=== PATIENT | female | born 1950 | race African-American/Black ===

== ENCOUNTER 2020-05-11 12:39 | Inpatient (IN) | payer OTHER ==
[2020-05-11] MEDS ORDERED: ACETAMINOPHEN 1000 MG/100 ML VIAL (NON FORMULARY) IVPB ONE (13:48)
--- NOTE | 2020-05-11 14:19 | PDOC ---
History of Present Illness - General Chief Complaint: Shortness of Breath Stated Complaint: CHF Time Seen by Provider: 05/11/20 13:10 History Source: Patient Exam Limitations: No Limitations - History of Present Illness Initial Comments: Herlinda logan is a 70 F with a PMH of Uncontrolled DM, Diabetic foot ulcer on R. foot, Chronic osteomyelitis of right foot, Diabetic neuropathy, Left leg below knee amputation, OA, Iron deficiency anemia, HLD, HTN, Charcot's joint, ESBL resistance and HF, was sent from [facility] for AMS, swelling of R.arm and face. Patient states that since last week she has experienced worsening SOB and swelling of her R.arm, abdomen, b/l legs, and face for 1 month. She reports a new onset of Right shoulder pain, that started yest erday, no falls/trauma. As per [facility] nursing team ([phone]), yesterday patient desat to 78% on RA, 2L NC sat to 90%, BP was elevated 165/95 (baseline aroun 150s/90s), patient was drooling, No falls, patient takes Lasix 40mg BID, last dose yesterday. 05/11/20 15:03 Past History - Medical History Allergies/Adverse Reactions: Allergies Allergy/AdvReac Type Severity Reaction Status Date / Time No Known Allergies Allergy Verified 05/11/20 13:38 CVA: Yes COPD: No CHF: Yes Diabetes: Yes HTN: Yes Hypercholesterolemia: Yes - Reproductive History Is Patient Now?: No - Psycho-Social/Smoking History Smoking History: Never smoked Have you smoked in the past 12 months: No Information on smoking cessation initiated: No - Substance Abuse Hx (Audit-C & DAST Scrn) How often the patient has a drink containing alcohol: Never Score: In Men: 4 or > Positive; In Women: 3 or > Positive: 0 Screen Result (Pos requires Nsg. Audit-10AR): Negative In the last yr the pt used illegal drug/Rx for NonMed reason: No Score: Yes response is considered Positive: 0 Screen Result (Positive result requires Nsg. DAST-10): Negative Review of Systems - Review of Systems Able to Perform ROS?: Yes Is the patient limited Sinhala proficient: No Constitutional: Yes: Chills. No: Fever, Loss of Appetite, Weakness HEENTM: No: Eye Pain, Blurred Vision, Nose Congestion, Throat Pain, Throat Swelling, Difficulty Swallowing Respiratory: Yes: Shortness of Breath, SOB at Rest, Wheezing. No: Cough, Productive cough Cardiac (ROS): Yes: Edema. No: Chest Pain, Irregular Heart Rate, Lighth eadedness, Syncope ABD/GI: Yes: Abdominal Distended. No: Constipated, Diarrhea, Vomiting : No: Burning, Dysuria Musculoskeletal: Yes: Joint Pain (b/l hip pain, right shoulder pain). No: Back Pain Integumentary: No: Bruising Neurological: No: Headache, Numbness, Tingling, Dizziness *Physical Exam - Vital Signs Last Vital Signs Temp Pulse Resp BP Pulse Ox 97.4 F L 92 H 17 169/101 H 97 05/11/20 12:59 05/11/20 12:59 05/11/20 12:59 05/11/20 12:59 05/11/20 12:59 - Physical Exam General Appearance: Yes: Apparent Distress, Moderate Distress HEENT: positive: EOMI, LUCIA. negative: Nasal Congestion, Rhinorrhea, Excessive drooling Neck: positive: Supple. negative: Tender, Rigid, Carotid bruit Respiratory/Chest: positive: Decreased Breath Sounds, Rales (b/l middle and lower lung worthy), Wheezing (inspiratory). negative: Chest Tender Vascular Pulses: Carotid (R): 2+, Carotid (L): 2+, Dorsalis-Pedis (R): 1+ Gastrointestinal/Abdominal: positive: Soft, Protuberent. negative: Tender, Tenderness Extremity: positive: Pedal Edema. negative: Calf Tenderness Integumentary: positive: Swelling (r. arm, face, eyes, ), Other (right foot s3 diabetic ulcer on the lateral aspect. dark skin discolorations extending to leg.) ED Treatment Course - LABORATORY CBC & Chemistry Diagram: 05/11/20 13:40 05/11/20 13:40 - RADIOLOGY Radiology Studies Ordered: Category Date Time Status CXRPORT [CHEST X-RAY PORTABLE*] [RAD] Stat Radiology 05/11/20 13:33 Completed DUPLEX VASCUL US-1 LEG [US] Stat Ultrasound 05/11/20 14:09 Ordered Medical Decision Making - Medical Decision Making 70 F with a PMH of Uncontrolled DM, Diabetic foot ulcer on R. foot, Chronic osteomyelitis of right foot, Diabetic neuropathy, Left leg below knee amputation, OA, Iron deficiency anemia, HLD, HTN, Charcot's joint, ESBL res istance and HF, was sent from [facility] for AMS, swelling of R.arm and face. #CHF exacerbation #possible Pneumonia - CXR: Cardiomegaly, fullness of the chirag and congestive changes with right pleural fluid. superimposed infiltrates cannot be excluded - u/s Upper R extremity and R. Lower extremity: No DVT - Shoulder XR: - LAB: - WBC 14.6 (4.2- 04/28/20-[facility]), BUN/Crea 34.3/2.0 (32/1.40) - AST: 909(23), ALT 748(35), AKLP 351(268) - Trop 0.25, BNP 75508 - Furosemide 40 mg (home Lasix 40mg BID), Acetaminophen 1000mg, Vanc 1g + Azithromycin 500mg + Zosyn 4.5 - BLD cultures 05/11/20 16:54 05/11/20 17:42 Discharge - Discharge Information Problems reviewed: Yes Clinical Impression/Diagnosis: Elevated liver enzymes Acute on chronic renal failure Qualifiers: Acute renal failure type: unspecified Chronic kidney disease stage: unspecified stage Qualified Code(s): N17.9 - Acute kidney failure, unspecified Right lower lobe pneumonia Qualifiers: Pneumonia type: due to unspecified organism Qualified Code(s): J18.9 - Pneumonia, unspecified organism CHF (congestive heart failure) Qualifiers: Heart failure type: unspecified Heart failure chronicity: unspecified Qualified Code(s): I50.9 - Heart failure, unspecified Condition: Guarded - Admission Yes - Follow up/Referral Referrals: ON STAFF,NOT [Primary Care Provider] - - Patient Discharge Instructions - Post Discharge Activity
[2020-05-11] MEDS ORDERED: ACETAMINOPHEN INJECTION 100 ML IVPB ONE (14:27)
[2020-05-11 14:52] LABS: BASO % 0.2 % (0-2.0); HEMATOCRIT 35.9 % (32.4-45.2); HEMOGLOBIN 11.3 GM/dL (10.7-15.3); LYMPH % 2.3 % (8-40); MCH 27.1 pg (25.7-33.7); MCHC 31.4 g/dl (32.0-36.0); MEAN CELL VOLUME 86.5 fl (80-96); MEAN PLT VOLUME 9.2 fl (7.5-11.1); MONO % 5.1 % (3.8-10.2); NEUT % 92.4 % (42.8-82.8); PLATELET COUNT 202 K/MM3 (134-434); RBC 4.15 M/mm3 (3.60-5.2); RDW 20.3 % (11.6-15.6); WHITE BLOOD COUNT 14.6 K/mm3 (4.0-10.0)
[2020-05-11 15:43] LABS: ANISOCYTOSIS 1+; MACROCYTOSIS 1+; PLATELET ESTIMATE NORMAL
--- NOTE | 2020-05-11 15:54 | PDOC ---
Documentation entered by Sheila Guido SCRIBE, acting as scribe for Abdoulaye Dorsey MD. Abdoulaye Dorsey MD: This documentation has been prepared by the Lata medrano Xhesika, SCRIBE, under my direction and personally reviewed by me in its entirety. I confirm that the documentation accurately reflects all work, treatment, procedures, and medical decision making performed by me. Attending Attestation - Resident Resident Name: Tod Ragsdale - ED Attending Attestation I have performed the following: I have examined & evaluated the patient, The case was reviewed & discussed with the resident, I agree w/resident's findings & plan, Exceptions are as noted - HPI HPI: 05/11/20 13:26 The patient is a 70y/o F with a PMH of Uncontrolled DM, Diabetic foot ulcer on R. foot, Chronic osteomyelitis of right foot, Diabetic neuropathy, Left leg BKA, OA, Iron deficiency anemia, HLD, HTN, Charcot's joint, ESBL resistance and CHF who presents to the ED BIBA from [facility] with AMS and arm swelling. Pt reports R arm and face swelling. The patient notes she has had sob and overall swelling (abd, legs, arms) for the past few weeks, also notes increasingly sob. denies any fever/chills, cp, n/v, diaphoresis, cough, dairhrea, dysuria. - Physicial Exam PE: 05/11/20 14:19 General GENERAL: The patient is awake, alert x 2, and fully oriented, Nontoxic - in no acute distress. HEAD: Normocephalic, atraumatic. EYES: extraocular movements intact, bl chemosis. ENT: Normal voice, Moist mucous membranes. NECK: Normal range of motion, supple LUNGS: deminished breath sounds, scant rales at bases HEART: regular ABDOMEN: Soft, nontender, No guarding, no rebound. No CVA tenderness EXTREMITIES: Normal range of motion, sp L BKA, RLE +1 pitting edema, RUE +1 pitting edema, n/v intact, ulcer on the R 5th metatarsal NEUROLOGICAL: No facial assymetry, Normal speech, moving all 4 ext spontaneously and symmetrically PSYCH: Normal mood, normal affect. SKIN: Warm, Dry, normal turgor, - Medical Decision Making 05/11/20 14:17 suspect chf exacerbation will obtian US to ro DVT fluid restriction cxr noted for ocngestion anticipate admission for further management 05/11/20 16:30 labs reviewed noted for cr [id number] to 2.0 (previous 1.7) LFTs eelvated (normal LFTs from [facility]) BNP elevated note for elevated WBC, +RLL infiltrate will treat for pna with HCAP will admit for further management for CHF, elevated LFTs possibley related to CHF, no RUQ pain/tenderness Heart Score/ECG Review - ECG Impressions Comment:: 05/11/20 14:53 Twelve-lead EKG was performed and reviewed by me. There is normal sinus rhythm with a normal rate. rate of 95 normal axis Discharge - Discharge Information Problems reviewed: Yes Clinical Impression/Diagnosis: Elevated liver enzymes Acute on chronic renal failure Qualifiers: Acute renal failure type: unspecified Chronic kidney disease stage: unspecified stage Qualified Code(s): N17.9 - Acute kidney failure, unspecified Right lower lobe pneumonia Qualifiers: Pneumonia type: due to unspecified organism Qualified Code(s): J18.9 - Pneumonia, unspecified organism CHF (congestive heart failure) Qualifiers: Heart failure type: unspecified Heart failure chronicity: unspecified Qualified Code(s): I50.9 - Heart failure, unspecified Condition: Guarded - Admission Yes - Follow up/Referral - Patient Discharge Instructions - Post Discharge Activity
[2020-05-11 15:56] LABS: ALBUMIN 2.9 g/dl (3.4-5.0); BLOOD UREA NITROGEN 34.3 mg/dL (7-18); CALCIUM 9.2 mg/dL (8.5-10.1); MAGNESIUM 2.3 mg/dL (1.8-2.4); POTASSIUM 4.2 mmol/L (3.5-5.1); TOT PROT 8.3 g/dl (6.4-8.2)
[2020-05-11 16:01] LABS: N-TERMINAL BNP 16380.4 pg/ml (5-125); PHOSPHOROUS 3.7 mg/dL (2.5-4.9)
[2020-05-11] MEDS ORDERED: PIPERACILLIN/TAZOB 4.5 GM 4.5 GM in DEXTROSE 5%-WATER 100 ML IVPB ONE (16:38)
[2020-05-11] MEDS ORDERED: AZITHROMYCIN IVPB 500 MG in DEXTROSE 5%-WATER - 250 ML IVPB ONE (16:38)
[2020-05-11] MEDS ORDERED: FUROSEMIDE 40 MG/4 ML INJECTABLE VIAL IVPUSH ONE ×2 (16:38→23:18)
[2020-05-11] MEDS ORDERED: VANCOMYCIN 1 GM in D5W (PRE-DOCKED) 1,000 MG/250 ML IVPB ONE (16:50)
[2020-05-11] MEDS ORDERED: PIPERACILLIN/TAZOB 4.5 GM 4.5 GM/100 ML BAG IVPB ONE (17:08)
[2020-05-11] MEDS ORDERED: FUROSEMIDE 40 MG/4 ML INJECTABLE VIAL ONE (17:08)
[2020-05-11] MEDS ORDERED: VANCOMYCIN 1 GRAM (PRE-DOCKED) 1,000 MG/250 ML BAG IVPB ONE (17:10)
[2020-05-11] MEDS ORDERED: AZITHROMYCIN IVPB 500 MG/250 ML BAG IVPB ONE (17:10)
[2020-05-11 19:47] LABS: EPI CELLS 5 /uL (0-25.1); HYALINE CASTS 0 /uL (0-3.1); URINE APPEARANCE CLOUDY; URINE BACTERIA 1940 /uL (0-1359); URINE BILIRUBIN NEGATIVE (NEGATIVE); URINE COLOR DK YELLOW; URINE GLUCOSE (UA) NEGATIVE (NEGATIVE); URINE KETONE NEGATIVE (NEGATIVE); URINE LEUK ESTERASE 3+ (NEGATIVE); URINE NITRITE NEGATIVE (NEGATIVE); URINE PROTEIN 3+ (NEGATIVE); URINE WBC 1325 /uL (0-25.8)
--- NOTE | 2020-05-11 20:05 | PN ---
Teaching Attending Note Name of Resident: Toñito Schuster ATTENDING PHYSICIAN STATEMENT I saw and evaluated the patient. I reviewed the resident's note and discussed the case with the resident. I agree with the resident's findings and plan as documented. SUBJECTIVE: Patient is a 70 year old woman from [facility] with a PMH of NIDDM, Diabetic foot ulcer on right foot, Chronic osteomyelitis of right foot, Diabetic neuropathy, Left leg below knee amputation, Osteoarthritis, Iron deficiency anemia, HLD, HTN, Charcot's joint, ESBL infection and CHF presenting with AMS, swelling of right arm and face. Patient states that since last week she has experienced worsening SOB and swelling of her right arm, abdomen, legs and face for 1 month. She reports a new onset of Right shoulder pain, that started yesterday. Denies falls or trauma. As per [facility] nursing team ([phone]), yesterday patient desaturated to 78% on RA got 2L NC and improved to 90%. BP was elevated 165/95 (baseline around 150s/90s) and patient was drooling. Patient takes Lasix 40mg BID - last dose yesterday. Patient denies chest pain, abdominal pain, headache, palpitations, dizziness, fever, chills, nausea, vomiting, diarrhea, constipation, dysuria, frequency, urgency, melena, hematochezia or hematuria. Denies alcohol, tobacco or illicit drug use. No sick contacts or recent travels. Family history is unremarkable. OBJECTIVE: Alert Vital Signs Period Temp Pulse Resp BP Sys/Dobson Pulse Ox Last 24 Hr 97.4 F 89-92 17-18 129-169/79-101 95-97 HEENT: No Jaundice, eye redness or discharge, PERRLA, EOMI. Normocephalic, atraumatic. External ears are normal and hearing is grossly intact. No nasal discharge. Neck: Supple, nontender. No palpable adenopathy or thyromegaly. No JVD Chest: Firm right breast with peau d'orange. Good effort. Clear to auscultation and percussion. Heart: Regular. No S3, rub or murmur Abdomen: Not distended, right abdominal wall peau d'orange, nontender and no HSM. No rebound or guarding. Normal bowel sounds. Ext: Peripheral pulses intact. Generalized edema; Left BKA. Leg edema. Ulcer on right 5th toe. Skin: Warm and dry. No petechiae, rash or ecchymosis. Neuro: Alert. Oriented x3. CN 2-12 grossly intact. Sensation grossly intact in all four extremities and DTR are symmetric. Psych: Appropriate mood and affect. Good insight. Home Medications Medication Instructions Recorded Aspirin 81 mg PO ONCE 05/11/20 Atorvastatin Ca [Lipitor] 80 mg PO HS 05/11/20 Ferrous Sulfate 325 mg PO ASDIR 05/11/20 Furosemide [Lasix -] 40 mg PO BID 05/11/20 Gabapentin 100 mg PO QID 05/11/20 Gabapentin 300 mg PO ONCE 05/11/20 Insulin Glargine,Hum.rec.anlog 15 unit SQ ONCE 05/11/20 [Basaglar Kwikpen U-100] Losartan Potassium 25 mg PO ONCE 05/11/20 Metoprolol Succinate 50 mg PO ONCE 05/11/20 Sennosides [Senno] 17.2 mg PO ONCE 05/11/20 Abnormal Lab Results 05/11/20 05/11/20 05/11/20 13:40 13:40 13:40 WBC 14.6 H MCHC 31.4 L RDW 20.3 H Absolute Neuts (auto) 13.5 H Neutrophils % 92.4 H Neutrophils % (Manual) 93.1 H Lymphocytes % 2.3 L Lymphocytes % (Manual) 3.0 L BUN 34.3 H Creatinine 2.0 H Random Glucose 137 H AST 909 H ALT 748 H Alkaline Phosphatase 351 H Creatine Kinase 206 H Troponin I 0.25 H B-Natriuretic Peptide 25589.4 H Total Protein 8.3 H Albumin 2.9 L Urine Protein Urine Blood Ur Leukocyte Esterase 05/11/20 05/11/20 16:45 19:28 WBC MCHC RDW Absolute Neuts (auto) Neutrophils % Neutrophils % (Manual) Lymphocytes % Lymphocytes % (Manual) BUN Creatinine Random Glucose AST ALT Alkaline Phosphatase Creatine Kinase Troponin I 0.28 H B-Natriuretic Peptide Total Protein Albumin Urine Protein 3+ H Urine Blood 3+ H Ur Leukocyte Esterase 3+ H Current Medications Generic Name Dose Route Start Last Admin Trade Name Freq PRN Reason Stop Dose Admin Aspirin 81 mg 05/11/20 23:30 Asa - PO ONCE SERAFIN Atorvastatin Calcium 80 mg 05/12/20 22:00 Lipitor - PO HS SERAFIN Ferrous Sulfate 325 mg 05/12/20 08:00 Feosol - PO DAILY@0800 [facility] Heparin Sodium (Porcine) 5,000 unit 05/12/20 06:00 Heparin - SQ TID SERAFIN Meropenem 1 gm/ Dextrose 100 mls @ 200 mls/hr 05/12/20 02:00 IVPB Q8H-IV SERAFIN Vancomycin HCl 1,500 mg/ 500 mls @ 250 mls/hr 05/12/20 20:00 Dextrose IVPB Q24H SERAFIN Protocol Meropenem 1 gm/ Dextrose 100 mls @ 200 mls/hr 05/12/20 02:00 IVPB 05/12/20 18:29 Q8H-IV SERAFIN Vancomycin HCl 1,500 mg/ 500 mls @ 250 mls/hr 05/12/20 20:00 Dextrose IVPB 05/12/20 21:59 Q24H SERAFIN Protocol Insulin Aspart 0 vial 05/12/20 07:00 Novolog Vial Sliding Scale - SQ ACHS SERAFIN Protocol Losartan Potassium 25 mg 05/11/20 23:30 Cozaar - PO ONCE SERAFIN Metoprolol Succinate 50 mg 05/11/20 23:30 Toprol Xl - PO ONCE SERAFIN ASSESSMENT AND PLAN: 1. CHF exacerbation/Pleural effusion/UTI/?Breast cancer?Pneumonia? - CXR shows cardiomegaly, elevated right hemidiaphragm, right pleural effusion and pulmonary vascular congestion with possible RLL infiltrate. Will get a CT scan of chest/abdomen/pelvis for further clarification. Shoulder xray didnot reveal any fracture or dislocation. Vascular studies of upper and lower extremities didnot reveal DVT. Will get right breast sonogram, mammogram, send for tumor markers and consult Oncology. Sepsis workup done. ER staff prescribed Tylenol, IV Azithromycin, Vancomycin, Zosyn and IV Lasix for the patient. Due to unspecified history of ESBL infection, will treat with IV Meropenem and Vancomycin and consult ID. Hepatic congestion due to CHF may explain elevated LFTs, but will get hepatitis serology. Provide daily wound care for right 5th toe ulcer. Consult Podiatry. Elevated troponin may be due to decreased clearance and/or demand ischemia. EKG shows NSR at 95/minute and QTc 417, diffuse T wave flattening with no significant ST changes. No old EKG available for comparison. Will admit to telemetry, trend troponin, rule out ACS, get ECHO, TSH, treat with escalating doses of IV Lasix to achieve adequate diuresis, restrict dietary salt intake, monitor renal function, monitor and replete electrolytes, get daily weight and consult Cardiology. Viral testing for COVID-19 ordered and patient placed on airborne, droplet and contact isolation. Started on supplemental oxygen via nasal cannula. Will continue comprehensive care for all of patients comorbid conditions. 2. Hypoalbuminemia - Possibly due to combined effects of proteinuria, malnutrition and inflammation associated with comorbid conditions. Will ensure adequate dietary protein intake and also consult household refrigeration mechanic. 3. DM For now, we will hold the home diabetes drugs and implement sliding scale insulin regimen. Provide comprehensive diabetes care with patient teaching and counseling about the importance of adherence to prescribed diabetes regimen, euglycemia, eye care and foot care. 4. CKD with ?TONIA May have underlying diabetic nephropathy. Will get urine protein/creatinine ratio, PTH, phosphate, kidney sonogram, monitor urine output and consult Nephrology. Avoid nephrotoxic agents such as NSAIDS, aminoglycosides, contrast dyes and certain Alternative medicine products. 5. Morbid obesity Counseled on the risks associated with obesity. Will provide patient all the necessary assistance, counseling and positive reinforcement to facilitate weight loss. Consult household refrigeration mechanic. 6. Hypertension Will restart suitable outpatient antihypertensive drugs when clinically appropriate. Subsequently, will revise regimen to ensure [id number] excellent BP control. Patient counseled on the injurious effects of uncontrolled hypertension. Nonpharmacologic measures to control hypertension like weight loss, salt restriction and exercise stressed. Importance of adherence to treatment regimen and attainment of normotension emphasized. 7. DVT prophylaxis - Heparin 5000u sq tid. 8. Advance directives - Full code
[2020-05-11 21:55] LABS: URINE RBC 32.6 /uL (0-23.9)
[2020-05-11] MEDS ORDERED: ASPIRIN 81 MG CHEWABLE TABLETS PO SCH (23:30)
[2020-05-11] MEDS ORDERED: LOSARTAN POTASSIUM 25 MG TABLET PO SCH (23:30)
[2020-05-11] MEDS ORDERED: VANCOMYCIN HCL 1,500 MG in DEXTROSE 5%-WATER - 500 ML IVPB SCH (23:45)
[2020-05-12] MEDS ORDERED: ASPIRIN 81 MG CHEWABLE TABLETS ONE ×2 (00:04→13:13)
[2020-05-12] MEDS ORDERED: LOSARTAN POTASSIUM 50 MG TABLET (FP) ONE (00:05)
[2020-05-12] MEDS ORDERED: FUROSEMIDE 40 MG/4 ML INJECTABLE VIAL ONE ×2 (00:05→10:44)
--- NOTE | 2020-05-12 01:42 | HP ---
CHIEF COMPLAINT: SOB x 2months and Lt arm pain x1 duration AND Rt arm swelling of about a month HISTORY OF PRESENT ILLNESS: Ms. Tito Figueroa is 70 yo female with a PMHx of HTN, DM-13yrs, HLD, CHF, ESBL resistance and CHF. SOB was first noticed when patient attempted to move from her wheelchair to her bed and has been worsening since then.. It is relieved by deep breaths and worsened by physical exertion, severity is 5-6/10. There is assoc diarrhea of about 2-3cups, not mixed with blood, no melena or hematemesis Pt. denies assoc chest pain, cough,fever, constipation, jaundice, ACEVEDO, seizures or dizziness Left shoulder pain aching, was of gradual onset but rapidly progressed to become worse. It is located at the tip of the Rt. shoulder, non radiating, 8/10 in severity, worsened by pressure, no known relieving factor. No hx of trauma or surgery on affected hand and no similar pain in other joints. Rt. arm pain was also of gradual onset, involves the left upper limb and extends to involves the left breast, left chest wall and left abd wall and left lower limb with a peau d'orange appearance. 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 2 para 2 Allergies No Known Allergies to food, meds or latex No significant PMH Surg Hx: FHx:None Home Medications Medication Instructions Recorded Aspirin 81 mg PO ONCE 05/11/20 Atorvastatin Ca [Lipitor] 80 mg PO HS 05/11/20 Ferrous Sulfate 325 mg PO ASDIR 05/11/20 Furosemide [Lasix -] 40 mg PO BID 05/11/20 Gabapentin 100 mg PO QID 05/11/20 Gabapentin 300 mg PO ONCE 05/11/20 Insulin Glargine,Hum.rec.anlog 15 unit SQ ONCE 05/11/20 [Basaglar Kwikpen U-100] Losartan Potassium 25 mg PO ONCE 05/11/20 Metoprolol Succinate 50 mg PO ONCE 05/11/20 Sennosides [Senno] 17.2 mg PO ONCE 05/11/20 REVIEW OF SYSTEMS Negative except as above PHYSICAL EXAMINATION Vital Signs - 24 hr 05/11/20 05/11/20 05/11/20 12:59 19:43 21:58 Temperature 97.4 F L 98.6 F Pulse Rate 92 H Pulse Rate [ 89 80 Right] Respiratory 17 18 20 Rate Blood Pressure 169/101 H Blood Pressure 129/79 141/85 [Right Arm] O2 Sat by Pulse 97 95 96 Oximetry (%) 05/12/20 05/12/20 00:21 00:22 Temperature Pulse Rate Pulse Rate [ 78 Right] Respiratory 22 H Rate Blood Pressure Blood Pressure 151/89 [Right Arm] O2 Sat by Pulse 100 100 Oximetry (%) GENERAL: Awake, alert, and fully oriented obvious respiration distress. HEAD: Normal with no signs of trauma. EYES: Pupils equal, round and reactive to light, extraocular movements intact, sclera anicteric, conjunctiva clear. No lid lag. EARS, NOSE, THROAT: Ears normal, nares patent, no swelling or discharge NECK: no lymphadenopathy, JVD, or masses. LUNGS: Patient is on oxygen,bBronchial breath sounds heard, no increased tactile fremitus on percussion. No wheezes no crackles. No accessory muscle use. HEART: Repeat OR and BP on exam are 81 and 141/85 respectively. Regular rate and rhythm, normal S1 and S2 without murmur, rub or gallop. ABDOMEN: Soft, distended, firm, with peau d'orange appearance.Unable to palpate for liver and spleen due to firm consistency. Hower skin over liver was hyperemic with peau d'orange MUSCULOSKELETAL: Below knee amputation UPPER EXTREMITIES: extensice edema and peau d'orange appearance of left arm LOWER EXTREMITIES: Below knee amputation of Lt knee with peau, d,orange appearance of PSYCHIATRIC: Cooperative. Good eye contact. Appropriate mood and affect. SKIN: Warm, dry, peau d'orange appearance of skin. Laboratory Results - last 24 hr 05/11/20 05/11/20 05/11/20 13:40 13:40 13:40 WBC 14.6 H RBC 4.15 Hgb 11.3 Hct 35.9 MCV 86.5 MCH 27.1 MCHC 31.4 L RDW 20.3 H Plt Count 202 MPV 9.2 Absolute Neuts (auto) 13.5 H Neutrophils % 92.4 H Neutrophils % (Manual) 93.1 H Band Neutrophils % 0.0 Lymphocytes % 2.3 L Lymphocytes % (Manual) 3.0 L Monocytes % 5.1 Monocytes % (Manual) 4 Eosinophils % 0.0 Eosinophils % (Manual) 0.0 Basophils % 0.2 Basophils % (Manual) 0.0 Myelocytes % (Man) 0 Promyelocytes % (Man) 0 Blast Cells % (Manual) 0 Nucleated RBC % 0 Metamyelocytes 0 Hypochromia 0 Platelet Estimate Normal Polychromasia 0 Poikilocytosis 0 Anisocytosis 1+ Microcytosis 0 Macrocytosis 1+ Sodium 140 Potassium 4.2 Chloride 105 Carbon Dioxide 26 Anion Gap 9 BUN 34.3 H Creatinine 2.0 H Est GFR (CKD-EPI)AfAm 28.59 Est GFR (CKD-EPI)NonAf 24.67 POC Glucometer Random Glucose 137 H Calcium 9.2 Phosphorus 3.7 Magnesium 2.3 Total Bilirubin 1.0 AST 909 H ALT 748 H Alkaline Phosphatase 351 H Creatine Kinase 206 H Creatine Kinase Index 0.9 CK-MB (CK-2) 1.9 Troponin I 0.25 H B-Natriuretic Peptide 81711.4 H Total Protein 8.3 H Albumin 2.9 L TSH 3.52 Urine Color Urine Appearance Urine pH Ur Specific [place] Urine Protein Urine Glucose (UA) Urine Ketones Urine Blood Urine Nitrite Urine Bilirubin Urine Urobilinogen Ur Leukocyte Esterase Urine WBC (Auto) Urine RBC (Auto) Urine Casts (Auto) U Epithel Cells (Auto) Urine Bacteria (Auto) 05/11/20 05/11/20 05/12/20 16:45 19:28 00:32 WBC RBC Hgb Hct MCV MCH MCHC RDW Plt Count MPV Absolute Neuts (auto) Neutrophils % Neutrophils % (Manual) Band Neutrophils % Lymphocytes % Lymphocytes % (Manual) Monocytes % Monocytes % (Manual) Eosinophils % Eosinophils % (Manual) Basophils % Basophils % (Manual) Myelocytes % (Man) Promyelocytes % (Man) Blast Cells % (Manual) Nucleated RBC % Metamyelocytes Hypochromia Platelet Estimate Polychromasia Poikilocytosis Anisocytosis Microcytosis Macrocytosis Sodium Potassium Chloride Carbon Dioxide Anion Gap BUN Creatinine Est GFR (CKD-EPI)AfAm Est GFR (CKD-EPI)NonAf POC Glucometer 137 Random Glucose Calcium Phosphorus Magnesium Total Bilirubin AST ALT Alkaline Phosphatase Creatine Kinase Creatine Kinase Index CK-MB (CK-2) Troponin I 0.28 H B-Natriuretic Peptide Total Protein Albumin TSH Urine Color Dk yellow Urine Appearance Cloudy Urine pH 5.0 Ur Specific [place] 1.016 Urine Protein 3+ H Urine Glucose (UA) Negative Urine Ketones Negative Urine Blood 3+ H Urine Nitrite Negative Urine Bilirubin Negative Urine Urobilinogen 1.0 Ur Leukocyte Esterase 3+ H Urine WBC (Auto) 1325 Urine RBC (Auto) 32.6 Urine Casts (Auto) 0 U Epithel Cells (Auto) 5 Urine Bacteria (Auto) 1939 ASSESSMENT/PLAN: # ACUTE CHF EXACERBATION known CHF patient BNP =[address] findings Echo cardiography iv lasix 80mg daily, rechek strict urine input/output daily weight measurement daily fluid restriction to trend troponin consult 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 assembler consult 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 helper #uti hematuria RBC 2+ Leucocyte esterasen3+ Bacteria leucocytosis with left shift # Possible breast malignancy left breast mass on exam peau d'orange appearance of left Breast mammogram and Stat chest/abd/pelvic CT Cancer markers: CEA, CA 19-9 Antibiotics: meropenem, vancomysin #TONIA BUN 34.3 Creatinine 2 CHF Gentle hydration given concern for CHF N/S 42cc/hr #Troponemia Increase from 0.25 to 0.28 since admission Likely due to reduced excretion from TONIA No c/o of chest pain Repeat troponin in 6hrs #Transaminitis AST/ALT = 909/747 ALP 351 CK 206 Hepatitis panel to R/O hepatitis CHF is usually assoc with impaired hepatic function If breast malignancy is proven to be present, it could equally explain the raised enzymes # DM: Known diabtic Iss No salt,low fat diet ACHS after meal BGM HbA1c Pt to see electronics engineering technician and opthalmologist on discharge # HLD Continue home dose lipitor 80mg daily #Admit med surg DVT prophylaxis: Heparin 5000iu tid Visit type - Medication Review Med list reviewed for High Risk Meds patients 65 and older: Yes - Emergency Visit Emergency Visit: Yes ED Registration Date: 05/11/20 Care time: The patient presented to the Emergency Department on the above date and was hospitalized for further evaluation of their emergent condition. - New Patient This patient is new to me today: Yes Date on this admission: 05/11/20 - Critical Care Critical Care patient: No ATTENDING PHYSICIAN STATEMENT I saw and evaluated the patient. I reviewed the resident's note and discussed the case with the resident. I agree with the resident's findings and plan as documented. SUBJECTIVE: OBJECTIVE: ASSESSMENT AND PLAN:
[2020-05-12] MEDS: MEROPENEM 1 GM in DEXTROSE 5%-WATER 100 ML IVPB SCH ×3 (02:35→11:07)
[2020-05-12] MEDS ORDERED: HEPARIN NA (PORCINE) 5,000 UNITS/ML 1ML VIAL ONE (06:30)
[2020-05-12] MEDS: HEPARIN NA (PORCINE) 5,000 UNITS/ML 1ML VIAL SQ SCH ×3 (06:38→22:37)
[2020-05-12] MEDS ORDERED: INSULIN SLIDING SCALE (NOVOLOG) 1 VIAL SQ ONE (08:51)
--- NOTE | 2020-05-12 09:06 | EKG ---
Test Reason : Blood Pressure : / mmHG Vent. Rate : 078 BPM Atrial Rate : 078 BPM P-R Int : 138 ms QRS Dur : 064 ms QT Int : 422 ms P-R-T Axes : 056 078 118 degrees QTc Int : 481 ms NORMAL SINUS RHYTHM LOW VOLTAGE QRS CANNOT RULE OUT ANTERIOR INFARCT (CITED ON OR BEFORE 11-MAY-2020) ABNORMAL ECG WHEN COMPARED WITH ECG OF 11-MAY-2020 13:44, PREMATURE VENTRICULAR COMPLEXES ARE NO LONGER PRESENT NONSPECIFIC T WAVE ABNORMALITY, IMPROVED IN INFERIOR LEADS NONSPECIFIC T WAVE ABNORMALITY, IMPROVED IN LATERAL LEADS QT HAS LENGTHENED Confirmed by Jw Vegas ([id number]) on 05/12/2020 9:06:20 AM Referred By: Confirmed By:Jw Vegas
--- NOTE | 2020-05-12 09:08 | EKG ---
Test Reason : Blood Pressure : / mmHG Vent. Rate : 095 BPM Atrial Rate : 095 BPM P-R Int : 144 ms QRS Dur : 064 ms QT Int : 332 ms P-R-T Axes : 039 048 117 degrees QTc Int : 417 ms SINUS RHYTHM WITH SINUS ARRHYTHMIA WITH OCCASIONAL PREMATURE VENTRICULAR COMPLEXES LOW VOLTAGE QRS CANNOT RULE OUT ANTERIOR INFARCT , AGE UNDETERMINED ABNORMAL ECG NO PREVIOUS ECGS AVAILABLE Confirmed by Jw Vegas ([id number]) on 05/12/2020 9:08:29 AM Referred By: Confirmed By:Jw Vegas
[2020-05-12 09:09] LABS: ALBUMIN 2.5 g/dl (3.4-5.0); BILIRUBIN,TOTAL 1.3 mg/dL (0.2-1); MAGNESIUM 2.3 mg/dL (1.8-2.4); POTASSIUM 4.1 mmol/L (3.5-5.1); TOT PROT 7.4 g/dl (6.4-8.2)
[2020-05-12] MEDS: INSULIN SLIDING SCALE (NOVOLOG) 1 VIAL SQ SCH ×4 (09:11→22:36)
[2020-05-12] MEDS: FERROUS SO4 325 MG TABLET (FP) PO SCH (09:12)
[2020-05-12] MEDS: FUROSEMIDE 40 MG/4 ML INJECTABLE VIAL IVPUSH SCH (10:00)
[2020-05-12] MEDS ORDERED: MEROPENEM 1 GM VIAL (RESTRICTED TO ID) IVPB ONE (10:45)
--- NOTE | 2020-05-12 10:54 | CON.ID ---
Consult Consult Specialty:: infectious diseases Referred by:: hospitalist Reason for Consultation:: bacteremia,sob,pain - History of Present Illness Chief Complaint: pain all over the body,weakness History of Present Illness: 70 yo female with a PMHx of HTN, DM, HLD, CHF, ESBL resistance and CHF. SOB which was first noticed when patient attempted to move from her wheelchair to her bed and has been worsening since then.. It is relieved by deep breaths and worsened by physical exertion Patient also c/o of dirrhoea which she has been having also c/o of let shoulder pain and generalized body ache patient was worked up and found to have gm negative bacteremia - History Source History Provided By: Patient Limitations to Obtaining History: No Limitations - Past Medical History ...: No - Smoking History Smoking history: Never smoked Have you smoked in the past 12 months: No Home Medications - Allergies Allergies/Adverse Reactions: Allergies Allergy/AdvReac Type Severity Reaction Status Date / Time No Known Allergies Allergy Verified 05/11/20 13:38 - Home Medications Home Medications: Ambulatory Orders Aspirin 81 mg PO DAILY 05/11/20 Atorvastatin Ca [Lipitor] 80 mg PO HS 05/11/20 Ferrous Sulfate 325 mg PO TID 05/11/20 Furosemide [Lasix -] 40 mg PO BID 05/11/20 Gabapentin 100 mg PO QID 05/11/20 Gabapentin 300 mg PO HS 05/11/20 Insulin Glargine,Hum.rec.anlog [Basaglar Kwikpen U-100] 15 unit SQ HS 05/11/20 Losartan Potassium 25 mg PO DAILY 05/11/20 Metoprolol Succinate 50 mg PO DAILY 05/11/20 Sennosides [Senno] 17.2 mg PO HS 05/11/20 Review of Systems - Review of Systems Constitutional: reports: Weakness Eyes: reports: No Symptoms HENT: reports: No Symptoms Neck: reports: No Symptoms Cardiovascular: reports: No Symptoms Respiratory: reports: SOB, SOB on Exertion Gastrointestinal: reports: Diarrhea Genitourinary: reports: No Symptoms Musculoskeletal: reports: Other (shoulder pain) Neurological: reports: No Symptoms Endocrine: reports: No Symptoms Hematology/Lymphatic: reports: No Symptoms Psychiatric: reports: No Symptoms Physical Exam Vital Signs: Vital Signs Temperature 98.6 F 05/12/20 06:52 Pulse Rate 87 05/12/20 06:52 Respiratory Rate 20 05/12/20 06:52 Blood Pressure 130/80 05/12/20 06:52 O2 Sat by Pulse Oximetry (%) 95 05/12/20 06:52 Constitutional: Yes: Obese, Other Eyes: Yes: Conjunctiva Clear HENT: Yes: Atraumatic, Normocephalic Neck: Yes: Supple, Trachea Midline Cardiovascular: Yes: Regular Rate and Rhythm Respiratory: Yes: Regular, CTA Bilaterally Gastrointestinal: Yes: Normal Bowel Sounds, Soft Musculoskeletal: Yes: WNL Extremities: Yes: Other Edema: LLE: 1+, RLE: 1+ Integumentary: Yes: Other (anasarca) Neurological: Yes: Alert, Oriented Psychiatric: Yes: Alert, Oriented Labs: CBC, BMP 05/12/20 08:00 05/12/20 08:00 Imaging - Results Chest X-ray: Report Reviewed, Image Reviewed Ultrasound: Report Reviewed, Image Reviewed Assessment/Plan this patient with multiple medical issues coming with weakness and sob and now positive blood cx will start patient on zosyn await for identification of the organism diuresis repeat blood cx tomorrow rest as per the team
[2020-05-12] MEDS: PIPERACILLIN/TAZOB 3.375 GM 3.375 GM in DEXTROSE 5%-WATER - 50 ML IVPB SCH ×2 (11:47→18:46)
--- NOTE | 2020-05-12 11:50 | ECHO ---
Version: 1 Name: CLOTILDE REEDER Exam: Adult Echocardiogram Study Date: 05/12/2020, 10:02 AM Age: 70 Years MMode/2D Measurements & Calculations IVSd: 1.29 cm LVIDs: 2.7 cm LVIDd: 3.6 cm LVPWd: 1.57 cm LAV (MOD-bp): 53.4 ml LVOT diam: 1.97 cm Ao root diam: 3.0 cm LA dimension: 3.2 cm Doppler Measurements & Calculations MV E max julien: 109.0 cm/sec Med E/e': 20.9 MV A max julien: 84.6 cm/sec Med Peak E' Julien: 5.2 cm/sec MV E/A: 1.29 Lat E/e': 15.4 Lat Peak E' Julien: 7.1 cm/sec Ao max P.5 mmHg Ao V2 max: 153.8 cm/sec PI end-d julien: 140.3 cm/sec TR max julien: 306.8 cm/sec TR max P.7 mmHg Procedure A complete two-dimensional transthoracic echocardiogram was performed (2D, M-mode, Doppler and color flow Doppler). Left Ventricle There is moderate concentric left ventricular hypertrophy. 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 Ejection Fraction = 40%. Left ventricular systolic function i s moderately reduced. Diastolic dysfunction, Grade III (restrictive pattern), consistent with markedly increased left atrial pressure. Right Ventricle The right ventricle is mildly dilated. The right ventricular systolic function is mildly reduced. Atria The left atrial size is normal. The right atrium is moderately dilated. Mitral Valve The mitral valve is normal in structure and function. There is no mitral valve stenosis. There is tr carmen mitral regurgitation. Tricuspid Valve The tricuspid valve is normal in structure and function. There is moderate tricuspid regurgitation. Right ventricular systolic pressure is elevated at 47 mmhg. There is mild pulmonary hypertension. Aortic Valve There is mild aortic valve thickening. The aortic valve is trileaflet. No hemodynamically significan t valvular aortic stenosis. No aortic regurgitation is present. Pulmonic Valve The pulmonic valve is normal in structure and function. Mild pulmonic valvular regurgitation. Great Vessels The aortic root is normal size. Pericardium/Pleura There is no pericardial effusion. There is a ascites present. Summary Statements There is moderate concentric left ventricular hypertrophy. Left ventricular systolic function is mod erately reduced. 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 Diastolic dysfunction, Grade III (restrictive pattern), consistent with markedly increased left atri al pressure. The right ventricular systolic function is mildly reduced. The right ventricle is mildly dilated. The right atrium is moderately dilated. There is mild pulmonary hypertension. There is moderate tric uspid regurgitation. There is a ascites present. Jw Vegas 05/12/2020, 11:49 AM Ordering Physician: Terrell Mitchell Performed By: Valeria Gaytan
[2020-05-12] MEDS ORDERED: PIPERACILLIN/TAZOB 3.375 GM 3.375 GM/50 ML BAG IVPB ONE (11:58)
--- NOTE | 2020-05-12 12:41 | CON.CARD ---
Consult Consult Specialty:: Cardiology - History of Present Illness History of Present Illness: The patient is a 70y/o F with a PMH of Uncontrolled DM, Diabetic foot ulcer on R. foot, Chronic osteomyelitis of right foot, Diabetic neuropathy, Left leg BKA, OA, Iron deficiency anemia, HLD, HTN, Charcot's joint, ESBL resistance and CHF who presents to the ED BIBA from [facility] on [facility] with AMS and arm swelling. Pt reports R arm and face swelling. The patient notes she has had sob and overall swelling (abd, legs, arms) for the past few weeks, also notes increasingly sob. denies any fever/chills, cp, n/v, diaphoresis, cough, dairhrea, dysuria. - History Source History Provided By: Patient, Medical Record - Past Medical History Cardio/Vascular: Yes: HTN, Hyperlipdemia ...: No - Smoking History Smoking history: Never smoked Have you smoked in the past 12 months: No Home Medications - Allergies Allergies/Adverse Reactions: Allergies Allergy/AdvReac Type Severity Reaction Status Date / Time No Known Allergies Allergy Verified 05/11/20 13:38 - Home Medications Home Medications: Ambulatory Orders Aspirin 81 mg PO ONCE 05/11/20 Atorvastatin Ca [Lipitor] 80 mg PO HS 05/11/20 Ferrous Sulfate 325 mg PO ASDIR 05/11/20 Furosemide [Lasix -] 40 mg PO BID 05/11/20 Gabapentin 100 mg PO QID 05/11/20 Gabapentin 300 mg PO ONCE 05/11/20 Insulin Glargine,Hum.rec.anlog [Basaglar Kwikpen U-100] 15 unit SQ ONCE 05/11/20 Losartan Potassium 25 mg PO ONCE 05/11/20 Metoprolol Succinate 50 mg PO ONCE 05/11/20 Sennosides [Senno] 17.2 mg PO ONCE 05/11/20 Review of Systems - Review of Systems Constitutional: reports: No Symptoms Eyes: reports: No Symptoms HENT: reports: No Symptoms Neck: reports: No Symptoms Cardiovascular: reports: Edema, Shortness of Breath Respiratory: reports: SOB, SOB on Exertion Gastrointestinal: reports: No Symptoms Genitourinary: reports: No Symptoms Breasts: reports: No Symptoms Reported Musculoskeletal: reports: No Symptoms Integumentary: reports: No Symptoms Neurological: reports: No Symptoms Endocrine: reports: No Symptoms Hematology/Lymphatic: reports: No Symptoms Psychiatric: reports: No Symptoms Vital Signs: Vital Signs Temperature 98.6 F 05/12/20 06:52 Pulse Rate 87 05/12/20 06:52 Respiratory Rate 20 05/12/20 06:52 Blood Pressure 130/80 05/12/20 06:52 O2 Sat by Pulse Oximetry (%) 95 05/12/20 06:52 Constitutional: Yes: Well Nourished, No Distress, Calm Eyes: Yes: WNL, Conjunctiva Clear, EOM Intact HENT: Yes: WNL, Atraumatic, Normocephalic Neck: Yes: WNL, Supple, Trachea Midline Respiratory: Yes: WNL, Regular, Diminished Gastrointestinal: Yes: WNL, Normal Bowel Sounds Renal/: Yes: WNL Cardiovascular: Yes: WNL, Regular Rate and Rhythm Musculoskeletal: Yes: WNL Extremities: Yes: Amputation Edema: Yes Integumentary: Yes: WNL Neurological: Yes: WNL, Alert, Oriented ...Motor Strength: WNL Psychiatric: Yes: WNL, Alert, Oriented - Other Data Labs, Other Data: CBC, BMP 05/12/20 08:00 05/12/20 08:00 Troponin, BNP 05/11/20 05/11/20 05/12/20 13:40 16:45 01:28 Troponin I 0.25 H 0.28 H 0.23 H B-Natriuretic Peptide 59784.4 H 05/12/20 08:00 Troponin I 0.16 H B-Natriuretic Peptide Troponin, BNP 05/11/20 05/11/20 05/12/20 13:40 16:45 01:28 Troponin I 0.25 H 0.28 H 0.23 H B-Natriuretic Peptide 68632.4 H 05/12/20 08:00 Troponin I 0.16 H B-Natriuretic Peptide Imaging - Results Chest X-ray: Image Reviewed (chf) EKG: Image Reviewed (sr apcs) Problem List - Problems (1) Acute on chronic renal failure Code(s): N17.9 - ACUTE KIDNEY FAILURE, UNSPECIFIED; N18.9 - CHRONIC KIDNEY D ISEASE, UNSPECIFIED Qualifiers: Acute renal failure type: unspecified Chronic kidney disease stage: unspecified stage Qualified Code(s): N17.9 - Acute kidney failure, unspecified; N18.9 - Chronic kidney disease, unspecified (2) CHF (congestive heart failure) Code(s): I50.9 - HEART FAILURE, UNSPECIFIED Qualifiers: Heart failure type: unspecified Heart failure chronicity: unspecified Qualified Code(s): I50.9 - Heart failure, unspecified (3) Elevated liver enzymes Code(s): R74.8 - ABNORMAL LEVELS OF OTHER SERUM ENZYMES (4) Right lower lobe pneumonia Code(s): J18.9 - PNEUMONIA, UNSPECIFIED ORGANISM Qualifiers: Pneumonia type: due to unspecified organism Qualified Code(s): J18.9 - Pneumonia, unspecified organism Assessment/Plan Imp; CHF TNIs DM s/p BKA Morbid obesity HLP TONIA UTI Plan; Lasix ABX ECHO CTA DVT plx
--- NOTE | 2020-05-12 12:47 | PN ---
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, Physician History of Present Illness: The patient is a 70y/o F with a PMH of Uncontrolled DM, Diabetic foot ulcer on R. foot, Chronic osteomyelitis of right foot, Diabetic neuropathy, Left leg BKA, OA, Iron deficiency anemia, HLD, HTN, Charcot's joint, ESBL resistance and CHF who presents to the ED BIBA from [facility] with AMS and arm swelling. Pt reports R arm and face swelling. The patient notes she has had sob and overall swelling (abd, legs, arms) for the past few weeks, also notes increasingly sob. denies any fever/chills, cp, n/v, diaphoresis, cough, dairhrea, dysuria. - Current Medication List Current Medications: Active Medications Atorvastatin Calcium (Lipitor -) 80 mg PO HS [facility] Ferrous Sulfate (Feosol -) 325 mg PO DAILY@0800 [facility] Last Admin: 05/12/20 09:12 Dose: 325 mg Documented by: Furosemide (Lasix Injection -) 80 mg IVPUSH DAILY [facility] Last Admin: 05/12/20 10:00 Dose: 80 mg Documented by: Heparin Sodium (Porcine) (Heparin -) 5,000 unit SQ TID [facility] Last Admin: 05/12/20 06:38 Dose: 5,000 unit Documented by: Piperacillin Sod/Tazobactam (Sod 3.375 gm/ Dextrose) 50 mls @ 100 mls/hr IVPB Q8H-IV [facility]; Protocol Last Admin: 05/12/20 11:47 Dose: 100 mls/hr Documented by: Insulin Aspart (Novolog Vial Sliding Scale -) 1 vial SQ ACHS [facility]; Protocol Last Admin: 05/12/20 11:45 Dose: 2 units Documented by: - Objective Vital Signs: Vital Signs Temperature 98.6 F 05/12/20 06:52 Pulse Rate 87 05/12/20 06:52 Respiratory Rate 20 05/12/20 06:52 Blood Pressure 130/80 05/12/20 06:52 O2 Sat by Pulse Oximetry (%) 95 05/12/20 06:52 Constitutional: Yes: Other (Anasarca) Eyes: Yes: WNL, Conjunctiva Clear, EOM Intact HENT: Yes: WNL, Atraumatic, Normocephalic Neck: Yes: WNL, Supple, Trachea Midline Cardiovascular: Yes: Regular Rate and Rhythm, Murmur, S1, S2 Respiratory: Yes: WNL, Regular, Diminished Gastrointestinal: Yes: WNL, Normal Bowel Sounds Genitourinary: Yes: WNL Musculoskeletal: Yes: WNL Edema: Yes Integumentary: Yes: WNL Neurological: Yes: WNL, Alert, Oriented ...Motor Strength: WNL Psychiatric: Yes: WNL Labs: CBC, BMP 05/12/20 08:00 05/12/20 08:00 Problem List - Problems (1) Acute on chronic renal failure Code(s): N17.9 - ACUTE KIDNEY FAILURE, UNSPECIFIED; N18.9 - CHRONIC KIDNEY DISEASE, UNSPECIFIED Qualifiers: Acute renal failure type: unspecified Chronic kidney disease stage: unspec ified stage Qualified Code(s): N17.9 - Acute kidney failure, unspecified; N18.9 - Chronic kidney disease, unspecified (2) CHF (congestive heart failure) Code(s): I50.9 - HEART FAILURE, UNSPECIFIED Qualifiers: Heart failure type: unspecified Heart failure chronicity: unspecified Qualified Code(s): I50.9 - Heart failure, unspecified (3) Elevated liver enzymes Code(s): R74.8 - ABNORMAL LEVELS OF OTHER SERUM ENZYMES (4) Right lower lobe pneumonia Code(s): J18.9 - PNEUMONIA, UNSPECIFIED ORGANISM Qualifiers: Pneumonia type: due to unspecified organism Qualified Code(s): J18.9 - Pneumonia, unspecified organism Assessment/Plan Imp; ECHO LVH , infiltrative cardiomyopathy, EKG low voltage r/o Amyloidosis Anasarca CHF TNIs DM s/p BKA Morbid obesity HLP TONIA UTI no DVT Plan; Lasix ABX Amyloidosis w/u DVT plx
[2020-05-12] MEDS: ASPIRIN COATED 81 MG TABLET.EC PO SCH (13:17)
--- NOTE | 2020-05-12 13:24 | CONSULT ---
Consultation: REQUESTING PROVIDER: Dr. Collins CONSULT REQUEST: We have been asked to medically evaluate this patient for malignancy. HISTORY OF PRESENT ILLNESS: Pt. is a 70 y.o. F w/ PMHx. of HTN, DM, HLD, diastolic and systolic heart failure, CKD (Stage 4?), and anemia presents from [facility] for worsening dyspnea on exertion. Hospital workup so for strongly suggests decompensated heart failure. We have been called to assess for "possible breast cancer." Pt. denies any weight loss and states " I feel more swollen, cant move my arms or legs." Pt. states she had a mammogram a while ago once which was negative and was never tested again. Pt. denies ever having a Pap Smear. Pt. had a colonoscopy 1 month ago which was negative. Pt. denies constipation or diarrhea (though on chart review endorsed it to the prior examiner). Pt. states she examines her self and she has not felt any new masses, noticed any skin changes, nor has she experienced any discharge from the nipple. Pt. endorses night sweats but attributes it to her environment. Pt. states that "she always" sweats at night especially in the assisted because the mattress does not breathe. When her nurses there place blankets on the bed prior to having her go on the bed neither the blankets nor the Pt. is wet in the morning. Pt. endorses swelling in her legs, arms and abdomen. Pt. states her abdomen has become more stiff. Pt. denies any blood in the stool or urine. Pt. denies any toxic habits. Pt. denies any family history of cancer. Pt. had lengthy discussion about the "ills of medicine and over diagnosing." Pt. is reluctant to start any new medication or undergo any investigative procedure for a possible cancer such that she has refused to get mammograms or Pap Smears. REVIEW OF SYSTEMS: above PHYSICAL EXAMINATION Vital Signs - 24 hr 05/11/20 05/11/20 05/12/20 19:43 21:58 00:21 Temperature 98.6 F Pulse Rate [ 89 80 78 Right] Respiratory 18 20 22 H Rate Blood Pressure 129/79 141/85 151/89 [Right Arm] O2 Sat by Pulse 95 96 100 Oximetry (%) 08/05/20 08/05/20 08/05/20 00:22 02:00 06:52 Temperature 98.3 F 98.6 F Pulse Rate [ 83 87 Right] Respiratory 16 20 Rate Blood Pressure 143/82 130/80 [Right Arm] O2 Sat by Pulse 100 98 95 Oximetry (%) GENERAL: Awake, alert, and fully oriented, in no acute distress. HEAD: Normal with no signs of trauma. EYES: Extraocular movements intact, sclera anicteric, conjunctiva clear. EARS, NOSE, THROAT: Moist mucous membranes. LUNGS: Breath sounds equal, clear to auscultation bilaterally. No wheezes, and no crackles. No accessory muscle use. Breast exam deferred, Discussed with Dr. Tavarez HEART: Regular rate and rhythm, normal S1 and S2 without murmur, rub or gallop. ABDOMEN: Firm/anasarca, nontender, not distended, normoactive bowel sounds, no guarding, UPPER EXTREMITIES: warm, well-perfused, edematous. LOWER EXTREMITIES: L. BKA 2+ radial pulses, warm, well-perfused. No calf tenderness. Significant dependant edema NEUROLOGICAL: Normal speech, gait not assessed SKIN: Warm, dry, anasarca throughout lower extremities and abdomen Laboratory Results - last 24 hr 05/11/20 05/11/20 05/11/20 13:40 13:40 13:40 WBC 14.6 H Corrected WBC (auto) RBC 4.15 Hgb 11.3 Hct 35.9 MCV 86.5 MCH 27.1 MCHC 31.4 L RDW 20.3 H Plt Count 202 MPV 9.2 Absolute Neuts (auto) 13.5 H Neutrophils % 92.4 H Neutrophils % (Manual) 93.1 H Band Neutrophils % 0.0 Lymphocytes % 2.3 L Lymphocytes % (Manual) 3.0 L Monocytes % 5.1 Monocytes % (Manual) 4 Eosinophils % 0.0 Eosinophils % (Manual) 0.0 Basophils % 0.2 Basophils % (Manual) 0.0 Myelocytes % (Man) 0 Promyelocytes % (Man) 0 Blast Cells % (Manual) 0 Nucleated RBC % 0 Metamyelocytes 0 Hypochromia 0 Platelet Estimate Normal Platelet Comment Polychromasia 0 Poikilocytosis 0 Anisocytosis 1+ Microcytosis 0 Macrocytosis 1+ Sodium 140 Potassium 4.2 Chloride 105 Carbon Dioxide 26 Anion Gap 9 BUN 34.3 H Creatinine 2.0 H Est GFR (CKD-EPI)AfAm 28.59 Est GFR (CKD-EPI)NonAf 24.67 POC Glucometer Random Glucose 137 H Hemoglobin A1c % Calcium 9.2 Phosphorus 3.7 Magnesium 2.3 Total Bilirubin 1.0 AST 909 H ALT 748 H Alkaline Phosphatase 351 H Creatine Kinase 206 H Creatine Kinase Index 0.9 CK-MB (CK-2) 1.9 Troponin I 0.25 H B-Natriuretic Peptide 04467.4 H Total Protein 8.3 H Albumin 2.9 L Triglycerides Cholesterol Total LDL Cholesterol HDL Cholesterol TSH 3.52 Urine Color Urine Appearance Urine pH Ur Specific [place] Urine Protein Urine Glucose (UA) Urine Ketones Urine Blood Urine Nitrite Urine Bilirubin Urine Urobilinogen Ur Leukocyte Esterase Urine WBC (Auto) Urine RBC (Auto) Urine Casts (Auto) U Epithel Cells (Auto) Urine Bacteria (Auto) COVID-19 (BETHEL) 05/11/20 05/11/20 05/11/20 16:20 16:45 19:28 WBC Corrected WBC (auto) RBC Hgb Hct MCV MCH MCHC RDW Plt Count MPV Absolute Neuts (auto) Neutrophils % Neutrophils % (Manual) Band Neutrophils % Lymphocytes % Lymphocytes % (Manual) Monocytes % Monocytes % (Manual) Eosinophils % Eosinophils % (Manual) Basophils % Basophils % (Manual) Myelocytes % (Man) Promyelocytes % (Man) Blast Cells % (Manual) Nucleated RBC % Metamyelocytes Hypochromia Platelet Estimate Platelet Comment Polychromasia Poikilocytosis Anisocytosis Microcytosis Macrocytosis Sodium Potassium Chloride Carbon Dioxide Anion Gap BUN Creatinine Est GFR (CKD-EPI)AfAm Est GFR (CKD-EPI)NonAf POC Glucometer Random Glucose Hemoglobin A1c % Calcium Phosphorus Magnesium Total Bilirubin AST ALT Alkaline Phosphatase Creatine Kinase Creatine Kinase Index CK-MB (CK-2) Troponin I 0.28 H B-Natriuretic Peptide Total Protein Albumin Triglycerides Cholesterol Total LDL Cholesterol HDL Cholesterol TSH Urine Color Dk yellow Urine Appearance Cloudy Urine pH 5.0 Ur Specific [place] 1.016 Urine Protein 3+ H Urine Glucose (UA) Negative Urine Ketones Negative Urine Blood 3+ H Urine Nitrite Negative Urine Bilirubin Negative Urine Urobilinogen 1.0 Ur Leukocyte Esterase 3+ H Urine WBC (Auto) 1325 Urine RBC (Auto) 32.6 Urine Casts (Auto) 0 U Epithel Cells (Auto) 5 Urine Bacteria (Auto) 1940 COVID-19 (BETHEL) Not detected 05/12/20 05/12/20 05/12/20 00:32 01:28 07:41 WBC Corrected WBC (auto) RBC Hgb Hct MCV MCH MCHC RDW Plt Count MPV Absolute Neuts (auto) Neutrophils % Neutrophils % (Manual) Band Neutrophils % Lymphocytes % Lymphocytes % (Manual) Monocytes % Monocytes % (Manual) Eosinophils % Eosinophils % (Manual) Basophils % Basophils % (Manual) Myelocytes % (Man) Promyelocytes % (Man) Blast Cells % (Manual) Nucleated RBC % Metamyelocytes Hypochromia Platelet Estimate Platelet Comment Polychromasia Poikilocytosis Anisocytosis Microcytosis Macrocytosis Sodium Potassium Chloride Carbon Dioxide Anion Gap BUN Creatinine Est GFR (CKD-EPI)AfAm Est GFR (CKD-EPI)NonAf POC Glucometer 137 188 Random Glucose Hemoglobin A1c % Calcium Phosphorus Magnesium Total Bilirubin AST ALT Alkaline Phosphatase Creatine Kinase Creatine Kinase Index CK-MB (CK-2) Troponin I 0.23 H B-Natriuretic Peptide Total Protein Albumin Triglycerides Cholesterol Total LDL Cholesterol HDL Cholesterol TSH Urine Color Urine Appearance Urine pH Ur Specific [place] Urine Protein Urine Glucose (UA) Urine Ketones Urine Blood Urine Nitrite Urine Bilirubin Urine Urobilinogen Ur Leukocyte Esterase Urine WBC (Auto) Urine RBC (Auto) Urine Casts (Auto) U Epithel Cells (Auto) Urine Bacteria (Auto) COVID-19 (BETHEL) 05/12/20 05/12/20 05/12/20 08:00 08:00 08:00 WBC Cancelled Corrected WBC (auto) Cancelled RBC Cancelled Hgb Cancelled Hct Cancelled MCV Cancelled MCH Cancelled MCHC Cancelled RDW Cancelled Plt Count Cancelled MPV Cancelled Absolute Neuts (auto) Cancelled Neutrophils % Cancelled Neutrophils % (Manual) Band Neutrophils % Lymphocytes % Cancelled Lymphocytes % (Manual) Monocytes % Cancelled Monocytes % (Manual) Eosinophils % Cancelled Eosinophils % (Manual) Basophils % Cancelled Basophils % (Manual) Myelocytes % (Man) Promyelocytes % (Man) Blast Cells % (Manual) Nucleated RBC % Cancelled Metamyelocytes Hypochromia Platelet Estimate Cancelled Platelet Comment Cancelled Polychromasia Poikilocytosis Anisocytosis Microcytosis Macrocytosis Sodium 139 Potassium 4.1 Chloride 104 Carbon Dioxide 28 Anion Gap 7 L BUN 39.0 H Creatinine 2.0 H Est GFR (CKD-EPI)AfAm 28.59 Est GFR (CKD-EPI)NonAf 24.67 POC Glucometer Random Glucose 180 H Hemoglobin A1c % 8.6 H Calcium 9.0 Phosphorus 4.0 Magnesium 2.3 Total Bilirubin 1.3 H AST 320 H ALT 539 H Alkaline Phosphatase 296 H Creatine Kinase Creatine Kinase Index CK-MB (CK-2) Troponin I 0.16 H B-Natriuretic Peptide Total Protein 7.4 Albumin 2.5 L Triglycerides 79 Cholesterol 114 Total LDL Cholesterol 39 HDL Cholesterol 43 TSH 2.34 Urine Color Urine Appearance Urine pH Ur Specific [place] Urine Protein Urine Glucose (UA) Urine Ketones Urine Blood Urine Nitrite Urine Bilirubin Urine Urobilinogen Ur Leukocyte Esterase Urine WBC (Auto) Urine RBC (Auto) Urine Casts (Auto) U Epithel Cells (Auto) Urine Bacteria (Auto) COVID-19 (BETHEL) 05/12/20 11:45 WBC Corrected WBC (auto) RBC Hgb Hct MCV MCH MCHC RDW Plt Count MPV Absolute Neuts (auto) Neutrophils % Neutrophils % (Manual) Band Neutrophils % Lymphocytes % Lymphocytes % (Manual) Monocytes % Monocytes % (Manual) Eosinophils % Eosinophils % (Manual) Basophils % Basophils % (Manual) Myelocytes % (Man) Promyelocytes % (Man) Blast Cells % (Manual) Nucleated RBC % Metamyelocytes Hypochromia Platelet Estimate Platelet Comment Polychromasia Poikilocytosis Anisocytosis Microcytosis Macrocytosis Sodium Potassium Chloride Carbon Dioxide Anion Gap BUN Creatinine Est GFR (CKD-EPI)AfAm Est GFR (CKD-EPI)NonAf POC Glucometer 186 Random Glucose Hemoglobin A1c % Calcium Phosphorus Magnesium Total Bilirubin AST ALT Alkaline Phosphatase Creatine Kinase Creatine Kinase Index CK-MB (CK-2) Troponin I B-Natriuretic Peptide Total Protein Albumin Triglycerides Cholesterol Total LDL Cholesterol HDL Cholesterol TSH Urine Color Urine Appearance Urine pH Ur Specific [place] Urine Protein Urine Glucose (UA) Urine Ketones Urine Blood Urine Nitrite Urine Bilirubin Urine Urobilinogen Ur Leukocyte Esterase Urine WBC (Auto) Urine RBC (Auto) Urine Casts (Auto) U Epithel Cells (Auto) Urine Bacteria (Auto) COVID-19 (BETHEL) Active Medications Generic Name Dose Route Start Last Admin Trade Name Freq PRN Reason Stop Dose Admin Aspirin 81 mg 05/12/20 13:00 05/12/20 13:17 Ecotrin - PO 81 mg DAILY SERAFIN Administration Atorvastatin Calcium 80 mg 05/12/20 22:00 Lipitor - PO HS SERAFIN Ferrous Sulfate 325 mg 05/12/20 08:00 05/12/20 09:12 Feosol - PO 325 mg DAILY@0800 SERAFIN Administration Furosemide 80 mg 05/12/20 10:00 05/12/20 10:00 Lasix Injection - IVPUSH 80 mg DAILY SERAFIN Administration Heparin Sodium (Porcine) 5,000 unit 05/12/20 06:00 05/12/20 06:38 Heparin - SQ 5,000 unit TID SERAFIN Administration Piperacillin Sod/Tazobactam 50 mls @ 100 mls/hr 05/12/20 11:00 05/12/20 11:47 Sod 3.375 gm/ Dextrose IVPB 100 mls/hr Q8H-IV SERAFIN Administration Protocol Insulin Aspart 1 vial 05/12/20 07:00 05/12/20 11:45 Novolog Vial Sliding Scale - SQ 2 units ACHS SERAFIN Administration Protocol ASSESSMENT/PLAN: Pt. is a 70 y.o. F w/ PMHx. of HTN, DM, HLD, diastolic and systolic heart failure, CKD (Stage 4?), and anemia presents from [facility] for worsening dyspnea on exertion. Hospital workup so for strongly suggests decompensated heart failure. We have been called to assess for "possible breast cancer." #Rule out malignancy Recommend age appropriate screening for malignancy f/u Hepatitis panel for transaminitis(improving s/p Lasix), though I suspect this is from congestive hepatopathy We suspect the dyspnea on exertion is because of heart failure, will defer management as per cardiology and primary team, suspicion for amyloidosis c/w Abx. for gram negative bacilli growing in the blood CT Chest, Abdomen and Pelvis negative for suspicious masses or lymphadenopathy ATTENDING PHYSICIAN STATEMENT I saw and evaluated the patient. I reviewed the resident's note and discussed the case with the resident. I agree with the resident's findings and plan as documented. SUBJECTIVE: OBJECTIVE: ASSESSMENT AND PLAN:
--- NOTE | 2020-05-12 13:42 | PN ---
Teaching Attending Note Name of Resident: Dmitry Sanchez ATTENDING PHYSICIAN STATEMENT I saw and evaluated the patient. I reviewed the resident's note and discussed the case with the resident. I agree with the resident's findings and plan as documented. SUBJECTIVE: Seen and examined at bedside. Patient is grossly anasarcic. Right breast is enlarged and very firm with peau d'orange characterization of skin. States that shortness of breath has improved with the medication she is received overnight. A.m. cbc appears to have been canceled, unclear as to reason. Troponins and LFTs are downtrending. Blood cultures are positive for gram-negative bacilli in both bottles. Urine culture ordered. Echocardiogram shows infiltrative card iomyopathy suggestive of amyloidosis with grade 3 diastolic dysfunction with EF of 40%. OBJECTIVE: Last Vital Signs Temp Pulse Resp BP Pulse Ox 98.6 F 87 20 130/80 95 05/12/20 06:52 05/12/20 06:52 05/12/20 06:52 05/12/20 06:52 05/12/20 06:52 PE: Per resident note Labs/Imaging: reviewed ASSESSMENT AND PLAN: 70-year-old female with a past medical history of uncontrolled diabetes, diabetic foot ulcer, chronic osteomyelitis of right foot, diabetic neuropathy, left leg BKA, iron deficiency anemia, hypertension, hyperlipidemia, CHF, history of ESBL sent from [facility] with AMS and left arm swelling. 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 Echocardiogram shows infiltrative cardiomyopathy suggestive of amyloidosis with grade 3 diastolic dysfunction and EF of 40% Cardiology on board: Appreciate recommendations Continue Lasix IV daily Strict I's and O's, daily weights Magnesium greater than 2, potassium greater than 4 Need clarification as to amyloid work-up from cardiology #TONIA Likely cardiorenal syndrome in the setting of gross anasarca Continue diuresis Nephrology on board: Pending recommendations Hold nephrotoxic medications #Bacteremia likely secondary to UTI: blood cultures + GNR Patient has history of ESBL Pending results of urine culture Follow-up blood cultures On zosyn per ID. Will switch back to meropenem after a day or two ID consulted: Appreciate recommendations #Swollen right breast Has peau d'orange appearance, concerning for malignancy versus amyloid deposits Ultrasound right breast pending We will request re-read of CAT scan for evaluation of right breast tissue Oncology consult pending results of imaging #Elevated LFTs: Decreasing Per halfway records LFTs were normal 2 weeks ago Likely represents hepatic congestion Continue diuresis Follow-up hepatitis panels
--- NOTE | 2020-05-12 17:08 | PN ---
Physical Exam: SUBJECTIVE: No overnight events. Patient seen and examined. C/o R shoulder pain and swelling OBJECTIVE: Vital Signs Period Temp Pulse Resp BP Sys/Dobson Pulse Ox Last 24 Hr 98 F-98.6 F 77-89 16-22 121-151/74-89 95-100 GENERAL: The patient is awake, alert, and fully oriented, in no acute distress. HEAD: Normal with no signs of trauma. No ptosis. moist mucous membranes. LUNGS: crackles b/l, no wheezes, no accessory muscle use. HEART: Regular rate and rhythm, S1, S2, systolic murmur Left lower sternal border and mitral area CHEST: R breast enlarged. peau d'orange appearance ABDOMEN: Soft, nontender, normoactive bowel sounds, distended abdomen EXTREMITIES: L BKA. 3+ edema b/l. ulcer on Lateral aspect of R foot that is non- TTP. R arm 2+ edema. R shoulder pain NEUROLOGICAL: Normal speech, gait not observed. PSYCH: Normal mood, normal affect. Laboratory Results - last 24 hr 05/11/20 05/11/20 05/11/20 16:20 16:45 19:28 WBC Corrected WBC (auto) RBC Hgb Hct MCV MCH MCHC RDW Plt Count MPV Absolute Neuts (auto) Neutrophils % Lymphocytes % Monocytes % Eosinophils % Basophils % Nucleated RBC % Platelet Estimate Platelet Comment Sodium Potassium Chloride Carbon Dioxide Anion Gap BUN Creatinine Est GFR (CKD-EPI)AfAm Est GFR (CKD-EPI)NonAf POC Glucometer Random Glucose Hemoglobin A1c % Calcium Phosphorus Magnesium Total Bilirubin AST ALT Alkaline Phosphatase Troponin I 0.28 H Total Protein Albumin Triglycerides Cholesterol Total LDL Cholesterol HDL Cholesterol TSH Urine Color Dk yellow Urine Appearance Cloudy Urine pH 5.0 Ur Specific [place] 1.016 Urine Protein 3+ H Urine Glucose (UA) Negative Urine Ketones Negative Urine Blood 3+ H Urine Nitrite Negative Urine Bilirubin Negative Urine Urobilinogen 1.0 Ur Leukocyte Esterase 3+ H Urine WBC (Auto) 1325 Urine RBC (Auto) 32.6 Urine Casts (Auto) 0 U Epithel Cells (Auto) 5 Urine Bacteria (Auto) 1940 COVID-19 (BETHEL) Not detected 05/12/20 05/12/20 05/12/20 00:32 01:28 07:41 WBC Corrected WBC (auto) RBC Hgb Hct MCV MCH MCHC RDW Plt Count MPV Absolute Neuts (auto) Neutrophils % Lymphocytes % Monocytes % Eosinophils % Basophils % Nucleated RBC % Platelet Estimate Platelet Comment Sodium Potassium Chloride Carbon Dioxide Anion Gap BUN Creatinine Est GFR (CKD-EPI)AfAm Est GFR (CKD-EPI)NonAf POC Glucometer 137 188 Random Glucose Hemoglobin A1c % Calcium Phosphorus Magnesium Total Bilirubin AST ALT Alkaline Phosphatase Troponin I 0.23 H Total Protein Albumin Triglycerides Cholesterol Total LDL Cholesterol HDL Cholesterol TSH Urine Color Urine Appearance Urine pH Ur Specific [place] Urine Protein Urine Glucose (UA) Urine Ketones Urine Blood Urine Nitrite Urine Bilirubin Urine Urobilinogen Ur Leukocyte Esterase Urine WBC (Auto) Urine RBC (Auto) Urine Casts (Auto) U Epithel Cells (Auto) Urine Bacteria (Auto) COVID-19 (BETHEL) 05/12/20 05/12/20 05/12/20 08:00 08:00 08:00 WBC Cancelled Corrected WBC (auto) Cancelled RBC Cancelled Hgb Cancelled Hct Cancelled MCV Cancelled MCH Cancelled MCHC Cancelled RDW Cancelled Plt Count Cancelled MPV Cancelled Absolute Neuts (auto) Cancelled Neutrophils % Cancelled Lymphocytes % Cancelled Monocytes % Cancelled Eosinophils % Cancelled Basophils % Cancelled Nucleated RBC % Cancelled Platelet Estimate Cancelled Platelet Comment Cancelled Sodium 139 Potassium 4.1 Chloride 104 Carbon Dioxide 28 Anion Gap 7 L BUN 39.0 H Creatinine 2.0 H Est GFR (CKD-EPI)AfAm 28.59 Est GFR (CKD-EPI)NonAf 24.67 POC Glucometer Random Glucose 180 H Hemoglobin A1c % 8.6 H Calcium 9.0 Phosphorus 4.0 Magnesium 2.3 Total Bilirubin 1.3 H AST 320 H ALT 539 H Alkaline Phosphatase 296 H Troponin I 0.16 H Total Protein 7.4 Albumin 2.5 L Triglycerides 79 Cholesterol 114 Total LDL Cholesterol 39 HDL Cholesterol 43 TSH 2.34 Urine Color Urine Appearance Urine pH Ur Specific [place] Urine Protein Urine Glucose (UA) Urine Ketones Urine Blood Urine Nitrite Urine Bilirubin Urine Urobilinogen Ur Leukocyte Esterase Urine WBC (Auto) Urine RBC (Auto) Urine Casts (Auto) U Epithel Cells (Auto) Urine Bacteria (Auto) COVID-19 (BETHEL) 05/12/20 11:45 WBC Corrected WBC (auto) RBC Hgb Hct MCV MCH MCHC RDW Plt Count MPV Absolute Neuts (auto) Neutrophils % Lymphocytes % Monocytes % Eosinophils % Basophils % Nucleated RBC % Platelet Estimate Platelet Comment Sodium Potassium Chloride Carbon Dioxide Anion Gap BUN Creatinine Est GFR (CKD-EPI)AfAm Est GFR (CKD-EPI)NonAf POC Glucometer 186 Random Glucose Hemoglobin A1c % Calcium Phosphorus Magnesium Total Bilirubin AST ALT Alkaline Phosphatase Troponin I Total Protein Albumin Triglycerides Cholesterol Total LDL Cholesterol HDL Cholesterol TSH Urine Color Urine Appearance Urine pH Ur Specific [place] Urine Protein Urine Glucose (UA) Urine Ketones Urine Blood Urine Nitrite Urine Bilirubin Urine Urobilinogen Ur Leukocyte Esterase Urine WBC (Auto) Urine RBC (Auto) Urine Casts (Auto) U Epithel Cells (Auto) Urine Bacteria (Auto) COVID-19 (BETHEL) Active Medications Generic Name Dose Route Start Last Admin Trade Name Freq PRN Reason Stop Dose Admin Aspirin 81 mg 05/12/20 13:00 05/12/20 13:17 Ecotrin - PO 81 mg DAILY SERAFIN Administration Atorvastatin Calcium 80 mg 05/12/20 22:00 Lipitor - PO HS SERAFIN Ferrous Sulfate 325 mg 05/12/20 08:00 05/12/20 09:12 Feosol - PO 325 mg DAILY@0800 SERAFIN Administration Furosemide 80 mg 05/12/20 10:00 05/12/20 10:00 Lasix Injection - IVPUSH 80 mg DAILY SERAFIN Administration Heparin Sodium (Porcine) 5,000 unit 05/12/20 06:00 05/12/20 14:36 Heparin - SQ Not Given TID SERAFIN Piperacillin Sod/Tazobactam 50 mls @ 100 mls/hr 05/12/20 11:00 05/12/20 11:47 Sod 3.375 gm/ Dextrose IVPB 100 mls/hr Q8H-IV SERAFIN Administration Protocol Insulin Aspart 1 vial 05/12/20 07:00 05/12/20 11:45 Novolog Vial Sliding Scale - SQ 2 units ACHS SERAFIN Administration Protocol ASSESSMENT/PLAN: 70 YO F PMH HTN, HLD, NIDDM, osteomyeitis on R foot ESBL infn, Left BKA, osteoarthritis, iron deficiency anemia, diabetic neuropathy/charcot joint, and CHF sent from [facility] [address] after desaturation to 78% on Room air. P/w AMS, worsening SOB, and edema of b/l LE, R arm, and abdomen. Found to have diffuse anasarca, peau d'orange right breast, and presumed UTI with bacteremia #Acute on chronic CHF -ECHO: moderate concentric Left ventricular hypertrophy. LV systolic function moderately reduced. 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 Diastolic dysfunction, Grade III (restrictive pattern), consistent with markedly increased LA pressure. The R ventricular systolic function is mildly reduced. RV is mildly dilated. RA moderately dilated. Mild pulmonary HTN. Moderate tricuspid regurg. Ascites present. EF 40% -c/w lasix 80 mg DAILY -keep K+ >4, Mg >2 -f/u on daily wts, Is & Os. -cardiology c/s appreciated. Amyloid w/u recommended #TONIA -BUN/Cr 34.3/2 -hold losartan -f/u renal c/s #Bacteremia 2/2 UT -UA: 3+ protein, 3+ blood, 32.6 RBCs, leukoesterase 3+, 1325 WBCs, 1940 bacteria, 5 epithelial cells -WBC: 14.6 -blood cx: gram negative bacilli -start zosyn as per ID #Edematous R breast -peau d'orange. Suspicious for malignancy -US R breast -re-read of chest CT #Transaminitis -LFTs WNL 2 wks ago according to notes from [facility] -f/u hepatitis serology -likely 2/2 hepatic congestion #FEN no IVF monitor lytes diabetic diet #DISPO maintain tele Visit type - Emergency Visit Emergency Visit: Yes ED Registration Date: 05/11/20 Care time: The patient presented to the Emergency Department on the above date and was hospitalized for further evaluation of their emergent condition. - New Patient This patient is new to me today: No - Critical Care Critical Care patient: No - Medication Review Med list reviewed for High Risk Meds patients 65 and older: Yes ATTENDING PHYSICIAN STATEMENT I saw and evaluated the patient. I reviewed the resident's note and discussed the case with the resident. I agree with the resident's findings and plan as documented. SUBJECTIVE: OBJECTIVE: ASSESSMENT AND PLAN:
--- NOTE | 2020-05-12 17:51 | CON.NEP ---
Consult Consult Specialty:: Nephrology Referred by:: Medicine Reason for Consultation:: TONIA vs CKD - History of Present Illness Chief Complaint: Arm swelling History of Present Illness: This is a 70 year old woman with history of CHF, DM type 2, chronic osteomylitis, BKA, hypertension, hyperlipidiemia who presented from the ID with arm swelling and found to have anasarca, CHF and gram negative bacteremia. Seen and examined at the bedside. She reports feeling more swollen on her right side. Denies any chest pain, abd pain, fever, chills, N/V/D. Making urine. Tolerating her meals. Does have SOB and CHOW. Denies any NSAID use. No diarrhea or vomiting. No flank pain. No dysuria or gross hematuria. - History Source History Provided By: Patient Limitations to Obtaining History: No Limitations - Past Medical History Cardio/Vascular: Yes: HTN, Hyperlipdemia ...: No - Smoking History Smoking history: Never smoked Have you smoked in the past 12 months: No Home Medications - Allergies Allergies/Adverse Reactions: Allergies Allergy/AdvReac Type Severity Reaction Status Date / Time No Known Allergies Allergy Verified 05/11/20 13:38 - Home Medications Home Medications: Ambulatory Orders Aspirin 81 mg PO DAILY 05/11/20 Atorvastatin Ca [Lipitor] 80 mg PO HS 05/11/20 Ferrous Sulfate 325 mg PO TID 05/11/20 Furosemide [Lasix -] 40 mg PO BID 05/11/20 Gabapentin 100 mg PO QID 05/11/20 Gabapentin 300 mg PO HS 05/11/20 Insulin Glargine,Hum.rec.anlog [Basaglar Kwikpen U-100] 15 unit SQ 05/11/20 Losartan Potassium 25 mg PO DAILY 05/11/20 Metoprolol Succinate 50 mg PO DAILY 05/11/20 Sennosides [Senno] 17.2 mg PO HS 05/11/20 Family Medical History Family History: Unremarkable Review of Systems - Review of Systems Constitutional: reports: Lethargy Eyes: reports: No Symptoms HENT: reports: No Symptoms Neck: reports: No Symptoms Cardiovascular: reports: Edema, Shortness of Breath. denies: Chest Pain, Palpitations Respiratory: reports: SOB, SOB on Exertion. denies: Hemoptysis, Orthopnea, PND Gastrointestinal: reports: No Symptoms Genitourinary: reports: No Symptoms Musculoskeletal: reports: No Symptoms Integumentary: reports: No Symptoms Neurological: reports: No Symptoms Endocrine: reports: No Symptoms Nephrology Consult - Height Height: 5 ft 5 in - Weight Weight: 113.398 kg - BMI Body Mass Index (BMI): 41.5 - Lab Results CBC,BMP: CBC, BMP 05/12/20 08:00 05/12/20 08:00 Anion Gap: Anion Gap Anion Gap 7 MMOL/L (8-16) L 05/12/20 08:00 - Imaging Chest X-ray: Report Reviewed Cat Scan: Report Reviewed Ultrasound: Report Reviewed - Physical Examination Vital Signs: Vital Signs Temperature 98 F 05/12/20 15:46 Pulse Rate 77 05/12/20 15:46 Respiratory Rate 18 05/12/20 15:46 Blood Pressure 121/74 05/12/20 15:46 O2 Sat by Pulse Oximetry (%) 99 05/12/20 15:46 Constitutional: Yes: Well Nourished, No Distress, Calm Eyes: Yes: Conjunctiva Clear HENT: Yes: Atraumatic Neck: Yes: Supple Cardiovascular: Yes: Regular Rate and Rhythm Respiratory: Yes: Regular, Diminished, On Nasal O2, SOB, SOB on Exertion. No: Rales, Rhonchi Gastrointestinal: Yes: Soft, Abdomen, Obese. No: Tenderness Renal/: No: Bladder Distention, CVA Tenderness - Left, CVA Tenderness - Right Edema: LUE: 3+, RUE: 3+, LLE: 3+, RLE: 3+ Neurological: Yes: Alert, Oriented Assessment/Plan 70 year old woman with history of CHF, DM type 2, chronic osteomylitis, BKA, hypertension, hyperlipidiemia who presented from the ID with arm swelling and found to have anasarca, CHF and gram negative bacteremia. 1. Acute kidney injury 2. CHF/Anasarca 3. Gram negative Bacteremia/UTI 4. Hypertension 5. Hyperlipidemia Unclear what her baseline renal function is. Will attempt to obtain baseline la bs from ID. Agree with IV diuretics for now for management of edema. Check urine studies, especially protein to creatinine ration to r/o nephrotic syndrome as contributor to edema. Low sodium diet and daily weights. Continue empiric antibiotics pending final cultures ID follow up Would hold Losartan for now given suspected TONIA. BP is adequately controlled. Thank you Joaquín Berry DO
[2020-05-12] MEDS ORDERED: PIPERACILLIN/TAZOBACTAM 3.375 GM VIAL IVPB ONE (18:39)
[2020-05-12] MEDS ORDERED: DEXTROSE 5%-WATER - 50 ML IVPB ONE (18:39)
--- NOTE | 2020-05-12 19:49 | PN ---
Teaching Attending Note Name of Resident: Moy Franco ATTENDING PHYSICIAN STATEMENT I saw and evaluated the patient. I reviewed the resident's note and discussed the case with the resident. I agree with the resident's findings and plan as documented. ASSESSMENT AND PLAN: 70 F with a PMH of Uncontrolled DM, Diabetic foot ulcer on R. foot, Chronic osteomyelitis of right foot, Diabetic neuropathy, Left leg below knee amputation, OA, Iron deficiency anemia, HLD, HTN, Charcot's joint, ESBL resistance and HF, was sent from [facility] for altered mental status swelling of R.arm and face. #CHF exacerbation #possible Pneumonia/ UTI - CXR: Cardiomegaly, fullness of the chirag and congestive changes with right pleural fluid. superimposed infiltrates cannot be excluded - u/s Upper R extremity and R. Lower extremity: No DVT - CT c/a/p non con --anasarca/effusions/ascites/calcified fibroids - WBC 14.6 (4.2- 04/28/20-detention), BUN/Crea 34.3/2.0 (32/1.40) - AST: 909(23), ALT 748(35), AKLP 351(268) - Trop 0.25, BNP 64555 Being diuresed cultures pending ID/cardiology f/u We have been consulted for rt. breast edema On exam -- Left breast inverted nipple with no masses/adenopathy Right breast -- no discrete masses/ adenopathy. right breast edema Suspect rt. 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
[2020-05-12] MEDS ORDERED: VANCOMYCIN HCL 1,500 MG in DEXTROSE 5%-WATER - 500 ML IVPB SCH (20:00)
[2020-05-12] MEDS: ATORVASTATIN CA 80 MG TABLET (FP) PO SCH (22:36)
[2020-05-13] MEDS ORDERED: DEXTROSE 5%-WATER - 50 ML IVPB ONE ×3 (01:00→17:07)
[2020-05-13] MEDS ORDERED: PIPERACILLIN/TAZOBACTAM 3.375 GM VIAL IVPB ONE ×2 (01:00→09:22)
[2020-05-13] MEDS: PIPERACILLIN/TAZOB 3.375 GM 3.375 GM in DEXTROSE 5%-WATER - 50 ML IVPB SCH ×2 (01:14→10:52)
[2020-05-13] MEDS: HEPARIN NA (PORCINE) 5,000 UNITS/ML 1ML VIAL SQ SCH ×3 (06:54→21:23)
[2020-05-13] MEDS: INSULIN SLIDING SCALE (NOVOLOG) 1 VIAL SQ SCH ×4 (06:55→21:23)
--- NOTE | 2020-05-13 08:55 | PN ---
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, Physician - Current Medication List Current Medications: Active Medications Aspirin (Ecotrin -) 81 mg PO DAILY [facility] Last Admin: 05/12/20 13:17 Dose: 81 mg Documented by: Atorvastatin Calcium (Lipitor -) 80 mg PO HS [facility] Last Admin: 05/12/20 22:36 Dose: 80 mg Documented by: Ferrous Sulfate (Feosol -) 325 mg PO DAILY@0800 [facility] Last Admin: 05/12/20 09:12 Dose: 325 mg Documented by: Furosemide (Lasix Injection -) 80 mg IVPUSH DAILY [facility] Last Admin: 05/12/20 10:00 Dose: 80 mg Documented by: Heparin Sodium (Porcine) (Heparin -) 5,000 unit SQ TID [facility] Last Admin: 05/13/20 06:54 Dose: 5,000 unit Documented by: Piperacillin Sod/Tazobactam (Sod 3.375 gm/ Dextrose) 50 mls @ 100 mls/hr IVPB Q8H-IV [facility]; Protocol Last Admin: 05/13/20 01:14 Dose: 100 mls/hr Documented by: Insulin Aspart (Novolog Vial Sliding Scale -) 1 vial SQ ACHS [facility]; Protocol Last Admin: 05/13/20 06:55 Dose: 2 units Documented by: - Objective Vital Signs: Vital Signs Temperature 98.4 F 05/13/20 06:00 Pulse Rate 74 05/13/20 06:00 Respiratory Rate 20 05/13/20 06:00 Blood Pressure 144/72 05/13/20 06:00 O2 Sat by Pulse Oximetry (%) 95 05/13/20 06:00 Cardiovascular: Yes: S1, S2 Respiratory: Yes: Diminished, On Nasal O2 Gastrointestinal: Yes: Normal Bowel Sounds, Soft, Ascites, Distention Labs: CBC, BMP 05/12/20 08:00 05/12/20 08:00 Problem List - Problems (1) Bacteremia Assessment/Plan: IV ABX ID ON CASE PULM CONSULT Microbiology 05/11/20 16:45 Blood - Peripheral Venous Blood Culture - Preliminary Lactose Fermenting Neg Bacilli Lactose Fermenting Neg Bacilli#2 05/11/20 16:45 Blood - Peripheral Venous Blood Culture - Preliminary Lactose Fermenting Neg Bacilli Lactose Fermenting Neg Bacilli#2 Code(s): R78.81 - BACTEREMIA (2) Acute on chronic renal failure Assessment/Plan: MONITOR ON CURRENT MEDS RENAL ON CASE US Code(s): N17.9 - ACUTE KIDNEY FAILURE, UNSPECIFIED; N18.9 - CHRONIC KIDNEY DISEASE, UNSPECIFIED Qualifiers: Acute renal failure type: unspecified Chronic kidney disease stage: unspecified stage Qualified Code(s): N17.9 - Acute kidney failure, unspec ified; N18.9 - Chronic kidney disease, unspecified (3) CHF (congestive heart failure) Assessment/Plan: Orders 05/12/20 10:00 Furosemide Injection [Lasix Injection -] 80 mg IVPUSH DAILY EF 40% CARDIO ON BOARD FOLLOW LABS Code(s): I50.9 - HEART FAILURE, UNSPECIFIED Qualifiers: Heart failure type: unspecified Heart failure chronicity: unspecified Qualified Code(s): I50.9 - Heart failure, unspecified (4) Right lower lobe pneumonia Assessment/Plan: IV ABX PULM CONSULT Code(s): J18.9 - PNEUMONIA, UNSPECIFIED ORGANISM Qualifiers: Pneumonia type: due to unspecified organism Qualified Code(s): J18.9 - Pneumonia, unspecified organism
[2020-05-13 09:17] LABS: BASO % 0.2 % (0-2.0); EOS % 1.9 % (0-4.5); HEMATOCRIT 33.1 % (32.4-45.2); HEMOGLOBIN 10.6 GM/dL (10.7-15.3); LYMPH % 3.6 % (8-40); MCH 27.4 pg (25.7-33.7); MCHC 32.1 g/dl (32.0-36.0); MEAN CELL VOLUME 85.3 fl (80-96); MEAN PLT VOLUME 9.3 fl (7.5-11.1); NEUT % 88.3 % (42.8-82.8); PLATELET COUNT 160 K/MM3 (134-434); RBC 3.88 M/mm3 (3.60-5.2); RDW 19.8 % (11.6-15.6); WHITE BLOOD COUNT 9.7 K/mm3 (4.0-10.0)
[2020-05-13 09:38] LABS: BLOOD UREA NITROGEN 46.1 mg/dL (7-18); CALCIUM 8.9 mg/dL (8.5-10.1); CREATININE 2.1 mg/dL (0.55-1.3); MAGNESIUM 2.3 mg/dL (1.8-2.4); POTASSIUM 4.3 mmol/L (3.5-5.1)
--- NOTE | 2020-05-13 11:17 | PN ---
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, Physician History of Present Illness: still continue to c/o of pain all over echo done awaiting organism all bottles positive - Current Medication List Current Medications: Active Medications Aspirin (Ecotrin -) 81 mg PO DAILY [facility] Last Admin: 05/12/20 13:17 Dose: 81 mg Documented by: Atorvastatin Calcium (Lipitor -) 80 mg PO HS [facility] Last Admin: 05/12/20 22:36 Dose: 80 mg Documented by: Ferrous Sulfate (Feosol -) 325 mg PO DAILY@0800 [facility] Last Admin: 05/12/20 09:12 Dose: 325 mg Documented by: Furosemide (Lasix Injection -) 80 mg IVPUSH DAILY [facility] Last Admin: 05/12/20 10:00 Dose: 80 mg Documented by: Heparin Sodium (Porcine) (Heparin -) 5,000 unit SQ TID [facility] Last Admin: 05/13/20 06:54 Dose: 5,000 unit Documented by: Piperacillin Sod/Tazobactam (Sod 2.275 gm/ Dextrose) 50 mls @ 100 mls/hr IVPB Q8H-IV [facility]; Protocol Insulin Aspart (Novolog Vial Sliding Scale -) 1 vial SQ ACHS [facility]; Protocol Last Admin: 05/13/20 06:55 Dose: 2 units Documented by: - Objective Vital Signs: Vital Signs Temperature 98.4 F 05/13/20 06:00 Pulse Rate 74 05/13/20 06:00 Respiratory Rate 20 05/13/20 06:00 Blood Pressure 144/72 05/13/20 06:00 O2 Sat by Pulse Oximetry (%) 95 05/13/20 06:00 Constitutional: Yes: Calm, Mild Distress, Obese Cardiovascular: Yes: S1, S2 Respiratory: Yes: Regular, CTA Bilaterally Gastrointestinal: Yes: Normal Bowel Sounds, Soft Musculoskeletal: Yes: WNL Extremities: Yes: Other Wound/Incision: Yes: Other Neurological: Yes: Alert, Oriented Psychiatric: Yes: Alert, Oriented Labs: CBC, BMP 05/13/20 08:20 05/13/20 08:20 Assessment/Plan 70 year old woman with history of CHF, DM type 2, chronic osteomylitis, BKA, hypertension, hyperlipidiemia who presented from the [facility] with arm swelling and found to have anasarca, CHF and gram negative bacteremia. 1. Acute kidney injury 2. CHF/Anasarca 3. Gram negative Bacteremia/UTI 4. Hypertension 5. Hyperlipidemia 6 gm negative bacteremia plan await for echo results will d/w nephro repeat blood cx ordered rest as per the team
--- NOTE | 2020-05-13 11:23 | PN ---
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, Physician History of Present Illness: The patient is a 70y/o F with a PMH of Uncontrolled DM, Diabetic foot ulcer on R. foot, Chronic osteomyelitis of right foot, Diabetic neuropathy, Left leg BKA, OA, Iron deficiency anemia, HLD, HTN, Charcot's joint, ESBL resistance and CHF who presents to the ED BIBA from [facility] with AMS and arm swelling. Pt reports R arm and face swelling. The patient notes she has had sob and overall swelling (abd, legs, arms) for the past few weeks, also notes increasingly sob. denies any fever/chills, cp, n/v, diaphoresis, cough, dairhrea, dysuria. - Current Medication List Current Medications: Active Medications Aspirin (Ecotrin -) 81 mg PO DAILY [facility] Last Admin: 05/12/20 13:17 Dose: 81 mg Documented by: Atorvastatin Calcium (Lipitor -) 80 mg PO HS [facility] Last Admin: 05/12/20 22:36 Dose: 80 mg Documented by: Ferrous Sulfate (Feosol -) 325 mg PO DAILY@0800 [facility] Last Admin: 05/12/20 09:12 Dose: 325 mg Documented by: Furosemide (Lasix Injection -) 80 mg IVPUSH DAILY [facility] Last Admin: 05/12/20 10:00 Dose: 80 mg Documented by: Heparin Sodium (Porcine) (Heparin -) 5,000 unit SQ TID [facility] Last Admin: 05/13/20 06:54 Dose: 5,000 unit Documented by: Piperacillin Sod/Tazobactam (Sod 2.25 gm/ Dextrose) 50 mls @ 100 mls/hr IVPB Q8H-IV [facility]; Protocol Insulin Aspart (Novolog Vial Sliding Scale -) 1 vial SQ ACHS [facility]; Protocol Last Admin: 05/13/20 06:55 Dose: 2 units Documented by: - Objective Vital Signs: Vital Signs Temperature 98.4 F 05/13/20 06:00 Pulse Rate 74 05/13/20 06:00 Respiratory Rate 20 05/13/20 06:00 Blood Pressure 144/72 05/13/20 06:00 O2 Sat by Pulse Oximetry (%) 95 05/13/20 06:00 Eyes: Yes: WNL, Conjunctiva Clear, EOM Intact HENT: Yes: WNL, Atraumatic, Normocephalic Neck: Yes: WNL, Supple, Trachea Midline Cardiovascular: Yes: WNL, Regular Rate and Rhythm Respiratory: Yes: WNL, Regular, CTA Bilaterally Gastrointestinal: Yes: WNL, Normal Bowel Sounds Genitourinary: Yes: WNL Musculoskeletal: Yes: WNL Extremities: Yes: Amputation Edema: Yes Integumentary: Yes: WNL Neurological: Yes: WNL, Alert, Oriented ...Motor Strength: WNL Psychiatric: Yes: WNL Labs: CBC, BMP 05/13/20 08:20 05/13/20 08:20 Problem List - Problems (1) Acute on chronic renal failure Code(s): N17.9 - ACUTE KIDNEY FAILURE, UNSPECIFIED; N18.9 - CHRONIC KIDNEY DISEASE, UNSPECIFIED Qualifiers: Acute renal failure type: unspecified Chronic kidney disease stage: unspecified stage Qualified Code(s): N17.9 - Acute kidney failure, unspecified; N18.9 - Chronic kidney disease, unspecified (2) CHF (congestive heart failure) Code(s): I50.9 - HEART FAILURE, UNSPECIFIED Qualifiers: Heart failure type: unspecified Heart failure chronicity: unspecified Q ualified Code(s): I50.9 - Heart failure, unspecified (3) Elevated liver enzymes Code(s): R74.8 - ABNORMAL LEVELS OF OTHER SERUM ENZYMES (4) Right lower lobe pneumonia Code(s): J18.9 - PNEUMONIA, UNSPECIFIED ORGANISM Qualifiers: Pneumonia type: due to unspecified organism Qualified Code(s): J18.9 - Pneumonia, unspecified organism Assessment/Plan Imp; ECHO LVH , infiltrative cardiomyopathy, EKG low voltage r/o Amyloidosis Anasarca CHF TNIs DM s/p BKA Morbid obesity HLP TONIA UTI no DVT Plan; Lasix ABX Amyloidosis w/u DVT plx
[2020-05-13] MEDS: ASPIRIN COATED 81 MG TABLET.EC PO SCH (11:30)
[2020-05-13] MEDS: FERROUS SO4 325 MG TABLET (FP) PO SCH (11:30)
[2020-05-13] MEDS: FUROSEMIDE 40 MG/4 ML INJECTABLE VIAL IVPUSH SCH (11:38)
[2020-05-13] MEDS: ACETAMINOPHEN 325 MG TABLET (FP) PO PRN ×2 (11:56→21:23)
--- NOTE | 2020-05-13 12:34 | PN ---
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, Physician Chief Complaint: Acute kidney injury History of Present Illness: Seen and examined at the bedside awake and alert complains of pain in shoulders and hip no fever, chills, sob, abd pain making urine but does not feel like it is much more then normal no flank pain - Current Medication List Current Medications: Active Medications Acetaminophen (Tylenol -) 650 mg PO Q6H PRN PRN Reason: PAIN LEVEL 4 - 6 Last Admin: 05/13/20 11:56 Dose: 650 mg Documented by: Aspirin (Ecotrin -) 81 mg PO DAILY [facility] Last Admin: 05/13/20 11:30 Dose: 81 mg Documented by: Atorvastatin Calcium (Lipitor -) 80 mg PO HS [facility] Last Admin: 05/12/20 22:36 Dose: 80 mg Documented by: Ferrous Sulfate (Feosol -) 325 mg PO DAILY@0800 [facility] Last Admin: 05/13/20 11:30 Dose: 325 mg Documented by: Furosemide (Lasix Injection -) 80 mg IVPUSH DAILY [facility] Last Admin: 05/13/20 11:38 Dose: 80 mg Documented by: Heparin Sodium (Porcine) (Heparin -) 5,000 unit SQ TID [facility] Last Admin: 05/13/20 06:54 Dose: 5,000 unit Documented by: Piperacillin Sod/Tazobactam (Sod 2.25 gm/ Dextrose) 50 mls @ 100 mls/hr IVPB Q8H-IV [facility]; Protocol Insulin Aspart (Novolog Vial Sliding Scale -) 1 vial SQ ACHS [facility]; Protocol Last Admin: 05/13/20 11:59 Dose: 4 units Documented by: - Objective Vital Signs: Vital Signs Temperature 98.4 F 05/13/20 06:00 Pulse Rate 74 05/13/20 06:00 Respiratory Rate 20 05/13/20 06:00 Blood Pressure 144/72 05/13/20 06:00 O2 Sat by Pulse Oximetry (%) 95 05/13/20 06:00 Constitutional: Yes: No Distress HENT: Yes: Atraumatic Neck: Yes: Supple Cardiovascular: Yes: Regular Rate and Rhythm Respiratory: Yes: Regular, Diminished Gastrointestinal: Yes: Soft, Abdomen, Obese. No: Tenderness Edema: Yes Edema: LUE: 3+, RUE: 3+, LLE: 3+, RLE: 3+ Neurological: Yes: Alert Labs: CBC, BMP 05/13/20 08:20 05/13/20 08:20 Assessment/Plan 70 year old woman with history of CHF, DM type 2, chronic osteomylitis, BKA, hypertension, hyperlipidiemia who presented from the [place] with arm swelling and found to have anasarca, CHF and gram negative bacteremia. 1. Acute kidney injury 2. CHF/Anasarca 3. Gram negative Bacteremia/UTI 4. Hypertension 5. Hyperlipidemia Renal function is essentially stable at this time. Renal US showed no signs of obstruction. Continue IV Lasix daily, trend daily weights. If no significiant progress may need to increase to BID dosing. Urine studies are pending Low sodium diet and daily weights. Antibiotics as per ID Hold ARB for now. BP is stable. Thank you Joaquín Berry DO
--- NOTE | 2020-05-13 14:24 | PN ---
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 (short form) - Note 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: PULMONARY CONSULTATION DICTATED 05/13/20 IMP DYSPNEA ACUTE ON CHRONIC CHF GRAM NEGATIVE BACTEREMIA ANASARCA PLEURAL EFFUSION LIKELY TRANSUDATE SECONDARY TO ASCITES,CHF HTN HLD DM TONIA S/P L BKA PLAN SUPPLEMENTAL O2 LASIX ABX DAILY WTS MONITOR LYTES,RENAL FUNCTION TREND TROPONINS F/U CHEST X-RAYS DR LEAL Problem List - Problems (1) Acute on chronic renal failure Code(s): N17.9 - ACUTE KIDNEY FAILURE, UNSPECIFIED; N18.9 - CHRONIC KIDNEY DISEASE, UNSPECIFIED Qualifiers: Acute renal failure type: unspecified Chronic kidney disease stage: unspecified stage Qualified Code(s): N17.9 - Acute kidney failure, unspecified; N18.9 - Chronic kidney disease, unspecified (2) Bacteremia Code(s): R78.81 - BACTEREMIA (3) CHF (congestive heart failure) Code(s): I50.9 - HEART FAILURE, UNSPECIFIED Qualifiers: Heart failure type: unspecified Heart failure chronicity: unspecified Qualified Code(s): I50.9 - Heart failure, unspecified (4) Troponin I above reference range Code(s): R79.89 - OTHER SPECIFIED ABNORMAL FINDINGS OF BLOOD CHEMISTRY (5) Elevated liver enzymes Code(s): R74.8 - ABNORMAL LEVELS OF OTHER SERUM ENZYMES (6) Pleural effusion Code(s): J90 - PLEURAL EFFUSION, NOT ELSEWHERE CLASSIFIED
--- NOTE | 2020-05-13 16:28 | CONS ---
DATE OF CONSULTATION: 05/13/2020 PULMONARY CONSULTATION REFERRING PHYSICIAN: Pillo Yuan MD. HISTORY OF PRESENT ILLNESS: The patient is a 70-year-old female with a past medical history of poorly controlled diabetes, diabetic foot ulcer on the right, chronic osteomyelitis on the right foot, diabetic neuropathy status post left BKA, osteoarthritis, iron-deficiency anemia, hyperlipidemia, hypertension, Charcot joint, history of ESBL resistance, CHF, transferred to [facility] from secondary to altered mental status and arm swelling. Patient apparently states that for the past couple of months he has gained progressive swelling throughout her body. Patient also noted increasing shortness of breath induced with exertion which moving from the wheelchair to her bed. Denies any chest pain or palpitations. Denies any fevers, chills, nausea, vomiting, or diaphoresis. On admission, the patient was noted to have elevated BNP at level of 16,000 as well as elevated troponin. She is also noted to have elevated BUN and creatinine. Patient had CAT scan of chest performed which revealed moderate right-sided pleural effusion with compressive atelectasis. Also noted to have ascites and generalized anasarca. The patient was started on Lasix by cardiology. Of note is, blood cultures returned positive for gram lactose gram-negative bacilli. She was evaluate by ID and placed on broad-spectrum antibiotics. PAST MEDICAL HISTORY: Again includes congestive heart failure, diabetes, diabetic neuropathy, diabetic foot ulcer with chronic osteomyelitis to the right foot, history of left BKA, osteoarthritis, iron-deficiency anemia, hyperlipidemia, hypertension, Charcot joint, and ESBL resistance. REVIEW OF SYSTEMS: Mild shortness of breath, no chest pain, no palpitation, no cough, no fever, no chills, no hemoptysis. CURRENT MEDICATIONS: Include Tylenol, piperacillin, heparin, Lipitor, NovoLog, Feosol, Lasix, Ecotrin. PHYSICAL EXAMINATION: General: The patient is an elderly female, chronically ill appearing, well developed, obese, drowsy but in no acute distress. She is afebrile. Vital Signs: Blood pressure 123/72, respiratory rate 18, O2 saturation 94% on 2 L. HEENT: Normocephalic, atraumatic. Neck: Supple. Heart: Regular S1, S2. Chest: Diminished breath sounds bilaterally. Abdomen: Soft, bowel sounds positive. Extremities: Right lower extremity swelling, positive edema, status post left BKA. LABORATORY: BUN 46, creatinine 2.1, UA positive , 3+ leukocyte esterase, WBC 9.7, hemoglobin 10.6, hematocrit 33.1, with platelet count of 160,000. COVID is negative. Chest CT as noted earlier. Echo reveals moderate concentric left ventricular hypertrophy. Echo findings suggest infiltrate amyloid cardiomyopathy, ejection fraction 40%, left ventricular systolic function is moderately reduced, grade 3 diastolic dysfunction with grade 3 restriction and increased left atrial pressure and right ventricular systolic function is mildly reduced. IMPRESSION: 1. Dyspnea secondary to acute on chronic congestive heart failure. 2. Gram-negative bacteremia. 3. Anasarca. 4. Pleural effusion, likely transudate secondary to ascites, congestive heart failure. 5. Hypertension. 6. Hyperlipidemia. 7. Positive troponins. 8. Diabetes. 9. Likely acute on chronic kidney disease, kidney injury. 10. Status post left below-knee amputation. Suggest supplemental O2, continue Lasix, antibiotics, daily weights, monitor electrolytes, trend troponin, monitor renal function, followup chest x-rays. CLEMENTE LEAL M.D. [id number]
--- NOTE | 2020-05-13 16:48 | CONSULT ---
Consult Consult Specialty:: Podiatry Reason for Consultation:: Wound right foot - History of Present Illness History of Present Illness: Chronic - Past Medical History Cardio/Vascular: Yes: HTN, Hyperlipdemia ...: No - Smoking History Smoking history: Never smoked Have you smoked in the past 12 months: No Home Medications - Allergies Allergies/Adverse Reactions: Allergies Allergy/AdvReac Type Severity Reaction Status Date / Time No Known Allergies Allergy Verified 05/11/20 13:38 - Home Medications Home Medications: Ambulatory Orders Aspirin 81 mg PO DAILY 05/11/20 Atorvastatin Ca [Lipitor] 80 mg PO HS 05/11/20 Ferrous Sulfate 325 mg PO TID 05/11/20 Furosemide [Lasix -] 40 mg PO BID 05/11/20 Gabapentin 100 mg PO QID 05/11/20 Gabapentin 300 mg PO HS 05/11/20 Insulin Glargine,Hum.rec.anlog [Basaglar Kwikpen U-100] 15 unit SQ HS 05/11/20 Losartan Potassium 25 mg PO DAILY 05/11/20 Metoprolol Succinate 50 mg PO DAILY 05/11/20 Sennosides [Senno] 17.2 mg PO HS 05/11/20 Physical Exam Vital Signs: Vital Signs Temperature 98.7 F 05/13/20 14:00 Pulse Rate 91 H 05/13/20 14:00 Respiratory Rate 18 05/13/20 14:00 Blood Pressure 123/72 05/13/20 14:00 O2 Sat by Pulse Oximetry (%) 94 L 05/13/20 09:00 Wound/Incision: Yes: Other (+grade 2-3 wound right foot lateral dorsal area, - drainage, -mal odor, om?) Labs: CBC, BMP 05/13/20 08:20 05/13/20 08:20 Assessment/Plan grade 3 wound chronic right Santyl dressing change daily right foot. Reviewed xray. Nop surgical intervention at this time. Will follow till dc.
[2020-05-13] MEDS ORDERED: PIPERACILLIN/TAZOBACTAM 2.25 GM VIAL IVPB ONE (17:07)
[2020-05-13] MEDS: PIPERACILLIN/TAZOB 2.25 GM 2.25 GM in DEXTROSE 5%-WATER - 50 ML IVPB SCH (17:19)
[2020-05-13] MEDS: ATORVASTATIN CA 80 MG TABLET (FP) PO SCH (21:23)
--- NOTE | 2020-05-13 21:57 | CONSULT ---
Consult Consult Specialty:: Endocrine Referred by:: dr.Iyad Blank Reason for Consultation:: DMT2 neuropathy - History of Present Illness Chief Complaint: weakness and high sugars History of Present Illness: 70Y/O M HX of DMT2,htn,diabetic neuropathy,hld,chf,has difficulty breathing and generalized anasarca,diffuse lower and upper ext edema,dyspnea,cough and weakness high sugars,frequent episodes bs over 300mg/dl despite poor appetite she has ad dmt2 over 13 years,denies hypoglycemia,nausea or vomiting. - Past Medical History Cardio/Vascular: Yes: HTN, Hyperlipdemia ...: No - Smoking History Smoking history: Never smoked Have you smoked in the past 12 months: No Home Medications - Allergies Allergies/Adverse Reactions: Allergies Allergy/AdvReac Type Severity Reaction Status Date / Time No Known Allergies Allergy Verified 05/11/20 13:38 - Home Medications Home Medications: Ambulatory Orders Aspirin 81 mg PO DAILY 05/11/20 Atorvastatin Ca [Lipitor] 80 mg PO HS 05/11/20 Ferrous Sulfate 325 mg PO TID 05/11/20 Furosemide [Lasix -] 40 mg PO BID 05/11/20 Gabapentin 100 mg PO QID 05/11/20 Gabapentin 300 mg PO HS 05/11/20 Insulin Glargine,Hum.rec.anlog [Basaglar Kwikpen U-100] 15 unit SQ HS 05/11/20 Losartan Potassium 25 mg PO DAILY 05/11/20 Metoprolol Succinate 50 mg PO DAILY 05/11/20 Sennosides [Senno] 17.2 mg PO HS 05/11/20 Review of Systems - Review of Systems Constitutional: reports: Lethargy, Loss of Appetite, Weakness Eyes: reports: Blurred Vision HENT: reports: No Symptoms, Ringing in Ears Neck: reports: No Symptoms Respiratory: reports: Exercise Intolerance, SOB, SOB on Exertion Gastrointestinal: reports: Bloating, Constipation Genitourinary: reports: Frequency Breasts: reports: No Symptoms Reported Musculoskeletal: reports: Extremity Pain, Joint Pain, Joint Swelling, Muscle Pain, Muscle Cramps, Muscle Weakness Integumentary: reports: Erythema, Pruritis, Rash Neurological: reports: Numbness, Weakness Endocrine: reports: Unexplained Weight Gain Physical Exam Vital Signs: Vital Signs Temperature 98.8 F 05/13/20 18:00 Pulse Rate 81 05/13/20 18:00 Respiratory Rate 18 05/13/20 18:00 Blood Pressure 129/75 05/13/20 18:00 O2 Sat by Pulse Oximetry (%) 100 05/13/20 18:00 Constitutional: Yes: Well Nourished, Anxious Eyes: Yes: EOM Intact HENT: Yes: Normocephalic Neck: Yes: Supple Cardiovascular: Yes: Regular Rate and Rhythm Respiratory: Yes: SOB on Exertion Gastrointestinal: Yes: Normal Bowel Sounds Edema: LUE: 2+, RUE: 2+, LLE: 3+, RLE: 3+ Labs: CBC, BMP 05/13/20 08:20 05/13/20 08:20 Problem List - Problems (1) Acute on chronic renal failure Problems reviewed: Yes Code(s): N17.9 - ACUTE KIDNEY FAILURE, UNSPECIFIED; N18.9 - CHRONIC KIDNEY DISEASE, UNSPECIFIED Qualifiers: Acute renal failure type: unspecified Chronic kidney disease stage: unspecified stage Qualified Code(s): N17.9 - Acute kidney failure, unspecified; N18.9 - Chronic kidney disease, unspecified (2) Bacteremia Code(s): R78.81 - BACTEREMIA (3) CHF (congestive heart failure) Code(s): I50.9 - HEART FAILURE, UNSPECIFIED Qualifiers: Heart failure type: unspecified Heart failure chronicity: unspecified Qualified Code(s): I50.9 - Heart failure, unspecified (4) Elevated liver enzymes Code(s): R74.8 - ABNORMAL LEVELS OF OTHER SERUM ENZYMES (5) Pleural effusion Code(s): J90 - PLEURAL EFFUSION, NOT ELSEWHERE CLASSIFIED (6) Right lower lobe pneumonia Code(s): J18.9 - PNEUMONIA, UNSPECIFIED ORGANISM Qualifiers: Pneumonia type: due to unspecified organism Qualified Code(s): J18.9 - Pneumonia, unspecified organism (7) Troponin I above reference range Code(s): R79.89 - OTHER SPECIFIED ABNORMAL FINDINGS OF BLOOD CHEMISTRY Assessment/Plan Current Active Problems DM TYPE2 ckd diabetic nephropathy hyperglycemia Acute on chronic renal failure (Acute) Bacteremia (Acute) CHF (congestive heart failure) (Acute) Elevated liver enzymes (Acute) Pleural effusion (Acute) Right lower lobe pneumonia (Acute) Troponin I above reference range (Acute) Abnormal Lab Results 05/12/20 05/12/20 05/13/20 08:00 08:00 08:20 Hgb 10.6 L RDW 19.8 H Absolute Neuts (auto) 8.5 H Neutrophils % 88.3 H Lymphocytes % 3.6 L D BUN Creatinine Random Glucose CA 19-9 Antigen 66 H Hepatitis A Ab Total Positive H 05/13/20 08:20 Hgb RDW Absolute Neuts (auto) Neutrophils % Lymphocytes % BUN 46.1 H Creatinine 2.1 H Random Glucose 180 H CA 19-9 Antigen Hepatitis A Ab Total Laboratory Results - last 24 hr 05/12/20 05/12/20 05/12/20 01:28 08:00 08:00 WBC RBC Hgb Hct MCV MCH MCHC RDW Plt Count MPV Absolute Neuts (auto) Neutrophils % Lymphocytes % Monocytes % Eosinophils % Basophils % Nucleated RBC % Sodium Potassium Chloride Carbon Dioxide Anion Gap BUN Creatinine Est GFR (CKD-EPI)AfAm Est GFR (CKD-EPI)NonAf POC Glucometer Random Glucose Calcium Phosphorus Magnesium Carcinoembryonic Ag 3.0 CA 19-9 Antigen 66 H Hep A IgM Ab Confirm Negative Hepatitis A Ab Total Positive H Hep B Core IgM Ab Negative 05/13/20 05/13/20 05/13/20 08:20 08:20 16:01 WBC 9.7 RBC 3.88 Hgb 10.6 L Hct 33.1 MCV 85.3 MCH 27.4 MCHC 32.1 RDW 19.8 H Plt Count 160 D MPV 9.3 Absolute Neuts (auto) 8.5 H Neutrophils % 88.3 H Lymphocytes % 3.6 L D Monocytes % 6.0 Eosinophils % 1.9 D Basophils % 0.2 Nucleated RBC % 0 Sodium 141 Potassium 4.3 Chloride 106 Carbon Dioxide 26 Anion Gap 9 BUN 46.1 H Creatinine 2.1 H Est GFR (CKD-EPI)AfAm 26.96 Est GFR (CKD-EPI)NonAf 23.26 POC Glucometer 191 Random Glucose 180 H Calcium 8.9 Phosphorus 4.0 Magnesium 2.3 Carcinoembryonic Ag CA 19-9 Antigen Hep A IgM Ab Confirm Hepatitis A Ab Total Hep B Core IgM Ab 05/13/20 21:21 WBC RBC Hgb Hct MCV MCH MCHC RDW Plt Count MPV Absolute Neuts (auto) Neutrophils % Lymphocytes % Monocytes % Eosinophils % Basophils % Nucleated RBC % Sodium Potassium Chloride Carbon Dioxide Anion Gap BUN Creatinine Est GFR (CKD-EPI)AfAm Est GFR (CKD-EPI)NonAf POC Glucometer 235 Random Glucose Calcium Phosphorus Magnesium Carcinoembryonic Ag CA 19-9 Antigen Hep A IgM Ab Confirm Hepatitis A Ab Total Hep B Core IgM Ab Laboratory Tests 05/12/20 08:00 Hemoglobin A1c % 8.6 H plan: bgm achs novolog scale levemir 15 units am levemir 10 units hs diet and nutrition
[2020-05-14] MEDS ORDERED: PIPERACILLIN/TAZOBACTAM 2.25 GM VIAL IVPB ONE ×3 (00:56→17:25)
[2020-05-14] MEDS ORDERED: DEXTROSE 5%-WATER - 50 ML IVPB ONE ×3 (00:57→17:25)
[2020-05-14] MEDS: PIPERACILLIN/TAZOB 2.25 GM 2.25 GM in DEXTROSE 5%-WATER - 50 ML IVPB SCH ×3 (01:02→18:00)
[2020-05-14] MEDS: INSULIN SLIDING SCALE (NOVOLOG) 1 VIAL SQ SCH ×4 (06:19→21:27)
[2020-05-14] MEDS: HEPARIN NA (PORCINE) 5,000 UNITS/ML 1ML VIAL SQ SCH ×3 (06:19→21:26)
[2020-05-14] MEDS: INSULIN (LEVEMIR) 100 UNITS/ML UNITS SQ SCH ×3 (06:20→21:36)
[2020-05-14] MEDS: ACETAMINOPHEN 325 MG TABLET (FP) PO PRN (06:20)
[2020-05-14] MEDS: FUROSEMIDE 40 MG/4 ML INJECTABLE VIAL IVPUSH SCH (09:33)
[2020-05-14] MEDS: FERROUS SO4 325 MG TABLET (FP) PO SCH (09:33)
[2020-05-14] MEDS: ASPIRIN COATED 81 MG TABLET.EC PO SCH (09:33)
--- NOTE | 2020-05-14 10:15 | PN ---
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, Physician History of Present Illness: pulmonary alert,feeling maye,less dyspneic,o2 sat 98 on 2l nc - Current Medication List Current Medications: Active Medications Acetaminophen (Tylenol -) 650 mg PO Q6H PRN PRN Reason: PAIN LEVEL 4 - 6 Last Admin: 05/14/20 06:20 Dose: 650 mg Documented by: Aspirin (Ecotrin -) 81 mg PO DAILY [facility] Last Admin: 05/14/20 09:33 Dose: 81 mg Documented by: Atorvastatin Calcium (Lipitor -) 80 mg PO HS [facility] Last Admin: 05/13/20 21:23 Dose: 80 mg Documented by: Ferrous Sulfate (Feosol -) 325 mg PO DAILY@0800 [facility] Last Admin: 05/14/20 09:33 Dose: 325 mg Documented by: Furosemide (Lasix Injection -) 80 mg IVPUSH DAILY [facility] Last Admin: 05/14/20 09:33 Dose: 80 mg Documented by: Heparin Sodium (Porcine) (Heparin -) 5,000 unit SQ TID [facility] Last Admin: 05/14/20 06:19 Dose: 5,000 unit Documented by: Piperacillin Sod/Tazobactam (Sod 2.25 gm/ Dextrose) 50 mls @ 100 mls/hr IVPB Q8H-IV [facility]; Protocol Last Admin: 05/14/20 09:33 Dose: 100 mls/hr Documented by: Insulin Aspart (Novolog Vial Sliding Scale -) 1 vial SQ ACHS [facility]; Protocol Last Admin: 05/14/20 06:19 Dose: 5 units Documented by: Insulin Detemir (Levemir Vial) 15 units SQ AM [facility] Last Admin: 05/14/20 06:20 Dose: Not Given Documented by: Insulin Detemir (Levemir Vial) 10 units SQ HS [facility] - Objective Vital Signs: Vital Signs Temperature 98.5 F 05/14/20 06:00 Pulse Rate 82 05/14/20 06:00 Respiratory Rate 18 05/14/20 06:00 Blood Pressure 152/81 05/14/20 06:00 O2 Sat by Pulse Oximetry (%) 97 05/14/20 06:00 Constitutional: Yes: Well Nourished, Calm Eyes: Yes: WNL HENT: Yes: WNL Neck: Yes: WNL Cardiovascular: Yes: Regular Rate and Rhythm, S1, S2 Respiratory: Yes: Rales (bibasilar crackles) Gastrointestinal: Yes: Normal Bowel Sounds, Soft, Abdomen, Obese Extremities: Yes: WNL, Amputation (left bka) Edema: Yes Labs: CBC, BMP 05/13/20 08:20 Problem List - Problems (1) Acute on chronic renal failure Code(s): N17.9 - ACUTE KIDNEY FAILURE, UNSPECIFIED; N18.9 - CHRONIC KIDNEY DISEASE, UNSPECIFIED Qualifiers: Acute renal failure type: unspecified Chronic kidney disease stage: unspecified stage Qualified Code(s): N17.9 - Acute kidney failure, unsp ecified; N18.9 - Chronic kidney disease, unspecified (2) Bacteremia Code(s): R78.81 - BACTEREMIA (3) CHF (congestive heart failure) Code(s): I50.9 - HEART FAILURE, UNSPECIFIED Qualifiers: Heart failure type: unspecified Heart failure chronicity: unspecified Qualified Code(s): I50.9 - Heart failure, unspecified (4) Troponin I above reference range Code(s): R79.89 - OTHER SPECIFIED ABNORMAL FINDINGS OF BLOOD CHEMISTRY (5) Elevated liver enzymes Code(s): R74.8 - ABNORMAL LEVELS OF OTHER SERUM ENZYMES (6) Pleural effusion Code(s): J90 - PLEURAL EFFUSION, NOT ELSEWHERE CLASSIFIED Assessment/Plan IMP DYSPNEA ACUTE ON CHRONIC CHF GRAM NEGATIVE BACTEREMIA ANASARCA PLEURAL EFFUSION LIKELY TRANSUDATE SECONDARY TO ASCITES,CHF HTN HLD DM TONIA S/P L BKA PLAN SUPPLEMENTAL O2 LASIX ABX DAILY WTS MONITOR LYTES,RENAL FUNCTION TREND TROPONINS F/U CHEST X-RAYS DR LEAL Problem List - Problems (1) Acute on chronic renal failure Code(s): N17.9 - ACUTE KIDNEY FAILURE, UNSPECIFIED; N18.9 - CHRONIC KIDNEY DISEASE, UNSPECIFIED Qualifiers: Acute renal failure type: unspecified Chronic kidney disease stage: unspecified stage Qualified Code(s): N17.9 - Acute kidney failure, unspecified; N18.9 - Chronic kidney disease, unspecified (2) Bacteremia Code(s): R78.81 - BACTEREMIA (3) CHF (congestive heart failure) Code(s): I50.9 - HEART FAILURE, UNSPECIFIED Qualifiers: Heart failure type: unspecified Heart failure chronicity: unspecified Qualified Code(s): I50.9 - Heart failure, unspecified (4) Troponin I above reference range Code(s): R79.89 - OTHER SPECIFIED ABNORMAL FINDINGS OF BLOOD CHEMISTRY (5) Elevated liver enzymes Code(s): R74.8 - ABNORMAL LEVELS OF OTHER SERUM ENZYMES (6) Pleural effusion Code(s): J90 - PLEURAL EFFUSION, NOT ELSEWHERE CLASSIFIED
--- NOTE | 2020-05-14 10:47 | PN ---
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, Physician History of Present Illness: still weak not feeling too well - Current Medication List Current Medications: Active Medications Acetaminophen (Tylenol -) 650 mg PO Q6H PRN PRN Reason: PAIN LEVEL 4 - 6 Last Admin: 05/14/20 06:20 Dose: 650 mg Documented by: Aspirin (Ecotrin -) 81 mg PO DAILY [facility] Last Admin: 05/14/20 09:33 Dose: 81 mg Documented by: Atorvastatin Calcium (Lipitor -) 80 mg PO [facility] Last Admin: 05/13/20 21:23 Dose: 80 mg Documented by: Ferrous Sulfate (Feosol -) 325 mg PO DAILY@0800 [facility] Last Admin: 05/14/20 09:33 Dose: 325 mg Documented by: Furosemide (Lasix Injection -) 80 mg IVPUSH DAILY [facility] Last Admin: 05/14/20 09:33 Dose: 80 mg Documented by: Heparin Sodium (Porcine) (Heparin -) 5,000 unit SQ TID [facility] Last Admin: 05/14/20 06:19 Dose: 5,000 unit Documented by: Piperacillin Sod/Tazobactam (Sod 2.25 gm/ Dextrose) 50 mls @ 100 mls/hr IVPB Q8H-IV [facility]; Protocol Last Admin: 05/14/20 09:33 Dose: 100 mls/hr Documented by: Insulin Aspart (Novolog Vial Sliding Scale -) 1 vial SQ ACHS [facility]; Protocol Last Admin: 05/14/20 06:19 Dose: 5 units Documented by: Insulin Detemir (Levemir Vial) 15 units SQ AM [facility] Last Admin: 05/14/20 06:20 Dose: Not Given Documented by: Insulin Detemir (Levemir Vial) 10 units SQ [facility] - Objective Vital Signs: Vital Signs Temperature 98.5 F 05/14/20 06:00 Pulse Rate 82 05/14/20 06:00 Respiratory Rate 18 05/14/20 06:00 Blood Pressure 152/81 05/14/20 06:00 O2 Sat by Pulse Oximetry (%) 97 05/14/20 06:00 Constitutional: Yes: Calm, Mild Distress Cardiovascular: Yes: S1, S2 Respiratory: Yes: Regular, On Nasal O2, Poor Air Entry Gastrointestinal: Yes: Normal Bowel Sounds, Soft Musculoskeletal: Yes: WNL Extremities: Yes: WNL Neurological: Yes: Alert, Oriented Psychiatric: Yes: Alert, Oriented Assessment/Plan 70 year old woman with history of CHF, DM type 2, chronic osteomylitis, BKA, hypertension, hyperlipidiemia who presented from the NH with arm swelling and found to have anasarca, CHF and gram negative bacteremia. 1. Acute kidney injury 2. CHF/Anasarca 3. Gram negative Bacteremia/UTI 4. Hypertension 5. Hyperlipidemia 6 gm negative bacteremia plan continue current mgmt await for identification of the organism continue abx repeat blood cx pending rest as per the team
[2020-05-14 10:48] LABS: BASO % 0.6 % (0-2.0); EOS % 3.6 % (0-4.5); HEMATOCRIT 29.7 % (32.4-45.2); HEMOGLOBIN 9.5 GM/dL (10.7-15.3); LYMPH % 4.5 % (8-40); MCH 27.2 pg (25.7-33.7); MCHC 31.9 g/dl (32.0-36.0); MEAN CELL VOLUME 85.2 fl (80-96); MEAN PLT VOLUME 8.8 fl (7.5-11.1); MONO % 6.7 % (3.8-10.2); NEUT % 84.6 % (42.8-82.8); PLATELET COUNT 167 K/MM3 (134-434); RBC 3.48 M/mm3 (3.60-5.2); RDW 19.8 % (11.6-15.6); WHITE BLOOD COUNT 7.6 K/mm3 (4.0-10.0)
[2020-05-14 11:16] LABS: ALBUMIN 2.2 g/dl (3.4-5.0); CALCIUM 8.5 mg/dL (8.5-10.1); MAGNESIUM 2.3 mg/dL (1.8-2.4); POTASSIUM 4.1 mmol/L (3.5-5.1); TOT PROT 7.3 g/dl (6.4-8.2)
[2020-05-14 11:17] LABS: PHOSPHOROUS 3.2 mg/dL (2.5-4.9)
[2020-05-14 11:20] LABS: BLOOD UREA NITROGEN 48.3 mg/dL (7-18)
--- NOTE | 2020-05-14 11:45 | PN ---
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, Physician - Current Medication List Current Medications: Active Medications Aspirin (Ecotrin -) 81 mg PO DAILY [facility] Last Admin: 05/14/20 09:33 Dose: 81 mg Documented by: Ferrous Sulfate (Feosol -) 325 mg PO DAILY@0800 [facility] Last Admin: 05/14/20 09:33 Dose: 325 mg Documented by: Furosemide (Lasix Injection -) 80 mg IVPUSH DAILY [facility] Last Admin: 05/14/20 09:33 Dose: 80 mg Documented by: Heparin Sodium (Porcine) (Heparin -) 5,000 unit SQ TID [facility] Last Admin: 05/14/20 06:19 Dose: 5,000 unit Documented by: Piperacillin Sod/Tazobactam (Sod 2.25 gm/ Dextrose) 50 mls @ 100 mls/hr IVPB Q8H-IV [facility]; Protocol Last Admin: 05/14/20 09:33 Dose: 100 mls/hr Documented by: Insulin Aspart (Novolog Vial Sliding Scale -) 1 vial SQ ACHS [facility]; Protocol Last Admin: 05/14/20 06:19 Dose: 5 units Documented by: Insulin Detemir (Levemir Vial) 15 units SQ AM [facility] Last Admin: 05/14/20 06:20 Dose: Not Given Documented by: Insulin Detemir (Levemir Vial) 10 units SQ HS [facility] - Objective Vital Signs: Vital Signs Temperature 98.3 F 05/14/20 10:00 Pulse Rate 72 05/14/20 10:00 Respiratory Rate 16 05/14/20 10:00 Blood Pressure 146/86 05/14/20 10:00 O2 Sat by Pulse Oximetry (%) 98 05/14/20 10:00 Cardiovascular: Yes: S1, S2 Respiratory: Yes: Diminished, On Nasal O2 Gastrointestinal: Yes: Soft, Abdomen, Obese, Ascites, Distention Integumentary: Yes: Venous Stasis Changes Labs: CBC, BMP 05/14/20 10:25 05/14/20 06:00 Problem List - Problems (1) Bacteremia Assessment/Plan: IV ABX ID ON CASE PULM CONSULT Microbiology 05/11/20 16:45 Blood - Peripheral Venous Blood Culture - Preliminary Lactose Fermenting Neg Bacilli Lactose Fermenting Neg Bacilli#2 05/11/20 16:45 Blood - Peripheral Venous Blood Culture - Preliminary Lactose Fermenting Neg Bacilli Lactose Fermenting Neg Bacilli#2 Code(s): R78.81 - BACTEREMIA (2) Acute on chronic renal failure Assessment/Plan: MONITOR ON CURRENT MEDS RENAL ON CASE US Code(s): N17.9 - ACUTE KIDNEY FAILURE, UNSPECIFIED; N18.9 - CHRONIC KIDNEY DISEASE, UNSPECIFIED Qualifiers: Acute renal failure type: unspecified Chronic kidney disease stage: unspecified stage Qualified Code(s): N17.9 - Acute kidney failure, unspecified; N18.9 - Chronic kidney disease, unspecified (3) CHF (congestive heart failure) Assessment/Plan: Orders 05/12/20 10:00 Furosemide Injection [Lasix Injection -] 80 mg IVPUSH DAILY EF 40% CARDIO ON BOARD FOLLOW LABS Code(s): I50.9 - HEART FAILURE, UNSPECIFIED Qualifiers: Heart failure type: unspecified Heart failure chronicity: unspecified Qualified Code(s): I50.9 - Heart failure, unspecified (4) Right lower lobe pneumonia Assessment/Plan: IV ABX PULM CONSULT Code(s): J18.9 - PNEUMONIA, UNSPECIFIED ORGANISM Qualifiers: Pneumonia type: due to unspecified organism Qualified Code(s): J18.9 - Pneumonia, unspecified organism (5) Elevated liver enzymes Assessment/Plan: Follow labs dc tylenol abd Lipitor gi consult Code(s): R74.8 - ABNORMAL LEVELS OF OTHER SERUM ENZYMES (6) Pleural effusion Assessment/Plan: on lasix and abx monitor Code(s): J90 - PLEURAL EFFUSION, NOT ELSEWHERE CLASSIFIED (7) Anemia Assessment/Plan: work up ordered gi consult Code(s): D64.9 - ANEMIA, UNSPECIFIED
--- NOTE | 2020-05-14 12:30 | CON.GI ---
Consult Consult Specialty:: GI Referred by:: Kwabena Reason for Consultation:: Abnormal LFTs and anemia - History of Present Illness Chief Complaint: Shortness of breath History of Present Illness: 70F admitted for evaluation of shortness of breath 7/4 and LE edema. Asked to evaluated abnormal liver chemistries today. Liver chemistries have beeb abnormal since admission. Denies abdominal pain or prior history of liver disease. Despite the abnormal liver chemistries, tylenol has been ordered for analgesia. Also called for anemia. No recent blood work for review. States that she had an endoscopy and colonoscopy during a recent admission to [facility] and that "everything was OK". Main complaint currently is left shoulder pain. No rectal bleeding or melena reported. No family history of colorectal cancer or other GI malignancy. CT scan abdomen revealed right pleural effusion, consolidation and abdominal ascites. - History Source History Provided By: Patient, Medical Record Limitations to Obtaining History: No Limitations - Past Medical History Cardio/Vascular: Yes: HTN, Hyperlipdemia ...: No Endocrine: Yes: Diabetes Mellitus (DM II) - Past Surgical History Additional Surgical History: Right BKA - Alcohol/Substance Use Hx Alcohol Use: No History of Substance Use: reports: None - Smoking History Smoking history: Never smoked Have you smoked in the past 12 months: No - Social History ADL: Support Services Place of : Other History of Recent Travel: No ([place]) Home Medications - Allergies Allergies/Adverse Reactions: Allergies Allergy/AdvReac Type Severity Reaction Status Date / Time No Known Allergies Allergy Verified 05/11/20 13:38 - Home Medications Home Medications: Ambulatory Orders Aspirin 81 mg PO DAILY 05/11/20 Atorvastatin Ca [Lipitor] 80 mg PO HS 05/11/20 Ferrous Sulfate 325 mg PO TID 05/11/20 Furosemide [Lasix -] 40 mg PO BID 05/11/20 Gabapentin 100 mg PO QID 05/11/20 Gabapentin 300 mg PO HS 05/11/20 Insulin Glargine,Hum.rec.anlog [Basaglar Kwikpen U-100] 15 unit SQ HS 05/11/20 Losartan Potassium 25 mg PO DAILY 05/11/20 Metoprolol Succinate 50 mg PO DAILY 05/11/20 Sennosides [Senno] 17.2 mg PO HS 05/11/20 Family Medical History Other Family History: Mother: : 75 Unclear cause. Father: : 59: unclear cause. 3 brothers, 1 sister: healthy. 1 son / 1 daughter: healthy. No family h/o colorectal cancer or other GI malignancy Review of Systems - Review of Systems Constitutional: denies: Unintentional Wgt. Loss Cardiovascular: reports: Edema. denies: Chest Pain Respiratory: reports: SOB, SOB on Exertion, Wheezing. denies: Cough Gastrointestinal: denies: Abdominal Pain, Constipation, Diarrhea, Melena, Rectal Bleeding, Vomiting, Vomiting Blood Musculoskeletal: reports: Joint Pain (left shoulder) Physical Exam-GI Vital Signs: Vital Signs Temperature 98.3 F 05/14/20 10:00 Pulse Rate 72 05/14/20 10:00 Respiratory Rate 16 05/14/20 10:00 Blood Pressure 146/86 05/14/20 10:00 O2 Sat by Pulse Oximetry (%) 98 05/14/20 10:00 Constitutional: Yes: Calm Eyes: No: Sclera Icterus Cardiovascular: Yes: Regular Rate and Rhythm Respiratory: Yes: Rhonchi (right lung base), Wheezes (bilaterally) Gastrointestinal Inspection: Yes: Other (abdominal wall edema). No: Scars ...Auscultate: Yes: Normoactive Bowel Sounds ...Palpate: Yes: Soft. No: Hepatomegaly, Splenomegaly, Tenderness ...Percussion: No: Fluid Wave, Tympanitic ...Rectal Exam: Yes: Other (Communication Coordinator present: No external lesions, no masses, light brown stool, guaiac negative) Extremities: Yes: Other (left BKA) Edema: Yes Edema: RLE: 1+ Neurological: Yes: Alert Labs: CBC, BMP 05/14/20 10:25 05/14/20 06:00 Problem List - Problems (1) Anemia Assessment/Plan: Normocytic guaiac negative on exam and no history of overt GI bleeding reported. Unclear what her baseline is. Likely multifactorial Advise: Hematology evaluation Obtain records from [facility] to compare blood work / recent endosco pic evaluations Code(s): D64.9 - ANEMIA, UNSPECIFIED (2) Elevated liver enzymes Assessment/Plan: Asymptomatic: Question if secondary to passive congestion with congestive hepatopathy in setting of CHF exacerbation Advise: Avoidance of hepatotoxic agents: Tylenol has been discontinued and statin was discontinued 05/12 Check screening hepatitis serologies MRCP if respiratory status permits, otherwise abdominal US for now Monitor LFTs including PT/INR Obtain records from [facility] to compare Code(s): R74.8 - ABNORMAL LEVELS OF OTHER SERUM ENZYMES
--- NOTE | 2020-05-14 15:20 | PN ---
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, Physician History of Present Illness: The patient is a 70y/o F with a PMH of Uncontrolled DM, Diabetic foot ulcer on R. foot, Chronic osteomyelitis of right foot, Diabetic neuropathy, Left leg BKA, OA, Iron deficiency anemia, HLD, HTN, Charcot's joint, ESBL resistance and CHF who presents to the ED BIBA from [facility] on [facility] with AMS and arm swelling. Pt reports R arm and face swelling. The patient notes she has had sob and overall swelling (abd, legs, arms) for the past few weeks, also notes increasingly sob. denies any fever/chills, cp, n/v, diaphoresis, cough, dairhrea, dysuria. - Current Medication List Current Medications: Active Medications Aspirin (Ecotrin -) 81 mg PO DAILY [facility] Last Admin: 05/14/20 09:33 Dose: 81 mg Documented by: Collagenase (Santyl -) 1 applic TP DAILY [facility]; Protocol Ferrous Sulfate (Feosol -) 325 mg PO DAILY@0800 [facility] Last Admin: 05/14/20 09:33 Dose: 325 mg Documented by: Furosemide (Lasix Injection -) 80 mg IVPUSH DAILY [facility] Last Admin: 05/14/20 09:33 Dose: 80 mg Documented by: Heparin Sodium (Porcine) (Heparin -) 5,000 unit SQ TID [facility] Last Admin: 05/14/20 14:03 Dose: 5,000 unit Documented by: Piperacillin Sod/Tazobactam (Sod 2.25 gm/ Dextrose) 50 mls @ 100 mls/hr IVPB Q8H-IV [facility]; Protocol Last Admin: 05/14/20 09:33 Dose: 100 mls/hr Documented by: Insulin Aspart (Novolog Vial Sliding Scale -) 1 vial SQ ACHS [facility]; Protocol Last Admin: 05/14/20 12:00 Dose: 5 units Documented by: Insulin Detemir (Levemir Vial) 15 units SQ AM [facility] Last Admin: 05/14/20 06:20 Dose: Not Given Documented by: Insulin Detemir (Levemir Vial) 10 units SQ HS [facility] - Objective Vital Signs: Vital Signs Temperature 98 F 05/14/20 14:00 Pulse Rate 87 05/14/20 14:00 Respiratory Rate 16 05/14/20 14:00 Blood Pressure 142/89 05/14/20 14:00 O2 Sat by Pulse Oximetry (%) 98 05/14/20 10:00 Eyes: Yes: WNL, Conjunctiva Clear, EOM Intact HENT: Yes: WNL, Atraumatic, Normocephalic Neck: Yes: WNL, Supple, Trachea Midline Cardiovascular: Yes: WNL, Regular Rate and Rhythm Respiratory: Yes: WNL, Regular, Diminished Gastrointestinal: Yes: WNL, Normal Bowel Sounds Genitourinary: Yes: WNL Musculoskeletal: Yes: WNL Extremities: Yes: Amputation Edema: No Integumentary: Yes: WNL Neurological: Yes: WNL, Alert, Oriented ...Motor Strength: WNL Psychiatric: Yes: WNL Labs: CBC, BMP 05/14/20 10:25 05/14/20 06:00 Problem List - Problems (1) Acute on chronic renal failure Code(s): N17.9 - ACUTE KIDNEY FAILURE, UNSPECIFIED; N18.9 - CHRONIC KIDNEY DISEASE, UNSPECIFIED Qualifiers: Acute renal failure type: unspecified Chronic kidney disease stage: unspecified stage Qualified Code(s): N17.9 - Acute kidney failure, unspecified; N18.9 - Chronic kidney disease, unspecified (2) CHF (congestive heart failure) Code(s): I50.9 - HEART FAILURE, UNSPECIFIED Qualifiers: Heart failure type: unspecified Heart failure chronicity: unspecified Qualified Code(s): I50.9 - Heart failure, unspecified (3) Elevated liver enzymes Code(s): R74.8 - ABNORMAL LEVELS OF OTHER SERUM ENZYMES (4) Right lower lobe pneumonia Code(s): J18.9 - PNEUMONIA, UNSPECIFIED ORGANISM Qualifiers: Pneumonia type: due to unspecified organism Qualified Code(s): J18.9 - Pneumonia, unspecified organism Assessment/Plan Imp; ECHO LVH , infiltrative cardiomyopathy, EKG low voltage r/o Amyloidosis Anasarca CHF TNIs DM s/p BKA Morbid obesity HLP TONIA UTI no DVT Plan; Lasix ABX Amyloidosis w/u DVT plx
[2020-05-14] MEDS ORDERED: FUROSEMIDE 40 MG/4 ML INJECTABLE VIAL IVPUSH ONE (15:48)
--- NOTE | 2020-05-14 15:53 | PN ---
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, Physician Chief Complaint: Acute kidney injury History of Present Illness: Seen and examined at the bedside awake and alert she says that she has shortness of breath off and on legs and arms remain swollen no chest pain, fever, chills, N/V/D making urine weights unchanged - Current Medication List Current Medications: Active Medications Aspirin (Ecotrin -) 81 mg PO DAILY [facility] Last Admin: 05/14/20 09:33 Dose: 81 mg Documented by: Collagenase (Santyl -) 1 applic TP DAILY [facility]; Protocol Ferrous Sulfate (Feosol -) 325 mg PO DAILY@0800 [facility] Last Admin: 05/14/20 09:33 Dose: 325 mg Documented by: Furosemide (Lasix Injection -) 80 mg IVPUSH DAILY [facility] Last Admin: 05/14/20 09:33 Dose: 80 mg Documented by: Furosemide (Lasix Injection -) 40 mg IVPUSH ONCE ONE Stop: 05/14/20 15:49 Heparin Sodium (Porcine) (Heparin -) 5,000 unit SQ TID [facility] Last Admin: 05/14/20 14:03 Dose: 5,000 unit Documented by: Piperacillin Sod/Tazobactam (Sod 2.25 gm/ Dextrose) 50 mls @ 100 mls/hr IVPB Q8H-IV [facility]; Protocol Last Admin: 05/14/20 09:33 Dose: 100 mls/hr Documented by: Insulin Aspart (Novolog Vial Sliding Scale -) 1 vial SQ ACHS [facility]; Protocol Last Admin: 05/14/20 12:00 Dose: 5 units Documented by: Insulin Detemir (Levemir Vial) 15 units SQ AM [facility] Last Admin: 05/14/20 06:20 Dose: Not Given Documented by: Insulin Detemir (Levemir Vial) 10 units SQ HS [facility] - Objective Vital Signs: Vital Signs Temperature 98 F 05/14/20 14:00 Pulse Rate 87 05/14/20 14:00 Respiratory Rate 16 05/14/20 14:00 Blood Pressure 142/89 05/14/20 14:00 O2 Sat by Pulse Oximetry (%) 98 05/14/20 10:00 Constitutional: Yes: No Distress, Calm HENT: Yes: Atraumatic Neck: Yes: Supple Cardiovascular: Yes: Regular Rate and Rhythm Respiratory: Yes: Diminished, On Nasal O2. No: Wheezes Gastrointestinal: Yes: Soft. No: Tenderness Extremities: No: Cyanosis Edema: Yes Edema: LUE: 3+, RUE: 3+, LLE: 3+, RLE: 3+ Neurological: Yes: Alert Labs: CBC, BMP 05/14/20 10:25 05/14/20 06:00 Assessment/Plan 70 year old woman with history of CHF, DM type 2, chronic osteomylitis, BKA, hypertension, hyperlipidiemia who presented from the [place] with arm swelling and found to have anasarca, CHF and gram negative bacteremia. 1. Acute kidney injury 2. CHF/Anasarca 3. Gram negative Bacteremia/UTI 4. Hypertension 5. Hyperlipidemia Renal function stable thus far. No overt electrolyte or acid/base disturbance noted. Renal US showed no signs of obstruction. Weights and edema remain unchanged, will add make Laisx BID (80mg in AM and 40mg in PM), further titration as needed Low sodium diet and daily weights. Antibiotics as per ID Hold ARB for now. BP is stable. Thank you Joaquín Berry DO
[2020-05-14] MEDS: COLLAGENASE CLOSTRIDIUM HIST. 30 GRAMS TUBE TP SCH (17:07)
[2020-05-14] MEDS ORDERED: PT OWN MED DRAWER 7, Y5N ONE (18:13)
[2020-05-15] MEDS ORDERED: DEXTROSE 5%-WATER - 50 ML IVPB ONE ×3 (01:06→16:48)
[2020-05-15] MEDS ORDERED: PIPERACILLIN/TAZOBACTAM 2.25 GM VIAL IVPB ONE ×3 (01:06→16:48)
[2020-05-15] MEDS: PIPERACILLIN/TAZOB 2.25 GM 2.25 GM in DEXTROSE 5%-WATER - 50 ML IVPB SCH ×3 (02:07→17:00)
[2020-05-15] MEDS: INSULIN (LEVEMIR) 100 UNITS/ML UNITS SQ SCH ×2 (07:05→21:04)
[2020-05-15] MEDS: HEPARIN NA (PORCINE) 5,000 UNITS/ML 1ML VIAL SQ SCH ×3 (07:05→21:04)
[2020-05-15] MEDS: INSULIN SLIDING SCALE (NOVOLOG) 1 VIAL SQ SCH ×4 (07:05→21:06)
[2020-05-15] MEDS: FUROSEMIDE 100 MG/10 ML INJECTABLE VIAL IVPB SCH (07:05)
--- NOTE | 2020-05-15 07:32 | PN ---
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, Physician History of Present Illness: PULMONARY ALERT,C/O LEFT SHOULDER PAIN,DYSPNEA IMPROVING - Current Medication List Current Medications: Active Medications Aspirin (Ecotrin -) 81 mg PO DAILY [facility] Last Admin: 05/14/20 09:33 Dose: 81 mg Documented by: Collagenase (Santyl -) 1 applic TP DAILY [facility]; Protocol Last Admin: 05/14/20 17:07 Dose: 1 applic Documented by: Ferrous Sulfate (Feosol -) 325 mg PO DAILY@0800 [facility] Last Admin: 05/14/20 09:33 Dose: 325 mg Documented by: Furosemide (Lasix Injection -) 80 mg IVPB DAILY@0600 [facility] Last Admin: 05/15/20 07:05 Dose: 80 mg Documented by: Furosemide (Lasix Injection -) 40 mg IVPUSH DAILY@1400 [facility] Heparin Sodium (Porcine) (Heparin -) 5,000 unit SQ TID [facility] Last Admin: 05/15/20 07:05 Dose: 5,000 unit Documented by: Piperacillin Sod/Tazobactam (Sod 2.25 gm/ Dextrose) 50 mls @ 100 mls/hr IVPB Q8H-IV [facility]; Protocol Last Admin: 05/15/20 02:07 Dose: 100 mls/hr Documented by: Insulin Aspart (Novolog Vial Sliding Scale -) 1 vial SQ ACHS [facility]; Protocol Last Admin: 05/15/20 07:05 Dose: 5 units Documented by: Insulin Detemir (Levemir Vial) 15 units SQ AM [facility] Last Admin: 05/15/20 07:05 Dose: Not Given Documented by: Insulin Detemir (Levemir Vial) 10 units SQ HS [facility] Last Admin: 05/14/20 21:36 Dose: Not Given Documented by: - Objective Vital Signs: Vital Signs Temperature 97.7 F 05/15/20 06:00 Pulse Rate 90 05/15/20 06:00 Respiratory Rate 20 05/15/20 06:00 Blood Pressure 176/103 H 05/15/20 06:00 O2 Sat by Pulse Oximetry (%) 93 L 05/15/20 06:00 Constitutional: Yes: Well Nourished, Calm, Obese Eyes: Yes: WNL HENT: Yes: WNL Neck: Yes: WNL Cardiovascular: Yes: Regular Rate and Rhythm, S1, S2 Respiratory: Yes: Diminished Gastrointestinal: Yes: Normal Bowel Sounds, Soft Edema: Yes (LEFT BKA) Labs: CBC, BMP Problem List - Problems (1) Acute on chronic renal failure Code(s): N17.9 - ACUTE KIDNEY FAILURE, UNSPECIFIED; N18.9 - CHRONIC KIDNEY DISEASE, UNSPECIFIED Qualifiers: Acute renal failure type: unspecified Chronic kidney disease stage: unspecified stage Qualified Code(s): N17.9 - Acute kidney failure, unspecified; N18.9 - Chronic kidney disease, unspecified (2) Bacteremia Code(s): R78.81 - BACTEREMIA (3) CHF (congestive heart failure) Code(s): I50.9 - HEART FAILURE, UNSPECIFIED Qualifiers: Heart failure type: unspecified Heart failure chronicity: unspecified Qualified Code(s): I50.9 - Heart failure, unspecified (4) Troponin I above reference range Code(s): R79.89 - OTHER SPECIFIED ABNORMAL FINDINGS OF BLOOD CHEMISTRY (5) Elevated liver enzymes Code(s): R74.8 - ABNORMAL LEVELS OF OTHER SERUM ENZYMES (6) Pleural effusion Code(s): J90 - PLEURAL EFFUSION, NOT ELSEWHERE CLASSIFIED Assessment/Plan IMP DYSPNEA IMPROVING ACUTE ON CHRONIC CHF GRAM NEGATIVE BACTEREMIA ANASARCA PLEURAL EFFUSION LIKELY TRANSUDATE SECONDARY TO ASCITES,CHF HTN HLD DM TONIA S/P L BKA ELEVATED LFTS PLAN SUPPLEMENTAL O2 LASIX ABX DAILY WTS MONITOR LYTES,RENAL FUNCTION,LFTS F/U CHEST X-RAYS DR LEAL Problem List - Problems (1) Acute on chronic renal failure Code(s): N17.9 - ACUTE KIDNEY FAILURE, UNSPECIFIED; N18.9 - CHRONIC KIDNEY DISEASE, UNSPECIFIED Qualifiers: Acute renal failure type: unspecified Chronic kidney disease stage: unspecified stage Qualified Code(s): N17.9 - Acute kidney failure, unspecified; N18.9 - Chronic kidney disease, unspecified (2) Bacteremia Code(s): R78.81 - BACTEREMIA (3) CHF (congestive heart failure) Code(s): I50.9 - HEART FAILURE, UNSPECIFIED Qualifiers: Heart failure type: unspecified Heart failure chronicity: unspecified Qualified Code(s): I50.9 - Heart failure, unspecified (4) Troponin I above reference range Code(s): R79.89 - OTHER SPECIFIED ABNORMAL FINDINGS OF BLOOD CHEMISTRY (5) Elevated liver enzymes Code(s): R74.8 - ABNORMAL LEVELS OF OTHER SERUM ENZYMES (6) Pleural effusion Code(s): J90 - PLEURAL EFFUSION, NOT ELSEWHERE CLASSIFIED
[2020-05-15] MEDS ORDERED: PT OWN MED DRAWER 7, Y5N ONE ×2 (08:03→10:01)
[2020-05-15] MEDS: FERROUS SO4 325 MG TABLET (FP) PO SCH (08:08)
[2020-05-15] MEDS: ASPIRIN COATED 81 MG TABLET.EC PO SCH (10:06)
[2020-05-15] MEDS: COLLAGENASE CLOSTRIDIUM HIST. 30 GRAMS TUBE TP SCH ×2 (10:06→10:44)
[2020-05-15 10:28] LABS: BASO % 0.4 % (0-2.0); EOS % 4.4 % (0-4.5); HEMATOCRIT 30.3 % (32.4-45.2); HEMOGLOBIN 9.8 GM/dL (10.7-15.3); LYMPH % 4.2 % (8-40); MCH 27.3 pg (25.7-33.7); MCHC 32.3 g/dl (32.0-36.0); MEAN CELL VOLUME 84.7 fl (80-96); MEAN PLT VOLUME 8.8 fl (7.5-11.1); MONO % 8.7 % (3.8-10.2); NEUT % 82.3 % (42.8-82.8); PLATELET COUNT 186 K/MM3 (134-434); RBC 3.58 M/mm3 (3.60-5.2); RDW 19.9 % (11.6-15.6); WHITE BLOOD COUNT 7.9 K/mm3 (4.0-10.0)
--- NOTE | 2020-05-15 10:46 | PN ---
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, Physician - Current Medication List Current Medications: Active Medications Aspirin (Ecotrin -) 81 mg PO DAILY [facility] Last Admin: 05/15/20 10:06 Dose: 81 mg Documented by: Collagenase (Santyl -) 1 applic TP DAILY [facility]; Protocol Last Admin: 05/15/20 10:06 Dose: 1 applic Documented by: Ferrous Sulfate (Feosol -) 325 mg PO DAILY@0800 [facility] Last Admin: 05/15/20 08:08 Dose: 325 mg Documented by: Furosemide (Lasix Injection -) 80 mg IVPB DAILY@0600 [facility] Last Admin: 05/15/20 07:05 Dose: 80 mg Documented by: Furosemide (Lasix Injection -) 40 mg IVPUSH DAILY@1400 [facility] Heparin Sodium (Porcine) (Heparin -) 5,000 unit SQ TID [facility] Last Admin: 05/15/20 07:05 Dose: 5,000 unit Documented by: Piperacillin Sod/Tazobactam (Sod 2.25 gm/ Dextrose) 50 mls @ 100 mls/hr IVPB Q8H-IV [facility]; Protocol Last Admin: 05/15/20 10:06 Dose: 100 mls/hr Documented by: Insulin Aspart (Novolog Vial Sliding Scale -) 1 vial SQ ACHS [facility]; Protocol Last Admin: 05/15/20 07:05 Dose: 5 units Documented by: Insulin Detemir (Levemir Vial) 15 units SQ AM [facility] Last Admin: 05/15/20 07:05 Dose: Not Given Documented by: Insulin Detemir (Levemir Vial) 10 units SQ HS [facility] Last Admin: 05/14/20 21:36 Dose: Not Given Documented by: - Objective Vital Signs: Vital Signs Temperature 98.4 F 05/15/20 08:20 Pulse Rate 88 05/15/20 08:20 Respiratory Rate 20 05/15/20 08:20 Blood Pressure 164/101 H 05/15/20 08:20 O2 Sat by Pulse Oximetry (%) 95 05/15/20 08:20 Cardiovascular: Yes: S1, S2 Respiratory: Yes: CTA Bilaterally, Diminished, On Nasal O2 Gastrointestinal: Yes: Normal Bowel Sounds, Soft Problem List - Problems (1) Bacteremia Assessment/Plan: IV ABX ID ON CASE PULM CONSULT Microbiology 05/14/20 09:56 Blood - Peripheral Venous Blood Culture - Preliminary NO GROWTH OBTAINED AFTER 24 HOURS, INCUBATION TO CONTINUE FOR 4 DAYS. 05/14/20 10:25 Blood - Peripheral Venous Blood Culture - Preliminary NO GROWTH OBTAINED AFTER 24 HOURS, INCUBATION TO CONTINUE FOR 4 DAYS. 05/11/20 16:45 Blood - Peripheral Venous Blood Culture - Final Citrobacter Koseri 05/11/20 16:45 Blood - Peripheral Venous Blood Culture - Preliminary Lactose Fermenting Neg Bacilli Lactose Fermenting Neg Bacilli#2 Code(s): R78.81 - BACTEREMIA (2) Acute on chronic renal failure Assessment/Plan: MONITOR ON CURRENT MEDS RENAL ON CASE US NOTED Code(s): N17.9 - ACUTE KIDNEY FAILURE, UNSPECIFIED; N18.9 - CHRONIC KIDNEY DISEASE, UNSPECIFIED Qualifiers: Acute renal failure type: unspecified Chronic kidney disease stage: unspecified stage Qualified Code(s): N17.9 - Acute kidney failure, unspecified; N18.9 - Chronic kidney disease, unspecified (3) CHF (congestive heart failure) Assessment/Plan: Orders 05/12/20 10:00 Furosemide Injection [Lasix Injection -] 80 mg IVPUSH DAILY EF 40% CARDIO ON BOARD FOLLOW LABS Code(s): I50.9 - HEART FAILURE, UNSPECIFIED Qualifiers: Heart failure type: unspecified Heart failure chronicity: unspecified Qualified Code(s): I50.9 - Heart failure, unspecified (4) Right lower lobe pneumonia Assessment/Plan: IV ABX PULM CONSULT Code(s): J18.9 - PNEUMONIA, UNSPECIFIED ORGANISM Qualifiers: Pneumonia type: due to unspecified organism Qualified Code(s): J18.9 - Pneumonia, unspecified organism (5) Elevated liver enzymes Assessment/Plan: Follow labs dc tylenol abd Lipitor gi consult appreciated Hepatic Panel Total Bilirubin 1.0 mg/dL (0.2-1) 05/14/20 06:00 AST 220 U/L (15-37) H 05/14/20 06:00 ALT 519 U/L (13-61) H 05/14/20 06:00 Alkaline Phosphatase 387 U/L (45-117) H 05/14/20 06:00 Albumin 2.2 g/dl (3.4-5.0) L 05/14/20 06:00 Code(s): R74.8 - ABNORMAL LEVELS OF OTHER SERUM ENZYMES (6) Pleural effusion Assessment/Plan: on lasix and abx monitor Code(s): J90 - PLEURAL EFFUSION, NOT ELSEWHERE CLASSIFIED (7) Anemia Assessment/Plan: work up ordered gi consult Laboratory Tests 05/13/20 05/14/20 08:20 10:25 Hgb 10.6 L 9.5 L labs pending Code(s): D64.9 - ANEMIA, UNSPECIFIED
[2020-05-15 10:52] LABS: ALBUMIN 2.3 g/dl (3.4-5.0); BILIRUBIN,DIRECT 0.4 mg/dL (0.0-0.2); BILIRUBIN,TOTAL 0.7 mg/dL (0.2-1); MAGNESIUM 2.2 mg/dL (1.8-2.4); PHOSPHOROUS 2.6 mg/dL (2.5-4.9); TOT PROT 7.5 g/dl (6.4-8.2)
[2020-05-15 10:57] LABS: ALBUMIN 2.4 g/dl (3.4-5.0); BILIRUBIN,TOTAL 0.7 mg/dL (0.2-1); BLOOD UREA NITROGEN 41.6 mg/dL (7-18); CALCIUM 8.9 mg/dL (8.5-10.1); CREATININE 1.9 mg/dL (0.55-1.3); POTASSIUM 3.7 mmol/L (3.5-5.1); TOT PROT 7.7 g/dl (6.4-8.2)
--- NOTE | 2020-05-15 11:57 | PN ---
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, Physician Chief Complaint: Acute kidney injury History of Present Illness: Seen and examined at the bedside awake and alert making more urine overnight no overt shortness of breath no chest pain tolerating meals no fever, chills, abdominal pain, N/V/D - Current Medication List Current Medications: Active Medications Acetaminophen (Tylenol -) 650 mg PO Q4H PRN PRN Reason: PAIN Aspirin (Ecotrin -) 81 mg PO DAILY [facility] Last Admin: 05/15/20 10:06 Dose: 81 mg Documented by: Collagenase (Santyl -) 1 applic TP DAILY [facility]; Protocol Last Admin: 05/15/20 10:44 Dose: Not Given Documented by: Ferrous Sulfate (Feosol -) 325 mg PO DAILY@0800 [facility] Last Admin: 05/15/20 08:08 Dose: 325 mg Documented by: Furosemide (Lasix Injection -) 80 mg IVPB DAILY@0600 [facility] Last Admin: 05/15/20 07:05 Dose: 80 mg Documented by: Furosemide (Lasix Injection -) 40 mg IVPUSH DAILY@1400 [facility] Heparin Sodium (Porcine) (Heparin -) 5,000 unit SQ TID [facility] Last Admin: 05/15/20 07:05 Dose: 5,000 unit Documented by: Piperacillin Sod/Tazobactam (Sod 2.25 gm/ Dextrose) 50 mls @ 100 mls/hr IVPB Q8H-IV [facility]; Protocol Last Admin: 05/15/20 10:06 Dose: 100 mls/hr Documented by: Insulin Aspart (Novolog Vial Sliding Scale -) 1 vial SQ ACHS [facility]; Protocol Last Admin: 05/15/20 07:05 Dose: 5 units Documented by: Insulin Detemir (Levemir Vial) 15 units SQ AM [facility] Last Admin: 05/15/20 07:05 Dose: Not Given Documented by: Insulin Detemir (Levemir Vial) 10 units SQ HS [facility] Last Admin: 05/14/20 21:36 Dose: Not Given Documented by: - Objective Vital Signs: Vital Signs Temperature 98.4 F 05/15/20 08:20 Pulse Rate 88 05/15/20 08:20 Respiratory Rate 20 05/15/20 08:20 Blood Pressure 164/101 H 05/15/20 08:20 O2 Sat by Pulse Oximetry (%) 95 05/15/20 08:20 Constitutional: Yes: No Distress, Calm HENT: Yes: Atraumatic Neck: Yes: Supple Cardiovascular: Yes: Regular Rate and Rhythm Respiratory: Yes: Regular Gastrointestinal: Yes: Soft. No: Tenderness Extremities: No: Cyanosis Edema: Yes Neurological: Yes: Alert, Oriented Labs: CBC, BMP 05/15/20 10:05 05/15/20 10:05 Assessment/Plan 70 year old woman with history of CHF, DM type 2, chronic osteomylitis, BKA, hypertension, hyperlipidiemia who presented from the [place] with arm swelling and found to have anasarca, CHF and gram negative bacteremia. 1. Acute kidney injury 2. CHF/Anasarca 3. Gram negative Bacteremia/UTI 4. Hypertension 5. Hyperlipidemia Renal function remains stable s/p increased diuretics. No overt electrolyte or acid/base disturbance noted. Renal US showed no signs of obstruction. Continue BID IV Lasix, trend weights. Antibiotics as per ID Hold ARB for now. BP is stable. Thank you Joaquín Berry DO
--- NOTE | 2020-05-15 12:19 | PN ---
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, Physician History of Present Illness: improving looks better - Current Medication List Current Medications: Active Medications Acetaminophen (Tylenol -) 650 mg PO Q4H PRN PRN Reason: PAIN Aspirin (Ecotrin -) 81 mg PO DAILY [facility] Last Admin: 05/15/20 10:06 Dose: 81 mg Documented by: Collagenase (Santyl -) 1 applic TP DAILY [facility]; Protocol Last Admin: 05/15/20 10:44 Dose: Not Given Documented by: Ferrous Sulfate (Feosol -) 325 mg PO DAILY@0800 [facility] Last Admin: 05/15/20 08:08 Dose: 325 mg Documented by: Furosemide (Lasix Injection -) 80 mg IVPB DAILY@0600 [facility] Last Admin: 05/15/20 07:05 Dose: 80 mg Documented by: Furosemide (Lasix Injection -) 40 mg IVPUSH DAILY@1400 [facility] Heparin Sodium (Porcine) (Heparin -) 5,000 unit SQ TID [facility] Last Admin: 05/15/20 07:05 Dose: 5,000 unit Documented by: Piperacillin Sod/Tazobactam (Sod 2.25 gm/ Dextrose) 50 mls @ 100 mls/hr IVPB Q8H-IV [facility]; Protocol Last Admin: 05/15/20 10:06 Dose: 100 mls/hr Documented by: Insulin Aspart (Novolog Vial Sliding Scale -) 1 vial SQ ACHS [facility]; Protocol Last Admin: 05/15/20 11:56 Dose: 5 units Documented by: Insulin Detemir (Levemir Vial) 15 units SQ AM [facility] Last Admin: 05/15/20 07:05 Dose: Not Given Documented by: Insulin Detemir (Levemir Vial) 10 units SQ HS [facility] Last Admin: 05/14/20 21:36 Dose: Not Given Documented by: - Objective Vital Signs: Vital Signs Temperature 98.4 F 05/15/20 08:20 Pulse Rate 88 05/15/20 08:20 Respiratory Rate 20 05/15/20 08:20 Blood Pressure 164/101 H 05/15/20 08:20 O2 Sat by Pulse Oximetry (%) 95 05/15/20 08:20 Constitutional: Yes: No Distress, Calm, Obese HENT: Yes: Atraumatic, Normocephalic Neck: Yes: Supple, Trachea Midline Cardiovascular: Yes: Regular Rate and Rhythm Gastrointestinal: Yes: Normal Bowel Sounds, Soft Musculoskeletal: Yes: WNL Extremities: Yes: Other Neurological: Yes: Alert, Oriented Psychiatric: Yes: Alert, Oriented Labs: CBC, BMP 05/15/20 10:05 05/15/20 10:05 Assessment/Plan 70 year old woman with history of CHF, DM type 2, chronic osteomylitis, BKA, hypertension, hyperlipidiemia who presented from the [place] with arm swelling and found to have anasarca, CHF and gram negative bacteremia. 1. Acute kidney injury 2. CHF/Anasarca 3. Gram negative Bacteremia/UTI 4. Hypertension 5. Hyperlipidemia 6 gm negative bacteremia plan continue current mgmt await for identification of the organism continue abx repeat blood negative so far rest as per the team
[2020-05-15] MEDS: ACETAMINOPHEN 325 MG TABLET (FP) PO PRN (12:32)
--- NOTE | 2020-05-15 13:45 | PN ---
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, Physician Chief Complaint: Pt A&Ox3; no chest pain or dypsnea; no extremity pain. Better able to move RUE. History of Present Illness: Ms. Figueroa is a 70y/o black woman ([facility]), with a PMH of Uncontrolled DM, Diabetic foot ulcer on R. foot, Chronic osteomyelitis of right foot, Diabetic neuropathy, Left leg BKA, morbid obesity, OA, Iron deficiency anemia, HLD, HTN, Charcot's joint, ESBL resistance and CHF who presents to the ED BIBA from [facility] on [facility] with AMS and arm swelling. Pt reports R arm and face swelling. The patient notes she has had sob and overall swelling (abd, legs, arms) for the past few weeks, also notes increasingly sob. denies any fever/chills, cp, n/v, diaphoresis, cough, dairhrea, dysuria. - Current Medication List Current Medications: Active Medications Acetaminophen (Tylenol -) 650 mg PO Q4H PRN PRN Reason: PAIN Last Admin: 05/15/20 12:32 Dose: 650 mg Documented by: Aspirin (Ecotrin -) 81 mg PO DAILY [facility] Last Admin: 05/15/20 10:06 Dose: 81 mg Documented by: Collagenase (Santyl -) 1 applic TP DAILY [facility]; Protocol Last Admin: 05/15/20 10:44 Dose: Not Given Documented by: Ferrous Sulfate (Feosol -) 325 mg PO DAILY@0800 [facility] Last Admin: 05/15/20 08:08 Dose: 325 mg Documented by: Furosemide (Lasix Injection -) 80 mg IVPB DAILY@0600 [facility] Last Admin: 05/15/20 07:05 Dose: 80 mg Documented by: Furosemide (Lasix Injection -) 40 mg IVPUSH DAILY@1400 [facility] Heparin Sodium (Porcine) (Heparin -) 5,000 unit SQ TID [facility] Last Admin: 05/15/20 07:05 Dose: 5,000 unit Documented by: Piperacillin Sod/Tazobactam (Sod 2.25 gm/ Dextrose) 50 mls @ 100 mls/hr IVPB Q8H-IV [facility]; Protocol Last Admin: 05/15/20 10:06 Dose: 100 mls/hr Documented by: Insulin Aspart (Novolog Vial Sliding Scale -) 1 vial SQ ACHS [facility]; Protocol Last Admin: 05/15/20 11:56 Dose: 5 units Documented by: Insulin Detemir (Levemir Vial) 15 units SQ [facility] Last Admin: 05/15/20 07:05 Dose: Not Given Documented by: Insulin Detemir (Levemir Vial) 10 units SQ HS [facility] Last Admin: 05/14/20 21:36 Dose: Not Given Documented by: - Objective Vital Signs: Vital Signs Temperature 98.4 F 05/15/20 08:20 Pulse Rate 88 05/15/20 08:20 Respiratory Rate 20 05/15/20 08:20 Blood Pressure 164/101 H 05/15/20 08:20 O2 Sat by Pulse Oximetry (%) 95 05/15/20 08:20 Constitutional: Yes: Calm, Obese Eyes: Yes: WNL HENT: Yes: WNL Cardiovascular: Yes: S1, S2 Labs: CBC, BMP 05/15/20 10:05 05/15/20 10:05 Assessment/Plan Imp; ECHO: moderately decreased LVEF; + LVH , infiltrative cardiomyopathy, EKG low voltage: r/o Amyloidosis Anasarca systolic CHF elevated TNIs EKG: NSR: ? old anterior ME; nonspecific T wave inferolateral changes, improving DM s/p BKA Morbid obesity HLP TONIA UTI no DVT Plan: ABX Amyloidosis w/u DVT plx F/u renal w/u (on Furosemide IV bid: 80 mg am/40 mg pm; ARB held). F/u BP serially Start ACEI (systolic CHF; DM), unless contraindications exist; f/u BUn/Cr, Is and Os, daily weight, electrolytes. F/u TNI and EKG serially F/u prior cardiac w/u for CAD
[2020-05-15] MEDS: FUROSEMIDE 40 MG/4 ML INJECTABLE VIAL IVPUSH SCH (14:48)
[2020-05-15 16:09] LABS: FREE KAPPA,SERUM 144.6 mg/L (3.3-19.4)
--- NOTE | 2020-05-15 23:51 | PN ---
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, Physician Chief Complaint: improving renal function/sugars remain elevated - Current Medication List Current Medications: Active Medications Acetaminophen (Tylenol -) 650 mg PO Q4H PRN PRN Reason: PAIN Last Admin: 05/15/20 12:32 Dose: 650 mg Documented by: Aspirin (Ecotrin -) 81 mg PO DAILY [facility] Last Admin: 05/15/20 10:06 Dose: 81 mg Documented by: Collagenase (Santyl -) 1 applic TP DAILY [facility]; Protocol Last Admin: 05/15/20 10:44 Dose: Not Given Documented by: Ferrous Sulfate (Feosol -) 325 mg PO DAILY@0800 [facility] Last Admin: 05/15/20 08:08 Dose: 325 mg Documented by: Furosemide (Lasix Injection -) 80 mg IVPB DAILY@0600 [facility] Last Admin: 05/15/20 07:05 Dose: 80 mg Documented by: Furosemide (Lasix Injection -) 40 mg IVPUSH DAILY@1400 [facility] Last Admin: 05/15/20 14:48 Dose: 40 mg Documented by: Heparin Sodium (Porcine) (Heparin -) 5,000 unit SQ TID [facility] Last Admin: 05/15/20 21:04 Dose: Not Given Documented by: Piperacillin Sod/Tazobactam (Sod 2.25 gm/ Dextrose) 50 mls @ 100 mls/hr IVPB Q8H-IV [facility]; Protocol Last Admin: 05/15/20 17:00 Dose: 100 mls/hr Documented by: Insulin Detemir (Levemir Vial) 10 units SQ HS [facility] Last Admin: 05/15/20 21:04 Dose: Not Given Documented by: Insulin Detemir (Levemir Vial) 25 units SQ AM [facility] - Objective Vital Signs: Vital Signs Temperature 98.1 F 05/15/20 22:00 Pulse Rate 96 H 05/15/20 22:00 Respiratory Rate 20 05/15/20 22:00 Blood Pressure 175/96 H 05/15/20 22:00 O2 Sat by Pulse Oximetry (%) 95 05/15/20 22:00 Constitutional: Yes: Calm Eyes: Yes: EOM Intact HENT: Yes: Normocephalic Neck: Yes: Trachea Midline Cardiovascular: Yes: Regular Rate and Rhythm Extremities: Yes: Amputation Labs: CBC, BMP 05/15/20 10:05 05/15/20 10:05 Problem List - Problems (1) Acute on chronic renal failure Problems reviewed: Yes Code(s): N17.9 - ACUTE KIDNEY FAILURE, UNSPECIFIED; N18.9 - CHRONIC KIDNEY DISEASE, UNSPECIFIED Qualifiers: Acute renal failure type: unspecified Chronic kidney disease stage: unspecified stage Qualified Code(s): N17.9 - Acute kidney failure, unspecified; N18.9 - Chronic kidney disease, unspecified (2) Bacteremia Code(s): R78.81 - BACTEREMIA (3) CHF (congestive heart failure) Code(s): I50.9 - HEART FAILURE, UNSPECIFIED Qualifiers: Heart failure type: unspecified Heart failure chronicity: unspecified Qualified Code(s): I50.9 - Heart failure, unspecified (4) Elevated liver enzymes Code(s): R74.8 - ABNORMAL LEVELS OF OTHER SERUM ENZYMES (5) Pleural effusion Code(s): J90 - PLEURAL EFFUSION, NOT ELSEWHERE CLASSIFIED (6) Right lower lobe pneumonia Code(s): J18.9 - PNEUMONIA, UNSPECIFIED ORGANISM Qualifiers: Pneumonia type: due to unspecified organism Qualified Code(s): J18.9 - Pneumonia, unspecified organism (7) Troponin I above reference range Code(s): R79.89 - OTHER SPECIFIED ABNORMAL FINDINGS OF BLOOD CHEMISTRY Assessment/Plan Current Active Problems Acute on chronic renal failure (Acute) Anemia (Acute) Bacteremia (Acute) CHF (congestive heart failure) (Acute) Elevated liver enzymes (Acute) Pleural effusion (Acute) Right lower lobe pneumonia (Acute) Troponin I above reference range (Acute) Abnormal Lab Results 05/14/20 05/15/20 05/15/20 10:25 10:05 10:05 RBC 3.58 L Hgb 9.8 L Hct 30.3 L RDW 19.9 H Lymphocytes % 4.2 L BUN 41.6 H Creatinine 1.9 H Random Glucose 240 H Direct Bilirubin AST 220 H ALT 529 H Alkaline Phosphatase 416 H Albumin 2.4 L Free [place] LC, Quant 144.6 H Free Lambda LC, Quant 79.6 H Free [place]/Lambda Ratio 1.82 H 05/15/20 10:05 RBC Hgb Hct RDW Lymphocytes % BUN Creatinine Random Glucose Direct Bilirubin 0.4 H AST 218 H ALT 536 H Alkaline Phosphatase 416 H Albumin 2.3 L Free [place] LC, Quant Free Lambda LC, Quant [place]/Lambda Ratio plan: levemir dose 25 units am levemir dose hs 10 units achs novolog scale as infection and pain signal stress elevation sugars
[2020-05-16] MEDS ORDERED: PIPERACILLIN/TAZOBACTAM 2.25 GM VIAL IVPB ONE ×3 (01:28→17:04)
[2020-05-16] MEDS ORDERED: DEXTROSE 5%-WATER - 50 ML IVPB ONE ×3 (01:29→17:04)
[2020-05-16] MEDS: PIPERACILLIN/TAZOB 2.25 GM 2.25 GM in DEXTROSE 5%-WATER - 50 ML IVPB SCH ×3 (01:30→17:06)
[2020-05-16] MEDS ORDERED: metoPROLOL SUCCINATE 25 MG TAB.SR.24H (FP) PO ONE (04:37)
[2020-05-16] MEDS: HEPARIN NA (PORCINE) 5,000 UNITS/ML 1ML VIAL SQ SCH ×3 (06:14→22:08)
[2020-05-16] MEDS: INSULIN (LEVEMIR) 100 UNITS/ML UNITS SQ SCH ×2 (06:14→22:08)
[2020-05-16] MEDS: FUROSEMIDE 100 MG/10 ML INJECTABLE VIAL IVPB SCH (06:14)
[2020-05-16] MEDS: INSULIN SLIDING SCALE (NOVOLOG) 1 VIAL SQ SCH ×4 (06:22→22:08)
[2020-05-16 07:38] LABS: BASO % 0.4 % (0-2.0); EOS % 4.1 % (0-4.5); HEMATOCRIT 30.4 % (32.4-45.2); HEMOGLOBIN 9.7 GM/dL (10.7-15.3); LYMPH % 6.7 % (8-40); MCH 27.3 pg (25.7-33.7); MEAN CELL VOLUME 85.6 fl (80-96); MEAN PLT VOLUME 9.3 fl (7.5-11.1); MONO % 9.5 % (3.8-10.2); NEUT % 79.3 % (42.8-82.8); PLATELET COUNT 181 K/MM3 (134-434); RBC 3.55 M/mm3 (3.60-5.2); RDW 19.4 % (11.6-15.6); WHITE BLOOD COUNT 8.3 K/mm3 (4.0-10.0)
[2020-05-16] MEDS: FERROUS SO4 325 MG TABLET (FP) PO SCH (08:17)
[2020-05-16 08:22] LABS: ALBUMIN 2.1 g/dl (3.4-5.0); BILIRUBIN,TOTAL 1.1 mg/dL (0.2-1); BLOOD UREA NITROGEN 40.2 mg/dL (7-18); CALCIUM 8.6 mg/dL (8.5-10.1); CREATININE 1.7 mg/dL (0.55-1.3); MAGNESIUM 2.1 mg/dL (1.8-2.4); PHOSPHOROUS 2.6 mg/dL (2.5-4.9); POTASSIUM 3.7 mmol/L (3.5-5.1); TOT PROT 7.1 g/dl (6.4-8.2)
[2020-05-16] MEDS: ASPIRIN COATED 81 MG TABLET.EC PO SCH (09:17)
[2020-05-16] MEDS: COLLAGENASE CLOSTRIDIUM HIST. 30 GRAMS TUBE TP SCH (09:18)
--- NOTE | 2020-05-16 10:48 | PN ---
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, Physician History of Present Illness: PULMONARY ALERT,COMFORTABLE,DYSPNEA IMPROVING,-CP - Current Medication List Current Medications: Active Medications Acetaminophen (Tylenol -) 650 mg PO Q4H PRN PRN Reason: PAIN Last Admin: 05/15/20 12:32 Dose: 650 mg Documented by: Aspirin (Ecotrin -) 81 mg PO DAILY [facility] Last Admin: 05/16/20 09:17 Dose: 81 mg Documented by: Collagenase (Santyl -) 1 applic TP DAILY [facility]; Protocol Last Admin: 05/16/20 09:18 Dose: Not Given Documented by: Ferrous Sulfate (Feosol -) 325 mg PO DAILY@0800 [facility] Last Admin: 05/16/20 08:17 Dose: 325 mg Documented by: Furosemide (Lasix Injection -) 80 mg IVPB DAILY@0600 [facility] Last Admin: 05/16/20 06:14 Dose: 80 mg Documented by: Furosemide (Lasix Injection -) 40 mg IVPUSH DAILY@1400 [facility] Last Admin: 05/15/20 14:48 Dose: 40 mg Documented by: Heparin Sodium (Porcine) (Heparin -) 5,000 unit SQ TID [facility] Last Admin: 05/16/20 06:14 Dose: 5,000 unit Documented by: Piperacillin Sod/Tazobactam (Sod 2.25 gm/ Dextrose) 50 mls @ 100 mls/hr IVPB Q8H-IV [facility]; Protocol Last Admin: 05/16/20 09:18 Dose: 100 mls/hr Documented by: Insulin Aspart (Novolog Vial Sliding Scale -) 1 vial SQ ACHS [facility]; Protocol Last Admin: 05/16/20 06:22 Dose: 4 units Documented by: Insulin Detemir (Levemir Vial) 10 units SQ HS [facility] Last Admin: 05/15/20 21:04 Dose: Not Given Documented by: Insulin Detemir (Levemir Vial) 25 units SQ AM [facility] Last Admin: 05/16/20 06:14 Dose: Not Given Documented by: - Objective Vital Signs: Vital Signs Temperature 98.7 F 05/16/20 10:00 Pulse Rate 89 05/16/20 10:00 Respiratory Rate 17 05/16/20 10:00 Blood Pressure 155/80 05/16/20 10:00 O2 Sat by Pulse Oximetry (%) 90 L 05/16/20 10:00 Constitutional: Yes: Well Nourished, Calm Eyes: Yes: WNL HENT: Yes: WNL Neck: Yes: WNL Cardiovascular: Yes: Regular Rate and Rhythm, S1, S2 Respiratory: Yes: Diminished Gastrointestinal: Yes: Normal Bowel Sounds, Soft, Abdomen, Obese Extremities: Yes: Amputation (LEFT BKA) Edema: Yes Labs: CBC, BMP 05/16/20 06:15 05/16/20 06:15 - ....Imaging Chest X-ray: Report Reviewed, Image Reviewed Problem List - Problems (1) Acute on chronic renal failure Code(s): N17.9 - ACUTE KIDNEY FAILURE, UNSPECIFIED; N18.9 - CHRONIC KIDNEY DISEASE, UNSPECIFIED Qualifiers: Acute renal failure type: unspecified Chronic kidney disease stage: unspec ified stage Qualified Code(s): N17.9 - Acute kidney failure, unspecified; N18.9 - Chronic kidney disease, unspecified (2) Bacteremia Code(s): R78.81 - BACTEREMIA (3) CHF (congestive heart failure) Code(s): I50.9 - HEART FAILURE, UNSPECIFIED Qualifiers: Heart failure type: unspecified Heart failure chronicity: unspecified Qualified Code(s): I50.9 - Heart failure, unspecified (4) Troponin I above reference range Code(s): R79.89 - OTHER SPECIFIED ABNORMAL FINDINGS OF BLOOD CHEMISTRY (5) Elevated liver enzymes Code(s): R74.8 - ABNORMAL LEVELS OF OTHER SERUM ENZYMES (6) Pleural effusion Code(s): J90 - PLEURAL EFFUSION, NOT ELSEWHERE CLASSIFIED Assessment/Plan IMP DYSPNEA IMPROVING ACUTE ON CHRONIC CHF GRAM NEGATIVE BACTEREMIA ANASARCA PLEURAL EFFUSION LIKELY TRANSUDATE SECONDARY TO ASCITES,CHF HTN HLD DM TONIA S/P L BKA ELEVATED LFTS PLAN SUPPLEMENTAL O2 LASIX ABX DAILY WTS MONITOR LYTES,RENAL FUNCTION,LFTS F/U CHEST X-RAYS DR LEAL Problem List - Problems (1) Acute on chronic renal failure Code(s): N17.9 - ACUTE KIDNEY FAILURE, UNSPECIFIED; N18.9 - CHRONIC KIDNEY DISEASE, UNSPECIFIED Qualifiers: Acute renal failure type: unspecified Chronic kidney disease stage: unspecified stage Qualified Code(s): N17.9 - Acute kidney failure, unspecified; N18.9 - Chronic kidney disease, unspecified (2) Bacteremia Code(s): R78.81 - BACTEREMIA (3) CHF (congestive heart failure) Code(s): I50.9 - HEART FAILURE, UNSPECIFIED Qualifiers: Heart failure type: unspecified Heart failure chronicity: unspecified Qualified Code(s): I50.9 - Heart failure, unspecified (4) Troponin I above reference range Code(s): R79.89 - OTHER SPECIFIED ABNORMAL FINDINGS OF BLOOD CHEMISTRY (5) Elevated liver enzymes Code(s): R74.8 - ABNORMAL LEVELS OF OTHER SERUM ENZYMES (6) Pleural effusion Code(s): J90 - PLEURAL EFFUSION, NOT ELSEWHERE CLASSIFIED
--- NOTE | 2020-05-16 10:56 | PN ---
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, Physician - Current Medication List Current Medications: Active Medications Acetaminophen (Tylenol -) 650 mg PO Q4H PRN PRN Reason: PAIN Last Admin: 05/15/20 12:32 Dose: 650 mg Documented by: Aspirin (Ecotrin -) 81 mg PO DAILY [facility] Last Admin: 05/16/20 09:17 Dose: 81 mg Documented by: Collagenase (Santyl -) 1 applic TP DAILY [facility]; Protocol Last Admin: 05/16/20 09:18 Dose: Not Given Documented by: Ferrous Sulfate (Feosol -) 325 mg PO DAILY@0800 [facility] Last Admin: 05/16/20 08:17 Dose: 325 mg Documented by: Furosemide (Lasix Injection -) 80 mg IVPB DAILY@0600 [facility] Last Admin: 05/16/20 06:14 Dose: 80 mg Documented by: Furosemide (Lasix Injection -) 40 mg IVPUSH DAILY@1400 [facility] Last Admin: 05/15/20 14:48 Dose: 40 mg Documented by: Heparin Sodium (Porcine) (Heparin -) 5,000 unit SQ TID [facility] Last Admin: 05/16/20 06:14 Dose: 5,000 unit Documented by: Piperacillin Sod/Tazobactam (Sod 2.25 gm/ Dextrose) 50 mls @ 100 mls/hr IVPB Q8H-IV [facility]; Protocol Last Admin: 05/16/20 09:18 Dose: 100 mls/hr Documented by: Insulin Aspart (Novolog Vial Sliding Scale -) 1 vial SQ ACHS [facility]; Protocol Last Admin: 05/16/20 06:22 Dose: 4 units Documented by: Insulin Detemir (Levemir Vial) 10 units SQ HS [facility] Last Admin: 05/15/20 21:04 Dose: Not Given Documented by: Insulin Detemir (Levemir Vial) 25 units SQ AM [facility] Last Admin: 05/16/20 06:14 Dose: Not Given Documented by: - Objective Vital Signs: Vital Signs Temperature 98.7 F 05/16/20 10:00 Pulse Rate 89 05/16/20 10:00 Respiratory Rate 17 05/16/20 10:00 Blood Pressure 155/80 05/16/20 10:00 O2 Sat by Pulse Oximetry (%) 90 L 05/16/20 10:00 Cardiovascular: Yes: S1, S2 Respiratory: Yes: Regular, CTA Bilaterally Gastrointestinal: Yes: Normal Bowel Sounds, Soft Labs: CBC, BMP 05/16/20 06:15 05/16/20 06:15 Problem List - Problems (1) Bacteremia Assessment/Plan: IV ABX ID ON CASE PULM CONSULT Microbiology 05/14/20 09:56 Blood - Peripheral Venous Blood Culture - Preliminary NO GROWTH OBTAINED AFTER 24 HOURS, INCUBATION TO CONTINUE FOR 4 DAYS. 05/14/20 10:25 Blood - Peripheral Venous Blood Culture - Preliminary NO GROWTH OBTAINED AFTER 24 HOURS, INCUBATION TO CONTINUE FOR 4 DAYS. 05/11/20 16:45 Blood - Peripheral Venous Blood Culture - Final Citrobacter Koseri 05/11/20 16:45 Blood - Peripheral Venous Blood Culture - Preliminary Lactose Fermenting Neg Bacilli Lactose Fermenting Neg Bacilli#2 Code(s): R78.81 - BACTEREMIA (2) Acute on chronic renal failure Assessment/Plan: MONITOR ON CURRENT MEDS RENAL ON CASE US NOTED Code(s): N17.9 - ACUTE KIDNEY FAILURE, UNSPECIFIED; N18.9 - CHRONIC KIDNEY DISEASE, UNSPECIFIED Qualifiers: Acute renal failure type: unspecified Chronic kidney disease stage: unspecified stage Qualified Code(s): N17.9 - Acute kidney failure, unspecified; N18.9 - Chronic kidney disease, unspecified (3) CHF (congestive heart failure) Assessment/Plan: Orders 05/12/20 10:00 Furosemide Injection [Lasix Injection -] 80 mg IVPUSH DAILY EF 40% CARDIO ON BOARD FOLLOW LABS Code(s): I50.9 - HEART FAILURE, UNSPECIFIED Qualifiers: Heart failure type: unspecified Heart failure chronicity: unspecified Qualified Code(s): I50.9 - Heart failure, unspecified (4) Right lower lobe pneumonia Assessment/Plan: IV ABX PULM CONSULT Code(s): J18.9 - PNEUMONIA, UNSPECIFIED ORGANISM Qualifiers: Pneumonia type: due to unspecified organism Qualified Code(s): J18.9 - Pn eumonia, unspecified organism (5) Elevated liver enzymes Assessment/Plan: Follow labs dc tylenol abd Lipitor gi consult appreciated Laboratory Tests 05/15/20 05/15/20 05/16/20 10:05 10:05 06:15 AST 220 H 218 H 126 H ALT 529 H 536 H 400 H Alkaline Phosphatase 416 H 416 H 376 H Code(s): R74.8 - ABNORMAL LEVELS OF OTHER SERUM ENZYMES (6) Pleural effusion Assessment/Plan: on lasix and abx monitor Code(s): J90 - PLEURAL EFFUSION, NOT ELSEWHERE CLASSIFIED (7) Anemia Assessment/Plan: work up ordered gi consult Laboratory Tests 05/13/20 05/14/20 08:20 10:25 Hgb 10.6 L 9.5 L labs pending Code(s): D64.9 - ANEMIA, UNSPECIFIED
--- NOTE | 2020-05-16 11:26 | PN ---
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, Physician Chief Complaint: Acute kidney injury History of Present Illness: Seen and examined at the bedside awake and alert no overt shortness of breath no chest pain tolerating meals no fever, chills, abdominal pain, N/V/D - Current Medication List Current Medications: Active Medications Acetaminophen (Tylenol -) 650 mg PO Q4H PRN PRN Reason: PAIN Last Admin: 05/15/20 12:32 Dose: 650 mg Documented by: Aspirin (Ecotrin -) 81 mg PO DAILY [facility] Last Admin: 05/16/20 09:17 Dose: 81 mg Documented by: Collagenase (Santyl -) 1 applic TP DAILY [facility]; Protocol Last Admin: 05/16/20 09:18 Dose: Not Given Documented by: Ferrous Sulfate (Feosol -) 325 mg PO DAILY@0800 [facility] Last Admin: 05/16/20 08:17 Dose: 325 mg Documented by: Furosemide (Lasix Injection -) 80 mg IVPB DAILY@0600 [facility] Last Admin: 05/16/20 06:14 Dose: 80 mg Documented by: Furosemide (Lasix Injection -) 40 mg IVPUSH DAILY@1400 [facility] Last Admin: 05/15/20 14:48 Dose: 40 mg Documented by: Heparin Sodium (Porcine) (Heparin -) 5,000 unit SQ TID [facility] Last Admin: 05/16/20 06:14 Dose: 5,000 unit Documented by: Piperacillin Sod/Tazobactam (Sod 2.25 gm/ Dextrose) 50 mls @ 100 mls/hr IVPB Q8H-IV [facility]; Protocol Last Admin: 05/16/20 09:18 Dose: 100 mls/hr Documented by: Insulin Aspart (Novolog Vial Sliding Scale -) 1 vial SQ ACHS [facility]; Protocol Last Admin: 05/16/20 06:22 Dose: 4 units Documented by: Insulin Detemir (Levemir Vial) 10 units SQ HS [facility] Last Admin: 05/15/20 21:04 Dose: Not Given Documented by: Insulin Detemir (Levemir Vial) 25 units SQ AM [facility] Last Admin: 05/16/20 06:14 Dose: Not Given Documented by: - Objective Vital Signs: Vital Signs Temperature 98.7 F 05/16/20 10:00 Pulse Rate 89 05/16/20 10:00 Respiratory Rate 17 05/16/20 10:00 Blood Pressure 155/80 05/16/20 10:00 O2 Sat by Pulse Oximetry (%) 90 L 05/16/20 10:00 Constitutional: Yes: No Distress HENT: Yes: Atraumatic Neck: Yes: Supple Cardiovascular: Yes: Regular Rate and Rhythm Respiratory: Yes: Diminished Gastrointestinal: Yes: Soft, Abdomen, Obese. No: Tenderness Extremities: Yes: Amputation. No: Cyanosis Edema: Yes Neurological: Yes: Alert, Oriented Labs: CBC, BMP 05/16/20 06:15 05/16/20 06:15 Assessment/Plan 70 year old woman with history of CHF, DM type 2, chronic osteomylitis, BKA, hypertension, hyperlipidiemia who presented from the [place] with arm swelling and found to have anasarca, CHF and gram negative bacteremia. 1. Acute kidney injury 2. CHF/Anasarca 3. Gram negative Bacteremia/UTI 4. Hypertension 5. Hyperlipidemia Renal function now improving with Lasix No overt electrolyte or acid/base disturbance noted. Renal US showed no signs of obstruction. Continue BID IV Lasix, trend weights. Clinically pt appears to be losing volume. Antibiotics as per ID Start amlodipine 5mg daily for additional BP control BP is stable. Thank you Joaquín Berry DO
[2020-05-16] MEDS ORDERED: ACETAMINOPHEN 325 MG TABLET (FP) ONE (11:45)
[2020-05-16] MEDS ORDERED: INSULIN SLIDING SCALE (NOVOLOG) 1 VIAL SQ ONE (11:45)
[2020-05-16] MEDS: ACETAMINOPHEN 325 MG TABLET (FP) PO PRN ×2 (11:48→22:09)
--- NOTE | 2020-05-16 12:38 | PN ---
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, Physician History of Present Illness: stable no new issues - Current Medication List Current Medications: Active Medications Acetaminophen (Tylenol -) 650 mg PO Q4H PRN PRN Reason: PAIN Last Admin: 05/16/20 11:48 Dose: 650 mg Documented by: Aspirin (Ecotrin -) 81 mg PO DAILY [facility] Last Admin: 05/16/20 09:17 Dose: 81 mg Documented by: Collagenase (Santyl -) 1 applic TP DAILY [facility]; Protocol Last Admin: 05/16/20 09:18 Dose: Not Given Documented by: Ferrous Sulfate (Feosol -) 325 mg PO DAILY@0800 [facility] Last Admin: 05/16/20 08:17 Dose: 325 mg Documented by: Furosemide (Lasix Injection -) 80 mg IVPB DAILY@0600 [facility] Last Admin: 05/16/20 06:14 Dose: 80 mg Documented by: Furosemide (Lasix Injection -) 40 mg IVPUSH DAILY@1400 [facility] Last Admin: 05/15/20 14:48 Dose: 40 mg Documented by: Heparin Sodium (Porcine) (Heparin -) 5,000 unit SQ TID [facility] Last Admin: 05/16/20 06:14 Dose: 5,000 unit Documented by: Piperacillin Sod/Tazobactam (Sod 2.25 gm/ Dextrose) 50 mls @ 100 mls/hr IVPB Q8H-IV [facility]; Protocol Last Admin: 05/16/20 09:18 Dose: 100 mls/hr Documented by: Insulin Aspart (Novolog Vial Sliding Scale -) 1 vial SQ ACHS [facility]; Protocol Last Admin: 05/16/20 11:48 Dose: 5 units Documented by: Insulin Detemir (Levemir Vial) 10 units SQ HS [facility] Last Admin: 05/15/20 21:04 Dose: Not Given Documented by: Insulin Detemir (Levemir Vial) 25 units SQ AM [facility] Last Admin: 05/16/20 06:14 Dose: Not Given Documented by: - Objective Vital Signs: Vital Signs Temperature 98.7 F 05/16/20 10:00 Pulse Rate 89 05/16/20 10:00 Respiratory Rate 17 05/16/20 10:00 Blood Pressure 155/80 05/16/20 10:00 O2 Sat by Pulse Oximetry (%) 90 L 05/16/20 10:00 Constitutional: Yes: No Distress, Calm Cardiovascular: Yes: S1, S2 Respiratory: Yes: Regular, CTA Bilaterally Gastrointestinal: Yes: Normal Bowel Sounds, Soft Musculoskeletal: Yes: WNL Extremities: Yes: WNL Neurological: Yes: Alert, Oriented Psychiatric: Yes: Alert, Oriented Labs: CBC, BMP 05/16/20 06:15 05/16/20 06:15 Assessment/Plan 70 year old woman with history of CHF, DM type 2, chronic osteomylitis, BKA, hypertension, hyperlipidiemia who presented from the [place] with arm swelling and found to have anasarca, CHF and gram negative bacteremia. 1. Acute kidney injury 2. CHF/Anasarca 3. Gram negative Bacteremia/UTI 4. Hypertension 5. Hyperlipidemia 6 gm negative bacteremia plan continue current mgmt await for identification of the organism continue abx repeat blood negative so far rest as per the team
[2020-05-16] MEDS: FUROSEMIDE 40 MG/4 ML INJECTABLE VIAL IVPUSH SCH (14:33)
[2020-05-17] MEDS ORDERED: DEXTROSE 5%-WATER - 50 ML IVPB ONE ×3 (01:24→17:14)
[2020-05-17] MEDS ORDERED: PIPERACILLIN/TAZOBACTAM 2.25 GM VIAL IVPB ONE ×3 (01:24→17:14)
[2020-05-17] MEDS: PIPERACILLIN/TAZOB 2.25 GM 2.25 GM in DEXTROSE 5%-WATER - 50 ML IVPB SCH ×3 (01:29→17:22)
[2020-05-17] MEDS: FUROSEMIDE 100 MG/10 ML INJECTABLE VIAL IVPB SCH (05:33)
[2020-05-17] MEDS: HEPARIN NA (PORCINE) 5,000 UNITS/ML 1ML VIAL SQ SCH ×3 (05:33→21:34)
[2020-05-17] MEDS: INSULIN SLIDING SCALE (NOVOLOG) 1 VIAL SQ SCH ×4 (06:07→21:32)
[2020-05-17] MEDS: INSULIN (LEVEMIR) 100 UNITS/ML UNITS SQ SCH ×2 (06:07→21:34)
[2020-05-17 06:52] LABS: BASO % 0.8 % (0-2.0); EOS % 5.7 % (0-4.5); HEMATOCRIT 31.5 % (32.4-45.2); LYMPH % 8.9 % (8-40); MCH 26.9 pg (25.7-33.7); MCHC 31.9 g/dl (32.0-36.0); MEAN CELL VOLUME 84.4 fl (80-96); MEAN PLT VOLUME 8.6 fl (7.5-11.1); MONO % 9.9 % (3.8-10.2); NEUT % 74.7 % (42.8-82.8); PLATELET COUNT 211 K/MM3 (134-434); RBC 3.73 M/mm3 (3.60-5.2); RDW 19.5 % (11.6-15.6); WHITE BLOOD COUNT 8.9 K/mm3 (4.0-10.0)
[2020-05-17 07:14] LABS: ALBUMIN 2.1 g/dl (3.4-5.0); BILIRUBIN,TOTAL 0.9 mg/dL (0.2-1); BLOOD UREA NITROGEN 35.6 mg/dL (7-18); CALCIUM 8.7 mg/dL (8.5-10.1); CREATININE 1.7 mg/dL (0.55-1.3); POTASSIUM 3.3 mmol/L (3.5-5.1); TOT PROT 7.1 g/dl (6.4-8.2)
--- NOTE | 2020-05-17 07:36 | PN ---
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, Physician - Current Medication List Current Medications: Active Medications Acetaminophen (Tylenol -) 650 mg PO Q4H PRN PRN Reason: PAIN Last Admin: 05/16/20 22:09 Dose: 650 mg Documented by: Aspirin (Ecotrin -) 81 mg PO DAILY [facility] Last Admin: 05/16/20 09:17 Dose: 81 mg Documented by: Collagenase (Santyl -) 1 applic TP DAILY [facility]; Protocol Last Admin: 05/16/20 09:18 Dose: Not Given Documented by: Ferrous Sulfate (Feosol -) 325 mg PO DAILY@0800 [facility] Last Admin: 05/16/20 08:17 Dose: 325 mg Documented by: Furosemide (Lasix Injection -) 80 mg IVPB DAILY@0600 [facility] Last Admin: 05/17/20 05:33 Dose: 80 mg Documented by: Furosemide (Lasix Injection -) 40 mg IVPUSH DAILY@1400 [facility] Last Admin: 05/16/20 14:33 Dose: 40 mg Documented by: Heparin Sodium (Porcine) (Heparin -) 5,000 unit SQ TID [facility] Last Admin: 05/17/20 05:33 Dose: 5,000 unit Documented by: Piperacillin Sod/Tazobactam (Sod 2.25 gm/ Dextrose) 50 mls @ 100 mls/hr IVPB Q8H-IV [facility]; Protocol Last Admin: 05/17/20 01:29 Dose: 100 mls/hr Documented by: Insulin Aspart (Novolog Vial Sliding Scale -) 1 vial SQ ACHS [facility]; Protocol Last Admin: 05/17/20 06:07 Dose: 4 units Documented by: Insulin Detemir (Levemir Vial) 10 units SQ HS [facility] Last Admin: 05/16/20 22:08 Dose: Not Given Documented by: Insulin Detemir (Levemir Vial) 25 units SQ AM [facility] Last Admin: 05/17/20 06:07 Dose: Not Given Documented by: - Objective Vital Signs: Vital Signs Temperature 97.9 F 05/17/20 06:00 Pulse Rate 80 05/17/20 06:00 Respiratory Rate 18 05/17/20 06:00 Blood Pressure 159/94 05/17/20 06:00 O2 Sat by Pulse Oximetry (%) 97 05/17/20 06:00 Cardiovascular: Yes: S1, S2 Respiratory: Yes: Regular, CTA Bilaterally Gastrointestinal: Yes: Normal Bowel Sounds, Soft Labs: CBC, BMP 05/17/20 06:20 05/17/20 06:20 Problem List - Problems (1) Bacteremia Assessment/Plan: IV ABX ID ON CASE PULM CONSULT [facility] 05/14/20 09:56 Blood - Peripheral Venous Blood Culture - Preliminary NO GROWTH OBTAINED AFTER 48 HOURS, INCUBATION TO CONTINUE FOR 3 DAYS. 05/14/20 10:25 Blood - Peripheral Venous Blood Culture - Preliminary NO GROWTH OBTAINED AFTER 48 HOURS, INCUBATION TO CONTINUE FOR 3 DAYS. 05/11/20 16:45 Blood - Peripheral Venous Blood Culture - Final Citrobacter Koseri 05/11/20 16:45 Blood - Peripheral Venous Blood Culture - Preliminary Lactose Fermenting Neg Bacilli Lactose Fermenting Neg Bacilli#2 Code(s): R78.81 - BACTEREMIA (2) Acute on chronic renal failure Assessment/Plan: MONITOR ON CURRENT MEDS RENAL ON CASE US NOTED Code(s): N17.9 - ACUTE KIDNEY FAILURE, UNSPECIFIED; N18.9 - CHRONIC KIDNEY DISEASE, UNSPECIFIED Qualifiers: Acute renal failure type: unspecified Chronic kidney disease stage: unspecified stage Qualified Code(s): N17.9 - Acute kidney failure, unspecified; N18.9 - Chronic kidney disease, unspecified (3) CHF (congestive heart failure) Assessment/Plan: Orders 05/12/20 10:00 Furosemide Injection [Lasix Injection -] 80 mg IVPUSH DAILY EF 40% CARDIO ON BOARD FOLLOW LABS Code(s): I50.9 - HEART FAILURE, UNSPECIFIED Qualifiers: Heart failure type: unspecified Heart failure chronicity: unspecified Qualified Code(s): I50.9 - Heart failure, unspecified (4) Right lower lobe pneumonia Assessment/Plan: IV ABX PULM CONSULT Code(s): J18.9 - PNEUMONIA, UNSPECIFIED ORGANISM Qualifiers: Pneumonia type: due to unspecified organism Qualified Code(s): J18.9 - Pneumonia, unspecified organism (5) Elevated liver enzymes Assessment/Plan: Follow labs dc tylenol abd Lipitor gi consult appreciated Laboratory Tests 05/15/20 05/15/20 05/16/20 10:05 10:05 06:15 AST 220 H 218 H 126 H ALT 529 H 536 H 400 H Alkaline Phosphatase 416 H 416 H 376 H Hepatic Panel Total Bilirubin 0.9 mg/dL (0.2-1) 05/17/20 06:20 Direct Bilirubin 0.4 mg/dL (0.0-0.2) H 05/15/20 10:05 AST 62 U/L (15-37) H 05/17/20 06:20 ALT 276 U/L (13-61) H 05/17/20 06:20 Alkaline Phosphatase 361 U/L (45-117) H 05/17/20 06:20 Albumin 2.1 g/dl (3.4-5.0) L 05/17/20 06:20 Code(s): R74.8 - ABNORMAL LEVELS OF OTHER SERUM ENZYMES (6) Pleural effusion Assessment/Plan: on lasix and abx monitor Code(s): J90 - PLEURAL EFFUSION, NOT ELSEWHERE CLASSIFIED (7) Anemia Assessment/Plan: work up ordered gi consult Laboratory Tests 05/13/20 05/14/20 08:20 10:25 Hgb 10.6 L 9.5 L labs pending Code(s): D64.9 - ANEMIA, UNSPECIFIED
--- NOTE | 2020-05-17 08:20 | PN ---
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, Physician History of Present Illness: The patient is a 70y/o F with a PMH of Uncontrolled DM, Diabetic foot ulcer on R. foot, Chronic osteomyelitis of right foot, Diabetic neuropathy, Left leg BKA, OA, Iron deficiency anemia, HLD, HTN, Charcot's joint, ESBL resistance and CHF who presents to the ED BIBA from [facility] with AMS and arm swelling. Pt reports R arm and face swelling. The patient notes she has had sob and overall swelling (abd, legs, arms) for the past few weeks, also notes increasingly sob. denies any fever/chills, cp, n/v, diaphoresis, cough, dairhrea, dysuria. - Current Medication List Current Medications: Active Medications Acetaminophen (Tylenol -) 650 mg PO Q4H PRN PRN Reason: PAIN Last Admin: 05/16/20 22:09 Dose: 650 mg Documented by: Aspirin (Ecotrin -) 81 mg PO DAILY [facility] Last Admin: 05/16/20 09:17 Dose: 81 mg Documented by: Collagenase (Santyl -) 1 applic TP DAILY [facility]; Protocol Last Admin: 05/16/20 09:18 Dose: Not Given Documented by: Ferrous Sulfate (Feosol -) 325 mg PO DAILY@0800 [facility] Last Admin: 05/16/20 08:17 Dose: 325 mg Documented by: Furosemide (Lasix Injection -) 80 mg IVPB DAILY@0600 [facility] Last Admin: 05/17/20 05:33 Dose: 80 mg Documented by: Furosemide (Lasix Injection -) 40 mg IVPUSH DAILY@1400 [facility] Last Admin: 05/16/20 14:33 Dose: 40 mg Documented by: Heparin Sodium (Porcine) (Heparin -) 5,000 unit SQ TID [facility] Last Admin: 05/17/20 05:33 Dose: 5,000 unit Documented by: Piperacillin Sod/Tazobactam (Sod 2.25 gm/ Dextrose) 50 mls @ 100 mls/hr IVPB Q8H-IV [facility]; Protocol Last Admin: 05/17/20 01:29 Dose: 100 mls/hr Documented by: Insulin Aspart (Novolog Vial Sliding Scale -) 1 vial SQ ACHS [facility]; Protocol Last Admin: 05/17/20 06:07 Dose: 4 units Documented by: Insulin Detemir (Levemir Vial) 10 units SQ HS [facility] Last Admin: 05/16/20 22:08 Dose: Not Given Documented by: Insulin Detemir (Levemir Vial) 25 units SQ AM [facility] Last Admin: 05/17/20 06:07 Dose: Not Given Documented by: - Objective Vital Signs: Vital Signs Temperature 97.9 F 05/17/20 06:00 Pulse Rate 80 05/17/20 06:00 Respiratory Rate 18 05/17/20 06:00 Blood Pressure 159/94 05/17/20 06:00 O2 Sat by Pulse Oximetry (%) 97 05/17/20 06:00 Eyes: Yes: WNL, Conjunctiva Clear, EOM Intact HENT: Yes: WNL, Atraumatic, Normocephalic Neck: Yes: WNL, Supple, Trachea Midline Cardiovascular: Yes: WNL, Regular Rate and Rhythm Respiratory: Yes: WNL, Regular, CTA Bilaterally Gastrointestinal: Yes: WNL, Normal Bowel Sounds Genitourinary: Yes: WNL Musculoskeletal: Yes: WNL Extremities: Yes: WNL Edema: No Integumentary: Yes: WNL Neurological: Yes: WNL, Alert, Oriented ...Motor Strength: WNL Psychiatric: Yes: WNL Labs: CBC, BMP 05/17/20 06:20 05/17/20 06:20 Problem List - Problems (1) Acute on chronic renal failure Code(s): N17.9 - ACUTE KIDNEY FAILURE, UNSPECIFIED; N18.9 - CHRONIC KIDNEY DISEASE, UNSPECIFIED Qualifiers: Acute renal failure type: unspecified Chronic kidney disease stage: unspecified stage Qualified Code(s): N17.9 - Acute kidney failure, u nspecified; N18.9 - Chronic kidney disease, unspecified (2) CHF (congestive heart failure) Code(s): I50.9 - HEART FAILURE, UNSPECIFIED Qualifiers: Heart failure type: unspecified Heart failure chronicity: unspecified Qualified Code(s): I50.9 - Heart failure, unspecified (3) Elevated liver enzymes Code(s): R74.8 - ABNORMAL LEVELS OF OTHER SERUM ENZYMES (4) Right lower lobe pneumonia Code(s): J18.9 - PNEUMONIA, UNSPECIFIED ORGANISM Qualifiers: Pneumonia type: due to unspecified organism Qualified Code(s): J18.9 - Pneumonia, unspecified organism Assessment/Plan mp; ECHO: moderately decreased LVEF; + LVH , infiltrative cardiomyopathy, EKG low voltage: r/o Amyloidosis Anasarca systolic CHF elevated TNIs EKG: NSR: ? old anterior CT; nonspecific T wave inferolateral changes, improving DM s/p BKA Morbid obesity HLP TONIA UTI no DVT Plan: Uncontrolled HTN will start Amlodipin 5 QD ABX Amyloidosis w/u DVT plx F/u renal w/u (on Furosemide IV bid: 80 mg am/40 mg pm; ARB held). F/u prior cardiac w/u for CAD
[2020-05-17] MEDS: ASPIRIN COATED 81 MG TABLET.EC PO SCH (09:50)
[2020-05-17] MEDS: amLODIPine BESYLATE 5 MG TABLET (FP) PO SCH (09:50)
[2020-05-17] MEDS: FERROUS SO4 325 MG TABLET (FP) PO SCH (09:50)
[2020-05-17] MEDS: COLLAGENASE CLOSTRIDIUM HIST. 30 GRAMS TUBE TP SCH (09:51)
--- NOTE | 2020-05-17 12:01 | PN ---
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, Physician Chief Complaint: Acute kidney injury History of Present Illness: Seen and examined at the bedside awake and alert sob is improved making urine no cp, fever, chills has good appetite - Current Medication List Current Medications: Active Medications Acetaminophen (Tylenol -) 650 mg PO Q4H PRN PRN Reason: PAIN Last Admin: 05/16/20 22:09 Dose: 650 mg Documented by: Amlodipine Besylate (Norvasc -) 5 mg PO DAILY [facility] Last Admin: 05/17/20 09:50 Dose: 5 mg Documented by: Aspirin (Ecotrin -) 81 mg PO DAILY [facility] Last Admin: 05/17/20 09:50 Dose: 81 mg Documented by: Collagenase (Santyl -) 1 applic TP DAILY [facility]; Protocol Last Admin: 05/17/20 09:51 Dose: Not Given Documented by: Ferrous Sulfate (Feosol -) 325 mg PO DAILY@0800 [facility] Last Admin: 05/17/20 09:50 Dose: 325 mg Documented by: Furosemide (Lasix Injection -) 80 mg IVPB DAILY@0600 [facility] Last Admin: 05/17/20 05:33 Dose: 80 mg Documented by: Furosemide (Lasix Injection -) 40 mg IVPUSH DAILY@1400 [facility] Last Admin: 05/16/20 14:33 Dose: 40 mg Documented by: Heparin Sodium (Porcine) (Heparin -) 5,000 unit SQ TID [facility] Last Admin: 05/17/20 05:33 Dose: 5,000 unit Documented by: Piperacillin Sod/Tazobactam (Sod 2.25 gm/ Dextrose) 50 mls @ 100 mls/hr IVPB Q8H-IV [facility]; Protocol Last Admin: 05/17/20 09:51 Dose: 100 mls/hr Documented by: Insulin Aspart (Novolog Vial Sliding Scale -) 1 vial SQ ACHS [facility]; Protocol Last Admin: 05/17/20 06:07 Dose: 4 units Documented by: Insulin Detemir (Levemir Vial) 10 units SQ HS [facility] Last Admin: 05/16/20 22:08 Dose: Not Given Documented by: Insulin Detemir (Levemir Vial) 25 units SQ AM [facility] Last Admin: 05/17/20 06:07 Dose: Not Given Documented by: - Objective Vital Signs: Vital Signs Temperature 98.3 F 05/17/20 08:21 Pulse Rate 92 H 05/17/20 08:21 Respiratory Rate 20 05/17/20 08:21 Blood Pressure 189/92 H 05/17/20 08:21 O2 Sat by Pulse Oximetry (%) 97 05/17/20 09:00 Constitutional: Yes: No Distress, Calm Cardiovascular: Yes: Regular Rate and Rhythm Respiratory: Yes: Diminished Gastrointestinal: Yes: Soft. No: Tenderness Extremities: No: Cyanosis Edema: Yes Labs: CBC, BMP 05/17/20 06:20 05/17/20 06:20 Assessment/Plan 70 year old woman with history of CHF, DM type 2, chronic osteomylitis, BKA, hypertension, hyperlipidiemia who presented from the [place] with arm swelling and found to have anasarca, CHF and gram negative bacteremia. 1. Acute kidney injury 2. CHF/Anasarca 3. Gram negative Bacteremia/UTI 4. Hypertension 5. Hyperlipidemia Renal function stable No overt electrolyte or acid/base disturbance noted. Renal US showed no signs of obstruction. Continue BID IV Lasix, trend weights, can consider transition to oral diuretics in next 24-48 hours Clinically pt appears to be losing volume. Antibiotics as per ID Continue amlodipine 5mg daily Thank you Joaquín Berry DO
--- NOTE | 2020-05-17 12:05 | PN ---
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, Physician History of Present Illness: stable no new issues still awaiting blood cx reports repeat cx negative - Current Medication List Current Medications: Active Medications Acetaminophen (Tylenol -) 650 mg PO Q4H PRN PRN Reason: PAIN Last Admin: 05/16/20 22:09 Dose: 650 mg Documented by: Amlodipine Besylate (Norvasc -) 5 mg PO DAILY [facility] Last Admin: 05/17/20 09:50 Dose: 5 mg Documented by: Aspirin (Ecotrin -) 81 mg PO DAILY [facility] Last Admin: 05/17/20 09:50 Dose: 81 mg Documented by: Collagenase (Santyl -) 1 applic TP DAILY [facility]; Protocol Last Admin: 05/17/20 09:51 Dose: Not Given Documented by: Ferrous Sulfate (Feosol -) 325 mg PO DAILY@0800 [facility] Last Admin: 05/17/20 09:50 Dose: 325 mg Documented by: Furosemide (Lasix Injection -) 80 mg IVPB DAILY@0600 [facility] Last Admin: 05/17/20 05:33 Dose: 80 mg Documented by: Furosemide (Lasix Injection -) 40 mg IVPUSH DAILY@1400 [facility] Last Admin: 05/16/20 14:33 Dose: 40 mg Documented by: Heparin Sodium (Porcine) (Heparin -) 5,000 unit SQ TID [facility] Last Admin: 05/17/20 05:33 Dose: 5,000 unit Documented by: Piperacillin Sod/Tazobactam (Sod 2.25 gm/ Dextrose) 50 mls @ 100 mls/hr IVPB Q8H-IV [facility]; Protocol Last Admin: 05/17/20 09:51 Dose: 100 mls/hr Documented by: Insulin Aspart (Novolog Vial Sliding Scale -) 1 vial SQ ACHS [facility]; Protocol Last Admin: 05/17/20 06:07 Dose: 4 units Documented by: Insulin Detemir (Levemir Vial) 10 units SQ HS [facility] Last Admin: 05/16/20 22:08 Dose: Not Given Documented by: Insulin Detemir (Levemir Vial) 25 units SQ AM [facility] Last Admin: 05/17/20 06:07 Dose: Not Given Documented by: - Objective Vital Signs: Vital Signs Temperature 98.3 F 05/17/20 08:21 Pulse Rate 92 H 05/17/20 08:21 Respiratory Rate 20 05/17/20 08:21 Blood Pressure 189/92 H 05/17/20 08:21 O2 Sat by Pulse Oximetry (%) 97 05/17/20 09:00 Constitutional: Yes: No Distress, Calm, Obese Cardiovascular: Yes: S1, S2 Respiratory: Yes: Regular, CTA Bilaterally Gastrointestinal: Yes: Normal Bowel Sounds, Soft Musculoskeletal: Yes: WNL Extremities: Yes: WNL Neurological: Yes: Alert, Oriented Psychiatric: Yes: Alert, Oriented Labs: CBC, BMP 05/17/20 06:20 05/17/20 06:20 Assessment/Plan 70 year old woman with history of CHF, DM type 2, chronic osteomylitis, BKA, hypertension, hyperlipidiemia who presented from the [place] with arm swelling and found to have anasarca, CHF and gram negative bacteremia. 1. Acute kidney injury 2. CHF/Anasarca 3. Gram negative Bacteremia/UTI 4. Hypertension 5. Hyperlipidemia 6 gm negative bacteremia plan continue current mgmt await for identification of the organism continue abx repeat blood negative so far rest as per the team
[2020-05-17] MEDS ORDERED: INSULIN SLIDING SCALE (NOVOLOG) 1 VIAL SQ ONE (12:27)
[2020-05-17] MEDS ORDERED: PT OWN MED DRAWER 7, Y5N ONE (12:27)
--- NOTE | 2020-05-17 12:52 | PN.GI ---
GI 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 Subjective: States had an episode of SOB yesterday, otherwise breathing improved. No acute events LFTs improving - Objective Vital Signs: Vital Signs Temperature 98.3 F 05/17/20 08:21 Pulse Rate 92 H 05/17/20 08:21 Respiratory Rate 20 05/17/20 08:21 Blood Pressure 189/92 H 05/17/20 08:21 O2 Sat by Pulse Oximetry (%) 97 05/17/20 09:00 Constitutional: Calm Eyes: No: Sclera Icterus Cardiovascular: Yes: Pulse Irregular Respiratory: Yes: Diminished (at bases bilaterally) Gastrointestinal Inspection: No: Distention ...Auscultate: Yes: Normoactive Bowel Sounds ...Palpate: Yes: Soft. No: Hepatomegaly, Splenomegaly, Tenderness Edema: Yes Edema: LLE: 1+ Labs: CBC, BMP 05/17/20 06:20 05/17/20 06:20 Problem List - Problems (1) Anemia Assessment/Plan: Normocytic guaiac negative on initial exam and no history of overt GI bleeding reported. Unclear what her baseline is. Likely multifactorial Advise: Hematology evaluation Obtain records from [facility] to compare blood work / recent endoscopic evaluations Code(s): D64.9 - ANEMIA, UNSPECIFIED (2) Elevated liver enzymes Assessment/Plan: Asymptomatic Improving acute hepatitis serologies negative Question if secondary to passive congestion with congestive hepatopathy in setting of CHF exacerbation Advise: Monitor LFTs Avoidance of hepatotoxic agents Check screening hepatitis serologies If LFTs begin to rise again, MRCP if respiratory status permits Obtain records from [facility] to compare Code(s): R74.8 - ABNORMAL LEVELS OF OTHER SERUM ENZYMES
--- NOTE | 2020-05-17 13:43 | PN ---
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 (short form) - Note 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: PULMONARY States breathing is improving. No cough or chest pain. Vital Signs Period Temp Pulse Resp BP Sys/Dobson Pulse Ox Last 24 Hr 97.8 F-98.6 F 80-92 17-20 147-189/67-94 95-98 Intake & Output 05/14/20 05/15/20 05/16/20 05/17/20 23:59 23:59 23:59 23:59 Intake Total 1340 930 470 750 Output Total 500 4100 3100 3400 Balance 840 -3170 -2630 -2650 Weight 113.398 kg Gen: NAD at rest Heart: RRR Lung: decreased breath sounds at the bases Abd: soft, nontender Ext: L BKA, + edema CBC, BMP 05/17/20 06:20 05/17/20 06:20 Active Medications Acetaminophen (Tylenol -) 650 mg PO Q4H PRN PRN Reason: PAIN Last Admin: 05/16/20 22:09 Dose: 650 mg Documented by: Amlodipine Besylate (Norvasc -) 5 mg PO DAILY [facility] Last Admin: 05/17/20 09:50 Dose: 5 mg Documented by: Aspirin (Ecotrin -) 81 mg PO DAILY [facility] Last Admin: 05/17/20 09:50 Dose: 81 mg Documented by: Collagenase (Santyl -) 1 applic TP DAILY [facility]; Protocol Last Admin: 05/17/20 09:51 Dose: Not Given Documented by: Ferrous Sulfate (Feosol -) 325 mg PO DAILY@0800 [facility] Last Admin: 05/17/20 09:50 Dose: 325 mg Documented by: Furosemide (Lasix Injection -) 80 mg IVPB DAILY@0600 [facility] Last Admin: 05/17/20 05:33 Dose: 80 mg Documented by: Furosemide (Lasix Injection -) 40 mg IVPUSH DAILY@1400 [facility] Last Admin: 05/16/20 14:33 Dose: 40 mg Documented by: Heparin Sodium (Porcine) (Heparin -) 5,000 unit SQ TID [facility] Last Admin: 05/17/20 05:33 Dose: 5,000 unit Documented by: Piperacillin Sod/Tazobactam (Sod 2.25 gm/ Dextrose) 50 mls @ 100 mls/hr IVPB Q8H-IV [facility]; Protocol Last Admin: 05/17/20 09:51 Dose: 100 mls/hr Documented by: Insulin Aspart (Novolog Vial Sliding Scale -) 1 vial SQ ACHS [facility]; Protocol Last Admin: 05/17/20 12:04 Dose: 5 units Documented by: Insulin Detemir (Levemir Vial) 10 units SQ HS [facility] Last Admin: 05/16/20 22:08 Dose: Not Given Documented by: Insulin Detemir (Levemir Vial) 25 units SQ AM [facility] Last Admin: 05/17/20 06:07 Dose: Not Given Documented by: A/P Acute on Chronic Diastolic Heart Failure Pleural Effusion UTI Gram Negative Bacteremia Acute Kidney Injury HTN DM Hyperlipidemia - continue lasix - monitor urine output, creatinine - daily weights - O2 to keep Spo2 >90% - continue antibiotics - DVT prophylaxis
[2020-05-17] MEDS: FUROSEMIDE 40 MG/4 ML INJECTABLE VIAL IVPUSH SCH (14:28)
[2020-05-17] MEDS: ACETAMINOPHEN 325 MG TABLET (FP) PO PRN ×2 (15:49→20:02)
[2020-05-17 19:07] LABS: HEP B CORE AB, TOT Negative (Negative)
[2020-05-18] MEDS ORDERED: PIPERACILLIN/TAZOBACTAM 2.25 GM VIAL IVPB ONE ×3 (01:48→17:17)
[2020-05-18] MEDS ORDERED: DEXTROSE 5%-WATER - 50 ML IVPB ONE ×3 (01:48→17:17)
[2020-05-18] MEDS: PIPERACILLIN/TAZOB 2.25 GM 2.25 GM in DEXTROSE 5%-WATER - 50 ML IVPB SCH ×3 (02:15→17:29)
[2020-05-18] MEDS: ACETAMINOPHEN 325 MG TABLET (FP) PO PRN (05:51)
[2020-05-18] MEDS: FUROSEMIDE 100 MG/10 ML INJECTABLE VIAL IVPB SCH (06:05)
[2020-05-18] MEDS: HEPARIN NA (PORCINE) 5,000 UNITS/ML 1ML VIAL SQ SCH ×4 (06:05→21:53)
[2020-05-18] MEDS: INSULIN SLIDING SCALE (NOVOLOG) 1 VIAL SQ SCH ×4 (06:07→21:52)
[2020-05-18] MEDS: INSULIN (LEVEMIR) 100 UNITS/ML UNITS SQ SCH ×2 (06:08→21:52)
--- NOTE | 2020-05-18 08:00 | PN.HO ---
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
[2020-05-18] MEDS: FERROUS SO4 325 MG TABLET (FP) PO SCH (08:20)
--- NOTE | 2020-05-18 09:30 | PN ---
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, Physician - Current Medication List Current Medications: Active Medications Acetaminophen (Tylenol -) 650 mg PO Q4H PRN PRN Reason: PAIN Last Admin: 05/18/20 05:51 Dose: 650 mg Documented by: Amlodipine Besylate (Norvasc -) 5 mg PO DAILY [facility] Last Admin: 05/17/20 09:50 Dose: 5 mg Documented by: Aspirin (Ecotrin -) 81 mg PO DAILY [facility] Last Admin: 05/17/20 09:50 Dose: 81 mg Documented by: Collagenase (Santyl -) 1 applic TP DAILY [facility]; Protocol Last Admin: 05/17/20 09:51 Dose: Not Given Documented by: Ferrous Sulfate (Feosol -) 325 mg PO DAILY@0800 [facility] Last Admin: 05/17/20 09:50 Dose: 325 mg Documented by: Furosemide (Lasix Injection -) 80 mg IVPB DAILY@0600 [facility] Last Admin: 05/18/20 06:05 Dose: 80 mg Documented by: Furosemide (Lasix Injection -) 40 mg IVPUSH DAILY@1400 [facility] Last Admin: 05/17/20 14:28 Dose: 40 mg Documented by: Heparin Sodium (Porcine) (Heparin -) 5,000 unit SQ TID [facility] Last Admin: 05/18/20 06:05 Dose: Not Given Documented by: Piperacillin Sod/Tazobactam (Sod 2.25 gm/ Dextrose) 50 mls @ 100 mls/hr IVPB Q8H-IV [facility]; Protocol Last Admin: 05/18/20 02:15 Dose: 100 mls/hr Documented by: Insulin Aspart (Novolog Vial Sliding Scale -) 1 vial SQ ACHS [facility]; Protocol Last Admin: 05/18/20 06:07 Dose: 4 units Documented by: Insulin Detemir (Levemir Vial) 10 units SQ HS [facility] Last Admin: 05/17/20 21:34 Dose: Not Given Documented by: Insulin Detemir (Levemir Vial) 25 units SQ AM [facility] Last Admin: 05/18/20 06:08 Dose: Not Given Documented by: - Objective Vital Signs: Vital Signs Temperature 98.2 F 05/18/20 06:00 Pulse Rate 82 05/18/20 06:00 Respiratory Rate 20 05/18/20 06:00 Blood Pressure 164/82 05/18/20 06:24 O2 Sat by Pulse Oximetry (%) 98 05/18/20 06:00 Cardiovascular: Yes: S1, S2 Respiratory: Yes: Regular, CTA Bilaterally Gastrointestinal: Yes: Normal Bowel Sounds, Soft Labs: CBC, BMP 05/17/20 06:20 05/17/20 06:20 Problem List - Problems (1) Bacteremia Assessment/Plan: IV ABX ID ON CASE PULM CONSULT [facility] 05/14/20 09:56 Blood - Peripheral Venous Blood Culture - Preliminary NO GROWTH OBTAINED AFTER 48 HOURS, INCUBATION TO CONTINUE FOR 3 DAYS. 05/14/20 10:25 Blood - Peripheral Venous Blood Culture - Preliminary NO GROWTH OBTAINED AFTER 48 HOURS, INCUBATION TO CONTINUE FOR 3 DAYS. 05/11/20 16:45 Blood - Peripheral Venous Blood Culture - Final Citrobacter Koseri 05/11/20 16:45 Blood - Peripheral Venous Blood Culture - Preliminary Lactose Fermenting Neg Bacilli Lactose Fermenting Neg Bacilli#2 Code(s): R78.81 - BACTEREMIA (2) Acute on chronic renal failure Assessment/Plan: MONITOR ON CURRENT MEDS RENAL ON CASE US NOTED Laboratory Tests 05/15/20 05/16/20 05/17/20 10:05 06:15 06:20 BUN 41.6 H 40.2 H 35.6 H Creatinine 1.9 H 1.7 H 1.7 H Code(s): N17.9 - ACUTE KIDNEY FAILURE, UNSPECIFIED; N18.9 - CHRONIC KIDNEY DISEASE, UNSPECIFIED Qualifiers: Acute renal failure type: unspecified Chronic kidney disease stage: unspecified stage Qualified Code(s): N17.9 - Acute kidney failure, unspecified; N18.9 - Chronic kidney disease, unspecified (3) CHF (congestive heart failure) Assessment/Plan: ON Lasix BID EF 40% CARDIO ON BOARD FOLLOW LABS Code(s): I50.9 - HEART FAILURE, UNSPECIFIED Qualifiers: Heart failure type: unspecified Heart failure chronicity: unspecified Qualified Code(s): I50.9 - Heart failure, unspecified (4) Right lower lobe pneumonia Assessment/Plan: IV ABX PULM CONSULT Code(s): J18.9 - PNEUMONIA, UNSPECIFIED ORGANISM Qualifiers: Pneumonia type: due to unspecified organism Qualified Code(s): J18.9 - Pneumonia, unspecified organism (5) Elevated liver enzymes Assessment/Plan: Follow labs dc tylenol abd Lipitor gi consult appreciated Laboratory Tests 05/15/20 05/15/20 05/16/20 10:05 10:05 06:15 AST 220 H 218 H 126 H ALT 529 H 536 H 400 H Alkaline Phosphatase 416 H 416 H 376 H Hepatic Panel Total Bilirubin 0.9 mg/dL (0.2-1) 05/17/20 06:20 Direct Bilirubin 0.4 mg/dL (0.0-0.2) H 05/15/20 10:05 AST 62 U/L (15-37) H 05/17/20 06:20 ALT 276 U/L (13-61) H 05/17/20 06:20 Alkaline Phosphatase 361 U/L (45-117) H 05/17/20 06:20 Albumin 2.1 g/dl (3.4-5.0) L 05/17/20 06:20 Code(s): R74.8 - ABNORMAL LEVELS OF OTHER SERUM ENZYMES (6) Pleural effusion Assessment/Plan: on lasix and abx monitor Code(s): J90 - PLEURAL EFFUSION, NOT ELSEWHERE CLASSIFIED (7) Anemia Assessment/Plan: work up ordered gi consult Laboratory Tests 05/13/20 05/14/20 08:20 10:25 Hgb 10.6 L 9.5 L labs pending Code(s): D64.9 - ANEMIA, UNSPECIFIED (8) Amyloid disease Assessment/Plan: hem noted for fat pad biopsy Code(s): E85.9 - AMYLOIDOSIS, UNSPECIFIED
[2020-05-18] MEDS: ASPIRIN COATED 81 MG TABLET.EC PO SCH (09:48)
[2020-05-18] MEDS: COLLAGENASE CLOSTRIDIUM HIST. 30 GRAMS TUBE TP SCH (09:48)
[2020-05-18] MEDS: amLODIPine BESYLATE 5 MG TABLET (FP) PO SCH (09:48)
--- NOTE | 2020-05-18 10:12 | PN ---
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, Physician History of Present Illness: pulmonary alert,comfortable,breathing better,on nasal o2 - Current Medication List Current Medications: Active Medications Acetaminophen (Tylenol -) 650 mg PO Q4H PRN PRN Reason: PAIN Last Admin: 05/18/20 05:51 Dose: 650 mg Documented by: Amlodipine Besylate (Norvasc -) 5 mg PO DAILY [facility] Last Admin: 05/18/20 09:48 Dose: 5 mg Documented by: Aspirin (Ecotrin -) 81 mg PO DAILY [facility] Last Admin: 05/18/20 09:48 Dose: 81 mg Documented by: Collagenase (Santyl -) 1 applic TP DAILY [facility]; Protocol Last Admin: 05/18/20 09:48 Dose: Not Given Documented by: Ferrous Sulfate (Feosol -) 325 mg PO DAILY@0800 [facility] Last Admin: 05/18/20 08:20 Dose: 325 mg Documented by: Furosemide (Lasix Injection -) 80 mg IVPB DAILY@0600 [facility] Last Admin: 05/18/20 06:05 Dose: 80 mg Documented by: Furosemide (Lasix Injection -) 40 mg IVPUSH DAILY@1400 [facility] Last Admin: 05/17/20 14:28 Dose: 40 mg Documented by: Heparin Sodium (Porcine) (Heparin -) 5,000 unit SQ TID [facility] Last Admin: 05/18/20 06:05 Dose: Not Given Documented by: Piperacillin Sod/Tazobactam (Sod 2.25 gm/ Dextrose) 50 mls @ 100 mls/hr IVPB Q8H-IV [facility]; Protocol Last Admin: 05/18/20 09:47 Dose: 100 mls/hr Documented by: Insulin Aspart (Novolog Vial Sliding Scale -) 1 vial SQ ACHS [facility]; Protocol Last Admin: 05/18/20 06:07 Dose: 4 units Documented by: Insulin Detemir (Levemir Vial) 10 units SQ HS [facility] Last Admin: 05/17/20 21:34 Dose: Not Given Documented by: Insulin Detemir (Levemir Vial) 25 units SQ AM [facility] Last Admin: 05/18/20 06:08 Dose: Not Given Documented by: - Objective Vital Signs: Vital Signs Temperature 98.2 F 05/18/20 09:56 Pulse Rate 103 H 05/18/20 09:56 Respiratory Rate 18 05/18/20 09:56 Blood Pressure 165/93 05/18/20 09:56 O2 Sat by Pulse Oximetry (%) 94 L 05/18/20 10:00 Constitutional: Yes: Well Nourished, Calm Eyes: Yes: WNL HENT: Yes: WNL Neck: Yes: WNL Cardiovascular: Yes: Regular Rate and Rhythm, S1, S2 Respiratory: Yes: Diminished Gastrointestinal: Yes: Normal Bowel Sounds, Soft Extremities: Yes: Amputation (left bka) Edema: Yes Labs: CBC, BMP 05/17/20 06:20 05/17/20 06:20 Problem List - Problems (1) Acute on chronic renal failure Code(s): N17.9 - ACUTE KIDNEY FAILURE, UNSPECIFIED; N18.9 - CHRONIC KIDNEY DISEASE, UNSPECIFIED Qualifiers: Acute renal failure type: unspecified Chronic kidney disease stage: unsp ecified stage Qualified Code(s): N17.9 - Acute kidney failure, unspecified; N18.9 - Chronic kidney disease, unspecified (2) Bacteremia Code(s): R78.81 - BACTEREMIA (3) CHF (congestive heart failure) Code(s): I50.9 - HEART FAILURE, UNSPECIFIED Qualifiers: Heart failure type: unspecified Heart failure chronicity: unspecified Qualified Code(s): I50.9 - Heart failure, unspecified (4) Troponin I above reference range Code(s): R79.89 - OTHER SPECIFIED ABNORMAL FINDINGS OF BLOOD CHEMISTRY (5) Elevated liver enzymes Code(s): R74.8 - ABNORMAL LEVELS OF OTHER SERUM ENZYMES (6) Pleural effusion Code(s): J90 - PLEURAL EFFUSION, NOT ELSEWHERE CLASSIFIED Assessment/Plan IMP DYSPNEA IMPROVING ACUTE ON CHRONIC CHF GRAM NEGATIVE BACTEREMIA ANASARCA PLEURAL EFFUSION LIKELY TRANSUDATE SECONDARY TO ASCITES,CHF HTN HLD DM TONIA S/P L BKA ELEVATED LFTS improving PLAN SUPPLEMENTAL O2 CONTINUE LASIX ABX DAILY WTS MONITOR LYTES,RENAL FUNCTION,LFTS F/U CHEST X-RAYS DR LEAL Problem List - Problems (1) Acute on chronic renal failure Code(s): N17.9 - ACUTE KIDNEY FAILURE, UNSPECIFIED; N18.9 - CHRONIC KIDNEY DISEASE, UNSPECIFIED Qualifiers: Acute renal failure type: unspecified Chronic kidney disease stage: unspecified stage Qualified Code(s): N17.9 - Acute kidney failure, unspecified; N18.9 - Chronic kidney disease, unspecified (2) Bacteremia Code(s): R78.81 - BACTEREMIA (3) CHF (congestive heart failure) Code(s): I50.9 - HEART FAILURE, UNSPECIFIED Qualifiers: Heart failure type: unspecified Heart failure chronicity: unspecified Qualified Code(s): I50.9 - Heart failure, unspecified (4) Troponin I above reference range Code(s): R79.89 - OTHER SPECIFIED ABNORMAL FINDINGS OF BLOOD CHEMISTRY (5) Elevated liver enzymes Code(s): R74.8 - ABNORMAL LEVELS OF OTHER SERUM ENZYMES (6) Pleural effusion Code(s): J90 - PLEURAL EFFUSION, NOT ELSEWHERE CLASSIFIED
--- NOTE | 2020-05-18 12:12 | PN ---
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, Physician History of Present Illness: continues to be intubated pressors and bp better - Current Medication List Current Medications: Active Medications Acetaminophen (Tylenol -) 650 mg PO Q4H PRN PRN Reason: PAIN Last Admin: 05/18/20 05:51 Dose: 650 mg Documented by: Amlodipine Besylate (Norvasc -) 5 mg PO DAILY [facility] Last Admin: 05/18/20 09:48 Dose: 5 mg Documented by: Aspirin (Ecotrin -) 81 mg PO DAILY [facility] Last Admin: 05/18/20 09:48 Dose: 81 mg Documented by: Collagenase (Santyl -) 1 applic TP DAILY [facility]; Protocol Last Admin: 05/18/20 09:48 Dose: Not Given Documented by: Ferrous Sulfate (Feosol -) 325 mg PO DAILY@0800 [facility] Last Admin: 05/18/20 08:20 Dose: 325 mg Documented by: Furosemide (Lasix Injection -) 80 mg IVPB DAILY@0600 [facility] Last Admin: 05/18/20 06:05 Dose: 80 mg Documented by: Furosemide (Lasix Injection -) 40 mg IVPUSH DAILY@1400 [facility] Last Admin: 05/17/20 14:28 Dose: 40 mg Documented by: Heparin Sodium (Porcine) (Heparin -) 5,000 unit SQ TID [facility] Last Admin: 05/18/20 06:05 Dose: Not Given Documented by: Piperacillin Sod/Tazobactam (Sod 2.25 gm/ Dextrose) 50 mls @ 100 mls/hr IVPB Q8H-IV [facility]; Protocol Last Admin: 05/18/20 09:47 Dose: 100 mls/hr Documented by: Insulin Aspart (Novolog Vial Sliding Scale -) 1 vial SQ ACHS [facility]; Protocol Last Admin: 05/18/20 06:07 Dose: 4 units Documented by: Insulin Detemir (Levemir Vial) 10 units SQ HS [facility] Last Admin: 05/17/20 21:34 Dose: Not Given Documented by: Insulin Detemir (Levemir Vial) 25 units SQ AM [facility] Last Admin: 05/18/20 06:08 Dose: Not Given Documented by: - Objective Vital Signs: Vital Signs Temperature 98.2 F 05/18/20 09:56 Pulse Rate 103 H 05/18/20 09:56 Respiratory Rate 18 05/18/20 09:56 Blood Pressure 165/93 05/18/20 09:56 O2 Sat by Pulse Oximetry (%) 94 L 05/18/20 10:00 Constitutional: Yes: Other Cardiovascular: Yes: S1, S2 Respiratory: Yes: Intubated, Mechanically Ventilated, Other Gastrointestinal: Yes: Normal Bowel Sounds, Soft Musculoskeletal: Yes: WNL Extremities: Yes: WNL Edema: LLE: 1+, RLE: 1+ Neurological: Yes: Alert, Oriented Psychiatric: Yes: Alert, Oriented Labs: CBC, BMP 05/17/20 06:20 05/17/20 06:20 Assessment/Plan 70 year old woman with history of CHF, DM type 2, chronic osteomylitis, BKA, hypertension, hyperlipidiemia who presented from the [place] with arm swelling and found to have anasarca, CHF and gram negative bacteremia. 1. Acute kidney injury 2. CHF/Anasarca 3. Gram negative Bacteremia/UTI 4. Hypertension 5. Hyperlipidemia 6 gm negative bacteremia plan continue current mgmt await for identification of the organism continue abx repeat blood negative so far rest as per the team
--- NOTE | 2020-05-18 13:12 | PN ---
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, Physician Chief Complaint: Pt A&Ox3; no chest pain or dypsnea History of Present Illness: Ms. Figueroa is a 70y/o black woman (b. [place]), with a PMH of Uncontrolled DM, Diabetic foot ulcer on R. foot, Chronic osteomyelitis of right foot, Diabetic neuropathy, Left leg BKA, morbid obesity, OA, Iron deficiency anemia, HLD, HTN, Charcot's joint, ESBL resistance and CHF who presents to the ED [facility] from [facility] on [address] with AMS and arm swelling. Pt reports R arm and face swelling. The patient notes she has had sob and overall swelling (abd, legs, arms) for the past few weeks, also notes increasingly sob. denies any fever/chills, cp, n/v, diaphoresis, cough, dairhrea, dysuria. - Current Medication List Current Medications: Active Medications Acetaminophen (Tylenol -) 650 mg PO Q4H PRN PRN Reason: PAIN Last Admin: 05/18/20 05:51 Dose: 650 mg Documented by: Amlodipine Besylate (Norvasc -) 5 mg PO DAILY [facility] Last Admin: 05/18/20 09:48 Dose: 5 mg Documented by: Aspirin (Ecotrin -) 81 mg PO DAILY [facility] Last Admin: 05/18/20 09:48 Dose: 81 mg Documented by: Collagenase (Santyl -) 1 applic TP DAILY [facility]; Protocol Last Admin: 05/18/20 09:48 Dose: Not Given Documented by: Ferrous Sulfate (Feosol -) 325 mg PO DAILY@0800 [facility] Last Admin: 05/18/20 08:20 Dose: 325 mg Documented by: Furosemide (Lasix Injection -) 80 mg IVPB DAILY@0600 [facility] Last Admin: 05/18/20 06:05 Dose: 80 mg Documented by: Furosemide (Lasix Injection -) 40 mg IVPUSH DAILY@1400 [facility] Last Admin: 05/17/20 14:28 Dose: 40 mg Documented by: Heparin Sodium (Porcine) (Heparin -) 5,000 unit SQ TID [facility] Last Admin: 05/18/20 06:05 Dose: Not Given Documented by: Piperacillin Sod/Tazobactam (Sod 2.25 gm/ Dextrose) 50 mls @ 100 mls/hr IVPB Q8H-IV [facility]; Protocol Last Admin: 05/18/20 09:47 Dose: 100 mls/hr Documented by: Insulin Aspart (Novolog Vial Sliding Scale -) 1 vial SQ ACHS [facility]; Protocol Last Admin: 05/18/20 12:00 Dose: 4 units Documented by: Insulin Detemir (Levemir Vial) 10 units SQ HS [facility] Last Admin: 05/17/20 21:34 Dose: Not Given Documented by: Insulin Detemir (Levemir Vial) 25 units SQ AM [facility] Last Admin: 05/18/20 06:08 Dose: Not Given Documented by: - Objective Vital Signs: Vital Signs Temperature 98.6 F 05/18/20 13:08 Pulse Rate 96 H 05/18/20 13:08 Respiratory Rate 16 05/18/20 13:08 Blood Pressure 171/94 H 05/18/20 13:08 O2 Sat by Pulse Oximetry (%) 94 L 05/18/20 10:00 Labs: CBC, BMP 05/17/20 06:20 05/17/20 06:20 Assessment/Plan Imp; ECHO: moderately decreased LVEF; + LVH , infiltrative cardiomyopathy, EKG low voltage: r/o Amyloidosis Anasarca systolic CHF elevated TNIs EKG: NSR: ? old anterior [place]; nonspecific T wave inferolateral changes, improving DM s/p BKA Morbid obesity HLP TONIA UTI no DVT Plan: ABX Amyloidosis w/u; will plan on f/u with heart failure groupd in [facility]. DVT plx F/u renal w/u (on Furosemide IV bid: 80 mg am/40 mg pm; ARB held). F/u BP serially Start ACEI (systolic CHF; DM), unless contraindications exist; f/u BUn/Cr, Is and Os, daily weight, electrolytes. F/u TNI and EKG serially F/u prior cardiac w/u for CAD
--- NOTE | 2020-05-18 13:21 | PN ---
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, Physician Chief Complaint: Pt A&Ox3; no chest pain or dypsnea. Pt asked details about her medications, saying she is very careful about everything she takes. History of Present Illness: Ms. Figueroa is a 70y/o black woman (. [place]), with a PMH of Uncontrolled DM, Diabetic foot ulcer on R. foot, Chronic osteomyelitis of right foot, Diabetic neuropathy, Left leg BKA, morbid obesity, OA, Iron deficiency anemia, HLD, HTN, Charcot's joint, ESBL resistance and CHF who presents to the ED [facility] from [facility] with AMS and arm swelling. Pt reports R arm and face swelling. The patient notes she has had sob and overall swelling (abd, legs, arms) for the past few weeks, also notes increasingly sob. denies any fever/chills, cp, n/v, diaphoresis, cough, dairhrea, dysuria. - Current Medication List Current Medications: Active Medications Acetaminophen (Tylenol -) 650 mg PO Q4H PRN PRN Reason: PAIN Last Admin: 05/18/20 05:51 Dose: 650 mg Documented by: Amlodipine Besylate (Norvasc -) 5 mg PO DAILY [facility] Last Admin: 05/18/20 09:48 Dose: 5 mg Documented by: Aspirin (Ecotrin -) 81 mg PO DAILY [facility] Last Admin: 05/18/20 09:48 Dose: 81 mg Documented by: Collagenase (Santyl -) 1 applic TP DAILY [facility]; Protocol Last Admin: 05/18/20 09:48 Dose: Not Given Documented by: Ferrous Sulfate (Feosol -) 325 mg PO DAILY@0800 [facility] Last Admin: 05/18/20 08:20 Dose: 325 mg Documented by: Furosemide (Lasix Injection -) 80 mg IVPB DAILY@0600 [facility] Last Admin: 05/18/20 06:05 Dose: 80 mg Documented by: Furosemide (Lasix Injection -) 40 mg IVPUSH DAILY@1400 [facility] Last Admin: 05/17/20 14:28 Dose: 40 mg Documented by: Heparin Sodium (Porcine) (Heparin -) 5,000 unit SQ TID [facility] Last Admin: 05/18/20 06:05 Dose: Not Given Documented by: Piperacillin Sod/Tazobactam (Sod 2.25 gm/ Dextrose) 50 mls @ 100 mls/hr IVPB Q8H-IV [facility]; Protocol Last Admin: 05/18/20 09:47 Dose: 100 mls/hr Documented by: Insulin Aspart (Novolog Vial Sliding Scale -) 1 vial SQ ACHS [facility]; Protocol Last Admin: 05/18/20 12:00 Dose: 4 units Documented by: Insulin Detemir (Levemir Vial) 10 units SQ HS [facility] Last Admin: 05/17/20 21:34 Dose: Not Given Documented by: Insulin Detemir (Levemir Vial) 25 units SQ AM [facility] Last Admin: 05/18/20 06:08 Dose: Not Given Documented by: - Objective Vital Signs: Vital Signs Temperature 98.6 F 05/18/20 13:08 Pulse Rate 96 H 05/18/20 13:08 Respiratory Rate 16 05/18/20 13:08 Blood Pressure 171/94 H 05/18/20 13:08 O2 Sat by Pulse Oximetry (%) 94 L 05/18/20 10:00 Constitutional: Yes: Obese Eyes: Yes: WNL HENT: Yes: WNL Neck: Yes: WNL Cardiovascular: Yes: S1, S2, S4 Respiratory: Yes: Regular (improved aeration; not dyspneic) Gastrointestinal: Yes: Soft ...Rectal Exam: Yes: Deferred Genitourinary: Yes: Anuria Breast(s): Yes: WNL Musculoskeletal: Yes: Muscle Weakness Extremities: Yes: Cool, Other (Left BKA; right foot bandaged) Edema: No Peripheral Pulses WNL: No Integumentary: Yes: Other Wound/Incision: Yes: Dressing Dry and Intact Neurological: Yes: Alert, Oriented, Weakness Psychiatric: Yes: Alert, Oriented Labs: CBC, BMP 05/17/20 06:20 05/17/20 06:20 - ....Imaging Chest X-ray: Image Reviewed EKG: Image Reviewed Assessment/Plan Imp; ECHO: moderately decreased LVEF; + LVH , infiltrative cardiomyopathy, EKG low voltage: r/o Amyloidosis acute/?chronic systolic/diastolic CHF BNP>16,000; congestive changes, pleural effusion on CXR Anasarca elevated TNIs elevated LFTs EKG: NSR: ? old anterior [place]; nonspecific T wave inferolateral changes, improving DM s/p BKA Morbid obesity HLP TONIA UTI no DVT anemia Plan: ABX Amyloidosis w/u; will plan on f/u with heart failure/cardiomyopathy group in [facility]. F/u renal w/u (furosemide IV reduced); ?for change to oral agent. Amlodipine added for BP; will start metoprolol (HTN; systolic CHF; no hx asthma). F/u BP serially On iron Improving respiatory status; Repeat CXR replete K, and keep 4.0-4.5; keep Mg 2.0-2.4 F/u prior cardiac w/u for CAD
--- NOTE | 2020-05-18 13:53 | PN ---
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 (short form) - Note 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: No LFTs today I stopped acetaminophen and ordered hepatic panel for tomorrow Problem List - Problems (1) Anemia Code(s): D64.9 - ANEMIA, UNSPECIFIED (2) Elevated liver enzymes Code(s): R74.8 - ABNORMAL LEVELS OF OTHER SERUM ENZYMES
[2020-05-18] MEDS: FUROSEMIDE 40 MG/4 ML INJECTABLE VIAL IVPUSH SCH (14:46)
[2020-05-18] MEDS: METOPROLOL TARTRATE 25 MG TABLET (FP) PO SCH ×2 (14:47→21:52)
[2020-05-18] MEDS ORDERED: POTASSIUM CHLORIDE TABS 20 MEQ TABLET.ER (FP) PO ONE (15:55)
--- NOTE | 2020-05-18 17:19 | PN ---
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, Physician Chief Complaint: Acute kidney injury History of Present Illness: Seen and examined at the bedside awake and alert offers no acute complaints no sob, cp, fever, chills, N/V/D making urine swelling improved - Current Medication List Current Medications: Active Medications Amlodipine Besylate (Norvasc -) 5 mg PO DAILY [facility] Last Admin: 05/18/20 09:48 Dose: 5 mg Documented by: Aspirin (Ecotrin -) 81 mg PO DAILY [facility] Last Admin: 05/18/20 09:48 Dose: 81 mg Documented by: Collagenase (Santyl -) 1 applic TP DAILY [facility]; Protocol Last Admin: 05/18/20 09:48 Dose: Not Given Documented by: Ferrous Sulfate (Feosol -) 325 mg PO DAILY@0800 [facility] Last Admin: 05/18/20 08:20 Dose: 325 mg Documented by: Furosemide (Lasix Injection -) 40 mg IVPUSH DAILY@1400 [facility] Last Admin: 05/18/20 14:46 Dose: 40 mg Documented by: Heparin Sodium (Porcine) (Heparin -) 5,000 unit SQ TID [facility] Last Admin: 05/18/20 14:59 Dose: Not Given Documented by: Piperacillin Sod/Tazobactam (Sod 2.25 gm/ Dextrose) 50 mls @ 100 mls/hr IVPB Q8H-IV [facility]; Protocol Last Admin: 05/18/20 09:47 Dose: 100 mls/hr Documented by: Insulin Aspart (Novolog Vial Sliding Scale -) 1 vial SQ ACHS [facility]; Protocol Last Admin: 05/18/20 16:27 Dose: 5 units Documented by: Insulin Detemir (Levemir Vial) 10 units SQ HS [facility] Last Admin: 05/17/20 21:34 Dose: Not Given Documented by: Insulin Detemir (Levemir Vial) 25 units SQ AM [facility] Last Admin: 05/18/20 06:08 Dose: Not Given Documented by: Metoprolol Tartrate (Lopressor -) 25 mg PO BID [facility] Last Admin: 05/18/20 14:47 Dose: 25 mg Documented by: Torsemide (Demadex -) 80 mg PO DAILY@0600 [facility] - Objective Vital Signs: Vital Signs Temperature 98.6 F 05/18/20 13:08 Pulse Rate 96 H 05/18/20 13:08 Respiratory Rate 16 05/18/20 13:08 Blood Pressure 171/94 H 08/11/20 13:08 O2 Sat by Pulse Oximetry (%) 94 L 05/18/20 10:00 Constitutional: Yes: No Distress, Calm HENT: Yes: Atraumatic Neck: Yes: Supple Cardiovascular: Yes: Regular Rate and Rhythm Respiratory: Yes: Regular Gastrointestinal: Yes: Soft Extremities: No: Cold, Cool, Cyanosis Edema: Yes Edema: LLE: Trace, RLE: Trace Neurological: Yes: Alert, Oriented Labs: CBC, BMP 05/17/20 06:20 05/17/20 06:20 Assessment/Plan 70 year old woman with history of CHF, DM type 2, chronic osteomylitis, BKA, hypertension, hyperlipidiemia who presented from the [place] with arm swelling and found to have anasarca, CHF and gram negative bacteremia. 1. Acute kidney injury 2. CHF/Anasarca 3. Gram negative Bacteremia/UTI 4. Hypertension 5. Hyperlipidemia Renal function stable No overt electrolyte or acid/base disturbance noted. Volume status is improved, convert to oral diuretics: Torsemide 80mg daily starting tomorrow Trend renal function and electrolytes while inpatient Thank you Joaquín Berry DO
[2020-05-18] MEDS ORDERED: LIDOCAINE 5% TOPICAL PATCH TP ONE (22:31)
--- NOTE | 2020-05-18 23:47 | PN ---
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 (short form) - Note 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: remains weak appetite improved,blood sugars elevated Current Active Problems DMT2,ckd,hyperglycemia Acute on chronic renal failure (Acute) Amyloid disease (Acute) Anemia (Acute) Bacteremia (Acute) CHF (congestive heart failure) (Acute) Elevated liver enzymes (Acute) Pleural effusion (Acute) Right lower lobe pneumonia (Acute) Troponin I above reference range (Acute) Laboratory Results - last 24 hr 05/18/20 05/18/20 05/18/20 06:06 16:27 21:44 POC Glucometer 163 [id number] 303 plan: bgm qid novolog scale bid levemir doses titrated higher dose of levemir 32 units am as daily requirements increasing Problem List - Problems (1) Acute on chronic renal failure Code(s): N17.9 - ACUTE KIDNEY FAILURE, UNSPECIFIED; N18.9 - CHRONIC KIDNEY DISEASE, UNSPECIFIED Qualifiers: Acute renal failure type: unspecified Chronic kidney disease stage: unspecified stage Qualified Code(s): N17.9 - Acute kidney failure, unspecified; N18.9 - Chronic kidney disease, unspecified (2) Bacteremia Code(s): R78.81 - BACTEREMIA (3) CHF (congestive heart failure) Code(s): I50.9 - HEART FAILURE, UNSPECIFIED Qualifiers: Heart failure type: unspecified Heart failure chronicity: unspecified Qualified Code(s): I50.9 - Heart failure, unspecified (4) Elevated liver enzymes Code(s): R74.8 - ABNORMAL LEVELS OF OTHER SERUM ENZYMES (5) Pleural effusion Code(s): J90 - PLEURAL EFFUSION, NOT ELSEWHERE CLASSIFIED (6) Right lower lobe pneumonia Code(s): J18.9 - PNEUMONIA, UNSPECIFIED ORGANISM Qualifiers: Pneumonia type: due to unspecified organism Qualified Code(s): J18.9 - Pneumonia, unspecified organism (7) Troponin I above reference range Code(s): R79.89 - OTHER SPECIFIED ABNORMAL FINDINGS OF BLOOD CHEMISTRY
[2020-05-19] MEDS ORDERED: DEXTROSE 5%-WATER - 50 ML IVPB ONE ×3 (01:18→16:49)
[2020-05-19] MEDS ORDERED: PIPERACILLIN/TAZOBACTAM 2.25 GM VIAL IVPB ONE ×3 (01:18→16:49)
[2020-05-19] MEDS: PIPERACILLIN/TAZOB 2.25 GM 2.25 GM in DEXTROSE 5%-WATER - 50 ML IVPB SCH ×3 (01:37→17:44)
--- NOTE | 2020-05-19 01:54 | PN ---
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 (short form) - Note 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: RN reports pt refusing levemir and heparin overnight. Discussed importance of medication along with risks and benefits with pt, pt still declines.
[2020-05-19] MEDS: TORSEMIDE 20 MG TABLET (FP) PO SCH (06:20)
[2020-05-19] MEDS: INSULIN SLIDING SCALE (NOVOLOG) 1 VIAL SQ SCH ×4 (06:20→22:01)
[2020-05-19] MEDS: INSULIN (LEVEMIR) 100 UNITS/ML UNITS SQ SCH ×2 (06:22→22:01)
[2020-05-19 07:10] LABS: ALBUMIN 2.1 g/dl (3.4-5.0); BILIRUBIN,DIRECT 0.2 mg/dL (0.0-0.2); BILIRUBIN,TOTAL 0.8 mg/dL (0.2-1); BLOOD UREA NITROGEN 30.8 mg/dL (7-18); CALCIUM 8.7 mg/dL (8.5-10.1); CREATININE 1.4 mg/dL (0.55-1.3); MAGNESIUM 1.9 mg/dL (1.8-2.4); POTASSIUM 3.5 mmol/L (3.5-5.1); TOT PROT 7.2 g/dl (6.4-8.2)
[2020-05-19] MEDS: FERROUS SO4 325 MG TABLET (FP) PO SCH (08:30)
--- NOTE | 2020-05-19 08:53 | PN ---
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, Physician - Current Medication List Current Medications: Active Medications Amlodipine Besylate (Norvasc -) 5 mg PO DAILY [facility] Last Admin: 05/18/20 09:48 Dose: 5 mg Documented by: Aspirin (Ecotrin -) 81 mg PO DAILY [facility] Last Admin: 05/18/20 09:48 Dose: 81 mg Documented by: Collagenase (Santyl -) 1 applic TP DAILY [facility]; Protocol Last Admin: 05/18/20 09:48 Dose: Not Given Documented by: Ferrous Sulfate (Feosol -) 325 mg PO DAILY@0800 [facility] Last Admin: 05/18/20 08:20 Dose: 325 mg Documented by: Furosemide (Lasix Injection -) 40 mg IVPUSH DAILY@1400 [facility] Last Admin: 05/18/20 14:46 Dose: 40 mg Documented by: Piperacillin Sod/Tazobactam (Sod 2.25 gm/ Dextrose) 50 mls @ 100 mls/hr IVPB Q8H-IV [facility]; Protocol Last Admin: 05/19/20 01:37 Dose: 100 mls/hr Documented by: Insulin Aspart (Novolog Vial Sliding Scale -) 1 vial SQ ACHS [facility]; Protocol Last Admin: 05/19/20 06:20 Dose: 4 units Documented by: Insulin Detemir (Levemir Vial) 10 units SQ HS [facility] Last Admin: 05/18/20 21:52 Dose: Not Given Documented by: Insulin Detemir (Levemir Vial) 32 units SQ AM [facility] Last Admin: 05/19/20 06:22 Dose: Not Given Documented by: Metoprolol Tartrate (Lopressor -) 25 mg PO BID [facility] Last Admin: 05/18/20 21:52 Dose: 25 mg Documented by: Miscellaneous (Lidoderm Patch Removal) 1 each MC DAILY@2200 [facility] Stop: 05/19/20 12:12 Torsemide (Demadex -) 80 mg PO DAILY@0600 [facility] Last Admin: 05/19/20 06:20 Dose: 80 mg Documented by: - Objective Vital Signs: Vital Signs Temperature 98.0 F 05/19/20 06:00 Pulse Rate 87 05/19/20 06:00 Respiratory Rate 20 05/19/20 06:00 Blood Pressure 164/86 05/19/20 06:00 O2 Sat by Pulse Oximetry (%) 99 05/19/20 06:00 Cardiovascular: Yes: S1, S2 Respiratory: Yes: Regular, CTA Bilaterally Gastrointestinal: Yes: Normal Bowel Sounds, Soft. No: Tenderness Extremities: Yes: Amputation (left bka) Labs: CBC, BMP 05/17/20 06:20 05/19/20 06:05 Problem List - Problems (1) Bacteremia Assessment/Plan: IV ABX ID ON CASE PULM CONSULT [facility] 05/14/20 09:56 Blood - Peripheral Venous Blood Culture - Preliminary NO GROWTH OBTAINED AFTER 48 HOURS, INCUBATION TO CONTINUE FOR 3 DAYS. 05/14/20 10:25 Blood - Peripheral Venous Blood Culture - Preliminary NO GROWTH OBTAINED AFTER 48 HOURS, INCUBATION TO CONTINUE FOR 3 DAYS. 05/11/20 16:45 Blood - Peripheral Venous Blood Culture - Final Citrobacter Koseri 05/11/20 16:45 Blood - Peripheral Venous Blood Culture - Preliminary Lactose Fermenting Neg Bacilli Lactose Fermenting Neg Bacilli#2 Code(s): R78.81 - BACTEREMIA (2) Acute on chronic renal failure Assessment/Plan: MONITOR ON CURRENT MEDS RENAL ON CASE US NOTED Laboratory Tests 05/15/20 05/16/20 05/17/20 10:05 06:15 06:20 BUN 41.6 H 40.2 H 35.6 H Creatinine 1.9 H 1.7 H 1.7 H Abnormal Lab Results 05/19/20 06:05 Carbon Dioxide 34 H Anion Gap 5 L BUN 30.8 H Creatinine 1.4 H Random Glucose 204 H ALT 147 H Alkaline Phosphatase 312 H Albumin 2.1 L Code(s): N17.9 - ACUTE KIDNEY FAILURE, UNSPECIFIED; N18.9 - CHRONIC KIDNEY DISEASE, UNSPECIFIED Qualifiers: Acute renal failure type: unspecified Chronic kidney disease stage: unspecified stage Qualified Code(s): N17.9 - Acute kidney failure, unspecified; N18.9 - Chronic kidney disease, unspecified (3) CHF (congestive heart failure) Assessment/Plan: ON Lasix BID EF 40% CARDIO ON BOARD FOLLOW LABS Code(s): I50.9 - HEART FAILURE, UNSPECIFIED Qualifiers: Heart failure type: unspecified Heart failure chronicity: unspecified Qualified Code(s): I50.9 - Heart failure, unspecified (4) Right lower lobe pneumonia Assessment/Plan: IV ABX PULM CONSULT Appreciated Code(s): J18.9 - PNEUMONIA, UNSPECIFIED ORGANISM Qualifiers: Pneumonia type: due to unspecified organism Qualified Code(s): J18.9 - Pneumonia, unspecified organism (5) Elevated liver enzymes Assessment/Plan: Follow labs dc tylenol abd Lipitor gi consult appreciated Laboratory Tests 05/15/20 05/15/20 05/16/20 10:05 10:05 06:15 AST 220 H 218 H 126 H ALT 529 H 536 H 400 H Alkaline Phosphatase 416 H 416 H 376 H Hepatic Panel Total Bilirubin 0.9 mg/dL (0.2-1) 05/17/20 06:20 Direct Bilirubin 0.4 mg/dL (0.0-0.2) H 05/15/20 10:05 AST 62 U/L (15-37) H 05/17/20 06:20 ALT 276 U/L (13-61) H 05/17/20 06:20 Alkaline Phosphatase 361 U/L (45-117) H 05/17/20 06:20 Albumin 2.1 g/dl (3.4-5.0) L 05/17/20 06:20 Hepatic Panel Total Bilirubin 0.8 mg/dL (0.2-1) 05/19/20 06:05 Direct Bilirubin 0.2 mg/dL (0.0-0.2) 05/19/20 06:05 AST 28 U/L (15-37) 05/19/20 06:05 ALT 147 U/L (13-61) H 05/19/20 06:05 Alkaline Phosphatase 312 U/L (45-117) H 05/19/20 06:05 Albumin 2.1 g/dl (3.4-5.0) L 05/19/20 06:05 Code(s): R74.8 - ABNORMAL LEVELS OF OTHER SERUM ENZYMES (6) Pleural effusion Assessment/Plan: on lasix and abx monitor Code(s): J90 - PLEURAL EFFUSION, NOT ELSEWHERE CLASSIFIED (7) Anemia Assessment/Plan: work up ordered gi consult Laboratory Tests 05/13/20 05/14/20 08:20 10:25 Hgb 10.6 L 9.5 L labs pending Code(s): D64.9 - ANEMIA, UNSPECIFIED (8) Amyloid disease Assessment/Plan: hem noted --for fat pad biopsy surgical consult pending Code(s): E85.9 - AMYLOIDOSIS, UNSPECIFIED
--- NOTE | 2020-05-19 09:36 | PN ---
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, Physician History of Present Illness: PULMONARY ALERT,FEELING BETTER,LESS DYSPNEIC,ON NASAL O2. - Current Medication List Current Medications: Active Medications Amlodipine Besylate (Norvasc -) 5 mg PO DAILY [facility] Last Admin: 05/18/20 09:48 Dose: 5 mg Documented by: Aspirin (Ecotrin -) 81 mg PO DAILY [facility] Last Admin: 05/18/20 09:48 Dose: 81 mg Documented by: Collagenase (Santyl -) 1 applic TP DAILY [facility]; Protocol Last Admin: 05/18/20 09:48 Dose: Not Given Documented by: Ferrous Sulfate (Feosol -) 325 mg PO DAILY@0800 [facility] Last Admin: 05/18/20 08:20 Dose: 325 mg Documented by: Furosemide (Lasix Injection -) 40 mg IVPUSH DAILY@1400 [facility] Last Admin: 05/18/20 14:46 Dose: 40 mg Documented by: Piperacillin Sod/Tazobactam (Sod 2.25 gm/ Dextrose) 50 mls @ 100 mls/hr IVPB Q8H-IV [facility]; Protocol Last Admin: 05/19/20 01:37 Dose: 100 mls/hr Documented by: Insulin Aspart (Novolog Vial Sliding Scale -) 1 vial SQ ACHS [facility]; Protocol Last Admin: 05/19/20 06:20 Dose: 4 units Documented by: Insulin Detemir (Levemir Vial) 10 units SQ HS [facility] Last Admin: 05/18/20 21:52 Dose: Not Given Documented by: Insulin Detemir (Levemir Vial) 32 units SQ AM [facility] Last Admin: 05/19/20 06:22 Dose: Not Given Documented by: Metoprolol Tartrate (Lopressor -) 25 mg PO BID [facility] Last Admin: 05/18/20 21:52 Dose: 25 mg Documented by: Miscellaneous (Lidoderm Patch Removal) 1 each MC DAILY@2200 [facility] Stop: 05/19/20 12:12 Torsemide (Demadex -) 80 mg PO DAILY@0600 [facility] Last Admin: 05/19/20 06:20 Dose: 80 mg Documented by: - Objective Vital Signs: Vital Signs Temperature 98.0 F 05/19/20 06:00 Pulse Rate 87 05/19/20 06:00 Respiratory Rate 20 05/19/20 06:00 Blood Pressure 164/86 05/19/20 06:00 O2 Sat by Pulse Oximetry (%) 99 05/19/20 06:00 Constitutional: Yes: Well Nourished, Calm Eyes: Yes: WNL HENT: Yes: WNL Neck: Yes: WNL Cardiovascular: Yes: Regular Rate and Rhythm, S1, S2 Respiratory: Yes: Diminished Gastrointestinal: Yes: Normal Bowel Sounds, Soft Extremities: Yes: Amputation (LEFT BKA) Edema: Yes Labs: CBC, BMP 05/17/20 06:20 05/19/20 06:05 Problem List - Problems (1) Acute on chronic renal failure Code(s): N17.9 - ACUTE KIDNEY FAILURE, UNSPECIFIED; N18.9 - CHRONIC KIDNEY DISEASE, UNSPECIFIED Qualifiers: Acute renal failure type: unspecified Chronic kidney disease stage: unspecified stage Qualified Code(s): N17.9 - Acute kidney failure, unspecified; N18.9 - Chronic kidney disease, unspecified (2) Bacteremia Code(s): R78.81 - BACTEREMIA (3) CHF (congestive heart failure) Code(s): I50.9 - HEART FAILURE, UNSPECIFIED Qualifiers: Heart failure type: unspecified Heart failure chronicity: unspecified Qualified Code(s): I50.9 - Heart failure, unspecified (4) Troponin I above reference range Code(s): R79.89 - OTHER SPECIFIED ABNORMAL FINDINGS OF BLOOD CHEMISTRY (5) Elevated liver enzymes Code(s): R74.8 - ABNORMAL LEVELS OF OTHER SERUM ENZYMES (6) Pleural effusion Code(s): J90 - PLEURAL EFFUSION, NOT ELSEWHERE CLASSIFIED Assessment/Plan IMP DYSPNEA IMPROVING ACUTE ON CHRONIC CHF GRAM NEGATIVE BACTEREMIA ANASARCA PLEURAL EFFUSION LIKELY TRANSUDATE SECONDARY TO ASCITES,CHF HTN HLD DM TONIA S/P L BKA ELEVATED LFTS improving PLAN SUPPLEMENTAL O2 CONTINUE LASIX ABX DAILY WTS MONITOR LYTES,RENAL FUNCTION,LFTS F/U CHEST X-RAYS DR LEAL Problem List - Problems (1) Acute on chronic renal failure Code(s): N17.9 - ACUTE KIDNEY FAILURE, UNSPECIFIED; N18.9 - CHRONIC KIDNEY DISEASE, UNSPECIFIED Qualifiers: Acute renal failure type: unspecified Chronic kidney disease stage: unspecified stage Qualified Code(s): N17.9 - Acute kidney failure, unspecified; N18.9 - Chronic kidney disease, unspecified (2) Bacteremia Code(s): R78.81 - BACTEREMIA (3) CHF (congestive heart failure) Code(s): I50.9 - HEART FAILURE, UNSPECIFIED Qualifiers: Heart failure type: unspecified Heart failure chronicity: unspecified Qualified Code(s): I50.9 - Heart failure, unspecified (4) Troponin I above reference range Code(s): R79.89 - OTHER SPECIFIED ABNORMAL FINDINGS OF BLOOD CHEMISTRY (5) Elevated liver enzymes Code(s): R74.8 - ABNORMAL LEVELS OF OTHER SERUM ENZYMES (6) Pleural effusion Code(s): J90 - PLEURAL EFFUSION, NOT ELSEWHERE CLASSIFIED
[2020-05-19] MEDS: COLLAGENASE CLOSTRIDIUM HIST. 30 GRAMS TUBE TP SCH (09:49)
[2020-05-19] MEDS: METOPROLOL TARTRATE 25 MG TABLET (FP) PO SCH (09:49)
[2020-05-19] MEDS: amLODIPine BESYLATE 5 MG TABLET (FP) PO SCH (09:49)
[2020-05-19] MEDS: ASPIRIN COATED 81 MG TABLET.EC PO SCH (09:49)
--- NOTE | 2020-05-19 10:05 | PN ---
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, Physician History of Present Illness: The patient is a 70y/o F with a PMH of Uncontrolled DM, Diabetic foot ulcer on R. foot, Chronic osteomyelitis of right foot, Diabetic neuropathy, Left leg BKA, OA, Iron deficiency anemia, HLD, HTN, Charcot's joint, ESBL resistance and CHF who presents to the ED BIBA from [facility] with AMS and arm swelling. Pt reports R arm and face swelling. The patient notes she has had sob and overall swelling (abd, legs, arms) for the past few weeks, also notes increasingly sob. denies any fever/chills, cp, n/v, diaphoresis, cough, dairhrea, dysuria. - Current Medication List Current Medications: Active Medications Amlodipine Besylate (Norvasc -) 5 mg PO DAILY [facility] Last Admin: 05/19/20 09:49 Dose: 5 mg Documented by: Aspirin (Ecotrin -) 81 mg PO DAILY [facility] Last Admin: 05/19/20 09:49 Dose: 81 mg Documented by: Collagenase (Santyl -) 1 applic TP DAILY [facility]; Protocol Last Admin: 05/19/20 09:49 Dose: Not Given Documented by: Ferrous Sulfate (Feosol -) 325 mg PO DAILY@0800 [facility] Last Admin: 05/19/20 08:30 Dose: 325 mg Documented by: Furosemide (Lasix Injection -) 40 mg IVPUSH DAILY@1400 [facility] Last Admin: 05/18/20 14:46 Dose: 40 mg Documented by: Piperacillin Sod/Tazobactam (Sod 2.25 gm/ Dextrose) 50 mls @ 100 mls/hr IVPB Q8H-IV [facility]; Protocol Last Admin: 05/19/20 09:49 Dose: 100 mls/hr Documented by: Insulin Aspart (Novolog Vial Sliding Scale -) 1 vial SQ ACHS [facility]; Protocol Last Admin: 05/19/20 06:20 Dose: 4 units Documented by: Insulin Detemir (Levemir Vial) 10 units SQ HS [facility] Last Admin: 05/18/20 21:52 Dose: Not Given Documented by: Insulin Detemir (Levemir Vial) 32 units SQ AM [facility] Last Admin: 05/19/20 06:22 Dose: Not Given Documented by: Metoprolol Tartrate (Lopressor -) 25 mg PO BID [facility] Last Admin: 05/19/20 09:49 Dose: 25 mg Documented by: Miscellaneous (Lidoderm Patch Removal) 1 each MC DAILY@2200 [facility] Stop: 05/19/20 12:12 Last Admin: 05/19/20 09:49 Dose: 1 each Documented by: Torsemide (Demadex -) 80 mg PO DAILY@0600 [facility] Last Admin: 05/19/20 06:20 Dose: 80 mg Documented by: - Objective Vital Signs: Vital Signs Temperature 98.0 F 05/19/20 06:00 Pulse Rate 87 05/19/20 06:00 Respiratory Rate 20 05/19/20 06:00 Blood Pressure 164/86 05/19/20 06:00 O2 Sat by Pulse Oximetry (%) 99 05/19/20 06:00 Eyes: Yes: WNL, Conjunctiva Clear, EOM Intact HENT: Yes: WNL, Atraumatic, Normocephalic Neck: Yes: WNL, Supple, Trachea Midline Cardiovascular: Yes: WNL, Regular Rate and Rhythm Respiratory: Yes: WNL, Regular, CTA Bilaterally Gastrointestinal: Yes: WNL, Normal Bowel Sounds Genitourinary: Yes: WNL Musculoskeletal: Yes: WNL Extremities: Yes: Amputation Edema: No Integumentary: Yes: WNL Neurological: Yes: WNL, Alert, Oriented ...Motor Strength: WNL Psychiatric: Yes: WNL Labs: CBC, BMP 05/17/20 06:20 05/19/20 06:05 Problem List - Problems (1) Acute on chronic renal failure Code(s): N17.9 - ACUTE KIDNEY FAILURE, UNSPECIFIED; N18.9 - CHRONIC KIDNEY DISEASE, UNSPECIFIED Qualifiers: Acute renal failure type: unspecified Chronic kidney disease stage: unspecified stage Qualified Code(s): N17.9 - Acute kidney failure, unspecified; N18.9 - Chronic kidney disease, unspecified (2) CHF (congestive heart failure) Code(s): I50.9 - HEART FAILURE, UNSPECIFIED Qualifiers: Heart failure type: unspecified Heart failure chronicity: unspecified Qualified Code(s): I50.9 - Heart failure, unspecified (3) Elevated liver enzymes Code(s): R74.8 - ABNORMAL LEVELS OF OTHER SERUM ENZYMES (4) Right lower lobe pneumonia Code(s): J18.9 - PNEUMONIA, UNSPECIFIED ORGANISM Qualifiers: Pneumonia type: due to unspecified organism Qualified Code(s): J18.9 - Pneumonia, unspecified organism Assessment/Plan mp; ECHO: moderately decreased LVEF; + LVH , infiltrative cardiomyopathy, EKG low voltage: r/o Amyloidosis Anasarca systolic CHF elevated TNIs EKG: NSR: ? old anterior DC; nonspecific T wave inferolateral changes, improving DM s/p BKA Morbid obesity HLP TONIA UTI no DVT Plan: Uncontrolled HTN will start Amlodipin 5 QD ABX Amyloidosis w/u DVT plx F/u renal w/u (on Furosemide IV bid: 80 mg am/40 mg pm; ARB held). F/u prior cardiac w/u for CAD
[2020-05-19] MEDS ORDERED: LIDOCAINE PATCH REMOVAL MC SCH (10:30)
--- NOTE | 2020-05-19 10:56 | PN ---
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, Physician History of Present Illness: stable no new issues - Current Medication List Current Medications: Active Medications Amlodipine Besylate (Norvasc -) 5 mg PO DAILY [facility] Last Admin: 05/19/20 09:49 Dose: 5 mg Documented by: Aspirin (Ecotrin -) 81 mg PO DAILY [facility] Last Admin: 05/19/20 09:49 Dose: 81 mg Documented by: Collagenase (Santyl -) 1 applic TP DAILY [facility]; Protocol Last Admin: 05/19/20 09:49 Dose: Not Given Documented by: Ferrous Sulfate (Feosol -) 325 mg PO DAILY@0800 [facility] Last Admin: 05/19/20 08:30 Dose: 325 mg Documented by: Furosemide (Lasix Injection -) 40 mg IVPUSH DAILY@1400 [facility] Last Admin: 05/18/20 14:46 Dose: 40 mg Documented by: Piperacillin Sod/Tazobactam (Sod 2.25 gm/ Dextrose) 50 mls @ 100 mls/hr IVPB Q8H-IV [facility]; Protocol Last Admin: 05/19/20 09:49 Dose: 100 mls/hr Documented by: Insulin Aspart (Novolog Vial Sliding Scale -) 1 vial SQ [facility]; Protocol Last Admin: 05/19/20 06:20 Dose: 4 units Documented by: Insulin Detemir (Levemir Vial) 10 units SQ HS [facility] Last Admin: 05/18/20 21:52 Dose: Not Given Documented by: Insulin Detemir (Levemir Vial) 32 units SQ AM [facility] Last Admin: 05/19/20 06:22 Dose: Not Given Documented by: Metoprolol Tartrate (Lopressor -) 25 mg PO BID [facility] Last Admin: 05/19/20 09:49 Dose: 25 mg Documented by: Miscellaneous (Lidoderm Patch Removal) 1 each MC DAILY@2200 [facility] Stop: 05/19/20 12:12 Last Admin: 05/19/20 09:49 Dose: 1 each Documented by: Torsemide (Demadex -) 80 mg PO DAILY@0600 [facility] Last Admin: 05/19/20 06:20 Dose: 80 mg Documented by: - Objective Vital Signs: Vital Signs Temperature 98.0 F 05/19/20 06:00 Pulse Rate 87 05/19/20 06:00 Respiratory Rate 20 05/19/20 06:00 Blood Pressure 164/86 05/19/20 06:00 O2 Sat by Pulse Oximetry (%) 99 05/19/20 06:00 Constitutional: Yes: No Distress, Calm Cardiovascular: Yes: S1, S2 Respiratory: Yes: Regular, CTA Bilaterally Gastrointestinal: Yes: Normal Bowel Sounds, Soft Musculoskeletal: Yes: WNL Extremities: Yes: Other Neurological: Yes: Alert, Oriented Psychiatric: Yes: Alert, Oriented Labs: CBC, BMP 05/17/20 06:20 05/19/20 06:05 Assessment/Plan 70 year old woman with history of CHF, DM type 2, chronic osteomylitis, BKA, hypertension, hyperlipidiemia who presented from the NH with arm swelling and found to have anasarca, CHF and gram negative bacteremia. 1. Acute kidney injury 2. CHF/Anasarca 3. Gram negative Bacteremia/UTI 4. Hypertension 5. Hyperlipidemia 6 gm negative bacteremia plan continue current mgmt await for identification of the organism continue abx repeat blood negative so far rest as per the team
[2020-05-19] MEDS ORDERED: amLODIPine BESYLATE 5 MG TABLET (FP) PO ONE (12:12)
--- NOTE | 2020-05-19 12:15 | PN ---
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, Physician Chief Complaint: Acute kidney injury History of Present Illness: Seen and examined at the bedside awake and alert offers no acute complaints no sob, cp, fever, chills, N/V/D swelling is much better - Current Medication List Current Medications: Active Medications Amlodipine Besylate (Norvasc -) 5 mg PO ONCE ONE Stop: 05/19/20 12:13 Amlodipine Besylate (Norvasc -) 10 mg PO DAILY [facility] Aspirin (Ecotrin -) 81 mg PO DAILY [facility] Last Admin: 05/19/20 09:49 Dose: 81 mg Documented by: Collagenase (Santyl -) 1 applic TP DAILY [facility]; Protocol Last Admin: 05/19/20 09:49 Dose: Not Given Documented by: Ferrous Sulfate (Feosol -) 325 mg PO DAILY@0800 [facility] Last Admin: 05/19/20 08:30 Dose: 325 mg Documented by: Furosemide (Lasix Injection -) 40 mg IVPUSH DAILY@1400 [facility] Last Admin: 05/18/20 14:46 Dose: 40 mg Documented by: Piperacillin Sod/Tazobactam (Sod 2.25 gm/ Dextrose) 50 mls @ 100 mls/hr IVPB Q8H-IV [facility]; Protocol Last Admin: 05/19/20 09:49 Dose: 100 mls/hr Documented by: Insulin Aspart (Novolog Vial Sliding Scale -) 1 vial SQ ACHS [facility]; Protocol Last Admin: 05/19/20 11:49 Dose: 7 units Documented by: Insulin Detemir (Levemir Vial) 10 units SQ HS [facility] Last Admin: 05/18/20 21:52 Dose: Not Given Documented by: Insulin Detemir (Levemir Vial) 32 units SQ AM [facility] Last Admin: 05/19/20 06:22 Dose: Not Given Documented by: Metoprolol Tartrate (Lopressor -) 25 mg PO BID [facility] Last Admin: 05/19/20 09:49 Dose: 25 mg Documented by: Torsemide (Demadex -) 80 mg PO DAILY@0600 [facility] Last Admin: 05/19/20 06:20 Dose: 80 mg Documented by: - Objective Vital Signs: Vital Signs Temperature 97.8 F 05/19/20 10:00 Pulse Rate 88 05/19/20 10:00 Respiratory Rate 18 05/19/20 10:00 Blood Pressure 181/92 H 05/19/20 10:00 O2 Sat by Pulse Oximetry (%) 97 05/19/20 10:00 Constitutional: Yes: No Distress, Calm HENT: Yes: Atraumatic Neck: Yes: Supple Cardiovascular: Yes: Regular Rate and Rhythm Respiratory: Yes: Regular, Diminished Gastrointestinal: Yes: Soft, Abdomen, Obese. No: Tenderness Extremities: Yes: Amputation. No: Cyanosis Edema: Yes Edema: LLE: Trace, RLE: Trace Neurological: Yes: Alert Labs: CBC, BMP 05/17/20 06:20 05/19/20 06:05 Assessment/Plan 70 year old woman with history of CHF, DM type 2, chronic osteomylitis, BKA, hypertension, hyperlipidiemia who presented from the OR with arm swelling and found to have anasarca, CHF and gram negative bacteremia. 1. Acute kidney injury 2. CHF/Anasarca 3. Gram negative Bacteremia/UTI 4. Hypertension 5. Hyperlipidemia Renal function improved and stable No overt electrolyte or acid/base disturbance noted. Continue Torsemide 80mg daily Low sodium diet Trend renal function and electrolytes while inpatient Abx as per ID Thank you Joaquín Berry DO
[2020-05-19] MEDS: FUROSEMIDE 40 MG/4 ML INJECTABLE VIAL IVPUSH SCH (13:35)
--- NOTE | 2020-05-19 14:06 | PN ---
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 (short form) - Note 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: Attending Surgeon CTSP for evaluation for an abdominal wall fat pad bx.; patient seen and evaluated with VALERIE Robles ; chart reviewed; d/w the patient the risks/benefits/technique and alternatives to the bx. and she desires to avoid any unnecessary invasive procedures; I advise she discuss this w/the primary team caring for her. Yovani Covarrubias MD FACS
[2020-05-19] MEDS ORDERED: SENNOSIDES 8.6MG TABLET (FP) PO PRN (18:33)
[2020-05-19] MEDS: METOPROLOL TARTRATE 50 MG TABLET (FP) PO SCH ×3 (19:00→21:55)
[2020-05-19] MEDS ORDERED: LIDOCAINE 5% TOPICAL PATCH TP ONE (22:00)
[2020-05-19] MEDS: DOCUSATE SODIUM 100 MG CAPSULE (FP) PO SCH (22:01)
[2020-05-20] MEDS ORDERED: DEXTROSE 5%-WATER - 50 ML IVPB ONE ×3 (01:04→16:36)
[2020-05-20] MEDS ORDERED: PIPERACILLIN/TAZOBACTAM 2.25 GM VIAL IVPB ONE ×3 (01:04→16:36)
[2020-05-20] MEDS: PIPERACILLIN/TAZOB 2.25 GM 2.25 GM in DEXTROSE 5%-WATER - 50 ML IVPB SCH ×3 (01:18→17:08)
[2020-05-20] MEDS: INSULIN (LEVEMIR) 100 UNITS/ML UNITS SQ SCH ×2 (06:08→21:21)
[2020-05-20] MEDS: TORSEMIDE 20 MG TABLET (FP) PO SCH (06:08)
[2020-05-20] MEDS: INSULIN SLIDING SCALE (NOVOLOG) 1 VIAL SQ SCH ×4 (06:08→21:56)
[2020-05-20 08:07] LABS: IGA IMMUNOGLOBULIN 618 mg/dL (87-352); IGG QN IMMUNOGLOBULIN 2013 mg/dL (586-1602); IGM QN SERUM 142 mg/dL (26-217)
[2020-05-20 08:17] LABS: BLOOD UREA NITROGEN 25.5 mg/dL (7-18); POTASSIUM 3.2 mmol/L (3.5-5.1)
[2020-05-20 08:18] LABS: CREATININE 1.4 mg/dL (0.55-1.3)
[2020-05-20] MEDS ORDERED: POTASSIUM CHLORIDE TABS 20 MEQ TABLET.ER (FP) PO ONE (08:29)
--- NOTE | 2020-05-20 08:33 | PN ---
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, Physician - Current Medication List Current Medications: Active Medications Amlodipine Besylate (Norvasc -) 10 mg PO DAILY [facility] Aspirin (Ecotrin -) 81 mg PO DAILY [facility] Last Admin: 05/19/20 09:49 Dose: 81 mg Documented by: Collagenase (Santyl -) 1 applic TP DAILY [facility]; Protocol Last Admin: 05/19/20 09:49 Dose: Not Given Documented by: Docusate Sodium (Colace -) 100 mg PO BID [facility] Last Admin: 05/19/20 22:01 Dose: 100 mg Documented by: Ferrous Sulfate (Feosol -) 325 mg PO DAILY@0800 [facility] Last Admin: 05/19/20 08:30 Dose: 325 mg Documented by: Piperacillin Sod/Tazobactam (Sod 2.25 gm/ Dextrose) 50 mls @ 100 mls/hr IVPB Q8H-IV [facility]; Protocol Last Admin: 05/20/20 01:18 Dose: 100 mls/hr Documented by: Insulin Aspart (Novolog Vial Sliding Scale -) 1 vial SQ ACHS [facility]; Protocol Last Admin: 05/20/20 06:08 Dose: 5 units Documented by: Insulin Detemir (Levemir Vial) 10 units SQ HS [facility] Last Admin: 05/19/20 22:01 Dose: Not Given Documented by: Insulin Detemir (Levemir Vial) 32 units SQ AM [facility] Last Admin: 05/20/20 06:08 Dose: Not Given Documented by: Metoprolol Tartrate (Lopressor -) 50 mg PO BID [facility] Last Admin: 05/19/20 21:55 Dose: Not Given Documented by: Miscellaneous (Lidoderm Patch Removal) 1 each MC DAILY@1000 ONE Stop: 05/20/20 10:01 Potassium Chloride (K-Dur -) 20 meq PO DAILY [facility] Potassium Chloride (K-Dur -) 20 meq PO ONCE ONE Stop: 05/20/20 08:30 Senna (Senna -) 2 tab PO HS PRN PRN Reason: CONSTIPATION Torsemide (Demadex -) 80 mg PO DAILY@0600 [facility] Last Admin: 05/20/20 06:08 Dose: 80 mg Documented by: - Objective Vital Signs: Vital Signs Temperature 98.5 F 05/20/20 06:00 Pulse Rate 89 05/20/20 06:00 Respiratory Rate 18 05/20/20 06:00 Blood Pressure 165/86 05/20/20 06:00 O2 Sat by Pulse Oximetry (%) 100 05/19/20 22:00 Cardiovascular: Yes: Regular Rate and Rhythm Respiratory: Yes: Regular, CTA Bilaterally Gastrointestinal: Yes: Normal Bowel Sounds, Soft Extremities: Yes: Amputation Labs: CBC, BMP 05/17/20 06:20 05/20/20 06:00 Problem List - Problems (1) Bacteremia Assessment/Plan: IV ABX--ID FOLLOW UP ID ON CASE PULM CONSULT [facility] 05/14/20 09:56 Blood - Peripheral Venous Blood Culture - Preliminary NO GROWTH OBTAINED AFTER 48 HOURS, INCUBATION TO CONTINUE FOR 3 DAYS. 05/14/20 10:25 Blood - Peripheral Venous Blood Culture - Preliminary NO GROWTH OBTAINED AFTER 48 HOURS, INCUBATION TO CONTINUE FOR 3 DAYS. 05/11/20 16:45 Blood - Peripheral Venous Blood Culture - Final Citrobacter Koseri 05/11/20 16:45 Blood - Peripheral Venous Blood Culture - Preliminary Lactose Fermenting Neg Bacilli Lactose Fermenting Neg Bacilli#2 Code(s): R78.81 - BACTEREMIA (2) Acute on chronic renal failure Assessment/Plan: MONITOR ON CURRENT MEDS RENAL ON CASE US NOTED Laboratory Tests 05/15/20 05/16/20 05/17/20 10:05 06:15 06:20 BUN 41.6 H 40.2 H 35.6 H Creatinine 1.9 H 1.7 H 1.7 H Abnormal Lab Results 05/19/20 06:05 Carbon Dioxide 34 H Anion Gap 5 L BUN 30.8 H Creatinine 1.4 H Random Glucose 204 H ALT 147 H Alkaline Phosphatase 312 H Albumin 2.1 L Abnormal Lab Results 05/19/20 05/20/20 06:05 06:00 Potassium 3.2 L Chloride 97 L Carbon Dioxide 36 H Anion Gap 6 L BUN 25.5 H Creatinine 1.4 H Random Glucose 200 H IgG 2013 H IgA 618 H Code(s): N17.9 - ACUTE KIDNEY FAILURE, UNSPECIFIED; N18.9 - CHRONIC KIDNEY DISEASE, UNSPECIFIED Qualifiers: Acute renal failure type: unspecified Chronic kidney disease stage: unspecified stage Qualified Code(s): N17.9 - Acute kidney failure, unspecified; N18.9 - Chronic kidney disease, unspecified (3) CHF (congestive heart failure) Assessment/Plan: ON IV Lasix BID--NOW ON DEMADEX 80 QD EF 40% CARDIO ON BOARD FOLLOW LABS Code(s): I50.9 - HEART FAILURE, UNSPECIFIED Qualifiers: Heart failure type: unspecified Heart failure chronicity: unspecified Qualified Code(s): I50.9 - Heart failure, unspecified (4) Right lower lobe pneumonia Assessment/Plan: IV ABX PULM CONSULT Appreciated Code(s): J18.9 - PNEUMONIA, UNSPECIFIED ORGANISM Qualifiers: Pneumonia type: due to unspecified organism Qualified Code(s): J18.9 - Pneumonia, unspecified organism (5) Elevated liver enzymes Assessment/Plan: Follow labs dc tylenol abd Lipitor gi consult appreciated Laboratory Tests 05/15/20 05/15/20 05/16/20 10:05 10:05 06:15 AST 220 H 218 H 126 H ALT 529 H 536 H 400 H Alkaline Phosphatase 416 H 416 H 376 H Hepatic Panel Total Bilirubin 0.9 mg/dL (0.2-1) 05/17/20 06:20 Direct Bilirubin 0.4 mg/dL (0.0-0.2) H 05/15/20 10:05 AST 62 U/L (15-37) H 05/17/20 06:20 ALT 276 U/L (13-61) H 05/17/20 06:20 Alkaline Phosphatase 361 U/L (45-117) H 05/17/20 06:20 Albumin 2.1 g/dl (3.4-5.0) L 05/17/20 06:20 Hepatic Panel Total Bilirubin 0.8 mg/dL (0.2-1) 05/19/20 06:05 Direct Bilirubin 0.2 mg/dL (0.0-0.2) 05/19/20 06:05 AST 28 U/L (15-37) 05/19/20 06:05 ALT 147 U/L (13-61) H 05/19/20 06:05 Alkaline Phosphatase 312 U/L (45-117) H 05/19/20 06:05 Albumin 2.1 g/dl (3.4-5.0) L 05/19/20 06:05 Code(s): R74.8 - ABNORMAL LEVELS OF OTHER SERUM ENZYMES (6) Pleural effusion Assessment/Plan: on lasix and abx monitor Code(s): J90 - PLEURAL EFFUSION, NOT ELSEWHERE CLASSIFIED (7) Anemia Assessment/Plan: work up ordered gi consult Laboratory Tests 05/13/20 05/14/20 08:20 10:25 Hgb 10.6 L 9.5 L labs pending Code(s): D64.9 - ANEMIA, UNSPECIFIED (8) Amyloid disease Assessment/Plan: hem noted --for fat pad biopsy--PT REFUSING AT THIS TIME surgical consult pending Code(s): E85.9 - AMYLOIDOSIS, UNSPECIFIED
[2020-05-20] MEDS: ASPIRIN COATED 81 MG TABLET.EC PO SCH (09:15)
[2020-05-20] MEDS: FERROUS SO4 325 MG TABLET (FP) PO SCH (09:15)
[2020-05-20] MEDS: DOCUSATE SODIUM 100 MG CAPSULE (FP) PO SCH ×2 (09:15→21:18)
[2020-05-20] MEDS: POTASSIUM CHLORIDE TABS 20 MEQ TABLET.ER (FP) PO SCH (09:15)
[2020-05-20] MEDS: METOPROLOL TARTRATE 50 MG TABLET (FP) PO SCH ×2 (09:15→21:18)
[2020-05-20] MEDS: amLODIPine BESYLATE 5 MG TABLET (FP) PO SCH (09:15)
[2020-05-20] MEDS ORDERED: LIDOCAINE PATCH REMOVAL MC ONE (10:00)
[2020-05-20] MEDS: COLLAGENASE CLOSTRIDIUM HIST. 30 GRAMS TUBE TP SCH (11:04)
--- NOTE | 2020-05-20 11:29 | PN ---
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, Physician History of Present Illness: stable no new issues - Current Medication List Current Medications: Active Medications Amlodipine Besylate (Norvasc -) 10 mg PO DAILY [facility] Last Admin: 05/20/20 09:15 Dose: 10 mg Documented by: Aspirin (Ecotrin -) 81 mg PO DAILY [facility] Last Admin: 05/20/20 09:15 Dose: 81 mg Documented by: Collagenase (Santyl -) 1 applic TP DAILY [facility]; Protocol Last Admin: 05/20/20 11:04 Dose: Not Given Documented by: Docusate Sodium (Colace -) 100 mg PO BID [facility] Last Admin: 05/20/20 09:15 Dose: 100 mg Documented by: Ferrous Sulfate (Feosol -) 325 mg PO DAILY@0800 [facility] Last Admin: 05/20/20 09:15 Dose: 325 mg Documented by: Piperacillin Sod/Tazobactam (Sod 2.25 gm/ Dextrose) 50 mls @ 100 mls/hr IVPB Q8H-IV [facility]; Protocol Last Admin: 05/20/20 11:01 Dose: 100 mls/hr Documented by: Insulin Aspart (Novolog Vial Sliding Scale -) 1 vial SQ ACHS [facility]; Protocol Last Admin: 05/20/20 06:08 Dose: 5 units Documented by: Insulin Detemir (Levemir Vial) 10 units SQ HS [facility] Last Admin: 05/19/20 22:01 Dose: Not Given Documented by: Insulin Detemir (Levemir Vial) 32 units SQ AM [facility] Last Admin: 05/20/20 06:08 Dose: Not Given Documented by: Metoprolol Tartrate (Lopressor -) 50 mg PO BID [facility] Last Admin: 05/20/20 09:15 Dose: 50 mg Documented by: Potassium Chloride (K-Dur -) 20 meq PO DAILY [facility] Last Admin: 05/20/20 09:15 Dose: 20 meq Documented by: Senna (Senna -) 2 tab PO HS PRN PRN Reason: CONSTIPATION Torsemide (Demadex -) 80 mg PO DAILY@0600 [facility] Last Admin: 05/20/20 06:08 Dose: 80 mg Documented by: - Objective Vital Signs: Vital Signs Temperature 98.1 F 05/20/20 09:59 Pulse Rate 89 05/20/20 09:59 Respiratory Rate 18 05/20/20 09:59 Blood Pressure 142/74 05/20/20 09:59 O2 Sat by Pulse Oximetry (%) 98 05/20/20 09:59 Constitutional: Yes: No Distress, Calm, Obese Cardiovascular: Yes: S1, S2 Respiratory: Yes: Regular, CTA Bilaterally Gastrointestinal: Yes: Normal Bowel Sounds Musculoskeletal: Yes: WNL Extremities: Yes: WNL Neurological: Yes: Alert, Oriented Psychiatric: Yes: Alert, Oriented Labs: CBC, BMP 05/17/20 06:20 05/20/20 06:00 Assessment/Plan 70 year old woman with history of CHF, DM type 2, chronic os teomylitis, BKA, hypertension, hyperlipidiemia who presented from the [place] with arm swelling and found to have anasarca, CHF and gram negative bacteremia. 1. Acute kidney injury 2. CHF/Anasarca 3. Gram negative Bacteremia/UTI 4. Hypertension 5. Hyperlipidemia 6 gm negative bacteremia plan continue current mgmt await for identification of the organism continue abx repeat blood negative so far rest as per the team will deeescalate abx tomorrow
--- NOTE | 2020-05-20 13:05 | PN ---
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 (short form) - Note 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: PULMONARY States breathing is improving. No cough or chest pain. Vital Signs Period Temp Pulse Resp BP Sys/Dobson Pulse Ox Last 24 Hr 97.9 F-99.0 F 87-99 16-18 142-174/74-107 98-100 Intake & Output 05/17/20 05/18/20 05/19/20 05/20/20 23:59 23:59 23:59 23:59 Intake Total 1230 1260 1420 1180 Output Total 4600 4000 2800 700 Balance -3370 -2740 -1380 480 Weight 83.064 kg 76.022 kg Gen: NAD at rest Heart: RRR Lung: decreased breath sounds at the bases Abd: soft, nontender Ext: L BKA, + edema CBC, BMP 05/17/20 06:20 05/20/20 06:00 Active Medications Amlodipine Besylate (Norvasc -) 10 mg PO DAILY [facility] Last Admin: 05/20/20 09:15 Dose: 10 mg Documented by: Aspirin (Ecotrin -) 81 mg PO DAILY [facility] Last Admin: 05/20/20 09:15 Dose: 81 mg Documented by: Collagenase (Santyl -) 1 applic TP DAILY [facility]; Protocol Last Admin: 05/20/20 11:04 Dose: Not Given Documented by: Docusate Sodium (Colace -) 100 mg PO BID [facility] Last Admin: 05/20/20 09:15 Dose: 100 mg Documented by: Ferrous Sulfate (Feosol -) 325 mg PO DAILY@0800 [facility] Last Admin: 05/20/20 09:15 Dose: 325 mg Documented by: Piperacillin Sod/Tazobactam (Sod 2.25 gm/ Dextrose) 50 mls @ 100 mls/hr IVPB Q8H-IV [facility]; Protocol Last Admin: 05/20/20 11:01 Dose: 100 mls/hr Documented by: Insulin Aspart (Novolog Vial Sliding Scale -) 1 vial SQ ACHS [facility]; Protocol Last Admin: 05/20/20 11:38 Dose: 5 units Documented by: Insulin Detemir (Levemir Vial) 10 units SQ HS [facility] Last Admin: 05/19/20 22:01 Dose: Not Given Documented by: Insulin Detemir (Levemir Vial) 32 units SQ AM [facility] Last Admin: 05/20/20 06:08 Dose: Not Given Documented by: Metoprolol Tartrate (Lopressor -) 50 mg PO BID [facility] Last Admin: 05/20/20 09:15 Dose: 50 mg Documented by: Potassium Chloride (K-Dur -) 20 meq PO DAILY [facility] Last Admin: 05/20/20 09:15 Dose: 20 meq Documented by: Senna (Senna -) 2 tab PO HS PRN PRN Reason: CONSTIPATION Torsemide (Demadex -) 80 mg PO DAILY@0600 [facility] Last Admin: 05/20/20 06:08 Dose: 80 mg Documented by: A/P Acute on Chronic Diastolic Heart Failure Pleural Effusion UTI Gram Negative Bacteremia Acute Kidney Injury HTN DM Hyperlipidemia - continue torsemide - monitor urine output, creatinine - daily weights - O2 to keep Spo2 >90% - continue antibiotics - DVT prophylaxis
--- NOTE | 2020-05-20 14:33 | PN ---
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, Physician Chief Complaint: Acute kidney injury History of Present Illness: Seen and examined at the bedside awake and alert Reports feeling better. Reports that her shortness of breath and swelling is substantially improved. Denies any chest pain, [place] pain, nausea, vomiting or diarrhea. Making a good amount of urine. - Current Medication List Current Medications: Active Medications Amlodipine Besylate (Norvasc -) 10 mg PO DAILY [facility] Last Admin: 05/20/20 09:15 Dose: 10 mg Documented by: Aspirin (Ecotrin -) 81 mg PO DAILY [facility] Last Admin: 05/20/20 09:15 Dose: 81 mg Documented by: Collagenase (Santyl -) 1 applic TP DAILY [facility]; Protocol Last Admin: 05/20/20 11:04 Dose: Not Given Documented by: Docusate Sodium (Colace -) 100 mg PO BID [facility] Last Admin: 05/20/20 09:15 Dose: 100 mg Documented by: Ferrous Sulfate (Feosol -) 325 mg PO DAILY@0800 [facility] Last Admin: 05/20/20 09:15 Dose: 325 mg Documented by: Piperacillin Sod/Tazobactam (Sod 2.25 gm/ Dextrose) 50 mls @ 100 mls/hr IVPB Q8H-IV [facility]; Protocol Last Admin: 05/20/20 11:01 Dose: 100 mls/hr Documented by: Insulin Aspart (Novolog Vial Sliding Scale -) 1 vial SQ ACHS [facility]; Protocol Last Admin: 05/20/20 11:38 Dose: 5 units Documented by: Insulin Detemir (Levemir Vial) 10 units SQ HS [facility] Last Admin: 05/19/20 22:01 Dose: Not Given Documented by: Insulin Detemir (Levemir Vial) 32 units SQ AM [facility] Last Admin: 05/20/20 06:08 Dose: Not Given Documented by: Metoprolol Tartrate (Lopressor -) 50 mg PO BID [facility] Last Admin: 05/20/20 09:15 Dose: 50 mg Documented by: Potassium Chloride (K-Dur -) 20 meq PO DAILY [facility] Last Admin: 05/20/20 09:15 Dose: 20 meq Documented by: Senna (Senna -) 2 tab PO HS PRN PRN Reason: CONSTIPATION Torsemide (Demadex -) 80 mg PO DAILY@0600 [facility] Last Admin: 05/20/20 06:08 Dose: 80 mg Documented by: - Objective Vital Signs: Vital Signs Temperature 98.2 F 05/20/20 14:00 Pulse Rate 82 05/20/20 14:00 Respiratory Rate 16 05/20/20 14:00 Blood Pressure 116/56 L 05/20/20 14:00 O2 Sat by Pulse Oximetry (%) 98 05/20/20 09:59 Constitutional: Yes: No Distress, Calm HENT: Yes: Atraumatic Neck: Yes: Supple Cardiovascular: Yes: Regular Rate and Rhythm Respiratory: Yes: Regular Gastrointestinal: Yes: Soft Extremities: No: Cool, Cyanosis Edema: Yes Edema: LLE: Trace, RLE: Trace Neurological: Yes: Alert, Oriented Labs: CBC, BMP 05/17/20 06:20 05/20/20 06:00 Assessment/Plan 70 year old woman with history of CHF, DM type 2, chronic osteomylitis, BKA, hypertension, hyperlipidiemia who presented [place] the [place] with arm swelling and found to have anasarca, CHF and gram negative bacteremia. 1. Acute kidney injury 2. CHF/Anasarca 3. Gram negative Bacteremia/UTI 4. Hypertension 5. Hyperlipidemia 6. Hypokalemia in the setting of loop diuretics. Renal function improved and stable No overt electrolyte or acid/base disturbance noted. Continue Torsemide 80mg daily For fluid management. Low sodium diet Supplement potassium orally today, repeat in a.m. if remains less than 3.5 may need daily supplementation. Trend renal function and electrolytes while inpatient Abx as per ID Discharge planning when stable as per primary team. Thank you Joaquín Berry DO
--- NOTE | 2020-05-20 21:57 | PN ---
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, Physician Chief Complaint: Pt A&Ox3; no chest pain or dypsnea. History of Present Illness: Ms. Figueroa is a 70y/o black woman (b. [place]), with a PMH of Uncontrolled DM, Diabetic foot ulcer on R. foot, Chronic osteomyelitis of right foot, Diabetic neuropathy, Left leg BKA, morbid obesity, OA, Iron deficiency anemia, HLD, HTN, Charcot's joint, ESBL resistance and CHF who [facility] with AMS and arm swelling. Pt reports R arm and face swelling. The patient notes she has had sob and overall swelling (abd, legs, arms) for the past few weeks, also notes increasingly sob. denies any fever/chills, cp, n/v, diaphoresis, cough, dairhrea, dysuria. - Current Medication List Current Medications: Active Medications Amlodipine Besylate (Norvasc -) 10 mg PO DAILY [facility] Last Admin: 05/20/20 09:15 Dose: 10 mg Documented by: Aspirin (Ecotrin -) 81 mg PO DAILY [facility] Last Admin: 05/20/20 09:15 Dose: 81 mg Documented by: Collagenase (Santyl -) 1 applic TP DAILY [facility]; Protocol Last Admin: 05/20/20 11:04 Dose: Not Given Documented by: Docusate Sodium (Colace -) 100 mg PO BID [facility] Last Admin: 05/20/20 21:18 Dose: 100 mg Documented by: Ferrous Sulfate (Feosol -) 325 mg PO DAILY@0800 [facility] Last Admin: 05/20/20 09:15 Dose: 325 mg Documented by: Piperacillin Sod/Tazobactam (Sod 2.25 gm/ Dextrose) 50 mls @ 100 mls/hr IVPB Q8H-IV [facility]; Protocol Last Admin: 05/20/20 17:08 Dose: 100 mls/hr Documented by: Insulin Aspart (Novolog Vial Sliding Scale -) 1 vial SQ ACHS [facility]; Protocol Last Admin: 05/20/20 17:03 Dose: 5 units Documented by: Insulin Detemir (Levemir Vial) 10 units SQ HS [facility] Last Admin: 05/20/20 21:21 Dose: Not Given Documented by: Insulin Detemir (Levemir Vial) 32 units SQ AM [facility] Last Admin: 08/13/20 06:08 Dose: Not Given Documented by: Metoprolol Tartrate (Lopressor -) 50 mg PO BID [facility] Last Admin: 05/20/20 21:18 Dose: 50 mg Documented by: Potassium Chloride (K-Dur -) 20 meq PO DAILY [facility] Last Admin: 05/20/20 09:15 Dose: 20 meq Documented by: Senna (Senna -) 2 tab PO HS PRN PRN Reason: CONSTIPATION Torsemide (Demadex -) 80 mg PO DAILY@0600 [facility] Last Admin: 05/20/20 06:08 Dose: 80 mg Documented by: - Objective Vital Signs: Vital Signs Temperature 98.2 F 05/20/20 17:36 Pulse Rate 77 05/20/20 17:36 Respiratory Rate 18 05/20/20 17:36 Blood Pressure 154/78 05/20/20 17:36 O2 Sat by Pulse Oximetry (%) 98 05/20/20 17:36 Constitutional: Yes: Calm Eyes: Yes: WNL HENT: Yes: WNL Neck: Yes: WNL Cardiovascular: Yes: S1, S2 Respiratory: Yes: WNL Gastrointestinal: Yes: Soft ...Rectal Exam: Yes: Deferred Genitourinary: No: Anuria Breast(s): Yes: WNL Musculoskeletal: Yes: Muscle Weakness Extremities: Yes: Cool, Other (Left BKA; right foot ulcer) Edema: No Peripheral Pulses WNL: No Integumentary: Yes: Other Wound/Incision: Yes: Dressing Dry and Intact Neurological: Yes: Alert, Oriented, Weakness Psychiatric: Yes: Alert, Oriented Labs: CBC, BMP 05/17/20 06:20 05/20/20 06:00 - ....Imaging Chest X-ray: Image Reviewed EKG: Image Reviewed Assessment/Plan Imp; ECHO: moderately decreased LVEF; + LVH , infiltrative cardiomyopathy, EKG low voltage: r/o Amyloidosis acute/?chronic systolic/diastolic CHF BNP>16,000; congestive changes, pleural effusion on CXR Anasarca elevated TNIs elevated LFTs EKG: NSR: ? old anterior [place]; nonspecific T wave inferolateral changes, improving DM s/p BKA Morbid obesity HLP TONIA UTI no DVT anemia Plan: HTN: on metoprolol and amlodipine. ABX Amyloidosis w/u in progress; discussed with Dr. Tavarez regarding biopsies (plan for abdominal fatty tissue). DVT plx F/u renal w/u (on Furosemide IV bid: 80 mg am/40 mg pm; ARB held). F/u prior cardiac w/u for CAD Cardiac Amyloidosis w/u; will plan on f/u with heart failure/cardiomyopathy gr oup in [facility].
[2020-05-21] MEDS ORDERED: DEXTROSE 5%-WATER - 50 ML IVPB ONE ×2 (01:20→08:19)
[2020-05-21] MEDS ORDERED: PIPERACILLIN/TAZOBACTAM 2.25 GM VIAL IVPB ONE ×2 (01:20→08:19)
[2020-05-21] MEDS: PIPERACILLIN/TAZOB 2.25 GM 2.25 GM in DEXTROSE 5%-WATER - 50 ML IVPB SCH ×2 (02:00→09:07)
[2020-05-21] MEDS: TORSEMIDE 20 MG TABLET (FP) PO SCH (06:05)
[2020-05-21] MEDS: INSULIN SLIDING SCALE (NOVOLOG) 1 VIAL SQ SCH ×2 (06:36→12:04)
[2020-05-21] MEDS: INSULIN (LEVEMIR) 100 UNITS/ML UNITS SQ SCH (06:59)
--- NOTE | 2020-05-21 08:35 | DS ---
Physical Examination Vital Signs: Vital Signs Temperature 98.7 F 05/21/20 06:00 Pulse Rate 78 05/21/20 06:00 Respiratory Rate 18 05/21/20 06:00 Blood Pressure 158/86 05/21/20 06:00 O2 Sat by Pulse Oximetry (%) 96 05/21/20 02:00 Cardiovascular: Yes: S1, S2 Respiratory: Yes: Regular, CTA Bilaterally Gastrointestinal: Yes: Normal Bowel Sounds, Soft Extremities: Yes: Amputation (left BKA) Edema: No Labs: CBC, BMP 05/17/20 06:20 05/20/20 06:00 Discharge Summary Problems reviewed: Yes Reason For Visit: CHF ELEVATED LIVER ENZYMES RIGHT LOWER LOBE PNEUMO Current Active Problems Acute on chronic renal failure (Acute) Amyloid disease (Acute) Anemia (Acute) Bacteremia (Acute) CHF (congestive heart failure) (Acute) Elevated liver enzymes (Acute) Pleural effusion (Acute) Right lower lobe pneumonia (Acute) Troponin I above reference range (Acute) Hospital Course: - Problems (1) Bacteremia Assessment/Plan: IV ABX--ID FOLLOW UP ID ON CASE PULM CONSULT [facility] 05/14/20 09:56 Blood - Peripheral Venous Blood Culture - Preliminary NO GROWTH OBTAINED AFTER 48 HOURS, INCUBATION TO CONTINUE FOR 3 DAYS. 05/14/20 10:25 Blood - Peripheral Venous Blood Culture - Preliminary NO GROWTH OBTAINED AFTER 48 HOURS, INCUBATION TO CONTINUE FOR 3 DAYS. 05/11/20 16:45 Blood - Peripheral Venous Blood Culture - Final Citrobacter Koseri 05/11/20 16:45 Blood - Peripheral Venous Blood Culture - Preliminary Lactose Fermenting Neg Bacilli Lactose Fermenting Neg Bacilli#2 Code(s): R78.81 - BACTEREMIA (2) Acute on chronic renal failure Assessment/Plan: MONITOR ON CURRENT MEDS RENAL ON CASE US NOTED Laboratory Tests 05/15/20 05/16/20 05/17/20 10:05 06:15 06:20 BUN 41.6 H 40.2 H 35.6 H Creatinine 1.9 H 1.7 H 1.7 H Abnormal Lab Results 05/19/20 06:05 Carbon Dioxide 34 H Anion Gap 5 L BUN 30.8 H Creatinine 1.4 H Random Glucose 204 H ALT 147 H Alkaline Phosphatase 312 H Albumin 2.1 L Abnormal Lab Results 05/19/20 05/20/20 06:05 06:00 Potassium 3.2 L Chloride 97 L Carbon Dioxide 36 H Anion Gap 6 L BUN 25.5 H Creatinine 1.4 H Random Glucose 200 H IgG 2013 H IgA 618 H Code(s): N17.9 - ACUTE KIDNEY FAILURE, UNSPECIFIED; N18.9 - CHRONIC KIDNEY DISEASE, UNSPECIFIED Qualifiers: Acute renal failure type: unspecified Chronic kidney disease stage: unspecified stage Qualified Code(s): N17.9 - Acute kidney failure, unspecified; N18.9 - Chronic kidney disease, unspecified (3) CHF (congestive heart failure) Assessment/Plan: ON IV Lasix BID--NOW ON DEMADEX 80 QD EF 40% CARDIO ON BOARD FOLLOW LABS Code(s): I50.9 - HEART FAILURE, UNSPECIFIED Qualifiers: Heart failure type: unspecified Heart failure chronicity: unspecified Qualified Code(s): I50.9 - Heart failure, unspecified (4) Right lower lobe pneumonia Assessment/Plan: IV ABX PULM CONSULT Appreciated Code(s): J18.9 - PNEUMONIA, UNSPECIFIED ORGANISM Qualifiers: Pneumonia type: due to unspecified organism Qualified Code(s): J18.9 - Pneumonia, unspecified organism (5) Elevated liver enzymes Assessment/Plan: Improving---Follow labs dc tylenol Lipitor on hold till lft normalize gi consult appreciated Laboratory Tests 05/15/20 05/15/20 05/16/20 10:05 10:05 06:15 AST 220 H 218 H 126 H ALT 529 H 536 H 400 H Alkaline Phosphatase 416 H 416 H 376 H Hepatic Panel Total Bilirubin 0.9 mg/dL (0.2-1) 05/17/20 06:20 Direct Bilirubin 0.4 mg/dL (0.0-0.2) H 05/15/20 10:05 AST 62 U/L (15-37) H 05/17/20 06:20 ALT 276 U/L (13-61) H 05/17/20 06:20 Alkaline Phosphatase 361 U/L (45-117) H 05/17/20 06:20 Albumin 2.1 g/dl (3.4-5.0) L 05/17/20 06:20 Hepatic Panel Total Bilirubin 0.8 mg/dL (0.2-1) 05/19/20 06:05 Direct Bilirubin 0.2 mg/dL (0.0-0.2) 05/19/20 06:05 AST 28 U/L (15-37) 05/19/20 06:05 ALT 147 U/L (13-61) H 05/19/20 06:05 Alkaline Phosphatase 312 U/L (45-117) H 05/19/20 06:05 Albumin 2.1 g/dl (3.4-5.0) L 05/19/20 06:05 Code(s): R74.8 - ABNORMAL LEVELS OF OTHER SERUM ENZYMES (6) Pleural effusion Assessment/Plan: Improved monitor Code(s): J90 - PLEURAL EFFUSION, NOT ELSEWHERE CLASSIFIED (7) Anemia Assessment/Plan: gi consult Normocytic guaiac negative on initial exam and no history of overt GI bleeding reported. Unclear what her baseline is. Likely multifactorial Advise: Hematology evaluation Obtain records from [facility] to compare blood work / recent endoscopic evaluations Laboratory Tests 05/14/20 05/14/20 05/15/20 06:00 10:25 10:05 Hgb 9.5 L 9.8 L Hct 29.7 L 30.3 L Iron 25 L TIBC 220 L Iron Saturation 11 L Unsaturated IBC 195 L Ferritin 226.7 05/16/20 05/17/20 06:15 06:20 Hgb 9.7 L 10.0 L Hct 30.4 L 31.5 L Iron TIBC Iron Saturation Unsaturated IBC Ferritin Code(s): D64.9 - ANEMIA, UNSPECIFIED (8) Amyloid disease Assessment/Plan: hem noted --for fat pad biopsy--PT REFUSING AT THIS TIME surgical consult pending Code(s): E85.9 - AMYLOIDOSIS, UNSPECIFIED Condition: Improved - Instructions Diet, Activity, Other Instructions: cbc and cmp every week Referrals: ON STAFF,NOT [Primary Care Provider] - Disposition: LONGTERM FACILITY - Home Medications Comprehensive Discharge Medication List: Ambulatory Orders Aspirin 81 mg PO DAILY 05/11/20 Atorvastatin Ca [Lipitor] 80 mg PO HS 05/11/20 --hold till lft normalize Ferrous Sulfate 325 mg PO TID 05/11/20 Gabapentin 100 mg PO QID 05/11/20 Gabapentin 300 mg PO HS 05/11/20 Losartan Potassium 25 mg PO DAILY 05/11/20 Sennosides [Senno] 17.2 mg PO HS 05/11/20 Amlodipine Besylate [Norvasc -] 10 mg PO DAILY tablet 05/21/20 Collagenase Clostridium Hist. [Santyl -] 1 applic TP DAILY tube 05/21/20 Docusate Sodium [Colace -] 100 mg PO BID capsule 05/21/20 Insulin (Levemir) [Levemir Vial] 10 units SQ HS units 05/21/20 Insulin (Levemir) [Levemir Vial] 32 units SQ AM units 05/21/20 Insulin Sliding Scale [Novolog Vial Sliding Scale -] 1 vial SQ ACHS units 05/21/20 Metoprolol Tartrate [Lopressor -] 50 mg PO BID tablet 05/21/20 Potassium Chloride [K-Dur -] 20 meq PO DAILY tablet.er 05/21/20 Torsemide [Demadex -] 80 mg PO DAILY@0600 tablet 05/21/20
[2020-05-21] MEDS: FERROUS SO4 325 MG TABLET (FP) PO SCH (09:06)
[2020-05-21] MEDS: POTASSIUM CHLORIDE TABS 20 MEQ TABLET.ER (FP) PO SCH (09:06)
[2020-05-21] MEDS: DOCUSATE SODIUM 100 MG CAPSULE (FP) PO SCH (09:06)
[2020-05-21] MEDS: amLODIPine BESYLATE 5 MG TABLET (FP) PO SCH (09:06)
[2020-05-21] MEDS: METOPROLOL TARTRATE 50 MG TABLET (FP) PO SCH (09:06)
[2020-05-21] MEDS: ASPIRIN COATED 81 MG TABLET.EC PO SCH (09:06)
[2020-05-21] MEDS: COLLAGENASE CLOSTRIDIUM HIST. 30 GRAMS TUBE TP SCH (10:18)
--- NOTE | 2020-05-21 10:33 | PN ---
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, Physician History of Present Illness: PULMONARY ALERT,COMFORTABLE,DYSPNEA IMPROVED,+ LEFT SHOULDER PAIN - Current Medication List Current Medications: Active Medications Amlodipine Besylate (Norvasc -) 10 mg PO DAILY [facility] Last Admin: 05/21/20 09:06 Dose: 10 mg Documented by: Aspirin (Ecotrin -) 81 mg PO DAILY [facility] Last Admin: 05/21/20 09:06 Dose: 81 mg Documented by: Collagenase (Santyl -) 1 applic TP DAILY [facility]; Protocol Last Admin: 05/21/20 10:18 Dose: Not Given Documented by: Docusate Sodium (Colace -) 100 mg PO BID [facility] Last Admin: 05/21/20 09:06 Dose: 100 mg Documented by: Ferrous Sulfate (Feosol -) 325 mg PO DAILY@0800 [facility] Last Admin: 05/21/20 09:06 Dose: 325 mg Documented by: Piperacillin Sod/Tazobactam (Sod 2.25 gm/ Dextrose) 50 mls @ 100 mls/hr IVPB Q8H-IV [facility]; Protocol Last Admin: 05/21/20 09:07 Dose: 100 mls/hr Documented by: Insulin Aspart (Novolog Vial Sliding Scale -) 1 vial SQ ACHS [facility]; Protocol Last Admin: 05/21/20 06:36 Dose: 4 units Documented by: Insulin Detemir (Levemir Vial) 10 units SQ HS [facility] Last Admin: 05/20/20 21:21 Dose: Not Given Documented by: Insulin Detemir (Levemir Vial) 32 units SQ AM [facility] Last Admin: 05/21/20 06:59 Dose: Not Given Documented by: Metoprolol Tartrate (Lopressor -) 50 mg PO BID [facility] Last Admin: 05/21/20 09:06 Dose: 50 mg Documented by: Potassium Chloride (K-Dur -) 20 meq PO DAILY [facility] Last Admin: 05/21/20 09:06 Dose: 20 meq Documented by: Senna (Senna -) 2 tab PO HS PRN PRN Reason: CONSTIPATION Torsemide (Demadex -) 80 mg PO DAILY@0600 [facility] Last Admin: 05/21/20 06:05 Dose: Not Given Documented by: - Objective Vital Signs: Vital Signs Temperature 97.5 F L 05/21/20 10:00 Pulse Rate 85 05/21/20 10:00 Respiratory Rate 18 05/21/20 10:00 Blood Pressure 157/85 05/21/20 10:00 O2 Sat by Pulse Oximetry (%) 98 05/21/20 10:00 Constitutional: Yes: Well Nourished, Calm Eyes: Yes: WNL HENT: Yes: WNL Neck: Yes: WNL Cardiovascular: Yes: Regular Rate and Rhythm, S1, S2 Respiratory: Yes: Diminished Gastrointestinal: Yes: Normal Bowel Sounds, Soft Extremities: Yes: WNL Edema: Yes Labs: CBC, BMP 05/17/20 06:20 Problem List - Problems (1) Acute on chronic renal failure Code(s): N17.9 - ACUTE KIDNEY FAILURE, UNSPECIFIED; N18.9 - CHRONIC KIDNEY DISEASE, UNSPECIFIED Qualifiers: Acute renal failure type: unspecified Chronic kidney disease stage: unspecified stage Qualified Code(s): N17.9 - Acute kidney failure, unspecified; N18.9 - Chronic kidney disease, unspecified (2) Bacteremia Code(s): R78.81 - BACTEREMIA (3) CHF (congestive heart failure) Code(s): I50.9 - HEART FAILURE, UNSPECIFIED Qualifiers: Heart failure type: unspecified Heart failure chronicity: unspecified Qualified Code(s): I50.9 - Heart failure, unspecified (4) Troponin I above reference range Code(s): R79.89 - OTHER SPECIFIED ABNORMAL FINDINGS OF BLOOD CHEMISTRY (5) Elevated liver enzymes Code(s): R74.8 - ABNORMAL LEVELS OF OTHER SERUM ENZYMES (6) Pleural effusion Code(s): J90 - PLEURAL EFFUSION, NOT ELSEWHERE CLASSIFIED Assessment/Plan IMP DYSPNEA IMPROVED ACUTE ON CHRONIC CHF GRAM NEGATIVE BACTEREMIA ANASARCA PLEURAL EFFUSION LIKELY TRANSUDATE SECONDARY TO ASCITES,CHF HTN HLD DM TONIA S/P L BKA ELEVATED LFTS improving PLAN SUPPLEMENTAL O2 DIURETICS ABX DAILY WTS MONITOR LYTES,RENAL FUNCTION,LFTS DR LEAL Problem List - Problems (1) Acute on chronic renal failure Code(s): N17.9 - ACUTE KIDNEY FAILURE, UNSPECIFIED; N18.9 - CHRONIC KIDNEY DISEASE, UNSPECIFIED Qualifiers: Acute renal failure type: unspecified Chronic kidney disease stage: unspecified stage Qualified Code(s): N17.9 - Acute kidney failure, unspecified; N18.9 - Chronic kidney disease, unspecified (2) Bacteremia Code(s): R78.81 - BACTEREMIA (3) CHF (congestive heart failure) Code(s): I50.9 - HEART FAILURE, UNSPECIFIED Qualifiers: Heart failure type: unspecified Heart failure chronicity: unspecified Qualified Code(s): I50.9 - Heart failure, unspecified (4) Troponin I above reference range Code(s): R79.89 - OTHER SPECIFIED ABNORMAL FINDINGS OF BLOOD CHEMISTRY (5) Elevated liver enzymes Code(s): R74.8 - ABNORMAL LEVELS OF OTHER SERUM ENZYMES (6) Pleural effusion Code(s): J90 - PLEURAL EFFUSION, NOT ELSEWHERE CLASSIFIED
[2020-05-21 11:56] LABS: BLOOD UREA NITROGEN 30.4 mg/dL (7-18); CALCIUM 9.2 mg/dL (8.5-10.1); CREATININE 1.5 mg/dL (0.55-1.3); MAGNESIUM 2.2 mg/dL (1.8-2.4); POTASSIUM 3.5 mmol/L (3.5-5.1)
--- NOTE | 2020-05-21 12:51 | PN ---
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, Physician History of Present Illness: stable no new issues - Current Medication List Current Medications: Active Medications Amlodipine Besylate (Norvasc -) 10 mg PO DAILY [facility] Last Admin: 05/21/20 09:06 Dose: 10 mg Documented by: Aspirin (Ecotrin -) 81 mg PO DAILY [facility] Last Admin: 05/21/20 09:06 Dose: 81 mg Documented by: Collagenase (Santyl -) 1 applic TP DAILY [facility]; Protocol Last Admin: 05/21/20 10:18 Dose: Not Given Documented by: Docusate Sodium (Colace -) 100 mg PO BID [facility] Last Admin: 05/21/20 09:06 Dose: 100 mg Documented by: Ferrous Sulfate (Feosol -) 325 mg PO DAILY@0800 [facility] Last Admin: 05/21/20 09:06 Dose: 325 mg Documented by: Piperacillin Sod/Tazobactam (Sod 2.25 gm/ Dextrose) 50 mls @ 100 mls/hr IVPB Q8H-IV [facility]; Protocol Last Admin: 05/21/20 09:07 Dose: 100 mls/hr Documented by: Insulin Aspart (Novolog Vial Sliding Scale -) 1 vial SQ ACHS [facility]; Protocol Last Admin: 05/21/20 12:04 Dose: 4 units Documented by: Insulin Detemir (Levemir Vial) 10 units SQ HS [facility] Last Admin: 05/20/20 21:21 Dose: Not Given Documented by: Insulin Detemir (Levemir Vial) 32 units SQ AM [facility] Last Admin: 05/21/20 06:59 Dose: Not Given Documented by: Metoprolol Tartrate (Lopressor -) 50 mg PO BID [facility] Last Admin: 05/21/20 09:06 Dose: 50 mg Documented by: Potassium Chloride (K-Dur -) 20 meq PO DAILY [facility] Last Admin: 05/21/20 09:06 Dose: 20 meq Documented by: Senna (Senna -) 2 tab PO HS PRN PRN Reason: CONSTIPATION Torsemide (Demadex -) 80 mg PO DAILY@0600 [facility] Last Admin: 05/21/20 06:05 Dose: Not Given Documented by: - Objective Vital Signs: Vital Signs Temperature 97.5 F L 05/21/20 10:00 Pulse Rate 85 05/21/20 10:00 Respiratory Rate 18 05/21/20 10:00 Blood Pressure 157/85 05/21/20 10:00 O2 Sat by Pulse Oximetry (%) 98 05/21/20 10:00 Constitutional: Yes: No Distress, Calm Cardiovascular: Yes: S1, S2 Respiratory: Yes: Regular, CTA Bilaterally Gastrointestinal: Yes: Normal Bowel Sounds, Soft Musculoskeletal: Yes: WNL Extremities: Yes: Other Neurological: Yes: Alert, Oriented Psychiatric: Yes: Alert, Oriented Labs: CBC, BMP 05/17/20 06:20 05/21/20 10:48 Assessment/Plan 70 year old woman with history of CHF, DM type 2, chronic osteomylitis, BKA, hypertension, hyperlipidiemia who presented from the [place] with arm swelling and found to have anasarca, CHF and gram negative bacteremia. 1. Acute kidney injury 2. CHF/Anasarca 3. Gram negative Bacteremia/UTI 4. Hypertension 5. Hyperlipidemia 6 gm negative bacteremia plan continue current mgmt can stop abx rest as per the team
[2020-05-21 13:44] VITALS: BMI 27.8
[2020-05-21 14:16] VITALS: BP 140/80; PULSE 84; TEMP 97.8
--- NOTE | 2020-05-21 17:21 | PN ---
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, Physician Chief Complaint: Acute kidney injury History of Present Illness: Seen and examined at the bedside awake and alert Denies any acute complaints. Denies shortness of breath, chest pain, abdominal pain, nausea, vomiting or diarrhea. - Current Medication List Current Medications: Active Medications Amlodipine Besylate (Norvasc -) 10 mg PO DAILY [facility] Last Admin: 05/21/20 09:06 Dose: 10 mg Documented by: Aspirin (Ecotrin -) 81 mg PO DAILY [facility] Last Admin: 05/21/20 09:06 Dose: 81 mg Documented by: Collagenase (Santyl -) 1 applic TP DAILY [facility]; Protocol Last Admin: 05/21/20 10:18 Dose: Not Given Documented by: Docusate Sodium (Colace -) 100 mg PO BID [facility] Last Admin: 05/21/20 09:06 Dose: 100 mg Documented by: Ferrous Sulfate (Feosol -) 325 mg PO DAILY@0800 [facility] Last Admin: 05/21/20 09:06 Dose: 325 mg Documented by: Insulin Aspart (Novolog Vial Sliding Scale -) 1 vial SQ [facility]; Protocol Last Admin: 05/21/20 12:04 Dose: 4 units Documented by: Insulin Detemir (Levemir Vial) 10 units SQ HS [facility] Last Admin: 05/20/20 21:21 Dose: Not Given Documented by: Insulin Detemir (Levemir Vial) 32 units SQ AM [facility] Last Admin: 05/21/20 06:59 Dose: Not Given Documented by: Metoprolol Tartrate (Lopressor -) 50 mg PO BID [facility] Last Admin: 05/21/20 09:06 Dose: 50 mg Documented by: Potassium Chloride (K-Dur -) 20 meq PO DAILY [facility] Last Admin: 05/21/20 09:06 Dose: 20 meq Documented by: Senna (Senna -) 2 tab PO HS PRN PRN Reason: CONSTIPATION Torsemide (Demadex -) 80 mg PO DAILY@0600 [facility] Last Admin: 05/21/20 06:05 Dose: Not Given Documented by: - Objective Vital Signs: Vital Signs Temperature 97.8 F 05/21/20 14:00 Pulse Rate 84 05/21/20 14:00 Respiratory Rate 18 05/21/20 14:00 Blood Pressure 140/80 05/21/20 14:00 O2 Sat by Pulse Oximetry (%) 99 05/21/20 14:00 Constitutional: Yes: No Distress, Calm HENT: Yes: Atraumatic Neck: Yes: Supple Cardiovascular: Yes: Regular Rate and Rhythm Respiratory: Yes: Regular Gastrointestinal: Yes: Soft Extremities: No: Cyanosis Edema: No Neurological: Yes: Alert, Oriented Labs: CBC, BMP 05/17/20 06:20 05/21/20 10:48 Assessment/Plan 70 year old woman with history of CHF, DM type 2, chronic osteomylitis, BKA, hypertension, hyperlipidiemia who presented from the [place] with arm swelling and found to have anasarca, CHF and gram negative bacteremia. 1. Acute kidney injury 2. CHF/Anasarca 3. Gram negative Bacteremia/UTI 4. Hypertension 5. Hyperlipidemia 6. Hypokalemia in the setting of loop diuretics. Renal function improved and stable Continue Torsemide 80mg daily For fluid management On discharge Low sodium diet Supplement potassium daily while on torsemide. Trend renal function and electrolytes while inpatient Abx as per ID Discharge planning when stable as per primary team. Thank you Joaquín Berry DO
[2020-05-21 18:24] LABS: ALBUMIN 2.2 g/dl (3.4-5.0); TOT PROT 7.5 g/dl (6.4-8.2)
[2020-05-21 18:25] LABS: BILIRUBIN,DIRECT 0.2 mg/dL (0.0-0.2); BILIRUBIN,TOTAL 0.4 mg/dL (0.2-1)
== END 2020-05-21 19:12 | DRG 291 ==
LOC: SUPCPDRO 12:39 → JER 12:39 → JERBED 18:30 → J4S 05-12 16:16
PROVIDERS: ADMIT Internal Medicine; ATTEND Family Medicine
DX: I13.0 Hypertensive heart and chronic kidney disease with heart failure and stage 1 through stage 4 chronic kidney disease, or unspecified chronic kidney disease (principal); I50.43 Acute on chronic combined systolic (congestive) and diastolic (congestive) heart failure; J18.9 Pneumonia, unspecified organism; N39.0 Urinary tract infection, site not specified; Z68.41 Body mass index [BMI] 40.0-44.9, adult; J98.11 Atelectasis; J90 Pleural effusion, not elsewhere classified; N17.9 Acute kidney failure, unspecified; Z16.12 Extended spectrum beta lactamase (ESBL) resistance; E85.4 Organ-limited amyloidosis; E46 Unspecified protein-calorie malnutrition; B15.9 Hepatitis A without hepatic coma; E11.22 Type 2 diabetes mellitus with diabetic chronic kidney disease; I42.9 Cardiomyopathy, unspecified; M79.602 Pain in left arm; R06.02 Shortness of breath; M25.512 Pain in left shoulder; M79.601 Pain in right arm; Z89.512 Acquired absence of left leg below knee; Z98.41 Cataract extraction status, right eye; B96.89 Other specified bacterial agents as the cause of diseases classified elsewhere; R31.9 Hematuria, unspecified; R79.89 Other specified abnormal findings of blood chemistry; R74.0 Nonspecific elevation of levels of transaminase and lactic acid dehydrogenase [LDH]; E78.5 Hyperlipidemia, unspecified; E66.01 Morbid (severe) obesity due to excess calories; R60.1 Generalized edema; N18.9 Chronic kidney disease, unspecified; R74.8 Abnormal levels of other serum enzymes; I11.0 Hypertensive heart disease with heart failure; Z79.4 Long term (current) use of insulin; D63.1 Anemia in chronic kidney disease; D50.9 Iron deficiency anemia, unspecified; K76.1 Chronic passive congestion of liver
CPT/HCPCS: 36415; 71045-TC-FY; 71250-TC; 73030-TC-LT-FY; 73630-TC-RT-FY; 74176-TC; 76641-TC-RT; 76705-TC; 76775-TC; 80048; 80053; 80061; 80076; 81003; 82272; 82378; 82550; 82553; 82565; 82728; 82784; 82962; 83036; 83540; 83550; 83721; 83735; 83880; 83883; 84100; 84155; 84156; 84157; 84165; 84443; 84484; 84540; 85025; 86301; 86704; 86705; 86706; 86707; 86708; 86709; 86803; 87040; 87186; 87205; 87340; 87522; 93005; 93010; 93306-TC; 93971; 93971-TC; 99285-25; J0131; J1644; U0003

== ENCOUNTER 2020-05-25 09:05 | Inpatient (IN) | payer OTHER ==
--- NOTE | 2020-05-25 09:14 | PDOC ---
History of Present Illness - General Stated Complaint: OXYGEN LEVEL LOW Time Seen by Provider: 05/25/20 09:13 History Source: EMS Exam Limitations: Unresponsive - History of Present Illness Initial Comments: 05/25/20 10:07 HPI: This is a 70 y/o female with PMH of diabetic foot ulcer on R. foot, chronic osteomyelitis of R. foot, diabetic neuropathy, HTN, CKD, DM, HLD, CHF w/ E.F. 40% BIBA from [facility] because of hypoxia and AMS since this morning. The patient was just d/c Sunday after being treated for gram - bacteremia. Per old documents patient is usually AAO x2 and able to answer questions. On arrival, patient is not arousable, but protecting her airway. PMH: Uncontrolled DM, Diabetic foot ulcer on R. foot, Chronic osteomyelitis of right foot, Diabetic neuropathy, Left leg below knee amputation, OA, Iron deficiency anemia, HLD, HTN, Charcot's joint, ESBL resistance and HF Meds: See nurse note Allergies: KNDA PE: GENERAL: Patient unable to be aroused with sternal rub. HEAD: No signs of trauma EYES: PERRLA, ENT: Moist mucosa NECK: Normal ROM, supple, no lymphadenopathy, JVD, or masses LUNGS: Crackles in RLL. Rhonchi throughout both lungs. HEART: Regular rate and rhythm ABDOMEN: Distended. Bowel sounds present. EXTREMITIES: Below the knee amputation of left leg. Diabetic foot ulcer on plantar surface of right foot. SKIN: Diabetic foot ulcer on plantar surface of right foot. MDM: This is a 70 y/o female with PMH of Uncontrolled DM, Diabetic foot ulcer on R. foot, Chronic osteomyelitis of right foot, Diabetic neuropathy, Left leg below knee amputation, OA, Iron deficiency anemia, HLD, HTN, Charcot's joint, ESBL resistance and HF w/ E.F. 40% BIBA from [facility] because of hypoxia and AMS since this morning. The patient was just d/c Sunday after being treated for gram - bacteremia. - Sepsis workup - Tylenol for fever - Fluids - Broad spec abx Vital Signs Temp Pulse Resp BP Pulse Ox 102.1 F H 79 28 H 93/61 100 05/25/20 09:20 05/25/20 09:45 05/25/20 09:45 05/25/20 09:45 05/25/20 09:45 - Febrile and hypotensive - R. sided crackles. Pneumonia likely source - CXR with worsening R.sided infiltrates since 05/1505/25/20 10:18 - Zosyn for HCAP 05/25/20 10:20 - Pt is tachypneic and most likely will need intubation - Attempted to contact daughter. Called 6 times, no answer. - [facility] confirmed that patient is DNI/DNR however we don't have the documentation. Awaiting fax from medical records. 05/25/20 11:30 - Daughter wants to go ahead with intubation CT non-contrast chest: IMPRESSION: Limited examination, as described above Atelectatic changes in the left lung. Moderate elevation of the right hemidiaphragm with consolidation/atelectasis in the right lower lobe and to a lesser extent in the right middle lobe as well as a [id number] right pleural effusion suggestive of pneumonia. Hepatomegaly with the liver measuring 20 cm in cranio caudal length. Small amount [id number]-[id number] amount of ascites Anasarca. Enlarged fibroid uterus, as described above T12-L1 moderate degenerative disc disease. Minimal anterolisthesis of L4 over L5, likely degenerative 05/25/20 14:20 - Intubated and central line placed - leukocytosis 24.6k - Troponin .35 likely demand ischemia from hypotension 05/25/20 14:25 CXR: Impression: NG tube tip below GE junction. Right jugular line tip at junction of SVC and right atrium. ET tube tip just above right mainstem bronchus. Please retract. See above - Pt accepted by ICU Past History - Medical History Allergies/Adverse Reactions: Allergies Allergy/AdvReac Type Severity Reaction Status Date / Time No Known Allergies Allergy Verified 05/25/20 10:04 Home Medications: Ambulatory Orders Aspirin 81 mg PO DAILY 05/11/20 Atorvastatin Ca [Lipitor] 80 mg PO HS 05/11/20 Gabapentin 100 mg PO QID 05/11/20 Gabapentin 300 mg PO HS 05/11/20 Losartan Potassium 25 mg PO DAILY 05/11/20 Sennosides [Senno] 17.2 mg PO HS 05/11/20 Torsemide [Demadex -] 80 mg PO DAILY@0600 tablet 05/21/20 Chlorhexidine Gluconate [Hibiclens For Decolonization -] 1 applic TP DAILY 05/25/20 Glucagon - 1 mg IJ PRN 05/25/20 Insulin Glargine,Hum.rec.anlog [Basaglar Kwikpen U-100] 17 unit SQ HS 05/25/20 Insulin Lispro [Admelog Solostar] 7 unit SQ AC 05/25/20 Metoprolol Tartrate [Lopressor -] 50 mg PO DAILY 05/25/20 Polyethylene Glycol 3350 [Glycolax] 17 gm PO DAILY PRN 05/25/20 Anemia: No Asthma: No Cancer: No Cardiac Disorders: No CVA: No COPD: No CHF: Yes Diabetes: Yes GI Disorders: No Disorders: No HTN: Yes Hypercholesterolemia: Yes Liver Disease: No Seizures: No Thyroid Disease: No - Surgical History Orthopedic Surgery: Yes (BTK L leg amputation) - Psycho-Social/Smoking History Smoking History: Never smoked Have you smoked in the past 12 months: No Procedures - Central Line Central Line Lumen: triple Central Line Position: internal jugular (R) Complications: none Post Central Line Insertion: sutured, good blood return, position confirmed w/ CXR ED Treatment Course - LABORATORY CBC & Chemistry Diagram: 05/26/20 05:16 05/26/20 05:16 Discharge - Discharge Information Problems reviewed: Yes Clinical Impression/Diagnosis: Septic shock Condition: Guarded - Admission Yes - Follow up/Referral - Patient Discharge Instructions - Post Discharge Activity
[2020-05-25] MEDS ORDERED: SODIUM CHLORIDE 1,000 ML IV SCH ×3 (09:15→16:54)
[2020-05-25] MEDS ORDERED: ACETAMINOPHEN 1000 MG/100 ML VIAL (NON FORMULARY) IVPB ONE (09:16)
[2020-05-25] MEDS ORDERED: SODIUM CHLORIDE 2,449 ML IV ONE (09:29)
[2020-05-25] MEDS ORDERED: ACETAMINOPHEN INJECTION 100 ML IVPB ONE (09:31)
[2020-05-25] MEDS ORDERED: PIPERACILLIN/TAZOB 3.375 GM 3.375 GM in DEXTROSE 5%-WATER - 50 ML IVPB ONE (10:03)
[2020-05-25 10:31] LABS: BASO % 0.3 % (0-2.0); HEMATOCRIT 33.9 % (32.4-45.2); HEMOGLOBIN 10.6 GM/dL (10.7-15.3); LYMPH % 4.3 % (8-40); MCH 26.8 pg (25.7-33.7); MCHC 31.2 g/dl (32.0-36.0); MEAN CELL VOLUME 85.9 fl (80-96); MEAN PLT VOLUME 9.3 fl (7.5-11.1); MONO % 5.9 % (3.8-10.2); NEUT % 89.5 % (42.8-82.8); PLATELET COUNT 251 K/MM3 (134-434); RBC 3.95 M/mm3 (3.60-5.2); RDW 19.3 % (11.6-15.6); WHITE BLOOD COUNT 24.6 K/mm3 (4.0-10.0)
[2020-05-25 10:36] LABS: INR 1.94 (0.83-1.09)
[2020-05-25 10:38] LABS: EPI CELLS 2 /uL (0-25.1); HYALINE CASTS 0 /uL (0-3.1); PH,URINE 5.5 (5.0-8.0); URINE APPEARANCE CLEAR; URINE BACTERIA 377 /uL (0-1359); URINE BILIRUBIN NEGATIVE (NEGATIVE); URINE COLOR YELLOW; URINE GLUCOSE (UA) 2+ (NEGATIVE); URINE KETONE NEGATIVE (NEGATIVE); URINE LEUK ESTERASE 2+ (NEGATIVE); URINE NITRITE NEGATIVE (NEGATIVE); URINE PROTEIN 2+ (NEGATIVE); URINE RBC 11 /uL (0-23.9); URINE UROBILINOGEN 0.2 mg/dL (0.2-1.0); URINE WBC 413 /uL (0-25.8)
[2020-05-25 10:39] LABS: ACTIVATED PTT 43.3 SECONDS (25.2-36.5)
[2020-05-25] MEDS ORDERED: PIPERACILLIN/TAZOB 3.375 GM 3.375 GM/50 ML BAG IVPB ONE (10:42)
--- NOTE | 2020-05-25 10:58 | PDOC ---
Documentation entered by Codie Mims SCRIBE, acting as scribe for Peter Nicole MD. Peter Nicole MD: This documentation has been prepared by the Felicita medrano Brenda, SCRIBE, under my direction and personally reviewed by me in its entirety. I confirm that the documentation accurately reflects all work, treatment, procedures, and medical decision making performed by me. Attending Attestation - Resident Resident Name: Charlotte Jeffers - ED Attending Attestation I have performed the following: I have examined & evaluated the patient, The case was reviewed & discussed with the resident, I agree w/resident's findings & plan, Exceptions are as noted - HPI HPI: 05/25/20 09:36 The patient is a 70 year old female with a significant PMH of Uncontrolled DM, Diabetic foot ulcer on R. foot, Chronic osteomyelitis of right foot, Diabetic neuropathy, Left leg below knee amputation, OA, Iron deficiency anemia, HLD, HTN, Charcot's joint, ESBL resistance and HF who presents to the ED BIBA from [facility] for evaluation of hypoxia and AMS. Allergies: NKA Social history: No reported hx of tobacco use, alcohol use or illicit drug use. PCP: Romain Carvalho JR - Physicial Exam PE: 05/25/20 09:42 Vitals: Triage vital signs reviewed General Appearance: minimally resposive, Chest Wall: Nontender Cardiac: Regular rate and rhythm, Lungs: Rales at the bases right greater than left Abdomen: Soft, nondistended, normal bowel sounds, nontender to palpation Extremities: S/p left bka Skin: Warm and dry, Small ulcer to right foot 05/27/20 16:49 - Critical Care Time Total Critical Care Time: 65 Critical Care Statement: The care of this patient involved high complexity decision making to prevent further life threatening deterioration of the patient's condition and/or to evaluate & treat vital organ system(s) failure or risk of failure. - Medical Decision Making 05/25/20 11:52 70 years old past medical history significant for hypertension hyperlipidemia diabetes diabetic foot ulcer status post below the knee amputation on the left presents to the ED from [facility] for altered mental status and hypoxemia Per EMS patient is DNR/DNI however no paperwork available sepsis work-up initiated broad-spectrum antibiotics initiated Sepsis protocol initiated broad-spectrum antibiotics ordered IV fluids given Chest x-ray demonstrates likely multilobar pneumonia Interpreted by me Initially unable to reach daughter to confirm CODE STATUS after reaching daughter and discussing goals of care daughter who is healthcare proxy states that patient in this situation would want a trial of intubation and pressors We will intubate central line admit to ICU for further management of sepsis Chest x-ray demonstrates ET tube at tip of right mainstem bronchus will withdraw 1 cm Central line adequately placed Patient to be admitted to ICU for further management. Discharge - Discharge Information Problems reviewed: Yes Clinical Impression/Diagnosis: Septic shock Condition: Guarded - Follow up/Referral - Patient Discharge Instructions - Post Discharge Activity
[2020-05-25 11:04] LABS: ALBUMIN 2.2 g/dl (3.4-5.0); ALK PHOS 328 U/L (45-117); BILIRUBIN,TOTAL 1.2 mg/dL (0.2-1); BLOOD UREA NITROGEN 53.2 mg/dL (7-18); CALCIUM 9.2 mg/dL (8.5-10.1); CHLORIDE 97 mmol/L (98-107); CO2 19 mmol/L (21-32); CREATININE 2.8 mg/dL (0.55-1.3); GLUCOSE,RANDOM 119 mg/dL (74-106); SGPT/ALT 906 U/L (13-61); SODIUM 135 mmol/L (136-145); TOT PROT 8.1 g/dl (6.4-8.2)
[2020-05-25 11:07] LABS: ANION GAP 19 MMOL/L (8-16); SGOT/AST 1416 U/L (15-37)
[2020-05-25 11:12] LABS: POTASSIUM 6.3 mmol/L (3.5-5.1)
[2020-05-25] MEDS ORDERED: RAPID SEQUENCE INTUBATION KIT NR ONE ×2 (11:22→11:49)
[2020-05-25 11:24] LABS: VENOUS BASE EXCESS -5.7 mmol/L (-2-2); VENOUS O2 SATURATION 68.7 % (70-80); VENOUS PCO2 43.8 mmHg (38-52); VENOUS PH 7.292 (7.310-7.410)
[2020-05-25 11:26] LABS: N-TERMINAL BNP 23584.5 pg/ml (5-125)
[2020-05-25 11:53] LABS: LDH > 1000 U/L (84-246)
[2020-05-25] MEDS ORDERED: SODIUM ZIRCONIUM CYCLOSILICATE (LOKELMA) 5 GM PACKET NR ONE (12:00)
[2020-05-25 12:29] LABS: YEAST POSITIVE (NEGATIVE)
[2020-05-25] MEDS ORDERED: CALCIUM GLUCONATE 10% - 1,000 MG/10 ML VIAL IVPB ONE (12:40)
[2020-05-25] MEDS ORDERED: INSULIN REGULAR HUMAN 100 UNITS/ML *VIAL IVPUSH ONE (12:40)
[2020-05-25] MEDS ORDERED: SODIUM BICARBONATE 4.2% 5 MEQ/10 ML DISP.SYRIN IVPUSH ONE ×2 (12:41→12:59)
[2020-05-25] MEDS ORDERED: DEXTROSE 50%-WATER - 25 GM/50 ML VIAL IVPUSH ONE (12:41)
[2020-05-25] MEDS ORDERED: CALCIUM GLUCONATE 10% - 1,000 MG/10 ML VIAL ONE (12:59)
[2020-05-25] MEDS ORDERED: DEXTROSE 50%-WATER 25 GM/50 ML DISP.SYRIN ONE (12:59)
[2020-05-25] MEDS ORDERED: INSULIN REGULAR HUMAN 100 UNITS/ML *VIAL ONE (13:00)
[2020-05-25 13:37] LABS: PLATELET ESTIMATE NORMAL
[2020-05-25 13:45] LABS: ROULEAU 2+
[2020-05-25] MEDS ORDERED: MIDAZOLAM IN 0.9 % SOD.CHLORID 100 MG/100 ML PLAST..BAG IVPB SCH (14:15)
[2020-05-25] MEDS ORDERED: VANCOMYCIN 1 GM in D5W (PRE-DOCKED) 1,000 MG/250 ML IVPB ONE (14:38)
[2020-05-25] MEDS: FENTANYL NS IVPB 500 MCG/100 ML BAG IVPB SCH (14:48)
--- NOTE | 2020-05-25 14:53 | CONSULT ---
Consultation: REQUESTING PROVIDER: CONSULT REQUEST: We have been asked to medically evaluate this patient for admission to the ICU HISTORY OF PRESENT ILLNESS: History is limited due to patient being intubated at time of examination. Hx obtained from ED and prior records. 70 year old female with a significant PMHx of Uncontrolled DM, Diabetic foot ulcer on R. foot, Chronic osteomyelitis of right foot, Diabetic neuropathy, Left leg below knee amputation, OA, Iron deficiency anemia, HLD, HTN, Charcot's joint, ESBL resistance and CHF who presents to the ED from [facility] for evaluation of hypoxia and AMS. The patient was previously discharged on 05/23 after having been treated for G(-) Bacteremia. The patient's daughter was at bedside and goals of care were discussed. The patient is FULL CODE at this time. Social history: No reported hx of tobacco use, alcohol use or illicit drug use. PCP: Romain Carvalho JR REVIEW OF SYSTEMS: Patient intubated at time of exam, unable to assess. PHYSICAL EXAMINATION Vital Signs - 24 hr 05/25/20 05/25/20 05/25/20 09:17 09:18 09:20 Temperature 102.1 F H 102.1 F H Pulse Rate 121 H Pulse Rate [ 79 Apical] Respiratory 22 H 30 H Rate Blood Pressure 85/59 L Blood Pressure 78/53 L [Left Arm] O2 Sat by Pulse 74 L 98 Oximetry (%) 05/25/20 05/25/20 05/25/20 09:33 09:45 10:00 Temperature Pulse Rate Pulse Rate [ 80 79 80 Apical] Respiratory 28 H 28 H 29 H Rate Blood Pressure Blood Pressure 91/59 L 93/61 93/61 [Left Arm] O2 Sat by Pulse 100 100 100 Oximetry (%) 05/25/20 05/25/20 05/25/20 10:15 10:30 10:31 Temperature Pulse Rate Pulse Rate [ 80 80 Apical] Respiratory 34 H 38 H Rate Blood Pressure Blood Pressure 98/62 99/65 [Left Arm] O2 Sat by Pulse 100 100 100 Oximetry (%) 05/25/20 05/25/20 05/25/20 10:33 10:45 11:28 Temperature Pulse Rate 77 Pulse Rate [ 79 80 Apical] Respiratory 34 H 18 Rate Blood Pressure Blood Pressure 96/65 100/67 [Left Arm] O2 Sat by Pulse 100 100 100 Oximetry (%) 05/25/20 05/25/20 05/25/20 11:45 12:00 12:02 Temperature Pulse Rate Pulse Rate [ 78 81 Apical] Respiratory 21 H 14 21 H Rate Blood Pressure Blood Pressure 101/72 105/68 [Left Arm] O2 Sat by Pulse 100 100 Oximetry (%) 05/25/20 05/25/20 05/25/20 12:15 12:30 12:33 Temperature Pulse Rate 84 Pulse Rate [ 84 83 Apical] Respiratory 16 16 15 Rate Blood Pressure Blood Pressure 109/83 117/81 [Left Arm] O2 Sat by Pulse 100 100 100 Oximetry (%) 05/25/20 05/25/20 05/25/20 13:00 13:15 13:30 Temperature 98.5 F 98.1 F Pulse Rate Pulse Rate [ 82 80 83 Apical] Respiratory 16 16 16 Rate Blood Pressure Blood Pressure 105/73 120/73 117/74 [Left Arm] O2 Sat by Pulse 100 100 100 Oximetry (%) 05/25/20 13:45 Temperature 98.2 F Pulse Rate Pulse Rate [ 81 Apical] Respiratory 14 Rate Blood Pressure Blood Pressure 103/66 [Left Arm] O2 Sat by Pulse 100 Oximetry (%) GENERAL: Intubated & Sedated HEAD: Normal with no signs of trauma. EYES: Not assessed NECK: Supple, w/o lymphadenopathy LUNGS: On ventilator. Breath sounds coarse throughout HEART: Regular rate and rhythm, normal S1 and S2 without murmur, rub or gallop. ABDOMEN: Very distended. Fluid wave appreciated UPPER EXTREMITIES: 2+ pulses, warm, well-perfused. No cyanosis. No clubbing. LOWER EXTREMITIES: Left BKA, R foot ulcer lateral aspect. NEUROLOGICAL: Not assessed PSYCHIATRIC: Not assessed CBC, BMP 05/25/20 09:40 05/25/20 14:35 Troponin, BNP 05/25/20 05/25/20 09:40 14:35 Troponin I 0.35 H 0.81 H* B-Natriuretic Peptide 87999.5 H INR, PTT INR 1.94 (0.83-1.09) H 05/25/20 09:40 Anion Gap Anion Gap 10 MMOL/L (8-16) 05/25/20 14:35 Active Medications Chlorhexidine Gluconate (Hibiclens For Decolonization -) 1 applic TP HS SERAFIN Heparin Sodium (Porcine) (Heparin -) 5,000 unit SQ TID SERAFIN Fentanyl (Sublimaze Ivpb) 500 mcg in 100 mls @ 16.329 mls/hr IVPB TITR SERAFIN Last Admin: 05/25/20 14:48 Dose: 0.31 mcg/kg/hr, 5 mls/hr Documented by: Midazolam HCl (Midazolam 100mg/100ml-0.9%Nacl) 100 mg in 100 mls @ 1 mls/hr IVPB TITR SERAFIN; Protocol Sodium Chloride (Normal Saline -) 1,000 mls @ 83 mls/hr IV ASDIR SERAFIN Piperacillin Sod/Tazobactam (Sod 3.375 gm/ Dextrose) 50 mls @ 100 mls/hr IVPB Q6H-IV SERAFIN; Protocol Piperacillin Sod/Tazobactam (Sod 3.375 gm/ Dextrose) 50 mls @ 100 mls/hr IVPB Q6H-IV SERAFIN; Protocol Stop: 05/26/20 09:29 Insulin Aspart (Novolog Vial Sliding Scale -) 1 vial SQ TID SERAFIN; Protocol Mupirocin (Bactroban Ointment (For Decolonization) -) 1 applic NS BID SERAFIN Stop: 05/30/20 21:59 ASSESSMENT/PLAN: 70 year old female with a significant PMHx of Uncontrolled DM, Diabetic foot ulcer on R. foot, Chronic osteomyelitis of right foot, Diabetic neuropathy, Left leg below knee amputation, OA, Iron deficiency anemia, HLD, HTN, Charcot's joint, ESBL resistance and CHF who presents to the ED from [facility] for evaluation of hypoxia and AMS. The patient was previously discharged on 05/23 after having been treated for G(-) Bacteremia GENERAL/NEURO -Sedated & Intubated -Central line in place (05/25) -Monitor Neuro signs CARDIAC -History of CHF -ECHO (05/12): EF: 40% Moderate concentric LV hypertrophy, systolic function moderately reduced. Suggestive of infiltrative amyloid cardiomyopathy. Diastolic dysunction (grade 3, restrictive pattern), consistent w/ increased atrial pressure. Mild tricuspid regurg w/ pulmonary htn. -CT Chest: The heart is slightly enlarged. No gross pericardial effusion is identified -Elevated K+: EKG shows no abnormalities -Troponemia: 0.35 (05/25), will trend. Likely due to sepsis -Monitor MAP >65 -Add Levophed as neededl PULM -Septic Shock 2/2 likely to pneumonia. Can not rule out UTI -Sedated & Intubated -Versed Drip -Vent: 450/14/100/5 -Sputum Cultures, Legionella Cultures sent -CT Chest: Atelectatic changes in the left lung. Moderate elevation of the right hemidiaphragm with consolidation/atelectasis in the right lower lobe and to a lesser extent in the right middle lobe as well as a [id number] right pleural effusion suggestive of pneumonia. -Monitor O2 Sats ENDOCRINE -Hx of Diabetes -ISS TID per protocol -Monitor BG q6 GASTRO -Abdominal Ascites 2/2 to TONIA and chronic CHF -Hepatomegally noted on CT -LFTs elevated, will trend -Fluid wave appreciated -Cautious fluid resucitation: NS @ 83 RENAL -Pre-renal TONIA likely 2/2 sepsis -UA shows 2+ Blood -Lynn in Place: Monitor I/Os -Monitor creatinine -Monitor Potassium: Consider potassium wasting medication, dialysis if necess ly. Avoid Lactated Ringers -Monitor Lactic Acid: FU repeat ABG -Consider consulting Dr. Berry Nephrology: 2/2 TONIA in the setting of chronic CHF w/ Ascites INFECTIOUS -Septic Shock likely 2/2 Pneumonia, can not rule out UTI (see UA) -Blood, Urine, Sputum, Legionella Cultures sent -Urinalysis: +2 LE, +2 Blood -Covid Pending -Zosyn @ 3.375 Q6 based on creatinine clearance of 24 -Vanc ordered: Recent hospital admission/discharge within 30 days -ID Consulted -Wound Care consulted 2/2 R foot ulcer FEN Fluid: NS @ 83 to resuscitate without fluid overload Electrolytes: Monitor K+, FU BMP Nutrition: NPO, consult pilot control operator helper Lines: -Central Line (05/25) -Lynn Catheter (05/25) -ET Tube (05/25) Dispo: We will continue to follow the patient. Thank you for this consultative opportunity. Visit type - Medication Review Med list reviewed for High Risk Meds patients 65 and older: Yes - Emergency Visit Emergency Visit: Yes ED Registration Date: 05/25/20 Care time: The patient presented to the Emergency Department on the above date and was hospitalized for further evaluation of their emergent condition. - New Patient This patient is new to me today: Yes Date on this admission: 05/27/20 - Critical Care Critical Care patient: Yes Total Critical Care Time (in minutes): 36 Critical Care Statement: The care of this patient involved high complexity decision making to prevent further life threatening deterioration of the patient's condition and/or to evaluate & treat vital organ system(s) failure or risk of failure. ATTENDING PHYSICIAN STATEMENT I saw and evaluated the patient. I reviewed the resident's note and discussed the case with the resident. I agree with the resident's findings and plan as documented. SUBJECTIVE: OBJECTIVE: ASSESSMENT AND PLAN:
[2020-05-25] MEDS ORDERED: VANCOMYCIN 1 GRAM (PRE-DOCKED) 1,000 MG/250 ML BAG IVPB ONE (14:55)
--- NOTE | 2020-05-25 15:08 | EKG ---
Test Reason : Blood Pressure : / mmHG Vent. Rate : 077 BPM Atrial Rate : 077 BPM P-R Int : 138 ms QRS Dur : 064 ms QT Int : 432 ms P-R-T Axes : 048 085 098 degrees QTc Int : 488 ms NORMAL SINUS RHYTHM NORMAL ECG WHEN COMPARED WITH ECG OF 11-MAY-2020 23:23, NO SIGNIFICANT CHANGE WAS FOUND Confirmed by Anders Forbes MD ([id number]) on 05/25/2020 3:07:33 PM Referred By: Confirmed By:Anders Forbes MD
[2020-05-25 15:19] LABS: BILIRUBIN,TOTAL 0.9 mg/dL (0.2-1); BLOOD UREA NITROGEN 51.6 mg/dL (7-18); CALCIUM 8.4 mg/dL (8.5-10.1); CREATININE 2.9 mg/dL (0.55-1.3); POTASSIUM 4.4 mmol/L (3.5-5.1); TOT PROT 6.7 g/dl (6.4-8.2)
--- NOTE | 2020-05-25 15:37 | PN ---
Teaching Attending Note Name of Resident: Rubens Yanez ATTENDING PHYSICIAN STATEMENT I saw and evaluated the patient. I reviewed the resident's note and discussed the case with the resident. I agree with the resident's findings and plan as documented. SUBJECTIVE: Patient seen and examined in the ER. 70 F, uncontrolled DM, right diabetic foot ulcer, chronic osteomyelitis of right foot, diabetic neuropathy, left BKA, OA, Iron deficiency anemia, HLD, HTN, and Charcot's joint. Admitted via the ER due to acute respiratory distress that required endotracheal intubation and mechanical ventilation. No further history is available. CT Chest : LLL atelectasis / multilobar infiltrates and effusion on the right Vital Signs - 24 hr 05/25/20 05/25/20 05/25/20 09:17 09:18 09:20 Temperature 102.1 F H 102.1 F H Pulse Rate 121 H Pulse Rate [ 79 Apical] Respiratory 22 H 30 H Rate Blood Pressure 85/59 L Blood Pressure 78/53 L [Left Arm] O2 Sat by Pulse 74 L 98 Oximetry (%) 05/25/20 05/25/20 05/25/20 09:33 09:45 10:00 Temperature Pulse Rate Pulse Rate [ 80 79 80 Apical] Respiratory 28 H 28 H 29 H Rate Blood Pressure Blood Pressure 91/59 L 93/61 93/61 [Left Arm] O2 Sat by Pulse 100 100 100 Oximetry (%) 05/25/20 05/25/20 05/25/20 10:15 10:30 10:31 Temperature Pulse Rate Pulse Rate [ 80 80 Apical] Respiratory 34 H 38 H Rate Blood Pressure Blood Pressure 98/62 99/65 [Left Arm] O2 Sat by Pulse 100 100 100 Oximetry (%) 05/25/20 05/25/20 05/25/20 10:33 10:45 11:28 Temperature Pulse Rate 77 Pulse Rate [ 79 80 Apical] Respiratory 34 H 18 Rate Blood Pressure Blood Pressure 96/65 100/67 [Left Arm] O2 Sat by Pulse 100 100 100 Oximetry (%) 05/25/20 05/25/20 05/25/20 11:45 12:00 12:02 Temperature Pulse Rate Pulse Rate [ 78 81 Apical] Respiratory 21 H 14 21 H Rate Blood Pressure Blood Pressure 101/72 105/68 [Left Arm] O2 Sat by Pulse 100 100 Oximetry (%) 0805/25/20 05/25/20 12:15 12:30 12:33 Temperature Pulse Rate 84 Pulse Rate [ 84 83 Apical] Respiratory 16 16 15 Rate Blood Pressure Blood Pressure 109/83 117/81 [Left Arm] O2 Sat by Pulse 100 100 100 Oximetry (%) 05/25/20 05/25/20 05/25/20 13:00 13:15 13:30 Temperature 98.5 F 98.1 F Pulse Rate Pulse Rate [ 82 80 83 Apical] Respiratory 16 16 16 Rate Blood Pressure Blood Pressure 105/73 120/73 117/74 [Left Arm] O2 Sat by Pulse 100 100 100 Oximetry (%) 05/25/20 13:45 Temperature 98.2 F Pulse Rate Pulse Rate [ 81 Apical] Respiratory 14 Rate Blood Pressure Blood Pressure 103/66 [Left Arm] O2 Sat by Pulse 100 Oximetry (%) GENERAL: Intubated and sedated HEAD: Normal with no signs of trauma. EYES: sclera anicteric, conjunctiva clear. EARS, NOSE, THROAT: dry mucous membranes. NECK: Normal range of motion, supple without lymphadenopathy, JVD, or masses. LUNGS: Vented, bilateral coarse rhonchi Right > Left. No wheezes. HEART: Regular rate and rhythm, normal S1 and S2 without murmur, rub or gallop. ABDOMEN: Soft, nontender, not distended, normoactive bowel sounds, no guarding, no rebound, no masses. No hepatomegaly or splenomegaly. MUSCULOSKELETAL: Normal range of motion at all joints. No bony deformities or tenderness. No CVA tenderness. UPPER EXTREMITIES: 2+ pulses, warm, well-perfused. No cyanosis. No clubbing. Cap refill <2 seconds. No peripheral edema. LOWER EXTREMITIES: LLE BKA NEUROLOGICAL: Sedated, non-focal PSYCHIATRIC: Sedated SKIN: Warm, dry, normal turgor, no rashes or lesions noted. Laboratory Results - last 24 hr 05/25/20 05/25/20 05/25/20 09:28 09:40 09:40 WBC 24.6 H RBC 3.95 Hgb 10.6 L Hct 33.9 MCV 85.9 MCH 26.8 MCHC 31.2 L RDW 19.3 H Plt Count 251 MPV 9.3 Absolute Neuts (auto) 22.0 H Neutrophils % 89.5 H Neutrophils % (Manual) 91.0 H Band Neutrophils % 0.0 Lymphocytes % 4.3 L D Lymphocytes % (Manual) 5.0 L D Monocytes % 5.9 Monocytes % (Manual) 2 L Eosinophils % 0.0 D Eosinophils % (Manual) 0.0 Basophils % 0.3 Basophils % (Manual) 0.0 Myelocytes % (Man) 1 D Promyelocytes % (Man) 0 Blast Cells % (Manual) 0 Nucleated RBC % 0 Metamyelocytes 1 D Hypochromia 1+ Platelet Estimate Normal Platelet Comment Rare giant plts Poikilocytosis 1+ Bradley Cells 1+ Rouleaux 2+ PT with INR 23.00 H INR 1.94 H PTT (Actin FS) 43.3 H VBG pH POC VBG pCO2 POC VBG pO2 VBG HCO3 VBG O2 Sat (Alfredo) VBG Base Excess Sodium Potassium Chloride Carbon Dioxide Anion Gap BUN Creatinine Est GFR (CKD-EPI)AfAm Est GFR (CKD-EPI)NonAf POC Glucometer 121 Random Glucose Lactic Acid Calcium Ferritin Total Bilirubin AST ALT Alkaline Phosphatase LD Total Creatine Kinase Creatine Kinase Index CK-MB (CK-2) Troponin I C-Reactive Protein B-Natriuretic Peptide Total Protein Albumin Urine Color Urine Appearance Urine pH Ur Specific [place] Urine Protein Urine Glucose (UA) Urine Ketones Urine Blood Urine Nitrite Urine Bilirubin Urine Urobilinogen Ur Leukocyte Esterase Urine WBC (Auto) Urine RBC (Auto) Urine Casts (Auto) U Epithel Cells (Auto) Urine Bacteria (Auto) Urine Yeast (Auto) 05/25/20 05/25/20 05/25/20 09:40 09:40 09:40 WBC RBC Hgb Hct MCV MCH MCHC RDW Plt Count MPV Absolute Neuts (auto) Neutrophils % Neutrophils % (Manual) Band Neutrophils % Lymphocytes % Lymphocytes % (Manual) Monocytes % Monocytes % (Manual) Eosinophils % Eosinophils % (Manual) Basophils % Basophils % (Manual) Myelocytes % (Man) Promyelocytes % (Man) Blast Cells % (Manual) Nucleated RBC % Metamyelocytes Hypochromia Platelet Estimate Platelet Comment Poikilocytosis Bradley Cells Rouleaux PT with INR INR PTT (Actin FS) VBG pH POC VBG pCO2 POC VBG pO2 VBG HCO3 VBG O2 Sat (Alfredo) VBG Base Excess Sodium 135 L Potassium 6.3 H* Chloride 97 L Carbon Dioxide 19 L Anion Gap 19 H BUN 53.2 H Creatinine 2.8 H Est GFR (CKD-EPI)AfAm 19.04 Est GFR (CKD-EPI)NonAf 16.43 POC Glucometer Random Glucose 119 H Lactic Acid 10.4 H* Calcium 9.2 Ferritin QNS Total Bilirubin 1.2 H AST 1416 H ALT 906 H Alkaline Phosphatase 328 H LD Total > 1000 H Creatine Kinase 169 Creatine Kinase Index 0.5 CK-MB (CK-2) 1.0 Troponin I 0.35 H C-Reactive Protein 9.5 H B-Natriuretic Peptide 85806.5 H Total Protein 8.1 Albumin 2.2 L Urine Color Yellow Urine Appearance Clear Urine pH 5.5 Ur Specific [place] 1.016 Urine Protein 2+ H Urine Glucose (UA) 2+ H Urine Ketones Negative Urine Blood 2+ H Urine Nitrite Negative Urine Bilirubin Negative Urine Urobilinogen 0.2 Ur Leukocyte Esterase 2+ H Urine WBC (Auto) 413 Urine RBC (Auto) 11 Urine Casts (Auto) 0 U Epithel Cells (Auto) 2 Urine Bacteria (Auto) 377 Urine Yeast (Auto) Positive 05/25/20 05/25/20 09:40 14:35 WBC RBC Hgb Hct MCV MCH MCHC RDW Plt Count MPV Absolute Neuts (auto) Neutrophils % Neutrophils % (Manual) Band Neutrophils % Lymphocytes % Lymphocytes % (Manual) Monocytes % Monocytes % (Manual) Eosinophils % Eosinophils % (Manual) Basophils % Basophils % (Manual) Myelocytes % (Man) Promyelocytes % (Man) Blast Cells % (Manual) Nucleated RBC % Metamyelocytes Hypochromia Platelet Estimate Platelet Comment Poikilocytosis Damián Cells Rouleaux PT with INR INR PTT (Actin FS) VBG pH 7.292 L POC VBG pCO2 43.8 POC VBG pO2 39.7 VBG HCO3 20.7 L VBG O2 Sat (Alfredo) 68.7 L VBG Base Excess -5.7 L Sodium 139 Potassium 4.4 Chloride 104 Carbon Dioxide 26 Anion Gap 10 BUN 51.6 H Creatinine 2.9 H Est GFR (CKD-EPI)AfAm 18.25 Est GFR (CKD-EPI)NonAf 15.74 POC Glucometer Random Glucose 185 H Lactic Acid Calcium 8.4 L Ferritin Total Bilirubin 0.9 AST 4355 H ALT 1951 H Alkaline Phosphatase 295 H LD Total Creatine Kinase Creatine Kinase Index CK-MB (CK-2) Troponin I 0.81 H* C-Reactive Protein B-Natriuretic Peptide Total Protein 6.7 Albumin 2.0 L Urine Color Urine Appearance Urine pH Ur Specific [place] Urine Protein Urine Glucose (UA) Urine Ketones Urine Blood Urine Nitrite Urine Bilirubin Urine Urobilinogen Ur Leukocyte Esterase Urine WBC (Auto) Urine RBC (Auto) Urine Casts (Auto) U Epithel Cells (Auto) Urine Bacteria (Auto) Urine Yeast (Auto) ASSESSMENT/PLAN: Acute Respiratory Failure due to Multi-lobar PNA R/O Aspiration Uncontrolled DM Right diabetic foot ulcer Chronic osteomyelitis of right foot Diabetic neuropathy Left BKA OA Iron deficiency anemia HLD HTN Charcot's joint AC Mode of vent Check ABG Grady-culture Broad ABX coverage : Noted ID evaluation was called Strict I & O IVF Pressors for MAP < 65 VTE prophylaxis Glycemic control Requires ICU monitoring Dr Reyes Critical care time spent in reviewing chart, evaluating patient and formulating plan - 36 minutes
[2020-05-25 16:15] LABS: ARTERIAL BLD GAS O2 SATURATION 99.8 mmHg (95-98); ARTERIAL BLOOD GAS BASE EXCESS -0.4 mmol/L (-2-2); ARTERIAL BLOOD GAS PO2 380.6 mmHg (80-100); ARTERIAL BLOOD GAS pH 7.432 (7.350-7.450)
[2020-05-25 16:16] LABS: ALLENS TEST POSITIVE
[2020-05-25 16:17] LABS: VENT MODE AC; VENT RATE 14
[2020-05-25] MEDS ORDERED: PIPERACILLIN/TAZOBACTAM 3.375 GM VIAL IVPB ONE ×2 (17:00→21:40)
[2020-05-25] MEDS ORDERED: DEXTROSE 5%-WATER - 50 ML IVPB ONE ×2 (17:01→21:40)
[2020-05-25] MEDS: PIPERACILLIN/TAZOB 3.375 GM 3.375 GM in DEXTROSE 5%-WATER - 50 ML IVPB SCH ×2 (17:14→22:28)
--- NOTE | 2020-05-25 17:33 | CON.NEP ---
Consult Consult Specialty:: Nephrology Referred by:: ICU Reason for Consultation:: Acute kidney injury - History of Present Illness Chief Complaint: Respiratory failure History of Present Illness: This is a 70 year old woman with history of systolic heart failure, CKD with baseline Cr of 1.4, DM, Chronic osteomylitis who presented form the [place] with respiratory distress and found to have respiratory failure requiring intubation with acute kidney injury. Pt seen and examined in the ICU, currently orally intubated. Pt not able to provide history. S/p recent hospital discharge s/p admission for HF. Cr was 1.4 on discharge. s - History Source History Provided By: Medical Record Limitations to Obtaining History: Clinical Condition - Past Medical History Cardio/Vascular: Yes: HTN, Hyperlipdemia ...: No Endocrine: Yes: Diabetes Mellitus (DM II) - Alcohol/Substance Use Hx Alcohol Use: No History of Substance Use: reports: None - Smoking History Smoking history: Never smoked Have you smoked in the past 12 months: No - Social History ADL: Support Services History of Recent Travel: No ([place]) Home Medications - Allergies Allergies/Adverse Reactions: Allergies Allergy/AdvReac Type Severity Reaction Status Date / Time No Known Allergies Allergy Verified 05/25/20 10:04 - Home Medications Home Medications: Ambulatory Orders Aspirin 81 mg PO DAILY 05/11/20 Atorvastatin Ca [Lipitor] 80 mg PO HS 05/11/20 Gabapentin 100 mg PO QID 05/11/20 Gabapentin 300 mg PO HS 05/11/20 Losartan Potassium 25 mg PO DAILY 05/11/20 Sennosides [Senno] 17.2 mg PO HS 05/11/20 Torsemide [Demadex -] 80 mg PO DAILY@0600 tablet 05/21/20 Chlorhexidine Gluconate [Hibiclens For Decolonization -] 1 applic TP DAILY 05/25/20 Glucagon - 1 mg IJ PRN 05/25/20 Insulin Glargine,Hum.rec.anlog [Basaglar Trevapen U-100] 17 unit SQ HS 05/25/20 Insulin Lispro [Admelog Solostar] 7 unit SQ AC 05/25/20 Metoprolol Tartrate [Lopressor -] 50 mg PO DAILY 05/25/20 Polyethylene Glycol 3350 [Glycolax] 17 gm PO DAILY PRN 05/25/20 Family Medical History Family History: Unable to Obtain Review of Systems Unable to obtain ROS, reason: intubated Nephrology Consult - Height Height: 5 ft 5 in - Weight Weight: 81.647 kg - BMI Body Mass Index (BMI): 29.9 - Lab Results CBC,BMP: CBC, BMP 05/25/20 09:40 05/25/20 14:35 Anion Gap: Anion Gap Anion Gap 10 MMOL/L (8-16) 05/25/20 14:35 - Imaging Chest X-ray: Report Reviewed, Image Reviewed Cat Scan: Report Reviewed - Physical Examination Vital Signs: Vital Signs Temperature 97.5 F L 05/25/20 15:15 Pulse Rate 77 05/25/20 15:45 Respiratory Rate 19 05/25/20 16:20 Blood Pressure 127/84 05/25/20 15:45 O2 Sat by Pulse Oximetry (%) 97 05/25/20 16:20 Constitutional: Yes: No Distress, Other (orally intubated) HENT: Yes: Atraumatic Cardiovascular: Yes: Regular Rate and Rhythm Respiratory: Yes: Regular, Diminished, Mechanically Ventilated, Rales, Rhonchi Gastrointestinal: Yes: Soft, Distention. No: Tenderness Renal/: Yes: Lynn Present. No: Bladder Distention Extremities: No: Cold, Cool, Cyanosis Edema: Yes Neurological: Yes: Other (sedated) Assessment/Plan 70 year old woman with history of systolic heart failure, CKD with baseline Cr of 1.4, DM, Chronic osteomylitis who presented form the [place] with respiratory distress and found to have respiratory failure requiring intubation with acute kidney injury. 1. Acute respiratory failure secondary to suspected pneumonia 2. Sepsis from UTI vs. PNA 3. Lactic acidosis in setting of sepsis 4. Acute on chronic renal insufficiency secondary to sepsis/renal hypoprofusion 5. Hx of CHF/Pleural effusions 6. Elevated troponins 7. Hyperkalemia Hyperkalemia resolved s/p medical management, there is no acute need for renal replacement therapy. Would monitor BMP Q8h for the first 24 hours. Check urine studies. Would continue aggressive IVF hydration to maintain MAP > 65 Trend Lactic acid not normal Vent support, titrate O2 as needed per ICU Hold diuretics/KCL supplements Continue empiric antibiotics as per ICU/ID f/u cultures Thank you Will follow Joaquín Berry DO
--- NOTE | 2020-05-25 17:45 | HP ---
Admitting History and Physical - Primary Care Physician PCP: Pillo Yuan - Admission Chief Complaint: Sepsis History of Present Illness: 70 year old female with a significant PMHx of Uncontrolled DM, Diabetic foot ulcer on R. foot, Chronic osteomyelitis of right foot, Diabetic neuropathy, Left leg below knee amputation, OA, Iron deficiency anemia, HLD, HTN, Charcot's joint, ESBL resistance and CHF who presents to the ED from [facility] for evaluation of hypoxia and AMS. The patient was previously discharged on 05/23 after having been treated for G(-) Bacteremia. History Source: Patient Limitations to Obtaining History: No Limitations - Past Medical History Cardiovascular: Yes: HTN, Hyperlipdemia ...: No Endocrine: Yes: Diabetes Mellitus (DM II) - Smoking History Smoking history: Never smoked Have you smoked in the past 12 months: No - Alcohol/Substance Use Hx Alcohol Use: No History of Substance Use: reports: None - Social History ADL: Support Services History of Recent Travel: No ([place]) Home Medications - Allergies Allergies/Adverse Reactions: Allergies Allergy/AdvReac Type Severity Reaction Status Date / Time No Known Allergies Allergy Verified 05/25/20 10:04 - Home Medications Home Medications: Ambulatory Orders Aspirin 81 mg PO DAILY 05/11/20 Atorvastatin Ca [Lipitor] 80 mg PO HS 05/11/20 Gabapentin 100 mg PO QID 05/11/20 Gabapentin 300 mg PO HS 05/11/20 Losartan Potassium 25 mg PO DAILY 05/11/20 Sennosides [Senno] 17.2 mg PO HS 05/11/20 Torsemide [Demadex -] 80 mg PO DAILY@0600 tablet 05/21/20 Chlorhexidine Gluconate [Hibiclens For Decolonization -] 1 applic TP DAILY 05/25/20 Glucagon - 1 mg IJ PRN 05/25/20 Insulin Glargine,Hum.rec.anlog [Basaglar Kwikpen U-100] 17 unit SQ HS 05/25/20 Insulin Lispro [Admelog Solostar] 7 unit SQ AC 05/25/20 Metoprolol Tartrate [Lopressor -] 50 mg PO DAILY 05/25/20 Polyethylene Glycol 3350 [Glycolax] 17 gm PO DAILY PRN 05/25/20 Family Medical History Family History: Unable to Obtain Review of Systems Unable to obtain ROS, reason: Clinical condition Physical Examination Vital Signs: Vital Signs Temperature 97.5 F L 05/25/20 15:15 Pulse Rate 77 05/25/20 15:45 Respiratory Rate 19 05/25/20 16:20 Blood Pressure 127/84 05/25/20 15:45 O2 Sat by Pulse Oximetry (%) 97 05/25/20 16:20 Constitutional: Yes: Well Nourished, No Distress, Calm Cardiovascular: Yes: Regular Rate and Rhythm Respiratory: Yes: Mechanically Ventilated, Rhonchi (diffuse) Gastrointestinal: Yes: Soft, Hypoactive Bowel Sounds Renal/: Yes: Lynn Present Edema: No Peripheral Pulses WNL: Yes Neurological: Yes: Other (sedated) Labs: CBC, BMP 05/25/20 09:40 05/25/20 14:35 Problem List - Problems (1) Sepsis Assessment/Plan: -ID consult -IV abx -Febrile upon admission -Cultures pending -LA elevated -IVF Problems reviewed: Yes Code(s): A41.9 - SEPSIS, UNSPECIFIED ORGANISM (2) Acute on chronic renal failure Assessment/Plan: -Nephrology consult -2/2 to acute infection Problems reviewed: Yes Code(s): N17.9 - ACUTE KIDNEY FAILURE, UNSPECIFIED; N18.9 - CHRONIC KIDNEY DISEASE, UNSPECIFIED Qualifiers: Acute renal failure type: unspecified Chronic kidney disease stage: unspecified stage Qualified Code(s): N17.9 - Acute kidney failure, unspecified; N18.9 - Chronic kidney disease, unspecified (3) Amyloid disease Problems reviewed: Yes Code(s): E85.9 - AMYLOIDOSIS, UNSPECIFIED (4) Anemia Assessment/Plan: -KARIS in the past -Feosol BID -Monitor H/H Problems reviewed: Yes Code(s): D64.9 - ANEMIA, UNSPECIFIED (5) Pleural effusion Problems reviewed: Yes Code(s): J90 - PLEURAL EFFUSION, NOT ELSEWHERE CLASSIFIED (6) Right lower lobe pneumonia Assessment/Plan: -as above -Mech vent -Pulmonary consult -ICU monitoring -Cardiology consult -Lynn cath Problems reviewed: Yes Code(s): J18.9 - PNEUMONIA, UNSPECIFIED ORGANISM Qualifiers: Pneumonia type: due to unspecified organism Qualified Code(s): J18.9 - Pneumonia, unspecified organism (7) Troponin I above reference range Assessment/Plan: -2/2 to sepsis and demand ischemia -ICU monitoring -Cardiology consult Problems reviewed: Yes Code(s): R79.89 - OTHER SPECIFIED ABNORMAL FINDINGS OF BLOOD CHEMISTRY Assessment/Plan See problem list
[2020-05-25] MEDS ORDERED: PIPERACILLIN/TAZOB 3.375 GM 3.375 GM in DEXTROSE 5%-WATER - 50 ML IVPB SCH (18:00)
[2020-05-25] MEDS: PANTOPRAZOLE SODIUM 40 MG VIAL IVPUSH SCH (18:37)
[2020-05-25 20:31] LABS: BLOOD UREA NITROGEN 58.2 mg/dL (7-18); CALCIUM 8.9 mg/dL (8.5-10.1); POTASSIUM 5.3 mmol/L (3.5-5.1)
[2020-05-25] MEDS: HEPARIN NA (PORCINE) 5,000 UNITS/ML 1ML VIAL SQ SCH (22:23)
[2020-05-25] MEDS: MUPIROCIN 2% TOPICAL OINTMENT FOR DECOLONIZATION NS SCH (22:24)
[2020-05-25] MEDS: CHLORHEXIDINE GLUCONATE 4% CLEANSER FOR DECOLONIZATION TP SCH (22:25)
--- NOTE | 2020-05-25 22:28 | PN ---
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 (short form) - Note 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: Received on sign-out for uptrending trops to contact Dr. Forbes (Cardiology). Dr. Del Real was publications distribution clerk for Dr. Forbes. Troponin uptrending 0.35-->0.81-->1.59. Due to pt's elevated troponin due to sepsis, likely demand ischemia. Pt does not qualify for catheterization due to being intubated and being septic. Does not recommend AC at this time. Recommended echo to look for area of akinesis, repeat EKG and repeat troponin. Dr. Forbes will see pt in the morning regarding initiating anticoagulation if needed.
[2020-05-25] MEDS: INSULIN SLIDING SCALE (NOVOLOG) 1 VIAL SQ SCH (22:52)
[2020-05-26] MEDS ORDERED: PIPERACILLIN/TAZOBACTAM 3.375 GM VIAL IVPB ONE ×2 (01:53→10:02)
[2020-05-26] MEDS ORDERED: DEXTROSE 5%-WATER - 50 ML IVPB ONE ×2 (01:54→10:02)
[2020-05-26] MEDS: PIPERACILLIN/TAZOB 3.375 GM 3.375 GM in DEXTROSE 5%-WATER - 50 ML IVPB SCH ×2 (02:14→10:09)
[2020-05-26] MEDS: INSULIN SLIDING SCALE (NOVOLOG) 1 VIAL SQ SCH ×3 (05:46→22:36)
[2020-05-26 06:45] LABS: BASO % 0.3 % (0-2.0); EOS % 0.6 % (0-4.5); HEMATOCRIT 30.7 % (32.4-45.2); HEMOGLOBIN 9.9 GM/dL (10.7-15.3); LYMPH % 1.9 % (8-40); MCH 27.3 pg (25.7-33.7); MCHC 32.2 g/dl (32.0-36.0); MEAN CELL VOLUME 84.7 fl (80-96); MEAN PLT VOLUME 9.2 fl (7.5-11.1); MONO % 1.5 % (3.8-10.2); NEUT % 95.7 % (42.8-82.8); PLATELET COUNT 234 K/MM3 (134-434); RBC 3.62 M/mm3 (3.60-5.2); RDW 19.2 % (11.6-15.6)
[2020-05-26 06:52] LABS: INR 2.09 (0.83-1.09); PROTHROMBIN TIME (PATIENT) 24.8 SEC (9.7-13.0)
[2020-05-26 06:55] LABS: ACTIVATED PTT 36.2 SECONDS (25.2-36.5)
[2020-05-26] MEDS: HEPARIN NA (PORCINE) 5,000 UNITS/ML 1ML VIAL SQ SCH (07:09)
[2020-05-26 07:21] LABS: ALBUMIN 2.1 g/dl (3.4-5.0); BILIRUBIN,TOTAL 0.9 mg/dL (0.2-1); BLOOD UREA NITROGEN 61.1 mg/dL (7-18); CALCIUM 8.4 mg/dL (8.5-10.1); CREATININE 2.9 mg/dL (0.55-1.3); MAGNESIUM 2.7 mg/dL (1.8-2.4); POTASSIUM 4.7 mmol/L (3.5-5.1); TOT PROT 7.3 g/dl (6.4-8.2)
--- NOTE | 2020-05-26 07:51 | PN ---
Physical Exam: SUBJECTIVE: Patient seen and examined, intubated and sedated OBJECTIVE: Vital Signs Period Temp Pulse Resp BP Sys/Dobson Pulse Ox Last 24 Hr 97.1 F-102.1 F 75-121 9-38 78-159/53-93 74-100 GENERAL: Intubated & Sedated HEAD: Normal with no signs of trauma. EYES: Not assessed NECK: Supple, w/o lymphadenopathy LUNGS: On ventilator. Breath sounds coarse throughout HEART: Regular rate and rhythm, normal S1 and S2 without murmur, rub or gallop. ABDOMEN: Very distended. Fluid wave appreciated UPPER EXTREMITIES: 2+ pulses, warm, well-perfused. No cyanosis. No clubbing. LOWER EXTREMITIES: Left BKA, R foot ulcer lateral aspect. NEUROLOGICAL: Not assessed PSYCHIATRIC: Not assessed Laboratory Results - last 24 hr CBC, BMP 05/26/20 05:16 05/26/20 05:16 Troponin, BNP 05/25/20 05/25/20 05/25/20 09:40 14:35 18:30 Troponin I 0.35 H 0.81 H* 1.59 H* B-Natriuretic Peptide 03282.5 H 05/26/20 05/26/20 05:16 05:16 Troponin I Cancelled 1.82 H* B-Natriuretic Peptide ABG Results ABG pH 7.432 (7.350-7.450) 05/25/20 16:03 ABG HCO3 23.5 mmol/L (22-27) 05/25/20 16:03 ABG O2 Sat (Measured) 99.8 mmHg (95-98) H 05/25/20 16:03 ABG O2 Content No Result Required. 05/25/20 16:03 ABG Base Excess -0.4 mmol/L (-2-2) 05/25/20 16:03 INR, PTT INR 2.09 (0.83-1.09) H 05/26/20 05:16 Active Medications Active Medications Chlorhexidine Gluconate (Hibiclens For Decolonization -) 1 applic TP HS SERAFIN Last Admin: 05/25/20 22:25 Dose: 1 applic Documented by: Collagenase (Santyl -) 1 applic TP DAILY SERAFIN; Protocol Heparin Sodium (Porcine) (Heparin -) 1,000 unit IVPUSH PRN PRN PRN Reason: Heparin Heparin Sodium (Porcine) (Heparin -) 5,000 unit IVPUSH PRN PRN PRN Reason: Heparin Fentanyl (Sublimaze Ivpb) 500 mcg in 100 mls @ 16.329 mls/hr IVPB TITR [facility] Last Admin: 05/26/20 11:35 Dose: 0.31 mcg/kg/hr, 5 mls/hr Documented by: Meropenem 1 gm/ Dextrose 100 mls @ 0 mls/hr IVPB Q12H [facility] Last Admin: 05/26/20 10:28 Dose: 50 mls/hr Documented by: Heparin Sodium (Porcine) 25, (000 unit/ Sodium Chloride) 500 mls @ 20 mls/hr IV TITR [facility]; Protocol Last Admin: 05/26/20 14:06 Dose: 1,000 unit/hr, 20 mls/hr Documented by: Sodium Chloride (Normal Saline -) 1,000 mls @ 100 mls/hr IV ASDIR [facility] Last Admin: 05/26/20 16:58 Dose: 100 mls/hr Documented by: Insulin Aspart (Novolog Vial Sliding Scale -) 1 vial SQ TID [facility]; Protocol Last Admin: 05/26/20 13:30 Dose: 4 units Documented by: Mupirocin (Bactroban Ointment (For Decolonization) -) 1 applic NS BID [facility] Stop: 05/30/20 21:59 Last Admin: 05/26/20 10:10 Dose: 1 applic Documented by: Pantoprazole Sodium (Protonix Iv) 40 mg IVPUSH DAILY [facility] Last Admin: 05/26/20 10:11 Dose: 40 mg Documented by: ASSESSMENT/PLAN: 70 year old female with a significant PMHx of Uncontrolled DM, Diabetic foot ulcer on R. foot, Chronic osteomyelitis of right foot, Diabetic neuropathy, Left leg below knee amputation, OA, Iron deficiency anemia, HLD, HTN, Charcot's joint, ESBL resistance and CHF who presents to the ED from [facility] for evaluation of hypoxia and AMS. The patient was previously discharged on 05/23 after having been treated for G(-) Bacteremia. GENERAL/NEURO -VSS -Sedated & Intubated -Weaning Fio2 -Central line in place (05/25) -Monitor Neuro signs -Will attempt extubation tomorrow (05/27) CARDIAC -History of CHF -ECHO (05/12): EF: 40% Moderate concentric LV hypertrophy, systolic function moderately reduced. Suggestive of infiltrative amyloid cardiomyopathy. Diastolic dysunction (grade 3, restrictive pattern), consistent w/ increased atrial pressure. Mild tricuspid regurg w/ pulmonary htn. -CT Chest: The heart is slightly enlarged. No gross pericardial effusion is identified -Elevated K+: EKG shows no abnormalities -Troponemia: 0.35 (05/25), will trend. Likely due to sepsis --> 1.84 (05/26) -Monitor MAP >65, -Add Levophed as needed PULM -Septic Shock 2/2 likely to pneumonia. Can not rule out UTI -Sedated & Intubated -Fentanyl @ 25 Drip -Vent: 450/14/60/5 -Sputum Cultures, Legionella Cultures sent -CT Chest: Atelectatic changes in the left lung. Moderate elevation of the right hemidiaphragm with consolidation/atelectasis in the right lower lobe and to a lesser extent in the right middle lobe as well as a [id number] right pleural effusion suggestive of pneumonia. -Monitor O2 Sats ENDOCRINE -Hx of Diabetes -ISS TID per protocol -Monitor BG q6 GASTRO -Abdominal Ascites 2/2 to TONIA and chronic CHF -Hepatomegally noted on CT -LFTs elevated, will trend --> Decreasing (05/26) -Heme Consult: likely 2/2 liver disease, with predominant effect on FVII, PTT normal -Fluid Resucitation: NS @ 100 per renal -FOBT Negative RENAL -Pre-renal TONIA likely 2/2 sepsis and hypoperfusion -UA shows 2+ Blood -Lynn in Place: Monitor I/Os -Monitor creatinine -Monitor Potassium: Consider potassium wasting medication, dialysis if necessary. Avoid Lactated Ringers -Monitor Lactic Acid: FU repeat ABG -Consider consulting Dr. Berry Nephrology: 2/2 TONIA in the setting of chronic CHF w/ Ascites INFECTIOUS -Septic Shock likely 2/2 Pneumonia, can not rule out UTI (see UA) -Blood, Urine, Sputum, Legionella Cultures sent -Blood Cx: GNB, awaiting organism (05/26) -Urinalysis: +2 LE, +2 Blood -Covid negative -Zosyn DC -Vanc DC -ID Consulted: Meropenem ordered -Wound Care consulted 2/2 R foot ulcer: No need for surgical intervention (05/26) PPx -Patoprazol -Heparin Drip FEN Fluid: NS @ 100 Electrolytes: Monitor K+, FU BMP Nutrition: NPO, consult ditto machine operator Lines: -Central Line (05/25) -Lynn Catheter (05/25) -ET Tube (05/25) Visit type - Emergency Visit Emergency Visit: No - New Patient This patient is new to me today: Yes Date on this admission: 05/26/20 - Critical Care Critical Care patient: Yes Total Critical Care Time (in minutes): 36 Critical Care Statement: The care of this patient involved high complexity decision making to prevent further life threatening deterioration of the patient's condition and/or to evaluate & treat vital organ system(s) failure or risk of failure. - Discharge Referral Referred to [facility] Med P.C.: No - Medication Review Med list reviewed for High Risk Meds patients 65 and older: Yes ATTENDING PHYSICIAN STATEMENT I saw and evaluated the patient. I reviewed the resident's note and discussed the case with the resident. I agree with the resident's findings and plan as documented. SUBJECTIVE: OBJECTIVE: ASSESSMENT AND PLAN:
--- NOTE | 2020-05-26 09:22 | CON.ID ---
Consult Consult Specialty:: infectious diseases Referred by:: hospitalist Reason for Consultation:: hypoxia,ams - History of Present Illness Chief Complaint: hypoxia,ams History of Present Illness: patient intubated, history taken from the charts 70 year old female with a significant PMHx of Uncontrolled DM, Diabetic foot ulcer on R. foot, Chronic osteomyelitis of right foot, Diabetic neuropathy, Left leg below knee amputation, OA, Iron deficiency anemia, HLD, HTN, Charcot's joint, ESBL resistance and CHF who presents to the ED from [facility] for evaluation of hypoxia and AMS. The patient was previously discharged on 05/23 after having been treated for G(-) Bacteremia. patient went into resp failure and was intubated - History Source History Provided By: Medical Record Limitations to Obtaining History: Clinical Condition - Past Medical History Cardio/Vascular: Yes: HTN, Hyperlipdemia ...: No Endocrine: Yes: Diabetes Mellitus (DM II) - Alcohol/Substance Use Hx Alcohol Use: No History of Substance Use: reports: None - Smoking History Smoking history: Never smoked Have you smoked in the past 12 months: No - Social History ADL: Support Services History of Recent Travel: No ([place]) Home Medications - Allergies Allergies/Adverse Reactions: Allergies Allergy/AdvReac Type Severity Reaction Status Date / Time No Known Allergies Allergy Verified 05/25/20 10:04 - Home Medications Home Medications: Ambulatory Orders Aspirin 81 mg PO DAILY 05/11/20 Atorvastatin Ca [Lipitor] 80 mg PO HS 05/11/20 Gabapentin 100 mg PO QID 05/11/20 Gabapentin 300 mg PO HS 05/11/20 Losartan Potassium 25 mg PO DAILY 05/11/20 Sennosides [Senno] 17.2 mg PO HS 05/11/20 Torsemide [Demadex -] 80 mg PO DAILY@0600 tablet 05/21/20 Chlorhexidine Gluconate [Hibiclens For Decolonization -] 1 applic TP DAILY 05/25/20 Glucagon - 1 mg IJ PRN 05/25/20 Insulin Glargine,Hum.rec.anlog [Basaglar Kwikpen U-100] 17 unit SQ HS 05/25/20 Insulin Lispro [Admelog Solostar] 7 unit SQ AC 05/25/20 Metoprolol Tartrate [Lopressor -] 50 mg PO DAILY 05/25/20 Polyethylene Glycol 3350 [Glycolax] 17 gm PO DAILY PRN 05/25/20 Family Medical History Family History: Unable to Obtain Review of Systems Unable to obtain ROS, reason: unable to obtain Physical Exam Vital Signs: Vital Signs Temperature 97.1 F L 05/26/20 06:00 Pulse Rate 72 05/26/20 08:00 Respiratory Rate 14 05/26/20 08:15 Blood Pressure 97/80 05/26/20 08:00 O2 Sat by Pulse Oximetry (%) 100 05/26/20 08:15 Constitutional: Yes: Other Cardiovascular: Yes: Pulse Irregular Respiratory: Yes: Intubated, Mechanically Ventilated Gastrointestinal: Yes: Normal Bowel Sounds, Soft Musculoskeletal: Yes: WNL Extremities: Yes: Other Labs: CBC, BMP 05/26/20 05:16 05/26/20 05:16 Imaging - Results Chest X-ray: Report Reviewed, Image Reviewed Cat Scan: Report Reviewed, Image Reviewed Assessment/Plan Acute Respiratory Failure due to Multi-lobar PNA R/O Aspiration Uncontrolled DM Right diabetic foot ulcer Chronic osteomyelitis of right foot Diabetic neuropathy Left BKA OA Iron deficiency anemia HLD HTN Charcot's joint plan will change abx to meropenam asp precautions await for all cx reportys close watch nephro on case icu mgmt cc 40 min
[2020-05-26] MEDS ORDERED: MEROPENEM 1 GM in DEXTROSE 5%-WATER 100 ML IVPB SCH (09:45)
--- NOTE | 2020-05-26 09:52 | CONSULT ---
- Consultation REQUESTING PROVIDER: CONSULT REQUEST: We have been asked to surgically evaluate this patient for RLE wound . PCP:Flakito Reyes HISTORY OF PRESENT ILLNESS: 70 yo female with PMHX see below, presented to the ER for evaluation of AMS and hypoxemia from the nursing facility. She was found to have a fever to 102 upon admission. The patient was intubated and remains in the ICU. The patient was recently discharged on 05/21, she was treated for gram negative infection. PMHx: DM , Right diabetic foot ulcer, chronic osteomyelitits of right foot, OA, CHF PSHx: left BKA Home Medications Medication Instructions Recorded Aspirin 81 mg PO DAILY 05/11/20 Atorvastatin Ca [Lipitor] 80 mg PO HS 05/11/20 Gabapentin 100 mg PO QID 05/11/20 Gabapentin 300 mg PO HS 05/11/20 Losartan Potassium 25 mg PO DAILY 05/11/20 Sennosides [Senno] 17.2 mg PO HS 05/11/20 Torsemide [Demadex -] 80 mg PO DAILY@0600 tablet 05/21/20 Chlorhexidine Gluconate [Hibiclens 1 applic TP DAILY 05/25/20 For Decolonization -] Glucagon - 1 mg IJ PRN 05/25/20 Insulin Glargine,Hum.rec.anlog 17 unit SQ HS 05/25/20 [Basaglar Kwikpen U-100] Insulin Lispro [Admelog Solostar] 7 unit SQ AC 05/25/20 Metoprolol Tartrate [Lopressor -] 50 mg PO DAILY 05/25/20 Polyethylene Glycol 3350 [Glycolax] 17 gm PO DAILY PRN 05/25/20 Allergies Allergy/AdvReac Type Severity Reaction Status Date / Time No Known Allergies Allergy Verified 05/25/20 10:04 REVIEW OF SYSTEMS: Unable to obtain, pt intubated PHYSICAL EXAM: GENERAL: Intubated LOWER EXTREMITIES: RLE: +2 DP/PT with doppler pulses, warm to forefoot and toes a little cool, no evidence of ischemia. Chronic wound with partial eschar to lateral/mid foot. no drainage or surrounding erythema. wound 3 x 3cm. b/l femoral pulses +2-palpable. Left BKA healed well. NEUROLOGICAL: Normal speech, gait not observed. Vital Signs Temperature 97.1 F L 05/26/20 06:00 Pulse Rate 72 05/26/20 08:00 Respiratory Rate 14 05/26/20 08:15 Blood Pressure 97/80 05/26/20 08:00 O2 Sat by Pulse Oximetry (%) 100 05/26/20 08:15 Lab Results WBC 23.0 K/mm3 (4.0-10.0) H 05/26/20 05:16 RBC 3.62 M/mm3 (3.60-5.2) 05/26/20 05:16 Hgb 9.9 GM/dL (10.7-15.3) L 05/26/20 05:16 Hct 30.7 % (32.4-45.2) L 05/26/20 05:16 MCV 84.7 fl (80-96) 05/26/20 05:16 MCHC 32.2 g/dl (32.0-36.0) 05/26/20 05:16 RDW 19.2 % (11.6-15.6) H 05/26/20 05:16 Plt Count 234 K/MM3 (134-434) 05/26/20 05:16 INR 2.09 (0.83-1.09) H 05/26/20 05:16 Sodium 137 mmol/L (136-145) 05/26/20 05:16 Potassium 4.7 mmol/L (3.5-5.1) 05/26/20 05:16 Chloride 100 mmol/L (98-107) 05/26/20 05:16 Carbon Dioxide 26 mmol/L (21-32) 05/26/20 05:16 Anion Gap 10 MMOL/L (8-16) 05/26/20 05:16 BUN 61.1 mg/dL (7-18) H 05/26/20 05:16 Creatinine 2.9 mg/dL (0.55-1.3) H 05/26/20 05:16 Random Glucose 228 mg/dL (74-106) H 05/26/20 05:16 Calcium 8.4 mg/dL (8.5-10.1) L 05/26/20 05:[address] scan: Right Lower lobe and middle infiltrate/effusion CT scan of abd: anasarca/ascites Problem List - Problems (1) Diabetic foot ulcer Assessment/Plan: No surgical intervention needed, recommend santyl with wet to dry and alleyvn. Elevate RLE on pillow D/w Dr. Harmon Problems reviewed: Yes Code(s): E11.621 - TYPE 2 DIABETES MELLITUS WITH FOOT ULCER; L97.509 - NON- PRESSURE CHRONIC ULCER OTH PRT UNSP FOOT W UNSP SEVERITY Qualifiers: Diabetes mellitus type: type 1 Laterality: right (2) Acute on chronic renal failure Assessment/Plan: pt with TONIA on chronic kidney disease, renal f/u. Please consult vascular surgery as needed for any vascular/HD needs. Problems reviewed: Yes Code(s): N17.9 - ACUTE KIDNEY FAILURE, UNSPECIFIED; N18.9 - CHRONIC KIDNEY DISEASE, UNSPECIFIED Qualifiers: Acute renal failure type: unspecified Chronic kidney disease stage: unspecified stage Qualified Code(s): N17.9 - Acute kidney failure, unspecified; N18.9 - Chronic kidney disease, unspecified
[2020-05-26] MEDS ORDERED: SODIUM ZIRCONIUM CYCLOSILICATE (LOKELMA) 5 GM PACKET NR ONE ×2 (10:00→10:30)
[2020-05-26] MEDS ORDERED: DEXTROSE 5%-WATER 100 ML IVPB ONE ×2 (10:02→22:08)
[2020-05-26] MEDS ORDERED: MEROPENEM 1 GM VIAL (RESTRICTED TO ID) IVPB ONE ×2 (10:02→22:08)
[2020-05-26] MEDS: MUPIROCIN 2% TOPICAL OINTMENT FOR DECOLONIZATION NS SCH ×2 (10:10→22:23)
[2020-05-26] MEDS: PANTOPRAZOLE SODIUM 40 MG VIAL IVPUSH SCH (10:11)
[2020-05-26 10:13] LABS: ANISOCYTOSIS 0; MACROCYTOSIS 0; PLATELET ESTIMATE NORMAL
--- NOTE | 2020-05-26 10:47 | PN ---
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, Physician - Current Medication List Current Medications: Active Medications Chlorhexidine Gluconate (Hibiclens For Decolonization -) 1 applic TP HS [facility] Last Admin: 05/25/20 22:25 Dose: 1 applic Documented by: Collagenase (Santyl -) 1 applic TP DAILY [facility]; Protocol Heparin Sodium (Porcine) (Heparin -) 5,000 unit SQ TID [facility] Last Admin: 05/26/20 07:09 Dose: 5,000 unit Documented by: Fentanyl (Sublimaze Ivpb) 500 mcg in 100 mls @ 16.329 mls/hr IVPB TITR [facility] Last Admin: 05/25/20 14:48 Dose: 0.31 mcg/kg/hr, 5 mls/hr Documented by: Sodium Chloride (Normal Saline -) 1,000 mls @ 125 mls/hr IV ASDIR [facility] Last Admin: 05/25/20 17:15 Dose: 125 mls/hr Documented by: Meropenem 1 gm/ Dextrose 100 mls @ 0 mls/hr IVPB Q12H [facility] Last Admin: 05/26/20 10:28 Dose: 50 mls/hr Documented by: Insulin Aspart (Novolog Vial Sliding Scale -) 1 vial SQ TID [facility]; Protocol Last Admin: 05/26/20 05:46 Dose: 2 units Documented by: Mupirocin (Bactroban Ointment (For Decolonization) -) 1 applic NS BID [facility] Stop: 05/30/20 21:59 Last Admin: 05/26/20 10:10 Dose: 1 applic Documented by: Pantoprazole Sodium (Protonix Iv) 40 mg IVPUSH DAILY [facility] Last Admin: 05/26/20 10:11 Dose: 40 mg Documented by: - Objective Vital Signs: Vital Signs Temperature 97.1 F L 05/26/20 06:00 Pulse Rate 79 05/26/20 10:00 Respiratory Rate 14 05/26/20 10:00 Blood Pressure 141/81 05/26/20 10:00 O2 Sat by Pulse Oximetry (%) 100 05/26/20 10:00 Cardiovascular: Yes: S1, S2 Respiratory: Yes: Mechanically Ventilated Gastrointestinal: Yes: Normal Bowel Sounds, Soft Extremities: Yes: Amputation (bka) Labs: CBC, BMP 05/26/20 05:16 05/26/20 05:16 INR, PTT INR 2.09 (0.83-1.09) H 05/26/20 05:16 Assessment/Plan - Problems (1) Sepsis Assessment/Plan: -ID consult -IV abx -Febrile upon admission -Cultures pending -LA elevated -IVF Problems reviewed: Yes Code(s): A41.9 - SEPSIS, UNSPECIFIED ORGANISM (2) Acute on chronic renal failure Assessment/Plan: -Nephrology consult -2/2 to acute infection Problems reviewed: Yes Code(s): N17.9 - ACUTE KIDNEY FAILURE, UNSPECIFIED; N18.9 - CHRONIC KIDNEY DISEASE, UNSPECIFIED Qualifiers: Acute renal failure type: unspecified Chronic kidney disease stage: unspecified stage Qualified Code(s): N17.9 - Acute kidney failure, unspecified; N18.9 - Chronic kidney disease, unspecified (3) Amyloid disease Problems reviewed: Yes Code(s): E85.9 - AMYLOIDOSIS, UNSPECIFIED (4) Anemia Assessment/Plan: -KARIS in the past -Feosol BID -Monitor H/H Problems reviewed: Yes Code(s): D64.9 - ANEMIA, UNSPECIFIED (5) Pleural effusion Problems reviewed: Yes Code(s): J90 - PLEURAL EFFUSION, NOT ELSEWHERE CLASSIFIED (6) Right lower lobe pneumonia Assessment/Plan: -as above -Mech vent -Pulmonary consult -ICU monitoring -Cardiology consult -Lynn cath Problems reviewed: Yes Code(s): J18.9 - PNEUMONIA, UNSPECIFIED ORGANISM Qualifiers: Pneumonia type: due to unspecified organism Qualified Code(s): J18.9 - Pneumonia, unspecified organism (7) Troponin I above reference range Assessment/Plan: -2/2 to sepsis and demand ischemia -ICU monitoring -Cardiology consult Problems reviewed: Yes Code(s): R79.89 - OTHER SPECIFIED ABNORMAL FINDINGS OF BLOOD CHEMISTRY
[2020-05-26] MEDS: FENTANYL NS IVPB 500 MCG/100 ML BAG IVPB SCH (11:35)
--- NOTE | 2020-05-26 12:37 | PN ---
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 foot, Chronic osteomyelitis of right foot, Diabetic neuropathy, Left leg below knee amputation, OA, Iron deficiency anemia, HLD, HTN, Charcot's joint, ESBL re sistance and who presents to the ED from [place] for evaluation of hypoxia and AMS. The patient was previously discharged on 05/23 after having been treated for G(-) Bacteremia. History Source: Patient - Current Medication List Current Medications: Active Medications Chlorhexidine Gluconate (Hibiclens For Decolonization -) 1 applic TP HS [facility] Last Admin: 05/25/20 22:25 Dose: 1 applic Documented by: Collagenase (Santyl -) 1 applic TP DAILY [facility]; Protocol Heparin Sodium (Porcine) (Heparin -) 1,000 unit IVPUSH PRN PRN PRN Reason: Heparin Heparin Sodium (Porcine) (Heparin -) 5,000 unit IVPUSH PRN PRN PRN Reason: Heparin Fentanyl (Sublimaze Ivpb) 500 mcg in 100 mls @ 16.329 mls/hr IVPB TITR [facility] Last Admin: 05/26/20 11:35 Dose: 0.31 mcg/kg/hr, 5 mls/hr Documented by: Sodium Chloride (Normal Saline -) 1,000 mls @ 125 mls/hr IV ASDIR [facility] Last Admin: 05/25/20 17:15 Dose: 125 mls/hr Documented by: Meropenem 1 gm/ Dextrose 100 mls @ 0 mls/hr IVPB Q12H [facility] Last Admin: 05/26/20 10:28 Dose: 50 mls/hr Documented by: Heparin Sodium (Porcine) 25, (000 unit/ Sodium Chloride) 500 mls @ 20 mls/hr IV TITR [facility]; Protocol Insulin Aspart (Novolog Vial Sliding Scale -) 1 vial SQ TID [facility]; Protocol Last Admin: 05/26/20 05:46 Dose: 2 units Documented by: Mupirocin (Bactroban Ointment (For Decolonization) -) 1 applic NS BID [facility] Stop: 05/30/20 21:59 Last Admin: 05/26/20 10:10 Dose: 1 applic Documented by: Pantoprazole Sodium (Protonix Iv) 40 mg IVPUSH DAILY [facility] Last Admin: 05/26/20 10:11 Dose: 40 mg Documented by: - Objective Vital Signs: Vital Signs Temperature 97.1 F L 05/26/20 06:00 Pulse Rate 79 05/26/20 10:00 Respiratory Rate 14 05/26/20 10:30 Blood Pressure 141/81 05/26/20 10:00 O2 Sat by Pulse Oximetry (%) 100 05/26/20 10:30 Eyes: Yes: WNL, Conjunctiva Clear, EOM Intact HENT: Yes: WNL, Atraumatic, Normocephalic Neck: Yes: WNL, Supple, Trachea Midline Cardiovascular: Yes: WNL, Regular Rate and Rhythm Respiratory: Yes: Diminished, Intubated, Mechanically Ventilated Gastrointestinal: Yes: WNL, Normal Bowel Sounds Genitourinary: Yes: WNL Musculoskeletal: Yes: WNL Extremities: Yes: Amputation Edema: No Integumentary: Yes: WNL Neurological: Yes: WNL, Alert, Oriented ...Motor Strength: WNL Psychiatric: Yes: WNL Labs: CBC, BMP 05/26/20 05:16 05/26/20 05:16 INR, PTT INR 2.09 (0.83-1.09) H 05/26/20 05:16 Problem List - Problems (1) Diabetic foot ulcer Code(s): E11.621 - TYPE 2 DIABETES MELLITUS WITH FOOT ULCER; L97.509 - NON- PRESSURE CHRONIC ULCER OTH PRT UNSP FOOT W UNSP SEVERITY Qualifiers: Diabetes mellitus type: type 1 Laterality: right (2) Sepsis Code(s): A41.9 - SEPSIS, UNSPECIFIED ORGANISM (3) Septic shock Code(s): A41.9 - SEPSIS, UNSPECIFIED ORGANISM; R65.21 - SEVERE SEPSIS WITH SEPTIC SHOCK (4) Acute on chronic renal failure Code(s): N17.9 - ACUTE KIDNEY FAILURE, UNSPECIFIED; N18.9 - CHRONIC KIDNEY DISEASE, UNSPECIFIED Qualifiers: Acute renal failure type: unspecified Chronic kidney disease stage: unspecified stage Qualified Code(s): N17.9 - Acute kidney failure, un specified; N18.9 - Chronic kidney disease, unspecified (5) Amyloid disease Code(s): E85.9 - AMYLOIDOSIS, UNSPECIFIED (6) Anemia Code(s): D64.9 - ANEMIA, UNSPECIFIED (7) Bacteremia Code(s): R78.81 - BACTEREMIA (8) CHF (congestive heart failure) Code(s): I50.9 - HEART FAILURE, UNSPECIFIED Qualifiers: Heart failure type: unspecified Heart failure chronicity: unspecified Qualified Code(s): I50.9 - Heart failure, unspecified (9) Elevated liver enzymes Code(s): R74.8 - ABNORMAL LEVELS OF OTHER SERUM ENZYMES (10) Pleural effusion Code(s): J90 - PLEURAL EFFUSION, NOT ELSEWHERE CLASSIFIED (11) Right lower lobe pneumonia Code(s): J18.9 - PNEUMONIA, UNSPECIFIED ORGANISM Qualifiers: Pneumonia type: due to unspecified organism Qualified Code(s): J18.9 - Pneumonia, unspecified organism (12) Troponin I above reference range Code(s): R79.89 - OTHER SPECIFIED ABNORMAL FINDINGS OF BLOOD CHEMISTRY Assessment/Plan CHF 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 foot, Chronic osteomyelitis of right foot, Diabetic neuropathy, Left leg below knee amputation, OA, Iron deficiency anemia, HLD, HTN, Charcot's joint, ESBL resistance and CHF who presents to the ED from [place] for evaluation of hypoxia and AMS requiring intubation. Suspected multilobar pnemonia and sepsis. Plan; ABX as per ID currently hemodynamicaly stable off pressors DVT plx cont cardiac meds Amyloidosis w/u at [facility] pending
[2020-05-26] MEDS ORDERED: PT OWN MED DRAWER 7, Y5N ONE (13:08)
--- NOTE | 2020-05-26 13:11 | CONSULT ---
Consultation: Heme-Onc Resident note REQUESTING PROVIDER: Dr. Reyes CONSULT REQUEST: We have been asked to medically evaluate this patient for elevated INR. HISTORY OF PRESENT ILLNESS: Patient is a 70 year old female with past medical history of DM, Right DM foot ulcer, chronic osteomyelitis, Left BKA, CHF, CKD, OA, KARIS, HTN, HLD, Charcot's joints, presented to the ED in respiratory distress and was subsequently intubated. Patient still intubated, sedated, unable to provide history. History obtained from patient's chart. Patient was admitted for acute respiratory failure 2/[address] AP was done which showed hepatomegaly with ascites. Labs showed WBC 23, Hgb 9.9. Elevated PT 24.8, INR 2.09, elevated LFTs 2187/1768/300, elevated trop. Blood cultures positive for gram negative bacilli. Patient was started on IV abx and heparin gtt. We were consulted for further evaluation of elevated PT/INR. PMHx: DM, Right DM foot ulcer, chronic osteomyelitis, Left BKA, CHF, CKD, OA, KARIS, HTN, HLD, Charcot's joints PSHx: Rt eye cataract surgery, Left below knee amputation Allergies:NKDA SHx: from [facility] REVIEW OF SYSTEMS: unable to obtain as patient is intubated, sedated PHYSICAL EXAMINATION Vital Signs - 24 hr 05/25/20 05/25/20 05/25/20 13:00 13:15 13:30 Temperature 98.5 F 98.1 F Pulse Rate Pulse Rate [ 82 80 83 Apical] Respiratory 16 16 16 Rate Blood Pressure Blood Pressure 105/73 120/73 117/74 [Left Arm] O2 Sat by Pulse 100 100 100 Oximetry (%) 05/25/20 05/25/20 05/25/20 13:43 13:45 14:00 Temperature 98.2 F Pulse Rate Pulse Rate [ 81 75 Apical] Respiratory 19 14 20 Rate Blood Pressure Blood Pressure 103/66 93/62 [Left Arm] O2 Sat by Pulse 100 100 100 Oximetry (%) 05/25/20 05/25/20 05/25/20 14:30 15:00 15:15 Temperature 97.9 F 97.6 F 97.5 F L Pulse Rate 78 Pulse Rate [ 76 78 Apical] Respiratory 16 20 16 Rate Blood Pressure 137/81 Blood Pressure 106/67 141/81 [Left Arm] O2 Sat by Pulse 100 100 100 Oximetry (%) 05/25/20 05/25/20 05/25/20 15:30 15:45 16:20 Temperature Pulse Rate Pulse Rate [ 79 77 Apical] Respiratory 20 15 19 Rate Blood Pressure Blood Pressure 138/88 127/84 [Left Arm] O2 Sat by Pulse 100 100 97 Oximetry (%) 05/25/20 05/25/20 05/25/20 16:30 18:00 20:00 Temperature 97.7 F 97.7 F Pulse Rate 80 81 Pulse Rate [ Apical] Respiratory 19 19 15 Rate Blood Pressure 150/93 147/90 156/87 Blood Pressure [Left Arm] O2 Sat by Pulse 100 99 100 Oximetry (%) 05/25/20 05/25/20 05/26/20 20:20 22:00 00:00 Temperature Pulse Rate 78 80 Pulse Rate [ Apical] Respiratory 14 10 11 Rate Blood Pressure 159/86 153/85 Blood Pressure [Left Arm] O2 Sat by Pulse 100 100 100 Oximetry (%) 05/26/20 05/26/20 05/26/20 00:18 02:00 04:00 Temperature Pulse Rate 76 78 Pulse Rate [ Apical] Respiratory 18 9 L 14 Rate Blood Pressure 136/82 136/80 Blood Pressure [Left Arm] O2 Sat by Pulse 100 100 Oximetry (%) 05/26/20 05/26/20 05/26/20 04:20 06:00 07:00 Temperature 97.1 F L Pulse Rate 78 Pulse Rate [ Apical] Respiratory 14 14 14 Rate Blood Pressure 143/79 Blood Pressure [Left Arm] O2 Sat by Pulse 100 100 100 Oximetry (%) 05/26/20 05/26/20 05/26/20 08:00 08:15 09:00 Temperature Pulse Rate 72 Pulse Rate [ Apical] Respiratory 14 14 14 Rate Blood Pressure 97/80 Blood Pressure [Left Arm] O2 Sat by Pulse 100 100 100 Oximetry (%) 05/26/20 05/26/20 05/26/20 10:00 10:30 12:00 Temperature Pulse Rate 79 83 Pulse Rate [ Apical] Respiratory 14 14 14 Rate Blood Pressure 141/81 128/76 Blood Pressure [Left Arm] O2 Sat by Pulse 100 100 100 Oximetry (%) GENERAL: intubated, sedated NECK: supple LUNGS: vented breath sounds, coarse bilaterally HEART: Regular rate and rhythm, normal S1 and S2 ABDOMEN: Soft, nontender, not distended, normoactive bowel sounds LOWER EXTREMITIES: 2+ pulses, warm, well-perfused RLE, LLE BKA SKIN: Warm, dry, normal turgor Laboratory Results - last 24 hr 05/25/20 05/25/20 05/25/20 09:40 09:40 14:25 WBC RBC Hgb Hct MCV MCH MCHC RDW Plt Count MPV Absolute Neuts (auto) Neutrophils % Neutrophils % (Manual) 91.0 H Band Neutrophils % 0.0 Lymphocytes % Lymphocytes % (Manual) 5.0 L D Monocytes % Monocytes % (Manual) 2 L Eosinophils % Eosinophils % (Manual) 0.0 Basophils % Basophils % (Manual) 0.0 Myelocytes % (Man) 1 D Promyelocytes % (Man) 0 Blast Cells % (Manual) 0 Nucleated RBC % Metamyelocytes 1 D Hypochromia 1+ Platelet Estimate Normal Platelet Comment Rare giant plts Polychromasia Poikilocytosis 1+ Anisocytosis Microcytosis Macrocytosis Damián Cells 1+ Rouleaux 2+ PT with INR INR PTT (Actin FS) Anticoagulation Therapy Puncture Site Patient Temperature ABG pH ABG pCO2 ABG pO2 ABG HCO3 ABG O2 Sat (Measured) ABG O2 Content ABG Base Excess Jamin Test Patient On Oxygen O2 Delivery Device Oxygen Flow Rate Vent Mode Vent Rate Mechanical Rate PEEP Pressure Support Vent Sodium Potassium Chloride Carbon Dioxide Anion Gap BUN Creatinine Est GFR (CKD-EPI)AfAm Est GFR (CKD-EPI)NonAf POC Glucometer Random Glucose Lactic Acid 6.0 H* Calcium Phosphorus Magnesium Total Bilirubin AST ALT Alkaline Phosphatase Troponin I Total Protein Albumin Ur Random Creatinine U Random Total Protein Ur Random Sodium Ur Random Urea Nitrogn Stool Occult Blood COVID-19 (BETHEL) Not detected 05/25/20 05/25/20 05/25/20 14:35 16:03 18:30 WBC RBC Hgb Hct MCV MCH MCHC RDW Plt Count MPV Absolute Neuts (auto) Neutrophils % Neutrophils % (Manual) Band Neutrophils % Lymphocytes % Lymphocytes % (Manual) Monocytes % Monocytes % (Manual) Eosinophils % Eosinophils % (Manual) Basophils % Basophils % (Manual) Myelocytes % (Man) Promyelocytes % (Man) Blast Cells % (Manual) Nucleated RBC % Metamyelocytes Hypochromia Platelet Estimate Platelet Comment Polychromasia Poikilocytosis Anisocytosis Microcytosis Macrocytosis Damián Cells Rouleaux PT with INR INR PTT (Actin FS) Anticoagulation Therapy No Result Required. Puncture Site Right radial Patient Temperature No Result Required. ABG pH 7.432 ABG pCO2 36.10 ABG pO2 380.6 H ABG HCO3 23.5 ABG O2 Sat (Measured) 99.8 H ABG O2 Content No Result Required. ABG Base Excess -0.4 Jamin Test Positive Patient On Oxygen Yes O2 Delivery Device Vent Oxygen Flow Rate 100 Vent Mode Ac Vent Rate 14 Mechanical Rate Yes PEEP 5.0 Pressure Support Vent 450 Sodium 139 136 Potassium 4.4 5.3 H Chloride 104 98 Carbon Dioxide 26 24 Anion Gap 10 14 BUN 51.6 H 58.2 H Creatinine 2.9 H 3.0 H Est GFR (CKD-EPI)AfAm 18.25 17.51 Est GFR (CKD-EPI)NonAf 15.74 15.11 POC Glucometer Random Glucose 185 H 233 H Lactic Acid Calcium 8.4 L 8.9 Phosphorus Magnesium Total Bilirubin 0.9 AST 4355 H ALT 1951 H Alkaline Phosphatase 295 H Troponin I 0.81 H* 1.59 H* Total Protein 6.7 Albumin 2.0 L Ur Random Creatinine U Random Total Protein Ur Random Sodium Ur Random Urea Nitrogn Stool Occult Blood COVID-19 (BETHEL) 05/25/20 05/25/20 05/25/20 18:30 20:31 22:36 WBC RBC Hgb Hct MCV MCH MCHC RDW Plt Count MPV Absolute Neuts (auto) Neutrophils % Neutrophils % (Manual) Band Neutrophils % Lymphocytes % Lymphocytes % (Manual) Monocytes % Monocytes % (Manual) Eosinophils % Eosinophils % (Manual) Basophils % Basophils % (Manual) Myelocytes % (Man) Promyelocytes % (Man) Blast Cells % (Manual) Nucleated RBC % Metamyelocytes Hypochromia Platelet Estimate Platelet Comment Polychromasia Poikilocytosis Anisocytosis Microcytosis Macrocytosis Damián Cells Rouleaux PT with INR INR PTT (Actin FS) Anticoagulation Therapy Puncture Site Patient Temperature ABG pH ABG pCO2 ABG pO2 ABG HCO3 ABG O2 Sat (Measured) ABG O2 Content ABG Base Excess Jamin Test Patient On Oxygen O2 Delivery Device Oxygen Flow Rate Vent Mode Vent Rate Mechanical Rate PEEP Pressure Support Vent Sodium Potassium Chloride Carbon Dioxide Anion Gap BUN Creatinine Est GFR (CKD-EPI)AfAm Est GFR (CKD-EPI)NonAf POC Glucometer 248 Random Glucose Lactic Acid 3.3 H* Calcium Phosphorus Magnesium Total Bilirubin AST ALT Alkaline Phosphatase Troponin I Total Protein Albumin Ur Random Creatinine 126.0 U Random Total Protein 315.9 H Ur Random Sodium 22 L Ur Random Urea Nitrogn 224 L Stool Occult Blood COVID-19 (BETHEL) 05/26/20 05/26/20 05/26/20 03:03 05:16 05:16 WBC 23.0 H RBC 3.62 Hgb 9.9 L Hct 30.7 L MCV 84.7 MCH 27.3 MCHC 32.2 RDW 19.2 H Plt Count 234 MPV 9.2 Absolute Neuts (auto) 22.0 H Neutrophils % 95.7 H Neutrophils % (Manual) 86.7 H Band Neutrophils % 8.2 Lymphocytes % 1.9 L D Lymphocytes % (Manual) 2.0 L D Monocytes % 1.5 L Monocytes % (Manual) 1 L Eosinophils % 0.6 D Eosinophils % (Manual) 2.1 D Basophils % 0.3 Basophils % (Manual) 0.0 Myelocytes % (Man) 0 D Promyelocytes % (Man) 0 Blast Cells % (Manual) 0 Nucleated RBC % 0 Metamyelocytes 0 D Hypochromia 0 Platelet Estimate Normal Platelet Comment Present Polychromasia 0 Poikilocytosis 0 Anisocytosis 0 Microcytosis 0 Macrocytosis 0 Spencer Cells Rouleaux PT with INR 24.80 H INR 2.09 H PTT (Actin FS) 36.2 Anticoagulation Therapy Puncture Site Patient Temperature ABG pH ABG pCO2 ABG pO2 ABG HCO3 ABG O2 Sat (Measured) ABG O2 Content ABG Base Excess Jamin Test Patient On Oxygen O2 Delivery Device Oxygen Flow Rate Vent Mode Vent Rate Mechanical Rate PEEP Pressure Support Vent Sodium Potassium Chloride Carbon Dioxide Anion Gap BUN Creatinine Est GFR (CKD-EPI)AfAm Est GFR (CKD-EPI)NonAf POC Glucometer 215 Random Glucose Lactic Acid Calcium Phosphorus Magnesium Total Bilirubin AST ALT Alkaline Phosphatase Troponin I Total Protein Albumin Ur Random Creatinine U Random Total Protein Ur Random Sodium Ur Random Urea Nitrogn Stool Occult Blood COVID-19 (BETHEL) 05/26/20 05/26/20 05/26/20 05:16 05:16 05:33 WBC RBC Hgb Hct MCV MCH MCHC RDW Plt Count MPV Absolute Neuts (auto) Neutrophils % Neutrophils % (Manual) Band Neutrophils % Lymphocytes % Lymphocytes % (Manual) Monocytes % Monocytes % (Manual) Eosinophils % Eosinophils % (Manual) Basophils % Basophils % (Manual) Myelocytes % (Man) Promyelocytes % (Man) Blast Cells % (Manual) Nucleated RBC % Metamyelocytes Hypochromia Platelet Estimate Platelet Comment Polychromasia Poikilocytosis Anisocytosis Microcytosis Macrocytosis Damián Cells Rouleaux PT with INR INR PTT (Actin FS) Anticoagulation Therapy Puncture Site Patient Temperature ABG pH ABG pCO2 ABG pO2 ABG HCO3 ABG O2 Sat (Measured) ABG O2 Content ABG Base Excess Jamin Test Patient On Oxygen O2 Delivery Device Oxygen Flow Rate Vent Mode Vent Rate Mechanical Rate PEEP Pressure Support Vent Sodium 137 Potassium 4.7 Chloride 100 Carbon Dioxide 26 Anion Gap 10 BUN 61.1 H Creatinine 2.9 H Est GFR (CKD-EPI)AfAm 18.25 Est GFR (CKD-EPI)NonAf 15.74 POC Glucometer 179 Random Glucose 228 H Lactic Acid Calcium 8.4 L Phosphorus 5.0 H Magnesium 2.7 H Total Bilirubin 0.9 AST 2187 H ALT 1768 H Alkaline Phosphatase 300 H Troponin I Cancelled 1.82 H* Total Protein 7.3 Albumin 2.1 L Ur Random Creatinine U Random Total Protein Ur Random Sodium Ur Random Urea Nitrogn Stool Occult Blood COVID-19 (BETHEL) 05/26/20 05/26/20 09:20 Unknown WBC RBC Hgb Hct MCV MCH MCHC RDW Plt Count MPV Absolute Neuts (auto) Neutrophils % Neutrophils % (Manual) Band Neutrophils % Lymphocytes % Lymphocytes % (Manual) Monocytes % Monocytes % (Manual) Eosinophils % Eosinophils % (Manual) Basophils % Basophils % (Manual) Myelocytes % (Man) Promyelocytes % (Man) Blast Cells % (Manual) Nucleated RBC % Metamyelocytes Hypochromia Platelet Estimate Platelet Comment Polychromasia Poikilocytosis Anisocytosis Microcytosis Macrocytosis Spencer Cells Rouleaux PT with INR INR PTT (Actin FS) Anticoagulation Therapy Puncture Site Patient Temperature ABG pH ABG pCO2 ABG pO2 ABG HCO3 ABG O2 Sat (Measured) ABG O2 Content ABG Base Excess Jamin Test Patient On Oxygen O2 Delivery Device Oxygen Flow Rate Vent Mode Vent Rate Mechanical Rate PEEP Pressure Support Vent Sodium Potassium Chloride Carbon Dioxide Anion Gap BUN Creatinine Est GFR (CKD-EPI)AfAm Est GFR (CKD-EPI)NonAf POC Glucometer Random Glucose Lactic Acid Calcium Phosphorus Magnesium Total Bilirubin AST ALT Alkaline Phosphatase Troponin I 1.68 H* Total Protein Albumin Ur Random Creatinine U Random Total Protein Ur Random Sodium Ur Random Urea Nitrogn Stool Occult Blood Negative COVID-19 (BETHEL) Active Medications Generic Name Dose Route Start Last Admin Trade Name Freq PRN Reason Stop Dose Admin Chlorhexidine Gluconate 1 applic 05/25/20 22:00 05/25/20 22:25 Hibiclens For Decolonization - TP 1 applic HS [facility] Administration Collagenase 1 applic 05/27/20 10:00 Santyl - TP DAILY [facility] Protocol Heparin Sodium (Porcine) 1,000 unit 05/26/20 12:09 Heparin - IVPUSH PRN PRN Heparin Heparin Sodium (Porcine) 5,000 unit 05/26/20 12:09 Heparin - IVPUSH PRN PRN Heparin Fentanyl 500 mcg in 100 mls @ 16.329 mls/hr 05/25/20 12:00 05/26/20 11:35 Sublimaze Ivpb IVPB 0.31 mcg/kg/hr TITR [facility] 5 mls/hr Administration 1 MCG/KG/HR Sodium Chloride 1,000 mls @ 125 mls/hr 05/25/20 16:54 05/25/20 17:15 Normal Saline - IV 125 mls/hr ASDIR [facility] Administration Meropenem 1 gm/ Dextrose 100 mls @ 0 mls/hr 05/26/20 09:45 05/26/20 10:28 IVPB 50 mls/hr Q12H [facility] Administration As Directed Heparin Sodium (Porcine) 25, 500 mls @ 20 mls/hr 05/26/20 12:15 000 unit/ Sodium Chloride IV TITR [facility] Protocol 1,000 UNIT/HR Insulin Aspart 1 vial 05/25/20 22:00 05/26/20 05:46 Novolog Vial Sliding Scale - SQ 2 units TID [facility] Administration Protocol Mupirocin 1 applic 05/25/20 22:00 05/26/20 10:10 Bactroban Ointment (For Decolonization) - NS 05/30/20 21:59 1 applic BID [facility] Administration Pantoprazole Sodium 40 mg 05/25/20 18:00 05/26/20 10:11 Protonix Iv IVPUSH 40 mg DAILY [facility] Administration ASSESSMENT/PLAN: Patient is a 70 year old female with past medical history of DM, Right DM foot ulcer, chronic osteomyelitis, Left BKA, CHF, CKD, OA, KARIS, HTN, HLD, Charcot's joints, presented to the ED in respiratory distress and was subsequently intubated. We were called for evaluation of elevated PT/INR. #Elevated PT/INR -likely 2/2 liver disease, with predominant effect on FVII, PTT normal -elevated LFTs 2187/1768/300 -CT AP revealed hepatomegaly with mild-mod ascites -Fibrinogen, retic ct, LDH #Leukocytosis -due to sepsis 2/2 PNA, bacteremia -continue IV abx as per primary team -monitor cbc #Normocytic anemia -likely due to anemia of chronic disease, ?KARIS -iron studies on 05/14 revealed low iron of 25, TSAT 11%, indicate iron deficiency -would hold off on IV iron in setting of acute infection -monitor H/H and transfuse prn to keep hgb >7 Dispo: We will continue to follow the patient. Thank you for this consultative opportunity. Visit type - Medication Review Med list reviewed for High Risk Meds patients 65 and older: Yes - Emergency Visit Emergency Visit: Yes ED Registration Date: 05/25/20 Care time: The patient presented to the Emergency Department on the above date and was hospitalized for further evaluation of their emergent condition. - New Patient This patient is new to me today: Yes Date on this admission: 05/26/20 - Critical Care Critical Care patient: Yes Total Critical Care Time (in minutes): 35 Critical Care Statement: The care of this patient involved high complexity decision making to prevent further life threatening deterioration of the patient's condition and/or to evaluate & treat vital organ system(s) failure or risk of failure. ATTENDING PHYSICIAN STATEMENT I saw and evaluated the patient. I reviewed the resident's note and discussed the case with the resident. I agree with the resident's findings and plan as documented. SUBJECTIVE: OBJECTIVE: ASSESSMENT AND PLAN:
[2020-05-26] MEDS: HEPARIN - 25,000 UNIT in SODIUM CHLORIDE 495 ML IV SCH (14:06)
--- NOTE | 2020-05-26 14:30 | PN ---
Teaching Attending Note Name of Resident: Rubens Yanez ATTENDING PHYSICIAN STATEMENT I saw and evaluated the patient. I reviewed the resident's note and discussed the case with the resident. I agree with the resident's findings and plan as documented. SUBJECTIVE: Patient seen and examined in the ICU. Remains intubated and sedated. Pressors were not required overnight. Vital Signs - 24 hr 05/25/20 05/25/20 05/25/20 09:17 09:18 09:20 Temperature 102.1 F H 102.1 F H Pulse Rate 121 H Pulse Rate [ 79 Apical] Respiratory 22 H 30 H Rate Blood Pressure 85/59 L Blood Pressure 78/53 L [Left Arm] O2 Sat by Pulse 74 L 98 Oximetry (%) 05/25/20 05/25/20 05/25/20 09:33 09:45 10:00 Temperature Pulse Rate Pulse Rate [ 80 79 80 Apical] Respiratory 28 H 28 H 29 H Rate Blood Pressure Blood Pressure 91/59 L 93/61 93/61 [Left Arm] O2 Sat by Pulse 100 100 100 Oximetry (%) 05/25/20 05/25/20 05/25/20 10:15 10:30 10:31 Temperature Pulse Rate Pulse Rate [ 80 80 Apical] Respiratory 34 H 38 H Rate Blood Pressure Blood Pressure 98/62 99/65 [Left Arm] O2 Sat by Pulse 100 100 100 Oximetry (%) 05/25/20 05/25/20 05/25/20 10:33 10:45 11:28 Temperature Pulse Rate 77 Pulse Rate [ 79 80 Apical] Respiratory 34 H 18 Rate Blood Pressure Blood Pressure 96/65 100/67 [Left Arm] O2 Sat by Pulse 100 100 100 Oximetry (%) 05/25/20 05/25/20 05/25/20 11:45 12:00 12:02 Temperature Pulse Rate Pulse Rate [ 78 81 Apical] Respiratory 21 H 14 21 H Rate Blood Pressure Blood Pressure 101/72 105/68 [Left Arm] O2 Sat by Pulse 100 100 Oximetry (%) 05/25/20 05/25/20 05/25/20 12:15 12:30 12:33 Temperature Pulse Rate 84 Pulse Rate [ 84 83 Apical] Respiratory 16 16 15 Rate Blood Pressure Blood Pressure 109/83 117/81 [Left Arm] O2 Sat by Pulse 100 100 100 Oximetry (%) 05/25/20 05/25/2020 13:00 13:15 13:30 Temperature 98.5 F 98.1 F Pulse Rate Pulse Rate [ 82 80 83 Apical] Respiratory 16 16 16 Rate Blood Pressure Blood Pressure 105/73 120/73 117/74 [Left Arm] O2 Sat by Pulse 100 100 100 Oximetry (%) 05/25/20 13:45 Temperature 98.2 F Pulse Rate Pulse Rate [ 81 Apical] Respiratory 14 Rate Blood Pressure Blood Pressure 103/66 [Left Arm] O2 Sat by Pulse 100 Oximetry (%) GENERAL: Intubated and sedated HEAD: Normal with no signs of trauma. EYES: sclera anicteric, conjunctiva clear. EARS, NOSE, THROAT: dry mucous membranes. NECK: Normal range of motion, supple without lymphadenopathy, JVD, or masses. LUNGS: Vented, bilateral coarse rhonchi Right > Left. No wheezes. HEART: Regular rate and rhythm, normal S1 and S2 without murmur, rub or gallop. ABDOMEN: Soft, nontender, not distended, normoactive bowel sounds, no guarding, no rebound, no masses. No hepatomegaly or splenomegaly. MUSCULOSKELETAL: Normal range of motion at all joints. No bony deformities or tenderness. No CVA tenderness. UPPER EXTREMITIES: 2+ pulses, warm, well-perfused. No cyanosis. No clubbing. Cap refill <2 seconds. No peripheral edema. LOWER EXTREMITIES: LLE BKA NEUROLOGICAL: Sedated, non-focal PSYCHIATRIC: Sedated SKIN: Warm, dry, normal turgor, no rashes or lesions noted. Laboratory Results - last 24 hr 05/25/20 05/25/20 05/25/20 09:28 09:40 09:40 WBC 24.6 H RBC 3.95 Hgb 10.6 L Hct 33.9 MCV 85.9 MCH 26.8 MCHC 31.2 L RDW 19.3 H Plt Count 251 MPV 9.3 Absolute Neuts (auto) 22.0 H Neutrophils % 89.5 H Neutrophils % (Manual) 91.0 H Band Neutrophils % 0.0 Lymphocytes % 4.3 L D Lymphocytes % (Manual) 5.0 L D Monocytes % 5.9 Monocytes % (Manual) 2 L Eosinophils % 0.0 D Eosinophils % (Manual) 0.0 Basophils % 0.3 Basophils % (Manual) 0.0 Myelocytes % (Man) 1 D Promyelocytes % (Man) 0 Blast Cells % (Manual) 0 Nucleated RBC % 0 Metamyelocytes 1 D Hypochromia 1+ Platelet Estimate Normal Platelet Comment Rare giant plts Poikilocytosis 1+ [place]ami[place] Cells 1+ Rouleaux 2+ PT with INR 23.00 H INR 1.94 H PTT (Actin FS) 43.3 H VBG pH POC VBG pCO2 POC VBG pO2 VBG HCO3 VBG O2 Sat (Alfredo) VBG Base Excess Sodium Potassium Chloride Carbon Dioxide Anion Gap BUN Creatinine Est GFR (CKD-EPI)AfAm Est GFR (CKD-EPI)NonAf POC Glucometer 121 Random Glucose Lactic Acid Calcium Ferritin Total Bilirubin AST ALT Alkaline Phosphatase LD Total Creatine Kinase Creatine Kinase Index CK-MB (CK-2) Troponin I C-Reactive Protein B-Natriuretic Peptide Total Protein Albumin Urine Color Urine Appearance Urine pH Ur Specific [place] Urine Protein Urine Glucose (UA) Urine Ketones Urine Blood Urine Nitrite Urine Bilirubin Urine Urobilinogen Ur Leukocyte Esterase Urine WBC (Auto) Urine RBC (Auto) Urine Casts (Auto) U Epithel Cells (Auto) Urine Bacteria (Auto) Urine Yeast (Auto) 05/25/20 05/25/20 05/25/20 09:40 09:40 09:40 WBC RBC Hgb Hct MCV MCH MCHC RDW Plt Count MPV Absolute Neuts (auto) Neutrophils % Neutrophils % (Manual) Band Neutrophils % Lymphocytes % Lymphocytes % (Manual) Monocytes % Monocytes % (Manual) Eosinophils % Eosinophils % (Manual) Basophils % Basophils % (Manual) Myelocytes % (Man) Promyelocytes % (Man) Blast Cells % (Manual) Nucleated RBC % Metamyelocytes Hypochromia Platelet Estimate Platelet Comment Poikilocytosis [place] Cells Rouleaux PT with INR INR PTT (Actin FS) VBG pH POC VBG pCO2 POC VBG pO2 VBG HCO3 VBG O2 Sat (Alfredo) VBG Base Excess Sodium 135 L Potassium 6.3 H* Chloride 97 L Carbon Dioxide 19 L Anion Gap 19 H BUN 53.2 H Creatinine 2.8 H Est GFR (CKD-EPI)AfAm 19.04 Est GFR (CKD-EPI)NonAf 16.43 POC Glucometer Random Glucose 119 H Lactic Acid 10.4 H* Calcium 9.2 Ferritin QNS Total Bilirubin 1.2 H AST 1416 H ALT 906 H Alkaline Phosphatase 328 H LD Total > 1000 H Creatine Kinase 169 Creatine Kinase Index 0.5 CK-MB (CK-2) 1.0 Troponin I 0.35 H C-Reactive Protein 9.5 H B-Natriuretic Peptide 56568.5 H Total Protein 8.1 Albumin 2.2 L Urine Color Yellow Urine Appearance Clear Urine pH 5.5 Ur Specific [place] 1.016 Urine Protein 2+ H Urine Glucose (UA) 2+ H Urine Ketones Negative Urine Blood 2+ H Urine Nitrite Negative Urine Bilirubin Negative Urine Urobilinogen 0.2 Ur Leukocyte Esterase 2+ H Urine WBC (Auto) 413 Urine RBC (Auto) 11 Urine Casts (Auto) 0 U Epithel Cells (Auto) 2 Urine Bacteria (Auto) 377 Urine Yeast (Auto) Positive 05/25/20 05/25/20 09:40 14:35 WBC RBC Hgb Hct MCV MCH MCHC RDW Plt Count MPV Absolute Neuts (auto) Neutrophils % Neutrophils % (Manual) Band Neutrophils % Lymphocytes % Lymphocytes % (Manual) Monocytes % Monocytes % (Manual) Eosinophils % Eosinophils % (Manual) Basophils % Basophils % (Manual) Myelocytes % (Man) Promyelocytes % (Man) Blast Cells % (Manual) Nucleated RBC % Metamyelocytes Hypochromia Platelet Estimate Platelet Comment Poikilocytosis [place] Cells Rouleaux PT with INR INR PTT (Actin FS) VBG pH 7.292 L POC VBG pCO2 43.8 POC VBG pO2 39.7 VBG HCO3 20.7 L VBG O2 Sat (Alfredo) 68.7 L VBG Base Excess -5.7 L Sodium 139 Potassium 4.4 Chloride 104 Carbon Dioxide 26 Anion Gap 10 BUN 51.6 H Creatinine 2.9 H Est GFR (CKD-EPI)AfAm 18.25 Est GFR (CKD-EPI)NonAf 15.74 POC Glucometer Random Glucose 185 H Lactic Acid Calcium 8.4 L Ferritin Total Bilirubin 0.9 AST 4355 H ALT 1951 H Alkaline Phosphatase 295 H LD Total Creatine Kinase Creatine Kinase Index CK-MB (CK-2) Troponin I 0.81 H* C-Reactive Protein B-Natriuretic Peptide Total Protein 6.7 Albumin 2.0 L Urine Color Urine Appearance Urine pH Ur Specific [place] Urine Protein Urine Glucose (UA) Urine Ketones Urine Blood Urine Nitrite Urine Bilirubin Urine Urobilinogen Ur Leukocyte Esterase Urine WBC (Auto) Urine RBC (Auto) Urine Casts (Auto) U Epithel Cells (Auto) Urine Bacteria (Auto) Urine Yeast (Auto) ASSESSMENT/PLAN: Acute Respiratory Failure due to Multi-lobar PNA R/O Aspiration Uncontrolled DM Right diabetic foot ulcer Chronic osteomyelitis of right foot Diabetic neuropathy Left BKA OA Iron deficiency anemia HLD HTN Charcot's joint AC Mode of vent Follow cultures Broad ABX coverage per ID Strict I & O IVF Pressors for MAP < 65 VTE prophylaxis Glycemic control Requires ICU monitoring Dr Reyes Critical care time spent in reviewing chart, evaluating patient and formulating plan - 36 minutes
--- NOTE | 2020-05-26 14:46 | ECHO ---
Name: CLOTILDE REEDER Exam:Adult Echocardiogram Study Date: 05/26/2020 12:16 PM Age: 70 yrs Reason For Study: R/O LV Dysfunction Height: 65 in Weight: 180 lb BSA: 1.9 m2 MMode/2D Measurements & Calculations IVSd: 1.9 cm Ao root diam: 3.0 cm LVIDd: 3.7 cm LA dimension: 4.0 cm LVIDs: 2.6 cm ACS: 2.0 cm LVPWd: 0.92 cm LVPWs: 0.71 cm EDV(Teich): 59.4 ml ESV(Teich): 24.6 ml LVOT diam: 2.0 cm LAV (MOD-bp): 47.0 ml TAPSE: 1.4 cm RV S Julien: 9.4 cm/sec Doppler Measurements & Calculations MV V2 max: 113.4 cm/sec MV E max julien: 78.5 cm/sec MV max P.1 mmHg MV A max julien: 80.5 cm/sec MV V2 mean: 79.7 cm/sec MV E/A: 0.98 MV mean P.7 mmHg MV dec time: 0.17 sec MV V2 VTI: 24.7 cm Ao V2 max: 140.0 cm/sec LV V1 max P.4 mmHg Ao max P.8 mmHg LV V1 max: 92.8 cm/sec GREGG(V,D): 2.0 cm2 MR max julien: 20.5 cm/sec TR max julien: 281.1 cm/sec MR max P.17 mmHg TR max P.6 mmHg PA V2 max: 98.9 cm/sec Med Peak E' Julien: 6.1 cm/sec PA max P.9 mmHg Med E/e': 12.8 Lat Peak E' Julien: 9.5 cm/sec Lat E/e': 8.3 Procedure A complete two-dimensional transthoracic echocardiogram was performed (2D, M-mode, Doppler and color flow Doppler). Left Ventricle There is moderate concentric left ventricular hypertrophy. The echo findings are consistent with infi ltrative cardiomyopathy. Left ventricular systolic function is low normal. Ejection Fraction = 50%. Diastolic dysfunction, Grade III (restrictive pattern), consistent with markedly increased left atrial pressure . The left ventricular wall motion is normal. Right Ventricle The right ventricle is normal in size and function. Atria Normal left and right atrial size and function. Mitral Valve There is mild mitral valve thickening. There is trace mitral regurgitation. Tricuspid Valve The tricuspid valve is normal in structure and function. There is moderate tricuspid regurgitation. R ight ventricular systolic pressure is elevated at 40 mmhg. Assuming the RA pressure is 10 mmHg. Aortic Valve There is mild to moderate aortic valve thickening. Pulmonic Valve The pulmonic valve is normal in structure and function. Mild pulmonic valvular regurgitation. Great Vessels The aortic root is normal size. Pericardium/Pleura There is no pericardial effusion. There is no pleural effusion. Interpretation Summary There is moderate concentric left ventricular hypertrophy. The echo findings are consistent with infiltrative cardiomyopathy. Left ventricular systolic function is low normal. Ejection Fraction = 50%. There is trace mitral regurgitation. There is moderate tricuspid regurgitation. There is mild to moderate aortic valve thickening. Mild pulmonic valvular regurgitation. MD Anders Forbes 05/26/2020 02:46 PM
--- NOTE | 2020-05-26 15:12 | PN ---
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, Physician Chief Complaint: Sepsis History of Present Illness: Seen and examined at the bedside on Vent via ET tube on 60% FiO2 making urine via germain no fever or chills does not require presser family at the bedside - Current Medication List Current Medications: Active Medications Chlorhexidine Gluconate (Hibiclens For Decolonization -) 1 applic TP HS SERAFIN Last Admin: 05/25/20 22:25 Dose: 1 applic Documented by: Collagenase (Santyl -) 1 applic TP DAILY SERAFIN; Protocol Heparin Sodium (Porcine) (Heparin -) 1,000 unit IVPUSH PRN PRN PRN Reason: Heparin Heparin Sodium (Porcine) (Heparin -) 5,000 unit IVPUSH PRN PRN PRN Reason: Heparin Fentanyl (Sublimaze Ivpb) 500 mcg in 100 mls @ 16.329 mls/hr IVPB TITR SERAFIN Last Admin: 05/26/20 11:35 Dose: 0.31 mcg/kg/hr, 5 mls/hr Documented by: Sodium Chloride (Normal Saline -) 1,000 mls @ 125 mls/hr IV ASDIR SERAFIN Last Admin: 05/25/20 17:15 Dose: 125 mls/hr Documented by: Meropenem 1 gm/ Dextrose 100 mls @ 0 mls/hr IVPB Q12H SERAFIN Last Admin: 05/26/20 10:28 Dose: 50 mls/hr Documented by: Heparin Sodium (Porcine) 25, (000 unit/ Sodium Chloride) 500 mls @ 20 mls/hr IV TITR SERAFIN; Protocol Last Admin: 05/26/20 14:06 Dose: 1,000 unit/hr, 20 mls/hr Documented by: Insulin Aspart (Novolog Vial Sliding Scale -) 1 vial SQ TID SERAFIN; Protocol Last Admin: 05/26/20 13:30 Dose: 4 units Documented by: Mupirocin (Bactroban Ointment (For Decolonization) -) 1 applic NS BID SERAFIN Stop: 05/30/20 21:59 Last Admin: 05/26/20 10:10 Dose: 1 applic Documented by: Pantoprazole Sodium (Protonix Iv) 40 mg IVPUSH DAILY SERAFIN Last Admin: 05/26/20 10:11 Dose: 40 mg Documented by: - Objective Vital Signs: Vital Signs Temperature 98.7 F 05/26/20 14:00 Pulse Rate 84 05/26/20 14:00 Respiratory Rate 15 05/26/20 14:00 Blood Pressure 134/77 05/26/20 14:00 O2 Sat by Pulse Oximetry (%) 100 05/26/20 14:00 Constitutional: Yes: No Distress, Calm Neck: Yes: Supple Cardiovascular: Yes: Regular Rate and Rhythm Gastrointestinal: Yes: Normal Bowel Sounds, Soft Extremities: No: Cyanosis Edema: No Neurological: Yes: Other (sedated) Labs: CBC, BMP 05/26/20 05:16 05/26/20 05:16 INR, PTT INR 2.09 (0.83-1.09) H 05/26/20 05:16 Fibrinogen 298.0 mg/dL (238-498) 05/26/20 05:16 Assessment/Plan 70 year old woman with history of systolic heart failure, CKD with baseline Cr of 1.4, DM, Chronic osteomylitis who presented form the NH with respiratory distress and found to have respiratory failure requiring intubation with acute kidney injury. 1. Acute respiratory failure secondary to suspected pneumonia 2. Sepsis from UTI vs. PNA 3. Lactic acidosis in setting of sepsis 4. Acute on chronic renal insufficiency secondary to sepsis/renal hypoprofusion 5. Hx of CHF/Pleural effusions 6. Elevated troponins 7. Hyperkalemia Renal function stable, eGFR remains low however. There is no overt electrolyte or acid/base disturbances noted. No acute indication for dialysis continue IVFs to maintain MAP > 65 Can decrease IVF rate to 100cc per hour as long as BP stable. Lactic acidosis improved. f/u final cultures empiric antibiotics as per ICU/ID. Trend renal function and electrolytes daily. Thank you Will follow Joaquín Berry DO
[2020-05-26] MEDS: SODIUM CHLORIDE 1,000 ML IV SCH (16:58)
[2020-05-26] MEDS: HEPARIN NA (PORCINE) 5,000 UNITS/ML 1ML VIAL IVPUSH PRN (22:22)
[2020-05-26] MEDS: CHLORHEXIDINE GLUCONATE 4% CLEANSER FOR DECOLONIZATION TP SCH (22:23)
[2020-05-26] MEDS: MEROPENEM 1 GM in DEXTROSE 5%-WATER 100 ML IVPB SCH (22:40)
[2020-05-27] MEDS: INSULIN SLIDING SCALE (NOVOLOG) 1 VIAL SQ SCH ×3 (05:13→21:52)
[2020-05-27] MEDS: FENTANYL NS IVPB 500 MCG/100 ML BAG IVPB SCH (06:33)
[2020-05-27] MEDS: SODIUM CHLORIDE 1,000 ML IV SCH ×2 (06:33→14:01)
[2020-05-27 06:51] LABS: BASO % 0.5 % (0-2.0); EOS % 1.9 % (0-4.5); HEMATOCRIT 28.5 % (32.4-45.2); HEMOGLOBIN 9.1 GM/dL (10.7-15.3); LYMPH % 1.9 % (8-40); MCH 27.2 pg (25.7-33.7); MEAN CELL VOLUME 85.1 fl (80-96); MEAN PLT VOLUME 9.3 fl (7.5-11.1); MONO % 2.7 % (3.8-10.2); PLATELET COUNT 216 K/MM3 (134-434); RBC 3.35 M/mm3 (3.60-5.2); RDW 19.4 % (11.6-15.6); WHITE BLOOD COUNT 17.3 K/mm3 (4.0-10.0)
[2020-05-27 06:54] LABS: INR 1.58 (0.83-1.09); PROTHROMBIN TIME (PATIENT) 18.7 SEC (9.7-13.0)
[2020-05-27 07:07] LABS: IRON SERUM 18 ug/dL (50-175); TOTAL IRON BINDING CAPACITY 218 ug/dL (250-450)
[2020-05-27 07:12] LABS: ALBUMIN 1.8 g/dl (3.4-5.0); ANION GAP 8 MMOL/L (8-16); BILIRUBIN,TOTAL 0.8 mg/dL (0.2-1); BLOOD UREA NITROGEN 55.7 mg/dL (7-18); CALCIUM 8.1 mg/dL (8.5-10.1); CHLORIDE 105 mmol/L (98-107); CO2 28 mmol/L (21-32); CREATININE 2.4 mg/dL (0.55-1.3); GLUCOSE,RANDOM 151 mg/dL (74-106); LDH 412 U/L (84-246); MAGNESIUM 2.7 mg/dL (1.8-2.4); PHOSPHOROUS 3.6 mg/dL (2.5-4.9); SGOT/AST 641 U/L (15-37); SODIUM 141 mmol/L (136-145); TOT PROT 6.6 g/dl (6.4-8.2)
[2020-05-27 08:05] LABS: ALK PHOS 260 U/L (45-117); SGPT/ALT 996 U/L (13-61)
--- NOTE | 2020-05-27 08:18 | PN ---
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, Physician - Current Medication List Current Medications: Active Medications Chlorhexidine Gluconate (Hibiclens For Decolonization -) 1 applic TP HS SERAFIN Last Admin: 05/26/20 22:23 Dose: 1 applic Documented by: Collagenase (Santyl -) 1 applic TP DAILY SERAFIN; Protocol Heparin Sodium (Porcine) (Heparin -) 1,000 unit IVPUSH PRN PRN PRN Reason: Heparin Heparin Sodium (Porcine) (Heparin -) 5,000 unit IVPUSH PRN PRN PRN Reason: Heparin Last Admin: 05/26/20 22:22 Dose: 5,000 unit Documented by: Fentanyl (Sublimaze Ivpb) 500 mcg in 100 mls @ 16.329 mls/hr IVPB TITR SERAFIN Last Admin: 05/27/20 06:33 Dose: 0.31 mcg/kg/hr, 5 mls/hr Documented by: Heparin Sodium (Porcine) 25, (000 unit/ Sodium Chloride) 500 mls @ 20 mls/hr IV TITR SERAFIN; Protocol Last Titration: 05/27/20 06:37 Dose: 850 unit/hr, 17 mls/hr Documented by: Sodium Chloride (Normal Saline -) 1,000 mls @ 100 mls/hr IV ASDIR SERAFIN Last Admin: 05/27/20 06:33 Dose: 100 mls/hr Documented by: Meropenem 1 gm/ Dextrose 100 mls @ 200 mls/hr IVPB BID SERAFIN Last Admin: 05/26/20 22:40 Dose: 200 mls/hr Documented by: Insulin Aspart (Novolog Vial Sliding Scale -) 1 vial SQ TID SERAFIN; Protocol Last Admin: 05/27/20 05:13 Dose: 2 units Documented by: Mupirocin (Bactroban Ointment (For Decolonization) -) 1 applic NS BID SERAFIN Stop: 05/30/20 21:59 Last Admin: 05/26/20 22:23 Dose: 1 applic Documented by: Pantoprazole Sodium (Protonix Iv) 40 mg IVPUSH DAILY SERAFIN Last Admin: 05/26/20 10:11 Dose: 40 mg Documented by: - Objective Vital Signs: Vital Signs Temperature 97.5 F L 05/27/20 06:00 Pulse Rate 85 05/27/20 06:00 Respiratory Rate 9 L 05/27/20 06:00 Blood Pressure 123/72 05/27/20 06:00 O2 Sat by Pulse Oximetry (%) 100 05/27/20 06:00 Cardiovascular: Yes: S1, S2 Respiratory: Yes: Mechanically Ventilated Gastrointestinal: Yes: Normal Bowel Sounds, Soft Extremities: Yes: Amputation (bka) Labs: CBC, BMP 05/27/20 05:30 05/27/20 05:30 INR, PTT INR 1.58 (0.83-1.09) H 05/27/20 05:30 Fibrinogen 298.0 mg/dL (238-498) 05/26/20 05:16 Assessment/Plan - Problems (1) Sepsis Assessment/Plan: -ID consult -IV abx -Febrile upon admission -Cultures pending Microbiology 05/25/20 18:30 Sputum - Endotrachea Suction/Ventilator Gram Stain - Final 05/25/20 09:40 Urine - Urine - Catheterized Urine Culture - Final NO GROWTH OBTAINED 05/25/20 09:40 Blood - Peripheral Venous Blood Culture - Preliminary Pending Organism 05/25/20 09:35 Blood - Peripheral Venous Blood Culture - Preliminary Pending Organism -LA elevated -IVF Problems reviewed: Yes Code(s): A41.9 - SEPSIS, UNSPECIFIED ORGANISM (2) Acute on chronic renal failure Assessment/Plan: -Nephrology consult -2/2 to acute infection Problems reviewed: Yes Code(s): N17.9 - ACUTE KIDNEY FAILURE, UNSPECIFIED; N18.9 - CHRONIC KIDNEY DISEASE, UNSPECIFIED Qualifiers: Acute renal failure type: unspecified Chronic kidney disease stage: un specified stage Qualified Code(s): N17.9 - Acute kidney failure, unspecified; N18.9 - Chronic kidney disease, unspecified (3) Amyloid disease Problems reviewed: Yes Code(s): E85.9 - AMYLOIDOSIS, UNSPECIFIED (4) Anemia Assessment/Plan: -KARIS in the past -Feosol BID -Monitor H/H Problems reviewed: Yes Code(s): D64.9 - ANEMIA, UNSPECIFIED (5) Pleural effusion Problems reviewed: Yes Code(s): J90 - PLEURAL EFFUSION, NOT ELSEWHERE CLASSIFIED (6) Right lower lobe pneumonia Assessment/Plan: -as above -Mech vent -Pulmonary consult -ICU monitoring -Cardiology consult -Lynn cath Problems reviewed: Yes Code(s): J18.9 - PNEUMONIA, UNSPECIFIED ORGANISM Qualifiers: Pneumonia type: due to unspecified organism Qualified Code(s): J18.9 - Pneumonia, unspecified organism (7) Troponin I above reference range Assessment/Plan: -2/2 to sepsis and demand ischemia -ICU monitoring -Cardiology consult Problems reviewed: Yes Code(s): R79.89 - OTHER SPECIFIED ABNORMAL FINDINGS OF BLOOD CHEMISTRY
--- NOTE | 2020-05-27 08:27 | PN ---
Physical Exam: SUBJECTIVE: Patient seen and examined, sedated and intubated. Weaning down FIO2 and Fentanyl. Will start weaning trials tomorrow OBJECTIVE: Vital Signs Period Temp Pulse Resp BP Sys/Dobson Pulse Ox Last 24 Hr 97.5 F-98.7 F 76-87 9-16 98-141/61-81 99-100 GENERAL: Intubated & Sedated HEAD: Normal with no signs of trauma. EYES: Not assessed NECK: Supple, w/o lymphadenopathy LUNGS: On ventilator. Breath sounds coarse throughout HEART: Regular rate and rhythm, normal S1 and S2 without murmur, rub or gallop. ABDOMEN: Very distended. Fluid wave appreciated UPPER EXTREMITIES: 2+ pulses, warm, well-perfused. No cyanosis. No clubbing. LOWER EXTREMITIES: Left BKA, R foot ulcer lateral aspect. NEUROLOGICAL: Not assessed PSYCHIATRIC: Not assessed Laboratory Results - last 24 hr Troponin, BNP 05/26/20 05/26/20 05:16 09:20 Troponin I 1.82 H* 1.68 H* CBC, BMP 05/27/20 05:30 05/27/20 05:30 INR, PTT INR 1.58 (0.83-1.09) H 05/27/20 05:30 Fibrinogen 298.0 mg/dL (238-498) 05/26/20 05:16 Active Medications Chlorhexidine Gluconate (Hibiclens For Decolonization -) 1 applic TP HS [facility]AFIN Last Admin: 05/26/20 22:23 Dose: 1 applic Documented by: Collagenase (Santyl -) 1 applic TP DAILY [facility]; Protocol Last Admin: 05/27/20 09:19 Dose: 1 applic Documented by: Heparin Sodium (Porcine) (Heparin -) 1,000 unit IVPUSH PRN PRN PRN Reason: Heparin Heparin Sodium (Porcine) (Heparin -) 5,000 unit IVPUSH PRN PRN PRN Reason: Heparin Last Admin: 05/27/20 12:16 Dose: 5,000 unit Documented by: Fentanyl (Sublimaze Ivpb) 500 mcg in 100 mls @ 16.329 mls/hr IVPB TITR SERAFIN Last Admin: 05/27/20 06:33 Dose: 0.31 mcg/kg/hr, 5 mls/hr Documented by: Heparin Sodium (Porcine) 25, (000 unit/ Sodium Chloride) 500 mls @ 20 mls/hr IV TITR [facility]AFIN; Protocol Last Admin: 05/27/20 12:16 Dose: 1,000 unit/hr, 20 mls/hr Documented by: Meropenem 1 gm/ Dextrose 100 mls @ 200 mls/hr IVPB BID SERAFIN Last Admin: 05/27/20 09:19 Dose: 200 mls/hr Documented by: Sodium Chloride (Normal Saline -) 1,000 mls @ 84 mls/hr IV ASDIR SERAFIN Last Admin: 05/27/20 14:01 Dose: 84 mls/hr Documented by: Insulin Aspart (Novolog Vial Sliding Scale -) 1 vial SQ TID [facility]; Protocol Last Admin: 05/27/20 14:02 Dose: Not Given Documented by: Mupirocin (Bactroban Ointment (For Decolonization) -) 1 applic NS BID [facility] Stop: 05/30/20 21:59 Last Admin: 05/27/20 09:19 Dose: 1 applic Documented by: Pantoprazole Sodium (Protonix Iv) 40 mg IVPUSH DAILY [facility] Last Admin: 05/27/20 09:19 Dose: 40 mg Documented by: ASSESSMENT/PLAN: 70 year old female with a significant PMHx of Uncontrolled DM, Diabetic foot ulcer on R. foot, Chronic osteomyelitis of right foot, Diabetic neuropathy, Left leg below knee amputation, OA, Iron deficiency anemia, HLD, HTN, Charcot's manjinder int, ESBL resistance and CHF who presents to the ED from [facility] for evaluation of hypoxia and AMS. The patient was previously discharged on 05/23 after having been treated for G(-) Bacteremia. GENERAL/NEURO -VSS -Sedated & Intubated -Weaning Fio2 @ 50 -Fentanyl weaned to 20 (05/27) -Central line in place (05/25) -Monitor Neuro signs -Will attempt trials of weaning CARDIAC -History of CHF -ECHO (05/12): EF: 40% Moderate concentric LV hypertrophy, systolic function moderately reduced. Suggestive of infiltrative amyloid cardiomyopathy. Diastolic dysunction (grade 3, restrictive pattern), consistent w/ increased atrial pressure. Mild tricuspid regurg w/ pulmonary htn. -CT Chest: The heart is slightly enlarged. No gross pericardial effusion is identified -Elevated K+: EKG shows no abnormalities --> Repeat EKG shows lengthening QT -Troponemia: 0.35 (05/25), will trend. Likely due to sepsis --> 1.84 (05/26) -Monitor MAP >65, -Add Levophed as needed PULM -Septic Shock 2/2 likely to pneumonia. Can not rule out UTI -Sedated & Intubated -Fentanyl @ 25 Drip -Vent: 450/14/60/5 -Sputum Cultures, Legionella Cultures sent -CT Chest: Atelectatic changes in the left lung. Moderate elevation of the right hemidiaphragm with consolidation/atelectasis in the right lower lobe and to a lesser extent in the right middle lobe as well as a [id number] right pleural effusion suggestive of pneumonia. -Monitor O2 Sats ENDOCRINE -Hx of Diabetes -ISS TID per protocol -Monitor BG q6 GASTRO -Abdominal Ascites 2/2 to TONIA and chronic CHF -Hepatomegally noted on CT -LFTs elevated, will trend --> Decreasing (05/26) -Heme Consult: likely 2/2 liver disease, with predominant effect on FVII, PTT normal -Fluid Resucitation: NS @ 83 per renal -FOBT Negative RENAL -Pre-renal TONIA likely 2/2 sepsis and hypoperfusion -UA shows 2+ Blood -Lynn in Place: Monitor I/Os -Monitor creatinine --> Trending down (05/27) -Monitor Potassium: Normalized (05/27) -Monitor Lactic Acid: FU repeat ABG -Dr. Berry Nephrology Consulted: 2/2 TONIA in the setting of chronic CHF w/ Ascites INFECTIOUS -Septic Shock likely 2/2 Pneumonia, can not rule out UTI (see UA) -Blood, Urine, Sputum, Legionella Cultures sent -Blood Cx: Lactose Fermenting GNB, awaiting organism (05/26) -Urinalysis: +2 LE, +2 Blood -Covid negative -Zosyn DC -Vanc DC -ID Consulted: Meropenem ordered -Wound Care consulted 2/2 R foot ulcer: No need for surgical intervention (05/26) SOCIAL WORK -(05/27): -Social work consult placed -On License Of [facility] updated on ptn -Ptns pre admission status was lucid and mobile w/ wheel chair prior to admission. Sick 3 times in the past year while at [facility], unable to leave since Covid. Prior to that lived alone at home by herself, able to complete ADL PPx -Patoprazol -Heparin Drip, monitor PTT FEN Fluid: NS @ 83 Electrolytes: Monitor K+, FU BMP Nutrition: Tube Feeds per Patient Support Partner Lines: -Central Line (05/25) -Lynn Catheter (05/25) -ET Tube (05/25) Visit type - Emergency Visit Emergency Visit: No - New Patient This patient is new to me today: No - Critical Care Critical Care patient: Yes Total Critical Care Time (in minutes): 36 Critical Care Statement: The care of this patient involved high complexity decision making to prevent further life threatening deterioration of the pat ient's condition and/or to evaluate & treat vital organ system(s) failure or risk of failure. - Discharge Referral Referred to [facility] No - Medication Review Med list reviewed for High Risk Meds patients 65 and older: Yes ATTENDING PHYSICIAN STATEMENT I saw and evaluated the patient. I reviewed the resident's note and discussed the case with the resident. I agree with the resident's findings and plan as documented. SUBJECTIVE: OBJECTIVE: ASSESSMENT AND PLAN:
[2020-05-27] MEDS ORDERED: DEXTROSE 5%-WATER 100 ML IVPB ONE ×2 (09:14→21:21)
[2020-05-27] MEDS ORDERED: MEROPENEM 1 GM VIAL (RESTRICTED TO ID) IVPB ONE ×2 (09:14→21:21)
[2020-05-27] MEDS: MUPIROCIN 2% TOPICAL OINTMENT FOR DECOLONIZATION NS SCH ×2 (09:19→21:53)
[2020-05-27] MEDS: PANTOPRAZOLE SODIUM 40 MG VIAL IVPUSH SCH (09:19)
[2020-05-27] MEDS: MEROPENEM 1 GM in DEXTROSE 5%-WATER 100 ML IVPB SCH ×2 (09:19→21:53)
[2020-05-27] MEDS: COLLAGENASE CLOSTRIDIUM HIST. 30 GRAMS TUBE TP SCH (09:19)
[2020-05-27 09:35] LABS: ANISOCYTOSIS 1+; MACROCYTOSIS 0; PLATELET ESTIMATE NORMAL
[2020-05-27] MEDS: HEPARIN NA (PORCINE) 5,000 UNITS/ML 1ML VIAL IVPUSH PRN ×2 (12:16→19:06)
[2020-05-27] MEDS: HEPARIN - 25,000 UNIT in SODIUM CHLORIDE 495 ML IV SCH (12:16)
--- NOTE | 2020-05-27 13:20 | PN ---
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, Physician Chief Complaint: Sepsis History of Present Illness: Seen and examined at the bedside on Vent via ET tube on 50% FiO2 making urine via germain no fever or chills on IVF no pressers - Current Medication List Current Medications: Active Medications Chlorhexidine Gluconate (Hibiclens For Decolonization -) 1 applic TP HS [facility] Last Admin: 05/26/20 22:23 Dose: 1 applic Documented by: Collagenase (Santyl -) 1 applic TP DAILY [facility]; Protocol Last Admin: 05/27/20 09:19 Dose: 1 applic Documented by: Heparin Sodium (Porcine) (Heparin -) 1,000 unit IVPUSH PRN PRN PRN Reason: Heparin Heparin Sodium (Porcine) (Heparin -) 5,000 unit IVPUSH PRN PRN PRN Reason: Heparin Last Admin: 05/27/20 12:16 Dose: 5,000 unit Documented by: Fentanyl (Sublimaze Ivpb) 500 mcg in 100 mls @ 16.329 mls/hr IVPB TITR [facility] Last Admin: 05/27/20 06:33 Dose: 0.31 mcg/kg/hr, 5 mls/hr Documented by: Heparin Sodium (Porcine) 25, (000 unit/ Sodium Chloride) 500 mls @ 20 mls/hr IV TITR SERAFIN; Protocol Last Admin: 05/27/20 12:16 Dose: 1,000 unit/hr, 20 mls/hr Documented by: Sodium Chloride (Normal Saline -) 1,000 mls @ 100 mls/hr IV ASDIR SERAFIN Last Admin: 05/27/20 06:33 Dose: 100 mls/hr Documented by: Meropenem 1 gm/ Dextrose 100 mls @ 200 mls/hr IVPB BID [facility] Last Admin: 05/27/20 09:19 Dose: 200 mls/hr Documented by: Insulin Aspart (Novolog Vial Sliding Scale -) 1 vial SQ TID [facility]; Protocol Last Admin: 05/27/20 05:13 Dose: 2 units Documented by: Mupirocin (Bactroban Ointment (For Decolonization) -) 1 applic NS BID [facility] Stop: 05/30/20 21:59 Last Admin: 05/27/20 09:19 Dose: 1 applic Documented by: Pantoprazole Sodium (Protonix Iv) 40 mg IVPUSH DAILY [facility] Last Admin: 05/27/20 09:19 Dose: 40 mg Documented by: - Objective Vital Signs: Vital Signs Temperature 97 F L 05/27/20 13:12 Pulse Rate 88 05/27/20 13:12 Respiratory Rate 14 05/27/20 13:12 Blood Pressure 144/84 05/27/20 13:12 O2 Sat by Pulse Oximetry (%) 100 05/27/20 12:56 Constitutional: Yes: No Distress, Calm HENT: Yes: Atraumatic Neck: Yes: Supple Cardiovascular: Yes: Regular Rate and Rhythm Respiratory: Yes: Regular Gastrointestinal: Yes: Soft Genitourinary: Yes: Germain Present. No: Bladder Distention Extremities: No: Cyanosis Edema: No Labs: CBC, BMP 05/27/20 05:30 05/27/20 05:30 INR, PTT INR 1.58 (0.83-1.09) H 05/27/20 05:30 Fibrinogen 298.0 mg/dL (238-498) 05/26/20 05:16 Assessment/Plan 70 year old woman with history of systolic heart failure, CKD with baseline Cr of 1.4, DM, Chronic osteomylitis who presented form the NH with respiratory distress and found to have respiratory failure requiring intubation with acute kidney injury. 1. Acute respiratory failure secondary to suspected pneumonia 2. Sepsis from UTI vs. PNA 3. Lactic acidosis in setting of sepsis 4. Acute on chronic renal insufficiency secondary to sepsis/renal hypoprofusion 5. Hx of CHF/Pleural effusions 6. Elevated troponins 7. Hyperkalemia Renal function improving, has good urine output There is no overt electrolyte or acid/base disturbances noted. No acute indication for dialysis continue IVFs to maintain MAP > 65 Can decrease IVF rate to 84cc per hour as long as BP stable. f/u final cultures empiric antibiotics as per ICU/ID. Trend renal function and electrolytes daily. Thank you Will follow Joaquín Berry DO
--- NOTE | 2020-05-27 13:23 | CON.CARD ---
Consult Consult Specialty:: cardiology Reason for Consultation:: hypoxia; change in mental status; hx infiltrative heart disease - History of Present Illness Chief Complaint: Pt intubated, sedated History of Present Illness: Ms. Figueroa is a 70 year old black female (b. 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 foot, Chronic osteomyelitis of right foot, Diabetic neuropathy, Left leg below knee amputation, OA, Iron deficiency anemia, HLD, HTN, Charcot's joint, ESBL resistance, who presents to the ED BIBA from [facility] for evaluation of hypoxia and AMS; required intubation. Allergies: NKA Social history: No reported hx of tobacco use, alcohol use or illicit drug use. PCP: Romain Carvalho JR - History Source History Provided By: Patient, Medical Record Limitations to Obtaining History: Poor Historian - Past Medical History Cardio/Vascular: Yes: CHF, HTN, Hyperlipdemia Reproductive: Yes: Postmenopausal ...: No Endocrine: Yes: Diabetes Mellitus (DM II) - Alcohol/Substance Use Hx Alcohol Use: No History of Substance Use: reports: None - Smoking History Smoking history: Never smoked Have you smoked in the past 12 months: No - Social History ADL: Support Services History of Recent Travel: No ([place]) Home Medications - Allergies Allergies/Adverse Reactions: Allergies Allergy/AdvReac Type Severity Reaction Status Date / Time No Known Allergies Allergy Verified 05/25/20 10:04 - Home Medications Home Medications: Ambulatory Orders Aspirin 81 mg PO DAILY 05/11/20 Atorvastatin Ca [Lipitor] 80 mg PO HS 05/11/20 Gabapentin 100 mg PO QID 05/11/20 Gabapentin 300 mg PO HS 05/11/20 Losartan Potassium 25 mg PO DAILY 05/11/20 Sennosides [Senno] 17.2 mg PO HS 05/11/20 Torsemide [Demadex -] 80 mg PO DAILY@0600 tablet 05/21/20 Chlorhexidine Gluconate [Hibiclens For Decolonization -] 1 applic TP DAILY 05/25/20 Glucagon - 1 mg IJ PRN 05/25/20 Insulin Glargine,Hum.rec.anlog [Basaglar Michelleikpen U-100] 17 unit SQ HS 05/25/20 Insulin Lispro [Admelog Solostar] 7 unit SQ AC 05/25/20 Metoprolol Tartrate [Lopressor -] 50 mg PO DAILY 05/25/20 Polyethylene Glycol 3350 [Glycolax] 17 gm PO DAILY PRN 05/25/20 Family Medical History Family History: Unable to Obtain Review of Systems Unable to obtain ROS, reason: unresponsive - Risk Factors Known Risk Factors: Yes: Age, Hypercholesterolemia, Hypertension, Physical Inactivity, Race, Other (CHF: suspect amyloidosis) Vital Signs: Vital Signs Temperature 97 F L 05/27/20 13:12 Pulse Rate 88 05/27/20 13:12 Respiratory Rate 14 05/27/20 13:12 Blood Pressure 144/84 05/27/20 13:12 O2 Sat by Pulse Oximetry (%) 100 05/27/20 12:56 Constitutional: Yes: Other Eyes: Yes: WNL HENT: Yes: WNL Neck: Yes: Decreased ROM Respiratory: Yes: Diminished (right base), Mechanically Ventilated Gastrointestinal: Yes: Soft Renal/: No: Anuria Heart Sounds: Yes: S1, S2, S4 Murmur: Yes: Systolic Murmur, Grade 1 Musculoskeletal: Yes: Muscle Weakness Extremities: Yes: Cool, Other (Lt BKA; right LE chronic wound; OM) Edema: Yes Edema: RLE: 1+ Peripheral Pulses WNL: No Integumentary: Yes: Venous Stasis Changes, Other Neurological: Yes: Unresponsive, Weakness - Other Data Labs, Other Data: CBC, BMP 05/27/20 05:30 05/27/20 05:30 INR, PTT INR 1.58 (0.83-1.09) H 05/27/20 05:30 Fibrinogen 298.0 mg/dL (238-498) 05/26/20 05:16 Ejection Fraction %: LVEF > or = 40 % Assessment/Plan 70 yr old woman with PMHx low-normal systolic/ diastolic CHF, ?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 foot, Chronic osteomyelitis of right foot, Diabetic neuropathy, Left leg below knee amputation, OA, Iron deficiency anemia, HLD, HTN, renal dysfunction, Charcot's joint, ESBL resistance and CHF who presents to the ED from [facility] for evaluation of hypoxia and AMS requiring intubation. Suspected multilobar pnemonia and sepsis. Plan; ABX as per ID currently hemodynamicaly stable off pressors; maintain hydration. BUN/Cr, electrolytes, Daily weight, Is and Os. DVT plx continue cardiac meds, including metoprolol and losartan. Amyloidosis w/u at [facility] pending. CC time spent: 75 minutes.
--- NOTE | 2020-05-27 14:57 | EKG ---
Test Reason : Blood Pressure : / mmHG Vent. Rate : 077 BPM Atrial Rate : 077 BPM P-R Int : 136 ms QRS Dur : 068 ms QT Int : 434 ms P-R-T Axes : 064 069 084 degrees QTc Int : 491 ms NORMAL SINUS RHYTHM CANNOT RULE OUT ANTERIOR INFARCT , AGE UNDETERMINED ABNORMAL ECG WHEN COMPARED WITH ECG OF 26-MAY-2020 00:24, PREMATURE ATRIAL COMPLEXES ARE NO LONGER PRESENT NONSPECIFIC T WAVE ABNORMALITY NO LONGER EVIDENT IN INFERIOR LEADS NONSPECIFIC T WAVE ABNORMALITY, IMPROVED IN ANTEROLATERAL LEADS QT HAS LENGTHENED Confirmed by CAROLINE LMABERT MD ([id number]) on 05/27/2020 2:57:04 PM Referred By: Confirmed By:CAROLINE LAMBERT MD
--- NOTE | 2020-05-27 16:33 | PN ---
Teaching Attending Note Name of Resident: Rubens Yanez ATTENDING PHYSICIAN STATEMENT I saw and evaluated the patient. I reviewed the resident's note and discussed the case with the resident. I agree with the resident's findings and plan as documented. SUBJECTIVE: Patient seen and examined in the ICU. Remains intubated and sedated. No pressors. Intake & Output 05/24/20 05/25/20 05/26/20 05/27/20 23:59 23:59 23:59 23:59 Intake Total 4223 2567.6 1491.2 Output Total 329 105 9723 Balance 3383 1767.6 291.2 Weight 180 lb 177 lb 14.609 oz 181 lb Last Vital Signs Temp Pulse Resp BP Pulse Ox 97 F L 88 14 130/85 100 05/27/20 14:00 05/27/20 16:00 05/27/20 16:00 05/27/20 16:00 05/27/20 16:00 Active Medications Chlorhexidine Gluconate (Hibiclens For Decolonization -) 1 applic TP HS SERAFIN Last Admin: 05/26/20 22:23 Dose: 1 applic Documented by: Collagenase (Santyl -) 1 applic TP DAILY [facility]; Protocol Last Admin: 05/27/20 09:19 Dose: 1 applic Documented by: Heparin Sodium (Porcine) (Heparin -) 1,000 unit IVPUSH PRN PRN PRN Reason: Heparin Heparin Sodium (Porcine) (Heparin -) 5,000 unit IVPUSH PRN PRN PRN Reason: Heparin Last Admin: 05/27/20 12:16 Dose: 5,000 unit Documented by: Fentanyl (Sublimaze Ivpb) 500 mcg in 100 mls @ 16.329 mls/hr IVPB TITR SERAFIN Last Admin: 05/27/20 06:33 Dose: 0.31 mcg/kg/hr, 5 mls/hr Documented by: Heparin Sodium (Porcine) 25, (000 unit/ Sodium Chloride) 500 mls @ 20 mls/hr IV TITR SERAFIN; Protocol Last Admin: 05/27/20 12:16 Dose: 1,000 unit/hr, 20 mls/hr Documented by: Meropenem 1 gm/ Dextrose 100 mls @ 200 mls/hr IVPB BID [facility]AF[facility] Last Admin: 05/27/20 09:19 Dose: 200 mls/hr Documented by: Sodium Chloride (Normal Saline -) 1,000 mls @ 84 mls/hr IV ASDIR [facility] Last Admin: 05/27/20 14:01 Dose: 84 mls/hr Documented by: Insulin Aspart (Novolog Vial Sliding Scale -) 1 vial SQ TID [facility]; Protocol Last Admin: 05/27/20 14:02 Dose: Not Given Documented by: Mupirocin (Bactroban Ointment (For Decolonization) -) 1 applic NS BID [facility] Stop: 05/30/20 21:59 Last Admin: 05/27/20 09:19 Dose: 1 applic Documented by: Pantoprazole Sodium (Protonix Iv) 40 mg IVPUSH DAILY [facility] Last Admin: 05/27/20 09:19 Dose: 40 mg Documented by: GENERAL: Intubated and sedated HEAD: Normal with no signs of trauma. EYES: sclera anicteric, conjunctiva clear. EARS, NOSE, THROAT: dry mucous membranes. NECK: Normal range of motion, supple without lymphadenopathy, JVD, or masses. LUNGS: Vented, bilateral coarse rhonchi Right > Left. No wheezes. HEART: Regular rate and rhythm, normal S1 and S2 without murmur, rub or gallop. ABDOMEN: Soft, nontender, not distended, normoactive bowel sounds, no guarding, no rebound, no masses. No hepatomegaly or splenomegaly. MUSCULOSKELETAL: Normal range of motion at all joints. No bony deformities or tenderness. No CVA tenderness. UPPER EXTREMITIES: 2+ pulses, warm, well-perfused. No cyanosis. No clubbing. Cap refill <2 seconds. No peripheral edema. LOWER EXTREMITIES: LLE BKA NEUROLOGICAL: Sedated, non-focal PSYCHIATRIC: Sedated SKIN: Warm, dry, normal turgor, no rashes or lesions noted. Laboratory Results - last 24 hr 05/26/20 05/26/20 05/27/20 20:00 22:35 04:00 WBC RBC Hgb Hct MCV MCH MCHC RDW Plt Count MPV Absolute Neuts (auto) Neutrophils % Neutrophils % (Manual) Band Neutrophils % Lymphocytes % Lymphocytes % (Manual) Monocytes % Monocytes % (Manual) Eosinophils % Eosinophils % (Manual) Basophils % Basophils % (Manual) Myelocytes % (Man) Promyelocytes % (Man) Blast Cells % (Manual) Nucleated RBC % Metamyelocytes Hypochromia Platelet Estimate Polychromasia Poikilocytosis Anisocytosis Microcytosis Macrocytosis PT with INR INR PTT (Actin FS) 34.9 207.4 H Sodium Potassium Chloride Carbon Dioxide Anion Gap BUN Creatinine Est GFR (CKD-EPI)AfAm Est GFR (CKD-EPI)NonAf POC Glucometer 150 Random Glucose Calcium Phosphorus Magnesium Iron TIBC Iron Saturation Unsaturated IBC Ferritin Total Bilirubin AST ALT Alkaline Phosphatase LD Total Total Protein Albumin Vitamin B12 Serum Folate 05/27/20 05/27/20 05/27/20 05:09 05:30 05:30 WBC 17.3 H RBC 3.35 L Hgb 9.1 L Hct 28.5 L MCV 85.1 MCH 27.2 MCHC 32.0 RDW 19.4 H Plt Count 216 MPV 9.3 Absolute Neuts (auto) 16.1 H Neutrophils % 93.0 H Neutrophils % (Manual) 91.0 H Band Neutrophils % 0.0 Lymphocytes % 1.9 L Lymphocytes % (Manual) 2.0 L Monocytes % 2.7 L Monocytes % (Manual) 3 L D Eosinophils % 1.9 D Eosinophils % (Manual) 4.0 D Basophils % 0.5 Basophils % (Manual) 0.0 Myelocytes % (Man) 0 Promyelocytes % (Man) 0 Blast Cells % (Manual) 0 Nucleated RBC % 0 Metamyelocytes 0 Hypochromia 0 Platelet Estimate Normal Polychromasia 1+ Poikilocytosis 0 Anisocytosis 1+ Microcytosis 1+ Macrocytosis 0 PT with INR INR PTT (Actin FS) Sodium 141 Potassium 4.0 Chloride 105 Carbon Dioxide 28 Anion Gap 8 BUN 55.7 H Creatinine 2.4 H Est GFR (CKD-EPI)AfAm 22.94 Est GFR (CKD-EPI)NonAf 19.79 POC Glucometer 152 Random Glucose 151 H Calcium 8.1 L Phosphorus 3.6 Magnesium 2.7 H Iron 18 L TIBC 218 L Iron Saturation 8 L Unsaturated IBC 200 Ferritin 3422.3 H Total Bilirubin 0.8 AST 641 H ALT 996 H Alkaline Phosphatase 260 H LD Total 412 H Total Protein 6.6 Albumin 1.8 L Vitamin B12 > 6000 H Serum Folate 11 05/27/20 05/27/20 05/27/20 05:30 11:00 11:24 WBC RBC Hgb Hct MCV MCH MCHC RDW Plt Count MPV Absolute Neuts (auto) Neutrophils % Neutrophils % (Manual) Band Neutrophils % Lymphocytes % Lymphocytes % (Manual) Monocytes % Monocytes % (Manual) Eosinophils % Eosinophils % (Manual) Basophils % Basophils % (Manual) Myelocytes % (Man) Promyelocytes % (Man) Blast Cells % (Manual) Nucleated RBC % Metamyelocytes Hypochromia Platelet Estimate Polychromasia Poikilocytosis Anisocytosis Microcytosis Macrocytosis PT with INR 18.70 H INR 1.58 H PTT (Actin FS) 30.9 Sodium Potassium Chloride Carbon Dioxide Anion Gap BUN Creatinine Est GFR (CKD-EPI)AfAm Est GFR (CKD-EPI)NonAf POC Glucometer 144 Random Glucose Calcium Phosphorus Magnesium Iron TIBC Iron Saturation Unsaturated IBC Ferritin Total Bilirubin AST ALT Alkaline Phosphatase LD Total Total Protein Albumin Vitamin B12 Serum Folate ASSESSMENT/PLAN: Acute Respiratory Failure due to Multi-lobar PNA R/O Aspiration Uncontrolled DM Right diabetic foot ulcer Chronic osteomyelitis of right foot Diabetic neuropathy Left BKA OA Iron deficiency anemia HLD HTN Charcot's joint AC Mode of vent Follow cultures ABX coverage per ID Strict I & O IVF Sedation vacation VTE prophylaxis Glycemic control Requires ICU monitoring Dr Reyes Critical care time spent in reviewing chart, evaluating patient and formulating plan - 36 minutes
--- NOTE | 2020-05-27 16:56 | EKG ---
Test Reason : Blood Pressure : / mmHG Vent. Rate : 079 BPM Atrial Rate : 079 BPM P-R Int : 138 ms QRS Dur : 080 ms QT Int : 350 ms P-R-T Axes : 057 059 252 degrees QTc Int : 401 ms SINUS RHYTHM WITH PREMATURE ATRIAL COMPLEXES NONSPECIFIC T WAVE ABNORMALITY ABNORMAL ECG WHEN COMPARED WITH ECG OF 25-MAY-2020 09:17, PREMATURE ATRIAL COMPLEXES ARE NOW PRESENT NONSPECIFIC T WAVE ABNORMALITY NOW EVIDENT IN INFERIOR LEADS NONSPECIFIC T WAVE ABNORMALITY NOW EVIDENT IN LATERAL LEADS QT HAS SHORTENED Confirmed by CAROLINE LAMBERT MD ([id number]) on 05/27/2020 4:56:41 PM Referred By: Confirmed By:CAROLINE LAMBERT MD
--- NOTE | 2020-05-27 18:18 | PN ---
Teaching Attending Note Name of Resident: Alyssa Bautista ATTENDING PHYSICIAN STATEMENT I saw and evaluated the patient. I reviewed the resident's note and discussed the case with the resident. I agree with the resident's findings and plan as documented. ASSESSMENT AND PLAN: Patient is a 70 year old female with past medical history of DM, Right DM foot ulcer, chronic osteomyelitis, Left BKA, CHF, CKD, OA, KARIS, HTN, HLD, Charcot's joints, presented to the ED in respiratory distress and was subsequently intubated. We were called for evaluation of elevated PT/INR. #Elevated PT/INR Due to sepsis/bactermia due to liver injury in setting of sepsis ? componenet of vit. K deficiency improving on antibiotics #Leukocytosis -due to sepsis 2/2 PNA, bacteremia \ #Normocytic anemia -likely due to anemia of chronic disease,+ iron deficiency -iron studies on 05/14 revealed low iron of 25, TSAT 11%, indicate iron deficiency -would hold off on IV iron in setting of acute infection -monitor H/H and transfuse prn to keep hgb >7 rt. breast edema last admission due to generalized anasarca -- much improved. suspect due to anasarca. improved will need outpatient imaging eventually Echo s/o infiltrative cardiac disease --r/o amyloidosis Refused fat pad biopsy in the past will need cardiology follow up and w/u of this on heparin for NSTEMI --per cardiology
[2020-05-27] MEDS: CHLORHEXIDINE GLUCONATE 4% CLEANSER FOR DECOLONIZATION TP SCH (21:53)
--- NOTE | 2020-05-28 01:17 | PN ---
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, Physician Chief Complaint: Pt intubated; little response History of Present Illness: Ms. Figueroa is a 70 year old black female (b. 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 foot, Chronic osteomyelitis of right foot, Diabetic neuropathy, Left leg below knee amputation, OA, Iron deficiency anemia, HLD, HTN, Charcot's joint, ESBL resistance, recently discharged from [facility] after treatment for CHF, who presents to the ED BIBA from [facility] for evaluation of hypoxia and AMS. Allergies: NKA Social history: No reported hx of tobacco use, alcohol use or illicit drug use. PCP: Romain Carvalho JR - Current Medication List Current Medications: Active Medications Chlorhexidine Gluconate (Hibiclens For Decolonization -) 1 applic TP HS [facility] Last Admin: 05/27/20 21:53 Dose: 1 applic Documented by: Collagenase (Santyl -) 1 applic TP DAILY [facility]; Protocol Last Admin: 05/27/20 09:19 Dose: 1 applic Documented by: Heparin Sodium (Porcine) (Heparin -) 1,000 unit IVPUSH PRN PRN PRN Reason: Heparin Heparin Sodium (Porcine) (Heparin -) 5,000 unit IVPUSH PRN PRN PRN Reason: Heparin Last Admin: 05/27/20 19:06 Dose: 5,000 unit Documented by: Fentanyl (Sublimaze Ivpb) 500 mcg in 100 mls @ 16.329 mls/hr IVPB TITR [facility] Last Admin: 05/27/20 06:33 Dose: 0.31 mcg/kg/hr, 5 mls/hr Documented by: Heparin Sodium (Porcine) 25, (000 unit/ Sodium Chloride) 500 mls @ 20 mls/hr IV TITR [facility]; Protocol Last Titration: 05/27/20 19:01 Dose: 1,150 unit/hr, 23 mls/hr Documented by: Meropenem 1 gm/ Dextrose 100 mls @ 200 mls/hr IVPB BID [facility] Last Admin: 05/27/20 21:53 Dose: 200 mls/hr Documented by: Sodium Chloride (Normal Saline -) 1,000 mls @ 84 mls/hr IV ASDIR [facility] Last Admin: 05/27/20 14:01 Dose: 84 mls/hr Documented by: Insulin Aspart (Novolog Vial Sliding Scale -) 1 vial SQ TID [facility]; Protocol Last Admin: 05/27/20 21:52 Dose: Not Given Documented by: Mupirocin (Bactroban Ointment (For Decolonization) -) 1 applic NS BID [facility] Stop: 05/30/20 21:59 Last Admin: 05/27/20 21:53 Dose: 1 applic Documented by: Pantoprazole Sodium (Protonix Iv) 40 mg IVPUSH DAILY [facility] Last Admin: 05/27/20 09:19 Dose: 40 mg Documented by: - Objective Vital Signs: Vital Signs Temperature 97.5 F L 05/27/20 18:00 Pulse Rate 80 05/27/20 18:00 Respiratory Rate 14 05/27/20 23:00 Blood Pressure 139/80 05/27/20 18:00 O2 Sat by Pulse Oximetry (%) 100 05/27/20 23:00 Constitutional: Yes: Obese, Other Eyes: Yes: WNL Neck: Yes: Decreased ROM, Other (RIJ catheter) Cardiovascular: Yes: S1, S2 Respiratory: Yes: Diminished (bibasilar), Mechanically Ventilated Gastrointestinal: Yes: Soft ...Rectal Exam: Yes: Other Genitourinary: Yes: Lynn Present. No: Anuria Breast(s): Yes: WNL Musculoskeletal: Yes: Muscle Weakness Extremities: Yes: Cool Edema: Yes Edema: LLE: Trace, RLE: Trace Peripheral Pulses WNL: No Peripheral Pulses: Left Doralis Pedis: 1+, Right Dorsalis Pedis: 1+ Integumentary: Yes: Venous Stasis Changes Neurological: Yes: Unresponsive, Weakness Psychiatric: Yes: Other Labs: CBC, BMP 05/27/20 05:30 05/27/20 05:30 INR, PTT INR 1.58 (0.83-1.09) H 05/27/20 05:30 Fibrinogen 298.0 mg/dL (238-498) 05/26/20 05:16 Abnormal Lab Results 05/27/20 05/27/20 05/28/20 05:30 18:08 00:00 WBC RBC Hgb Hct RDW Absolute Neuts (auto) Neutrophils % Neutrophils % (Manual) 91.0 H Lymphocytes % Lymphocytes % (Manual) 2.0 L Monocytes % (Manual) 3 L D PTT (Actin FS) 37.9 H 237.3 H BUN Creatinine Random Glucose Calcium Magnesium Total Bilirubin AST ALT Alkaline Phosphatase Albumin 05/28/20 05/28/20 06:00 06:00 WBC 11.6 H RBC 3.23 L Hgb 8.8 L Hct 27.5 L RDW 19.8 H Absolute Neuts (auto) 10.5 H Neutrophils % 90.0 H Neutrophils % (Manual) Lymphocytes % 3.4 L D Lymphocytes % (Manual) Monocytes % (Manual) PTT (Actin FS) BUN 48.1 H Creatinine 1.8 H Random Glucose 188 H Calcium 8.3 L Magnesium 2.8 H Total Bilirubin 1.1 H AST 343 H ALT 777 H Alkaline Phosphatase 265 H Albumin 1.9 L - ....Imaging Chest X-ray: Image Reviewed EKG: Image Reviewed Assessment/Plan 70 yr old black woman with PMHx low-normal systolic, diastolic CHF, ?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 foot, Chronic osteomyelitis of right foot, Diabetic neuropathy, Left leg below knee amputation, renal dysfunction, OA, Iron deficiency anemia, HLD, HTN, ESBL resistance, who presents to the ED from [facility] for evaluation of hypoxia and AMS requiring intubation after recent admission for CHF. Suspected multilobar pnemonia and sepsis. Plan: Remains intubated; on Assist control mechanical ventilation currently hemodynamicaly stable (off pressors); metoprolol and amlodipine held. Leukocytosis 24-->17; antibiotics per ID F/u Hb, stool quaiac (Hb 10.6-->9.1) On furosemide IVP; F/u renal w/u with pool installer. Amyloidosis w/u at [facility] Heart Failure [facility] pending. CC time spent 35 minutes.
[2020-05-28] MEDS: SODIUM CHLORIDE 1,000 ML IV SCH (06:02)
[2020-05-28] MEDS: FENTANYL NS IVPB 500 MCG/100 ML BAG IVPB SCH (06:07)
[2020-05-28] MEDS: INSULIN SLIDING SCALE (NOVOLOG) 1 VIAL SQ SCH ×3 (06:38→23:05)
[2020-05-28 07:19] LABS: BASO % 0.6 % (0-2.0); EOS % 1.2 % (0-4.5); HEMATOCRIT 27.5 % (32.4-45.2); HEMOGLOBIN 8.8 GM/dL (10.7-15.3); LYMPH % 3.4 % (8-40); MCH 27.4 pg (25.7-33.7); MCHC 32.1 g/dl (32.0-36.0); MEAN CELL VOLUME 85.1 fl (80-96); MEAN PLT VOLUME 9.3 fl (7.5-11.1); MONO % 4.8 % (3.8-10.2); PLATELET COUNT 223 K/MM3 (134-434); RBC 3.23 M/mm3 (3.60-5.2); RDW 19.8 % (11.6-15.6); WHITE BLOOD COUNT 11.6 K/mm3 (4.0-10.0)
[2020-05-28 07:53] LABS: ALBUMIN 1.9 g/dl (3.4-5.0); BILIRUBIN,TOTAL 1.1 mg/dL (0.2-1); BLOOD UREA NITROGEN 48.1 mg/dL (7-18); CALCIUM 8.3 mg/dL (8.5-10.1); CREATININE 1.8 mg/dL (0.55-1.3); MAGNESIUM 2.8 mg/dL (1.8-2.4); PHOSPHOROUS 2.8 mg/dL (2.5-4.9); POTASSIUM 3.8 mmol/L (3.5-5.1); TOT PROT 7.1 g/dl (6.4-8.2)
--- NOTE | 2020-05-28 08:20 | PN ---
Physical Exam: SUBJECTIVE: Patient seen and examined sedated and intubated, responding to commands, can squeeze finger. OBJECTIVE: Vital Signs Period Temp Pulse Resp BP Sys/Dobson Pulse Ox Last 24 Hr 97 F-98.0 F 73-89 11-15 102-145/58-89 97-107 GENERAL: Intubated & Sedated HEAD: Normal with no signs of trauma. EYES: Not assessed NECK: Supple, w/o lymphadenopathy LUNGS: On ventilator. Breath sounds improving HEART: Regular rate and rhythm, normal S1 and S2 without murmur, rub or gallop. ABDOMEN: Distension improving UPPER EXTREMITIES: 2+ pulses, warm, well-perfused. No cyanosis. No clubbing. LOWER EXTREMITIES: Left BKA, R foot ulcer lateral aspect. NEUROLOGICAL: Not assessed PSYCHIATRIC: Not assessed Laboratory Results - last 24 hr CBC, BMP 05/28/20 06:00 05/28/20 06:00 INR, PTT INR 1.58 (0.83-1.09) H 05/27/20 05:30 Fibrinogen 298.0 mg/dL (238-498) 05/26/20 05:16 Microbiology 05/25/20 18:30 Gram Stain - Final Sputum - Endotrachea Suction/Ventilator Sputum Culture - Final Yeast Like Organism 05/25/20 09:40 Blood Culture - Final Blood - Peripheral Venous Lactose Fermenting Neg Bacilli 05/25/20 09:35 Blood Culture - Final Blood - Peripheral Venous Citrobacter Koseri Active Medications Chlorhexidine Gluconate (Hibiclens For Decolonization -) 1 applic TP HS [facility] Last Admin: 05/27/20 21:53 Dose: 1 applic Documented by: Collagenase (Santyl -) 1 applic TP DAILY [facility]; Protocol Last Admin: 05/28/20 09:18 Dose: 1 applic Documented by: Heparin Sodium (Porcine) (Heparin -) 1,000 unit IVPUSH PRN PRN PRN Reason: Heparin Last Admin: 05/28/20 16:10 Dose: 1,000 unit Documented by: Heparin Sodium (Porcine) (Heparin -) 5,000 unit IVPUSH PRN PRN PRN Reason: Heparin Last Admin: 05/28/20 08:28 Dose: 5,000 unit Documented by: Heparin Sodium (Porcine) 25, (000 unit/ Sodium Chloride) 500 mls @ 20 mls/hr IV TITR [facility]; Protocol Last Admin: 05/28/20 16:09 Dose: 1,100 unit/hr, 22 mls/hr Documented by: Meropenem 1 gm/ Dextrose 100 mls @ 200 mls/hr IVPB BID [facility] Last Admin: 05/28/20 09:17 Dose: 200 mls/hr Documented by: Fentanyl (Sublimaze Ivpb) 500 mcg in 100 mls @ 5 mls/hr IVPB TITR [facility]; Protocol Last Titration: 05/28/20 09:00 Dose: 0 mcg/hr, 0 mls/hr Documented by: Insulin Aspart (Novolog Vial Sliding Scale -) 1 vial SQ TID [facility]; Protocol Last Admin: 05/28/20 13:26 Dose: 4 units Documented by: Mupirocin (Bactroban Ointment (For Decolonization) -) 1 applic NS BID [facility] Stop: 05/30/20 21:59 Last Admin: 05/28/20 09:17 Dose: 1 applic Documented by: Pantoprazole Sodium (Protonix Iv) 40 mg IVPUSH DAILY [facility] Last Admin: 05/28/20 09:17 Dose: 40 mg Documented by: ASSESSMENT/PLAN: 70 year old female with a significant PMHx of Uncontrolled DM, Diabetic foot ulcer on R. foot, Chronic osteomyelitis of right foot, Diabetic neuropathy, Left leg below knee amputation, OA, Iron deficiency anemia, HLD, HTN, Charcot's joint, ESBL resistance and CHF who presents to the ED from [facility] for evaluation of hypoxia and AMS. The patient was previously discharged on 05/23 after having been treated for G(-) Bacteremia. GENERAL/NEURO -VSS -Sedated & Intubated -Weaning Fio2 @ 40 -Fentanyl weaned to 20 (05/27) -Central line in place (05/25) -Monitor Neuro signs -Will attempt trials of weaning & sedation vacation CARDIAC -History of CHF -ECHO (05/12): EF: 40% Moderate concentric LV hypertrophy, systolic function moderately reduced. Suggestive of infiltrative amyloid cardiomyopathy. Diastolic dysunction (grade 3, restrictive pattern), consistent w/ increased atrial pressure. Mild tricuspid regurg w/ pulmonary htn. -CT Chest: The heart is slightly enlarged. No gross pericardial effusion is identified -Elevated K+: EKG shows no abnormalities --> Repeat EKG shows lengthening QT -Troponemia: 0.35 (05/25), will trend. Likely due to sepsis --> 1.84 (05/26) -Monitor MAP >65, -Add Levophed as needed PULM -Septic Shock 2/2 likely to pneumonia. Can not rule out UTI -Sedated & Intubated -Fentanyl @ 25 Drip -Vent: 450/14/40/5 -Sputum Cultures, Legionella Cultures sent -CT Chest: Atelectatic changes in the left lung. Moderate elevation of the right hemidiaphragm with consolidation/atelectasis in the right lower lobe and to a lesser extent in the right middle lobe as well as a [id number] right pleural effusion suggestive of pneumonia. -Monitor O2 Sats ENDOCRINE -Hx of Diabetes -ISS TID per protocol -Monitor BG q6 GASTRO -Abdominal Ascites 2/2 to TONIA and chronic CHF -Hepatomegally noted on CT -LFTs elevated, will trend --> Decreasing (05/26) -Heme Consult: likely 2/2 liver disease, with predominant effect on FVII, PTT normal -FOBT Negative RENAL -Pre-renal TONIA likely 2/2 sepsis and hypoperfusion -UA shows 2+ Blood -Lynn in Place: Monitor I/Os -Monitor creatinine --> Trending down (05/27) -Monitor Potassium: Normalized (05/27) -Monitor Lactic Acid: FU repeat ABG -Dr. Berry Nephrology Consulted: 2/2 TONIA in the setting of chronic CHF w/ Ascites -(05/28): Lasix given 2/2 increased effusions on CXR INFECTIOUS -Septic Shock likely 2/2 Pneumonia, can not rule out UTI (see UA) -Blood, Urine, Sputum, Legionella Cultures sent -Blood Cx: Lactose Fermenting GNB, awaiting organism (05/26) -See Culture table above -Urinalysis: +2 LE, +2 Blood -Covid negative -Zosyn DC -Vanc DC -ID Consulted: Meropenem ordered -Wound Care consulted 2/2 R foot ulcer: No need for surgical intervention (05/26) SOCIAL WORK -(05/27): -Social work consult placed -[facility] updated on ptn -Ptns pre admission status was lucid and mobile w/ wheel chair prior to admission. Sick 3 times in the past year while at [facility], unable to leave since Covid. Prior to that lived alone at home by herself, able to complete ADL PPx -Patoprazol -Heparin Drip, monitor PTT FEN Fluid: No fluids 2/2 edema Electrolytes: Monitor K+, FU BMP Nutrition: Tube Feeds per [employer] Lines: -Central Line (05/25) -Lynn Catheter (05/25) -ET Tube (05/25) Visit type - Emergency Visit Emergency Visit: No - New Patient This patient is new to me today: No - Critical Care Critical Care patient: Yes Total Critical Care Time (in minutes): 36 Critical Care Statement: The care of this patient involved high complexity decision making to prevent further life threatening deterioration of the patient's condition and/or to evaluate & treat vital organ system(s) failure or risk of failure. - Discharge Referral Referred to [facility] Med P.C.: No - Medication Review Med list reviewed for High Risk Meds patients 65 and older: Yes ATTENDING PHYSICIAN STATEMENT I saw and evaluated the patient. I reviewed the resident's note and discussed the case with the resident. I agree with the resident's findings and plan as documented. SUBJECTIVE: OBJECTIVE: ASSESSMENT AND PLAN:
[2020-05-28] MEDS: HEPARIN NA (PORCINE) 5,000 UNITS/ML 1ML VIAL IVPUSH PRN ×3 (08:28→23:48)
[2020-05-28] MEDS ORDERED: MEROPENEM 1 GM VIAL (RESTRICTED TO ID) IVPB ONE ×2 (08:59→22:06)
[2020-05-28] MEDS ORDERED: DEXTROSE 5%-WATER 100 ML IVPB ONE ×2 (08:59→22:06)
[2020-05-28] MEDS: FUROSEMIDE 40 MG/4 ML INJECTABLE VIAL IVPUSH SCH ×2 (09:17→17:13)
[2020-05-28] MEDS: PANTOPRAZOLE SODIUM 40 MG VIAL IVPUSH SCH (09:17)
[2020-05-28] MEDS: MEROPENEM 1 GM in DEXTROSE 5%-WATER 100 ML IVPB SCH ×2 (09:17→23:05)
[2020-05-28] MEDS: MUPIROCIN 2% TOPICAL OINTMENT FOR DECOLONIZATION NS SCH ×2 (09:17→23:04)
[2020-05-28] MEDS: COLLAGENASE CLOSTRIDIUM HIST. 30 GRAMS TUBE TP SCH (09:18)
--- NOTE | 2020-05-28 09:31 | PN ---
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, Physician Chief Complaint: INTUBATED SEDATED EVENTS AND NOTES REVIEWED - Current Medication List Current Medications: Active Medications Chlorhexidine Gluconate (Hibiclens For Decolonization -) 1 applic TP HS [facility] Last Admin: 05/27/20 21:53 Dose: 1 applic Documented by: Collagenase (Santyl -) 1 applic TP DAILY [facility]; Protocol Last Admin: 05/28/20 09:18 Dose: 1 applic Documented by: Furosemide (Lasix Injection -) 40 mg IVPUSH Q8H-IV [facility] Stop: 05/28/20 18:01 Last Admin: 05/28/20 09:17 Dose: 40 mg Documented by: Heparin Sodium (Porcine) (Heparin -) 1,000 unit IVPUSH PRN PRN PRN Reason: Heparin Heparin Sodium (Porcine) (Heparin -) 5,000 unit IVPUSH PRN PRN PRN Reason: Heparin Last Admin: 05/28/20 08:28 Dose: 5,000 unit Documented by: Heparin Sodium (Porcine) 25, (000 unit/ Sodium Chloride) 500 mls @ 20 mls/hr IV TITR [facility]; Protocol Last Titration: 05/28/20 08:28 Dose: 1,000 unit/hr, 20 mls/hr Documented by: Meropenem 1 gm/ Dextrose 100 mls @ 200 mls/hr IVPB BID [facility] Last Admin: 05/28/20 09:17 Dose: 200 mls/hr Documented by: Sodium Chloride (Normal Saline -) 1,000 mls @ 84 mls/hr IV ASDIR [facility] Last Admin: 05/28/20 06:02 Dose: 84 mls/hr Documented by: Fentanyl (Sublimaze Ivpb) 500 mcg in 100 mls @ 5 mls/hr IVPB TITR [facility]; Protocol Last Admin: 05/28/20 06:07 Dose: 25 mcg/hr, 5 mls/hr Documented by: Insulin Aspart (Novolog Vial Sliding Scale -) 1 vial SQ TID [facility]; Protocol Last Admin: 05/28/20 06:38 Dose: 2 units Documented by: Mupirocin (Bactroban Ointment (For Decolonization) -) 1 applic NS BID [facility] Stop: 05/30/20 21:59 Last Admin: 05/28/20 09:17 Dose: 1 applic Documented by: Pantoprazole Sodium (Protonix Iv) 40 mg IVPUSH DAILY [facility] Last Admin: 05/28/20 09:17 Dose: 40 mg Documented by: - Objective Vital Signs: Vital Signs Temperature 98.0 F 05/28/20 05:00 Pulse Rate 82 05/28/20 08:22 Respiratory Rate 14 05/28/20 08:22 Blood Pressure 128/69 05/28/20 08:00 O2 Sat by Pulse Oximetry (%) 99 05/28/20 08:22 Constitutional: Yes: Other Cardiovascular: Yes: Pulse Irregular Respiratory: Yes: Diminished, Mechanically Ventilated Gastrointestinal: Yes: Soft Genitourinary: Yes: Campos Present Musculoskeletal: Yes: Muscle Weakness Integumentary: Yes: Pressure Ulcer Labs: CBC, BMP 05/28/20 06:00 05/28/20 06:00 INR, PTT INR 1.58 (0.83-1.09) H 05/27/20 05:30 Fibrinogen 298.0 mg/dL (238-498) 05/26/20 05:16 Problem List - Problems (1) Diabetic foot ulcer Code(s): E11.621 - TYPE 2 DIABETES MELLITUS WITH FOOT ULCER; L97.509 - NON- PRESSURE CHRONIC ULCER OTH PRT UNSP FOOT W UNSP SEVERITY Qualifiers: Diabetes mellitus type: type 1 Laterality: right (2) Sepsis Code(s): A41.9 - SEPSIS, UNSPECIFIED ORGANISM (3) Septic shock Code(s): A41.9 - SEPSIS, UNSPECIFIED ORGANISM; R65.21 - SEVERE SEPSIS WITH SEPTIC SHOCK (4) Acute on chronic renal failure Code(s): N17.9 - ACUTE KIDNEY FAILURE, UNSPECIFIED; N18.9 - CHRONIC KIDNEY DISEASE, UNSPECIFIED Qualifiers: Acute renal failure type: unspecified Chronic kidney disease stage: unspeci fied stage Qualified Code(s): N17.9 - Acute kidney failure, unspecified; N18.9 - Chronic kidney disease, unspecified (5) Amyloid disease Code(s): E85.9 - AMYLOIDOSIS, UNSPECIFIED (6) Anemia Code(s): D64.9 - ANEMIA, UNSPECIFIED (7) Bacteremia Code(s): R78.81 - BACTEREMIA (8) CHF (congestive heart failure) Code(s): I50.9 - HEART FAILURE, UNSPECIFIED Qualifiers: Heart failure type: unspecified Heart failure chronicity: unspecified Qualified Code(s): I50.9 - Heart failure, unspecified Assessment/Plan IV ABX PER ID RESPIRATORY SUPPORT ON VENTILLATOR WILL NEED PULMONARY F/U FOR WEANING PROTOCOL. CAMPOS IN PLACE NEPHROLOGY F/U FOR ARF WOUND CARE FOOT ULCER PODIATRY/VASC SURGERY EVAL
--- NOTE | 2020-05-28 14:05 | PN ---
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, Physician History of Present Illness: continues to be intubated - Current Medication List Current Medications: Active Medications Chlorhexidine Gluconate (Hibiclens For Decolonization -) 1 applic TP HS [facility] Last Admin: 05/27/20 21:53 Dose: 1 applic Documented by: Collagenase (Santyl -) 1 applic TP DAILY [facility]; Protocol Last Admin: 05/28/20 09:18 Dose: 1 applic Documented by: Furosemide (Lasix Injection -) 40 mg IVPUSH Q8H-IV [facility] Stop: 05/28/20 18:01 Last Admin: 05/28/20 09:17 Dose: 40 mg Documented by: Heparin Sodium (Porcine) (Heparin -) 1,000 unit IVPUSH PRN PRN PRN Reason: Heparin Heparin Sodium (Porcine) (Heparin -) 5,000 unit IVPUSH PRN PRN PRN Reason: Heparin Last Admin: 05/28/20 08:28 Dose: 5,000 unit Documented by: Heparin Sodium (Porcine) 25, (000 unit/ Sodium Chloride) 500 mls @ 20 mls/hr IV TITR [facility]; Protocol Last Titration: 05/28/20 08:28 Dose: 1,000 unit/hr, 20 mls/hr Documented by: Meropenem 1 gm/ Dextrose 100 mls @ 200 mls/hr IVPB BID [facility] Last Admin: 05/28/20 09:17 Dose: 200 mls/hr Documented by: Fentanyl (Sublimaze Ivpb) 500 mcg in 100 mls @ 5 mls/hr IVPB TITR [facility]; Protocol Last Admin: 05/28/20 06:07 Dose: 25 mcg/hr, 5 mls/hr Documented by: Insulin Aspart (Novolog Vial Sliding Scale -) 1 vial SQ TID [facility]; Protocol Last Admin: 05/28/20 13:26 Dose: 4 units Documented by: Mupirocin (Bactroban Ointment (For Decolonization) -) 1 applic NS BID [facility] Stop: 05/30/20 21:59 Last Admin: 05/28/20 09:17 Dose: 1 applic Documented by: Pantoprazole Sodium (Protonix Iv) 40 mg IVPUSH DAILY [facility] Last Admin: 05/28/20 09:17 Dose: 40 mg Documented by: - Objective Vital Signs: Vital Signs Temperature 97.5 F L 05/28/20 10:00 Pulse Rate 94 H 05/28/20 12:00 Respiratory Rate 16 05/28/20 12:06 Blood Pressure 139/74 05/28/20 12:00 O2 Sat by Pulse Oximetry (%) 97 05/28/20 12:13 Constitutional: Yes: Other Cardiovascular: Yes: S1, S2 Respiratory: Yes: Intubated, Mechanically Ventilated Gastrointestinal: Yes: Normal Bowel Sounds, Soft Musculoskeletal: Yes: WNL Extremities: Yes: WNL Neurological: Yes: Other Psychiatric: Yes: Other Labs: CBC, BMP 05/28/20 06:00 05/28/20 06:00 INR, PTT INR 1.58 (0.83-1.09) H 05/27/20 05:30 Fibrinogen 298.0 mg/dL (238-498) 05/26/20 05:16 - ....Imaging Chest X-ray: Report Reviewed, Image Reviewed Assessment/Plan Acute Respiratory Failure due to Multi-lobar PNA R/O Aspiration Uncontrolled DM Right diabetic foot ulcer Chronic osteomyelitis of right foot Diabetic neuropathy Left BKA OA Iron deficiency anemia HLD HTN Charcot's joint plan meropenam asp precautions await for all cx reportys close watch nephro on case icu mgmt cc 37 min
--- NOTE | 2020-05-28 14:07 | PN ---
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, Physician History of Present Illness: continues to be intubated cx results noted - Current Medication List Current Medications: Active Medications Chlorhexidine Gluconate (Hibiclens For Decolonization -) 1 applic TP HS [facility] Last Admin: 05/27/20 21:53 Dose: 1 applic Documented by: Collagenase (Santyl -) 1 applic TP DAILY [facility]; Protocol Last Admin: 05/28/20 09:18 Dose: 1 applic Documented by: Furosemide (Lasix Injection -) 40 mg IVPUSH Q8H-IV [facility] Stop: 05/28/20 18:01 Last Admin: 05/28/20 09:17 Dose: 40 mg Documented by: Heparin Sodium (Porcine) (Heparin -) 1,000 unit IVPUSH PRN PRN PRN Reason: Heparin Heparin Sodium (Porcine) (Heparin -) 5,000 unit IVPUSH PRN PRN PRN Reason: Heparin Last Admin: 05/28/20 08:28 Dose: 5,000 unit Documented by: Heparin Sodium (Porcine) 25, (000 unit/ Sodium Chloride) 500 mls @ 20 mls/hr IV TITR [facility]; Protocol Last Titration: 05/28/20 08:28 Dose: 1,000 unit/hr, 20 mls/hr Documented by: Meropenem 1 gm/ Dextrose 100 mls @ 200 mls/hr IVPB BID [facility] Last Admin: 05/28/20 09:17 Dose: 200 mls/hr Documented by: Fentanyl (Sublimaze Ivpb) 500 mcg in 100 mls @ 5 mls/hr IVPB TITR [facility]; Protocol Last Admin: 05/28/20 06:07 Dose: 25 mcg/hr, 5 mls/hr Documented by: Insulin Aspart (Novolog Vial Sliding Scale -) 1 vial SQ TID [facility]; Protocol Last Admin: 05/28/20 13:26 Dose: 4 units Documented by: Mupirocin (Bactroban Ointment (For Decolonization) -) 1 applic NS BID [facility] Stop: 05/30/20 21:59 Last Admin: 05/28/20 09:17 Dose: 1 applic Documented by: Pantoprazole Sodium (Protonix Iv) 40 mg IVPUSH DAILY [facility] Last Admin: 05/28/20 09:17 Dose: 40 mg Documented by: - Objective Vital Signs: Vital Signs Temperature 97.5 F L 08/21/20 10:00 Pulse Rate 94 H 05/28/20 12:00 Respiratory Rate 16 05/28/20 12:06 Blood Pressure 139/74 05/28/20 12:00 O2 Sat by Pulse Oximetry (%) 97 05/28/20 12:13 Constitutional: Yes: Other Cardiovascular: Yes: S1, S2 Respiratory: Yes: Intubated, Mechanically Ventilated Gastrointestinal: Yes: Normal Bowel Sounds, Soft Musculoskeletal: Yes: WNL Extremities: Yes: WNL Edema: LLE: 1+, RLE: 1+ Neurological: Yes: Other Labs: CBC, BMP 05/28/20 06:00 05/28/20 06:00 INR, PTT INR 1.58 (0.83-1.09) H 05/27/20 05:30 Fibrinogen 298.0 mg/dL (238-498) 05/26/20 05:16 Assessment/Plan Acute Respiratory Failure due to Multi-lobar PNA R/O Aspiration Uncontrolled DM Right diabetic foot ulcer Chronic osteomyelitis of right foot Diabetic neuropathy Left BKA OA Iron deficiency anemia HLD HTN Charcot's joint gm negative bacteremia plan meropenam asp precautions await for all cx reportys close watch nephro on case icu mgmt repeat blood cx tomorrow cc 37 min
--- NOTE | 2020-05-28 14:15 | PN ---
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, Physician Chief Complaint: Sepsis History of Present Illness: Seen and examined at the bedside on Vent via ET tube on 40% FiO2 making urine not on pressers sedated on Heparin gtt off IVF - Current Medication List Current Medications: Active Medications Chlorhexidine Gluconate (Hibiclens For Decolonization -) 1 applic TP HS [facility] Last Admin: 05/27/20 21:53 Dose: 1 applic Documented by: Collagenase (Santyl -) 1 applic TP DAILY [facility]; Protocol Last Admin: 05/28/20 09:18 Dose: 1 applic Documented by: Furosemide (Lasix Injection -) 40 mg IVPUSH Q8H-IV [facility] Stop: 05/28/20 18:01 Last Admin: 05/28/20 09:17 Dose: 40 mg Documented by: Heparin Sodium (Porcine) (Heparin -) 1,000 unit IVPUSH PRN PRN PRN Reason: Heparin Heparin Sodium (Porcine) (Heparin -) 5,000 unit IVPUSH PRN PRN PRN Reason: Heparin Last Admin: 05/28/20 08:28 Dose: 5,000 unit Documented by: Heparin Sodium (Porcine) 25, (000 unit/ Sodium Chloride) 500 mls @ 20 mls/hr IV TITR [facility]; Protocol Last Titration: 05/28/20 08:28 Dose: 1,000 unit/hr, 20 mls/hr Documented by: Meropenem 1 gm/ Dextrose 100 mls @ 200 mls/hr IVPB BID [facility] Last Admin: 05/28/20 09:17 Dose: 200 mls/hr Documented by: Fentanyl (Sublimaze Ivpb) 500 mcg in 100 mls @ 5 mls/hr IVPB TITR [facility]; Protocol Last Admin: 05/28/20 06:07 Dose: 25 mcg/hr, 5 mls/hr Documented by: Insulin Aspart (Novolog Vial Sliding Scale -) 1 vial SQ TID [facility]; Protocol Last Admin: 05/28/20 13:26 Dose: 4 units Documented by: Mupirocin (Bactroban Ointment (For Decolonization) -) 1 applic NS BID [facility] Stop: 05/30/20 21:59 Last Admin: 05/28/20 09:17 Dose: 1 applic Documented by: Pantoprazole Sodium (Protonix Iv) 40 mg IVPUSH DAILY [facility] Last Admin: 05/28/20 09:17 Dose: 40 mg Documented by: - Objective Vital Signs: Vital Signs Temperature 97.5 F L 05/28/20 10:00 Pulse Rate 94 H 05/28/20 12:00 Respiratory Rate 16 05/28/20 12:06 Blood Pressure 139/74 05/28/20 12:00 O2 Sat by Pulse Oximetry (%) 97 05/28/20 12:13 Constitutional: Yes: Well Nourished, No Distress, Calm Eyes: Yes: Conjunctiva Clear HENT: Yes: Atraumatic Neck: Yes: Supple Cardiovascular: Yes: Regular Rate and Rhythm Respiratory: Yes: Regular Gastrointestinal: Yes: Soft Extremities: Yes: Amputation. No: Cyanosis Edema: Yes Edema: LLE: 2+, RLE: 2+ Labs: CBC, BMP 05/28/20 06:00 05/28/20 06:00 INR, PTT INR 1.58 (0.83-1.09) H 05/27/20 05:30 Fibrinogen 298.0 mg/dL (238-498) 05/26/20 05:16 Assessment/Plan 70 year old woman with history of systolic heart failure, CKD with baseline Cr of 1.4, DM, Chronic osteomylitis who presented form the NH with respiratory distress and found to have respiratory failure requiring intubation with acute kidney injury. 1. Acute respiratory failure secondary to suspected pneumonia 2. Sepsis from UTI vs. PNA 3. Lactic acidosis in setting of sepsis 4. Acute on chronic renal insufficiency secondary to sepsis/renal hypoprofusion 5. Hx of CHF/Pleural effusions 6. Elevated troponins 7. Hyperkalemia Renal function continues to improve There is no overt electrolyte or acid/base disturbances noted. No acute indication for dialysis Given worsening pulmonary congestion pt is now off IVF and on IV lasix pt repaired Lasix 80mg IV BID on previous admission to achieve adequate diuresis empiric antibiotics as per ICU/ID. Trend renal function and electrolytes daily. Thank you Will follow Joaquín Berry DO
--- NOTE | 2020-05-28 14:27 | PN ---
Teaching Attending Note Name of Resident: Rubens Yanez ATTENDING PHYSICIAN STATEMENT I saw and evaluated the patient. I reviewed the resident's note and discussed the case with the resident. I agree with the resident's findings and plan as documented. SUBJECTIVE: Patient seen and examined in the ICU. Remains intubated and sedated. No pressors. CXR: increasing pleural effusions and congestive changes. Intake & Output 05/25/20 05/26/20 05/27/20 05/28/20 23:59 23:59 23:59 23:59 Intake Total 4223 2567.6 2481.2 1502 Output Total 308 233 8903 900 Balance 3383 1767.6 481.2 602 Weight 180 lb 177 lb 14.609 oz 181 lb 178 lb 5.663 oz Last Vital Signs Temp Pulse Resp BP Pulse Ox 97.5 F L 94 H 16 139/74 97 05/28/20 10:00 05/28/20 12:00 05/28/20 12:06 05/28/20 12:00 05/28/20 12:13 Active Medications Chlorhexidine Gluconate (Hibiclens For Decolonization -) 1 applic TP HS [facility] Last Admin: 05/27/20 21:53 Dose: 1 applic Documented by: Collagenase (Santyl -) 1 applic TP DAILY [facility]; Protocol Last Admin: 05/28/20 09:18 Dose: 1 applic Documented by: Furosemide (Lasix Injection -) 40 mg IVPUSH Q8H-IV [facility] Stop: 05/28/20 18:01 Last Admin: 05/28/20 09:17 Dose: 40 mg Documented by: Heparin Sodium (Porcine) (Heparin -) 1,000 unit IVPUSH PRN PRN PRN Reason: Heparin Heparin Sodium (Porcine) (Heparin -) 5,000 unit IVPUSH PRN PRN PRN Reason: Heparin Last Admin: 05/28/20 08:28 Dose: 5,000 unit Documented by: Heparin Sodium (Porcine) 25, (000 unit/ Sodium Chloride) 500 mls @ 20 mls/hr IV TITR [facility]; Protocol Last Titration: 05/28/20 08:28 Dose: 1,000 unit/hr, 20 mls/hr Documented by: Meropenem 1 gm/ Dextrose 100 mls @ 200 mls/hr IVPB BID [facility] Last Admin: 05/28/20 09:17 Dose: 200 mls/hr Documented by: Fentanyl (Sublimaze Ivpb) 500 mcg in 100 mls @ 5 mls/hr IVPB TITR [facility]; Protocol Last Admin: 05/28/20 06:07 Dose: 25 mcg/hr, 5 mls/hr Documented by: Insulin Aspart (Novolog Vial Sliding Scale -) 1 vial SQ TID [facility]; Protocol Last Admin: 05/28/20 13:26 Dose: 4 units Documented by: Mupirocin (Bactroban Ointment (For Decolonization) -) 1 applic NS BID [facility] Stop: 05/30/20 21:59 Last Admin: 05/28/20 09:17 Dose: 1 applic Documented by: Pantoprazole Sodium (Protonix Iv) 40 mg IVPUSH DAILY [facility] Last Admin: 05/28/20 09:17 Dose: 40 mg Documented by: GENERAL: Intubated and sedated HEAD: Normal with no signs of trauma. EYES: sclera anicteric, conjunctiva clear. EARS, NOSE, THROAT: dry mucous membranes. NECK: Normal range of motion, supple without lymphadenopathy, JVD, or masses. LUNGS: Vented, bilateral coarse rhonchi Right > Left. No wheezes. HEART: Regular rate and rhythm, normal S1 and S2 without murmur, rub or gallop. ABDOMEN: Soft, nontender, not distended, normoactive bowel sounds, no guarding, no rebound, no masses. No hepatomegaly or splenomegaly. MUSCULOSKELETAL: Normal range of motion at all joints. No bony deformities or tenderness. No CVA tenderness. UPPER EXTREMITIES: 2+ pulses, warm, well-perfused. No cyanosis. No clubbing. Cap refill <2 seconds. No peripheral edema. LOWER EXTREMITIES: LLE BKA NEUROLOGICAL: Sedated, non-focal PSYCHIATRIC: Sedated SKIN: Warm, dry, normal turgor, no rashes or lesions noted. ASSESSMENT/PLAN: Acute Respiratory Failure due to Multi-lobar PNA R/O Aspiration Uncontrolled DM Right diabetic foot ulcer Chronic osteomyelitis of right foot Diabetic neuropathy Left BKA OA Iron deficiency anemia HLD HTN Charcot's joint Lasix DC IVF AC Mode of vent ABX coverage per ID Strict I & O IVF Sedation vacation VTE prophylaxis Glycemic control Start wean trials as tolerated Requires ICU monitoring Dr Reyes Critical care time spent in reviewing chart, evaluating patient and formulating plan - 36 minutes
--- NOTE | 2020-05-28 15:08 | PN ---
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 foot, Chronic osteomyelitis of right foot, Diabetic neuropathy, Left leg below knee amputation, OA, Iron deficiency anemia, HLD, HTN, Charcot's joint, ESBL re sistance and who presents to the ED from [facility] for evaluation of hypoxia and AMS. The patient was previously discharged on 05/23 after having been treated for G(-) Bacteremia. History Source: Patient - Current Medication List Current Medications: Active Medications Chlorhexidine Gluconate (Hibiclens For Decolonization -) 1 applic TP HS [facility] Last Admin: 05/27/20 21:53 Dose: 1 applic Documented by: Collagenase (Santyl -) 1 applic TP DAILY [facility]; Protocol Last Admin: 05/28/20 09:18 Dose: 1 applic Documented by: Furosemide (Lasix Injection -) 40 mg IVPUSH Q8H-IV [facility] Stop: 05/28/20 18:01 Last Admin: 05/28/20 09:17 Dose: 40 mg Documented by: Heparin Sodium (Porcine) (Heparin -) 1,000 unit IVPUSH PRN PRN PRN Reason: Heparin Heparin Sodium (Porcine) (Heparin -) 5,000 unit IVPUSH PRN PRN PRN Reason: Heparin Last Admin: 05/28/20 08:28 Dose: 5,000 unit Documented by: Heparin Sodium (Porcine) 25, (000 unit/ Sodium Chloride) 500 mls @ 20 mls/hr IV TITR [facility]; Protocol Last Titration: 05/28/20 08:28 Dose: 1,000 unit/hr, 20 mls/hr Documented by: Meropenem 1 gm/ Dextrose 100 mls @ 200 mls/hr IVPB BID [facility] Last Admin: 05/28/20 09:17 Dose: 200 mls/hr Documented by: Fentanyl (Sublimaze Ivpb) 500 mcg in 100 mls @ 5 mls/hr IVPB TITR [facility]; Protocol Last Admin: 05/28/20 06:07 Dose: 25 mcg/hr, 5 mls/hr Documented by: Insulin Aspart (Novolog Vial Sliding Scale -) 1 vial SQ TID [facility]; Protocol Last Admin: 05/28/20 13:26 Dose: 4 units Documented by: Mupirocin (Bactroban Ointment (For Decolonization) -) 1 applic NS BID [facility] Stop: 05/30/20 21:59 Last Admin: 05/28/20 09:17 Dose: 1 applic Documented by: Pantoprazole Sodium (Protonix Iv) 40 mg IVPUSH DAILY [facility] Last Admin: 05/28/20 09:17 Dose: 40 mg Documented by: - Objective Vital Signs: Vital Signs Temperature 97.5 F L 05/28/20 10:00 Pulse Rate 94 H 05/28/20 12:00 Respiratory Rate 16 05/28/20 12:06 Blood Pressure 139/74 05/28/20 12:00 O2 Sat by Pulse Oximetry (%) 97 05/28/20 12:13 Eyes: Yes: WNL, Conjunctiva Clear, EOM Intact HENT: Yes: WNL, Atraumatic, Normocephalic Neck: Yes: WNL, Supple, Trachea Midline Cardiovascular: Yes: WNL, Regular Rate and Rhythm Respiratory: Yes: Intubated, Mechanically Ventilated Gastrointestinal: Yes: WNL, Normal Bowel Sounds Genitourinary: Yes: WNL Musculoskeletal: Yes: WNL Extremities: Yes: WNL Edema: No Integumentary: Yes: WNL Labs: CBC, BMP 05/28/20 06:00 05/28/20 06:00 INR, PTT INR 1.58 (0.83-1.09) H 05/27/20 05:30 Fibrinogen 298.0 mg/dL (238-498) 05/26/20 05:16 Problem List - Problems (1) Diabetic foot ulcer Code(s): E11.621 - TYPE 2 DIABETES MELLITUS WITH FOOT ULCER; L97.509 - NON- PRESSURE CHRONIC ULCER OTH PRT UNSP FOOT W UNSP SEVERITY Qualifiers: Diabetes mellitus type: type 1 Laterality: right (2) Sepsis Code(s): A41.9 - SEPSIS, UNSPECIFIED ORGANISM (3) Septic shock Code(s): A41.9 - SEPSIS, UNSPECIFIED ORGANISM; R65.21 - SEVERE SEPSIS WITH SEPTIC SHOCK (4) Acute on chronic renal failure Code(s): N17.9 - ACUTE KIDNEY FAILURE, UNSPECIFIED; N18.9 - CHRONIC KIDNEY DISEASE, UNSPECIFIED Qualifiers: Acute renal failure type: unspecified Chronic kidney disease stage: unspecified stage Qualified Code(s): N17.9 - Acute kidney failure, unspecified; N18.9 - Chronic kidney disease, unspecified (5) Amyloid disease Code(s): E85.9 - AMYLOIDOSIS, UNSPECIFIED (6) Anemia Code(s): D64.9 - ANEMIA, UNSPECIFIED (7) Bacteremia Code(s): R78.81 - BACTEREMIA (8) CHF (congestive heart failure) Code(s): I50.9 - HEART FAILURE, UNSPECIFIED Qualifiers: Heart failure type: unspecified Heart failure chronicity: unspecified Qualified Code(s): I50.9 - Heart failure, unspecified (9) Elevated liver enzymes Code(s): R74.8 - ABNORMAL LEVELS OF OTHER SERUM ENZYMES (10) Pleural effusion Code(s): J90 - PLEURAL EFFUSION, NOT ELSEWHERE CLASSIFIED (11) Right lower lobe pneumonia Code(s): J18.9 - PNEUMONIA, UNSPECIFIED ORGANISM Qualifiers: Pneumonia type: due to unspecified organism Qualified Code(s): J18.9 - Pneumonia, unspecified organism (12) Troponin I above reference range Code(s): R79.89 - OTHER SPECIFIED ABNORMAL FINDINGS OF BLOOD CHEMISTRY Assessment/Plan 70 yr old black woman with PMHx low-normal systolic, diastolic CHF, ?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 foot, Chronic osteomyelitis of right foot, Diabetic neuropathy, Left leg below knee amputation, renal dysfunction, OA, Iron deficiency anemia, HLD, HTN, ESBL resistance, who presents to the ED from [facility] for evaluation of hypoxia and AMS requiring intubation after recent admission for CHF. Suspected multilobar pnemonia and sepsis. Plan: Remains intubated; on Assist control mechanical ventilation currently hemodynamicaly stable (off pressors); metoprolol and amlodipine held. Leukocytosis 24-->17; antibiotics per ID F/u Hb, stool quaiac (Hb 10.6-->9.1) On furosemide IVP; F/u renal w/u with certified marine mechanic. Amyloidosis w/u at [facility] pending. CC time spent 35 minutes.
[2020-05-28] MEDS: HEPARIN - 25,000 UNIT in SODIUM CHLORIDE 495 ML IV SCH (16:09)
[2020-05-28] MEDS: CHLORHEXIDINE GLUCONATE 4% CLEANSER FOR DECOLONIZATION TP SCH (23:04)
[2020-05-29] MEDS: FENTANYL NS IVPB 500 MCG/100 ML BAG IVPB SCH (02:06)
[2020-05-29] MEDS: INSULIN SLIDING SCALE (NOVOLOG) 1 VIAL SQ SCH ×3 (06:35→21:27)
[2020-05-29 06:55] LABS: BASO % 0.5 % (0-2.0); EOS % 0.6 % (0-4.5); HEMATOCRIT 27.9 % (32.4-45.2); LYMPH % 5.2 % (8-40); MCH 27.4 pg (25.7-33.7); MCHC 32.3 g/dl (32.0-36.0); MEAN CELL VOLUME 84.7 fl (80-96); MONO % 7.2 % (3.8-10.2); NEUT % 86.5 % (42.8-82.8); PLATELET COUNT 214 K/MM3 (134-434); RDW 20.3 % (11.6-15.6); WHITE BLOOD COUNT 9.2 K/mm3 (4.0-10.0)
[2020-05-29 07:23] LABS: BLOOD UREA NITROGEN 44.6 mg/dL (7-18); CALCIUM 8.6 mg/dL (8.5-10.1); CREATININE 1.6 mg/dL (0.55-1.3); MAGNESIUM 2.6 mg/dL (1.8-2.4); PHOSPHOROUS 2.1 mg/dL (2.5-4.9); POTASSIUM 3.4 mmol/L (3.5-5.1); TOT PROT 7.3 g/dl (6.4-8.2)
[2020-05-29] MEDS: HEPARIN NA (PORCINE) 5,000 UNITS/ML 1ML VIAL IVPUSH PRN ×2 (07:29→14:51)
[2020-05-29] MEDS ORDERED: MEROPENEM 1 GM VIAL (RESTRICTED TO ID) IVPB ONE ×2 (09:08→20:57)
[2020-05-29] MEDS ORDERED: DEXTROSE 5%-WATER 100 ML IVPB ONE ×2 (09:08→20:57)
[2020-05-29] MEDS: MUPIROCIN 2% TOPICAL OINTMENT FOR DECOLONIZATION NS SCH ×2 (09:20→21:19)
[2020-05-29] MEDS: MEROPENEM 1 GM in DEXTROSE 5%-WATER 100 ML IVPB SCH ×2 (09:21→21:19)
[2020-05-29] MEDS: PANTOPRAZOLE SODIUM 40 MG VIAL IVPUSH SCH (09:24)
[2020-05-29] MEDS: COLLAGENASE CLOSTRIDIUM HIST. 30 GRAMS TUBE TP SCH (09:25)
--- NOTE | 2020-05-29 10:52 | PN ---
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, Physician Chief Complaint: STILL INTUBATED AND SEDATED NO EVENTS OVERNIGHT D/W ICU STAFF - Current Medication List Current Medications: Active Medications Chlorhexidine Gluconate (Hibiclens For Decolonization -) 1 applic TP HS [facility] Last Admin: 05/28/20 23:04 Dose: 1 applic Documented by: Collagenase (Santyl -) 1 applic TP DAILY [facility]; Protocol Last Admin: 05/29/20 09:25 Dose: 1 applic Documented by: Heparin Sodium (Porcine) (Heparin -) 1,000 unit IVPUSH PRN PRN PRN Reason: Heparin Last Admin: 05/29/20 07:29 Dose: 1,000 unit Documented by: Heparin Sodium (Porcine) (Heparin -) 5,000 unit IVPUSH PRN PRN PRN Reason: Heparin Last Admin: 05/28/20 23:48 Dose: 5,000 unit Documented by: Heparin Sodium (Porcine) 25, (000 unit/ Sodium Chloride) 500 mls @ 20 mls/hr IV TITR [facility]; Protocol Last Titration: 05/29/20 07:31 Dose: 1,200 unit/hr, 24 mls/hr Documented by: Meropenem 1 gm/ Dextrose 100 mls @ 200 mls/hr IVPB BID [facility] Last Admin: 05/29/20 09:21 Dose: 200 mls/hr Documented by: Fentanyl (Sublimaze Ivpb) 500 mcg in 100 mls @ 5 mls/hr IVPB TITR [facility]; Protocol Last Admin: 05/29/20 02:06 Dose: 50 mcg/hr, 10 mls/hr Documented by: Insulin Aspart (Novolog Vial Sliding Scale -) 1 vial SQ TID [facility]; Protocol Last Admin: 05/29/20 06:35 Dose: 4 units Documented by: Mupirocin (Bactroban Ointment (For Decolonization) -) 1 applic NS BID [facility] Stop: 05/30/20 21:59 Last Admin: 05/29/20 09:20 Dose: 1 applic Documented by: Pantoprazole Sodium (Protonix Iv) 40 mg IVPUSH DAILY [facility] Last Admin: 05/29/20 09:24 Dose: 40 mg Documented by: - Objective Vital Signs: Vital Signs Temperature 98.4 F 05/29/20 06:00 Pulse Rate 68 05/29/20 08:54 Respiratory Rate 14 05/29/20 08:54 Blood Pressure 118/62 05/29/20 08:00 O2 Sat by Pulse Oximetry (%) 100 05/29/20 08:54 Constitutional: Yes: Moderate Distress Cardiovascular: Yes: Pulse Irregular Respiratory: Yes: Diminished, Mechanically Ventilated Gastrointestinal: Yes: Soft Genitourinary: Yes: Lynn Present Musculoskeletal: Yes: Muscle Weakness Neurological: Yes: Weakness Labs: CBC, BMP 05/29/20 06:10 05/29/20 06:10 INR, PTT INR 1.58 (0.83-1.09) H 05/27/20 05:30 Fibrinogen 298.0 mg/dL (238-498) 05/26/20 05:16 Problem List - Problems (1) Diabetic foot ulcer Code(s): E11.621 - TYPE 2 DIABETES MELLITUS WITH FOOT ULCER; L97.509 - NON- PRESSURE CHRONIC ULCER OTH PRT UNSP FOOT W UNSP SEVERITY Qualifiers: Diabetes mellitus type: type 1 Laterality: right (2) Sepsis Code(s): A41.9 - SEPSIS, UNSPECIFIED ORGANISM (3) Septic shock Code(s): A41.9 - SEPSIS, UNSPECIFIED ORGANISM; R65.21 - SEVERE SEPSIS WITH SEPTIC SHOCK (4) Acute on chronic renal failure Code(s): N17.9 - ACUTE KIDNEY FAILURE, UNSPECIFIED; N18.9 - CHRONIC KIDNEY DISEASE, UNSPECIFIED Qualifiers: Acute renal failure type: unspecified Chronic kidney disease stage: unspecified stage Qualified Code(s): N17.9 - Acute kidney failure, unspecified; N18.9 - Chronic kidney disease, unspecified (5) Amyloid disease Code(s): E85.9 - AMYLOIDOSIS, UNSPECIFIED (6) Anemia Code(s): D64.9 - ANEMIA, UNSPECIFIED (7) Bacteremia Code(s): R78.81 - BACTEREMIA (8) CHF (congestive heart failure) Code(s): I50.9 - HEART FAILURE, UNSPECIFIED Qualifiers: Heart failure type: unspecified Heart failure chronicity: unspecified Qualified Code(s): I50.9 - Heart failure, unspecified Assessment/Plan IV ABX PER ID RESPIRATORY SUPPORT ON VENTILLATOR WILL NEED PULMONARY F/U FOR WEANING PROTOCOL. ANDRES IN PLACE NEPHROLOGY F/U FOR ARF WOUND CARE FOOT ULCER PODIATRY/VASC SURGERY EVAL
--- NOTE | 2020-05-29 11:51 | PN ---
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 (short form) - Note 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: Pulm/CCM SUBJECTIVE: Patient seen and examined in the ICU. Remains intubated and sedated. weaning No pressors. CXR: increasing pleural effusions and congestive changes. Vital Signs Temp 98.4 F 05/29/20 10:00 Pulse 68 05/29/20 10:00 Resp 14 05/29/20 10:00 BP 119/64 05/29/20 10:00 Pulse Ox 100 05/29/20 10:00 Intake & Output 05/28/20 05/28/20 05/29/20 11:59 23:59 11:59 Intake Total 1502 1389 881 Output Total 350 1950 600 Balance 1152 -561 281 Weight 80.9 kg 81.3 kg Intake: IV 1402 689 334 Heparin - 25,000 Unit In 55 324 264 Normal Saline - 495 ml @ 1,000 UNIT/HR 20 mls/hr IV TITR [facility] Rx#: [id number] Normal Saline - 1,000 ml 1229 350 @ 84 mls/hr IV ASDIR [facility] Rx#:[id number] SUBLIMAZE IVPB 500 mcg In 118 15 70 100 ml @ 25 MCG/HR 5 mls /hr IVPB TITR [facility] Rx#: [id number] IVPB 100 100 100 Tube Feeding 480 342 Tube Irrigant 120 105 Output: Urine 350 1950 600 Lynn 350 1950 600 Other: Voiding Method Indwelling Catheter Indwelling Catheter Indwelling Catheter Bowel Movement Yes No No Weight Measurement Method [facility] Active Medications Chlorhexidine Gluconate (Hibiclens For Decolonization -) 1 applic TP HS [facility] Last Admin: 05/27/20 21:53 Dose: 1 applic Documented by: Collagenase (Santyl -) 1 applic TP DAILY [facility]; Protocol Last Admin: 05/28/20 09:18 Dose: 1 applic Documented by: Furosemide (Lasix Injection -) 40 mg IVPUSH Q8H-IV [facility] Stop: 05/28/20 18:01 Last Admin: 05/28/20 09:17 Dose: 40 mg Documented by: Heparin Sodium (Porcine) (Heparin -) 1,000 unit IVPUSH PRN PRN PRN Reason: Heparin Heparin Sodium (Porcine) (Heparin -) 5,000 unit IVPUSH PRN PRN PRN Reason: Heparin Last Admin: 08/21/20 08:28 Dose: 5,000 unit Documented by: Heparin Sodium (Porcine) 25, (000 unit/ Sodium Chloride) 500 mls @ 20 mls/hr IV TITR [facility]; Protocol Last Titration: 05/28/20 08:28 Dose: 1,000 unit/hr, 20 mls/hr Documented by: Meropenem 1 gm/ Dextrose 100 mls @ 200 mls/hr IVPB BID [facility] Last Admin: 05/28/20 09:17 Dose: 200 mls/hr Documented by: Fentanyl (Sublimaze Ivpb) 500 mcg in 100 mls @ 5 mls/hr IVPB TITR [facility]; Protocol Last Admin: 05/28/20 06:07 Dose: 25 mcg/hr, 5 mls/hr Documented by: Insulin Aspart (Novolog Vial Sliding Scale -) 1 vial SQ TID [facility]; Protocol Last Admin: 05/28/20 13:26 Dose: 4 units Documented by: Mupirocin (Bactroban Ointment (For Decolonization) -) 1 applic NS BID [facility] Stop: 05/30/20 21:59 Last Admin: 05/28/20 09:17 Dose: 1 applic Documented by: Pantoprazole Sodium (Protonix Iv) 40 mg IVPUSH DAILY [facility] Last Admin: 05/28/20 09:17 Dose: 40 mg Documented by: GENERAL: Intubated and sedated HEAD: Normal with no signs of trauma. EYES: sclera anicteric, conjunctiva clear. EARS, NOSE, THROAT: dry mucous membranes. NECK: Normal range of motion, supple without lymphadenopathy, JVD, or masses. LUNGS: scattered rhonchi, no wheezes HEART: Regular rate and rhythm, normal S1 and S2 without murmur, rub or gallop. ABDOMEN: Soft, nontender, not distended, normoactive bowel sounds, no guarding, no rebound, no masses. No hepatomegaly or splenomegaly. MUSCULOSKELETAL: Normal range of motion at all joints. No bony deformities or tenderness. No CVA tenderness. UPPER EXTREMITIES: 2+ pulses, warm, well-perfused. No cyanosis. No clubbing. Cap refill <2 seconds. No peripheral edema. LOWER EXTREMITIES: LLE BKA NEUROLOGICAL: Sedated, withdrawals to noxious PSYCHIATRIC: Sedated SKIN: Warm, dry, normal turgor, no rashes or lesions noted. ASSESSMENT/PLAN: Acute Respiratory Failure due to Multi-lobar PNA R/O Aspiration Uncontrolled DM Right diabetic foot ulcer Chronic osteomyelitis of right foot Diabetic neuropathy Left BKA OA Iron deficiency anemia HLD HTN Charcot's joint Lasix DC IVF ---> diuresis, 40 now, will go to BID and watch Cr closely AC Mode of vent , starting PS trial ABX coverage per ID Strict I & O IVF Sedation vacation VTE prophylaxis Glycemic control Start wean trials as tolerated Requires ICU monitoring Travon STEWART
[2020-05-29] MEDS: KCL 10 MEQ IVPB 10 MEQ/100 ML INFUS.BAG IVPB SCH ×2 (11:56→12:38)
[2020-05-29] MEDS ORDERED: FUROSEMIDE 40 MG/4 ML INJECTABLE VIAL IVPUSH ONE ×2 (12:15→14:29)
--- NOTE | 2020-05-29 12:15 | PN ---
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, Physician Chief Complaint: Cardiology for Dr. Taylor History of Present Illness: Extubated on 40% VM, lethargic, hemodynamics stable. - Current Medication List Current Medications: Active Medications Chlorhexidine Gluconate (Hibiclens For Decolonization -) 1 applic TP HS [facility] Last Admin: 05/28/20 23:04 Dose: 1 applic Documented by: Collagenase (Santyl -) 1 applic TP DAILY [facility]; Protocol Last Admin: 05/29/20 09:25 Dose: 1 applic Documented by: Furosemide (Lasix Injection -) 40 mg IVPUSH ONCE ONE Stop: 05/29/20 12:16 Last Admin: 05/29/20 11:57 Dose: 40 mg Documented by: Heparin Sodium (Porcine) (Heparin -) 1,000 unit IVPUSH PRN PRN PRN Reason: Heparin Last Admin: 05/29/20 07:29 Dose: 1,000 unit Documented by: Heparin Sodium (Porcine) (Heparin -) 5,000 unit IVPUSH PRN PRN PRN Reason: Heparin Last Admin: 05/28/20 23:48 Dose: 5,000 unit Documented by: Heparin Sodium (Porcine) 25, (000 unit/ Sodium Chloride) 500 mls @ 20 mls/hr IV TITR [facility]; Protocol Last Titration: 05/29/20 07:31 Dose: 1,200 unit/hr, 24 mls/hr Documented by: Meropenem 1 gm/ Dextrose 100 mls @ 200 mls/hr IVPB BID [facility] Last Admin: 05/29/20 09:21 Dose: 200 mls/hr Documented by: Fentanyl (Sublimaze Ivpb) 500 mcg in 100 mls @ 5 mls/hr IVPB TITR [facility]; Protocol Last Titration: 05/29/20 08:00 Dose: 25 mcg/hr, 5 mls/hr Documented by: Potassium Chloride (Potassium Chloride 10 Meq Premix Ivpb -) 10 meq in 100 mls @ 100 mls/hr IVPB Q60M [facility] Stop: 05/29/20 13:59 Last Admin: 05/29/20 11:56 Dose: 100 mls/hr Documented by: Insulin Aspart (Novolog Vial Sliding Scale -) 1 vial SQ TID [facility]; Protocol Last Admin: 05/29/20 06:35 Dose: 4 units Documented by: Mupirocin (Bactroban Ointment (For Decolonization) -) 1 applic NS BID [facility] Stop: 05/30/20 21:59 Last Admin: 05/29/20 09:20 Dose: 1 applic Documented by: Pantoprazole Sodium (Protonix Iv) 40 mg IVPUSH DAILY [facility] Last Admin: 05/29/20 09:24 Dose: 40 mg Documented by: - Objective Vital Signs: Vital Signs Temperature 98.4 F 05/29/20 10:00 Pulse Rate 76 05/29/20 12:00 Respiratory Rate 16 05/29/20 12:00 Blood Pressure 141/79 05/29/20 12:00 O2 Sat by Pulse Oximetry (%) 100 05/29/20 12:00 Constitutional: Yes: No Distress, Calm Neck: Yes: Supple Cardiovascular: Yes: Regular Rate and Rhythm Respiratory: Yes: On Venti-Mask, Rhonchi Gastrointestinal: Yes: Soft, Hypoactive Bowel Sounds Extremities: Yes: Amputation (Left BKA) Edema: Yes Edema: RLE: Trace Labs: CBC, BMP 05/29/20 06:10 05/29/20 06:10 INR, PTT INR 1.58 (0.83-1.09) H 05/27/20 05:30 Fibrinogen 298.0 mg/dL (238-498) 05/26/20 05:16 - ....Imaging Chest X-ray: Report Reviewed (Increasing pleural effusions and congestive changes.) Assessment/Plan - Problems (1) Diabetic foot ulcer Code(s): E11.621 - TYPE 2 DIABETES MELLITUS WITH FOOT ULCER; L97.509 - NON- PRESSURE CHRONIC ULCER OTH PRT UNSP FOOT W UNSP SEVERITY Qualifiers: Diabetes mellitus type: type 1 Laterality: right (2) Sepsis Code(s): A41.9 - SEPSIS, UNSPECIFIED ORGANISM (3) Septic shock Code(s): A41.9 - SEPSIS, UNSPECIFIED ORGANISM; R65.21 - SEVERE SEPSIS WITH SEPTIC SHOCK (4) Acute on chronic renal failure Code(s): N17.9 - ACUTE KIDNEY FAILURE, UNSPECIFIED; N18.9 - CHRONIC KIDNEY DISEASE, UNSPECIFIED Qualifiers: Acute renal failure type: unspecified Chronic kidney disease stage: unspeci fied stage Qualified Code(s): N17.9 - Acute kidney failure, unspecified; N18.9 - Chronic kidney disease, unspecified (5) Amyloid disease Code(s): E85.9 - AMYLOIDOSIS, UNSPECIFIED (6) Anemia Code(s): D64.9 - ANEMIA, UNSPECIFIED (7) Bacteremia Code(s): R78.81 - BACTEREMIA (8) CHF (congestive heart failure) Code(s): I50.9 - HEART FAILURE, UNSPECIFIED Qualifiers: Heart failure type: unspecified Heart failure chronicity: unspecified Qualified Code(s): I50.9 - Heart failure, unspecified (9) Elevated liver enzymes Code(s): R74.8 - ABNORMAL LEVELS OF OTHER SERUM ENZYMES (10) Pleural effusion Code(s): J90 - PLEURAL EFFUSION, NOT ELSEWHERE CLASSIFIED (11) Right lower lobe pneumonia Code(s): J18.9 - PNEUMONIA, UNSPECIFIED ORGANISM Qualifiers: Pneumonia type: due to unspecified organism Qualified Code(s): J18.9 - Pneumonia, unspecified organism (12) Troponin I above reference range Code(s): R79.89 - OTHER SPECIFIED ABNORMAL FINDINGS OF BLOOD CHEMISTRY Assessment/Plan 70 yr old black woman with PMHx low-normal systolic, diastolic CHF, ?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 foot, Chronic osteomyelitis of right foot, Diabetic neuropathy, Left leg below knee amputation, renal dysfunction, OA, Iron deficiency anemia, HLD, HTN, ESBL resistance, who presents to the ED from [facility] for evaluation of hypoxia and AMS requiring intubation after recent admission for CHF. Suspected multilobar pnemonia and sepsis. Demand ischemia, trops downtrending. Plan: Wean FIO2 as tolerated currently hemodynamicaly stable (off pressors); resume metoprolol and amlodipine as tolerated in AM Leukocytosis 24-->17; antibiotics per ID Change Heparin gtt to sc heparin, F/u Hb, stool quaiac (Hb 10.6-->9.1) IV diuresis with monitor diuretic response, renal fxn and electrolytes; F/u renal w/u with perinatal instructor. Amyloidosis w/u at [facility] Failure [facility] pending.
--- NOTE | 2020-05-29 14:13 | PN ---
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, Physician History of Present Illness: remians intubated and sedated - Current Medication List Current Medications: Active Medications Chlorhexidine Gluconate (Hibiclens For Decolonization -) 1 applic TP HS [facility] Last Admin: 05/28/20 23:04 Dose: 1 applic Documented by: Collagenase (Santyl -) 1 applic TP DAILY [facility]; Protocol Last Admin: 05/29/20 09:25 Dose: 1 applic Documented by: Heparin Sodium (Porcine) (Heparin -) 1,000 unit IVPUSH PRN PRN PRN Reason: Heparin Last Admin: 05/29/20 07:29 Dose: 1,000 unit Documented by: Heparin Sodium (Porcine) (Heparin -) 5,000 unit IVPUSH PRN PRN PRN Reason: Heparin Last Admin: 05/28/20 23:48 Dose: 5,000 unit Documented by: Heparin Sodium (Porcine) 25, (000 unit/ Sodium Chloride) 500 mls @ 20 mls/hr IV TITR [facility]; Protocol Last Titration: 05/29/20 07:31 Dose: 1,200 unit/hr, 24 mls/hr Documented by: Meropenem 1 gm/ Dextrose 100 mls @ 200 mls/hr IVPB BID [facility] Last Admin: 05/29/20 09:21 Dose: 200 mls/hr Documented by: Fentanyl (Sublimaze Ivpb) 500 mcg in 100 mls @ 5 mls/hr IVPB TITR [facility]; Protocol Last Titration: 05/29/20 08:00 Dose: 25 mcg/hr, 5 mls/hr Documented by: Insulin Aspart (Novolog Vial Sliding Scale -) 1 vial SQ TID [facility]; Protocol Last Admin: 05/29/20 06:35 Dose: 4 units Documented by: Mupirocin (Bactroban Ointment (For Decolonization) -) 1 applic NS BID [facility] Stop: 05/30/20 21:59 Last Admin: 05/29/20 09:20 Dose: 1 applic Documented by: Pantoprazole Sodium (Protonix Iv) 40 mg IVPUSH DAILY [facility] Last Admin: 05/29/20 09:24 Dose: 40 mg Documented by: - Objective Vital Signs: Vital Signs Temperature 98.4 F 05/29/20 10:00 Pulse Rate 88 05/29/20 14:00 Respiratory Rate 19 05/29/20 14:00 Blood Pressure 154/87 05/29/20 14:00 O2 Sat by Pulse Oximetry (%) 96 05/29/20 14:00 Constitutional: Yes: Other Cardiovascular: Yes: S1, S2 Respiratory: Yes: Intubated, Mechanically Ventilated Gastrointestinal: Yes: Normal Bowel Sounds, Soft Musculoskeletal: Yes: WNL Extremities: Yes: Other Labs: CBC, BMP 05/29/20 06:10 05/29/20 06:10 INR, PTT INR 1.58 (0.83-1.09) H 05/27/20 05:30 Fibrinogen 298.0 mg/dL (238-498) 05/26/20 05:16 Assessment/Plan Acute Respiratory Failure due to Multi-lobar PNA R/O Aspiration Uncontrolled DM Right diabetic foot ulcer Chronic osteomyelitis of right foot Diabetic neuropathy Left BKA OA Iron deficiency anemia HLD HTN Charcot's joint gm negative bacteremia plan meropenam asp precautions await for repeat cx reports close watch nephro on case icu mgmt cc 37 min
[2020-05-29] MEDS: HEPARIN - 25,000 UNIT in SODIUM CHLORIDE 495 ML IV SCH (14:51)
--- NOTE | 2020-05-29 15:30 | PN ---
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 (short form) - Note 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: Problems 1. Acute respiratory failure secondary to suspected pneumonia 2. Sepsis from UTI vs. PNA 3. Lactic acidosis in setting of sepsis 4. Acute on chronic renal insufficiency secondary to sepsis/renal hypoprofusion 5. CKD baseline cr 1.4 6. DM2 6. Hx of CHF/Pleural effusions 7. Elevated troponins 8. Hyperkalemia 9. Chronic osteomyelitis Active Medications Chlorhexidine Gluconate (Hibiclens For Decolonization -) 1 applic TP HS [facility] Last Admin: 05/28/20 23:04 Dose: 1 applic Documented by: Collagenase (Santyl -) 1 applic TP DAILY [facility]; Protocol Last Admin: 05/29/20 09:25 Dose: 1 applic Documented by: Heparin Sodium (Porcine) (Heparin -) 1,000 unit IVPUSH PRN PRN PRN Reason: Heparin Last Admin: 05/29/20 14:51 Dose: 1,000 unit Documented by: Heparin Sodium (Porcine) (Heparin -) 5,000 unit IVPUSH PRN PRN PRN Reason: Heparin Last Admin: 05/28/20 23:48 Dose: 5,000 unit Documented by: Heparin Sodium (Porcine) 25, (000 unit/ Sodium Chloride) 500 mls @ 20 mls/hr IV TITR [facility]; Protocol Last Admin: 05/29/20 14:51 Dose: 1,300 unit/hr, 26 mls/hr Documented by: Meropenem 1 gm/ Dextrose 100 mls @ 200 mls/hr IVPB BID [facility] Last Admin: 05/29/20 09:21 Dose: 200 mls/hr Documented by: Fentanyl (Sublimaze Ivpb) 500 mcg in 100 mls @ 5 mls/hr IVPB TITR [facility]; Protocol Last Titration: 05/29/20 08:00 Dose: 25 mcg/hr, 5 mls/hr Documented by: Insulin Aspart (Novolog Vial Sliding Scale -) 1 vial SQ TID [facility]; Protocol Last Admin: 05/29/20 14:11 Dose: 2 units Documented by: Mupirocin (Bactroban Ointment (For Decolonization) -) 1 applic NS BID [facility] Stop: 05/30/20 21:59 Last Admin: 05/29/20 09:20 Dose: 1 applic Documented by: Pantoprazole Sodium (Protonix Iv) 40 mg IVPUSH DAILY [facility] Last Admin: 05/29/20 09:24 Dose: 40 mg Documented by: Last Vital Signs Temp Pulse Resp BP Pulse Ox 98.4 F 88 19 154/87 96 05/29/20 10:00 05/29/20 14:00 05/29/20 14:00 05/29/20 14:00 05/29/20 14:00 CBC, BMP 05/29/20 06:10 05/29/20 06:10 IMP- Hypokalemia TONIA on CKD not yet at baseline renal function improving Plan- conntinue to monitor renal function and urine output
[2020-05-29] MEDS: HEPARIN NA (PORCINE) 5,000 UNITS/ML 1ML VIAL SQ SCH (21:18)
[2020-05-29] MEDS: CHLORHEXIDINE GLUCONATE 4% CLEANSER FOR DECOLONIZATION TP SCH (21:19)
[2020-05-30] MEDS: hydrALAZINE HCL 20 MG/ML VIAL IVPUSH PRN (06:18)
[2020-05-30] MEDS: INSULIN SLIDING SCALE (NOVOLOG) 1 VIAL SQ SCH ×3 (06:26→23:02)
--- NOTE | 2020-05-30 08:40 | PN ---
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 (short form) - Note 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: Pulm/CCM Patient seen and examined in the ICU. Patient is extubated, no pressors, A&Ox1, HDS Vital Signs Period Temp Pulse Resp BP Sys/Dobson Pulse Ox Last 24 Hr 98.4 F-99.8 F 83-100 13-24 140-175/77-103 97-100 Intake & Output 05/27/20 05/28/20 05/29/20 05/30/20 23:59 23:59 23:59 23:59 Intake Total 2481.2 2891 1627 330 Output Total 1999 2300 2400 0 Balance 481.2 141 -023 -8471 Weight 82.1 kg 80.9 kg 81.3 kg 78.2 kg Active Medications Chlorhexidine Gluconate (Hibiclens For Decolonization -) 1 applic TP HS [facility] Last Admin: 05/29/20 21:19 Dose: 1 applic Documented by: Collagenase (Santyl -) 1 applic TP DAILY [facility]; Protocol Last Admin: 05/30/20 09:38 Dose: 1 applic Documented by: Heparin Sodium (Porcine) (Heparin -) 5,000 unit SQ BID [facility] Last Admin: 05/30/20 09:37 Dose: 5,000 unit Documented by: Hydralazine HCl (Apresoline Injection -) 10 mg IVPUSH Q6H PRN PRN Reason: HYPERTENSION Last Admin: 05/30/20 06:18 Dose: 10 mg Documented by: Meropenem 1 gm/ Dextrose 100 mls @ 200 mls/hr IVPB BID [facility] Last Admin: 05/30/20 09:37 Dose: 200 mls/hr Documented by: Fentanyl (Sublimaze Ivpb) 500 mcg in 100 mls @ 5 mls/hr IVPB TITR [facility]; Protocol Last Titration: 05/29/20 08:00 Dose: 25 mcg/hr, 5 mls/hr Documented by: Insulin Aspart (Novolog Vial Sliding Scale -) 1 vial SQ TID [facility]; Protocol Last Admin: 05/30/20 13:02 Dose: 2 units Documented by: Metoprolol Tartrate (Lopressor -) 25 mg PO BID [facility] Last Admin: 05/30/20 14:55 Dose: 25 mg Documented by: Pantoprazole Sodium (Protonix Iv) 40 mg IVPUSH DAILY [facility] Last Admin: 05/30/20 09:37 Dose: 40 mg Documented by: Potassium Phos/Sodium Phos (Phos-Nak Packet -) 2 packet PO BID [facility] Stop: 05/31/20 10:00 CBC, BMP 05/30/20 09:00 05/30/20 08:39 GENERAL: Extubated, awake HEAD: Normal with no signs of trauma. EYES: sclera anicteric, conjunctiva clear. EARS, NOSE, THROAT: dry mucous membranes. NECK: Normal range of motion, supple without lymphadenopathy, JVD, or masses. LUNGS: scattered rhonchi, no wheezes HEART: Regular rate and rhythm, normal S1 and S2 without murmur, rub or gallop. ABDOMEN: Soft, nontender, not distended, normoactive bowel sounds, no guarding, no rebound, no masses. No hepatomegaly or splenomegaly. MUSCULOSKELETAL: Normal range of motion at all joints. No bony deformities or tenderness. No CVA tenderness. UPPER EXTREMITIES: 2+ pulses, warm, well-perfused. No cyanosis. No clubbing. Cap refill <2 seconds. No peripheral edema. LOWER EXTREMITIES: LLE BKA NEUROLOGICAL: Awake, alert and oriented to name only SKIN: Warm, dry, normal turgor, no rashes or lesions noted. ASSESSMENT/PLAN: Acute Respiratory Failure due to Multi-lobar PNA R/O Aspiration Uncontrolled DM Right diabetic foot ulcer Chronic osteomyelitis of right foot Diabetic neuropathy Left BKA OA Iron deficiency anemia HLD HTN Charcot's joint -S/p extubation -Titrate FiO2 for SaO2 >92% -Chest PT -PT -ABX coverage per ID (Meropenem) -Strict I & O -Trend and replete lytes, keep Mg>2, K>4 -VTE prophylaxis -Glycemic control -Will restart home PO meds -Hydralazine IVP for hypertension -Appreciate cardiology recs -Speech and swallow -Did well with apple souse today Dispo: may transfer to the floor in am Sri Laazr ACNP [id number]
--- NOTE | 2020-05-30 09:25 | PN ---
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, Physician Chief Complaint: EXTUBATED AWAKE AND RESPONDING - Current Medication List Current Medications: Active Medications Chlorhexidine Gluconate (Hibiclens For Decolonization -) 1 applic TP HS [facility] Last Admin: 05/29/20 21:19 Dose: 1 applic Documented by: Collagenase (Santyl -) 1 applic TP DAILY [facility]; Protocol Last Admin: 05/29/20 09:25 Dose: 1 applic Documented by: Heparin Sodium (Porcine) (Heparin -) 5,000 unit SQ BID [facility] Last Admin: 05/29/20 21:18 Dose: 5,000 unit Documented by: Hydralazine HCl (Apresoline Injection -) 10 mg IVPUSH Q6H PRN PRN Reason: HYPERTENSION Last Admin: 05/30/20 06:18 Dose: 10 mg Documented by: Meropenem 1 gm/ Dextrose 100 mls @ 200 mls/hr IVPB BID [facility] Last Admin: 05/29/20 21:19 Dose: 200 mls/hr Documented by: Fentanyl (Sublimaze Ivpb) 500 mcg in 100 mls @ 5 mls/hr IVPB TITR [facility]; Protocol Last Titration: 05/29/20 08:00 Dose: 25 mcg/hr, 5 mls/hr Documented by: Insulin Aspart (Novolog Vial Sliding Scale -) 1 vial SQ TID [facility]; Protocol Last Admin: 05/30/20 06:26 Dose: 4 units Documented by: Mupirocin (Bactroban Ointment (For Decolonization) -) 1 applic NS BID [facility] Stop: 05/30/20 21:59 Last Admin: 05/29/20 21:19 Dose: 1 applic Documented by: Pantoprazole Sodium (Protonix Iv) 40 mg IVPUSH DAILY [facility] Last Admin: 05/29/20 09:24 Dose: 40 mg Documented by: - Objective Vital Signs: Vital Signs Temperature 99.8 F H 05/30/20 04:00 Pulse Rate 99 H 05/30/20 08:00 Respiratory Rate 22 H 05/30/20 08:00 Blood Pressure 140/77 05/30/20 08:00 O2 Sat by Pulse Oximetry (%) 98 05/30/20 08:00 Constitutional: Yes: Mild Distress Cardiovascular: Yes: Pulse Irregular Respiratory: Yes: On Nasal O2 Gastrointestinal: Yes: Soft Genitourinary: Yes: Lynn Present Musculoskeletal: Yes: Muscle Weakness Integumentary: Yes: Rash Neurological: Yes: Pre-Existing Deficit Labs: CBC, BMP 05/29/20 06:10 05/29/20 06:10 INR, PTT INR 1.58 (0.83-1.09) H 05/27/20 05:30 Fibrinogen 298.0 mg/dL (238-498) 05/26/20 05:16 Problem List - Problems (1) Diabetic foot ulcer Code(s): E11.621 - TYPE 2 DIABETES MELLITUS WITH FOOT ULCER; L97.509 - NON- PRESSURE CHRONIC ULCER OTH PRT UNSP FOOT W UNSP SEVERITY Qualifiers: Diabetes mellitus type: type 1 Laterality: right (2) Sepsis Code(s): A41.9 - SEPSIS, UNSPECIFIED ORGANISM (3) Septic shock Code(s): A41.9 - SEPSIS, UNSPECIFIED ORGANISM; R65.21 - SEVERE SEPSIS WITH SEPTIC SHOCK (4) Acute on chronic renal failure Code(s): N17.9 - ACUTE KIDNEY FAILURE, UNSPECIFIED; N18.9 - CHRONIC KIDNEY DISEASE, UNSPECIFIED Qualifiers: Acute renal failure type: unspecified Chronic kidney disease stage: unspecified stage Qualified Code(s): N17.9 - Acute kidney failure, unspecified; N18.9 - Chronic kidney disease, unspecified (5) Amyloid disease Code(s): E85.9 - AMYLOIDOSIS, UNSPECIFIED (6) Anemia Code(s): D64.9 - ANEMIA, UNSPECIFIED (7) Bacteremia Code(s): R78.81 - BACTEREMIA (8) CHF (congestive heart failure) Code(s): I50.9 - HEART FAILURE, UNSPECIFIED Qualifiers: Heart failure type: unspecified Heart failure chronicity: unspecified Qualified Code(s): I50.9 - Heart failure, unspecified Assessment/Plan IV ABX PER ID RESPIRATORY SUPPORT 02 NC OFF VENTILLATOR WILL NEED PULMONARY F/U CORRECT K+ AND F/U H/H. ANDRES IN PLACE NEPHROLOGY F/U FOR ARF WOUND CARE FOOT ULCER PODIATRY/VASC SURGERY EVAL
[2020-05-30] MEDS ORDERED: KCL 10 MEQ IVPB 10 MEQ/100 ML INFUS.BAG IVPB SCH (09:30)
[2020-05-30] MEDS ORDERED: DEXTROSE 5%-WATER 100 ML IVPB ONE ×2 (09:32→21:13)
[2020-05-30] MEDS ORDERED: MEROPENEM 1 GM VIAL (RESTRICTED TO ID) IVPB ONE ×2 (09:32→21:13)
[2020-05-30] MEDS: MUPIROCIN 2% TOPICAL OINTMENT FOR DECOLONIZATION NS SCH (09:36)
[2020-05-30] MEDS: MEROPENEM 1 GM in DEXTROSE 5%-WATER 100 ML IVPB SCH ×2 (09:37→22:34)
[2020-05-30] MEDS: PANTOPRAZOLE SODIUM 40 MG VIAL IVPUSH SCH (09:37)
[2020-05-30] MEDS: HEPARIN NA (PORCINE) 5,000 UNITS/ML 1ML VIAL SQ SCH ×2 (09:37→22:35)
[2020-05-30] MEDS: COLLAGENASE CLOSTRIDIUM HIST. 30 GRAMS TUBE TP SCH (09:38)
[2020-05-30 09:49] LABS: BASO % 0.5 % (0-2.0); EOS % 1.2 % (0-4.5); HEMATOCRIT 28.4 % (32.4-45.2); HEMOGLOBIN 9.1 GM/dL (10.7-15.3); LYMPH % 6.2 % (8-40); MCH 27.6 pg (25.7-33.7); MCHC 32.1 g/dl (32.0-36.0); MEAN CELL VOLUME 85.9 fl (80-96); MEAN PLT VOLUME 9.2 fl (7.5-11.1); MONO % 7.8 % (3.8-10.2); NEUT % 84.3 % (42.8-82.8); PLATELET COUNT 216 K/MM3 (134-434); RDW 19.5 % (11.6-15.6); WHITE BLOOD COUNT 9.8 K/mm3 (4.0-10.0)
[2020-05-30 10:11] LABS: ALBUMIN 2.1 g/dl (3.4-5.0); BILIRUBIN,TOTAL 0.6 mg/dL (0.2-1); BLOOD UREA NITROGEN 34.5 mg/dL (7-18); CALCIUM 9.1 mg/dL (8.5-10.1); CREATININE 1.3 mg/dL (0.55-1.3); MAGNESIUM 2.3 mg/dL (1.8-2.4); PHOSPHOROUS 2.1 mg/dL (2.5-4.9); POTASSIUM 3.3 mmol/L (3.5-5.1)
[2020-05-30 10:19] LABS: TOT PROT 7.8 g/dl (6.4-8.2)
--- NOTE | 2020-05-30 12:28 | PN ---
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, Physician Chief Complaint: Cardiology for Dr. Taylor History of Present Illness: Comfortable on NC with improved sensorium, hypertensive. - Current Medication List Current Medications: Active Medications Chlorhexidine Gluconate (Hibiclens For Decolonization -) 1 applic TP HS [facility] Last Admin: 05/29/20 21:19 Dose: 1 applic Documented by: Collagenase (Santyl -) 1 applic TP DAILY [facility]; Protocol Last Admin: 05/30/20 09:38 Dose: 1 applic Documented by: Heparin Sodium (Porcine) (Heparin -) 5,000 unit SQ BID [facility] Last Admin: 05/30/20 09:37 Dose: 5,000 unit Documented by: Hydralazine HCl (Apresoline Injection -) 10 mg IVPUSH Q6H PRN PRN Reason: HYPERTENSION Last Admin: 05/30/20 06:18 Dose: 10 mg Documented by: Meropenem 1 gm/ Dextrose 100 mls @ 200 mls/hr IVPB BID [facility] Last Admin: 05/30/20 09:37 Dose: 200 mls/hr Documented by: Fentanyl (Sublimaze Ivpb) 500 mcg in 100 mls @ 5 mls/hr IVPB TITR [facility]; Protocol Last Titration: 05/29/20 08:00 Dose: 25 mcg/hr, 5 mls/hr Documented by: Insulin Aspart (Novolog Vial Sliding Scale -) 1 vial SQ TID [facility]; Protocol Last Admin: 05/30/20 06:26 Dose: 4 units Documented by: Mupirocin (Bactroban Ointment (For Decolonization) -) 1 applic NS BID [facility] Stop: 05/30/20 21:59 Last Admin: 05/30/20 09:36 Dose: 1 applic Documented by: Pantoprazole Sodium (Protonix Iv) 40 mg IVPUSH DAILY [facility] Last Admin: 05/30/20 09:37 Dose: 40 mg Documented by: - Objective Vital Signs: Vital Signs Temperature 98.4 F 05/30/20 10:00 Pulse Rate 100 H 05/30/20 10:00 Respiratory Rate 16 05/30/20 10:00 Blood Pressure 164/84 05/30/20 10:00 O2 Sat by Pulse Oximetry (%) 97 05/30/20 10:00 Constitutional: Yes: No Distress, Calm Neck: Yes: Supple Cardiovascular: Yes: Regular Rate and Rhythm Respiratory: Yes: Regular, Diminished, On Nasal O2 Gastrointestinal: Yes: Normal Bowel Sounds, Soft, Abdomen, Obese Extremities: Yes: Amputation (Left BKA) Edema: No Labs: CBC, BMP 05/30/20 09:00 05/30/20 08:39 INR, PTT INR 1.58 (0.83-1.09) H 05/27/20 05:30 Fibrinogen 298.0 mg/dL (238-498) 05/26/20 05:16 - ....Imaging EKG: Report Reviewed (Tele: NSR) Assessment/Plan - Problems (1) Diabetic foot ulcer Code(s): E11.621 - TYPE 2 DIABETES MELLITUS WITH FOOT ULCER; L97.509 - NON- PRESSURE CHRONIC ULCER OTH PRT UNSP FOOT W UNSP SEVERITY Qualifiers: Diabetes mellitus type: type 1 Laterality: right (2) Sepsis Code(s): A41.9 - SEPSIS, UNSPECIFIED ORGANISM (3) Septic shock Code(s): A41.9 - SEPSIS, UNSPECIFIED ORGANISM; R65.21 - SEVERE SEPSIS WITH SEPTIC SHOCK (4) Acute on chronic renal failure Code(s): N17.9 - ACUTE KIDNEY FAILURE, UNSPECIFIED; N18.9 - CHRONIC KIDNEY DISEASE, UNSPECIFIED Qualifiers: Acute renal failure type: unspecified Chronic kidney disease stage: unspecified stage Qualified Code(s): N17.9 - Acute kidney failure, unspecified; N18.9 - Chronic kidney disease, unspecified (5) Amyloid disease Code(s): E85.9 - AMYLOIDOSIS, UNSPECIFIED (6) Anemia Code(s): D64.9 - ANEMIA, UNSPECIFIED (7) Bacteremia Code(s): R78.81 - BACTEREMIA (8) CHF (congestive heart failure) Code(s): I50.9 - HEART FAILURE, UNSPECIFIED Qualifiers: Heart failure type: unspecified Heart failure chronicity: unspecified Qualified Code(s): I50.9 - Heart failure, unspecified (9) Elevated liver enzymes Code(s): R74.8 - ABNORMAL LEVELS OF OTHER SERUM ENZYMES (10) Pleural effusion Code(s): J90 - PLEURAL EFFUSION, NOT ELSEWHERE CLASSIFIED (11) Right lower lobe pneumonia Code(s): J18.9 - PNEUMONIA, UNSPECIFIED ORGANISM Qualifiers: Pneumonia type: due to unspecified organism Qualified Code(s): J18.9 - Pneumonia, unspecified organism (12) Troponin I above reference range Code(s): R79.89 - OTHER SPECIFIED ABNORMAL FINDINGS OF BLOOD CHEMISTRY Assessment/Plan 70 yr old black woman with PMHx low-normal systolic, diastolic CHF, ?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 foot, Chronic osteomyelitis of right foot, Diabetic neuropathy, Left leg below knee amputation, renal dysfunction, OA, Iron deficiency anemia, HLD, HTN, ESBL resistance, who presents to the ED from [facility] for evaluation of hypoxia and AMS requiring intubation after recent admission for CHF. Suspected multilobar pnemonia and sepsis. Demand ischemia, trops downtrending, abnl LFTs due to shock liver downtrending. 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 Amyloidosis w/u at [facility] Heart Failure Clinic pending.
--- NOTE | 2020-05-30 13:07 | PN ---
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, Physician History of Present Illness: extubated comfortable on nasal canula - Current Medication List Current Medications: Active Medications Chlorhexidine Gluconate (Hibiclens For Decolonization -) 1 applic TP HS [facility] Last Admin: 05/29/20 21:19 Dose: 1 applic Documented by: Collagenase (Santyl -) 1 applic TP DAILY [facility]; Protocol Last Admin: 05/30/20 09:38 Dose: 1 applic Documented by: Heparin Sodium (Porcine) (Heparin -) 5,000 unit SQ BID [facility] Last Admin: 05/30/20 09:37 Dose: 5,000 unit Documented by: Hydralazine HCl (Apresoline Injection -) 10 mg IVPUSH Q6H PRN PRN Reason: HYPERTENSION Last Admin: 05/30/20 06:18 Dose: 10 mg Documented by: Meropenem 1 gm/ Dextrose 100 mls @ 200 mls/hr IVPB BID [facility] Last Admin: 05/30/20 09:37 Dose: 200 mls/hr Documented by: Fentanyl (Sublimaze Ivpb) 500 mcg in 100 mls @ 5 mls/hr IVPB TITR [facility]; Protocol Last Titration: 05/29/20 08:00 Dose: 25 mcg/hr, 5 mls/hr Documented by: Insulin Aspart (Novolog Vial Sliding Scale -) 1 vial SQ TID [facility]; Protocol Last Admin: 05/30/20 13:02 Dose: 2 units Documented by: Mupirocin (Bactroban Ointment (For Decolonization) -) 1 applic NS BID [facility] Stop: 05/30/20 21:59 Last Admin: 05/30/20 09:36 Dose: 1 applic Documented by: Pantoprazole Sodium (Protonix Iv) 40 mg IVPUSH DAILY [facility] Last Admin: 05/30/20 09:37 Dose: 40 mg Documented by: - Objective Vital Signs: Vital Signs Temperature 98.4 F 05/30/20 10:00 Pulse Rate 98 H 05/30/20 12:00 Respiratory Rate 17 05/30/20 12:00 Blood Pressure 146/92 05/30/20 12:00 O2 Sat by Pulse Oximetry (%) 98 05/30/20 12:00 Constitutional: Yes: No Distress, Calm Neck: Yes: Supple, Trachea Midline Cardiovascular: Yes: S1, S2 Respiratory: Yes: On Nasal O2, Poor Air Entry Gastrointestinal: Yes: Normal Bowel Sounds Musculoskeletal: Yes: WNL Extremities: Yes: WNL Neurological: Yes: Other Labs: CBC, BMP 05/30/20 09:00 05/30/20 08:39 INR, PTT INR 1.58 (0.83-1.09) H 05/27/20 05:30 Fibrinogen 298.0 mg/dL (238-498) 05/26/20 05:16 - ....Imaging Chest X-ray: Report Reviewed, Image Reviewed Assessment/Plan Acute Respiratory Failure due to Multi-lobar PNA R/O Aspiration Uncontrolled DM Right diabetic foot ulcer Chronic osteomyelitis of right foot Diabetic neuropathy Left BKA OA Iron deficiency anemia HLD HTN Charcot's joint gm negative bacteremia plan meropenam asp precautions repeat cx negative so far close watch nephro on case icu mgmt cc 37 min
--- NOTE | 2020-05-30 14:05 | PN ---
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 (short form) - Note 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: Problems 1. Acute respiratory failure secondary to suspected pneumonia 2. Sepsis from UTI vs. PNA 3. Lactic acidosis in setting of sepsis 4. Acute on chronic renal insufficiency secondary to sepsis/renal hypoprofusion 5. CKD baseline cr 1.4 6. DM2 6. Hx of CHF/Pleural effusions 7. Elevated troponins 8. Hyperkalemia 9. Chronic osteomyelitis Active Medications Chlorhexidine Gluconate (Hibiclens For Decolonization -) 1 applic TP HS [facility] Last Admin: 05/29/20 21:19 Dose: 1 applic Documented by: Collagenase (Santyl -) 1 applic TP DAILY [facility]; Protocol Last Admin: 05/30/20 09:38 Dose: 1 applic Documented by: Heparin Sodium (Porcine) (Heparin -) 5,000 unit SQ BID [facility] Last Admin: 05/30/20 09:37 Dose: 5,000 unit Documented by: Hydralazine HCl (Apresoline Injection -) 10 mg IVPUSH Q6H PRN PRN Reason: HYPERTENSION Last Admin: 05/30/20 06:18 Dose: 10 mg Documented by: Meropenem 1 gm/ Dextrose 100 mls @ 200 mls/hr IVPB BID [facility] Last Admin: 05/30/20 09:37 Dose: 200 mls/hr Documented by: Fentanyl (Sublimaze Ivpb) 500 mcg in 100 mls @ 5 mls/hr IVPB TITR [facility]; Protocol Last Titration: 05/29/20 08:00 Dose: 25 mcg/hr, 5 mls/hr Documented by: Insulin Aspart (Novolog Vial Sliding Scale -) 1 vial SQ TID [facility]; Protocol Last Admin: 05/30/20 13:02 Dose: 2 units Documented by: Mupirocin (Bactroban Ointment (For Decolonization) -) 1 applic NS BID [facility] Stop: 05/30/20 21:59 Last Admin: 05/30/20 09:36 Dose: 1 applic Documented by: Pantoprazole Sodium (Protonix Iv) 40 mg IVPUSH DAILY [facility] Last Admin: 05/30/20 09:37 Dose: 40 mg Documented by: Last Vital Signs Temp Pulse Resp BP Pulse Ox 98.4 F 98 H 17 146/92 98 05/30/20 10:00 05/30/20 12:00 05/30/20 12:00 05/30/20 12:00 05/30/20 12:00 CBC, BMP 05/30/20 09:00 05/30/20 08:39 CBC, BMP 05/29/20 06:10 05/29/20 06:10 IMP- Hypokalemia Hypernatremia TONIA on CKD renal function improving HTN poor control Plan- conntinue to monitor renal function and urine output
[2020-05-30] MEDS: METOPROLOL TARTRATE 25 MG TABLET (FP) PO SCH ×2 (14:55→22:35)
[2020-05-30] MEDS: CHLORHEXIDINE GLUCONATE 4% CLEANSER FOR DECOLONIZATION TP SCH (22:35)
[2020-05-30] MEDS: NAPH,MB-DB/K PH,MBDB POWDER PACKET PO SCH (22:35)
[2020-05-30] MEDS ORDERED: LOSARTAN POTASSIUM 25 MG TABLET PO ONE (22:56)
[2020-05-31] MEDS: hydrALAZINE HCL 20 MG/ML VIAL IVPUSH PRN (00:08)
[2020-05-31] MEDS: INSULIN SLIDING SCALE (NOVOLOG) 1 VIAL SQ SCH ×3 (05:20→22:05)
[2020-05-31 07:13] LABS: BASO % 0.5 % (0-2.0); EOS % 1.7 % (0-4.5); HEMATOCRIT 29.9 % (32.4-45.2); HEMOGLOBIN 9.4 GM/dL (10.7-15.3); MCHC 31.6 g/dl (32.0-36.0); MEAN CELL VOLUME 85.7 fl (80-96); MEAN PLT VOLUME 9.3 fl (7.5-11.1); MONO % 7.8 % (3.8-10.2); PLATELET COUNT 241 K/MM3 (134-434); RBC 3.49 M/mm3 (3.60-5.2); RDW 19.8 % (11.6-15.6); WHITE BLOOD COUNT 10.4 K/mm3 (4.0-10.0)
[2020-05-31 07:43] LABS: ALBUMIN 2.3 g/dl (3.4-5.0); BILIRUBIN,TOTAL 0.8 mg/dL (0.2-1); CALCIUM 9.4 mg/dL (8.5-10.1); CREATININE 1.2 mg/dL (0.55-1.3); MAGNESIUM 2.2 mg/dL (1.8-2.4); PHOSPHOROUS 2.6 mg/dL (2.5-4.9); POTASSIUM 3.5 mmol/L (3.5-5.1)
--- NOTE | 2020-05-31 08:28 | PN ---
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, Physician Chief Complaint: AWAKE MORE ALERT TODAY AFTER EXTUBATION YESTERDAY SWALLOW EVAL IN PROGRESS WOTH MBS PENDING - Current Medication List Current Medications: Active Medications Chlorhexidine Gluconate (Hibiclens For Decolonization -) 1 applic TP HS [facility] Last Admin: 05/30/20 22:35 Dose: 1 applic Documented by: Collagenase (Santyl -) 1 applic TP DAILY [facility]; Protocol Last Admin: 05/30/20 09:38 Dose: 1 applic Documented by: Heparin Sodium (Porcine) (Heparin -) 5,000 unit SQ BID [facility] Last Admin: 05/30/20 22:35 Dose: 5,000 unit Documented by: Hydralazine HCl (Apresoline Injection -) 10 mg IVPUSH Q6H PRN PRN Reason: HYPERTENSION Last Admin: 05/31/20 00:08 Dose: 10 mg Documented by: Meropenem 1 gm/ Dextrose 100 mls @ 200 mls/hr IVPB BID [facility] Last Admin: 05/30/20 22:34 Dose: 200 mls/hr Documented by: Fentanyl (Sublimaze Ivpb) 500 mcg in 100 mls @ 5 mls/hr IVPB TITR [facility]; Protocol Last Titration: 05/29/20 08:00 Dose: 25 mcg/hr, 5 mls/hr Documented by: Insulin Aspart (Novolog Vial Sliding Scale -) 1 vial SQ TID [facility]; Protocol Last Admin: 05/31/20 05:20 Dose: 2 units Documented by: Losartan Potassium (Cozaar -) 25 mg PO DAILY [facility] Metoprolol Tartrate (Lopressor -) 25 mg PO BID [facility] Last Admin: 05/30/20 22:35 Dose: 25 mg Documented by: Pantoprazole Sodium (Protonix Iv) 40 mg IVPUSH DAILY [facility] Last Admin: 05/30/20 09:37 Dose: 40 mg Documented by: Potassium Phos/Sodium Phos (Phos-Nak Packet -) 2 packet PO BID [facility] Stop: 05/31/20 10:00 Last Admin: 05/30/20 22:35 Dose: 2 packet Documented by: - Objective Vital Signs: Vital Signs Temperature 98.1 F 05/30/20 20:00 Pulse Rate 86 05/31/20 06:00 Respiratory Rate 16 05/31/20 06:00 Blood Pressure 174/94 H 05/31/20 06:00 O2 Sat by Pulse Oximetry (%) 94 L 08/24/20 06:00 Constitutional: Yes: Mild Distress Cardiovascular: Yes: Pulse Irregular Respiratory: Yes: Diminished, On Nasal O2 Gastrointestinal: Yes: Soft Genitourinary: Yes: Lynn Present Extremities: Yes: Amputation (LEFT LEG), Deformity Wound/Incision: Yes: Dressing Dry and Intact Neurological: Yes: Loss of Sensation, Numbness, Paresthesia, Pre-Existing Deficit Labs: CBC, BMP 05/31/20 05:45 05/31/20 05:45 INR, PTT INR 1.58 (0.83-1.09) H 05/27/20 05:30 Fibrinogen 298.0 mg/dL (238-498) 05/26/20 05:16 Problem List - Problems (1) Diabetic foot ulcer Code(s): E11.621 - TYPE 2 DIABETES MELLITUS WITH FOOT ULCER; L97.509 - NON- PRESSURE CHRONIC ULCER OTH PRT UNSP FOOT W UNSP SEVERITY Qualifiers: Diabetes mellitus type: type 1 Laterality: right (2) Sepsis Code(s): A41.9 - SEPSIS, UNSPECIFIED ORGANISM (3) Septic shock Code(s): A41.9 - SEPSIS, UNSPECIFIED ORGANISM; R65.21 - SEVERE SEPSIS WITH SEPTIC SHOCK (4) Acute on chronic renal failure Code(s): N17.9 - ACUTE KIDNEY FAILURE, UNSPECIFIED; N18.9 - CHRONIC KIDNEY DISEASE, UNSPECIFIED Qualifiers: Acute renal failure type: unspecified Chronic kidney disease stage: unspecified stage Qualified Code(s): N17.9 - Acute kidney failure, unspecified; N18.9 - Chronic kidney disease, unspecified (5) Amyloid disease Code(s): E85.9 - AMYLOIDOSIS, UNSPECIFIED (6) Anemia Code(s): D64.9 - ANEMIA, UNSPECIFIED (7) Bacteremia Code(s): R78.81 - BACTEREMIA (8) CHF (congestive heart failure) Code(s): I50.9 - HEART FAILURE, UNSPECIFIED Qualifiers: Heart failure type: unspecified Heart failure chronicity: unspecified Qualified Code(s): I50.9 - Heart failure, unspecified (9) Amputated left leg Code(s): S88.912A - COMPLETE TRAUMATIC AMPUTATION OF L LOW LEG, LEVEL UNSP, INIT Assessment/Plan RESPIRATORY SUPPORT, 02NC,, NEBS, IV ABX ID F/U ON DURATION OF ABX APPRECIATED SWALLOW EVAL MODIFIED BARIUM PENDING PT EVAL SNF WHEN THERAPY COMPLETED TRANSFER TO [facility]
[2020-05-31] MEDS ORDERED: LOSARTAN POTASSIUM 25 MG TABLET PO SCH (10:00)
--- NOTE | 2020-05-31 10:13 | PN ---
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 foot, Chronic osteomyelitis of right foot, Diabetic neuropathy, Left leg below knee amputation, OA, Iron deficiency anemia, HLD, HTN, Charcot's joint, ESBL re sistance and who presents to the ED from [facility] for evaluation of hypoxia and AMS. The patient was previously discharged on 05/23 after having been treated for G(-) Bacteremia. History Source: Patient - Current Medication List Current Medications: Active Medications Chlorhexidine Gluconate (Hibiclens For Decolonization -) 1 applic TP HS [facility] Last Admin: 05/30/20 22:35 Dose: 1 applic Documented by: Collagenase (Santyl -) 1 applic TP DAILY [facility]; Protocol Last Admin: 05/30/20 09:38 Dose: 1 applic Documented by: Heparin Sodium (Porcine) (Heparin -) 5,000 unit SQ BID [facility] Last Admin: 05/30/20 22:35 Dose: 5,000 unit Documented by: Hydralazine HCl (Apresoline Injection -) 10 mg IVPUSH Q6H PRN PRN Reason: HYPERTENSION Last Admin: 05/31/20 00:08 Dose: 10 mg Documented by: Meropenem 1 gm/ Dextrose 100 mls @ 200 mls/hr IVPB BID [facility] Last Admin: 05/30/20 22:34 Dose: 200 mls/hr Documented by: Fentanyl (Sublimaze Ivpb) 500 mcg in 100 mls @ 5 mls/hr IVPB TITR [facility]; Protocol Last Titration: 05/29/20 08:00 Dose: 25 mcg/hr, 5 mls/hr Documented by: Insulin Aspart (Novolog Vial Sliding Scale -) 1 vial SQ TID [facility]; Protocol Last Admin: 05/31/20 05:20 Dose: 2 units Documented by: Losartan Potassium (Cozaar -) 25 mg PO DAILY [facility] Metoprolol Tartrate (Lopressor -) 25 mg PO BID [facility] Last Admin: 05/30/20 22:35 Dose: 25 mg Documented by: Pantoprazole Sodium (Protonix Iv) 40 mg IVPUSH DAILY [facility] Last Admin: 05/30/20 09:37 Dose: 40 mg Documented by: - Objective Vital Signs: Vital Signs Temperature 98.1 F 05/30/20 20:00 Pulse Rate 86 05/31/20 06:00 Respiratory Rate 16 05/31/20 06:00 Blood Pressure 174/94 H 05/31/20 06:00 O2 Sat by Pulse Oximetry (%) 94 L 05/31/20 06:00 Eyes: Yes: WNL, Conjunctiva Clear, EOM Intact HENT: Yes: WNL, Atraumatic, Normocephalic Neck: Yes: WNL, Supple, Trachea Midline Cardiovascular: Yes: WNL, Regular Rate and Rhythm Respiratory: Yes: CTA Bilaterally, Diminished Gastrointestinal: Yes: WNL, Normal Bowel Sounds Genitourinary: Yes: WNL Musculoskeletal: Yes: WNL Extremities: Yes: Amputation Edema: No Integumentary: Yes: WNL Labs: CBC, BMP 05/31/20 05:45 05/31/20 05:45 INR, PTT INR 1.58 (0.83-1.09) H 05/27/20 05:30 Fibrinogen 298.0 mg/dL (238-498) 05/26/20 05:16 Problem List - Problems (1) Diabetic foot ulcer Code(s): E11.621 - TYPE 2 DIABETES MELLITUS WITH FOOT ULCER; L97.509 - NON- PRESSURE CHRONIC ULCER OTH PRT UNSP FOOT W UNSP SEVERITY Qualifiers: Diabetes mellitus type: type 1 Laterality: right (2) Sepsis Code(s): A41.9 - SEPSIS, UNSPECIFIED ORGANISM (3) Septic shock Code(s): A41.9 - SEPSIS, UNSPECIFIED ORGANISM; R65.21 - SEVERE SEPSIS WITH SEPTIC SHOCK (4) Acute on chronic renal failure Code(s): N17.9 - ACUTE KIDNEY FAILURE, UNSPECIFIED; N18.9 - CHRONIC KIDNEY DISEASE, UNSPECIFIED Qualifiers: Acute renal failure type: unspecified Chronic kidney disease stage: unspecified stage Qualified Code(s): N17.9 - Acute kidney failure, unspecified; N18.9 - Chronic kidney disease, unspecified (5) Amyloid disease Code(s): E85.9 - AMYLOIDOSIS, UNSPECIFIED (6) Anemia Code(s): D64.9 - ANEMIA, UNSPECIFIED (7) Bacteremia Code(s): R78.81 - BACTEREMIA (8) CHF (congestive heart failure) Code(s): I50.9 - HEART FAILURE, UNSPECIFIED Qualifiers: Heart failure type: unspecified Heart failure chronicity: unspecified Qualified Code(s): I50.9 - Heart failure, unspecified (9) Elevated liver enzymes Code(s): R74.8 - ABNORMAL LEVELS OF OTHER SERUM ENZYMES (10) Pleural effusion Code(s): J90 - PLEURAL EFFUSION, NOT ELSEWHERE CLASSIFIED (11) Right lower lobe pneumonia Code(s): J18.9 - PNEUMONIA, UNSPECIFIED ORGANISM Qualifiers: Pneumonia type: due to unspecified organism Qualified Code(s): J18.9 - Pneumonia, unspecified organism (12) Troponin I above reference range Code(s): R79.89 - OTHER SPECIFIED ABNORMAL FINDINGS OF BLOOD CHEMISTRY Assessment/Plan 70 yr old black woman with PMHx low-normal systolic, diastolic CHF, ?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 foot, Chronic osteomyelitis of right foot, Diabetic neuropathy, Left leg below knee amputation, renal dysfunction, OA, Iron deficiency anemia, HLD, HTN, ESBL resistance, who presents to the ED from [facility] for evaluation of hypoxia and AMS requiring intubation after recent admission for CH F. Suspected multilobar pnemonia and sepsis. Demand ischemia, trops downtrending, abnl LFTs due to shock liver downtrending. Extubated Plan: HTN. - restart PO Meds currently hemodynamicaly stable (off pressors);on hydralazine 10 IV q6 prn, resume metoprolol 25 bid and losartan 25 qd once renal fxn stable Leukocytosis 24-->9.8; antibiotics course per ID for Citrobacter GI and DVT prophylaxis sc heparin, F/u Hb, stool quaiac (Hb 10.6-->9.1) Oral diuresis with monitor diuretic response, renal fxn and electrolytes; F/u renal w/u with continuous improvement black belt. Amyloidosis w/u at [facility] pending. CC time spent 36 min
[2020-05-31] MEDS: COLLAGENASE CLOSTRIDIUM HIST. 30 GRAMS TUBE TP SCH (11:00)
[2020-05-31] MEDS ORDERED: MEROPENEM 1 GM VIAL (RESTRICTED TO ID) IVPB ONE ×2 (12:00→21:21)
[2020-05-31] MEDS ORDERED: DEXTROSE 5%-WATER 100 ML IVPB ONE ×2 (12:00→21:21)
[2020-05-31] MEDS: MEROPENEM 1 GM in DEXTROSE 5%-WATER 100 ML IVPB SCH ×2 (12:05→21:36)
[2020-05-31] MEDS: METOPROLOL TARTRATE 25 MG TABLET (FP) PO SCH ×2 (12:05→21:35)
[2020-05-31] MEDS: PANTOPRAZOLE SODIUM 40 MG VIAL IVPUSH SCH (12:05)
[2020-05-31] MEDS: HEPARIN NA (PORCINE) 5,000 UNITS/ML 1ML VIAL SQ SCH ×2 (12:05→21:36)
[2020-05-31] MEDS: NAPH,MB-DB/K PH,MBDB POWDER PACKET PO SCH (12:06)
--- NOTE | 2020-05-31 13:49 | CONSULT ---
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 foot, Chronic osteomyelitis of right foot, Diabetic neuropathy, Left leg below knee amputation, renal dysfunction, OA, Iron deficiency anemia, HLD, HTN, ESBL resistance, who presents to the ED 05/25 from [facility] for evaluation of hypoxia and AMS requiring intubation after recent admission for CHF. Suspected multilobar pnemonia and sepsis. Demand ischemia, trops downtrending, abnl LFTs due to shock liver downtrending. Extubated Pt was extubated on 05/29. Acute Respiratory Failure due to Multi-lobar PNA R/O Aspiration Uncontrolled DM Right diabetic foot ulcer Chronic osteomyelitis of right foot Diabetic neuropathy Left BKA OA Iron deficiency anemia HLD HTN Charcot's joint Received Nepro while intubated This is my first consult with this pt. Baseline cognition? - Past Medical History Cardiovascular: Yes: CHF, HTN, Hyperlipdemia ...: No Endocrine: Yes: Diabetes Mellitus (DM II) - Smoking History Smoking history: Never smoked Have you smoked in the past 12 months: No - Alcohol/Substance Use Hx Alcohol Use: No History of Substance Use: reports: None - Social History ADL: Support Services History of Recent Travel: No ([place]) History - Admission Reason For Visit: SEPSIS AMS PNEUMONIA - Diagnostics X-ray: Report Reviewed CT Scan: Report Reviewed - General Mental Status: Forgetful, Vague (very slow to respond, flat affect, not oriented to hospital, impaired speechy initiation, low volume), Confused, Flat Affect Attention: Mild Impairment, Moderate Impairment (fidgeting with her blanket) Ability to Follow Directions: Fair (slow) Head/Neck Control: Fair - Hearing Hearing: Normal Hearing Aide: No With Patient: No Speech Evaluation - Communication Primary Language: FRISIAN Communication: Yes: Simple Responses Oral Expression Ability: Yes: Moderate Impairment (slow to respond. Low volume) - Speech Production Intelligibility: Yes: Moderately Impaired - Speech Characteristics Voice Loudness: Moderately Soft/Quiet Voice Pitch: Yes: Normal Voice Phonatory-based Quality: Yes: Normal Speech Clarity: < 75% Nasal Resonance: Normal Articulation: Yes: Precise - Language/Auditory Comprehension Observation: Able to respond to yes/no queries: Yes (slow to respond), Benefits from Slow Speech: Yes, Benefits from Repetiton: Yes - Language/Verbal Expression Functional Communication Status: Yes: Moderately Impaired - Swallow Evaluation/Bedside Assessment Current Nutritional Intake: NPO Oral Secretions: Yes: WFL, R/O Candidiasis (white patches on tongue? mouth care>?) Dentition: Yes: Adequate Facial Symmetry at Rest: Facial Droop Left (slight?) Lingual Movement: Symmetric Lingual Speed of Movement: Reduced Lingual Movement Strgth Against Opposition: Reduced Laryngeal Movement: Able to Palpate, Reduced Excursion, Labored,delay initiation Rate of Intake: Slow/Holding Bolus Size: Small Labial Seal: WFL Oral Prep Time: Increased A-P Transit: Impaired Timing of Swallow: Delayed Coughing/Throat Clear: Yes (thin liquid) Recommendations - Speech Evaluation, Impression/Plan Impression: This is my first consult with this pt. Baseline cognition? distractible, slow to respond, not oriented, low volume with impaired speech initiation\. Delayed swallow, with cough response on thin liquids. - Disposition Discharge to: [facility] - Dysphagia Impressions/Plan Swallowing Skills: Impaired Dysphagia Impressions: Mild Impairment, Suspect Aspiration *Silent aspiration: cannot be R/O at bedside Dysphagia Treatment Plan: Small Bites, Chin Tuck/Down, Trial Feedings, Facilitative Feeding, Safe Rate, 1/2 tsp. at a time, Elevate HOB during feed Recommendations: Modified Barium Swallow (if cough, congestion and to upgrade diet safely), Other (aspiration precautions) - Recommendations Diet Consistency: Dysphagia Pureed Medication Administration: Crushed with applesauce Liquids: [place] Thick Supplement: Magic Cup, Ensure Pudding, Other (2 james hn)
[2020-05-31] MEDS ORDERED: NYSTATIN 500,000 UNITS/5 ML SUSPENSION PO ONE (14:00)
--- NOTE | 2020-05-31 14:08 | PN ---
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, Physician History of Present Illness: looks stable post extubation weak - Current Medication List Current Medications: Active Medications Chlorhexidine Gluconate (Hibiclens For Decolonization -) 1 applic TP HS [facility] Last Admin: 05/30/20 22:35 Dose: 1 applic Documented by: Collagenase (Santyl -) 1 applic TP DAILY [facility]; Protocol Last Admin: 05/30/20 09:38 Dose: 1 applic Documented by: Heparin Sodium (Porcine) (Heparin -) 5,000 unit SQ BID [facility] Last Admin: 05/31/20 12:05 Dose: 5,000 unit Documented by: Hydralazine HCl (Apresoline Injection -) 10 mg IVPUSH Q6H PRN PRN Reason: HYPERTENSION Last Admin: 05/31/20 00:08 Dose: 10 mg Documented by: Meropenem 1 gm/ Dextrose 100 mls @ 200 mls/hr IVPB BID [facility] Last Admin: 05/31/20 12:05 Dose: 200 mls/hr Documented by: Fentanyl (Sublimaze Ivpb) 500 mcg in 100 mls @ 5 mls/hr IVPB TITR [facility]; Protocol Last Titration: 05/29/20 08:00 Dose: 25 mcg/hr, 5 mls/hr Documented by: Insulin Aspart (Novolog Vial Sliding Scale -) 1 vial SQ TID [facility]; Protocol Last Admin: 05/31/20 13:46 Dose: 2 units Documented by: Losartan Potassium (Cozaar -) 25 mg PO DAILY [facility] Last Admin: 05/31/20 12:05 Dose: 25 mg Documented by: Metoprolol Tartrate (Lopressor -) 25 mg PO BID [facility] Last Admin: 05/31/20 12:05 Dose: 25 mg Documented by: Pantoprazole Sodium (Protonix Iv) 40 mg IVPUSH DAILY [facility] Last Admin: 05/31/20 12:05 Dose: 40 mg Documented by: - Objective Vital Signs: Vital Signs Temperature 97.8 F 05/31/20 12:00 Pulse Rate 88 05/31/20 12:00 Respiratory Rate 16 05/31/20 12:00 Blood Pressure 188/99 H 05/31/20 12:00 O2 Sat by Pulse Oximetry (%) 94 L 05/31/20 10:00 Constitutional: Yes: No Distress, Calm Cardiovascular: Yes: S1, S2 Respiratory: Yes: Regular, On Nasal O2, Poor Air Entry Musculoskeletal: Yes: WNL Extremities: Yes: WNL Neurological: Yes: Alert, Oriented Psychiatric: Yes: Alert, Oriented Labs: CBC, BMP 05/31/20 05:45 05/31/20 05:45 INR, PTT INR 1.58 (0.83-1.09) H 05/27/20 05:30 Fibrinogen 298.0 mg/dL (238-498) 05/26/20 05:16 Assessment/Plan Acute Respiratory Failure due to Multi-lobar PNA R/O Aspiration Uncontrolled DM Right diabetic foot ulcer Chronic osteomyelitis of right foot Diabetic neuropathy Left BKA OA Iron deficiency anemia HLD HTN Charcot's joint gm negative bacteremia plan meropenam asp precautions repeat cx negative so far close watch nephro on case icu mgmt cc 37 min
--- NOTE | 2020-05-31 15:34 | PN ---
Teaching Attending Note Name of Resident: Radha Ellison ATTENDING PHYSICIAN STATEMENT I saw and evaluated the patient. I reviewed the resident's note and discussed the case with the resident. I agree with the resident's findings and plan as documented. SUBJECTIVE: Pt seen and examined in the ICU. Somnolent but arousable. Saturating well on nasal cannula. OBJECTIVE: Vital Signs Period Temp Pulse Resp BP Sys/Dobson Pulse Ox Last 24 Hr 97.8 F-98.7 F 75-89 8-24 150-188/82-108 94-99 Intake & Output 05/28/20 05/29/20 05/30/20 05/31/20 23:59 23:59 23:59 23:59 Intake Total 2891 1627 330 172 Output Total 2300 2400 2050 600 Balance 591 -773 -1720 -828 Weight 80.9 kg 81.3 kg 78.2 kg 78.3 kg Gen: NAD at rest Heart: RRR Lung: decreased breath sounds at the bases Abd: soft, nontender Ext: + edema, left BKA CBC, BMP 05/31/20 05:45 05/31/20 05:45 Active Medications Chlorhexidine Gluconate (Hibiclens For Decolonization -) 1 applic TP HS [facility] Last Admin: 05/30/20 22:35 Dose: 1 applic Documented by: Collagenase (Santyl -) 1 applic TP DAILY [facility]; Protocol Last Admin: 05/30/20 09:38 Dose: 1 applic Documented by: Heparin Sodium (Porcine) (Heparin -) 5,000 unit SQ BID [facility] Last Admin: 05/31/20 12:05 Dose: 5,000 unit Documented by: Hydralazine HCl (Apresoline Injection -) 10 mg IVPUSH Q6H PRN PRN Reason: HYPERTENSION Last Admin: 05/31/20 00:08 Dose: 10 mg Documented by: Meropenem 1 gm/ Dextrose 100 mls @ 200 mls/hr IVPB BID [facility] Last Admin: 05/31/20 12:05 Dose: 200 mls/hr Documented by: Fentanyl (Sublimaze Ivpb) 500 mcg in 100 mls @ 5 mls/hr IVPB TITR [facility]; Protocol Last Titration: 05/29/20 08:00 Dose: 25 mcg/hr, 5 mls/hr Documented by: Insulin Aspart (Novolog Vial Sliding Scale -) 1 vial SQ TID [facility]; Protocol Last Admin: 05/31/20 13:46 Dose: 2 units Documented by: Losartan Potassium (Cozaar -) 25 mg PO DAILY [facility] Last Admin: 05/31/20 12:05 Dose: 25 mg Documented by: Metoprolol Tartrate (Lopressor -) 25 mg PO BID [facility] Last Admin: 05/31/20 12:05 Dose: 25 mg Documented by: Pantoprazole Sodium (Protonix Iv) 40 mg IVPUSH DAILY [facility] Last Admin: 05/31/20 12:05 Dose: 40 mg Documented by: ASSESSMENT AND PLAN: Acute Hypoxic Respiratory Failure Pneumonia UTI LV Diastolic Dysfunction Suspected Amyloidosis +Troponins likely Demand Ischemia HTN DM Hyperlipidemia Anemia - continue antibiotics per ID - O2 to keep SpO2 >90% - BP control - aspiration precautions - PO as tolerated - DVT prophylaxis - can monitor on floor
--- NOTE | 2020-05-31 15:43 | PN ---
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 (short form) - Note 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: patient seen and examined at bedside; patient denies any complaint has been saturating well onn NC gen: somnolent yet arousable; AOx3 lungs: distant breath sounds at the bases CV: rrr s1 s2; no MRG abd: softt/ nt/nd +BS patient is stable to be monitored on the med-surg floor
--- NOTE | 2020-05-31 17:20 | PN ---
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, Physician Chief Complaint: Sepsis History of Present Illness: Seen and examined at the bedside awake and alert on NC O2 drowsy making urine denies any sob, cp, abd pain - Current Medication List Current Medications: Active Medications Chlorhexidine Gluconate (Hibiclens For Decolonization -) 1 applic TP HS [facility] Last Admin: 05/30/20 22:35 Dose: 1 applic Documented by: Collagenase (Santyl -) 1 applic TP DAILY [facility]; Protocol Last Admin: 05/30/20 09:38 Dose: 1 applic Documented by: Heparin Sodium (Porcine) (Heparin -) 5,000 unit SQ BID [facility] Last Admin: 05/31/20 12:05 Dose: 5,000 unit Documented by: Hydralazine HCl (Apresoline Injection -) 10 mg IVPUSH Q6H PRN PRN Reason: HYPERTENSION Last Admin: 05/31/20 00:08 Dose: 10 mg Documented by: Meropenem 1 gm/ Dextrose 100 mls @ 200 mls/hr IVPB BID [facility] Last Admin: 05/31/20 12:05 Dose: 200 mls/hr Documented by: Fentanyl (Sublimaze Ivpb) 500 mcg in 100 mls @ 5 mls/hr IVPB TITR [facility]; Protocol Last Titration: 05/29/20 08:00 Dose: 25 mcg/hr, 5 mls/hr Documented by: Insulin Aspart (Novolog Vial Sliding Scale -) 1 vial SQ TID [facility]; Protocol Last Admin: 05/31/20 13:46 Dose: 2 units Documented by: Losartan Potassium (Cozaar -) 25 mg PO DAILY [facility] Last Admin: 05/31/20 12:05 Dose: 25 mg Documented by: Metoprolol Tartrate (Lopressor -) 25 mg PO BID [facility] Last Admin: 05/31/20 12:05 Dose: 25 mg Documented by: Pantoprazole Sodium (Protonix Iv) 40 mg IVPUSH DAILY [facility] Last Admin: 05/31/20 12:05 Dose: 40 mg Documented by: - Objective Vital Signs: Vital Signs Temperature 98 F 05/31/20 14:00 Pulse Rate 78 05/31/20 14:00 Respiratory Rate 18 05/31/20 14:00 Blood Pressure 175/99 H 05/31/20 14:00 O2 Sat by Pulse Oximetry (%) 94 L 05/31/20 10:00 Constitutional: Yes: No Distress HENT: Yes: Atraumatic Neck: Yes: Supple Respiratory: Yes: Regular Gastrointestinal: Yes: Soft Extremities: No: Cyanosis Edema: No Neurological: Yes: Alert Labs: CBC, BMP 05/31/20 05:45 05/31/20 05:45 INR, PTT INR 1.58 (0.83-1.09) H 05/27/20 05:30 Fibrinogen 298.0 mg/dL (238-498) 05/26/20 05:16 Assessment/Plan 70 year old woman with history of systolic heart failure, CKD with baseline Cr of 1.4, DM, Chronic osteomylitis who presented form the NH with respiratory distress and found to have respiratory failure requiring intubation with acute kidney injury. 1. Acute respiratory failure secondary to suspected pneumonia 2. Sepsis from UTI vs. PNA 3. Lactic acidosis in setting of sepsis 4. Acute on chronic renal insufficiency secondary to sepsis/renal hypoprofusion 5. Hx of CHF/Pleural effusions 6. Elevated troponins 7. Hyperkalemia Renal function stable. Volume status improved There is no overt electrolyte or acid/base disturbances noted. Consider starting oral torsemide 80mg daily once pt is tolerating a regular oral diet Trend renal function and electrolytes daily. Thank you Will follow Joaquín Berry DO
--- NOTE | 2020-05-31 20:41 | PN ---
Physical Exam: SUBJECTIVE: Patient seen and examined beside. On NC breathing comfortably. No events overnight. OBJECTIVE: Vital Signs Vital Signs - 8 hr 05/31/20 05/31/20 05/31/20 14:00 16:00 18:00 Temperature 98 F 98 F Pulse Rate 78 102 H 104 H Respiratory 18 15 Rate Blood Pressure 175/99 H 157/73 147/70 Gen: A&O x 3, somnolent but arousable Heart: RRR, s1 s2 Lung: decreased breath sounds at the bases Abd: soft, nontender, nondistended Ext: Edema BL, left BKA Laboratory Results - last 24 hr 05/30/20 05/31/20 05/31/20 22:57 05:15 05:45 WBC 10.4 H RBC 3.49 L Hgb 9.4 L Hct 29.9 L MCV 85.7 MCH 27.0 MCHC 31.6 L RDW 19.8 H Plt Count 241 MPV 9.3 Absolute Neuts (auto) 8.8 H Neutrophils % 84.0 H Lymphocytes % 6.0 L Monocytes % 7.8 Eosinophils % 1.7 Basophils % 0.5 Nucleated RBC % 0 Sodium Potassium Chloride Carbon Dioxide Anion Gap BUN Creatinine Est GFR (CKD-EPI)AfAm Est GFR (CKD-EPI)NonAf POC Glucometer 187 158 Random Glucose Calcium Phosphorus Magnesium Total Bilirubin AST ALT Alkaline Phosphatase Total Protein Albumin 05/31/20 05/31/20 05:45 13:36 WBC RBC Hgb Hct MCV MCH MCHC RDW Plt Count MPV Absolute Neuts (auto) Neutrophils % Lymphocytes % Monocytes % Eosinophils % Basophils % Nucleated RBC % Sodium 146 H Potassium 3.5 Chloride 109 H Carbon Dioxide 30 Anion Gap 7 L BUN 30.0 H Creatinine 1.2 Est GFR (CKD-EPI)AfAm 53.03 Est GFR (CKD-EPI)NonAf 45.75 POC Glucometer 159 Random Glucose 163 H Calcium 9.4 Phosphorus 2.6 Magnesium 2.2 Total Bilirubin 0.8 AST 81 H ALT 363 H Alkaline Phosphatase 268 H Total Protein 8.0 Albumin 2.3 L Active Medications Generic Name Dose Route Start Last Admin Trade Name Freq PRN Reason Stop Dose Admin Chlorhexidine Gluconate 1 applic 05/25/20 22:00 05/30/20 22:35 Hibiclens For Decolonization - TP 1 applic HS [facility] Administration Collagenase 1 applic 05/27/20 10:00 08/24/20 11:00 Santyl - TP 1 applic DAILY [facility] Administration Protocol Heparin Sodium (Porcine) 5,000 unit 05/29/20 22:00 05/31/20 12:05 Heparin - SQ 5,000 unit BID [facility] Administration Hydralazine HCl 10 mg 05/30/20 05:57 05/31/20 00:08 Apresoline Injection - IVPUSH 10 mg Q6H PRN Administration HYPERTENSION Meropenem 1 gm/ Dextrose 100 mls @ 200 mls/hr 05/26/20 22:45 05/31/20 12:05 IVPB 200 mls/hr BID [facility] Administration Insulin Aspart 1 vial 05/25/20 22:00 05/31/20 13:46 Novolog Vial Sliding Scale - SQ 2 units TID [facility] Administration Protocol Losartan Potassium 25 mg 05/31/20 10:00 05/31/20 12:05 Cozaar - PO 25 mg DAILY [facility] Administration Metoprolol Tartrate 25 mg 05/30/20 14:25 05/31/20 12:05 Lopressor - PO 25 mg BID [facility] Administration Pantoprazole Sodium 40 mg 05/25/20 18:00 05/31/20 12:05 Protonix Iv IVPUSH 40 mg DAILY [facility] Administration ASSESSMENT/PLAN: 70 year old female with a significant PMHx of Uncontrolled DM, Diabetic foot ulcer on R. foot, Chronic osteomyelitis of right foot, Diabetic neuropathy, Left leg below knee amputation, OA, Iron deficiency anemia, HLD, HTN, Charcot's joint, ESBL resistance and CHF who presents to the ED from [facility] for evaluation of hypoxia and AMS. The patient was previously discharged on 05/23 after having been treated for G (-) Bacteremia. Was admitted to ICU for Septic Shock likely 2/2 to pneumonia. Patient was intubated on 05/25. Currently extubated, no pressors, A&Ox1, HDS. Completed 5 days of merrem. Patient currently stable to downgrade to med/surg Visit type - Emergency Visit Emergency Visit: Yes ED Registration Date: 05/25/20 Care time: The patient presented to the Emergency Department on the above date and was hospitalized for further evaluation of their emergent condition. - New Patient This patient is new to me today: Yes Date on this admission: 06/02/20 - Critical Care Critical Care patient: Yes Total Critical Care Time (in minutes): 34 Critical Care Statement: The care of this patient involved high complexity decision making to prevent further life threatening deterioration of the patient's condition and/or to evaluate & treat vital organ system(s) failure or risk of failure. - Discharge Referral Referred to [facility] No - Medication Review Med list reviewed for High Risk Meds patients 65 and older: Yes ATTENDING PHYSICIAN STATEMENT I saw and evaluated the patient. I reviewed the resident's note and discussed the case with the resident. I agree with the resident's findings and plan as documented. SUBJECTIVE: OBJECTIVE: ASSESSMENT AND PLAN:
[2020-05-31] MEDS: CHLORHEXIDINE GLUCONATE 4% CLEANSER FOR DECOLONIZATION TP SCH (21:36)
[2020-06-01] MEDS ORDERED: hydrALAZINE HCL 10 MG TABLET NGT ONE (00:46)
[2020-06-01] MEDS ORDERED: amLODIPine BESYLATE 10 MG TABLET (FP) PO ONE (01:00)
[2020-06-01] MEDS: INSULIN SLIDING SCALE (NOVOLOG) 1 VIAL SQ SCH ×3 (06:25→22:36)
[2020-06-01] MEDS ORDERED: INSULIN (NOVOLOG) ASPART 100 UNITS/ML 10ML VIAL ONE (06:52)
[2020-06-01 07:32] LABS: HEMATOCRIT 29.7 % (32.4-45.2); HEMOGLOBIN 9.4 GM/dL (10.7-15.3); MCH 27.2 pg (25.7-33.7); MCHC 31.7 g/dl (32.0-36.0); MEAN CELL VOLUME 85.6 fl (80-96); PLATELET COUNT 250 K/MM3 (134-434); RBC 3.47 M/mm3 (3.60-5.2); WHITE BLOOD COUNT 9.2 K/mm3 (4.0-10.0)
[2020-06-01] MEDS ORDERED: hydrALAZINE HCL 20 MG/ML VIAL IVPUSH PRN (07:36)
[2020-06-01 07:59] LABS: BLOOD UREA NITROGEN 28.3 mg/dL (7-18); CALCIUM 9.4 mg/dL (8.5-10.1); CREATININE 1.1 mg/dL (0.55-1.3); MAGNESIUM 2.2 mg/dL (1.8-2.4); PHOSPHOROUS 3.3 mg/dL (2.5-4.9); POTASSIUM 3.6 mmol/L (3.5-5.1)
[2020-06-01] MEDS ORDERED: LOSARTAN POTASSIUM 25 MG TABLET PO SCH (10:00)
--- NOTE | 2020-06-01 10:24 | PN ---
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, RECORD SYSTEMS ANALYST - Note 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: Selected Entries 05/21/20 05/27/20 05/27/20 10:00 05:34 14:15 Breakfast Diet Tolerated Well Intake, Oral Amount Temperature Pulse Rate Blood Pressure O2 Sat by Pulse Oximetry (%) Oxygen Delivery Method Fraction of Inspired Oxygen (FIO2) Weight 181 lb 7.047 oz 181 lb 05/28/20 05/28/20 05/28/20 00:00 00:09 01:00 Breakfast Diet Tolerated Intake, Oral Amount Temperature Pulse Rate Blood Pressure O2 Sat by Pulse 100 99 100 Oximetry (%) Oxygen Delivery Method Fraction of 50 Inspired Oxygen (FIO2) Weight 05/28/20 05/28/20 05/28/20 02:00 03:00 04:00 Breakfast Diet Tolerated Intake, Oral Amount Temperature Pulse Rate Blood Pressure O2 Sat by Pulse 99 99 97 Oximetry (%) Oxygen Delivery Method Fraction of Inspired Oxygen (FIO2) Weight 05/28/20 05/28/20 05/28/20 04:09 05:00 06:00 Breakfast Diet Tolerated Intake, Oral Amount Temperature Pulse Rate Blood Pressure O2 Sat by Pulse 99 107 H Oximetry (%) Oxygen Delivery Method Fraction of 50 Inspired Oxygen (FIO2) Weight 05/28/20 05/28/20 05/28/20 08:00 08:22 09:00 Breakfast Diet Tolerated Intake, Oral Amount Temperature Pulse Rate Blood Pressure O2 Sat by Pulse 100 99 99 Oximetry (%) Oxygen Delivery Mechanical Mechanical Method Ventilator Ventilator Fraction of 50 50 Inspired Oxygen (FIO2) Weight 05/28/20 05/28/20 05/28/20 10:00 12:00 12:06 Breakfast Diet Tolerated Intake, Oral Amount Temperature Pulse Rate Blood Pressure O2 Sat by Pulse 99 97 97 Oximetry (%) Oxygen Delivery Mechanical Method Ventilator Fraction of 50 40 Inspired Oxygen (FIO2) Weight 05/28/20 05/28/20 05/28/20 12:13 14:00 16:00 Breakfast Diet Tolerated Intake, Oral Amount Temperature Pulse Rate Blood Pressure O2 Sat by Pulse 97 97 98 Oximetry (%) Oxygen Delivery Mechanical Method Ventilator Fraction of 40 40 Inspired Oxygen (FIO2) Weight 05/28/20 05/28/20 05/28/20 18:00 21:00 21:19 Breakfast Diet Tolerated Intake, Oral Amount Temperature Pulse Rate Blood Pressure O2 Sat by Pulse 98 100 100 Oximetry (%) Oxygen Delivery Method Fraction of 40 Inspired Oxygen (FIO2) Weight 05/28/20 05/28/20 05/30/20 22:00 23:00 08:00 Breakfast Diet Tolerated Intake, Oral Amount Temperature Pulse Rate Blood Pressure O2 Sat by Pulse 100 100 98 Oximetry (%) Oxygen Delivery Method Fraction of Inspired Oxygen (FIO2) Weight 05/30/20 05/30/20 05/30/20 09:00 10:00 12:00 Breakfast Diet Tolerated Intake, Oral Amount Temperature Pulse Rate Blood Pressure O2 Sat by Pulse 97 97 98 Oximetry (%) Oxygen Delivery Nasal Cannula Method Fraction of Inspired Oxygen (FIO2) Weight 05/30/20 05/30/20 05/30/20 14:00 16:00 18:00 Breakfast Diet Tolerated Intake, Oral Amount Temperature Pulse Rate Blood Pressure O2 Sat by Pulse 100 98 98 Oximetry (%) Oxygen Delivery Method Fraction of Inspired Oxygen (FIO2) Weight 05/30/20 05/30/20 05/31/20 20:00 22:00 00:00 Breakfast Diet Tolerated Intake, Oral Amount Temperature Pulse Rate 75 Blood Pressure 170/94 O2 Sat by Pulse 98 99 98 Oximetry (%) Oxygen Delivery Nasal Cannula Method Fraction of Inspired Oxygen (FIO2) Weight 05/31/20 05/31/20 05/31/20 02:10 04:00 06:00 Breakfast Diet Tolerated Intake, Oral 50 Amount Temperature Pulse Rate 79 76 86 Blood Pressure 153/101 H 150/82 174/94 H O2 Sat by Pulse 99 98 94 L Oximetry (%) Oxygen Delivery Method Fraction of Inspired Oxygen (FIO2) Weight 172 lb 9.951 oz 05/31/20 05/31/20 05/31/20 07:45 10:00 12:00 Breakfast Diet Tolerated Intake, Oral Amount Temperature 97.8 F 97.8 F Pulse Rate 84 86 88 Blood Pressure 154/87 171/100 H 188/99 H O2 Sat by Pulse 94 L Oximetry (%) Oxygen Delivery Method Fraction of Inspired Oxygen (FIO2) Weight 05/31/20 05/31/20 05/31/20 14:00 16:00 18:00 Breakfast Diet Tolerated Intake, Oral Amount Temperature 98 F 98 F Pulse Rate 78 102 H 104 H Blood Pressure 175/99 H 157/73 147/70 O2 Sat by Pulse Oximetry (%) Oxygen Delivery Method Fraction of Inspired Oxygen (FIO2) Weight 05/31/20 05/31/20 06/01/20 23:56 23:57 01:43 Breakfast Diet Tolerated Intake, Oral Amount Temperature 97.8 F 97.8 F 97.7 F Pulse Rate 90 90 85 Blood Pressure 180/101 H 180/101 H 178/114 H O2 Sat by Pulse Oximetry (%) Oxygen Delivery Method Fraction of Inspired Oxygen (FIO2) Weight 06/01/20 06/01/20 06/01/20 02:30 06:00 08:51 Breakfast NPO Diet Tolerated Intake, Oral Amount Temperature 98.6 F Pulse Rate 83 85 Blood Pressure 161/81 142/79 O2 Sat by Pulse Oximetry (%) Oxygen Delivery Method Fraction of Inspired Oxygen (FIO2) Weight Laboratory Tests 05/11/20 05/12/20 05/25/20 16:20 08:00 09:40 WBC Sodium POC Glucometer COVID-19 ([facility]) Not detected Not detected Hepatitis A Ab Total Positive H 05/28/20 05/29/20 05/30/20 06:00 06:10 09:00 WBC 11.6 H 9.2 9.8 Sodium POC Glucometer COVID-19 ([facility]) Hepatitis A Ab Total 05/31/20 05/31/20 06/01/20 05:15 05:45 06:46 WBC 10.4 H 9.2 Sodium POC Glucometer 158 COVID-19 ([facility]) Hepatitis A Ab Total 06/01/20 06:46 WBC Sodium 147 H POC Glucometer COVID-19 ([facility]) Hepatitis A Ab Total Puree/nectar ordered for lunch Aspiration precautions Monitor tolerance MBS if cough,congestion,fever
--- NOTE | 2020-06-01 10:26 | PN ---
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, Physician Chief Complaint: Acute Hypoxic Respiratory Failure s/p extubation on 05/29/20 Pneumonia UTI Bacteremia Suspected Amyloidosis +Troponins likely Demand Ischemia HTN DM Hyperlipidemia Anemia Sepsis History of Present Illness: NAD Pleasantly confused - Current Medication List Current Medications: Active Medications Collagenase (Santyl -) 1 applic TP DAILY [facility]; Protocol Heparin Sodium (Porcine) (Heparin -) 5,000 unit SQ BID [facility] Hydralazine HCl (Apresoline Injection -) 10 mg IVPUSH Q6H PRN PRN Reason: HYPERTENSION Meropenem 1 gm/ Dextrose 100 mls @ 200 mls/hr IVPB Q12H [facility] Insulin Aspart (Novolog Vial Sliding Scale -) 1 vial SQ TID [facility]; Protocol Losartan Potassium (Cozaar -) 25 mg PO DAILY [facility] Metoprolol Tartrate (Lopressor -) 25 mg PO BID [facility] Pantoprazole Sodium (Protonix Iv) 40 mg IVPUSH DAILY [facility] - Objective Vital Signs: Vital Signs Temperature 98.6 F 06/01/20 06:00 Pulse Rate 85 06/01/20 06:00 Respiratory Rate 18 06/01/20 06:00 Blood Pressure 142/79 06/01/20 06:00 O2 Sat by Pulse Oximetry (%) 96 06/01/20 06:00 Constitutional: Yes: Well Nourished, No Distress, Calm Cardiovascular: Yes: Regular Rate and Rhythm Respiratory: Yes: Regular, CTA Bilaterally Gastrointestinal: Yes: Normal Bowel Sounds, Soft Genitourinary: Yes: Germain Present Musculoskeletal: Yes: WNL Extremities: Yes: Amputation (LBKA) Edema: No Peripheral Pulses WNL: Yes Neurological: Yes: Alert, Confusion Psychiatric: Yes: Alert Labs: CBC, BMP 06/01/20 06:46 06/01/20 06:46 INR, PTT INR 1.58 (0.83-1.09) H 05/27/20 05:30 Fibrinogen 298.0 mg/dL (238-498) 05/26/20 05:16 Problem List - Problems (1) Sepsis Assessment/Plan: -resolved -ID consult -IV meropenem -Repeat BC preliminary negative -Afebrile -Cultures: Microbiology 05/29/20 06:10 Blood - Peripheral Venous Blood Culture - Preliminary NO GROWTH OBTAINED AFTER 72 HOURS, INCUBATION TO CONTINUE FOR 2 DAYS. 05/29/20 06:10 Blood - Peripheral Venous Blood Culture - Preliminary NO GROWTH OBTAINED AFTER 72 HOURS, INCUBATION TO CONTINUE FOR 2 DAYS. 05/25/20 18:30 Sputum - Endotrachea Suction/Ventilator Gram Stain - Final 05/25/20 18:30 Sputum - Endotrachea Suction/Ventilator Sputum Culture - Final Yeast Like Organism 05/25/20 09:40 Blood - Peripheral Venous Blood Culture - Final Lactose Fermenting Neg Bacilli 05/25/20 09:35 Blood - Peripheral Venous Blood Culture - Final Citrobacter Koseri 05/25/20 09:40 Urine - Urine - Catheterized Urine Culture - Final NO GROWTH OBTAINED Problems reviewed: Yes Code(s): A41.9 - SEPSIS, UNSPECIFIED ORGANISM (2) Acute on chronic renal failure Assessment/Plan: -Nephrology consult -2/2 to acute infection -Cr at baseline Problems reviewed: Yes Code(s): N17.9 - ACUTE KIDNEY FAILURE, UNSPECIFIED; N18.9 - CHRONIC KIDNEY DISEASE, UNSPECIFIED Qualifiers: Acute renal failure type: unspecified Chronic kidney disease stage: unspe cified stage Qualified Code(s): N17.9 - Acute kidney failure, unspecified; N18.9 - Chronic kidney disease, unspecified (3) Amyloid disease Problems reviewed: Yes Code(s): E85.9 - AMYLOIDOSIS, UNSPECIFIED (4) Anemia Assessment/Plan: -KARIS in the past -Feosol BID -Monitor H/H -no overt bleeding -Check thyroid profile Problems reviewed: Yes Code(s): D64.9 - ANEMIA, UNSPECIFIED (5) Pleural effusion Problems reviewed: Yes Code(s): J90 - PLEURAL EFFUSION, NOT ELSEWHERE CLASSIFIED (6) Right lower lobe pneumonia Assessment/Plan: -as above -O2 to keep SpO2>90% -Pulmonary consult -COVID 19 PCR negative -Still on IV abx -ID on board -Afebrile Problems reviewed: Yes Code(s): J18.9 - PNEUMONIA, UNSPECIFIED ORGANISM Qualifiers: Pneumonia type: due to unspecified organism Qualified Code(s): J18.9 - Pneumonia, unspecified organism (7) Troponin I above reference range Assessment/Plan: -2/2 to sepsis and demand ischemia -ICU monitoring -Cardiology consult Problems reviewed: Yes Code(s): R79.89 - OTHER SPECIFIED ABNORMAL FINDINGS OF BLOOD CHEMISTRY (8) HTN (hypertension) Assessment/Plan: -Increase Losartan to 50 mg daily -Titrate meds to meet goal <140/90 mmHg Problems reviewed: Yes Code(s): I10 - ESSENTIAL (PRIMARY) HYPERTENSION (9) CHF (congestive heart failure) Assessment/Plan: -Continue BB + ARB Problems reviewed: Yes Code(s): I50.9 - HEART FAILURE, UNSPECIFIED Qualifiers: Heart failure type: unspecified Heart failure chronicity: unspecified Qualified Code(s): I50.9 - Heart failure, unspecified (10) Elevated liver enzymes Assessment/Plan: -likely 2/2 to congestive hepatopathy vs suspected amyloidosis -Trending down -Avoid hepatotoxic drugs Problems reviewed: Yes Code(s): R74.8 - ABNORMAL LEVELS OF OTHER SERUM ENZYMES Assessment/Plan See problem list D/C germain for voiding trail Bladder laboy in 10 hours, re-insert germain if retaining >300 ml of urine
--- NOTE | 2020-06-01 10:27 | PN ---
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, Physician History of Present Illness: PULMONARY AWAKE,COMFORTABLE,-SOB,ON NASAL O2 SAT 98% - Current Medication List Current Medications: Active Medications Collagenase (Santyl -) 1 applic TP DAILY [facility]; Protocol Ferrous Sulfate (Feosol -) 325 mg PO BID [facility] Heparin Sodium (Porcine) (Heparin -) 5,000 unit SQ BID [facility] Hydralazine HCl (Apresoline Injection -) 10 mg IVPUSH Q6H PRN PRN Reason: HYPERTENSION Meropenem 1 gm/ Dextrose 100 mls @ 200 mls/hr IVPB Q12H [facility] Insulin Aspart (Novolog Vial Sliding Scale -) 1 vial SQ TID [facility]; Protocol Losartan Potassium (Cozaar -) 25 mg PO DAILY [facility] Metoprolol Tartrate (Lopressor -) 25 mg PO BID [facility] Pantoprazole Sodium (Protonix Iv) 40 mg IVPUSH DAILY [facility] - Objective Vital Signs: Vital Signs Temperature 98.6 F 06/01/20 06:00 Pulse Rate 85 06/01/20 06:00 Respiratory Rate 18 06/01/20 06:00 Blood Pressure 142/79 06/01/20 06:00 O2 Sat by Pulse Oximetry (%) 96 06/01/20 06:00 Constitutional: Yes: Well Nourished, Calm Eyes: Yes: WNL HENT: Yes: WNL Neck: Yes: WNL Cardiovascular: Yes: Regular Rate and Rhythm, S2 Respiratory: Yes: CTA Bilaterally Gastrointestinal: Yes: Normal Bowel Sounds, Soft Extremities: Yes: Amputation (LEFT BKA) Labs: CBC, BMP 06/01/20 06:46 06/01/20 06:46 INR, PTT INR 1.58 (0.83-1.09) H 05/27/20 05:30 Fibrinogen 298.0 mg/dL (238-498) 05/26/20 05:16 Assessment/Plan ASSESSMENT AND PLAN: Acute Hypoxic Respiratory Failure improving Pneumonia UTI LV Diastolic Dysfunction Suspected Amyloidosis +Troponins likely Demand Ischemia HTN DM Hyperlipidemia Anemia - continue antibiotics per ID - O2 to keep SpO2 >90% - aspiration precautions - PO as tolerated - DVT prophylaxis DR LEAL
[2020-06-01] MEDS ORDERED: ACETAMINOPHEN 650 MG/20.3 ML ORAL SOLUTION (CUPS) PO PRN (10:29)
[2020-06-01] MEDS ORDERED: MEROPENEM 1 GM VIAL (RESTRICTED TO ID) IVPB ONE ×3 (10:59→22:04)
[2020-06-01] MEDS ORDERED: DEXTROSE 5%-WATER 100 ML IVPB ONE ×2 (10:59→22:04)
[2020-06-01] MEDS: MEROPENEM 1 GM in DEXTROSE 5%-WATER 100 ML IVPB SCH ×2 (11:02→22:36)
[2020-06-01] MEDS: HEPARIN NA (PORCINE) 5,000 UNITS/ML 1ML VIAL SQ SCH ×2 (11:03→22:35)
[2020-06-01] MEDS: PANTOPRAZOLE SODIUM 40 MG VIAL IVPUSH SCH (11:03)
[2020-06-01] MEDS: METOPROLOL TARTRATE 25 MG TABLET (FP) PO SCH ×2 (11:03→22:35)
[2020-06-01] MEDS: COLLAGENASE CLOSTRIDIUM HIST. 30 GRAMS TUBE TP SCH (11:03)
[2020-06-01] MEDS: LOSARTAN POTASSIUM 50 MG TABLET (FP) PO SCH (11:11)
[2020-06-01] MEDS: FERROUS SO4 325 MG TABLET (FP) PO SCH ×2 (11:11→22:35)
--- NOTE | 2020-06-01 11:50 | PN ---
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, Physician History of Present Illness: stable feels better still very weak - Current Medication List Current Medications: Active Medications Acetaminophen (Tylenol Oral Solution -) 650 mg PO Q4H PRN PRN Reason: PAIN Collagenase (Santyl -) 1 applic TP DAILY [facility]; Protocol Last Admin: 06/01/20 11:03 Dose: 1 appful Documented by: Ferrous Sulfate (Feosol -) 325 mg PO BID [facility] Last Admin: 06/01/20 11:11 Dose: 325 mg Documented by: Heparin Sodium (Porcine) (Heparin -) 5,000 unit SQ BID [facility] Last Admin: 06/01/20 11:03 Dose: 5,000 unit Documented by: Hydralazine HCl (Apresoline Injection -) 10 mg IVPUSH Q6H PRN PRN Reason: HYPERTENSION Meropenem 1 gm/ Dextrose 100 mls @ 200 mls/hr IVPB Q12H [facility] Last Admin: 06/01/20 11:02 Dose: 200 mls/hr Documented by: Insulin Aspart (Novolog Vial Sliding Scale -) 1 vial SQ TID [facility]; Protocol Losartan Potassium (Cozaar -) 50 mg PO DAILY [facility] Last Admin: 06/01/20 11:11 Dose: 50 mg Documented by: Metoprolol Tartrate (Lopressor -) 25 mg PO BID [facility] Last Admin: 06/01/20 11:03 Dose: 25 mg Documented by: Pantoprazole Sodium (Protonix Iv) 40 mg IVPUSH DAILY [facility] Last Admin: 06/01/20 11:03 Dose: 40 mg Documented by: - Objective Vital Signs: Vital Signs Temperature 98 F 06/01/20 10:00 Pulse Rate 86 06/01/20 10:00 Respiratory Rate 18 06/01/20 10:00 Blood Pressure 145/87 06/01/20 10:00 O2 Sat by Pulse Oximetry (%) 98 06/01/20 10:00 Constitutional: Yes: No Distress, Calm Cardiovascular: Yes: S1, S2 Respiratory: Yes: Regular, CTA Bilaterally Gastrointestinal: Yes: Normal Bowel Sounds, Soft Musculoskeletal: Yes: WNL Extremities: Yes: WNL Neurological: Yes: Alert Psychiatric: Yes: Alert Labs: CBC, BMP 06/01/20 06:46 06/01/20 06:46 INR, PTT INR 1.58 (0.83-1.09) H 05/27/20 05:30 Fibrinogen 298.0 mg/dL (238-498) 05/26/20 05:16 Assessment/Plan Acute Respiratory Failure due to Multi-lobar PNA R/O Aspiration Uncontrolled DM Right diabetic foot ulcer Chronic osteomyelitis of right foot Diabetic neuropathy Left BKA OA Iron deficiency anemia HLD HTN Charcot's joint gm negative bacteremia plan meropenam will deescalte after completing tomorrows dose rest as per the team nutrition
--- NOTE | 2020-06-01 16:17 | PN ---
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, Physician Chief Complaint: Sepsis History of Present Illness: Seen and examined at the bedside groggy daughter at the bedside and reports that she is more groggy/lethargic today no fever, chills no overnight events pt was alert and ate this morning as per nurse - Current Medication List Current Medications: Active Medications Acetaminophen (Tylenol Oral Solution -) 650 mg PO Q4H PRN PRN Reason: PAIN Collagenase (Santyl -) 1 applic TP DAILY [facility]; Protocol Last Admin: 06/01/20 11:03 Dose: 1 appful Documented by: Ferrous Sulfate (Feosol -) 325 mg PO BID [facility] Last Admin: 06/01/20 11:11 Dose: 325 mg Documented by: Heparin Sodium (Porcine) (Heparin -) 5,000 unit SQ BID [facility] Last Admin: 06/01/20 11:03 Dose: 5,000 unit Documented by: Hydralazine HCl (Apresoline Injection -) 10 mg IVPUSH Q6H PRN PRN Reason: HYPERTENSION Meropenem 1 gm/ Dextrose 100 mls @ 200 mls/hr IVPB Q12H [facility] Last Admin: 06/01/20 11:02 Dose: 200 mls/hr Documented by: Insulin Aspart (Novolog Vial Sliding Scale -) 1 vial SQ TID [facility]; Protocol Last Admin: 06/01/20 15:44 Dose: Not Given Documented by: Losartan Potassium (Cozaar -) 50 mg PO DAILY [facility] Last Admin: 06/01/20 11:11 Dose: 50 mg Documented by: Metoprolol Tartrate (Lopressor -) 25 mg PO BID [facility] Last Admin: 06/01/20 11:03 Dose: 25 mg Documented by: Pantoprazole Sodium (Protonix Iv) 40 mg IVPUSH DAILY [facility] Last Admin: 06/01/20 11:03 Dose: 40 mg Documented by: - Objective Vital Signs: Vital Signs Temperature 98.6 F 06/01/20 14:50 Pulse Rate 73 06/01/20 14:50 Respiratory Rate 18 06/01/20 14:50 Blood Pressure 119/58 L 06/01/20 14:50 O2 Sat by Pulse Oximetry (%) 96 06/01/20 14:50 Constitutional: Yes: No Distress, Calm HENT: Yes: Atraumatic Neck: Yes: Supple Cardiovascular: Yes: Regular Rate and Rhythm Respiratory: Yes: Regular Gastrointestinal: Yes: Soft Extremities: No: Cyanosis Edema: No Neurological: Yes: Alert Labs: CBC, BMP 06/01/20 06:46 06/01/20 06:46 INR, PTT INR 1.58 (0.83-1.09) H 05/27/20 05:30 Fibrinogen 298.0 mg/dL (238-498) 05/26/20 05:16 Assessment/Plan 70 year old woman with history of systolic heart failure, CKD with baseline Cr of 1.4, DM, Chronic osteomylitis who presented form the NH with respiratory distress and found to have respiratory failure requiring intubation with acute kidney injury. 1. Acute respiratory failure secondary to suspected pneumonia 2. Sepsis from UTI vs. PNA 3. Lactic acidosis in setting of sepsis 4. Acute on chronic renal insufficiency secondary to sepsis/renal hypoprofusion 5. Hx of CHF/Pleural effusions 6. Elevated troponins 7. Hyperkalemia Renal function improved and stable Volume status improved but still has peipheral edema There is no overt electrolyte or acid/base disturbances noted. Consider starting oral torsemide 80mg daily once pt is tolerating a regular oral diet Trend renal function and electrolytes daily. if mental status not improving would consider imaging studies Thank you Will follow Joaquín Berry DO
--- NOTE | 2020-06-02 02:34 | PN ---
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, Physician Chief Complaint: Pt lethargic; reportedly more alert in am. History of Present Illness: Ms. Figueroa is a 70 year old black female (b. 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 foot, Chronic osteomyelitis of right foot, Diabetic neuropathy, Left leg below knee amputation, OA, Iron deficiency anemia, HLD, HTN, Charcot's joint, ESBL resistance, recently discharged from [facility] after treatment for CHF, who presents to the ED BIBA from [facility] for evaluation of hypoxia and AMS. Allergies: NKA Social history: No reported hx of tobacco use, alcohol use or illicit drug use. PCP: Romain Carvalho JR - Current Medication List Current Medications: Active Medications Acetaminophen (Tylenol Oral Solution -) 650 mg PO Q4H PRN PRN Reason: PAIN Collagenase (Santyl -) [address] [facility]; Protocol Last Admin: 06/01/20 11:03 Dose: 1 appful Documented by: Ferrous Sulfate (Feosol -) [address] [facility] Last Admin: 06/01/20 22:35 Dose: 325 mg Documented by: Heparin Sodium (Porcine) (Heparin -) 5,000 unit SQ BID [facility] Last Admin: 06/01/20 22:35 Dose: 5,000 unit Documented by: Hydralazine HCl (Apresoline Injection -) 10 mg IVPUSH Q6H PRN PRN Reason: HYPERTENSION Meropenem 1 gm/ Dextrose 100 mls @ 200 mls/hr IVPB Q12H [facility] Last Admin: 06/01/20 22:36 Dose: 200 mls/hr Documented by: Insulin Aspart (Novolog Vial Sliding Scale -) [address] [facility]; Protocol Last Admin: 06/01/20 22:36 Dose: Not Given Documented by: Losartan Potassium (Cozaar -) [address] [facility] Last Admin: 06/01/20 11:11 Dose: 50 mg Documented by: Metoprolol Tartrate (Lopressor -) [address] [facility] Last Admin: 06/01/20 22:35 Dose: 25 mg Documented by: Pantoprazole Sodium (Protonix Iv) [address] [facility] Last Admin: 06/01/20 11:03 Dose: 40 mg Documented by: - Objective Vital Signs: Vital Signs Temperature 98.7 F 06/01/20 18:00 Pulse Rate 80 06/01/20 18:00 Respiratory Rate 18 06/01/20 18:00 Blood Pressure 149/86 06/01/20 18:00 O2 Sat by Pulse Oximetry (%) 99 06/01/20 18:00 Constitutional: Yes: Calm Eyes: Yes: WNL Neck: Yes: Decreased ROM Cardiovascular: Yes: S1, S2 Respiratory: Yes: Diminished Gastrointestinal: Yes: Soft Genitourinary: No: Anuria Musculoskeletal: Yes: Muscle Weakness Extremities: Yes: Cool, Other (left BKA) Edema: Yes Edema: RLE: 1+ Peripheral Pulses WNL: No Peripheral Pulses: Right Dorsalis Pedis: 1+ Integumentary: Yes: Pressure Ulcer, Venous Stasis Changes Neurological: Yes: Confusion, Weakness Psychiatric: Yes: Other Labs: CBC, BMP 06/01/20 06:46 06/01/20 06:46 INR, PTT INR 1.58 (0.83-1.09) H 05/27/20 05:30 Fibrinogen 298.0 mg/dL (238-498) 05/26/20 05:16 Abnormal Lab Results 06/01/20 06/01/20 06:46 06:46 RBC 3.47 L Hgb 9.4 L Hct 29.7 L MCHC 31.7 L RDW 20.0 H Sodium 147 H Chloride 110 H BUN 28.3 H Random Glucose 194 H GGT 186 H - ....Imaging Chest X-ray: Image Reviewed EKG: Image Reviewed Assessment/Plan 70 yr old black woman with PMHx low-normal systolic, diastolic CHF, ?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 foot, Chronic osteomyelitis of right foot, Diabetic neuropathy, Left leg below knee amputation, renal dysfunction, OA, Iron deficiency anemia, HLD, HTN, ESBL resistance, who presents to the ED from [facility] for evaluation of hypoxia and AMS requiring intubation after recent admission for CHF. Suspected multilobar pnemonia and sepsis. Now more lethargic. Plan: HTN: may increase losartan dose if OK by lock setter; may increase metoprolol dose. On diuretics. Hydralazine may be used if BP refractory. Hb stable (9.4) On furosemide IVP; F/u renal w/u with lock setter. Amyloidosis w/u at [facility] Heart Failure Clinic pending. Consider further w/u for lethargy if change persists.
[2020-06-02] MEDS: INSULIN SLIDING SCALE (NOVOLOG) 1 VIAL SQ SCH ×3 (06:02→23:49)
--- NOTE | 2020-06-02 09:09 | PN ---
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, Physician History of Present Illness: stable very weak deconditioned - Current Medication List Current Medications: Active Medications Acetaminophen (Tylenol Oral Solution -) 650 mg PO Q4H PRN PRN Reason: PAIN Collagenase (Santyl -) 1 applic TP DAILY [facility]; Protocol Last Admin: 06/01/20 11:03 Dose: 1 appful Documented by: Ferrous Sulfate (Feosol -) 325 mg PO BID [facility] Last Admin: 06/01/20 22:35 Dose: 325 mg Documented by: Heparin Sodium (Porcine) (Heparin -) 5,000 unit SQ BID [facility] Last Admin: 06/01/20 22:35 Dose: 5,000 unit Documented by: Hydralazine HCl (Apresoline Injection -) 10 mg IVPUSH Q6H PRN PRN Reason: HYPERTENSION Meropenem 1 gm/ Dextrose 100 mls @ 200 mls/hr IVPB Q12H [facility] Last Admin: 06/01/20 22:36 Dose: 200 mls/hr Documented by: Insulin Aspart (Novolog Vial Sliding Scale -) 1 vial SQ TID [facility]; Protocol Last Admin: 06/02/20 06:02 Dose: 6 units Documented by: Losartan Potassium (Cozaar -) 50 mg PO DAILY [facility] Last Admin: 06/01/20 11:11 Dose: 50 mg Documented by: Metoprolol Tartrate (Lopressor -) 25 mg PO BID [facility] Last Admin: 06/01/20 22:35 Dose: 25 mg Documented by: Pantoprazole Sodium (Protonix Iv) 40 mg IVPUSH DAILY [facility] Last Admin: 06/01/20 11:03 Dose: 40 mg Documented by: - Objective Vital Signs: Vital Signs Temperature 98.2 F 06/02/20 06:00 Pulse Rate 79 06/02/20 06:00 Respiratory Rate 17 06/02/20 06:00 Blood Pressure 167/99 06/02/20 06:00 O2 Sat by Pulse Oximetry (%) 94 L 06/02/20 06:00 Constitutional: Yes: No Distress, Calm Cardiovascular: Yes: S1, S2 Respiratory: Yes: Regular, CTA Bilaterally Gastrointestinal: Yes: Normal Bowel Sounds, Soft Musculoskeletal: Yes: WNL Extremities: Yes: WNL Neurological: Yes: Alert, Oriented Psychiatric: Yes: Alert, Oriented Labs: CBC, BMP 06/01/20 06:46 06/01/20 06:46 INR, PTT INR 1.58 (0.83-1.09) H 05/27/20 05:30 Fibrinogen 298.0 mg/dL (238-498) 05/26/20 05:16 Assessment/Plan Acute Respiratory Failure due to Multi-lobar PNA R/O Aspiration Uncontrolled DM Right diabetic foot ulcer Chronic osteomyelitis of right foot Diabetic neuropathy Left BKA OA Iron deficiency anemia HLD HTN Charcot's joint gm negative bacteremia plan meropenam can stop abx tomorrow nutrition rest as per the team
--- NOTE | 2020-06-02 09:31 | PN ---
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, Physician Chief Complaint: Acute Hypoxic Respiratory Failure s/p extubation on 05/29/20 Pneumonia UTI Bacteremia Suspected Amyloidosis +Troponins likely Demand Ischemia HTN DM Hyperlipidemia Anemia Sepsis History of Present Illness: NAD Pleasantly confused - Current Medication List Current Medications: Active Medications Acetaminophen (Tylenol Oral Solution -) 650 mg PO Q4H PRN PRN Reason: PAIN Collagenase (Santyl -) 1 applic TP DAILY [facility]; Protocol Last Admin: 06/01/20 11:03 Dose: 1 appful Documented by: Ferrous Sulfate (Feosol -) 325 mg PO BID [facility] Last Admin: 06/01/20 22:35 Dose: 325 mg Documented by: Heparin Sodium (Porcine) (Heparin -) 5,000 unit SQ BID [facility] Last Admin: 06/01/20 22:35 Dose: 5,000 unit Documented by: Hydralazine HCl (Apresoline Injection -) 10 mg IVPUSH Q6H PRN PRN Reason: HYPERTENSION Meropenem 1 gm/ Dextrose 100 mls @ 200 mls/hr IVPB Q12H [facility] Last Admin: 06/01/20 22:36 Dose: 200 mls/hr Documented by: Insulin Aspart (Novolog Vial Sliding Scale -) 1 vial SQ TID [facility]; Protocol Last Admin: 06/02/20 06:02 Dose: 6 units Documented by: Losartan Potassium (Cozaar -) 50 mg PO DAILY [facility] Last Admin: 06/01/20 11:11 Dose: 50 mg Documented by: Metoprolol Tartrate (Lopressor -) 25 mg PO BID [facility] Last Admin: 06/01/20 22:35 Dose: 25 mg Documented by: Pantoprazole Sodium (Protonix Iv) 40 mg IVPUSH DAILY [facility] Last Admin: 06/01/20 11:03 Dose: 40 mg Documented by: - Objective Vital Signs: Vital Signs Temperature 98.2 F 06/02/20 06:00 Pulse Rate 79 06/02/20 06:00 Respiratory Rate 17 06/02/20 06:00 Blood Pressure 167/99 06/02/20 06:00 O2 Sat by Pulse Oximetry (%) 94 L 06/02/20 06:00 Constitutional: Yes: Well Nourished, No Distress, Calm Cardiovascular: Yes: Regular Rate and Rhythm Respiratory: Yes: Regular, CTA Bilaterally Gastrointestinal: Yes: Normal Bowel Sounds, Soft Genitourinary: Yes: Incontinence Musculoskeletal: Yes: Muscle Weakness Extremities: Yes: WNL Edema: No Peripheral Pulses WNL: Yes Neurological: Yes: Alert, Oriented (x1) Psychiatric: Yes: Alert Labs: CBC, BMP 06/01/20 06:46 06/01/20 06:46 INR, PTT INR 1.58 (0.83-1.09) H 05/27/20 05:30 Fibrinogen 298.0 mg/dL (238-498) 05/26/20 05:16 Problem List - Problems (1) Sepsis Assessment/Plan: -resolved -ID consult -IV meropenem -Repeat BC preliminary negative -Afebrile -Cultures: Microbiology 05/29/20 06:10 Blood - Peripheral Venous Blood Culture - Preliminary NO GROWTH OBTAINED AFTER 72 HOURS, INCUBATION TO CON TINUE FOR 2 DAYS. 05/29/20 06:10 Blood - Peripheral Venous Blood Culture - Preliminary NO GROWTH OBTAINED AFTER 72 HOURS, INCUBATION TO CONTINUE FOR 2 DAYS. 05/25/20 18:30 Sputum - Endotrachea Suction/Ventilator Gram Stain - Final 05/25/20 18:30 Sputum - Endotrachea Suction/Ventilator Sputum Culture - F inal Yeast Like Organism 05/25/20 09:40 Blood - Peripheral Venous Blood Culture - Final Lactose Fermenting Neg Bacilli 05/25/20 09:35 Blood - Peripheral Venous Blood Culture - Final Citrobacter Koseri 05/25/20 09:40 Urine - Urine - Catheterized Urine Culture - Final NO GROWTH OBTAINED Problems reviewed: Yes Code(s): A41.9 - SEPSIS, UNSPECIFIED ORGANISM (2) Acute on chronic renal failure Assessment/Plan: -Nephrology consult -2/2 to acute infection -Cr at baseline Problems reviewed: Yes Code(s): N17.9 - ACUTE KIDNEY FAILURE, UNSPECIFIED; N18.9 - CHRONIC KIDNEY DISEASE, UNSPECIFIED Qualifiers: Acute renal failure type: unspecified Chronic kidney disease stage: unspecified stage Qualified Code(s): N17.9 - Acute kidney failure, unspec ified; N18.9 - Chronic kidney disease, unspecified (3) Amyloid disease Problems reviewed: Yes Code(s): E85.9 - AMYLOIDOSIS, UNSPECIFIED (4) Anemia Assessment/Plan: -KARIS in the past -Feosol BID -Monitor H/H -no overt bleeding -Check thyroid profile Problems reviewed: Yes Code(s): D64.9 - ANEMIA, UNSPECIFIED (5) Pleural effusion Problems reviewed: Yes Code(s): J90 - PLEURAL EFFUSION, NOT ELSEWHERE CLASSIFIED (6) Right lower lobe pneumonia Assessment/Plan: -as above -O2 to keep SpO2>90% -Pulmonary consult -COVID 19 PCR negative -Still on IV abx -ID on board -Afebrile Problems reviewed: Yes Code(s): J18.9 - PNEUMONIA, UNSPECIFIED ORGANISM Qualifiers: Pneumonia type: due to unspecified organism Qualified Code(s): J18.9 - Pneumonia, unspecified organism (7) Troponin I above reference range Assessment/Plan: -2/2 to sepsis and demand ischemia -ICU monitoring -Cardiology consult Problems reviewed: Yes Code(s): R79.89 - OTHER SPECIFIED ABNORMAL FINDINGS OF BLOOD CHEMISTRY (8) HTN (hypertension) Assessment/Plan: -Increase Losartan to 50 mg daily -Titrate meds to meet goal <140/90 mmHg Problems reviewed: Yes Code(s): I10 - ESSENTIAL (PRIMARY) HYPERTENSION (9) CHF (congestive heart failure) Assessment/Plan: -Continue BB + ARB Problems reviewed: Yes Code(s): I50.9 - HEART FAILURE, UNSPECIFIED Qualifiers: Heart failure type: unspecified Heart failure chronicity: unspecified Qualified Code(s): I50.9 - Heart failure, unspecified (10) Elevated liver enzymes Assessment/Plan: -likely 2/2 to congestive hepatopathy vs suspected amyloidosis -Trending down -Avoid hepatotoxic drugs Problems reviewed: Yes Code(s): R74.8 - ABNORMAL LEVELS OF OTHER SERUM ENZYMES Assessment/Plan See problem list D/C germain for voiding trail Awaiting bladder scan
[2020-06-02] MEDS ORDERED: MEROPENEM 1 GM VIAL (RESTRICTED TO ID) IVPB ONE ×3 (09:43→23:16)
[2020-06-02] MEDS ORDERED: DEXTROSE 5%-WATER 100 ML IVPB ONE ×2 (09:43→23:16)
[2020-06-02] MEDS: LOSARTAN POTASSIUM 50 MG TABLET (FP) PO SCH (09:46)
[2020-06-02] MEDS: PANTOPRAZOLE SODIUM 40 MG VIAL IVPUSH SCH (09:46)
[2020-06-02] MEDS: MEROPENEM 1 GM in DEXTROSE 5%-WATER 100 ML IVPB SCH ×2 (09:46→23:25)
[2020-06-02] MEDS: HEPARIN NA (PORCINE) 5,000 UNITS/ML 1ML VIAL SQ SCH ×2 (09:47→23:26)
[2020-06-02] MEDS: FERROUS SO4 325 MG TABLET (FP) PO SCH ×2 (09:47→23:28)
[2020-06-02] MEDS: METOPROLOL TARTRATE 25 MG TABLET (FP) PO SCH ×2 (09:49→23:27)
--- NOTE | 2020-06-02 10:30 | PN ---
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 foot, Chronic osteomyelitis of right foot, Diabetic neuropathy, Left leg below knee amputation, OA, Iron deficiency anemia, HLD, HTN, Charcot's joint, ESBL re sistance and who presents to the ED from [facility] for evaluation of hypoxia and AMS. The patient was previously discharged on 05/23 after having been treated for G(-) Bacteremia. History Source: Patient - Current Medication List Current Medications: Active Medications Acetaminophen (Tylenol Oral Solution -) 650 mg PO Q4H PRN PRN Reason: PAIN Collagenase (Santyl -) 1 applic TP DAILY [facility]; Protocol Last Admin: 06/01/20 11:03 Dose: 1 appful Documented by: Ferrous Sulfate (Feosol -) 325 mg PO BID [facility] Last Admin: 06/02/20 09:47 Dose: 325 mg Documented by: Heparin Sodium (Porcine) (Heparin -) 5,000 unit SQ BID [facility] Last Admin: 06/02/20 09:47 Dose: 5,000 unit Documented by: Hydralazine HCl (Apresoline Injection -) 10 mg IVPUSH Q6H PRN PRN Reason: HYPERTENSION Meropenem 1 gm/ Dextrose 100 mls @ 200 mls/hr IVPB Q12H [facility] Last Admin: 06/02/20 09:46 Dose: 200 mls/hr Documented by: Insulin Aspart (Novolog Vial Sliding Scale -) 1 vial SQ TID [facility]; Protocol Last Admin: 06/02/20 06:02 Dose: 6 units Documented by: Losartan Potassium (Cozaar -) 50 mg PO DAILY [facility] Last Admin: 06/02/20 09:46 Dose: 50 mg Documented by: Metoprolol Tartrate (Lopressor -) 25 mg PO BID [facility] Last Admin: 06/02/20 09:49 Dose: 25 mg Documented by: Pantoprazole Sodium (Protonix Iv) 40 mg IVPUSH DAILY [facility] Last Admin: 06/02/20 09:46 Dose: 40 mg Documented by: - Objective Vital Signs: Vital Signs Temperature 98.2 F 06/02/20 06:00 Pulse Rate 79 06/02/20 06:00 Respiratory Rate 17 06/02/20 06:00 Blood Pressure 167/99 06/02/20 06:00 O2 Sat by Pulse Oximetry (%) 94 L 06/02/20 06:00 Eyes: Yes: WNL, Conjunctiva Clear, EOM Intact HENT: Yes: WNL, Atraumatic, Normocephalic Neck: Yes: WNL, Supple, Trachea Midline Cardiovascular: Yes: WNL, Regular Rate and Rhythm Respiratory: Yes: WNL, Regular, CTA Bilaterally Gastrointestinal: Yes: WNL, Normal Bowel Sounds Genitourinary: Yes: WNL Musculoskeletal: Yes: WNL Extremities: Yes: Amputation Edema: No Integumentary: Yes: WNL Neurological: Yes: WNL, Alert, Oriented ...Motor Strength: WNL Psychiatric: Yes: WNL Labs: CBC, BMP 06/01/20 06:46 06/01/20 06:46 INR, PTT INR 1.58 (0.83-1.09) H 05/27/20 05:30 Fibrinogen 298.0 mg/dL (238-498) 05/26/20 05:16 Problem List - Problems (1) Diabetic foot ulcer Code(s): E11.621 - TYPE 2 DIABETES MELLITUS WITH FOOT ULCER; L97.509 - NON- PRESSURE CHRONIC ULCER OTH PRT UNSP FOOT W UNSP SEVERITY Qualifiers: Diabetes mellitus type: type 1 Laterality: right (2) Sepsis Code(s): A41.9 - SEPSIS, UNSPECIFIED ORGANISM (3) Septic shock Code(s): A41.9 - SEPSIS, UNSPECIFIED ORGANISM; R65.21 - SEVERE SEPSIS WITH SEPTIC SHOCK (4) Acute on chronic renal failure Code(s): N17.9 - ACUTE KIDNEY FAILURE, UNSPECIFIED; N18.9 - CHRONIC KIDNEY DISEASE, UNSPECIFIED Qualifiers: Acute renal failure type: unspecified Chronic kidney disease stage: unspecified stage Qualified Code(s): N17.9 - Acute kidney failure, unspecified; N18.9 - Chronic kidney disease, unspecified (5) Amyloid disease Code(s): E85.9 - AMYLOIDOSIS, UNSPECIFIED (6) Anemia Code(s): D64.9 - ANEMIA, UNSPECIFIED (7) Bacteremia Code(s): R78.81 - BACTEREMIA (8) CHF (congestive heart failure) Code(s): I50.9 - HEART FAILURE, UNSPECIFIED Qualifiers: Heart failure type: unspecified Heart failure chronicity: unspecified Qualified Code(s): I50.9 - Heart failure, unspecified (9) Elevated liver enzymes Code(s): R74.8 - ABNORMAL LEVELS OF OTHER SERUM ENZYMES (10) Pleural effusion Code(s): J90 - PLEURAL EFFUSION, NOT ELSEWHERE CLASSIFIED (11) Right lower lobe pneumonia Code(s): J18.9 - PNEUMONIA, UNSPECIFIED ORGANISM Qualifiers: Pneumonia type: due to unspecified organism Qualified Code(s): J18.9 - Pneumonia, unspecified organism (12) Troponin I above reference range Code(s): R79.89 - OTHER SPECIFIED ABNORMAL FINDINGS OF BLOOD CHEMISTRY Assessment/Plan 70 yr old black woman with PMHx low-normal systolic, diastolic CHF, ?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 foot, Chronic osteomyelitis of right foot, Diabetic neuropathy, Left leg below knee amputation, renal dysfunction, OA, Iron deficiency anemia, HLD, HTN, ESBL resistance, who presents to the ED from [facility] for evaluation of hypoxia and AMS requiring intubation after recent admission for CHF. Suspected multilobar pnemonia and sepsis. Now more lethargic. 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 On diuretics. Hydralazine may be used if BP refractory. 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 Amyloidosis w/u at [facility] Heart Failure Clinic pending. Consider further w/u for lethargy if change persists.
--- NOTE | 2020-06-02 10:52 | PN ---
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 - Note 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: Selected Entries 05/21/20 05/27/20 05/27/20 10:00 05:34 14:15 Breakfast Diet Tolerated Well Intake, Oral Amount Temperature Pulse Rate Blood Pressure O2 Sat by Pulse Oximetry (%) Oxygen Delivery Method Fraction of Inspired Oxygen (FIO2) Weight 181 lb 7.047 oz 181 lb 05/28/20 05/28/20 05/28/20 00:00 00:09 01:00 Breakfast Diet Tolerated Intake, Oral Amount Temperature Pulse Rate Blood Pressure O2 Sat by Pulse 100 99 100 Oximetry (%) Oxygen Delivery Method Fraction of 50 Inspired Oxygen (FIO2) Weight 05/28/20 05/28/20 05/28/20 02:00 03:00 04:00 Breakfast Diet Tolerated Intake, Oral Amount Temperature Pulse Rate Blood Pressure O2 Sat by Pulse 99 99 97 Oximetry (%) Oxygen Delivery Method Fraction of Inspired Oxygen (FIO2) Weight 05/28/20 05/28/20 05/28/20 04:09 05:00 06:00 Breakfast Diet Tolerated Intake, Oral Amount Temperature Pulse Rate Blood Pressure O2 Sat by Pulse 99 107 H Oximetry (%) Oxygen Delivery Method Fraction of 50 Inspired Oxygen (FIO2) Weight 05/28/20 05/28/20 05/28/20 08:00 08:22 09:00 Breakfast Diet Tolerated Intake, Oral Amount Temperature Pulse Rate Blood Pressure O2 Sat by Pulse 100 99 99 Oximetry (%) Oxygen Delivery Mechanical Mechanical Method Ventilator Ventilator Fraction of 50 50 Inspired Oxygen (FIO2) Weight 05/28/20 05/28/20 05/28/20 10:00 12:00 12:06 Breakfast Diet Tolerated Intake, Oral Amount Temperature Pulse Rate Blood Pressure O2 Sat by Pulse 99 97 97 Oximetry (%) Oxygen Delivery Mechanical Method Ventilator Fraction of 50 40 Inspired Oxygen (FIO2) Weight 05/28/20 05/28/20 05/28/20 12:13 14:00 16:00 Breakfast Diet Tolerated Intake, Oral Amount Temperature Pulse Rate Blood Pressure O2 Sat by Pulse 97 97 98 Oximetry (%) Oxygen Delivery Mechanical Method Ventilator Fraction of 40 40 Inspired Oxygen (FIO2) Weight 05/28/20 05/28/20 05/28/20 18:00 21:00 21:19 Breakfast Diet Tolerated Intake, Oral Amount Temperature Pulse Rate Blood Pressure O2 Sat by Pulse 98 100 100 Oximetry (%) Oxygen Delivery Method Fraction of 40 Inspired Oxygen (FIO2) Weight 05/28/20 05/28/20 05/30/20 22:00 23:00 08:00 Breakfast Diet Tolerated Intake, Oral Amount Temperature Pulse Rate Blood Pressure O2 Sat by Pulse 100 100 98 Oximetry (%) Oxygen Delivery Method Fraction of Inspired Oxygen (FIO2) Weight 05/30/20 05/30/20 05/30/20 09:00 10:00 12:00 Breakfast Diet Tolerated Intake, Oral Amount Temperature Pulse Rate Blood Pressure O2 Sat by Pulse 97 97 98 Oximetry (%) Oxygen Delivery Nasal Cannula Method Fraction of Inspired Oxygen (FIO2) Weight 05/30/20 05/30/20 05/30/20 14:00 16:00 18:00 Breakfast Diet Tolerated Intake, Oral Amount Temperature Pulse Rate Blood Pressure O2 Sat by Pulse 100 98 98 Oximetry (%) Oxygen Delivery Method Fraction of Inspired Oxygen (FIO2) Weight 05/30/20 05/30/20 05/31/20 20:00 22:00 00:00 Breakfast Diet Tolerated Intake, Oral Amount Temperature Pulse Rate 75 Blood Pressure 170/94 O2 Sat by Pulse 98 99 98 Oximetry (%) Oxygen Delivery Nasal Cannula Method Fraction of Inspired Oxygen (FIO2) Weight 05/31/20 05/31/20 05/31/20 02:10 04:00 06:00 Breakfast Diet Tolerated Intake, Oral 50 Amount Temperature Pulse Rate 79 76 86 Blood Pressure 153/101 H 150/82 174/94 H O2 Sat by Pulse 99 98 94 L Oximetry (%) Oxygen Delivery Method Fraction of Inspired Oxygen (FIO2) Weight 172 lb 9.951 oz 05/31/20 05/31/20 05/31/20 07:45 10:00 12:00 Breakfast Diet Tolerated Intake, Oral Amount Temperature 97.8 F 97.8 F Pulse Rate 84 86 88 Blood Pressure 154/87 171/100 H 188/99 H O2 Sat by Pulse 94 L Oximetry (%) Oxygen Delivery Method Fraction of Inspired Oxygen (FIO2) Weight 05/31/20 05/31/20 05/31/20 14:00 16:00 18:00 Breakfast Diet Tolerated Intake, Oral Amount Temperature 98 F 98 F Pulse Rate 78 102 H 104 H Blood Pressure 175/99 H 157/73 147/70 O2 Sat by Pulse Oximetry (%) Oxygen Delivery Method Fraction of Inspired Oxygen (FIO2) Weight 05/31/20 05/31/20 06/01/20 23:56 23:57 01:43 Breakfast Diet Tolerated Intake, Oral Amount Temperature 97.8 F 97.8 F 97.7 F Pulse Rate 90 90 85 Blood Pressure 180/101 H 180/101 H 178/114 H O2 Sat by Pulse Oximetry (%) Oxygen Delivery Method Fraction of Inspired Oxygen (FIO2) Weight 06/01/20 06/01/20 06/01/20 02:30 06:00 08:51 Breakfast NPO Diet Tolerated Intake, Oral Amount Temperature 98.6 F Pulse Rate 83 85 Blood Pressure 161/81 142/79 O2 Sat by Pulse Oximetry (%) Oxygen Delivery Method Fraction of Inspired Oxygen (FIO2) Weight Laboratory Tests 05/11/20 05/12/20 05/25/20 16:20 08:00 09:40 WBC Sodium POC Glucometer COVID-19 ([facility]) Not detected Not detected Hepatitis A Ab Total Positive H 05/28/20 05/29/20 05/30/20 06:00 06:10 09:00 WBC 11.6 H 9.2 9.8 Sodium POC Glucometer COVID-19 ([facility]) Hepatitis A Ab Total 05/31/20 05/31/20 06/01/20 05:15 05:45 06:46 WBC 10.4 H 9.2 Sodium POC Glucometer 158 COVID-19 ([facility]) Hepatitis A Ab Total 06/01/20 06:46 WBC Sodium 147 H POC Glucometer COVID-19 ([facility]) Hepatitis A Ab Total Selected Entries 06/01/20 06/01/20 06/02/20 14:50 18:00 05:31 Breakfast Diet Tolerated Fair Lunch 75% Supper 75% Temperature Pulse Rate Blood Pressure 06/02/20 06/02/20 06:00 10:24 Breakfast 75% Diet Tolerated Fair Lunch Supper Temperature 98.2 F Pulse Rate 79 Blood Pressure 167/99 Laboratory Tests 05/31/20 06/01/20 05:45 06:46 WBC 10.4 H 9.2 Puree/nectar ordered, tolerated and good appetite.Confused Assessed for possible upgrade. Throat clearing wqith thin liquid. Dysarthric, hypernasal. Mastication deemed to be unsafe at this time. Aspiration precautions Monitor tolerance Continue puree/nectar MBS if cough,congestion,fever
[2020-06-02] MEDS ORDERED: FAMOTIDINE 20 MG TABLET PO SCH (11:30)
--- NOTE | 2020-06-02 11:58 | PN ---
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, Physician History of Present Illness: PULMONARY SOMNOLENT,AROUSABLE,-RESP DISTRESS ON NASAL O2 - Current Medication List Current Medications: Active Medications Acetaminophen (Tylenol Oral Solution -) 650 mg PO Q4H PRN PRN Reason: PAIN Collagenase (Santyl -) 1 applic TP DAILY [facility]; Protocol Last Admin: 06/01/20 11:03 Dose: 1 appful Documented by: Famotidine (Pepcid -) 20 mg PO DAILY [facility] Ferrous Sulfate (Feosol -) 325 mg PO BID [facility] Last Admin: 06/02/20 09:47 Dose: 325 mg Documented by: Heparin Sodium (Porcine) (Heparin -) 5,000 unit SQ BID [facility] Last Admin: 06/02/20 09:47 Dose: 5,000 unit Documented by: Meropenem 1 gm/ Dextrose 100 mls @ 200 mls/hr IVPB Q12H [facility] Last Admin: 06/02/20 09:46 Dose: 200 mls/hr Documented by: Insulin Aspart (Novolog Vial Sliding Scale -) 1 vial SQ TID [facility]; Protocol Last Admin: 06/02/20 06:02 Dose: 6 units Documented by: Losartan Potassium (Cozaar -) 100 mg PO DAILY [facility] Metoprolol Tartrate (Lopressor -) 25 mg PO BID [facility] Last Admin: 06/02/20 09:49 Dose: 25 mg Documented by: - Objective Vital Signs: Vital Signs Temperature 97.7 F 06/02/20 10:00 Pulse Rate 82 06/02/20 10:00 Respiratory Rate 19 06/02/20 10:00 Blood Pressure 190/112 H 06/02/20 10:00 O2 Sat by Pulse Oximetry (%) 94 L 06/02/20 10:00 Constitutional: Yes: Well Nourished Eyes: Yes: WNL HENT: Yes: WNL Neck: Yes: WNL Cardiovascular: Yes: Regular Rate and Rhythm, S1, S2 Respiratory: Yes: CTA Bilaterally Gastrointestinal: Yes: Normal Bowel Sounds, Soft Extremities: Yes: Amputation (LEFT BKA) Edema: No Labs: CBC, BMP 06/01/20 06:4 Assessment/Plan ASSESSMENT AND PLAN: Acute Hypoxic Respiratory Failure improved Pneumonia UTI LV Diastolic Dysfunction Suspected Amyloidosis +Troponins likely Demand Ischemia HTN DM Hyperlipidemia Anemia - continue antibiotics per ID - O2 to keep SpO2 >90% - aspiration precautions - PO as tolerated - DVT prophylaxis - chest x-ray DR LEAL
[2020-06-02] MEDS: COLLAGENASE CLOSTRIDIUM HIST. 30 GRAMS TUBE TP SCH (12:18)
[2020-06-02] MEDS ORDERED: TAMSULOSIN HCL 0.4 MG CAP PO SCH (12:33)
[2020-06-02] MEDS ORDERED: SODIUM CHLORIDE 1,000 ML IV SCH (18:00)
--- NOTE | 2020-06-02 18:55 | RAPID ---
Physical Examination Vital Signs: Rapid response paged overhead, pulmonary function technologist team responded immediately. Vital Signs Temperature 97.6 F 06/02/20 16:33 Pulse Rate 80 06/02/20 16:33 Respiratory Rate 17 06/02/20 16:33 Blood Pressure 146/81 06/02/20 16:33 O2 Sat by Pulse Oximetry (%) 96 06/02/20 16:33 PE: GEN: Alert. Unable to assess orientation. Nonverbal. HEENT: Right sided lower facial droop noted, flattened nasolabial fold. Pulm: CTABL CV: S1S2 no murmurs noted Abd: Soft ntnd +BS Neuro: 1/5 motor strength RUE and 0/5 motor strength RLE. 5/5 motor strength LUE and LLE. Unable to assess sensation. Repeat physical exam performed 1 hour later post-head CT: Gen: patient becoming verbal with short sentences, aphasic speech Neuro: RUE motor strength 4/5, RLE strength 4/5. Left extremities remain 5/5 strength. Patient endorsing sensation to all extremities. A/P: #r/o CVA -Code vásquez called overhead -stat CT head and CTA head; f/u read, assess need for tpa -Neurology Dr. Mccall consulted and aware -CBC, CMP, Mg, Phos -EKG ordered -Fingerstick 321 -mental status improving, continue neuro checks -aspiration, fall precautions -family notified (daughter) Labs: CBC, BMP 06/01/20 06:46 06/01/20 06:46
[2020-06-02] MEDS ORDERED: ASPIRIN COATED 81 MG TABLET.EC PO SCH (19:15)
--- NOTE | 2020-06-02 19:27 | PN.NIHSS ---
NIH Stroke Scale - Initial Evaluation Level of consciousness: Alert Ask patient the month and their age: Both incorrect Ask patient to open & close eyes; make fist and let go: Both incorrect Best gaze (horizontal eye movement): Normal Visual field testing: No visual field loss Facial paresis (Show teeth/raise eyebrows/close eyes tight): Partial paralysis (total or near paralysis of lower face) Motor Function: Left Arm: Normal Motor Function: Right Arm: No effort against gravity Motor Function: Left Leg: Normal (extends leg 30 degrees for 5 seconds without drift) Motor Function: Right Leg: No effort against gravity Limb Ataxia: Present in two limbs Sensory(Use pinprick test arms,legs,trunk,face/side to side): Mild to moderate decrease in sensation Best language (Describe picture, name items, read sentences): Mute Dysarthria (read several words): Near unintelligible or unable to speak
[2020-06-02] MEDS ORDERED: ASPIRIN 325 MG TABLET PO STA (19:30)
[2020-06-02 21:05] LABS: BASO % 0.4 % (0-2.0); EOS % 0.7 % (0-4.5); HEMATOCRIT 29.9 % (32.4-45.2); HEMOGLOBIN 9.6 GM/dL (10.7-15.3); LYMPH % 7.3 % (8-40); MCH 27.5 pg (25.7-33.7); MCHC 32.1 g/dl (32.0-36.0); MEAN CELL VOLUME 85.8 fl (80-96); MEAN PLT VOLUME 9.3 fl (7.5-11.1); MONO % 8.6 % (3.8-10.2); PLATELET COUNT 269 K/MM3 (134-434); RBC 3.48 M/mm3 (3.60-5.2); RDW 19.9 % (11.6-15.6)
[2020-06-02 21:13] LABS: INR 1.17 (0.83-1.09); PROTHROMBIN TIME (PATIENT) 13.8 SEC (9.7-13.0)
[2020-06-02 21:16] LABS: ACTIVATED PTT 22.4 SECONDS (25.2-36.5)
[2020-06-02 21:32] LABS: CHOLESTEROL 176 mg/dL (50-200); HDL CHOLESTEROL 53 mg/dL (40-60); LDL CHOLESTEROL (ONLY SJRH) 102 mg/dL (5-100); TRIGLYCERIDES 102 mg/dL (0-150)
[2020-06-02 21:33] LABS: ALBUMIN 2.4 g/dl (3.4-5.0); BILIRUBIN,TOTAL 0.7 mg/dL (0.2-1); BLOOD UREA NITROGEN 25.8 mg/dL (7-18); CALCIUM 9.3 mg/dL (8.5-10.1); CREATININE 1.2 mg/dL (0.55-1.3); MAGNESIUM 2.2 mg/dL (1.8-2.4); PHOSPHOROUS 2.7 mg/dL (2.5-4.9); POTASSIUM 3.6 mmol/L (3.5-5.1); TOT PROT 8.3 g/dl (6.4-8.2)
[2020-06-02] MEDS: ATORVASTATIN CA 20 MG TABLET (FP) PO SCH (23:27)
--- NOTE | 2020-06-03 00:22 | HOSP ---
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
[2020-06-03] MEDS ORDERED: ACETAMINOPHEN 650 MG/20.3 ML ORAL SOLUTION (CUPS) PO PRN (00:33)
[2020-06-03] MEDS: SODIUM CHLORIDE 1,000 ML IV SCH ×2 (06:11→22:10)
[2020-06-03] MEDS: INSULIN SLIDING SCALE (NOVOLOG) 1 VIAL SQ SCH ×2 (06:20→13:59)
--- NOTE | 2020-06-03 07:46 | PN ---
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, Physician History of Present Illness: pulmonary awake,comfortable,pt transferred to telemetry secondary to mri findings +multiple small acute cva's - Current Medication List Current Medications: Active Medications Acetaminophen (Tylenol Oral Solution -) 650 mg PO Q4H PRN PRN Reason: PAIN 1-3 Aspirin (Ecotrin -) 81 mg PO DAILY [facility] Atorvastatin Calcium (Lipitor -) 20 mg PO HS [facility] Last Admin: 06/02/20 23:27 Dose: 20 mg Documented by: Collagenase (Santyl -) 1 applic TP DAILY [facility]; Protocol Famotidine (Pepcid -) 20 mg PO DAILY [facility] Ferrous Sulfate (Feosol -) 325 mg PO BID [facility] Heparin Sodium (Porcine) (Heparin -) 5,000 unit SQ BID [facility] Meropenem 1 gm/ Dextrose 100 mls @ 200 mls/hr IVPB Q12H [facility] Sodium Chloride (Normal Saline -) 1,000 mls @ 42 mls/hr IV ASDIR [facility] Last Admin: 06/03/20 06:11 Dose: Not Given Documented by: Insulin Aspart (Novolog Vial Sliding Scale -) 1 vial SQ TID [facility]; Protocol Last Admin: 06/03/20 06:20 Dose: 4 units Documented by: Losartan Potassium (Cozaar -) 100 mg PO DAILY [facility] Metoprolol Tartrate (Lopressor -) 25 mg PO BID [facility] Tamsulosin HCl (Flomax -) 0.4 mg PO DAILY@0830 [facility] - Objective Vital Signs: Vital Signs Temperature 97.7 F 06/03/20 05:32 Pulse Rate 79 06/03/20 05:32 Respiratory Rate 18 06/03/20 05:32 Blood Pressure 155/92 06/03/20 05:32 O2 Sat by Pulse Oximetry (%) 97 06/03/20 05:32 Constitutional: Yes: Well Nourished, Calm Eyes: Yes: WNL HENT: Yes: WNL Neck: Yes: WNL Cardiovascular: Yes: Regular Rate and Rhythm, S1, S2 Respiratory: Yes: Diminished Gastrointestinal: Yes: Normal Bowel Sounds, Soft Extremities: Yes: Amputation (left bka) Edema: No Labs: CBC, BMP Assessment/Plan ASSESSMENT AND PLAN: Acute Hypoxic Respiratory Failure improved Pneumonia UTI LV Diastolic Dysfunction Suspected Amyloidosis +Troponins likely Demand Ischemia HTN DM Hyperlipidemia Anemia Multiple small acute cva's - continue antibiotics per ID - O2 to keep SpO2 >90% - aspiration precautions - PO as tolerated - DVT prophylaxis - w/u as per neuro DR LEAL
[2020-06-03] MEDS ORDERED: MEROPENEM 1 GM VIAL (RESTRICTED TO ID) IVPB ONE ×2 (08:36→19:32)
[2020-06-03] MEDS ORDERED: DEXTROSE 5%-WATER 100 ML IVPB ONE ×2 (08:37→19:33)
--- NOTE | 2020-06-03 08:50 | CONSULT ---
Consult - text type - Consultation Consultation Note: Neurology - Admission Chief Complaint: Facial droop, RUE weakness History of Present Illness: 70 year old female with a significant PMHx of Uncontrolled DM, Diabetic foot ulcer on R. foot, Chronic osteomyelitis of right foot, Diabetic neuropathy, Left leg below knee amputation, OA, Iron deficiency anemia, HLD, HTN, Charcot's joint, ESBL resistance and CHF who presents to the ED from [facility] for evaluation of hypoxia and AMS. The patient was previously discharged on 05/23 after having been treated for G(-) Bacteremia. Patient has been getting medical/infectious management. I was contacted 06/02 but Resident indicating that patient had right facial droop along with right upper extremity weakness and confusion. Patient symptoms improved and TPA not given. Advised noncontrast head CT which was without acute changes as well as CTA of the head to confirm no large vessel occlusion and was also negative. Advised to give aspirin 325 mg on 06/02 and start 81 mg daily as of 06/03. Recommended stroke work up including MRI brain which was completed overnight and showed area of bilateral infarcts, suspicious for embolic phenomenon. ADvised Tele monitoring, carotid doppler, echo. - Past Medical History Cardiovascular: Yes: HTN, Hyperlipdemia ...: No Endocrine: Yes: Diabetes Mellitus (DM II) - Smoking History Smoking history: Never smoked Have you smoked in the past 12 months: No - Alcohol/Substance Use Hx Alcohol Use: No History of Substance Use: reports: None - Social History ADL: Support Services History of Recent Travel: No ([place]) FAMILY: HTN Home Medications - Allergies Allergies/Adverse Reactions: Allergies Allergy/AdvReac Type Severity Reaction Status Date / Time No Known Allergies Allergy Verified 05/25/20 10:04 - Home Medications Home Medications: Ambulatory Orders Aspirin 81 mg PO DAILY 05/11/20 Atorvastatin Ca [Lipitor] 80 mg PO HS 05/11/20 Gabapentin 100 mg PO QID 05/11/20 Gabapentin 300 mg PO HS 05/11/20 Losartan Potassium 25 mg PO DAILY 05/11/20 Sennosides [Senno] 17.2 mg PO HS 05/11/20 Torsemide [Demadex -] 80 mg PO DAILY@0600 tablet 05/21/20 Chlorhexidine Gluconate [Hibiclens For Decolonization -] 1 applic TP DAILY 05/25/20 Glucagon - 1 mg IJ PRN 05/25/20 Insulin Glargine,Hum.rec.anlog [Basaglar Kwikpen U-100] 17 unit SQ HS 05/25/20 Insulin Lispro [Admelog Solostar] 7 unit SQ AC 05/25/20 Metoprolol Tartrate [Lopressor -] 50 mg PO DAILY 05/25/20 Polyethylene Glycol 3350 [Glycolax] 17 gm PO DAILY PRN 05/25/20 Review of Systems Unable to obtain ROS, reason: Clinical condition Physical Examination Vital Signs Period Temp Pulse Resp BP Sys/Dobson Pulse Ox Last 24 Hr 97.4 F-98.8 F 78-85 16-20 120-190/81-115 94-98 Constitutional: Yes: Well Nourished, No Distress, Calm Cardiovascular: Yes: Regular Rate and Rhythm Respiratory: Yes: Mechanically Ventilated, Rhonchi (diffuse) Gastrointestinal: Yes: Soft, Hypoactive Bowel Sounds Renal/: Yes: Lynn Present Edema: No Peripheral Pulses WNL: Yes Neurological: AWake, right facial weakness minimal, RUE 5-/5, sensory intact, gait deferred Labs: CBCD WBC 7.0 K/mm3 (4.0-10.0) 06/02/20 20:00 RBC 3.48 M/mm3 (3.60-5.2) L 06/02/20 20:00 Hgb 9.6 GM/dL (10.7-15.3) L 06/02/20 20:00 Hct 29.9 % (32.4-45.2) L 06/02/20 20:00 MCV 85.8 fl (80-96) 06/02/20 20:00 MCHC 32.1 g/dl (32.0-36.0) 06/02/20 20:00 RDW 19.9 % (11.6-15.6) H 06/02/20 20:00 Plt Count 269 K/MM3 (134-434) 06/02/20 20:00 MPV 9.3 fl (7.5-11.1) 06/02/20 20:00 CMP Sodium 148 mmol/L (136-145) H 06/02/20 20:00 Potassium 3.6 mmol/L (3.5-5.1) 06/02/20 20:00 Chloride 112 mmol/L (98-107) H 06/02/20 20:00 Carbon Dioxide 30 mmol/L (21-32) 06/02/20 20:00 Anion Gap 5 MMOL/L (8-16) L 06/02/20 20:00 BUN 25.8 mg/dL (7-18) H 06/02/20 20:00 Creatinine 1.2 mg/dL (0.55-1.3) 06/02/20 20:00 Calcium 9.3 mg/dL (8.5-10.1) 06/02/20 20:00 Total Bilirubin 0.7 mg/dL (0.2-1) 06/02/20 20:00 AST 30 U/L (15-37) 06/02/20 20:00 ALT 200 U/L (13-61) H 06/02/20 20:00 Alkaline Phosphatase 223 U/L (45-117) H 06/02/20 20:00 Total Protein 8.3 g/dl (6.4-8.2) H 06/02/20 20:00 Albumin 2.4 g/dl (3.4-5.0) L 06/02/20 20:00 Plan: 70 year old female with a significant PMHx of Uncontrolled DM, Diabetic foot ulcer on R. foot, Chronic osteomyelitis of right foot, Diabetic neuropathy, Left leg below knee amputation, OA, Iron deficiency anemia, HLD, HTN, Charcot's joint, ESBL resistance and CHF who presents to the ED from [facility] for evaluation of hypoxia and AMS. The patient was previously discharged on 05/23 after having been treated for G(-) Bacteremia. Patient has been getting medical/infectious management. I was contacted 06/02 but Resident indicating that patient had right facial droop along with right upper extremity weakness and confusion. Patient symptoms improved and TPA not given. Advised noncontrast head CT which was without acute changes as well as CTA of the head to confirm no large vessel occlusion and was also negative. Advised to give aspirin 325 mg on 06/02 and start 81 mg daily as of 06/03. Recommended stroke work up including MRI brain which was completed overnight and showed area of bilateral infarcts, suspicious for embolic phenomenon. ADvised Tele monitoring, carotid doppler, echo. COnitnue ID follow up and mgmt. Monitor bp, can allow up to 180/100 until this evening, then recommend < 160/100 overnight, <150/90 starting 06/04. Physical therapy as tolerated.
[2020-06-03] MEDS: LOSARTAN POTASSIUM 50 MG TABLET (FP) PO SCH (09:21)
[2020-06-03] MEDS: FERROUS SO4 325 MG TABLET (FP) PO SCH ×2 (09:21→22:08)
[2020-06-03] MEDS: METOPROLOL TARTRATE 25 MG TABLET (FP) PO SCH ×2 (09:21→22:08)
[2020-06-03] MEDS: FAMOTIDINE 20 MG TABLET PO SCH (09:21)
[2020-06-03] MEDS: TAMSULOSIN HCL 0.4 MG CAP PO SCH (09:21)
[2020-06-03] MEDS: MEROPENEM 1 GM in DEXTROSE 5%-WATER 100 ML IVPB SCH ×2 (09:22→22:09)
[2020-06-03] MEDS: HEPARIN NA (PORCINE) 5,000 UNITS/ML 1ML VIAL SQ SCH ×2 (09:22→22:14)
[2020-06-03] MEDS ORDERED: LOSARTAN POTASSIUM 50 MG TABLET (FP) PO SCH (10:00)
--- NOTE | 2020-06-03 11:19 | PN ---
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, GRAIN ROASTER - Note 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: Selected Entries 06/02/20 06/02/20 06/02/20 05:31 06:00 09:00 Breakfast Diet Tolerated Fair Lunch Temperature Pulse Rate Blood Pressure O2 Sat by Pulse 94 L 94 L Oximetry (%) Oxygen Delivery Nasal Cannula Method 06/02/20 06/02/20 06/02/20 10:00 10:24 15:09 Breakfast 75% Diet Tolerated Fair Fair Lunch 75% Temperature Pulse Rate Blood Pressure O2 Sat by Pulse 94 L 98 Oximetry (%) Oxygen Delivery Method 06/02/20 06/02/20 06/02/20 16:33 18:59 19:30 Breakfast Diet Tolerated Lunch Temperature Pulse Rate Blood Pressure O2 Sat by Pulse 96 96 96 Oximetry (%) Oxygen Delivery Method 06/02/20 06/02/20 06/02/20 20:00 21:00 22:55 Breakfast Diet Tolerated Lunch Temperature Pulse Rate Blood Pressure O2 Sat by Pulse 96 96 95 Oximetry (%) Oxygen Delivery Nasal Cannula Method 06/02/20 06/03/20 06/03/20 22:57 01:54 05:32 Breakfast Diet Tolerated Lunch Temperature 98.8 F 97.7 F Pulse Rate 80 79 Blood Pressure 162/90 155/92 O2 Sat by Pulse 95 95 97 Oximetry (%) Oxygen Delivery Method 06/03/20 06/03/20 09:00 11:10 Breakfast 50% Diet Tolerated Well Lunch Temperature 97.7 F Pulse Rate 80 Blood Pressure 152/93 O2 Sat by Pulse 97 Oximetry (%) Oxygen Delivery Method Laboratory Tests 06/02/20 20:00 WBC 7.0 Seen by be 06/02, Throat clearing with thin liquid. Dysarthric, hypernasal. Mastication deemed to be unsafe at this time. Aspiration precautions Monitor tolerance Continue puree/nectar MBS if cough,congestion,fever Later on 06/02, per nursing report, patient was noted to be more drowsy and not able to speak, Rapid response called, Patient sent to CT Scan for CT of the head, which was negative. MRI brain which was completed overnight and showed area of bilateral infarcts, suspicious for embolic phenomenon. Neurology advised Tele monitoring, carotid doppler, echo Puree/thin liquid ordered awake, groggy, slow to respond. Not as dysarthric or hypernasal as yesterday but limited verbalizations BP was 186/105, taken by EVALUATION SPECIALIST while I was present Suggest puree,nectar thick
[2020-06-03] MEDS: COLLAGENASE CLOSTRIDIUM HIST. 30 GRAMS TUBE TP SCH (11:35)
--- NOTE | 2020-06-03 12:21 | PN ---
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, Physician Chief Complaint: Sepsis History of Present Illness: Seen and examined at the bedside awake but remians groggy MRI of the head showed small acute strokes pt offers no complaints making urine on IVF. - Current Medication List Current Medications: Active Medications Acetaminophen (Tylenol Oral Solution -) 650 mg PO Q4H PRN PRN Reason: PAIN 1-3 Aspirin (Ecotrin -) 81 mg PO DAILY [facility] Atorvastatin Calcium (Lipitor -) 20 mg PO HS [facility] Last Admin: 06/02/20 23:27 Dose: 20 mg Documented by: Collagenase (Santyl -) 1 applic TP DAILY [facility]; Protocol Last Admin: 06/03/20 11:35 Dose: 1 applic Documented by: Famotidine (Pepcid -) 20 mg PO DAILY [facility] Last Admin: 06/03/20 09:21 Dose: 20 mg Documented by: Ferrous Sulfate (Feosol -) 325 mg PO BID [facility] Last Admin: 06/03/20 09:21 Dose: 325 mg Documented by: Heparin Sodium (Porcine) (Heparin -) 5,000 unit SQ BID [facility] Last Admin: 06/03/20 09:22 Dose: 5,000 unit Documented by: Meropenem 1 gm/ Dextrose 100 mls @ 200 mls/hr IVPB Q12H [facility] Last Admin: 06/03/20 09:22 Dose: 200 mls/hr Documented by: Sodium Chloride (Normal Saline -) 1,000 mls @ 42 mls/hr IV ASDIR [facility] Last Admin: 06/03/20 06:11 Dose: Not Given Documented by: Insulin Aspart (Novolog Vial Sliding Scale -) 1 vial SQ TID [facility]; Protocol Last Admin: 06/03/20 06:20 Dose: 4 units Documented by: Losartan Potassium (Cozaar -) 100 mg PO DAILY [facility] Last Admin: 06/03/20 09:21 Dose: 100 mg Documented by: Metoprolol Tartrate (Lopressor -) 25 mg PO BID [facility] Last Admin: 06/03/20 09:21 Dose: 25 mg Documented by: Tamsulosin HCl (Flomax -) 0.4 mg PO DAILY@0830 [facility] Last Admin: 06/03/20 09:21 Dose: 0.4 mg Documented by: - Objective Vital Signs: Vital Signs Temperature 97.7 F 06/03/20 09:00 Pulse Rate 80 06/03/20 09:00 Respiratory Rate 18 06/03/20 09:00 Blood Pressure 152/93 06/03/20 09:00 O2 Sat by Pulse Oximetry (%) 97 06/03/20 09:00 Constitutional: Yes: No Distress, Calm HENT: Yes: Atraumatic Neck: Yes: Supple Respiratory: Yes: Regular Gastrointestinal: Yes: Soft Extremities: Yes: Amputation. No: Cyanosis Edema: Yes Neurological: Yes: Alert Labs: CBC, BMP 06/02/20 20:00 06/02/20 20:00 INR, PTT INR 1.17 (0.83-1.09) H 06/02/20 20:00 Fibrinogen 298.0 mg/dL (238-498) 05/26/20 05:16 Assessment/Plan 70 year old woman with history of systolic heart failure, CKD with baseline Cr of 1.4, DM, Chronic osteomylitis who presented form the NH with respiratory distress and found to have respiratory failure requiring intubation with acute kidney injury. 1. Acute respiratory failure secondary to suspected pneumonia 2. Sepsis from UTI vs. PNA 3. Lactic acidosis in setting of sepsis 4. Acute on chronic renal insufficiency secondary to sepsis/renal hypoprofusion 5. Hx of CHF/Pleural effusions 6. Elevated troponins 7. Hyperkalemia 8. Acute CVA seen on MRI. Renal function and electrolytes are within normal limits on Gentle IVF currently, monitor volume status closely. PRN Lasix if needed Continue ASA and statin as per neurology. BP parameters as per neurology. Trend renal function and electrolytes daily. Thank you Will follow Joaquín Berry DO
[2020-06-03] MEDS: amLODIPine BESYLATE 10 MG TABLET (FP) PO SCH (13:54)
--- NOTE | 2020-06-03 14:06 | PN ---
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, Physician - Current Medication List Current Medications: Active Medications Acetaminophen (Tylenol Oral Solution -) 650 mg PO Q4H PRN PRN Reason: PAIN 1-3 Amlodipine Besylate (Norvasc -) 10 mg PO DAILY [facility] Last Admin: 06/03/20 13:54 Dose: 10 mg Documented by: Aspirin (Ecotrin -) 81 mg PO DAILY [facility] Atorvastatin Calcium (Lipitor -) 20 mg PO HS [facility] Last Admin: 06/02/20 23:27 Dose: 20 mg Documented by: Collagenase (Santyl -) 1 applic TP DAILY [facility]; Protocol Last Admin: 06/03/20 11:35 Dose: 1 applic Documented by: Famotidine (Pepcid -) 20 mg PO DAILY [facility] Last Admin: 06/03/20 09:21 Dose: 20 mg Documented by: Ferrous Sulfate (Feosol -) 325 mg PO BID [facility] Last Admin: 06/03/20 09:21 Dose: 325 mg Documented by: Heparin Sodium (Porcine) (Heparin -) 5,000 unit SQ BID [facility] Last Admin: 06/03/20 09:22 Dose: 5,000 unit Documented by: Meropenem 1 gm/ Dextrose 100 mls @ 200 mls/hr IVPB Q12H [facility] Last Admin: 06/03/20 09:22 Dose: 200 mls/hr Documented by: Sodium Chloride (Normal Saline -) 1,000 mls @ 42 mls/hr IV ASDIR [facility] Last Admin: 06/03/20 06:11 Dose: Not Given Documented by: Insulin Aspart (Novolog Vial Sliding Scale -) 1 vial SQ TID [facility]; Protocol Last Admin: 06/03/20 13:59 Dose: Not Given Documented by: Losartan Potassium (Cozaar -) 100 mg PO DAILY [facility] Last Admin: 06/03/20 09:21 Dose: 100 mg Documented by: Metoprolol Tartrate (Lopressor -) 25 mg PO BID [facility] Last Admin: 06/03/20 09:21 Dose: 25 mg Documented by: Tamsulosin HCl (Flomax -) 0.4 mg PO DAILY@0830 [facility] Last Admin: 06/03/20 09:21 Dose: 0.4 mg Documented by: - Objective Vital Signs: Vital Signs Temperature 97.7 F 06/03/20 09:00 Pulse Rate 80 06/03/20 09:00 Respiratory Rate 18 06/03/20 09:00 Blood Pressure 152/93 06/03/20 09:00 O2 Sat by Pulse Oximetry (%) 97 06/03/20 09:00 Labs: CBC, BMP 06/02/20 20:00 06/02/20 20:00 INR, PTT INR 1.17 (0.83-1.09) H 06/02/20 20:00 Fibrinogen 298.0 mg/dL (238-498) 05/26/20 05:16
--- NOTE | 2020-06-03 17:42 | PN ---
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, Physician - Current Medication List Current Medications: Active Medications Acetaminophen (Tylenol Oral Solution -) 650 mg PO Q4H PRN PRN Reason: PAIN 1-3 Amlodipine Besylate (Norvasc -) 10 mg PO DAILY [facility] Last Admin: 06/03/20 13:54 Dose: 10 mg Documented by: Aspirin (Ecotrin -) 81 mg PO DAILY [facility] Atorvastatin Calcium (Lipitor -) 20 mg PO HS [facility] Last Admin: 06/02/20 23:27 Dose: 20 mg Documented by: Collagenase (Santyl -) 1 applic TP DAILY [facility]; Protocol Last Admin: 06/03/20 11:35 Dose: 1 applic Documented by: Famotidine (Pepcid -) 20 mg PO DAILY [facility] Last Admin: 06/03/20 09:21 Dose: 20 mg Documented by: Ferrous Sulfate (Feosol -) 325 mg PO BID [facility] Last Admin: 06/03/20 09:21 Dose: 325 mg Documented by: Heparin Sodium (Porcine) (Heparin -) 5,000 unit SQ BID [facility] Last Admin: 06/03/20 09:22 Dose: 5,000 unit Documented by: Meropenem 1 gm/ Dextrose 100 mls @ 200 mls/hr IVPB Q12H [facility] Last Admin: 06/03/20 09:22 Dose: 200 mls/hr Documented by: Sodium Chloride (Normal Saline -) 1,000 mls @ 42 mls/hr IV ASDIR [facility] Last Admin: 06/03/20 06:11 Dose: Not Given Documented by: Insulin Aspart (Novolog Vial Sliding Scale -) 1 vial SQ TID [facility]; Protocol Last Admin: 06/03/20 13:59 Dose: Not Given Documented by: Losartan Potassium (Cozaar -) 100 mg PO DAILY [facility] Last Admin: 06/03/20 09:21 Dose: 100 mg Documented by: Metoprolol Tartrate (Lopressor -) 25 mg PO BID [facility] Last Admin: 06/03/20 09:21 Dose: 25 mg Documented by: Tamsulosin HCl (Flomax -) 0.4 mg PO DAILY@0830 [facility] Last Admin: 06/03/20 09:21 Dose: 0.4 mg Documented by: - Objective Vital Signs: Vital Signs Temperature 98.0 F 06/03/20 17:00 Pulse Rate 79 06/03/20 17:00 Respiratory Rate 18 06/03/20 09:00 Blood Pressure 163/96 06/03/20 17:00 O2 Sat by Pulse Oximetry (%) 97 06/03/20 17:00 Labs: CBC, BMP 06/02/20 20:00 06/02/20 20:00 INR, PTT INR 1.17 (0.83-1.09) H 06/02/20 20:00 Fibrinogen 298.0 mg/dL (238-498) 05/26/20 05:16 Assessment/Plan - Problems (1) Sepsis Assessment/Plan: -resolved -ID consult -IV meropenem -Repeat BC preliminary negative -Afebrile -Cultures: Microbiology 05/29/20 06:10 Blood - Peripheral Venous Blood Culture - Preliminary NO GROWTH OBTAINED AFTER 72 HOURS, INCUBATION TO CONTINUE FOR 2 DAYS. 05/29/20 06:10 Blood - Peripheral Venous Blood Culture - Preliminary NO GROWTH OBTAINED AFTER 72 HOURS, INCUBATION TO CONTINUE FOR 2 DAYS. 05/25/20 18:30 Sputum - Endotrachea Suction/Ventilator Gram Stain - Final 05/25/20 18:30 Sputum - Endotrachea Suction/Ventilator Sputum Culture - Final Yeast Like Organism 05/25/20 09:40 Blood - Peripheral Venous Blood Culture - Final Lactose Fermenting Neg Bacilli 05/25/20 09:35 Blood - Peripheral Venous Blood Culture - Final Citrobacter Koseri 05/25/20 09:40 Urine - Urine - Catheterized Urine Culture - Final NO GROWTH OBTAINED Problems reviewed: Yes Code(s): A41.9 - SEPSIS, UNSPECIFIED ORGANISM (2) Acute on chronic renal failure Assessment/Plan: -Nephrology consult -2/2 to acute infection -Cr at baseline Problems reviewed: Yes Code(s): N17.9 - ACUTE KIDNEY FAILURE, UNSPECIFIED; N18.9 - CHRONIC KIDNEY DI SEASE, UNSPECIFIED Qualifiers: Acute renal failure type: unspecified Chronic kidney disease stage: unspecified stage Qualified Code(s): N17.9 - Acute kidney failure, unspecified; N18.9 - Chronic kidney disease, unspecified (3) Amyloid disease Problems reviewed: Yes Code(s): E85.9 - AMYLOIDOSIS, UNSPECIFIED (4) Anemia Assessment/Plan: -KARIS in the past -Feosol BID -Monitor H/H -no overt bleeding -Check thyroid profile Problems reviewed: Yes Code(s): D64.9 - ANEMIA, UNSPECIFIED (5) Pleural effusion Problems reviewed: Yes Code(s): J90 - PLEURAL EFFUSION, NOT ELSEWHERE CLASSIFIED (6) Right lower lobe pneumonia Assessment/Plan: -as above -O2 to keep SpO2>90% -Pulmonary consult -COVID 19 PCR negative -Still on IV abx -ID on board -Afebrile Problems reviewed: Yes Code(s): J18.9 - PNEUMONIA, UNSPECIFIED ORGANISM Qualifiers: Pneumonia type: due to unspecified organism Qualified Code(s): J18.9 - Pneumonia, unspecified organism (7) Troponin I above reference range Assessment/Plan: -2/2 to sepsis and demand ischemia -ICU monitoring -Cardiology consult Problems reviewed: Yes Code(s): R79.89 - OTHER SPECIFIED ABNORMAL FINDINGS OF BLOOD CHEMISTRY (8) HTN (hypertension) Assessment/Plan: -Increase Losartan to 50 mg daily -Titrate meds to meet goal <140/90 mmHg Problems reviewed: Yes Code(s): I10 - ESSENTIAL (PRIMARY) HYPERTENSION (9) CHF (congestive heart failure) Assessment/Plan: -Continue BB + ARB Problems reviewed: Yes Code(s): I50.9 - HEART FAILURE, UNSPECIFIED Qualifiers: Heart failure type: unspecified Heart failure chronicity: unspecified Qualified Code(s): I50.9 - Heart failure, unspecified (10) Elevated liver enzymes Assessment/Plan: -likely 2/2 to congestive hepatopathy vs suspected amyloidosis -Trending down -Avoid hepatotoxic drugs Problems reviewed: Yes Code(s): R74.8 - ABNORMAL LEVELS OF OTHER SERUM ENZYMES (11) Cva Assessment/Plan: -Neuro and Cardio -On asa
--- NOTE | 2020-06-03 20:58 | RAPID ---
Physical Examination Vital Signs: BP 132/74 P 90 T 97.6 RR 20 sat 96% on 3L NC BGM 281 Physical Exam General: difficult to arouse, not interactive nor responding appropriately, left BKA Pulm: Coarse breath sounds Cardio: RRR, S1 S2 difficult to appreciate due to coarse breath sounds, cap refill <3sec Neuro: moving extremities spontaneously, not following commands, initially not responsive to painful stimuli but responded after ~5min Findings/Remarks: Rapid response was called at roughly 9pm to the 4th floor due to AMS and unresponsiveness - night float team responded immediately. At bedside, patient was vaguely responsive and was glaring around the room. After <5 minutes patient became a bit more responsive. Called Dr. Mccall, as there were no focal deficits or signs indicating an acute stroke. He recommended repeat head CT - we ordered it stat. Patient did not have labs for 06/03/2020. We ordered repeat labs: CBC, BMP, Mg, Phos, lactate, coags Labs: CBC, BMP 06/02/20 20:00 06/02/20 20:00
[2020-06-03 21:23] LABS: BASO % 0.6 % (0-2.0); EOS % 1.6 % (0-4.5); HEMATOCRIT 30.9 % (32.4-45.2); HEMOGLOBIN 9.9 GM/dL (10.7-15.3); LYMPH % 6.3 % (8-40); MCH 27.9 pg (25.7-33.7); MCHC 32.1 g/dl (32.0-36.0); MEAN CELL VOLUME 86.9 fl (80-96); MONO % 6.1 % (3.8-10.2); NEUT % 85.4 % (42.8-82.8); PLATELET COUNT 248 K/MM3 (134-434); RBC 3.56 M/mm3 (3.60-5.2); RDW 19.7 % (11.6-15.6); WHITE BLOOD COUNT 6.9 K/mm3 (4.0-10.0)
[2020-06-03 21:59] LABS: ALBUMIN 2.1 g/dl (3.4-5.0); BILIRUBIN,TOTAL 0.8 mg/dL (0.2-1); BLOOD UREA NITROGEN 24.5 mg/dL (7-18); CALCIUM 8.6 mg/dL (8.5-10.1); CREATININE 1.5 mg/dL (0.55-1.3); MAGNESIUM 1.9 mg/dL (1.8-2.4); PHOSPHOROUS 2.9 mg/dL (2.5-4.9); POTASSIUM 3.7 mmol/L (3.5-5.1); TOT PROT 7.7 g/dl (6.4-8.2)
[2020-06-03] MEDS: ATORVASTATIN CA 20 MG TABLET (FP) PO SCH (22:08)
[2020-06-03] MEDS: ASPIRIN COATED 81 MG TABLET.EC PO SCH (22:08)
--- NOTE | 2020-06-04 04:37 | PN ---
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, Physician Chief Complaint: Pt remains lethargic. History of Present Illness: Ms. Figueroa is a 70 year old black female (b. 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 foot, Chronic osteomyelitis of right foot, Diabetic neuropathy, Left leg below knee amputation, OA, Iron deficiency anemia, HLD, HTN, Charcot's joint, ESBL resistance, recently discharged from [facility] after treatment for CHF, who presents to the ED BIBA from [facility] for evaluation of hypoxia and AMS. Allergies: NKA Social history: No reported hx of tobacco use, alcohol use or illicit drug use. PCP: Romain Carvalho JR - Current Medication List Current Medications: Active Medications Acetaminophen (Tylenol Oral Solution -) 650 mg PO Q4H PRN PRN Reason: PAIN 1-3 Amlodipine Besylate (Norvasc -) 10 mg PO DAILY [facility] Last Admin: 06/03/20 13:54 Dose: 10 mg Documented by: Aspirin (Ecotrin -) 81 mg PO DAILY [facility] Last Admin: 06/03/20 22:08 Dose: 81 mg Documented by: Atorvastatin Calcium (Lipitor -) 20 mg PO HS [facility] Last Admin: 06/03/20 22:08 Dose: 20 mg Documented by: Collagenase (Santyl -) 1 applic TP DAILY [facility]; Protocol Last Admin: 06/03/20 11:35 Dose: 1 applic Documented by: Famotidine (Pepcid -) 20 mg PO DAILY [facility] Last Admin: 06/03/20 09:21 Dose: 20 mg Documented by: Ferrous Sulfate (Feosol -) 325 mg PO BID [facility] Last Admin: 06/03/20 22:08 Dose: 325 mg Documented by: Heparin Sodium (Porcine) (Heparin -) 5,000 unit SQ BID [facility] Last Admin: 06/03/20 22:14 Dose: 5,000 unit Documented by: Meropenem 1 gm/ Dextrose 100 mls @ 200 mls/hr IVPB Q12H [facility] Last Admin: 06/03/20 22:09 Dose: 200 mls/hr Documented by: Sodium Chloride (Normal Saline -) 1,000 mls @ 42 mls/hr IV ASDIR [facility] Last Admin: 06/03/20 22:10 Dose: 42 mls/hr Documented by: Insulin Aspart (Novolog Vial Sliding Scale -) 1 vial SQ TID [facility]; Protocol Last Admin: 06/03/20 13:59 Dose: Not Given Documented by: Losartan Potassium (Cozaar -) 100 mg PO DAILY [facility] Last Admin: 06/03/20 09:21 Dose: 100 mg Documented by: Metoprolol Tartrate (Lopressor -) 25 mg PO BID [facility] Last Admin: 06/03/20 22:08 Dose: 25 mg Documented by: Tamsulosin HCl (Flomax -) 0.4 mg PO DAILY@0830 [facility] Last Admin: 06/03/20 09:21 Dose: 0.4 mg Documented by: - Objective Vital Signs: Vital Signs Temperature 97.6 F 06/04/20 02:00 Pulse Rate 86 06/04/20 02:00 Respiratory Rate 20 06/04/20 02:00 Blood Pressure 143/85 06/04/20 02:00 O2 Sat by Pulse Oximetry (%) 98 06/04/20 02:00 Constitutional: Yes: Other Eyes: Yes: WNL HENT: Yes: WNL Neck: Yes: Decreased ROM Cardiovascular: Yes: Regular Rate and Rhythm, S1, S2, S4 Respiratory: Yes: Regular, Diminished Gastrointestinal: Yes: Soft Genitourinary: No: Anuria Breast(s): Yes: WNL Musculoskeletal: Yes: Muscle Weakness Extremities: Yes: Cool Edema: Yes Edema: LLE: 1+, RLE: 1+ Peripheral Pulses WNL: Yes Integumentary: Yes: Venous Stasis Changes Wound/Incision: Yes: Dressing Dry and Intact Neurological: Yes: Lethargy Psychiatric: Yes: Other Labs: CBC, BMP 06/03/20 21:05 06/03/20 21:05 INR, PTT INR Cancelled 06/03/20 21:05 Fibrinogen 298.0 mg/dL (238-498) 05/26/20 05:16 - ....Imaging Chest X-ray: Image Reviewed EKG: Image Reviewed Assessment/Plan 70 yr old black woman with PMHx low-normal systolic, diastolic CHF, ?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 foot, Chronic osteomyelitis of right foot, Diabetic neuropathy, Left leg below knee amputation, renal dysfunction, OA, Iron deficiency anemia, HLD, HTN, ESBL resistance, who presents to the ED from [facility] for evaluation of hypoxia and AMS that required intubation after recent admission for CHF. Suspected multilobar pnemonia and sepsis. Now extubated. Lethargy. MRI brain: multiple small bilateral cortical infarcts Plan: HTN: losartan and amlodipine are at maximum dosing; may increase metoprolol dose. On furosemide prn; consider thiazide diuretic; Hydralazine may be used if BP refractory. (BP parameters per neruologist noted). Hb stable (9.4) On furosemide prn per carpenter's helper. Amyloidosis w/u at [facility] Heart Failure [facility] pending. Neuro w/u noted and appreciated: on ASA; BP parameters.
[2020-06-04] MEDS: INSULIN SLIDING SCALE (NOVOLOG) 1 VIAL SQ SCH ×4 (06:32→22:13)
[2020-06-04] MEDS: SODIUM CHLORIDE 1,000 ML IV SCH (06:33)
[2020-06-04 08:02] LABS: BASO % 0.6 % (0-2.0); EOS % 0.8 % (0-4.5); HEMOGLOBIN 9.2 GM/dL (10.7-15.3); LYMPH % 7.7 % (8-40); MCH 27.3 pg (25.7-33.7); MCHC 31.7 g/dl (32.0-36.0); MEAN CELL VOLUME 86.2 fl (80-96); MEAN PLT VOLUME 9.2 fl (7.5-11.1); MONO % 4.8 % (3.8-10.2); NEUT % 86.1 % (42.8-82.8); PLATELET COUNT 268 K/MM3 (134-434); RBC 3.37 M/mm3 (3.60-5.2); WHITE BLOOD COUNT 8.3 K/mm3 (4.0-10.0)
[2020-06-04 08:12] LABS: BLOOD UREA NITROGEN 26.4 mg/dL (7-18); CALCIUM 9.1 mg/dL (8.5-10.1); CREATININE 1.5 mg/dL (0.55-1.3); MAGNESIUM 2.1 mg/dL (1.8-2.4); PHOSPHOROUS 2.8 mg/dL (2.5-4.9); POTASSIUM 3.5 mmol/L (3.5-5.1)
--- NOTE | 2020-06-04 08:18 | PN ---
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 foot, Chronic osteomyelitis of right foot, Diabetic neuropathy, Left leg below knee amputation, OA, Iron deficiency anemia, HLD, HTN, Charcot's joint, ESBL re sistance and who presents to the ED from [facility] for evaluation of hypoxia and AMS. The patient was previously discharged on 05/23 after having been treated for G(-) Bacteremia. History Source: Patient - Current Medication List Current Medications: Active Medications Acetaminophen (Tylenol Oral Solution -) 650 mg PO Q4H PRN PRN Reason: PAIN 1-3 Amlodipine Besylate (Norvasc -) 10 mg PO DAILY [facility] Last Admin: 06/03/20 13:54 Dose: 10 mg Documented by: Aspirin (Ecotrin -) 81 mg PO DAILY [facility] Last Admin: 06/03/20 22:08 Dose: 81 mg Documented by: Atorvastatin Calcium (Lipitor -) 20 mg PO HS [facility] Last Admin: 06/03/20 22:08 Dose: 20 mg Documented by: Collagenase (Santyl -) 1 applic TP DAILY [facility]; Protocol Last Admin: 06/03/20 11:35 Dose: 1 applic Documented by: Famotidine (Pepcid -) 20 mg PO DAILY [facility] Last Admin: 06/03/20 09:21 Dose: 20 mg Documented by: Ferrous Sulfate (Feosol -) 325 mg PO BID [facility] Last Admin: 06/03/20 22:08 Dose: 325 mg Documented by: Heparin Sodium (Porcine) (Heparin -) 5,000 unit SQ BID [facility] Last Admin: 06/03/20 22:14 Dose: 5,000 unit Documented by: Meropenem 1 gm/ Dextrose 100 mls @ 200 mls/hr IVPB Q12H [facility] Last Admin: 06/03/20 22:09 Dose: 200 mls/hr Documented by: Sodium Chloride (Normal Saline -) 1,000 mls @ 42 mls/hr IV ASDIR [facility] Last Admin: 06/04/20 06:33 Dose: 42 mls/hr Documented by: Insulin Aspart (Novolog Vial Sliding Scale -) 1 vial SQ TID [facility]; Protocol Last Admin: 06/04/20 06:34 Dose: 4 units Documented by: Losartan Potassium (Cozaar -) 100 mg PO DAILY [facility] Last Admin: 06/03/20 09:21 Dose: 100 mg Documented by: Metoprolol Tartrate (Lopressor -) 25 mg PO BID [facility] Last Admin: 06/03/20 22:08 Dose: 25 mg Documented by: Tamsulosin HCl (Flomax -) 0.4 mg PO DAILY@0830 [facility] Last Admin: 06/03/20 09:21 Dose: 0.4 mg Documented by: - Objective Vital Signs: Vital Signs Temperature 97.2 F L 06/04/20 05:49 Pulse Rate 85 06/04/20 05:49 Respiratory Rate 20 06/04/20 05:49 Blood Pressure 153/88 06/04/20 05:49 O2 Sat by Pulse Oximetry (%) 98 06/04/20 02:00 Eyes: Yes: WNL, Conjunctiva Clear, EOM Intact HENT: Yes: WNL, Atraumatic, Normocephalic Neck: Yes: WNL, Supple, Trachea Midline Cardiovascular: Yes: WNL, Regular Rate and Rhythm Respiratory: Yes: WNL, Regular, CTA Bilaterally Gastrointestinal: Yes: WNL, Normal Bowel Sounds Genitourinary: Yes: WNL Musculoskeletal: Yes: WNL Extremities: Yes: Amputation Edema: No Integumentary: Yes: WNL Neurological: Yes: WNL, Alert, Oriented ...Motor Strength: WNL Psychiatric: Yes: WNL Labs: CBC, BMP 06/04/20 06:00 06/04/20 06:00 INR, PTT INR Cancelled 06/03/20 21:05 Fibrinogen 298.0 mg/dL (238-498) 05/26/20 05:16 Problem List - Problems (1) Diabetic foot ulcer Code(s): E11.621 - TYPE 2 DIABETES MELLITUS WITH FOOT ULCER; L97.509 - NON- PRESSURE CHRONIC ULCER OTH PRT UNSP FOOT W UNSP SEVERITY Qualifiers: Diabetes mellitus type: type 1 Laterality: right (2) Sepsis Code(s): A41.9 - SEPSIS, UNSPECIFIED ORGANISM (3) Septic shock Code(s): A41.9 - SEPSIS, UNSPECIFIED ORGANISM; R65.21 - SEVERE SEPSIS WITH SEPTIC SHOCK (4) Acute on chronic renal failure Code(s): N17.9 - ACUTE KIDNEY FAILURE, UNSPECIFIED; N18.9 - CHRONIC KIDNEY DISEASE, UNSPECIFIED Qualifiers: Acute renal failure type: unspecified Chronic kidney disease stage: unspecified stage Qualified Code(s): N17.9 - Acute kidney failure, unspecified; N18.9 - Chronic kidney disease, unspecified (5) Amyloid disease Code(s): E85.9 - AMYLOIDOSIS, UNSPECIFIED (6) Anemia Code(s): D64.9 - ANEMIA, UNSPECIFIED (7) Bacteremia Code(s): R78.81 - BACTEREMIA (8) CHF (congestive heart failure) Code(s): I50.9 - HEART FAILURE, UNSPECIFIED Qualifiers: Heart failure type: unspecified Heart failure chronicity: unspecified Qualified Code(s): I50.9 - Heart failure, unspecified (9) Elevated liver enzymes Code(s): R74.8 - ABNORMAL LEVELS OF OTHER SERUM ENZYMES (10) Pleural effusion Code(s): J90 - PLEURAL EFFUSION, NOT ELSEWHERE CLASSIFIED (11) Right lower lobe pneumonia Code(s): J18.9 - PNEUMONIA, UNSPECIFIED ORGANISM Qualifiers: Pneumonia type: due to unspecified organism Qualified Code(s): J18.9 - Pneumonia, unspecified organism (12) Troponin I above reference range Code(s): R79.89 - OTHER SPECIFIED ABNORMAL FINDINGS OF BLOOD CHEMISTRY Assessment/Plan 70 yr old black woman with PMHx low-normal systolic, diastolic CHF, ?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 foot, Chronic osteomyelitis of right foot, Diabetic neuropathy, Left leg below knee amputation, renal dysfunction, OA, Iron deficiency anemia, HLD, HTN, ESBL resistance, who presents to the ED from [facility] for evaluation of hypoxia and AMS that required intubation after recent admission for CHF. Suspec alice multilobar pnemonia and sepsis. Now extubated. Lethargy. MRI brain: multiple small bilateral cortical infarcts Plan: HTN: losartan and amlodipine are at maximum dosing; may increase metoprolol do se. On furosemide prn; consider thiazide diuretic; Hydralazine may be used if BP refractory. (BP parameters per neruologist noted). Hb stable (9.4) On furosemide prn per heel burnisher. Amyloidosis w/u at [facility] Heart Failure Clinic pending. Neuro w/u noted and appreciated: on ASA; BP parameters.
--- NOTE | 2020-06-04 09:08 | PN ---
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 (short form) - Note 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: Neurology - Admission Chief Complaint: Facial droop, RUE weakness History of Present Illness: 70 year old female with a significant PMHx of Uncontrolled DM, Diabetic foot ulcer on R. foot, Chronic osteomyelitis of right foot, Diabetic neuropathy, Left leg below knee amputation, OA, Iron deficiency anemia, HLD, HTN, Charcot's joint, ESBL resistance and CHF who presents to the ED from [facility] for evaluation of hypoxia and AMS. The patient was previously discharged on 05/23 after having been treated for G(-) Bacteremia. Patient has been getting medical/infectious management. I was contacted 06/02 but Resident indicating that patient had right facial droop along with right upper extremity weakness and confusion. Patient symptoms improved and TPA not given. Advised noncontrast head CT which was without acute changes as well as CTA of the head to confirm no large vessel occlusion and was also negative. Advised to give aspirin 325 mg on 06/02 and start 81 mg daily as of 06/03. Recommended stroke work up including MRI brain which was completed and showed area of bilateral infarcts, suspicious for embolic phenomenon. carotid Dopplers completed and demonstrated no evidence of high-grade stenosis on the left but right side could not be visualized clearly. CTA/MRA were recommended, will order. Overnight, contacted by resident due to patient having altered mental status. Explained that patient with underlying sepsis and did not have focal deficits and seem more generalized delirium. Repeat noncontrast head CT was recommended and did not show any acute changes. This morning, she is awakebut minimally verbal, appears fatigued. Lab derangements noted, likely toxic metabolic encephalopathy recurrent further medical management. Active Medications Acetaminophen (Tylenol Oral Solution -) 650 mg PO Q4H PRN PRN Reason: PAIN 1-3 Amlodipine Besylate (Norvasc -) 10 mg PO DAILY [facility] Last Admin: 06/03/20 13:54 Dose: 10 mg Documented by: Aspirin (Ecotrin -) 81 mg PO DAILY [facility] Last Admin: 06/03/20 22:08 Dose: 81 mg Documented by: Atorvastatin Calcium (Lipitor -) 20 mg PO HS [facility] Last Admin: 06/03/20 22:08 Dose: 20 mg Documented by: Collagenase (Santyl -) 1 applic TP DAILY [facility]; Protocol Last Admin: 06/03/20 11:35 Dose: 1 applic Documented by: Famotidine (Pepcid -) 20 mg PO DAILY [facility] Last Admin: 06/03/20 09:21 Dose: 20 mg Documented by: Ferrous Sulfate (Feosol -) 325 mg PO BID [facility] Last Admin: 06/03/20 22:08 Dose: 325 mg Documented by: Heparin Sodium (Porcine) (Heparin -) 5,000 unit SQ BID [facility] Last Admin: 06/03/20 22:14 Dose: 5,000 unit Documented by: Meropenem 1 gm/ Dextrose 100 mls @ 200 mls/hr IVPB Q12H [facility] Last Admin: 06/03/20 22:09 Dose: 200 mls/hr Documented by: Sodium Chloride (Normal Saline -) 1,000 mls @ 42 mls/hr IV ASDIR [facility] Last Admin: 06/04/20 06:33 Dose: 42 mls/hr Documented by: Insulin Aspart (Novolog Vial Sliding Scale -) 1 vial SQ TID [facility]; Protocol Last Admin: 06/04/20 06:34 Dose: 4 units Documented by: Losartan Potassium (Cozaar -) 100 mg PO DAILY [facility] Last Admin: 06/03/20 09:21 Dose: 100 mg Documented by: Metoprolol Tartrate (Lopressor -) 25 mg PO BID [facility] Last Admin: 06/03/20 22:08 Dose: 25 mg Documented by: Tamsulosin HCl (Flomax -) 0.4 mg PO DAILY@0830 [facility] Last Admin: 06/03/20 09:21 Dose: 0.4 mg Documented by: Physical Examination Vital Signs Period Temp Pulse Resp BP Sys/Dobson Pulse Ox Last 24 Hr 97.2 F-98.0 F 75-90 20-20 132-185/78-111 95-98 Constitutional: Yes: Well Nourished, No Distress, Calm Cardiovascular: Yes: Regular Rate and Rhythm Respiratory: Yes: Mechanically Ventilated, Rhonchi (diffuse) Gastrointestinal: Yes: Soft, Hypoactive Bowel Sounds Renal/: Yes: Lynn Present Edema: No Peripheral Pulses WNL: Yes Neurological: AWake, right facial weakness minimal, moves extremities grossly but not participating in confrontation testing, sensory intact, gait deferred Labs: CBCD WBC 8.3 K/mm3 (4.0-10.0) 06/04/20 06:00 RBC 3.37 M/mm3 (3.60-5.2) L 06/04/20 06:00 Hgb 9.2 GM/dL (10.7-15.3) L 06/04/20 06:00 Hct 29.0 % (32.4-45.2) L 06/04/20 06:00 MCV 86.2 fl (80-96) 06/04/20 06:00 MCHC 31.7 g/dl (32.0-36.0) L 06/04/20 06:00 RDW 20.0 % (11.6-15.6) H 06/04/20 06:00 Plt Count 268 K/MM3 (134-434) 06/04/20 06:00 MPV 9.2 fl (7.5-11.1) 06/04/20 06:00 CMP Sodium 151 mmol/L (136-145) H 06/04/20 06:00 Potassium 3.5 mmol/L (3.5-5.1) 06/04/20 06:00 Chloride 114 mmol/L (98-107) H 06/04/20 06:00 Carbon Dioxide 29 mmol/L (21-32) 06/04/20 06:00 Anion Gap 8 MMOL/L (8-16) 06/04/20 06:00 BUN 26.4 mg/dL (7-18) H 06/04/20 06:00 Creatinine 1.5 mg/dL (0.55-1.3) H 06/04/20 06:00 Random Glucose 255 mg/dL (74-106) H 06/04/20 06:00 Calcium 9.1 mg/dL (8.5-10.1) 06/04/20 06:00 Total Bilirubin 0.8 mg/dL (0.2-1) 06/03/20 21:05 AST 25 U/L (15-37) 06/03/20 21:05 ALT 149 U/L (13-61) H 06/03/20 21:05 Alkaline Phosphatase 198 U/L (45-117) H 06/03/20 21:05 Total Protein 7.7 g/dl (6.4-8.2) 06/03/20 21:05 Albumin 2.1 g/dl (3.4-5.0) L 06/03/20 21:05 CARDIAC ENZYMES Creatine Kinase 28 U/L (26-192) 06/03/20 12:40 Troponin I 0.09 ng/ml (0.00-0.05) H 06/03/20 12:40 Plan: 70 year old female with a significant PMHx of Uncontrolled DM, Diabetic foot ulcer on R. foot, Chronic osteomyelitis of right foot, Diabetic neuropathy, Left leg below knee amputation, OA, Iron deficiency anemia, HLD, HTN, Charcot's joint, ESBL resistance and CHF who presents to the ED from [facility] for evaluation of hypoxia and AMS. The patient was previously discharged on 05/23 after having been treated for G(-) Bacteremia. Patient has been getting medical/infectious management. I was contacted 06/02 but Resident indicating that patient had right facial droop along with right upper extremity weakness and confusion. Patient symptoms improved and TPA not given. Advised noncontrast head CT which was without acute changes as well as CTA of the head to confirm no large vessel occlusion and was also negative. Advised to give aspirin 325 mg on 06/02 and start 81 mg daily as of 06/03. Recommended stroke work up including MRI brain which was completed overnight and showed area of bilateral infarcts, suspi cious for embolic phenomenon. carotid Dopplers completed and demonstrated no evidence of high-grade stenosis on the left but right side could not be visualized clearly. CTA/MRA were recommended, will order. Overnight, contacted by resident due to patient having altered mental status. Explained that patient with underlying sepsis and did not have focal deficits and seem more generalized delirium. Repeat noncontrast head CT was recommended and did not show any acute changes COnitnue ID follow up and mgmt. Monitor bp, <150/90 Recommended. Physical therapy as tolerated. frequent reorientation, maintain hydration. Monitor labs, continue close follow-up
--- NOTE | 2020-06-04 10:35 | PN ---
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, Physician Chief Complaint: Acute Hypoxic Respiratory Failure s/p extubation on 05/29/20 Pneumonia UTI Bacteremia Suspected Amyloidosis +Troponins likely Demand Ischemia HTN DM Hyperlipidemia Anemia Sepsis TONIA Hypernatremia CVA History of Present Illness: NAD S/P acute stroke Hypernatremia TONIA Overnight [employer] called in for AMS CT head repeat was unremarkable AMS likely 2/2 to metabolic encephalopathy - Current Medication List Current Medications: Active Medications Acetaminophen (Tylenol Oral Solution -) 650 mg PO Q4H PRN PRN Reason: PAIN 1-3 Amlodipine Besylate (Norvasc -) 10 mg PO DAILY [facility] Last Admin: 06/03/20 13:54 Dose: 10 mg Documented by: Aspirin (Ecotrin -) 81 mg PO DAILY [facility] Last Admin: 06/03/20 22:08 Dose: 81 mg Documented by: Atorvastatin Calcium (Lipitor -) 20 mg PO HS [facility] Last Admin: 06/03/20 22:08 Dose: 20 mg Documented by: Collagenase (Santyl -) 1 applic TP DAILY [facility]; Protocol Last Admin: 06/03/20 11:35 Dose: 1 applic Documented by: Famotidine (Pepcid -) 20 mg PO DAILY [facility] Last Admin: 06/03/20 09:21 Dose: 20 mg Documented by: Ferrous Sulfate (Feosol -) 325 mg PO BID [facility] Last Admin: 06/03/20 22:08 Dose: 325 mg Documented by: Heparin Sodium (Porcine) (Heparin -) 5,000 unit SQ BID [facility] Last Admin: 06/03/20 22:14 Dose: 5,000 unit Documented by: Meropenem 1 gm/ Dextrose 100 mls @ 200 mls/hr IVPB Q12H [facility] Last Admin: 06/03/20 22:09 Dose: 200 mls/hr Documented by: Dextrose (D5w -) 1,000 mls @ 83 mls/hr IV .[id number] [facility] Insulin Aspart (Novolog Vial Sliding Scale -) 1 vial SQ TID [facility]; Protocol Last Admin: 06/04/20 06:34 Dose: 4 units Documented by: Losartan Potassium (Cozaar -) 100 mg PO DAILY [facility] Last Admin: 06/03/20 09:21 Dose: 100 mg Documented by: Metoprolol Tartrate (Lopressor -) 25 mg PO BID [facility] Last Admin: 06/03/20 22:08 Dose: 25 mg Documented by: Tamsulosin HCl (Flomax -) 0.4 mg PO DAILY@0830 [facility] Last Admin: 06/03/20 09:21 Dose: 0.4 mg Documented by: - Objective Vital Signs: Vital Signs Temperature 97.2 F L 06/04/20 05:49 Pulse Rate 85 06/04/20 05:49 Respiratory Rate 06/04/20 05:49 Blood Pressure 153/88 06/04/20 05:49 O2 Sat by Pulse Oximetry (%) 98 06/04/20 02:00 Constitutional: Yes: Well Nourished, No Distress, Calm Cardiovascular: Yes: Regular Rate and Rhythm Respiratory: Yes: Regular, CTA Bilaterally Gastrointestinal: Yes: Normal Bowel Sounds, Soft Genitourinary: Yes: Incontinence Musculoskeletal: Yes: Muscle Weakness Extremities: Yes: WNL Edema: No Peripheral Pulses WNL: Yes Neurological: Yes: Lethargy Labs: CBC, BMP 06/04/20 06:00 06/04/20 06:00 INR, PTT INR Cancelled 06/03/20 21:05 Fibrinogen 298.0 mg/dL (238-498) 05/26/20 05:16 Problem List - Problems (1) Sepsis Assessment/Plan: -resolved -ID consult -IV meropenem -Repeat BC negative -Afebrile -Cultures: Microbiology 05/29/20 06:10 Blood - Peripheral Venous Blood Culture - Final NO GROWTH AFTER 5 DAYS INCUBATION 05/29/20 06:10 Blood - Peripheral Venous Blood Culture - Final NO GROWTH AFTER 5 DAYS INCUBATION 05/25/20 18:30 Sputum - Endotrachea Suction/Ventilator Gram Stain - Final 05/25/20 18:30 Sputum - Endotrachea Suction/Ventilator Sputum Culture - Final Yeast Like Organism 05/25/20 09:40 Blood - Peripheral Venous Blood Culture - Final Lactose Fermenting Neg Bacilli 05/25/20 09:35 Blood - Peripheral Venous Blood Culture - Final Citrobacter Koseri 05/25/20 09:40 Urine - Urine - Catheterized Urine Culture - Final NO GROWTH OBTAINED Problems reviewed: Yes Code(s): A41.9 - SEPSIS, UNSPECIFIED ORGANISM (2) Acute on chronic renal failure Assessment/Plan: -Nephrology consult -2/2 to acute infection -Cr at baseline Problems reviewed: Yes Code(s): N17.9 - ACUTE KIDNEY FAILURE, UNSPECIFIED; N18.9 - CHRONIC KIDNEY DISEASE, UNSPECIFIED Qualifiers: Acute renal failure type: unspecified Chronic kidney disease stage: unspecified stage Qualified Code(s): N17.9 - Acute kidney failure, unspecified; N18.9 - Chronic kidney disease, unspecified (3) Amyloid disease Problems reviewed: Yes Code(s): E85.9 - AMYLOIDOSIS, UNSPECIFIED (4) Anemia Assessment/Plan: -KARIS in the past -Feosol BID -Monitor H/H -no overt bleeding -Check thyroid profile Problems reviewed: Yes Code(s): D64.9 - ANEMIA, UNSPECIFIED (5) Pleural effusion Problems reviewed: Yes Code(s): J90 - PLEURAL EFFUSION, NOT ELSEWHERE CLASSIFIED (6) Right lower lobe pneumonia Assessment/Plan: -as above -O2 to keep SpO2>90% -Pulmonary consult -COVID 19 PCR negative -Still on IV abx -ID on board -Afebrile Problems reviewed: Yes Code(s): J18.9 - PNEUMONIA, UNSPECIFIED ORGANISM Qualifiers: Pneumonia type: due to unspecified organism Qualified Code(s): J18.9 - Pneumonia, unspecified organism (7) Troponin I above reference range Assessment/Plan: -2/2 to sepsis and demand ischemia -ICU monitoring -Cardiology consult Problems reviewed: Yes Code(s): R79.89 - OTHER SPECIFIED ABNORMAL FINDINGS OF BLOOD CHEMISTRY (8) HTN (hypertension) Assessment/Plan: -Losartan to 100 mg daily -Continue lopressor 25 mg po bid -Continue amlodipine 10 mg po daily -Titrate meds to meet goal <140/90 mm Hg Problems reviewed: Yes Code(s): I10 - ESSENTIAL (PRIMARY) HYPERTENSION (9) CHF (congestive heart failure) Assessment/Plan: -Continue BB + ARB+ CCB Problems reviewed: Yes Code(s): I50.9 - HEART FAILURE, UNSPECIFIED Qualifiers: Heart failure type: unspecified Heart failure chronicity: unspecified Qualified Code(s): I50.9 - Heart failure, unspecified (10) Elevated liver enzymes Assessment/Plan: -likely 2/2 to congestive hepatopathy vs suspected amyloidosis -Trending down -Avoid hepatotoxic drugs Problems reviewed: Yes Code(s): R74.8 - ABNORMAL LEVELS OF OTHER SERUM ENZYMES (11) CVA (cerebral vascular accident) Assessment/Plan: -ASA -Statin -Neurology consult Problems reviewed: Yes Code(s): I63.9 - CEREBRAL INFARCTION, UNSPECIFIED Assessment/Plan See problem list
[2020-06-04] MEDS ORDERED: DEXTROSE 5%-WATER 100 ML IVPB ONE (10:43)
[2020-06-04] MEDS ORDERED: PT OWN MED DRAWER 7, Y5N ONE (10:43)
[2020-06-04] MEDS ORDERED: MEROPENEM 1 GM VIAL (RESTRICTED TO ID) IVPB ONE (10:43)
[2020-06-04] MEDS: LOSARTAN POTASSIUM 50 MG TABLET (FP) PO SCH (10:54)
[2020-06-04] MEDS: ASPIRIN COATED 81 MG TABLET.EC PO SCH (10:54)
[2020-06-04] MEDS: amLODIPine BESYLATE 10 MG TABLET (FP) PO SCH (10:54)
[2020-06-04] MEDS: FAMOTIDINE 20 MG TABLET PO SCH (10:54)
[2020-06-04] MEDS: FERROUS SO4 325 MG TABLET (FP) PO SCH ×2 (10:54→22:10)
[2020-06-04] MEDS: METOPROLOL TARTRATE 25 MG TABLET (FP) PO SCH ×2 (10:55→22:10)
[2020-06-04] MEDS: MEROPENEM 1 GM in DEXTROSE 5%-WATER 100 ML IVPB SCH (10:55)
[2020-06-04] MEDS: HEPARIN NA (PORCINE) 5,000 UNITS/ML 1ML VIAL SQ SCH ×2 (10:55→22:11)
[2020-06-04] MEDS: TAMSULOSIN HCL 0.4 MG CAP PO SCH (10:55)
[2020-06-04] MEDS: COLLAGENASE CLOSTRIDIUM HIST. 30 GRAMS TUBE TP SCH (10:55)
--- NOTE | 2020-06-04 11:00 | PN ---
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, [employer] - Note 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: Selected Entries 06/02/20 06/02/20 06/02/20 05:31 06:00 09:00 Breakfast Diet Tolerated Fair Lunch Temperature Pulse Rate Blood Pressure O2 Sat by Pulse 94 L 94 L Oximetry (%) Oxygen Delivery Nasal Cannula Method 06/02/20 06/02/20 06/02/20 10:00 10:24 15:09 Breakfast 75% Diet Tolerated Fair Fair Lunch 75% Temperature Pulse Rate Blood Pressure O2 Sat by Pulse 94 L 98 Oximetry (%) Oxygen Delivery Method 06/02/20 06/02/20 06/02/20 16:33 18:59 19:30 Breakfast Diet Tolerated Lunch Temperature Pulse Rate Blood Pressure O2 Sat by Pulse 96 96 96 Oximetry (%) Oxygen Delivery Method 06/02/20 06/02/20 06/02/20 20:00 21:00 22:55 Breakfast Diet Tolerated Lunch Temperature Pulse Rate Blood Pressure O2 Sat by Pulse 96 96 95 Oximetry (%) Oxygen Delivery Nasal Cannula Method 06/02/20 06/03/20 06/03/20 22:57 01:54 05:32 Breakfast Diet Tolerated Lunch Temperature 98.8 F 97.7 F Pulse Rate 80 79 Blood Pressure 162/90 155/92 O2 Sat by Pulse 95 95 97 Oximetry (%) Oxygen Delivery Method 06/03/20 06/03/20 09:00 11:10 Breakfast 50% Diet Tolerated Well Lunch Temperature 97.7 F Pulse Rate 80 Blood Pressure 152/93 O2 Sat by Pulse 97 Oximetry (%) Oxygen Delivery Method Laboratory Tests 06/02/20 20:00 WBC 7.0 Selected Entries 06/03/20 06/03/20 06/03/20 01:54 05:32 09:00 Breakfast Diet Tolerated Lunch Supper Temperature 98.8 F 97.7 F 97.7 F Pulse Rate 80 79 80 Blood Pressure 162/90 155/92 152/93 06/03/20 06/03/20 06/03/20 11:10 14:00 18:00 Breakfast 50% Diet Tolerated Well Poor Poor Lunch 25% Supper 25% Temperature Pulse Rate Blood Pressure 06/03/20 06/04/20 06/04/20 22:00 02:00 05:49 Breakfast Diet Tolerated Poor Lunch Supper 25% Temperature 97.6 F 97.2 F L Pulse Rate 86 85 Blood Pressure 143/85 153/88 Laboratory Tests 06/04/20 06:00 WBC 8.3 Medical event noted Verbal intermittently Feed only when alert Aspiration precautions Monitor PO tolerance Suggest puree,nectar thick Magic cup, ensure pudding
--- NOTE | 2020-06-04 11:47 | PN ---
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, Physician History of Present Illness: PULMONARY SOMNOLENT,AROUSABLE,-RESP DISTRESS - Current Medication List Current Medications: Active Medications Acetaminophen (Tylenol Oral Solution -) 650 mg PO Q4H PRN PRN Reason: PAIN 1-3 Amlodipine Besylate (Norvasc -) 10 mg PO DAILY [facility] Last Admin: 06/04/20 10:54 Dose: 10 mg Documented by: Aspirin (Ecotrin -) 81 mg PO DAILY [facility] Last Admin: 06/04/20 10:54 Dose: 81 mg Documented by: Atorvastatin Calcium (Lipitor -) 20 mg PO HS [facility] Last Admin: 06/03/20 22:08 Dose: 20 mg Documented by: Collagenase (Santyl -) 1 applic TP DAILY [facility]; Protocol Last Admin: 06/04/20 10:55 Dose: 1 applic Documented by: Famotidine (Pepcid -) 20 mg PO DAILY [facility] Last Admin: 06/04/20 10:54 Dose: 20 mg Documented by: Ferrous Sulfate (Feosol -) 325 mg PO BID [facility] Last Admin: 06/04/20 10:54 Dose: 325 mg Documented by: Heparin Sodium (Porcine) (Heparin -) 5,000 unit SQ BID [facility] Last Admin: 06/04/20 10:55 Dose: 5,000 unit Documented by: Meropenem 1 gm/ Dextrose 100 mls @ 200 mls/hr IVPB Q12H [facility] Last Admin: 06/04/20 10:55 Dose: 200 mls/hr Documented by: Dextrose (D5w -) 1,000 mls @ 83 mls/hr IV .[id number] [facility] Insulin Aspart (Novolog Vial Sliding Scale -) 1 vial SQ TID [facility]; Protocol Last Admin: 06/04/20 06:34 Dose: 4 units Documented by: Losartan Potassium (Cozaar -) 100 mg PO DAILY [facility] Last Admin: 06/04/20 10:54 Dose: 100 mg Documented by: Metoprolol Tartrate (Lopressor -) 25 mg PO BID [facility] Last Admin: 06/04/20 10:55 Dose: 25 mg Documented by: Tamsulosin HCl (Flomax -) 0.4 mg PO DAILY@0830 [facility] Last Admin: 06/04/20 10:55 Dose: 0.4 mg Documented by: - Objective Vital Signs: Vital Signs Temperature 97.2 F L 06/04/20 05:49 Pulse Rate 85 08/28/20 05:49 Respiratory Rate 20 06/04/20 05:49 Blood Pressure 153/88 06/04/20 05:49 O2 Sat by Pulse Oximetry (%) 98 06/04/20 02:00 Constitutional: Yes: Well Nourished, Calm Eyes: Yes: WNL HENT: Yes: WNL Neck: Yes: WNL Cardiovascular: Yes: Regular Rate and Rhythm, S1, S2 Respiratory: Yes: Diminished Gastrointestinal: Yes: Normal Bowel Sounds, Soft Extremities: Yes: Amputation (LEFT BKA) Labs: CBC, BMP 06/04/20 06:00 06/04/20 06:00 INR, PTT INR Cancelled 06/03/20 21:05 Fibrinogen 298.0 mg/dL (238-498) 05/26/20 05:16 Assessment/Plan ASSESSMENT AND PLAN: Acute Hypoxic Respiratory Failure improved Pneumonia UTI LV Diastolic Dysfunction Suspected Amyloidosis +Troponins likely Demand Ischemia HTN DM Hyperlipidemia Anemia Multiple small acute cva's - antibiotics per ID - O2 to keep SpO2 >90% - aspiration precautions - PO as tolerated - DVT prophylaxis - w/u as per neuro DR LEAL
--- NOTE | 2020-06-04 12:13 | PN ---
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, Physician History of Present Illness: no new issues stable - Current Medication List Current Medications: Active Medications Acetaminophen (Tylenol Oral Solution -) 650 mg PO Q4H PRN PRN Reason: PAIN 1-3 Amlodipine Besylate (Norvasc -) 10 mg PO DAILY [facility] Last Admin: 06/04/20 10:54 Dose: 10 mg Documented by: Aspirin (Ecotrin -) 81 mg PO DAILY [facility] Last Admin: 06/04/20 10:54 Dose: 81 mg Documented by: Atorvastatin Calcium (Lipitor -) 20 mg PO HS [facility] Last Admin: 06/03/20 22:08 Dose: 20 mg Documented by: Collagenase (Santyl -) 1 applic TP DAILY [facility]; Protocol Last Admin: 06/04/20 10:55 Dose: 1 applic Documented by: Famotidine (Pepcid -) 20 mg PO DAILY [facility] Last Admin: 06/04/20 10:54 Dose: 20 mg Documented by: Ferrous Sulfate (Feosol -) 325 mg PO BID [facility] Last Admin: 06/04/20 10:54 Dose: 325 mg Documented by: Heparin Sodium (Porcine) (Heparin -) 5,000 unit SQ BID [facility] Last Admin: 06/04/20 10:55 Dose: 5,000 unit Documented by: Meropenem 1 gm/ Dextrose 100 mls @ 200 mls/hr IVPB Q12H [facility] Last Admin: 06/04/20 10:55 Dose: 200 mls/hr Documented by: Dextrose (D5w -) 1,000 mls @ 83 mls/hr IV Q12H [facility] Insulin Aspart (Novolog Vial Sliding Scale -) 1 vial SQ TID [facility]; Protocol Last Admin: 06/04/20 06:34 Dose: 4 units Documented by: Losartan Potassium (Cozaar -) 100 mg PO DAILY [facility] Last Admin: 06/04/20 10:54 Dose: 100 mg Documented by: Metoprolol Tartrate (Lopressor -) 25 mg PO BID [facility] Last Admin: 06/04/20 10:55 Dose: 25 mg Documented by: Tamsulosin HCl (Flomax -) 0.4 mg PO DAILY@0830 [facility] Last Admin: 06/04/20 10:55 Dose: 0.4 mg Documented by: - Objective Vital Signs: Vital Signs Temperature 97.2 F L 06/04/20 05:49 Pulse Rate 85 08/28/20 05:49 Respiratory Rate 20 06/04/20 05:49 Blood Pressure 153/88 06/04/20 05:49 O2 Sat by Pulse Oximetry (%) 98 06/04/20 02:00 Constitutional: Yes: No Distress, Calm Cardiovascular: Yes: S1, S2 Respiratory: Yes: Regular, CTA Bilaterally Gastrointestinal: Yes: Normal Bowel Sounds, Soft Musculoskeletal: Yes: WNL Extremities: Yes: WNL Neurological: Yes: Alert Psychiatric: Yes: Alert Labs: CBC, BMP 06/04/20 06:00 06/04/20 06:00 INR, PTT INR Cancelled 06/03/20 21:05 Fibrinogen 298.0 mg/dL (238-498) 05/26/20 05:16 Assessment/Plan Acute Respiratory Failure due to Multi-lobar PNA R/O Aspiration Uncontrolled DM Right diabetic foot ulcer Chronic osteomyelitis of right foot Diabetic neuropathy Left BKA OA Iron deficiency anemia HLD HTN Charcot's joint gm negative bacteremia plan stopped abx nutritional support
[2020-06-04] MEDS: DEXTROSE 5%-WATER - 1,000 ML IV SCH ×2 (12:32→22:44)
--- NOTE | 2020-06-04 16:39 | PN ---
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, Physician Chief Complaint: Sepsis History of Present Illness: Seen and examined at the bedside lethargic, sleeping s/p Rapid response, CT showed on acute pathology pt offers no complaints making urine on IVF. - Current Medication List Current Medications: Active Medications Acetaminophen (Tylenol Oral Solution -) 650 mg PO Q4H PRN PRN Reason: PAIN 1-3 Amlodipine Besylate (Norvasc -) 10 mg PO DAILY [facility] Last Admin: 06/04/20 10:54 Dose: 10 mg Documented by: Aspirin (Ecotrin -) 81 mg PO DAILY [facility] Last Admin: 06/04/20 10:54 Dose: 81 mg Documented by: Atorvastatin Calcium (Lipitor -) 20 mg PO HS [facility] Last Admin: 06/03/20 22:08 Dose: 20 mg Documented by: Collagenase (Santyl -) 1 applic TP DAILY [facility]; Protocol Last Admin: 06/04/20 10:55 Dose: 1 applic Documented by: Famotidine (Pepcid -) 20 mg PO DAILY [facility] Last Admin: 06/04/20 10:54 Dose: 20 mg Documented by: Ferrous Sulfate (Feosol -) 325 mg PO BID [facility] Last Admin: 06/04/20 10:54 Dose: 325 mg Documented by: Heparin Sodium (Porcine) (Heparin -) 5,000 unit SQ BID [facility] Last Admin: 06/04/20 10:55 Dose: 5,000 unit Documented by: Dextrose (D5w -) 1,000 mls @ 83 mls/hr IV Q12H [facility] Last Admin: 06/04/20 12:32 Dose: 83 mls/hr Documented by: Insulin Aspart (Novolog Vial Sliding Scale -) 1 vial SQ TID [facility]; Protocol Last Admin: 06/04/20 15:20 Dose: 8 units Documented by: Losartan Potassium (Cozaar -) 100 mg PO DAILY [facility] Last Admin: 06/04/20 10:54 Dose: 100 mg Documented by: Metoprolol Tartrate (Lopressor -) 25 mg PO BID [facility] Last Admin: 06/04/20 10:55 Dose: 25 mg Documented by: Tamsulosin HCl (Flomax -) 0.4 mg PO DAILY@0830 [facility] Last Admin: 06/04/20 10:55 Dose: 0.4 mg Documented by: - Objective Vital Signs: Vital Signs Temperature 97.5 F L 06/04/20 14:35 Pulse Rate 87 06/04/20 14:35 Respiratory Rate 20 06/04/20 14:35 Blood Pressure 143/77 06/04/20 14:35 O2 Sat by Pulse Oximetry (%) 98 06/04/20 09:00 Constitutional: Yes: No Distress HENT: Yes: Atraumatic Neck: Yes: Supple Respiratory: Yes: Regular Gastrointestinal: Yes: Soft Extremities: No: Cyanosis Edema: No Neurological: Yes: Lethargy Labs: CBC, BMP 06/04/20 06:00 06/04/20 06:00 INR, PTT INR Cancelled 06/03/20 21:05 Fibrinogen 298.0 mg/dL (238-498) 05/26/20 05:16 Assessment/Plan 70 year old woman with history of systolic heart failure, CKD with baseline Cr of 1.4, DM, Chronic osteomylitis who presented form the NH with respiratory distress and found to have respiratory failure requiring intubation with acute kidney injury. 1. Acute respiratory failure secondary to suspected pneumonia 2. Sepsis from UTI vs. PNA 3. Lactic acidosis in setting of sepsis 4. Acute on chronic renal insufficiency secondary to sepsis/renal hypoprofusion 5. Hx of CHF/Pleural effusions 6. Elevated troponins 7. Hyperkalemia 8. Acute CVA seen on MRI. 9. Suspected Amyloidosis Renal function stable, baseline Cr ~1.5 Continue D5W for tx of hypernatremia PRN Lasix if signs of respiratory distress or volume overload Continue ASA and statin as per neurology. BP parameters as per neurology. Trend renal function and electrolytes daily. overall prognosis is guarded Joaquín Berry DO
[2020-06-04] MEDS: ATORVASTATIN CA 20 MG TABLET (FP) PO SCH (22:10)
[2020-06-05] MEDS: INSULIN SLIDING SCALE (NOVOLOG) 1 VIAL SQ SCH ×3 (06:41→21:54)
--- NOTE | 2020-06-05 06:46 | PN ---
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 (short form) - Note 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: Coverage for Dr. Haroon Taylor Chief Complaint: Events noted, notes reviewed, resting in bed, no distress, as per nursing staff overall no change in status History of Present Illness: Seen and examined on telemetry. Events noted, notes reviewed, resting in bed, no distress, as per nursing staff overall no change in status Medications: Current Medications Generic Name Dose Route Start Last Admin Trade Name Freq PRN Reason Stop Dose Admin Acetaminophen 650 mg 06/03/20 00:33 Tylenol Oral Solution - PO Q4H PRN PAIN 1-3 Amlodipine Besylate 10 mg 06/03/20 13:15 06/04/20 10:54 Norvasc - PO 10 mg DAILY [facility] Administration Aspirin 81 mg 06/03/20 19:15 06/04/20 10:54 Ecotrin - PO 81 mg DAILY [facility] Administration Atorvastatin Calcium 20 mg 06/02/20 22:00 06/04/20 22:10 Lipitor - PO 20 mg HS [facility] Administration Collagenase 1 applic 06/03/20 10:00 06/04/20 10:55 Santyl - TP 1 applic DAILY [facility] Administration Protocol Famotidine 20 mg 06/03/20 10:00 06/04/20 10:54 Pepcid - PO 20 mg DAILY [facility] Administration Ferrous Sulfate 325 mg 06/03/20 10:00 06/04/20 22:10 Feosol - PO 325 mg BID [facility] Administration Heparin Sodium (Porcine) 5,000 unit 06/03/20 10:00 06/04/20 22:11 Heparin - SQ 5,000 unit BID [facility] Administration Dextrose 1,000 mls @ 83 mls/hr 06/04/20 10:15 06/04/20 22:44 D5w - IV 83 mls/hr Q12H [facility] Administration Insulin Aspart 1 vial 06/03/20 06:00 06/05/20 06:41 Novolog Vial Sliding Scale - SQ 6 units TID [facility] Administration Protocol Losartan Potassium 100 mg 06/03/20 10:00 06/04/20 10:54 Cozaar - PO 100 mg DAILY [facility] Administration Metoprolol Tartrate 25 mg 06/03/20 10:00 06/04/20 22:10 Lopressor - PO 25 mg BID [facility] Administration Tamsulosin HCl 0.4 mg 06/03/20 08:30 06/04/20 10:55 Flomax - PO 0.4 mg DAILY@0830 [facility] Administration Review of Systems 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 Vital Signs: Last Vital Signs Temp Pulse Resp BP Pulse Ox 97.3 F L 83 20 150/92 98 06/05/20 02:00 06/05/20 02:00 06/05/20 02:00 06/05/20 02:00 06/04/20 21:00 Intake & Output 06/02/20 06/03/20 06/04/20 06/05/20 23:59 23:59 23:59 23:59 Intake Total 345 1034 2126 Output Total 1400 1080 1000 350 Balance -1055 -46 1126 -350 Weight 172 lb 12.8 oz Neck: Supple Negative JVD Respiratory: Diminished Breath Sounds Bilaterally- Bases Cardiovascular: S1 S2 Regular Rate Rhythm Gastrointestinal: Soft Benign Normal Bowel Sounds Ext: Left lower extremity below knee amputation Labs: CBC, BMP 06/04/20 06:00 06/04/20 06:00 Hepatic Panel Total Bilirubin 0.8 mg/dL (0.2-1) 06/03/20 21:05 AST 25 U/L (15-37) 06/03/20 21:05 ALT 149 U/L (13-61) H 06/03/20 21:05 Alkaline Phosphatase 198 U/L (45-117) H 06/03/20 21:05 Albumin 2.1 g/dl (3.4-5.0) L 06/03/20 21:05 INR, PTT INR Cancelled 06/03/20 21:05 Fibrinogen 298.0 mg/dL (238-498) 05/26/20 05:16 Assessment/Plan ASSESSMENT: 1. Acute respiratory failure, suspected pneumonitis, clinically improving 2. Coronary artery disease angina pectoris 3. 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 Hypertensive cardiovascular disease 5. Diabetes mellitus 6. Hypercholesterolemia 7. History of cerebrovascular disease with residual deficit 8. Chronic kidney disease with acute exacerbation 9. Hypernatremia 10. Anemia PLAN: 1. Continue Cozaar therapy 2. Continue Norvasc therapy 3. Continue Lopressor therapy and dose titration as needed 4. Continue to withhold diuretic therapy in view of the above-noted hypernatremia 5. Continue Ecotrin therapy 6. Continue Lipitor therapy 7. Correction of hypernatremia as per renal service Erendira Narvaez MD
[2020-06-05] MEDS: METOPROLOL TARTRATE 25 MG TABLET (FP) PO SCH ×2 (09:17→21:53)
[2020-06-05] MEDS: FERROUS SO4 325 MG TABLET (FP) PO SCH ×2 (09:17→21:53)
[2020-06-05] MEDS: TAMSULOSIN HCL 0.4 MG CAP PO SCH (09:17)
[2020-06-05] MEDS: COLLAGENASE CLOSTRIDIUM HIST. 30 GRAMS TUBE TP SCH (09:18)
[2020-06-05] MEDS: amLODIPine BESYLATE 10 MG TABLET (FP) PO SCH (09:18)
[2020-06-05] MEDS: HEPARIN NA (PORCINE) 5,000 UNITS/ML 1ML VIAL SQ SCH ×2 (09:18→21:53)
[2020-06-05] MEDS: DEXTROSE 5%-WATER - 1,000 ML IV SCH (09:18)
[2020-06-05] MEDS: LOSARTAN POTASSIUM 50 MG TABLET (FP) PO SCH (09:18)
[2020-06-05] MEDS: ASPIRIN COATED 81 MG TABLET.EC PO SCH (09:18)
[2020-06-05] MEDS: FAMOTIDINE 20 MG TABLET PO SCH (09:18)
--- NOTE | 2020-06-05 13:15 | PN ---
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 (short form) - Note 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: PULMONARY Somnolent but arousable. No fevers recorded. Vital Signs Period Temp Pulse Resp BP Sys/Dobson Pulse Ox Last 24 Hr 97.3 F-97.8 F 80-87 20-21 95-155/57-93 97-98 Gen: somnolent Heart: RRR Lung: scattered rhonchi Abd: soft, nontender Ext: no edema, L BKA CBC, BMP 06/04/20 06:00 06/04/20 06:00 Active Medications Acetaminophen (Tylenol Oral Solution -) 650 mg PO Q4H PRN PRN Reason: PAIN 1-3 Amlodipine Besylate (Norvasc -) 10 mg PO DAILY [facility] Last Admin: 06/05/20 09:18 Dose: 10 mg Documented by: Aspirin (Ecotrin -) 81 mg PO DAILY [facility] Last Admin: 06/05/20 09:18 Dose: 81 mg Documented by: Atorvastatin Calcium (Lipitor -) 20 mg PO HS [facility] Last Admin: 06/04/20 22:10 Dose: 20 mg Documented by: Collagenase (Santyl -) 1 applic TP DAILY [facility]; Protocol Last Admin: 06/05/20 09:18 Dose: 1 applic Documented by: Famotidine (Pepcid -) 20 mg PO DAILY [facility] Last Admin: 06/05/20 09:18 Dose: 20 mg Documented by: Ferrous Sulfate (Feosol -) 325 mg PO BID [facility] Last Admin: 06/05/20 09:17 Dose: 325 mg Documented by: Heparin Sodium (Porcine) (Heparin -) 5,000 unit SQ BID [facility] Last Admin: 06/05/20 09:18 Dose: 5,000 unit Documented by: Dextrose (D5w -) 1,000 mls @ 83 mls/hr IV Q12H [facility] Last Admin: 06/05/20 09:18 Dose: 83 mls/hr Documented by: Insulin Aspart (Novolog Vial Sliding Scale -) 1 vial SQ TID [facility]; Protocol Last Admin: 06/05/20 06:41 Dose: 6 units Documented by: Losartan Potassium (Cozaar -) 100 mg PO DAILY [facility] Last Admin: 06/05/20 09:18 Dose: 100 mg Documented by: Metoprolol Tartrate (Lopressor -) 25 mg PO BID [facility] Last Admin: 06/05/20 09:17 Dose: 25 mg Documented by: Tamsulosin HCl (Flomax -) 0.4 mg PO DAILY@0830 [facility] Last Admin: 06/05/20 09:17 Dose: 0.4 mg Documented by: A/P Acute Hypoxic Respiratory Failure improved Pneumonia UTI LV Diastolic Dysfunction Suspected Amyloidosis +Troponins likely Demand Ischemia HTN DM Hyperlipidemia Anemia Multiple small acute cva's - antibiotics per ID - O2 to keep SpO2 >90% - aspiration precautions - PO as tolerated - DVT prophylaxis
--- NOTE | 2020-06-05 13:18 | PN ---
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, Physician Chief Complaint: AWAKE MORE ALERT APPEARS TIRED - Current Medication List Current Medications: Active Medications Acetaminophen (Tylenol Oral Solution -) 650 mg PO Q4H PRN PRN Reason: PAIN 1-3 Amlodipine Besylate (Norvasc -) 10 mg PO DAILY [facility] Last Admin: 06/05/20 09:18 Dose: 10 mg Documented by: Aspirin (Ecotrin -) 81 mg PO DAILY [facility] Last Admin: 06/05/20 09:18 Dose: 81 mg Documented by: Atorvastatin Calcium (Lipitor -) 20 mg PO HS [facility] Last Admin: 06/04/20 22:10 Dose: 20 mg Documented by: Collagenase (Santyl -) 1 applic TP DAILY [facility]; Protocol Last Admin: 06/05/20 09:18 Dose: 1 applic Documented by: Famotidine (Pepcid -) 20 mg PO DAILY [facility] Last Admin: 06/05/20 09:18 Dose: 20 mg Documented by: Ferrous Sulfate (Feosol -) 325 mg PO BID [facility] Last Admin: 06/05/20 09:17 Dose: 325 mg Documented by: Heparin Sodium (Porcine) (Heparin -) 5,000 unit SQ BID [facility] Last Admin: 06/05/20 09:18 Dose: 5,000 unit Documented by: Dextrose (D5w -) 1,000 mls @ 83 mls/hr IV Q12H [facility] Last Admin: 06/05/20 09:18 Dose: 83 mls/hr Documented by: Insulin Aspart (Novolog Vial Sliding Scale -) 1 vial SQ TID [facility]; Protocol Last Admin: 06/05/20 06:41 Dose: 6 units Documented by: Losartan Potassium (Cozaar -) 100 mg PO DAILY [facility] Last Admin: 06/05/20 09:18 Dose: 100 mg Documented by: Metoprolol Tartrate (Lopressor -) 25 mg PO BID [facility] Last Admin: 06/05/20 09:17 Dose: 25 mg Documented by: Tamsulosin HCl (Flomax -) 0.4 mg PO DAILY@0830 [facility] Last Admin: 06/05/20 09:17 Dose: 0.4 mg Documented by: - Objective Vital Signs: Vital Signs Temperature 97.3 F L 06/05/20 10:00 Pulse Rate 80 06/05/20 10:00 Respiratory Rate 21 H 06/05/20 10:00 Blood Pressure 155/81 06/05/20 10:00 O2 Sat by Pulse Oximetry (%) 97 06/05/20 10:00 Constitutional: Yes: Mild Distress Cardiovascular: Yes: Pulse Irregular Gastrointestinal: Yes: Soft Musculoskeletal: Yes: Muscle Weakness Extremities: Yes: Amputation Edema: No Wound/Incision: Yes: Other Neurological: Yes: Pre-Existing Deficit Labs: CBC, BMP 06/04/20 06:00 06/04/20 06:00 INR, PTT INR Cancelled 06/03/20 21:05 Fibrinogen 298.0 mg/dL (238-498) 05/26/20 05:16 Problem List - Problems (1) Diabetic foot ulcer Code(s): E11.621 - TYPE 2 DIABETES MELLITUS WITH FOOT ULCER; L97.509 - NON- PRESSURE CHRONIC ULCER OTH PRT UNSP FOOT W UNSP SEVERITY Qualifiers: Diabetes mellitus type: type 1 Laterality: right (2) Sepsis Code(s): A41.9 - SEPSIS, UNSPECIFIED ORGANISM (3) Septic shock Code(s): A41.9 - SEPSIS, UNSPECIFIED ORGANISM; R65.21 - SEVERE SEPSIS WITH SEPTIC SHOCK (4) Acute on chronic renal failure Code(s): N17.9 - ACUTE KIDNEY FAILURE, UNSPECIFIED; N18.9 - CHRONIC KIDNEY DISEASE, UNSPECIFIED Qualifiers: Acute renal failure type: unspecified Chronic kidney disease stage: unspecified stage Qualified Code(s): N17.9 - Acute kidney failure, unspecified; N18.9 - Chronic kidney disease, unspecified (5) Amyloid disease Code(s): E85.9 - AMYLOIDOSIS, UNSPECIFIED (6) Anemia Code(s): D64.9 - ANEMIA, UNSPECIFIED (7) Bacteremia Code(s): R78.81 - BACTEREMIA (8) CHF (congestive heart failure) Code(s): I50.9 - HEART FAILURE, UNSPECIFIED Qualifiers: Heart failure type: unspecified Heart failure chronicity: unspecified Qualified Code(s): I50.9 - Heart failure, unspecified (9) Amputated left leg Code(s): S88.912A - COMPLETE TRAUMATIC AMPUTATION OF L LOW LEG, LEVEL UNSP, INIT Assessment/Plan RESPIRATORY SUPPORT, 02NC,, NEBS, IV ABX ID F/U ON DURATION OF ABX APPRECIATED SWALLOW EVAL MODIFIED BARIUM PENDING PT EVAL SNF WHEN THERAPY COMPLETED CLEARED FOR DC PLANNING [facility]
[2020-06-05 15:09] VITALS: BMI 28.1
--- NOTE | 2020-06-05 15:48 | PN ---
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 (short form) - Note 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: RENAL pt is very somnolent apparently she awakened to eat but during my exam she does not awaken Last Vital Signs Temp Pulse Resp BP Pulse Ox 97.7 F 79 22 H 141/77 97 06/05/20 13:55 06/05/20 13:55 06/05/20 13:55 06/05/20 13:55 06/05/20 10:00 lungs clear anteriorly cvs s1s2 rr abd soft ext no edema neuro somnolent CBC, BMP 06/04/20 06:00 06/04/20 06:00 Current Medications Generic Name Dose Route Start Last Admin Trade Name Freq PRN Reason Stop Dose Admin Acetaminophen 650 mg 06/03/20 00:33 Tylenol Oral Solution - PO Q4H PRN PAIN 1-3 Amlodipine Besylate 10 mg 06/03/20 13:15 06/05/20 09:18 Norvasc - PO 10 mg DAILY [facility] Administration Aspirin 81 mg 06/03/20 19:15 06/05/20 09:18 Ecotrin - PO 81 mg DAILY [facility] Administration Atorvastatin Calcium 20 mg 06/02/20 22:00 06/04/20 22:10 Lipitor - PO 20 mg HS [facility] Administration Collagenase 1 applic 06/03/20 10:00 06/05/20 09:18 Santyl - TP 1 applic DAILY [facility] Administration Protocol Famotidine 20 mg 06/03/20 10:00 06/05/20 09:18 Pepcid - PO 20 mg DAILY [facility] Administration Ferrous Sulfate 325 mg 06/03/20 10:00 06/05/20 09:17 Feosol - PO 325 mg BID [facility] Administration Heparin Sodium (Porcine) 5,000 unit 06/03/20 10:00 06/05/20 09:18 Heparin - SQ 5,000 unit BID [facility] Administration Dextrose 1,000 mls @ 83 mls/hr 06/04/20 10:15 06/05/20 09:18 D5w - IV 83 mls/hr Q12H [facility] Administration Insulin Aspart 1 vial 06/03/20 06:00 06/05/20 13:28 Novolog Vial Sliding Scale - SQ 6 units TID [facility] Administration Protocol Losartan Potassium 100 mg 06/03/20 10:00 06/05/20 09:18 Cozaar - PO 100 mg DAILY [facility] Administration Metoprolol Tartrate 25 mg 06/03/20 10:00 06/05/20 09:17 Lopressor - PO 25 mg BID [facility] Administration Tamsulosin HCl 0.4 mg 06/03/20 08:30 06/05/20 09:17 Flomax - PO 0.4 mg DAILY@0830 [facility] Administration 70 year old woman with history of systolic heart failure, CKD with baseline Cr of 1.4, DM, Chronic osteomylitis who presented form the [place] with respiratory distress and found to have respiratory failure requiring intubation with acute kidney injury. 1. Acute respiratory failure secondary to suspected pneumonia 2. Sepsis from UTI vs. PNA 3. Lactic acidosis in setting of sepsis 4. Acute on chronic renal insufficiency secondary to sepsis/renal hypoprofusion 5. Hx of CHF/Pleural effusions 6. Elevated troponins 7. Hyperkalemia 8. Acute CVA seen on MRI. 9. Suspected Amyloidosis PLAN need to repeat labs to see if d5w needs to be adjusted not sure why she is on tamsulosin, would consider discontinuation would check chest xray MV
[2020-06-05 18:05] LABS: BLOOD UREA NITROGEN 27.7 mg/dL (7-18); CALCIUM 8.7 mg/dL (8.5-10.1); CREATININE 1.8 mg/dL (0.55-1.3); POTASSIUM 3.5 mmol/L (3.5-5.1)
--- NOTE | 2020-06-05 18:16 | PN ---
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, Physician History of Present Illness: Pt remains somnolent but arousable, weak. Afebrile, without notable distress. - Current Medication List Current Medications: Active Medications Acetaminophen (Tylenol Oral Solution -) 650 mg PO Q4H PRN PRN Reason: PAIN 1-3 Amlodipine Besylate (Norvasc -) 10 mg PO DAILY [facility] Last Admin: 06/05/20 09:18 Dose: 10 mg Documented by: Aspirin (Ecotrin -) 81 mg PO DAILY [facility] Last Admin: 06/05/20 09:18 Dose: 81 mg Documented by: Atorvastatin Calcium (Lipitor -) 20 mg PO HS [facility] Last Admin: 06/04/20 22:10 Dose: 20 mg Documented by: Collagenase (Santyl -) 1 applic TP DAILY [facility]; Protocol Last Admin: 06/05/20 09:18 Dose: 1 applic Documented by: Famotidine (Pepcid -) 20 mg PO DAILY [facility] Last Admin: 06/05/20 09:18 Dose: 20 mg Documented by: Ferrous Sulfate (Feosol -) 325 mg PO BID [facility] Last Admin: 06/05/20 09:17 Dose: 325 mg Documented by: Heparin Sodium (Porcine) (Heparin -) 5,000 unit SQ BID [facility] Last Admin: 06/05/20 09:18 Dose: 5,000 unit Documented by: Dextrose (D5w -) 1,000 mls @ 83 mls/hr IV Q12H [facility] Last Admin: 06/05/20 09:18 Dose: 83 mls/hr Documented by: Insulin Aspart (Novolog Vial Sliding Scale -) 1 vial SQ TID [facility]; Protocol Last Admin: 06/05/20 13:28 Dose: 6 units Documented by: Losartan Potassium (Cozaar -) 100 mg PO DAILY [facility] Last Admin: 06/05/20 09:18 Dose: 100 mg Documented by: Metoprolol Tartrate (Lopressor -) 25 mg PO BID [facility] Last Admin: 06/05/20 09:17 Dose: 25 mg Documented by: Tamsulosin HCl (Flomax -) 0.4 mg PO DAILY@0830 [facility] Last Admin: 06/05/20 09:17 Dose: 0.4 mg Documented by: - Objective Vital Signs: Vital Signs Temperature 97.7 F 06/05/20 13:55 Pulse Rate 79 06/05/20 13:55 Respiratory Rate 22 H 06/05/20 13:55 Blood Pressure 141/77 06/05/20 13:55 O2 Sat by Pulse Oximetry (%) 97 06/05/20 10:00 Constitutional: Yes: No Distress Neck: Yes: Supple Cardiovascular: Yes: Regular Rate and Rhythm Respiratory: Yes: Regular Gastrointestinal: Yes: Normal Bowel Sounds, Soft Genitourinary: Yes: Lynn Present Integumentary: Yes: WNL Neurological: Yes: Lethargy Labs: CBC, BMP 06/04/20 06:00 06/05/20 16:49 INR, PTT INR Cancelled 06/03/20 21:05 Fibrinogen 298.0 mg/dL (238-498) 05/26/20 05:16 Microbiology 05/29/20 06:10 Blood - Peripheral Venous Blood Culture - Final NO GROWTH AFTER 5 DAYS INCUBATION 05/29/20 06:10 Blood - Peripheral Venous Blood Culture - Final NO GROWTH AFTER 5 DAYS INCUBATION 05/25/20 18:30 Sputum - Endotrachea Suction/Ventilator Gram Stain - Final 05/25/20 18:30 Sputum - Endotrachea Suction/Ventilator Sputum Culture - Final Yeast Like Organism 05/25/20 09:40 Blood - Peripheral Venous Blood Culture - Final Lactose Fermenting Neg Bacilli 05/25/20 09:35 Blood - Peripheral Venous Blood Culture - Final Citrobacter Koseri 05/25/20 09:40 Urine - Urine - Catheterized Urine Culture - Final NO GROWTH OBTAINED Problem List - Problems (1) CVA (cerebral vascular accident) Code(s): I63.9 - CEREBRAL INFARCTION, UNSPECIFIED (2) Diabetic foot ulcer Code(s): E11.621 - TYPE 2 DIABETES MELLITUS WITH FOOT ULCER; L97.509 - NON- PRESSURE CHRONIC ULCER OTH PRT UNSP FOOT W UNSP SEVERITY Qualifiers: Diabetes mellitus type: type 1 Laterality: right (3) HTN (hypertension) Code(s): I10 - ESSENTIAL (PRIMARY) HYPERTENSION (4) Sepsis Code(s): A41.9 - SEPSIS, UNSPECIFIED ORGANISM (5) Anemia Code(s): D64.9 - ANEMIA, UNSPECIFIED (6) Bacteremia Code(s): R78.81 - BACTEREMIA (7) CHF (congestive heart failure) Code(s): I50.9 - HEART FAILURE, UNSPECIFIED Qualifiers: Heart failure type: unspecified Heart failure chronicity: unspecified Qualified Code(s): I50.9 - Heart failure, unspecified Assessment/Plan Multilobar PNA Possible Aspiration Gram neg bacteremia DM diabetic foot ulcer -- Pt is s/p course of broad spectrum antibiotics, last blood cultures negative -- remains somnolent, vital stable/afebrile -- suggest repeat blood/urine cultures, CXR -- monitor closely
[2020-06-05] MEDS: ATORVASTATIN CA 20 MG TABLET (FP) PO SCH (21:53)
[2020-06-06] MEDS: DEXTROSE 5%-WATER - 1,000 ML IV SCH ×2 (01:00→09:45)
[2020-06-06] MEDS: INSULIN SLIDING SCALE (NOVOLOG) 1 VIAL SQ SCH ×3 (06:10→22:25)
--- NOTE | 2020-06-06 06:32 | PN ---
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 (short form) - Note 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: Coverage for Dr. Haroon Taylor Chief Complaint: Events noted, notes reviewed, resting in bed, no distress, remains noncommunicative, responds by opening her eyes History of Present Illness: Seen and examined on telemetry. Events noted, notes reviewed, resting in bed, no distress, remains noncommunicative, responds by opening her eyes Medications: Current Medications Generic Name Dose Route Start Last Admin Trade Name Freq PRN Reason Stop Dose Admin Acetaminophen 650 mg 06/03/20 00:33 Tylenol Oral Solution - PO Q4H PRN PAIN 1-3 Amlodipine Besylate 10 mg 06/03/20 13:15 06/05/20 09:18 Norvasc - PO 10 mg DAILY [facility] Administration Aspirin 81 mg 06/03/20 19:15 06/05/20 09:18 Ecotrin - PO 81 mg DAILY [facility] Administration Atorvastatin Calcium 20 mg 06/02/20 22:00 06/05/20 21:53 Lipitor - PO 20 mg HS [facility] Administration Collagenase 1 applic 06/03/20 10:00 06/05/20 09:18 Santyl - TP 1 applic DAILY [facility] Administration Protocol Famotidine 20 mg 06/03/20 10:00 06/05/20 09:18 Pepcid - PO 20 mg DAILY [facility] Administration Ferrous Sulfate 325 mg 06/03/20 10:00 06/05/20 21:53 Feosol - PO 325 mg BID [facility] Administration Heparin Sodium (Porcine) 5,000 unit 06/03/20 10:00 06/05/20 21:53 Heparin - SQ 5,000 unit BID [facility] Administration Dextrose 1,000 mls @ 83 mls/hr 06/04/20 10:15 06/06/20 01:00 D5w - IV 83 mls/hr Q12H [facility] Administration Insulin Aspart 1 vial 06/03/20 06:00 06/06/20 06:10 Novolog Vial Sliding Scale - SQ 4 units TID [facility] Administration Protocol Losartan Potassium 100 mg 06/03/20 10:00 06/05/20 09:18 Cozaar - PO 100 mg DAILY [facility] Administration Metoprolol Tartrate 25 mg 06/03/20 10:00 06/05/20 21:53 Lopressor - PO 25 mg BID [facility] Administration Tamsulosin HCl 0.4 mg 06/03/20 08:30 06/05/20 09:17 Flomax - PO 0.4 mg DAILY@0830 [facility] Administration Review of Systems 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 Vital Signs: Last Vital Signs Temp Pulse Resp BP Pulse Ox 97.8 F 84 20 123/79 97 06/06/20 05:00 06/06/20 05:00 06/06/20 05:00 06/06/20 05:00 06/06/20 05:00 Intake & Output 06/03/20 06/04/20 06/05/20 06/06/20 23:59 23:59 23:59 23:59 Intake Total 1034 2126 2330 1000 Output Total 1080 1000 1500 Balance -46 4055 015 2737 Weight 169 lb Neck: Supple Negative JVD Respiratory: Diminished Breath Sounds Bilaterally- Bases Cardiovascular: S1 S2 Regular Rate Rhythm Gastrointestinal: Soft Benign Normal Bowel Sounds Ext: Left lower extremity below knee amputation Labs: CBC, BMP 06/04/20 06:00 06/05/20 16:49 Hepatic Panel Total Bilirubin 0.8 mg/dL (0.2-1) 06/03/20 21:05 AST 25 U/L (15-37) 06/03/20 21:05 ALT 149 U/L (13-61) H 06/03/20 21:05 Alkaline Phosphatase 198 U/L (45-117) H 06/03/20 21:05 Albumin 2.1 g/dl (3.4-5.0) L 06/03/20 21:05 INR, PTT INR Cancelled 06/03/20 21:05 Fibrinogen 298.0 mg/dL (238-498) 05/26/20 05:16 Assessment/Plan ASSESSMENT: 1. Acute respiratory failure, suspected pneumonitis, clinically improving 2. Coronary artery disease angina pectoris 3. 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 Hypertensive cardiovascular disease 5. Diabetes mellitus 6. Hypercholesterolemia 7. History of cerebrovascular disease with residual deficit 8. Chronic kidney disease with acute exacerbation 9. Hypernatremia 10. Anemia PLAN: 1. Continue Cozaar therapy 2. Continue Norvasc therapy 3. Continue Lopressor therapy and dose titration as needed 4. Continue to withhold diuretic therapy in view of the above-noted h ypernatremia 5. Continue Ecotrin therapy 6. Continue Lipitor therapy 7. Correction of hypernatremia as per renal service Erendira Narvaez MD
--- NOTE | 2020-06-06 08:50 | PN ---
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, Physician - Current Medication List Current Medications: Active Medications Acetaminophen (Tylenol Oral Solution -) 650 mg PO Q4H PRN PRN Reason: PAIN 1-3 Amlodipine Besylate (Norvasc -) 10 mg PO DAILY [facility] Last Admin: 06/05/20 09:18 Dose: 10 mg Documented by: Aspirin (Ecotrin -) 81 mg PO DAILY [facility] Last Admin: 06/05/20 09:18 Dose: 81 mg Documented by: Atorvastatin Calcium (Lipitor -) 20 mg PO HS [facility] Last Admin: 06/05/20 21:53 Dose: 20 mg Documented by: Collagenase (Santyl -) 1 applic TP DAILY [facility]; Protocol Last Admin: 06/05/20 09:18 Dose: 1 applic Documented by: Famotidine (Pepcid -) 20 mg PO DAILY [facility] Last Admin: 06/05/20 09:18 Dose: 20 mg Documented by: Ferrous Sulfate (Feosol -) 325 mg PO BID [facility] Last Admin: 06/05/20 21:53 Dose: 325 mg Documented by: Heparin Sodium (Porcine) (Heparin -) 5,000 unit SQ BID [facility] Last Admin: 06/05/20 21:53 Dose: 5,000 unit Documented by: Dextrose (D5w -) 1,000 mls @ 83 mls/hr IV Q12H [facility] Last Admin: 06/06/20 01:00 Dose: 83 mls/hr Documented by: Insulin Aspart (Novolog Vial Sliding Scale -) 1 vial SQ TID [facility]; Protocol Last Admin: 06/06/20 06:10 Dose: 4 units Documented by: Losartan Potassium (Cozaar -) 100 mg PO DAILY [facility] Last Admin: 06/05/20 09:18 Dose: 100 mg Documented by: Metoprolol Tartrate (Lopressor -) 25 mg PO BID [facility] Last Admin: 06/05/20 21:53 Dose: 25 mg Documented by: Tamsulosin HCl (Flomax -) 0.4 mg PO DAILY@0830 [facility] Last Admin: 06/05/20 09:17 Dose: 0.4 mg Documented by: - Objective Vital Signs: Vital Signs Temperature 97.8 F 06/06/20 05:00 Pulse Rate 84 06/06/20 05:00 Respiratory Rate 20 06/06/20 05:00 Blood Pressure 123/79 06/06/20 05:00 O2 Sat by Pulse Oximetry (%) 97 06/06/20 05:00 Labs: CBC, BMP 06/04/20 06:00 06/05/20 16:49 INR, PTT INR Cancelled 06/03/20 21:05 Fibrinogen 298.0 mg/dL (238-498) 05/26/20 05:16 Problem List - Problems (1) Diabetic foot ulcer Code(s): E11.621 - TYPE 2 DIABETES MELLITUS WITH FOOT ULCER; L97.509 - NON- PRESSURE CHRONIC ULCER OTH PRT UNSP FOOT W UNSP SEVERITY Qualifiers: Diabetes mellitus type: type 1 Laterality: right (2) Sepsis Code(s): A41.9 - SEPSIS, UNSPECIFIED ORGANISM (3) Septic shock Code(s): A41.9 - SEPSIS, UNSPECIFIED ORGANISM; R65.21 - SEVERE SEPSIS WITH SEPTIC SHOCK (4) Acute on chronic renal failure Code(s): N17.9 - ACUTE KIDNEY FAILURE, UNSPECIFIED; N18.9 - CHRONIC KIDNEY DISEASE, UNSPECIFIED Qualifiers: Acute renal failure type: unspecified Chronic kidney disease stage: unspecified stage Qualified Code(s): N17.9 - Acute kidney failure, unspecified; N18.9 - Chronic kidney disease, unspecified (5) Amyloid disease Code(s): E85.9 - AMYLOIDOSIS, UNSPECIFIED (6) Anemia Code(s): D64.9 - ANEMIA, UNSPECIFIED (7) Bacteremia Code(s): R78.81 - BACTEREMIA (8) CHF (congestive heart failure) Code(s): I50.9 - HEART FAILURE, UNSPECIFIED Qualifiers: Heart failure type: unspecified Heart failure chronicity: unspecified Qualified Code(s): I50.9 - Heart failure, unspecified (9) Amputated left leg Code(s): S88.912A - COMPLETE TRAUMATIC AMPUTATION OF L LOW LEG, LEVEL UNSP, INIT
[2020-06-06] MEDS: METOPROLOL TARTRATE 25 MG TABLET (FP) PO SCH ×2 (09:44→22:25)
[2020-06-06] MEDS: ASPIRIN COATED 81 MG TABLET.EC PO SCH (09:44)
[2020-06-06] MEDS: FERROUS SO4 325 MG TABLET (FP) PO SCH ×2 (09:44→22:25)
[2020-06-06] MEDS: amLODIPine BESYLATE 10 MG TABLET (FP) PO SCH (09:44)
[2020-06-06] MEDS: TAMSULOSIN HCL 0.4 MG CAP PO SCH (09:44)
[2020-06-06] MEDS: COLLAGENASE CLOSTRIDIUM HIST. 30 GRAMS TUBE TP SCH (09:45)
[2020-06-06] MEDS: LOSARTAN POTASSIUM 50 MG TABLET (FP) PO SCH (09:45)
[2020-06-06] MEDS: FAMOTIDINE 20 MG TABLET PO SCH (09:45)
[2020-06-06] MEDS: HEPARIN NA (PORCINE) 5,000 UNITS/ML 1ML VIAL SQ SCH ×2 (09:45→22:25)
--- NOTE | 2020-06-06 11:48 | PN ---
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 (short form) - Note 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: Neurology - Admission Chief Complaint: Facial droop, RUE weakness History of Present Illness: 70 year old female with a significant PMHx of Uncontrolled DM, Diabetic foot ulcer on R. foot, Chronic osteomyelitis of right foot, Diabetic neuropathy, Left leg below knee amputation, OA, Iron deficiency anemia, HLD, HTN, Charcot's joint, ESBL resistance and CHF who presents to the ED from [facility] for evaluation of hypoxia and AMS. The patient was previously discharged on 05/23 after having been treated for G(-) Bacteremia. Patient has been getting medical/infectious management. I was contacted 06/02 but Resident indicating that patient had right facial droop along with right upper extremity weakness and confusion. Patient symptoms improved and TPA not given. Advised noncontrast head CT which was without acute changes as well as CTA of the head to confirm no large vessel occlusion and was also negative. Advised to give aspirin 325 mg on 06/02 and start 81 mg daily as of 06/03. Recommended stroke work up including MRI brain which was completed and showed area of bilateral infarcts, suspicious for embolic phenomenon. carotid Dopplers completed and demonstrated no evidence of high-grade stenosis on the left but right side could not be visualized clearly. Overnight on 06/04/20 (Sunday into Sunday) contacted by resident due to patient having altered mental status. Explained that patient with underlying sepsis and did not have focal deficits and seem more generalized delirium. Repeat noncontrast head CT was recommended and did not show any acute changes. Somnolent and arousable but minimally verbal, appears fatigued. getting continued mgmt for toxic metabolic encephalopathy rand infection. CTA neck ordered, not yet completed due to creatinine clearance. Active Medications Acetaminophen (Tylenol Oral Solution -) 650 mg PO Q4H PRN PRN Reason: PAIN 1-3 Amlodipine Besylate (Norvasc -) 10 mg PO DAILY [facility] Last Admin: 06/06/20 09:44 Dose: 10 mg Documented by: Aspirin (Ecotrin -) 81 mg PO DAILY [facility] Last Admin: 06/06/20 09:44 Dose: 81 mg Documented by: Atorvastatin Calcium (Lipitor -) 20 mg PO HS [facility] Last Admin: 06/05/20 21:53 Dose: 20 mg Documented by: Collagenase (Santyl -) 1 applic TP DAILY [facility]; Protocol Last Admin: 06/06/20 09:45 Dose: 1 applic Documented by: Famotidine (Pepcid -) 20 mg PO DAILY [facility] Last Admin: 06/06/20 09:45 Dose: 20 mg Documented by: Ferrous Sulfate (Feosol -) 325 mg PO BID [facility] Last Admin: 06/06/20 09:44 Dose: 325 mg Documented by: Heparin Sodium (Porcine) (Heparin -) 5,000 unit SQ BID [facility] Last Admin: 06/06/20 09:45 Dose: 5,000 unit Documented by: Dextrose (D5w -) 1,000 mls @ 83 mls/hr IV Q12H [facility] Last Admin: 06/06/20 09:45 Dose: 83 mls/hr Documented by: Insulin Aspart (Novolog Vial Sliding Scale -) 1 vial SQ TID [facility]; Protocol Last Admin: 06/06/20 06:10 Dose: 4 units Documented by: Losartan Potassium (Cozaar -) 100 mg PO DAILY [facility] Last Admin: 06/06/20 09:45 Dose: 100 mg Documented by: Metoprolol Tartrate (Lopressor -) 25 mg PO BID [facility] Last Admin: 06/06/20 09:44 Dose: 25 mg Documented by: Tamsulosin HCl (Flomax -) 0.4 mg PO DAILY@0830 [facility] Last Admin: 06/06/20 09:44 Dose: 0.4 mg Documented by: Physical Examination Vital Signs Period Temp Pulse Resp BP Sys/Dobson Pulse Ox Last 24 Hr 96.6 F-98.2 F 79-88 20-22 123-145/73-98 97-97 Constitutional: Yes: Well Nourished, No Distress, Calm Cardiovascular: Yes: Regular Rate and Rhythm Respiratory: Yes: Mechanically Ventilated, Rhonchi (diffuse) Gastrointestinal: Yes: Soft, Hypoactive Bowel Sounds Renal/: Yes: Lynn Present Edema: No Peripheral Pulses WNL: Yes Neurological: AWake, right facial weakness minimal, moves extremities grossly but not participating in confrontation testing, sensory intact, gait deferred Labs: CBCD WBC 8.3 K/mm3 (4.0-10.0) 06/04/20 06:00 RBC 3.37 M/mm3 (3.60-5.2) L 06/04/20 06:00 Hgb 9.2 GM/dL (10.7-15.3) L 06/04/20 06:00 Hct 29.0 % (32.4-45.2) L 06/04/20 06:00 MCV 86.2 fl (80-96) 06/04/20 06:00 MCHC 31.7 g/dl (32.0-36.0) L 06/04/20 06:00 RDW 20.0 % (11.6-15.6) H 06/04/20 06:00 Plt Count 268 K/MM3 (134-434) 06/04/20 06:00 MPV 9.2 fl (7.5-11.1) 06/04/20 06:00 CMP Sodium 146 mmol/L (136-145) H 06/05/20 16:49 Potassium 3.5 mmol/L (3.5-5.1) 06/05/20 16:49 Chloride 110 mmol/L (98-107) H 06/05/20 16:49 Carbon Dioxide 30 mmol/L (21-32) 06/05/20 16:49 Anion Gap 6 MMOL/L (8-16) L 06/05/20 16:49 BUN 27.7 mg/dL (7-18) H 06/05/20 16:49 Creatinine 1.8 mg/dL (0.55-1.3) H 06/05/20 16:49 Random Glucose 303 mg/dL (74-106) H 06/05/20 16:49 Calcium 8.7 mg/dL (8.5-10.1) 06/05/20 16:49 Total Bilirubin 0.8 mg/dL (0.2-1) 06/03/20 21:05 AST 25 U/L (15-37) 06/03/20 21:05 ALT 149 U/L (13-61) H 06/03/20 21:05 Alkaline Phosphatase 198 U/L (45-117) H 06/03/20 21:05 Total Protein 7.7 g/dl (6.4-8.2) 06/03/20 21:05 Albumin 2.1 g/dl (3.4-5.0) L 06/03/20 21:05 CARDIAC ENZYMES Creatine Kinase 28 U/L (26-192) 06/03/20 12:40 Troponin I 0.09 ng/ml (0.00-0.05) H 06/03/20 12:40 Plan: 70 year old female with a significant PMHx of Uncontrolled DM, Diabetic foot ulcer on R. foot, Chronic osteomyelitis of right foot, Diabetic neuropathy, Left leg below knee amputation, OA, Iron deficiency anemia, HLD, HTN, Charcot's joint, ESBL resistance and CHF who presents to the ED from [facility] for evaluation of hypoxia and AMS. The patient was previously discharged on 05/23 after having been treated for G(-) Bacteremia. Patient has been getting medical/infectious management. I was contacted 06/02 but Resident indicating that patient had right facial droop along with right upper extremity weakness and confusion. Patient symptoms improved and TPA not given. Advised noncontrast head CT which was without acute changes as well as CTA of the head to confirm no large vessel occlusion and was also negative. Advised to give aspirin 325 mg on 06/02 and start 81 mg daily as of 06/03. Recommended stroke work up including MRI brain which was completed overnight and showed area of bilateral infarcts, suspicious for embolic phenomenon. carotid Dopplers completed and demonstrated no evidence of high-grade stenosis on the left but right side could not be visualized clearly. Overnight on 06/04/20 (Sunday into Sunday) contacted by resident due to patient having altered mental status. Explained that patient with underlying sepsis and did not have focal deficits and seem more generalized delirium. Repeat noncontrast head CT was recommended and did not show any acute changes. getting continued mgmt for toxic metabolic encephalopathy rand infection. CTA/MRA ordered, not yet completed due to creatinine clearance. CTA neck ordered, not yet completed due to creatinine clearance. Conitnue ID follow up and mgmt. Monitor bp, <150/90 Recommended. Physical therapy as tolerated. frequent reorientation, maintain hydration. Monitor labs, continue close follow-up
--- NOTE | 2020-06-06 12:04 | PN ---
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 (short form) - Note 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: PULMONARY Somnolent but arousable. No fevers recorded. Vital Signs Period Temp Pulse Resp BP Sys/Dobson Pulse Ox Last 24 Hr 96.6 F-98.2 F 79-88 20-22 123-145/73-98 97-97 Gen: somnolent Heart: RRR Lung: scattered rhonchi Abd: soft, nontender Ext: no edema, L BKA CBC, BMP 06/04/20 06:00 06/05/20 16:49 Active Medications Acetaminophen (Tylenol Oral Solution -) 650 mg PO Q4H PRN PRN Reason: PAIN 1-3 Amlodipine Besylate (Norvasc -) 10 mg PO DAILY [facility] Last Admin: 06/06/20 09:44 Dose: 10 mg Documented by: Aspirin (Ecotrin -) 81 mg PO DAILY [facility] Last Admin: 06/06/20 09:44 Dose: 81 mg Documented by: Atorvastatin Calcium (Lipitor -) 20 mg PO HS [facility] Last Admin: 06/05/20 21:53 Dose: 20 mg Documented by: Collagenase (Santyl -) 1 applic TP DAILY [facility]; Protocol Last Admin: 06/06/20 09:45 Dose: 1 applic Documented by: Famotidine (Pepcid -) 20 mg PO DAILY [facility] Last Admin: 06/06/20 09:45 Dose: 20 mg Documented by: Ferrous Sulfate (Feosol -) 325 mg PO BID [facility] Last Admin: 06/06/20 09:44 Dose: 325 mg Documented by: Heparin Sodium (Porcine) (Heparin -) 5,000 unit SQ BID [facility] Last Admin: 06/06/20 09:45 Dose: 5,000 unit Documented by: Dextrose (D5w -) 1,000 mls @ 83 mls/hr IV Q12H [facility] Last Admin: 06/06/20 09:45 Dose: 83 mls/hr Documented by: Insulin Aspart (Novolog Vial Sliding Scale -) 1 vial SQ TID [facility]; Protocol Last Admin: 06/06/20 06:10 Dose: 4 units Documented by: Losartan Potassium (Cozaar -) 100 mg PO DAILY [facility] Last Admin: 06/06/20 09:45 Dose: 100 mg Documented by: Metoprolol Tartrate (Lopressor -) 25 mg PO BID [facility] Last Admin: 06/06/20 09:44 Dose: 25 mg Documented by: Tamsulosin HCl (Flomax -) 0.4 mg PO DAILY@0830 [facility] Last Admin: 06/06/20 09:44 Dose: 0.4 mg Documented by: A/P Acute Hypoxic Respiratory Failure improved Pneumonia UTI LV Diastolic Dysfunction Suspected Amyloidosis +Troponins likely Demand Ischemia HTN DM Hyperlipidemia Anemia Multiple small acute cva's - antibiotics per ID - O2 to keep SpO2 >90% - aspiration precautions - PO as tolerated - DVT prophylaxis
--- NOTE | 2020-06-06 15:46 | PN ---
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 (short form) - Note 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: RENAL Awake does not respond to questions Last Vital Signs Temp Pulse Resp BP Pulse Ox 98 F 86 20 147/84 97 06/06/20 14:10 06/06/20 09:00 06/06/20 14:10 06/06/20 14:10 06/06/20 09:00 lungs clear anteriorly cvs s1s2 rr abd soft ext no edema neuro awake CBC, BMP 06/04/20 06:00 06/05/20 16:49 Current Medications Generic Name Dose Route Start Last Admin Trade Name Freq PRN Reason Stop Dose Admin Acetaminophen 650 mg 06/03/20 00:33 Tylenol Oral Solution - PO Q4H PRN PAIN 1-3 Amlodipine Besylate 10 mg 06/03/20 13:15 06/06/20 09:44 Norvasc - PO 10 mg DAILY [facility] Administration Aspirin 81 mg 06/03/20 19:15 06/06/20 09:44 Ecotrin - PO 81 mg DAILY [facility] Administration Atorvastatin Calcium 20 mg 06/02/20 22:00 06/05/20 21:53 Lipitor - PO 20 mg HS [facility] Administration Collagenase 1 applic 06/03/20 10:00 06/06/20 09:45 Santyl - TP 1 applic DAILY [facility] Administration Protocol Famotidine 20 mg 06/03/20 10:00 06/06/20 09:45 Pepcid - PO 20 mg DAILY [facility] Administration Ferrous Sulfate 325 mg 06/03/20 10:00 06/06/20 09:44 Feosol - PO 325 mg BID [facility] Administration Heparin Sodium (Porcine) 5,000 unit 06/03/20 10:00 06/06/20 09:45 Heparin - SQ 5,000 unit BID [facility] Administration Dextrose 1,000 mls @ 83 mls/hr 06/04/20 10:15 06/06/20 09:45 D5w - IV 83 mls/hr Q12H [facility] Administration Insulin Aspart 1 vial 06/03/20 06:00 06/06/20 14:07 Novolog Vial Sliding Scale - SQ 4 units TID [facility] Administration Protocol Losartan Potassium 100 mg 06/03/20 10:00 06/06/20 09:45 Cozaar - PO 100 mg DAILY [facility] Administration Metoprolol Tartrate 25 mg 06/03/20 10:00 06/06/20 09:44 Lopressor - PO 25 mg BID [facility] Administration Tamsulosin HCl 0.4 mg 06/03/20 08:30 06/06/20 09:44 Flomax - PO 0.4 mg DAILY@0830 [facility] Administration 70 year old woman with history of systolic heart failure, CKD with baseline Cr of 1.4, DM, Chronic osteomylitis who presented form the [place] with respiratory distress and found to have respiratory failure requiring intubation with acute kidney injury. 1. Acute respiratory failure secondary to suspected pneumonia 2. Sepsis from UTI vs. PNA 3. Lactic acidosis in setting of sepsis 4. Acute on chronic renal insufficiency secondary to sepsis/renal hypoprofusion 5. Hx of CHF/Pleural effusions 6. Elevated troponins 7. Hyperkalemia 8. Acute CVA seen on MRI. 9. Suspected Amyloidosis PLAN can switch fluids to 1/2ns not sure why she is on tamsulosin, would consider discontinuation would check chest xray MV
--- NOTE | 2020-06-06 16:18 | DS ---
Physical Examination Vital Signs: Vital Signs Temperature 98 F 06/06/20 14:10 Pulse Rate 86 06/06/20 09:00 Respiratory Rate 20 06/06/20 14:10 Blood Pressure 147/84 06/06/20 14:10 O2 Sat by Pulse Oximetry (%) 97 06/06/20 09:00 Constitutional: Yes: No Distress Cardiovascular: Yes: Regular Rate and Rhythm Respiratory: Yes: On Nasal O2 Gastrointestinal: Yes: Soft Extremities: Yes: Amputation Labs: CBC, BMP 06/04/20 06:00 06/05/20 16:49 Discharge Summary Problems reviewed: Yes Reason For Visit: SEPSIS AMS PNEUMONIA Current Active Problems Amputated left leg (Acute) CVA (cerebral vascular accident) (Acute) Diabetic foot ulcer (Acute) HTN (hypertension) (Acute) Sepsis (Acute) Septic shock (Acute) Procedures: Principal: LABS/XRAYS/CTSCAN Hospital Course: ADMITTED FOR SEPSIS, INTUBATED RESPIRATORY DISTRESS IN ICU Plan of Treatment: IV ABX/NEBS/RESPIRATORY SUPPORT Goals: DC TO SNF Condition: Improved - Instructions Referrals: Romain Carvalho JR [Primary Care Provider] - [facility] - Home Medications Comprehensive Discharge Medication List: Ambulatory Orders Aspirin 81 mg PO DAILY 05/11/20 Atorvastatin Ca [Lipitor] 80 mg PO HS 05/11/20 Gabapentin 100 mg PO QID 05/11/20 Gabapentin 300 mg PO HS 05/11/20 Losartan Potassium 25 mg PO DAILY 05/11/20 Sennosides [Senno] 17.2 mg PO HS 05/11/20 Torsemide [Demadex -] 80 mg PO DAILY@0600 tablet 05/21/20 Chlorhexidine Gluconate [Hibiclens For Decolonization -] 1 applic TP DAILY 05/25/20 Glucagon - 1 mg IJ PRN 05/25/20 Insulin Glargine,Hum.rec.anlog [Basaglar Kwikpen U-100] 17 unit SQ HS 05/25/20 Insulin Lispro [Admelog Solostar] 7 unit SQ AC 05/25/20 Metoprolol Tartrate [Lopressor -] 50 mg PO DAILY 05/25/20 Polyethylene Glycol 3350 [Glycolax] 17 gm PO DAILY PRN 05/25/20
[2020-06-06] MEDS: SODIUM CHLORIDE 0.45% 1,000 ML IV SCH (18:29)
--- NOTE | 2020-06-06 19:54 | PN ---
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, Physician History of Present Illness: Pt less lethargic today, verbally responsive. No distress noted, afebrile. - Current Medication List Current Medications: Active Medications Acetaminophen (Tylenol Oral Solution -) 650 mg PO Q4H PRN PRN Reason: PAIN 1-3 Amlodipine Besylate (Norvasc -) 10 mg PO DAILY [facility] Last Admin: 06/06/20 09:44 Dose: 10 mg Documented by: Aspirin (Ecotrin -) 81 mg PO DAILY [facility] Last Admin: 06/06/20 09:44 Dose: 81 mg Documented by: Atorvastatin Calcium (Lipitor -) 20 mg PO HS [facility] Last Admin: 06/05/20 21:53 Dose: 20 mg Documented by: Collagenase (Santyl -) 1 applic TP DAILY [facility]; Protocol Last Admin: 06/06/20 09:45 Dose: 1 applic Documented by: Famotidine (Pepcid -) 20 mg PO DAILY [facility] Last Admin: 06/06/20 09:45 Dose: 20 mg Documented by: Ferrous Sulfate (Feosol -) 325 mg PO BID [facility] Last Admin: 06/06/20 09:44 Dose: 325 mg Documented by: Heparin Sodium (Porcine) (Heparin -) 5,000 unit SQ BID [facility] Last Admin: 06/06/20 09:45 Dose: 5,000 unit Documented by: Sodium Chloride (1/2 Normal Saline) 1,000 mls @ 75 mls/hr IV ASDIR [facility] Last Admin: 06/06/20 18:29 Dose: 75 mls/hr Documented by: Insulin Aspart (Novolog Vial Sliding Scale -) 1 vial SQ TID [facility]; Protocol Last Admin: 06/06/20 14:07 Dose: 4 units Documented by: Losartan Potassium (Cozaar -) 100 mg PO DAILY [facility] Last Admin: 06/06/20 09:45 Dose: 100 mg Documented by: Metoprolol Tartrate (Lopressor -) 25 mg PO BID [facility] Last Admin: 06/06/20 09:44 Dose: 25 mg Documented by: Tamsulosin HCl (Flomax -) 0.4 mg PO DAILY@0830 [facility] Last Admin: 06/06/20 09:44 Dose: 0.4 mg Documented by: - Objective Vital Signs: Vital Signs Temperature 98 F 06/06/20 14:10 Pulse Rate 86 06/06/20 09:00 Respiratory Rate 20 06/06/20 14:10 Blood Pressure 147/84 06/06/20 14:10 O2 Sat by Pulse Oximetry (%) 97 06/06/20 09:00 Constitutional: Yes: No Distress, Calm Cardiovascular: Yes: Regular Rate and Rhythm Respiratory: Yes: Regular Gastrointestinal: Yes: Normal Bowel Sounds, Soft Extremities: Yes: Other (Lt BKA) Neurological: Yes: Other (less lethargic) Labs: CBC, BMP 06/04/20 06:00 06/05/20 16:49 INR, PTT INR Cancelled 06/03/20 21:05 Fibrinogen 298.0 mg/dL (238-498) 05/26/20 05:16 Microbiology 05/29/20 06:10 Blood - Peripheral Venous Blood Culture - Final NO GROWTH AFTER 5 DAYS INCUBATION 05/29/20 06:10 Blood - Peripheral Venous Blood Culture - Final NO GROWTH AFTER 5 DAYS INCUBATION 05/25/20 18:30 Sputum - Endotrachea Suction/Ventilator Gram Stain - Final 05/25/20 18:30 Sputum - Endotrachea Suction/Ventilator Sputum Culture - Final Yeast Like Organism 05/25/20 09:40 Blood - Peripheral Venous Blood Culture - Final Lactose Fermenting Neg Bacilli 05/25/20 09:35 Blood - Peripheral Venous Blood Culture - Final Citrobacter Koseri 05/25/20 09:40 Urine - Urine - Catheterized Urine Culture - Final NO GROWTH OBTAINED Problem List - Problems (1) CVA (cerebral vascular accident) Code(s): I63.9 - CEREBRAL INFARCTION, UNSPECIFIED (2) Diabetic foot ulcer Code(s): E11.621 - TYPE 2 DIABETES MELLITUS WITH FOOT ULCER; L97.509 - NON- PRESSURE CHRONIC ULCER OTH PRT UNSP FOOT W UNSP SEVERITY Qualifiers: Diabetes mellitus type: type 1 Laterality: right (3) HTN (hypertension) Code(s): I10 - ESSENTIAL (PRIMARY) HYPERTENSION (4) Sepsis Code(s): A41.9 - SEPSIS, UNSPECIFIED ORGANISM (5) Anemia Code(s): D64.9 - ANEMIA, UNSPECIFIED (6) Bacteremia Code(s): R78.81 - BACTEREMIA (7) CHF (congestive heart failure) Code(s): I50.9 - HEART FAILURE, UNSPECIFIED Qualifiers: Heart failure type: unspecified Heart failure chronicity: unspecified Q ualified Code(s): I50.9 - Heart failure, unspecified Assessment/Plan Multilobar PNA Possible Aspiration Gram neg bacteremia - resolved Acute CVA DM diabetic foot ulcer -- Pt is s/p course of broad spectrum antibiotics, last blood cultures negative -- more alert, verbally responsive, vital stable/afebrile -- continue monitor -- Neurology following
[2020-06-06] MEDS: ATORVASTATIN CA 20 MG TABLET (FP) PO SCH (22:25)
[2020-06-07] MEDS: INSULIN SLIDING SCALE (NOVOLOG) 1 VIAL SQ SCH ×3 (06:37→22:47)
[2020-06-07 07:39] LABS: BASO % 0.8 % (0-2.0); EOS % 5.4 % (0-4.5); HEMATOCRIT 28.9 % (32.4-45.2); HEMOGLOBIN 9.3 GM/dL (10.7-15.3); LYMPH % 8.5 % (8-40); MCH 27.8 pg (25.7-33.7); MCHC 32.3 g/dl (32.0-36.0); MEAN PLT VOLUME 9.8 fl (7.5-11.1); MONO % 8.1 % (3.8-10.2); NEUT % 77.2 % (42.8-82.8); PLATELET COUNT 254 K/MM3 (134-434); RBC 3.36 M/mm3 (3.60-5.2); RDW 19.4 % (11.6-15.6)
[2020-06-07 08:06] LABS: BLOOD UREA NITROGEN 26.2 mg/dL (7-18); CALCIUM 8.8 mg/dL (8.5-10.1); CREATININE 1.5 mg/dL (0.55-1.3); POTASSIUM 3.7 mmol/L (3.5-5.1)
--- NOTE | 2020-06-07 08:09 | PN ---
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, Physician - Current Medication List Current Medications: Active Medications Acetaminophen (Tylenol Oral Solution -) 650 mg PO Q4H PRN PRN Reason: PAIN 1-3 Amlodipine Besylate (Norvasc -) 10 mg PO DAILY [facility] Last Admin: 06/06/20 09:44 Dose: 10 mg Documented by: Aspirin (Ecotrin -) 81 mg PO DAILY [facility] Last Admin: 06/06/20 09:44 Dose: 81 mg Documented by: Atorvastatin Calcium (Lipitor -) 20 mg PO HS [facility] Last Admin: 06/06/20 22:25 Dose: 20 mg Documented by: Collagenase (Santyl -) 1 applic TP DAILY [facility]; Protocol Last Admin: 06/06/20 09:45 Dose: 1 applic Documented by: Famotidine (Pepcid -) 20 mg PO DAILY [facility] Last Admin: 06/06/20 09:45 Dose: 20 mg Documented by: Ferrous Sulfate (Feosol -) 325 mg PO BID [facility] Last Admin: 06/06/20 22:25 Dose: 325 mg Documented by: Heparin Sodium (Porcine) (Heparin -) 5,000 unit SQ BID [facility] Last Admin: 06/06/20 22:25 Dose: 5,000 unit Documented by: Sodium Chloride (1/2 Normal Saline) 1,000 mls @ 75 mls/hr IV ASDIR [facility] Last Admin: 06/06/20 18:29 Dose: 75 mls/hr Documented by: Insulin Aspart (Novolog Vial Sliding Scale -) 1 vial SQ TID [facility]; Protocol Last Admin: 06/07/20 06:37 Dose: Not Given Documented by: Losartan Potassium (Cozaar -) 100 mg PO DAILY [facility] Last Admin: 06/06/20 09:45 Dose: 100 mg Documented by: Metoprolol Tartrate (Lopressor -) 25 mg PO BID [facility] Last Admin: 06/06/20 22:25 Dose: 25 mg Documented by: Tamsulosin HCl (Flomax -) 0.4 mg PO DAILY@0830 [facility] Last Admin: 06/06/20 09:44 Dose: 0.4 mg Documented by: - Objective Vital Signs: Vital Signs Temperature 97.8 F 06/07/20 06:00 Pulse Rate 74 06/07/20 06:00 Respiratory Rate 18 06/07/20 06:00 Blood Pressure 146/77 06/07/20 06:00 O2 Sat by Pulse Oximetry (%) 95 06/07/20 06:00 Cardiovascular: Yes: S1, S2 Respiratory: Yes: Regular, CTA Bilaterally Gastrointestinal: Yes: Normal Bowel Sounds, Soft Neurological: Yes: Alert, Confusion, Weakness Labs: CBC, BMP 06/07/20 06:00 INR, PTT INR Cancelled 06/03/20 21:05 Fibrinogen 298.0 mg/dL (238-498) 05/26/20 05:16 Assessment/Plan - Problems (1) Sepsis Assessment/Plan: -resolved -ID consult -IV meropenem--OFF ABX -Repeat BC negative -Afebrile -Cultures: Microbiology 05/29/20 06:10 Blood - Peripheral Venous Blood Culture - Final NO GROWTH AFTER 5 DAYS INCUBATION 05/29/20 06:10 Blood - Peripheral Venous Blood Culture - Final NO GROWTH AFTER 5 DAYS INCUBATION 05/25/20 18:30 Sputum - Endotrachea Suction/Ventilator Gram Stain - Final 05/25/20 18:30 Sputum - Endotrachea Suction/Ventilator Sputum Culture - Final Yeast Like Organism 05/25/20 09:40 Blood - Peripheral Venous Blood Culture - Final Lactose Fermenting Neg Bacilli 05/25/20 09:35 Blood - Peripheral Venous Blood Culture - Final Citrobacter Koseri 05/25/20 09:40 Urine - Urine - Catheterized Urine Culture - Final NO GROWTH OBTAINED Problems reviewed: Yes Code(s): A41.9 - SEPSIS, UNSPECIFIED ORGANISM (2) Acute on chronic renal failure Assessment/Plan: -Nephrology consult -2/2 to acute infection -Cr at baseline Problems reviewed: Yes Code(s): N17.9 - ACUTE KIDNEY FAILURE, UNSPECIFIED; N18.9 - CHRONIC KIDNEY DISEASE, UNSPECIFIED Qualifiers: Acute renal failure type: unspecified Chronic kidney disease stage: unspecified stage Qualified Code(s): N17.9 - Acute kidney failure, unspecified; N18.9 - Chronic kidney disease, unspecified (3) Amyloid disease Problems reviewed: Yes Code(s): E85.9 - AMYLOIDOSIS, UNSPECIFIED (4) Anemia Assessment/Plan: -KARIS in the past -Feosol BID -Monitor H/H -no overt bleeding -Check thyroid profile Problems reviewed: Yes Code(s): D64.9 - ANEMIA, UNSPECIFIED (5) Pleural effusion Problems reviewed: Yes Code(s): J90 - PLEURAL EFFUSION, NOT ELSEWHERE CLASSIFIED (6) Right lower lobe pneumonia Assessment/Plan: -as above -O2 to keep SpO2>90% -Pulmonary consult -COVID 19 PCR negative -OFF IV abx -ID on board -Afebrile Problems reviewed: Yes Code(s): J18.9 - PNEUMONIA, UNSPECIFIED ORGANISM Qualifiers: Pneumonia type: due to unspecified organism Qualified Code(s): J18.9 - P neumonia, unspecified organism (7) Troponin I above reference range Assessment/Plan: -2/2 to sepsis and demand ischemia -Cardiology consult Problems reviewed: Yes Code(s): R79.89 - OTHER SPECIFIED ABNORMAL FINDINGS OF BLOOD CHEMISTRY (8) HTN (hypertension) Assessment/Plan: -Losartan to 100 mg daily -Continue lopressor 25 mg po bid -Continue amlodipine 10 mg po daily -Titrate meds to meet goal <140/90 mm Hg Problems reviewed: Yes Code(s): I10 - ESSENTIAL (PRIMARY) HYPERTENSION (9) CHF (congestive heart failure) Assessment/Plan: -Continue BB + ARB+ CCB Problems reviewed: Yes Code(s): I50.9 - HEART FAILURE, UNSPECIFIED Qualifiers: Heart failure type: unspecified Heart failure chronicity: unspecified Qualified Code(s): I50.9 - Heart failure, unspecified (10) Elevated liver enzymes Assessment/Plan: -likely 2/2 to congestive hepatopathy vs suspected amyloidosis -Trending down -Avoid hepatotoxic drugs Problems reviewed: Yes Code(s): R74.8 - ABNORMAL LEVELS OF OTHER SERUM ENZYMES (11) CVA (cerebral vascular accident) Assessment/Plan: -ASA -Statin -Neurology consult noted ctapending due to renal function Problems reviewed: Yes Code(s): I63.9 - CEREBRAL INFARCTION, UNSPECIFIED
--- NOTE | 2020-06-07 08:39 | PN ---
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 (short form) - Note 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: Neurology - Admission Chief Complaint: Facial droop, RUE weakness History of Present Illness: 70 year old female with a significant PMHx of Uncontrolled DM, Diabetic foot ulcer on R. foot, Chronic osteomyelitis of right foot, Diabetic neuropathy, Left leg below knee amputation, OA, Iron deficiency anemia, HLD, HTN, Charcot's joint, ESBL resistance and CHF who presents to the ED from [facility] for evaluation of hypoxia and AMS. The patient was previously discharged on 05/23 after having been treated for G(-) Bacteremia. Patient has been getting medical/infectious management. I was contacted 06/02 but Resident indicating that patient had right facial droop along with right upper extremity weakness and confusion. Patient symptoms improved and TPA not given. Advised noncontrast head CT which was without acute changes as well as CTA of the head to confirm no large vessel occlusion and was also negative. Advised to give aspirin 325 mg on 06/02 and start 81 mg daily as of 06/03. Recommended stroke work up including MRI brain which was completed and showed area of bilateral infarcts, suspicious for embolic phenomenon. carotid Dopplers completed and demonstrated no evidence of high-grade stenosis on the left but right side could not be visualized clearly. Overnight on 06/04/20 (Sunday into Sunday) contacted by resident due to patient having altered mental status. Explained that patient with underlying sepsis and did not have focal deficits and seem more generalized delirium. Repeat noncontrast head CT was recommended and did not show any acute changes. Somnolent and arousable but minimally verbal, appears fatigued. getting continued mgmt for toxic metabolic encephalopathy and infection. More awake today, following simple commands. Not fully oriented yet but improving. Active Medications Acetaminophen (Tylenol Oral Solution -) 650 mg PO Q4H PRN PRN Reason: PAIN 1-3 Amlodipine Besylate (Norvasc -) 10 mg PO DAILY [facility] Last Admin: 06/06/20 09:44 Dose: 10 mg Documented by: Aspirin (Ecotrin -) 81 mg PO DAILY [facility] Last Admin: 06/06/20 09:44 Dose: 81 mg Documented by: Atorvastatin Calcium (Lipitor -) 20 mg PO HS [facility] Last Admin: 06/06/20 22:25 Dose: 20 mg Documented by: Collagenase (Santyl -) 1 applic TP DAILY [facility]; Protocol Last Admin: 06/06/20 09:45 Dose: 1 applic Documented by: Famotidine (Pepcid -) 20 mg PO DAILY [facility] Last Admin: 06/06/20 09:45 Dose: 20 mg Documented by: Ferrous Sulfate (Feosol -) 325 mg PO BID [facility] Last Admin: 06/06/20 22:25 Dose: 325 mg Documented by: Heparin Sodium (Porcine) (Heparin -) 5,000 unit SQ BID [facility] Last Admin: 06/06/20 22:25 Dose: 5,000 unit Documented by: Sodium Chloride (1/2 Normal Saline) 1,000 mls @ 75 mls/hr IV ASDIR [facility] Last Admin: 06/06/20 18:29 Dose: 75 mls/hr Documented by: Insulin Aspart (Novolog Vial Sliding Scale -) 1 vial SQ TID [facility]; Protocol Last Admin: 06/07/20 06:37 Dose: Not Given Documented by: Losartan Potassium (Cozaar -) 100 mg PO DAILY [facility] Last Admin: 06/06/20 09:45 Dose: 100 mg Documented by: Metoprolol Tartrate (Lopressor -) 25 mg PO BID [facility] Last Admin: 06/06/20 22:25 Dose: 25 mg Documented by: Tamsulosin HCl (Flomax -) 0.4 mg PO DAILY@0830 [facility] Last Admin: 06/06/20 09:44 Dose: 0.4 mg Documented by: Physical Examination Vital Signs Period Temp Pulse Resp BP Sys/Dobson Pulse Ox Last 24 Hr 97.8 F-98.7 F 74-86 18-20 143-156/77-85 95-98 Constitutional: Yes: Well Nourished, No Distress, Calm Cardiovascular: Yes: Regular Rate and Rhythm Respiratory: Yes: Mechanically Ventilated, Rhonchi (diffuse) Gastrointestinal: Yes: Soft, Hypoactive Bowel Sounds Renal/: Yes: Lynn Present Edema: No Peripheral Pulses WNL: Yes Neurological: AWake, right facial weakness minimal, moves extremities grossly but not participating in confrontation testing, sensory intact, gait deferred Labs: CBCD WBC 8.0 K/mm3 (4.0-10.0) 06/07/20 06:00 RBC 3.36 M/mm3 (3.60-5.2) L 06/07/20 06:00 Hgb 9.3 GM/dL (10.7-15.3) L 06/07/20 06:00 Hct 28.9 % (32.4-45.2) L 06/07/20 06:00 MCV 86.0 fl (80-96) 06/07/20 06:00 MCHC 32.3 g/dl (32.0-36.0) 06/07/20 06:00 RDW 19.4 % (11.6-15.6) H 06/07/20 06:00 Plt Count 254 K/MM3 (134-434) 06/07/20 06:00 MPV 9.8 fl (7.5-11.1) 06/07/20 06:00 CMP Sodium 143 mmol/L (136-145) 06/07/20 06:00 Potassium 3.7 mmol/L (3.5-5.1) 06/07/20 06:00 Chloride 108 mmol/L (98-107) H 06/07/20 06:00 Carbon Dioxide 32 mmol/L (21-32) 06/07/20 06:00 Anion Gap 4 MMOL/L (8-16) L 06/07/20 06:00 BUN 26.2 mg/dL (7-18) H 06/07/20 06:00 Creatinine 1.5 mg/dL (0.55-1.3) H 06/07/20 06:00 Random Glucose 152 mg/dL (74-106) H 06/07/20 06:00 Calcium 8.8 mg/dL (8.5-10.1) 06/07/20 06:00 Total Bilirubin 0.8 mg/dL (0.2-1) 06/03/20 21:05 AST 25 U/L (15-37) 06/03/20 21:05 ALT 149 U/L (13-61) H 06/03/20 21:05 Alkaline Phosphatase 198 U/L (45-117) H 06/03/20 21:05 Total Protein 7.7 g/dl (6.4-8.2) 06/03/20 21:05 Albumin 2.1 g/dl (3.4-5.0) L 06/03/20 21:05 CARDIAC ENZYMES Creatine Kinase 28 U/L (26-192) 06/03/20 12:40 Troponin I 0.09 ng/ml (0.00-0.05) H 06/03/20 12:40 Plan: 70 year old female with a significant PMHx of Uncontrolled DM, Diabetic foot ulcer on R. foot, Chronic osteomyelitis of right foot, Diabetic neuropathy, Left leg below knee amputation, OA, Iron deficiency anemia, HLD, HTN, Charcot's joint, ESBL resistance and CHF who presents to the ED from [facility] for evaluation of hypoxia and AMS. The patient was previously discharged on 05/23 after having been treated for G(-) Bacteremia. Patient has been getting medical/infectious management. I was contacted 06/02 but Resident indicating that patient had right facial droop along with right upper extremity weakness and confusion. Patient symptoms improved and TPA not given. Advised noncontrast head CT which was without acute changes as well as CTA of the head to confirm no large vessel occlusion and was also negative. Advised to give aspirin 325 mg on 06/02 and start 81 mg daily as of 06/03. Recommended stroke work up including MRI brain which was completed overnight and showed area of bilateral infarcts, suspicious for embolic phenomenon. carotid Dopplers completed and demonstrated no evidence of high-grade stenosis on the left but right side could not be visualized clearly. Overnight on 06/04/20 (Sunday into Sunday) contacted by resident due to patient having altered mental status. Explained that patient with underlying sepsis and did not have focal deficits and seem more generalized delirium. Repeat noncontrast head CT was recommended and did not show any acute changes. getting continued mgmt for toxic metabolic encephalopathy and infectio n. More awake today, following simple commands. Not fully oriented yet but improving. Conitnue ID follow up and mgmt. Monitor bp, <150/90 Recommended. Physical therapy as tolerated. frequent reorientation, maintain hydration. Monitor labs, continue close follow-up
[2020-06-07] MEDS: FERROUS SO4 325 MG TABLET (FP) PO SCH ×2 (10:30→22:46)
[2020-06-07] MEDS: amLODIPine BESYLATE 10 MG TABLET (FP) PO SCH (10:30)
[2020-06-07] MEDS: ASPIRIN COATED 81 MG TABLET.EC PO SCH (10:30)
[2020-06-07] MEDS: FAMOTIDINE 20 MG TABLET PO SCH (10:31)
[2020-06-07] MEDS: LOSARTAN POTASSIUM 50 MG TABLET (FP) PO SCH (10:31)
[2020-06-07] MEDS: HEPARIN NA (PORCINE) 5,000 UNITS/ML 1ML VIAL SQ SCH ×2 (10:31→22:47)
[2020-06-07] MEDS: METOPROLOL TARTRATE 25 MG TABLET (FP) PO SCH ×2 (10:31→22:47)
[2020-06-07] MEDS: COLLAGENASE CLOSTRIDIUM HIST. 30 GRAMS TUBE TP SCH (10:31)
--- NOTE | 2020-06-07 10:51 | PN ---
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, Physician History of Present Illness: PULMONARY MORE ALERT,COMFORTABLE,-SOB - Current Medication List Current Medications: Active Medications Acetaminophen (Tylenol Oral Solution -) 650 mg PO Q4H PRN PRN Reason: PAIN 1-3 Amlodipine Besylate (Norvasc -) 10 mg PO DAILY [facility] Last Admin: 06/07/20 10:30 Dose: 10 mg Documented by: Aspirin (Ecotrin -) 81 mg PO DAILY [facility] Last Admin: 06/07/20 10:30 Dose: 81 mg Documented by: Atorvastatin Calcium (Lipitor -) 20 mg PO HS [facility] Last Admin: 06/06/20 22:25 Dose: 20 mg Documented by: Collagenase (Santyl -) 1 applic TP DAILY [facility]; Protocol Last Admin: 06/07/20 10:31 Dose: 1 applic Documented by: Famotidine (Pepcid -) 20 mg PO DAILY [facility] Last Admin: 06/07/20 10:31 Dose: 20 mg Documented by: Ferrous Sulfate (Feosol -) 325 mg PO BID [facility] Last Admin: 06/07/20 10:30 Dose: 325 mg Documented by: Heparin Sodium (Porcine) (Heparin -) 5,000 unit SQ BID [facility] Last Admin: 06/07/20 10:31 Dose: 5,000 unit Documented by: Sodium Chloride (1/2 Normal Saline) 1,000 mls @ 75 mls/hr IV ASDIR [facility] Last Admin: 06/06/20 18:29 Dose: 75 mls/hr Documented by: Insulin Aspart (Novolog Vial Sliding Scale -) 1 vial SQ TID [facility]; Protocol Last Admin: 06/07/20 06:37 Dose: Not Given Documented by: Losartan Potassium (Cozaar -) 100 mg PO DAILY [facility] Last Admin: 06/07/20 10:31 Dose: 100 mg Documented by: Metoprolol Tartrate (Lopressor -) 25 mg PO BID [facility] Last Admin: 06/07/20 10:31 Dose: 25 mg Documented by: - Objective Vital Signs: Vital Signs Temperature 97.8 F 06/07/20 06:00 Pulse Rate 74 06/07/20 06:00 Respiratory Rate 18 06/07/20 06:00 Blood Pressure 146/77 06/07/20 06:00 O2 Sat by Pulse Oximetry (%) 95 06/07/20 06:00 Constitutional: Yes: Well Nourished, Calm Eyes: Yes: WNL HENT: Yes: WNL Neck: Yes: WNL Cardiovascular: Yes: Regular Rate and Rhythm, S1, S2 Respiratory: Yes: Diminished Gastrointestinal: Yes: Normal Bowel Sounds, Soft Extremities: Yes: Amputation (L BKA) Edema: No Labs: CBC, BMP 06/07/20 06:00 06/07/20 06:00 INR, PTT INR Cancelled 06/03/20 21:05 Fibrinogen 298.0 mg/dL (238-498) 05/26/20 05:16 Assessment/Plan ASSESSMENT AND PLAN: Acute Hypoxic Respiratory Failure improved Pneumonia UTI LV Diastolic Dysfunction Suspected Amyloidosis +Troponins likely Demand Ischemia HTN DM Hyperlipidemia Anemia Multiple small acute cva's - antibiotics completed - O2 to keep SpO2 >90% - aspiration precautions - PO as tolerated - DVT prophylaxis DR LEAL
--- NOTE | 2020-06-07 11:28 | PN ---
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 Accepted 75% this am with good tolerance occasional verbalizations.
--- NOTE | 2020-06-07 12:15 | PN ---
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, Physician - Current Medication List Current Medications: Active Medications Acetaminophen (Tylenol Oral Solution -) 650 mg PO Q4H PRN PRN Reason: PAIN 1-3 Amlodipine Besylate (Norvasc -) 10 mg PO DAILY [facility] Last Admin: 06/07/20 10:30 Dose: 10 mg Documented by: Aspirin (Ecotrin -) 81 mg PO DAILY [facility] Last Admin: 06/07/20 10:30 Dose: 81 mg Documented by: Atorvastatin Calcium (Lipitor -) 20 mg PO HS [facility] Last Admin: 06/06/20 22:25 Dose: 20 mg Documented by: Collagenase (Santyl -) 1 applic TP DAILY [facility]; Protocol Last Admin: 06/07/20 10:31 Dose: 1 applic Documented by: Famotidine (Pepcid -) 20 mg PO DAILY [facility] Last Admin: 06/07/20 10:31 Dose: 20 mg Documented by: Ferrous Sulfate (Feosol -) 325 mg PO BID [facility] Last Admin: 06/07/20 10:30 Dose: 325 mg Documented by: Heparin Sodium (Porcine) (Heparin -) 5,000 unit SQ BID [facility] Last Admin: 06/07/20 10:31 Dose: 5,000 unit Documented by: Sodium Chloride (1/2 Normal Saline) 1,000 mls @ 75 mls/hr IV ASDIR [facility] Last Admin: 06/06/20 18:29 Dose: 75 mls/hr Documented by: Insulin Aspart (Novolog Vial Sliding Scale -) 1 vial SQ TID [facility]; Protocol Last Admin: 06/07/20 06:37 Dose: Not Given Documented by: Losartan Potassium (Cozaar -) 100 mg PO DAILY [facility] Last Admin: 06/07/20 10:31 Dose: 100 mg Documented by: Metoprolol Tartrate (Lopressor -) 25 mg PO BID [facility] Last Admin: 06/07/20 10:31 Dose: 25 mg Documented by: - Objective Vital Signs: Vital Signs Temperature 98.2 F 06/07/20 10:00 Pulse Rate 82 06/07/20 10:00 Respiratory Rate 22 H 06/07/20 10:00 Blood Pressure 146/83 06/07/20 10:00 O2 Sat by Pulse Oximetry (%) 96 06/07/20 10:00 Labs: CBC, BMP 06/07/20 06:00 06/07/20 06:00 INR, PTT INR Cancelled 06/03/20 21:05 Fibrinogen 298.0 mg/dL (238-498) 05/26/20 05:16
--- NOTE | 2020-06-07 13:03 | PN ---
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 foot, Chronic osteomyelitis of right foot, Diabetic neuropathy, Left leg below knee amputation, OA, Iron deficiency anemia, HLD, HTN, Charcot's joint, ESBL re sistance and who presents to the ED from [facility] for evaluation of hypoxia and AMS. The patient was previously discharged on 05/23 after having been treated for G(-) Bacteremia. History Source: Patient - Current Medication List Current Medications: Active Medications Acetaminophen (Tylenol Oral Solution -) 650 mg PO Q4H PRN PRN Reason: PAIN 1-3 Amlodipine Besylate (Norvasc -) 10 mg PO DAILY [facility] Last Admin: 06/07/20 10:30 Dose: 10 mg Documented by: Aspirin (Ecotrin -) 81 mg PO DAILY [facility] Last Admin: 06/07/20 10:30 Dose: 81 mg Documented by: Atorvastatin Calcium (Lipitor -) 20 mg PO HS [facility] Last Admin: 06/06/20 22:25 Dose: 20 mg Documented by: Collagenase (Santyl -) 1 applic TP DAILY [facility]; Protocol Last Admin: 06/07/20 10:31 Dose: 1 applic Documented by: Famotidine (Pepcid -) 20 mg PO DAILY [facility] Last Admin: 06/07/20 10:31 Dose: 20 mg Documented by: Ferrous Sulfate (Feosol -) 325 mg PO BID [facility] Last Admin: 06/07/20 10:30 Dose: 325 mg Documented by: Heparin Sodium (Porcine) (Heparin -) 5,000 unit SQ BID [facility] Last Admin: 06/07/20 10:31 Dose: 5,000 unit Documented by: Sodium Chloride (1/2 Normal Saline) 1,000 mls @ 75 mls/hr IV ASDIR [facility] Last Admin: 06/06/20 18:29 Dose: 75 mls/hr Documented by: Insulin Aspart (Novolog Vial Sliding Scale -) 1 vial SQ TID [facility]; Protocol Last Admin: 06/07/20 06:37 Dose: Not Given Documented by: Losartan Potassium (Cozaar -) 100 mg PO DAILY [facility] Last Admin: 06/07/20 10:31 Dose: 100 mg Documented by: Metoprolol Tartrate (Lopressor -) 25 mg PO BID [facility] Last Admin: 06/07/20 10:31 Dose: 25 mg Documented by: - Objective Vital Signs: Vital Signs Temperature 98.2 F 06/07/20 10:00 Pulse Rate 82 06/07/20 10:00 Respiratory Rate 22 H 06/07/20 10:00 Blood Pressure 146/83 06/07/20 10:00 O2 Sat by Pulse Oximetry (%) 96 06/07/20 10:00 Eyes: Yes: WNL, Conjunctiva Clear, EOM Intact HENT: Yes: WNL, Atraumatic, Normocephalic Neck: Yes: WNL, Supple, Trachea Midline Cardiovascular: Yes: WNL, Regular Rate and Rhythm Respiratory: Yes: WNL, Regular, CTA Bilaterally Gastrointestinal: Yes: WNL, Normal Bowel Sounds Genitourinary: Yes: WNL Musculoskeletal: Yes: WNL Extremities: Yes: Amputation Edema: No Integumentary: Yes: WNL Neurological: Yes: WNL, Alert, Oriented ...Motor Strength: WNL Psychiatric: Yes: WNL Labs: CBC, BMP 06/07/20 06:00 06/07/20 06:00 INR, PTT INR Cancelled 06/03/20 21:05 Fibrinogen 298.0 mg/dL (238-498) 05/26/20 05:16 Problem List - Problems (1) Diabetic foot ulcer Code(s): E11.621 - TYPE 2 DIABETES MELLITUS WITH FOOT ULCER; L97.509 - NON- PRESSURE CHRONIC ULCER OTH PRT UNSP FOOT W UNSP SEVERITY Qualifiers: Diabetes mellitus type: type 1 Laterality: right (2) Sepsis Code(s): A41.9 - SEPSIS, UNSPECIFIED ORGANISM (3) Septic shock Code(s): A41.9 - SEPSIS, UNSPECIFIED ORGANISM; R65.21 - SEVERE SEPSIS WITH SEPTIC SHOCK (4) Acute on chronic renal failure Code(s): N17.9 - ACUTE KIDNEY FAILURE, UNSPECIFIED; N18.9 - CHRONIC KIDNEY DISEASE, UNSPECIFIED Qualifiers: Acute renal failure type: unspecified Chronic kidney disease stage: unspecified stage Qualified Code(s): N17.9 - Acute kidney failure, unspecified; N18.9 - Chronic kidney disease, unspecified (5) Amyloid disease Code(s): E85.9 - AMYLOIDOSIS, UNSPECIFIED (6) Anemia Code(s): D64.9 - ANEMIA, UNSPECIFIED (7) Bacteremia Code(s): R78.81 - BACTEREMIA (8) CHF (congestive heart failure) Code(s): I50.9 - HEART FAILURE, UNSPECIFIED Qualifiers: Heart failure type: unspecified Heart failure chronicity: unspecified Qualified Code(s): I50.9 - Heart failure, unspecified (9) Elevated liver enzymes Code(s): R74.8 - ABNORMAL LEVELS OF OTHER SERUM ENZYMES (10) Pleural effusion Code(s): J90 - PLEURAL EFFUSION, NOT ELSEWHERE CLASSIFIED (11) Right lower lobe pneumonia Code(s): J18.9 - PNEUMONIA, UNSPECIFIED ORGANISM Qualifiers: Pneumonia type: due to unspecified organism Qualified Code(s): J18.9 - Pneumonia, unspecified organism (12) Troponin I above reference range Code(s): R79.89 - OTHER SPECIFIED ABNORMAL FINDINGS OF BLOOD CHEMISTRY Assessment/Plan 70 yr old black woman with PMHx low-normal systolic, diastolic CHF, ?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 foot, Chronic osteomyelitis of right foot, Diabetic neuropathy, Left leg below knee amputation, renal dysfunction, OA, Iron deficiency anemia, HLD, HTN, ESBL resistance, who presents to the ED from [facility] for evaluation of hypoxia and AMS that required intubation after recent admission for CHF. Suspected multilobar pnemonia and sepsis. Lethargy. MRI brain: multiple small bilateral cortical infarcts Plan: HTN: losartan and amlodipine are at maximum dosing; may increase metoprolol dose. On furosemide prn; consider thiazide diuretic; Hydralazine may be used if BP refractory. (BP parameters per neruologist noted). 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 Amyloidosis w/u at [facility] pending. Neuro w/u noted and appreciated: on ASA; BP parameters.
[2020-06-07] MEDS: SODIUM CHLORIDE 0.45% 1,000 ML IV SCH (17:31)
[2020-06-07] MEDS: ATORVASTATIN CA 20 MG TABLET (FP) PO SCH (22:47)
[2020-06-08] MEDS: INSULIN SLIDING SCALE (NOVOLOG) 1 VIAL SQ SCH ×3 (06:40→23:35)
--- NOTE | 2020-06-08 07:45 | PN ---
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, Physician History of Present Illness: PULMONARY AWAKE,ALERT,COMFORTABLE,-SOB,-CONGESTION - Current Medication List Current Medications: Active Medications Acetaminophen (Tylenol Oral Solution -) 650 mg PO Q4H PRN PRN Reason: PAIN 1-3 Amlodipine Besylate (Norvasc -) 10 mg PO DAILY [facility] Last Admin: 06/07/20 10:30 Dose: 10 mg Documented by: Aspirin (Ecotrin -) 81 mg PO DAILY [facility] Last Admin: 06/07/20 10:30 Dose: 81 mg Documented by: Atorvastatin Calcium (Lipitor -) 20 mg PO HS [facility] Last Admin: 06/07/20 22:47 Dose: 20 mg Documented by: Collagenase (Santyl -) 1 applic TP DAILY [facility]; Protocol Last Admin: 06/07/20 10:31 Dose: 1 applic Documented by: Famotidine (Pepcid -) 20 mg PO DAILY [facility] Last Admin: 06/07/20 10:31 Dose: 20 mg Documented by: Ferrous Sulfate (Feosol -) 325 mg PO BID [facility] Last Admin: 06/07/20 22:46 Dose: 325 mg Documented by: Heparin Sodium (Porcine) (Heparin -) 5,000 unit SQ BID [facility] Last Admin: 06/07/20 22:47 Dose: 5,000 unit Documented by: Sodium Chloride (1/2 Normal Saline) 1,000 mls @ 75 mls/hr IV ASDIR [facility] Last Admin: 06/07/20 17:31 Dose: 75 mls/hr Documented by: Insulin Aspart (Novolog Vial Sliding Scale -) 1 vial SQ TID [facility]; Protocol Last Admin: 06/08/20 06:40 Dose: 2 units Documented by: Losartan Potassium (Cozaar -) 100 mg PO DAILY [facility] Last Admin: 06/07/20 10:31 Dose: 100 mg Documented by: Metoprolol Tartrate (Lopressor -) 25 mg PO BID [facility] Last Admin: 06/07/20 22:47 Dose: 25 mg Documented by: - Objective Vital Signs: Vital Signs Temperature 98.1 F 06/08/20 01:28 Pulse Rate 76 06/08/20 01:28 Respiratory Rate 18 06/08/20 01:28 Blood Pressure 135/87 06/08/20 01:28 O2 Sat by Pulse Oximetry (%) 99 06/08/20 04:28 Constitutional: Yes: Well Nourished, Calm Eyes: Yes: WNL HENT: Yes: WNL Neck: Yes: WNL Cardiovascular: Yes: Regular Rate and Rhythm, S1, S2 Respiratory: Yes: Rhonchi (FEW RHONCHI) Gastrointestinal: Yes: Normal Bowel Sounds, Soft Extremities: Yes: Amputation (LEFT BKA) Edema: No Labs: CBC, BMP Assessment/Plan ASSESSMENT AND PLAN: Acute Hypoxic Respiratory Failure improved Pneumonia UTI LV Diastolic Dysfunction Suspected Amyloidosis +Troponins likely Demand Ischemia HTN DM Hyperlipidemia Anemia Multiple small acute cva's - antibiotics completed - O2 to keep SpO2 >90% - aspiration precautions - PO as tolerated - DVT prophylaxis DR LEAL
--- NOTE | 2020-06-08 08:25 | PN ---
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, Physician History of Present Illness: MORE AWAKE - Current Medication List Current Medications: Active Medications Acetaminophen (Tylenol Oral Solution -) 650 mg PO Q4H PRN PRN Reason: PAIN 1-3 Amlodipine Besylate (Norvasc -) 10 mg PO DAILY [facility] Last Admin: 06/07/20 10:30 Dose: 10 mg Documented by: Aspirin (Ecotrin -) 81 mg PO DAILY [facility] Last Admin: 06/07/20 10:30 Dose: 81 mg Documented by: Atorvastatin Calcium (Lipitor -) 20 mg PO HS [facility] Last Admin: 06/07/20 22:47 Dose: 20 mg Documented by: Collagenase (Santyl -) 1 applic TP DAILY [facility]; Protocol Last Admin: 06/07/20 10:31 Dose: 1 applic Documented by: Famotidine (Pepcid -) 20 mg PO DAILY [facility] Last Admin: 06/07/20 10:31 Dose: 20 mg Documented by: Ferrous Sulfate (Feosol -) 325 mg PO BID [facility] Last Admin: 06/07/20 22:46 Dose: 325 mg Documented by: Heparin Sodium (Porcine) (Heparin -) 5,000 unit SQ BID [facility] Last Admin: 06/07/20 22:47 Dose: 5,000 unit Documented by: Sodium Chloride (1/2 Normal Saline) 1,000 mls @ 75 mls/hr IV ASDIR [facility] Last Admin: 06/07/20 17:31 Dose: 75 mls/hr Documented by: Insulin Aspart (Novolog Vial Sliding Scale -) 1 vial SQ TID [facility]; Protocol Last Admin: 06/08/20 06:40 Dose: 2 units Documented by: Losartan Potassium (Cozaar -) 100 mg PO DAILY [facility] Last Admin: 06/07/20 10:31 Dose: 100 mg Documented by: Metoprolol Tartrate (Lopressor -) 25 mg PO BID [facility] Last Admin: 06/07/20 22:47 Dose: 25 mg Documented by: - Objective Vital Signs: Vital Signs Temperature 98.1 F 06/08/20 01:28 Pulse Rate 76 06/08/20 01:28 Respiratory Rate 18 06/08/20 01:28 Blood Pressure 135/87 06/08/20 01:28 O2 Sat by Pulse Oximetry (%) 99 06/08/20 04:28 Cardiovascular: Yes: S1, S2 Respiratory: Yes: Regular, CTA Bilaterally Gastrointestinal: Yes: Normal Bowel Sounds, Soft Neurological: Yes: Alert, Weakness Labs: CBC, BMP 06/07/20 06:00 06/07/20 06:00 INR, PTT INR Cancelled 06/03/20 21:05 Fibrinogen 298.0 mg/dL (238-498) 05/26/20 05:16 Assessment/Plan - Problems (1) Sepsis Assessment/Plan: -resolved -ID consult -IV meropenem--OFF ABX -Repeat BC negative -Afebrile -Cultures: Microbiology 05/29/20 06:10 Blood - Peripheral Venous Blood Culture - Final NO GROWTH AFTER 5 DAYS INCUBATION 05/29/20 06:10 Blood - Peripheral Venous Blood Culture - Final NO GROWTH AFTER 5 DAYS INCUBATION 05/25/20 18:30 Sputum - Endotrachea Suction/Ventilator Gram Stain - Final 05/25/20 18:30 Sputum - Endotrachea Suction/Ventilator Sputum Culture - Final Yeast Like Organism 05/25/20 09:40 Blood - Peripheral Venous Blood Culture - Final Lactose Fermenting Neg Bacilli 05/25/20 09:35 Blood - Peripheral Venous Blood Culture - Final Citrobacter Koseri 05/25/20 09:40 Urine - Urine - Catheterized Urine Culture - Final NO GROWTH OBTAINED Problems reviewed: Yes Code(s): A41.9 - SEPSIS, UNSPECIFIED ORGANISM (2) Acute on chronic renal failure Assessment/Plan: -Nephrology consult -2/2 to acute infection -Cr at baseline Problems reviewed: Yes Code(s): N17.9 - ACUTE KIDNEY FAILURE, UNSPECIFIED; N18.9 - CHRONIC KIDNEY DISEASE, UNSPECIFIED Qualifiers: Acute renal failure type: unspecified Chronic kidney disease stage: unspecified stage Qualified Code(s): N17.9 - Acute kidney failure, unspecified; N18.9 - Chronic kidney disease, unspecified (3) Amyloid disease -PATIENT REFUSED WORK UP IN PAST Problems reviewed: Yes Code(s): E85.9 - AMYLOIDOSIS, UNSPECIFIED (4) Anemia Assessment/Plan: -KARIS in the past -Feosol BID -Monitor H/H -no overt bleeding -Check thyroid profile Problems reviewed: Yes Code(s): D64.9 - ANEMIA, UNSPECIFIED (5) Pleural effusion Problems reviewed: Yes Code(s): J90 - PLEURAL EFFUSION, NOT ELSEWHERE CLASSIFIED (6) Right lower lobe pneumonia Assessment/Plan: -as above -O2 to keep SpO2>90% -Pulmonary consult -COVID 19 PCR negative -OFF IV abx -ID on board -Afebrile Problems reviewed: Yes Code(s): J18.9 - PNEUMONIA, UNSPECIFIED ORGANISM Qualifiers: Pneumonia type: due to unspecified organism Qualified Code(s): J18.9 - Pneumonia, unspecified organism (7) Troponin I above reference range Assessment/Plan: -2/2 to sepsis and demand ischemia -Cardiology consult Problems reviewed: Yes Code(s): R79.89 - OTHER SPECIFIED ABNORMAL FINDINGS OF BLOOD CHEMISTRY (8) HTN (hypertension) Assessment/Plan: -Losartan to 100 mg daily -Continue lopressor 25 mg po bid -Continue amlodipine 10 mg po daily -Titrate meds to meet goal <140/90 mm Hg Problems reviewed: Yes Code(s): I10 - ESSENTIAL (PRIMARY) HYPERTENSION (9) CHF (congestive heart failure) Assessment/Plan: -Continue BB + ARB+ CCB Problems reviewed: Yes Code(s): I50.9 - HEART FAILURE, UNSPECIFIED Qualifiers: Heart failure type: unspecified Heart failure chronicity: unspecified Qualified Code(s): I50.9 - Heart failure, unspecified (10) Elevated liver enzymes Assessment/Plan: -likely 2/2 to congestive hepatopathy vs suspected amyloidosis -Trending down -Avoid hepatotoxic drugs Problems reviewed: Yes Code(s): R74.8 - ABNORMAL LEVELS OF OTHER SERUM ENZYMES (11) CVA (cerebral vascular accident) Assessment/Plan: -ASA -Statin -Neurology consult noted ctapending due to renal function Problems reviewed: Yes Code(s): I63.9 - CEREBRAL INFARCTION, UNSPECIFIED
[2020-06-08] MEDS: HEPARIN NA (PORCINE) 5,000 UNITS/ML 1ML VIAL SQ SCH ×2 (10:45→23:08)
[2020-06-08] MEDS: METOPROLOL TARTRATE 25 MG TABLET (FP) PO SCH ×2 (10:46→23:07)
[2020-06-08] MEDS: amLODIPine BESYLATE 10 MG TABLET (FP) PO SCH (10:46)
[2020-06-08] MEDS: FAMOTIDINE 20 MG TABLET PO SCH (10:46)
[2020-06-08] MEDS: FERROUS SO4 325 MG TABLET (FP) PO SCH ×2 (10:46→23:08)
[2020-06-08] MEDS: ASPIRIN COATED 81 MG TABLET.EC PO SCH (10:46)
[2020-06-08] MEDS: LOSARTAN POTASSIUM 50 MG TABLET (FP) PO SCH (10:46)
[2020-06-08] MEDS: SODIUM CHLORIDE 0.45% 1,000 ML IV SCH ×2 (10:49→16:10)
--- NOTE | 2020-06-08 11:14 | PN ---
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 Vocal quality euphonic. Tolerating puree/nectar
--- NOTE | 2020-06-08 13:37 | PN ---
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, Physician - Current Medication List Current Medications: Active Medications Acetaminophen (Tylenol Oral Solution -) 650 mg PO Q4H PRN PRN Reason: PAIN 1-3 Amlodipine Besylate (Norvasc -) 10 mg PO DAILY [facility] Last Admin: 06/08/20 10:46 Dose: 10 mg Documented by: Aspirin (Ecotrin -) 81 mg PO DAILY [facility] Last Admin: 06/08/20 10:46 Dose: 81 mg Documented by: Atorvastatin Calcium (Lipitor -) 20 mg PO HS [facility] Last Admin: 06/07/20 22:47 Dose: 20 mg Documented by: Collagenase (Santyl -) 1 applic TP DAILY [facility]; Protocol Last Admin: 06/07/20 10:31 Dose: 1 applic Documented by: Famotidine (Pepcid -) 20 mg PO DAILY [facility] Last Admin: 06/08/20 10:46 Dose: 20 mg Documented by: Ferrous Sulfate (Feosol -) 325 mg PO BID [facility] Last Admin: 06/08/20 10:46 Dose: 325 mg Documented by: Heparin Sodium (Porcine) (Heparin -) 5,000 unit SQ BID [facility] Last Admin: 06/08/20 10:45 Dose: 5,000 unit Documented by: Sodium Chloride (1/2 Normal Saline) 1,000 mls @ 75 mls/hr IV ASDIR [facility] Last Admin: 06/08/20 10:49 Dose: 75 mls/hr Documented by: Insulin Aspart (Novolog Vial Sliding Scale -) 1 vial SQ TID [facility]; Protocol Last Admin: 06/08/20 06:40 Dose: 2 units Documented by: Losartan Potassium (Cozaar -) 100 mg PO DAILY [facility] Last Admin: 06/08/20 10:46 Dose: 100 mg Documented by: Metoprolol Tartrate (Lopressor -) 25 mg PO BID [facility] Last Admin: 06/08/20 10:46 Dose: 25 mg Documented by: - Objective Vital Signs: Vital Signs Temperature 98.1 F 06/08/20 01:28 Pulse Rate 76 06/08/20 01:28 Respiratory Rate 18 06/08/20 01:28 Blood Pressure 135/87 06/08/20 01:28 O2 Sat by Pulse Oximetry (%) 99 06/08/20 04:28 Labs: CBC, BMP 06/07/20 06:00 06/07/20 06:00 INR, PTT INR Cancelled 06/03/20 21:05 Fibrinogen 298.0 mg/dL (238-498) 05/26/20 05:16
--- NOTE | 2020-06-08 15:09 | PN ---
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 foot, Chronic osteomyelitis of right foot, Diabetic neuropathy, Left leg below knee amputation, OA, Iron deficiency anemia, HLD, HTN, Charcot's joint, ESBL re sistance and who presents to the ED from [facility] for evaluation of hypoxia and AMS. The patient was previously discharged on 05/23 after having been treated for G(-) Bacteremia. History Source: Patient - Current Medication List Current Medications: Active Medications Acetaminophen (Tylenol Oral Solution -) 650 mg PO Q4H PRN PRN Reason: PAIN 1-3 Amlodipine Besylate (Norvasc -) 10 mg PO DAILY [facility] Last Admin: 06/08/20 10:46 Dose: 10 mg Documented by: Aspirin (Ecotrin -) 81 mg PO DAILY [facility] Last Admin: 06/08/20 10:46 Dose: 81 mg Documented by: Atorvastatin Calcium (Lipitor -) 20 mg PO HS [facility] Last Admin: 06/07/20 22:47 Dose: 20 mg Documented by: Collagenase (Santyl -) 1 applic TP DAILY [facility]; Protocol Last Admin: 06/07/20 10:31 Dose: 1 applic Documented by: Famotidine (Pepcid -) 20 mg PO DAILY [facility] Last Admin: 06/08/20 10:46 Dose: 20 mg Documented by: Ferrous Sulfate (Feosol -) 325 mg PO BID [facility] Last Admin: 06/08/20 10:46 Dose: 325 mg Documented by: Heparin Sodium (Porcine) (Heparin -) 5,000 unit SQ BID [facility] Last Admin: 06/08/20 10:45 Dose: 5,000 unit Documented by: Sodium Chloride (1/2 Normal Saline) 1,000 mls @ 75 mls/hr IV ASDIR [facility] Last Admin: 06/08/20 10:49 Dose: 75 mls/hr Documented by: Insulin Aspart (Novolog Vial Sliding Scale -) 1 vial SQ TID [facility]; Protocol Last Admin: 06/08/20 06:40 Dose: 2 units Documented by: Losartan Potassium (Cozaar -) 100 mg PO DAILY [facility] Last Admin: 06/08/20 10:46 Dose: 100 mg Documented by: Metoprolol Tartrate (Lopressor -) 25 mg PO BID [facility] Last Admin: 06/08/20 10:46 Dose: 25 mg Documented by: - Objective Vital Signs: Vital Signs Temperature 98 F 06/08/20 13:55 Pulse Rate 84 06/08/20 13:55 Respiratory Rate 20 06/08/20 13:55 Blood Pressure 147/76 06/08/20 13:55 O2 Sat by Pulse Oximetry (%) 99 06/08/20 09:00 Eyes: Yes: WNL, Conjunctiva Clear, EOM Intact HENT: Yes: WNL, Atraumatic, Normocephalic Neck: Yes: WNL, Supple, Trachea Midline Cardiovascular: Yes: WNL, Regular Rate and Rhythm Respiratory: Yes: WNL, Regular, CTA Bilaterally Gastrointestinal: Yes: WNL, Normal Bowel Sounds Genitourinary: Yes: WNL Musculoskeletal: Yes: WNL Extremities: Yes: Amputation Edema: No Integumentary: Yes: WNL Neurological: Yes: WNL, Alert, Oriented ...Motor Strength: WNL Psychiatric: Yes: WNL Labs: CBC, BMP 06/07/20 06:00 06/07/20 06:00 INR, PTT INR Cancelled 06/03/20 21:05 Fibrinogen 298.0 mg/dL (238-498) 05/26/20 05:16 Problem List - Problems (1) Diabetic foot ulcer Code(s): E11.621 - TYPE 2 DIABETES MELLITUS WITH FOOT ULCER; L97.509 - NON- PRESSURE CHRONIC ULCER OTH PRT UNSP FOOT W UNSP SEVERITY Qualifiers: Diabetes mellitus type: type 1 Laterality: right (2) Sepsis Code(s): A41.9 - SEPSIS, UNSPECIFIED ORGANISM (3) Septic shock Code(s): A41.9 - SEPSIS, UNSPECIFIED ORGANISM; R65.21 - SEVERE SEPSIS WITH SEPTIC SHOCK (4) Acute on chronic renal failure Code(s): N17.9 - ACUTE KIDNEY FAILURE, UNSPECIFIED; N18.9 - CHRONIC KIDNEY DISEASE, UNSPECIFIED Qualifiers: Acute renal failure type: unspecified Chronic kidney disease stage: unspecified stage Qualified Code(s): N17.9 - Acute kidney failure, unspecified; N18.9 - Chronic kidney disease, unspecified (5) Amyloid disease Code(s): E85.9 - AMYLOIDOSIS, UNSPECIFIED (6) Anemia Code(s): D64.9 - ANEMIA, UNSPECIFIED (7) Bacteremia Code(s): R78.81 - BACTEREMIA (8) CHF (congestive heart failure) Code(s): I50.9 - HEART FAILURE, UNSPECIFIED Qualifiers: Heart failure type: unspecified Heart failure chronicity: unspecified Qualified Code(s): I50.9 - Heart failure, unspecified (9) Elevated liver enzymes Code(s): R74.8 - ABNORMAL LEVELS OF OTHER SERUM ENZYMES (10) Pleural effusion Code(s): J90 - PLEURAL EFFUSION, NOT ELSEWHERE CLASSIFIED (11) Right lower lobe pneumonia Code(s): J18.9 - PNEUMONIA, UNSPECIFIED ORGANISM Qualifiers: Pneumonia type: due to unspecified organism Qualified Code(s): J18.9 - Pneumonia, unspecified organism (12) Troponin I above reference range Code(s): R79.89 - OTHER SPECIFIED ABNORMAL FINDINGS OF BLOOD CHEMISTRY Assessment/Plan 70 yr old black woman with PMHx low-normal systolic, diastolic CHF, ?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 foot, Chronic osteomyelitis of right foot, Diabetic neuropathy, Left leg below knee amputation, renal dysfunction, OA, Iron deficiency anemia, HLD, HTN, ESBL resistance, who presents to the ED from [facility] for evaluation of hypoxia and AMS that required intubation after recent admission for CHF. Suspected multilobar pnemonia and sepsis. Lethargy. MRI brain: multiple small bilateral cortical infarcts Plan: HTN: losartan and amlodipine are at maximum dosing; may increase metoprolol dose. On furosemide prn; consider thiazide diuretic; Hydralazine may be used if BP refractory. (BP parameters per neruologist noted). On furosemide prn per social work lecturer. Amyloidosis w/u at [facility] pending. Neuro w/u noted and appreciated: on ASA; BP parameters.
[2020-06-08] MEDS: COLLAGENASE CLOSTRIDIUM HIST. 30 GRAMS TUBE TP SCH (18:00)
[2020-06-08] MEDS: ATORVASTATIN CA 20 MG TABLET (FP) PO SCH (23:07)
[2020-06-09] MEDS: SODIUM CHLORIDE 0.45% 1,000 ML IV SCH (04:58)
[2020-06-09 05:44] VITALS: PULSE 85
[2020-06-09] MEDS: INSULIN SLIDING SCALE (NOVOLOG) 1 VIAL SQ SCH (05:57)
--- NOTE | 2020-06-09 07:11 | PN ---
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, Physician History of Present Illness: PULMONARY ALERT,COMFORTABLE,-RESP DISTRESS - Current Medication List Current Medications: Active Medications Acetaminophen (Tylenol Oral Solution -) 650 mg PO Q4H PRN PRN Reason: PAIN 1-3 Amlodipine Besylate (Norvasc -) 10 mg PO DAILY [facility] Last Admin: 06/08/20 10:46 Dose: 10 mg Documented by: Aspirin (Ecotrin -) 81 mg PO DAILY [facility] Last Admin: 06/08/20 10:46 Dose: 81 mg Documented by: Atorvastatin Calcium (Lipitor -) 20 mg PO HS [facility] Last Admin: 06/08/20 23:07 Dose: 20 mg Documented by: Collagenase (Santyl -) 1 applic TP DAILY [facility]; Protocol Last Admin: 06/08/20 18:00 Dose: 1 applic Documented by: Famotidine (Pepcid -) 20 mg PO DAILY [facility] Last Admin: 06/08/20 10:46 Dose: 20 mg Documented by: Ferrous Sulfate (Feosol -) 325 mg PO BID [facility] Last Admin: 06/08/20 23:08 Dose: 325 mg Documented by: Heparin Sodium (Porcine) (Heparin -) 5,000 unit SQ BID [facility] Last Admin: 06/08/20 23:08 Dose: 5,000 unit Documented by: Sodium Chloride (1/2 Normal Saline) 1,000 mls @ 75 mls/hr IV ASDIR [facility] Last Admin: 06/09/20 04:58 Dose: 75 mls/hr Documented by: Insulin Aspart (Novolog Vial Sliding Scale -) 1 vial SQ TID [facility]; Protocol Last Admin: 06/09/20 05:57 Dose: 4 units Documented by: Losartan Potassium (Cozaar -) 100 mg PO DAILY [facility] Last Admin: 06/08/20 10:46 Dose: 100 mg Documented by: Metoprolol Tartrate (Lopressor -) 25 mg PO BID [facility] Last Admin: 06/08/20 23:07 Dose: 25 mg Documented by: - Objective Vital Signs: Vital Signs Temperature 98.9 F 06/09/20 05:43 Pulse Rate 85 06/09/20 05:43 Respiratory Rate 20 06/09/20 05:43 Blood Pressure 143/72 06/09/20 05:43 O2 Sat by Pulse Oximetry (%) 98 06/08/20 21:00 Constitutional: Yes: Well Nourished, Calm Eyes: Yes: WNL HENT: Yes: WNL Neck: Yes: WNL Cardiovascular: Yes: Regular Rate and Rhythm, S1, S2 Respiratory: Yes: Diminished Gastrointestinal: Yes: Normal Bowel Sounds, Soft Extremities: Yes: Amputation (L BKA) Edema: No Labs: CBC, BMP Assessment/Plan ASSESSMENT AND PLAN: Acute Hypoxic Respiratory Failure improved Pneumonia UTI LV Diastolic Dysfunction Suspected Amyloidosis +Troponins likely Demand Ischemia HTN DM Hyperlipidemia Anemia Multiple small acute cva's - antibiotics completed - O2 to keep SpO2 >90% - aspiration precautions - PO as tolerated - DVT prophylaxis DR LEAL
--- NOTE | 2020-06-09 08:32 | PN ---
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 (short form) - Note 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: Neurology - Admission Chief Complaint: Facial droop, RUE weakness History of Present Illness: 70 year old female with a significant PMHx of Uncontrolled DM, Diabetic foot ulcer on R. foot, Chronic osteomyelitis of right foot, Diabetic neuropathy, Left leg below knee amputation, OA, Iron deficiency anemia, HLD, HTN, Charcot's joint, ESBL resistance and CHF who presents to the ED from [facility] for evaluation of hypoxia and AMS. The patient was previously discharged on 05/23 after having been treated for G(-) Bacteremia. Patient has been getting medical/infectious management. I was contacted 06/02 but Resident indicating that patient had right facial droop along with right upper extremity weakness and confusion. Patient symptoms improved and TPA not given. Advised noncontrast head CT which was without acute changes as well as CTA of the head to confirm no large vessel occlusion and was also negative. Advised to give aspirin 325 mg on 06/02 and start 81 mg daily as of 06/03. Recommended stroke work up including MRI brain which was completed and showed area of bilateral infarcts, suspicious for embolic phenomenon. carotid Dopplers completed and demonstrated no evidence of high-grade stenosis on the left but right side could not be visualized clearly. Overnight on 06/04/20 (Sunday into Sunday) contacted by resident due to patient having altered mental status. Explained that patient with underlying sepsis and did not have focal deficits and seem more generalized delirium. Repeat noncontrast head CT was recommended and did not show any acute changes. Somnolent and arousable but minimally verbal, appears fatigued. getting continued mgmt for toxic metabolic encephalopathy and infection. Following simple commands, mental status appears to be at baseline. Active Medications Acetaminophen (Tylenol Oral Solution -) 650 mg PO Q4H PRN PRN Reason: PAIN 1-3 Amlodipine Besylate (Norvasc -) 10 mg PO DAILY [facility] Last Admin: 06/08/20 10:46 Dose: 10 mg Documented by: Aspirin (Ecotrin -) 81 mg PO DAILY [facility] Last Admin: 06/08/20 10:46 Dose: 81 mg Documented by: Atorvastatin Calcium (Lipitor -) 20 mg PO HS [facility] Last Admin: 06/08/20 23:07 Dose: 20 mg Documented by: Collagenase (Santyl -) 1 applic TP DAILY [facility]; Protocol Last Admin: 06/08/20 18:00 Dose: 1 applic Documented by: Famotidine (Pepcid -) 20 mg PO DAILY [facility] Last Admin: 06/08/20 10:46 Dose: 20 mg Documented by: Ferrous Sulfate (Feosol -) 325 mg PO BID [facility] Last Admin: 06/08/20 23:08 Dose: 325 mg Documented by: Heparin Sodium (Porcine) (Heparin -) 5,000 unit SQ BID [facility] Last Admin: 06/08/20 23:08 Dose: 5,000 unit Documented by: Sodium Chloride (1/2 Normal Saline) 1,000 mls @ 75 mls/hr IV ASDIR [facility] Last Admin: 06/09/20 04:58 Dose: 75 mls/hr Documented by: Insulin Aspart (Novolog Vial Sliding Scale -) 1 vial SQ TID [facility]; Protocol Last Admin: 06/09/20 05:57 Dose: 4 units Documented by: Losartan Potassium (Cozaar -) 100 mg PO DAILY [facility] Last Admin: 06/08/20 10:46 Dose: 100 mg Documented by: Metoprolol Tartrate (Lopressor -) 25 mg PO BID [facility] Last Admin: 06/08/20 23:07 Dose: 25 mg Documented by: Physical Examination Vital Signs Period Temp Pulse Resp BP Sys/Dobson Pulse Ox Last 24 Hr 97.9 F-98.9 F 79-85 20-20 111-147/72-81 98-99 Constitutional: Yes: Well Nourished, No Distress, Calm Cardiovascular: Yes: Regular Rate and Rhythm Respiratory: Yes: Mechanically Ventilated, Rhonchi (diffuse) Gastrointestinal: Yes: Soft, Hypoactive Bowel Sounds Renal/: Yes: Lynn Present Edema: No Peripheral Pulses WNL: Yes Neurological: AWake, right facial weakness minimal, moves extremities grossly but not participating in confrontation testing, sensory intact, gait deferred Labs: CBCD WBC 8.0 K/mm3 (4.0-10.0) 06/07/20 06:00 RBC 3.36 M/mm3 (3.60-5.2) L 06/07/20 06:00 Hgb 9.3 GM/dL (10.7-15.3) L 06/07/20 06:00 Hct 28.9 % (32.4-45.2) L 06/07/20 06:00 MCV 86.0 fl (80-96) 06/07/20 06:00 MCHC 32.3 g/dl (32.0-36.0) 06/07/20 06:00 RDW 19.4 % (11.6-15.6) H 06/07/20 06:00 Plt Count 254 K/MM3 (134-434) 06/07/20 06:00 MPV 9.8 fl (7.5-11.1) 06/07/20 06:00 CMP Sodium 143 mmol/L (136-145) 06/07/20 06:00 Potassium 3.7 mmol/L (3.5-5.1) 06/07/20 06:00 Chloride 108 mmol/L (98-107) H 06/07/20 06:00 Carbon Dioxide 32 mmol/L (21-32) 06/07/20 06:00 Anion Gap 4 MMOL/L (8-16) L 06/07/20 06:00 BUN 26.2 mg/dL (7-18) H 06/07/20 06:00 Creatinine 1.5 mg/dL (0.55-1.3) H 06/07/20 06:00 Random Glucose 152 mg/dL (74-106) H 06/07/20 06:00 Calcium 8.8 mg/dL (8.5-10.1) 06/07/20 06:00 Total Bilirubin 0.8 mg/dL (0.2-1) 06/03/20 21:05 AST 25 U/L (15-37) 06/03/20 21:05 ALT 149 U/L (13-61) H 06/03/20 21:05 Alkaline Phosphatase 198 U/L (45-117) H 06/03/20 21:05 Total Protein 7.7 g/dl (6.4-8.2) 06/03/20 21:05 Albumin 2.1 g/dl (3.4-5.0) L 06/03/20 21:05 CARDIAC ENZYMES Creatine Kinase 28 U/L (26-192) 06/03/20 12:40 Troponin I 0.09 ng/ml (0.00-0.05) H 06/03/20 12:40 Plan: 70 year old female with a significant PMHx of Uncontrolled DM, Diabetic foot ulcer on R. foot, Chronic osteomyelitis of right foot, Diabetic neuropathy, Left leg below knee amputation, OA, Iron deficiency anemia, HLD, HTN, Charcot's joint, ESBL resistance and CHF who presents to the ED from [facility] for evaluation of hypoxia and AMS. The patient was previously discharged on 05/23 after having been treated for G(-) Bacteremia. Patient has been getting medical/infectious management. I was contacted 06/02 but Resident indicating that patient had right facial droop along with right upper extremity weakness and confusion. Patient symptoms improved and TPA not given. Advised noncontrast head CT which was without acute changes as well as CTA of the head to confirm no large vessel occlusion and was also negative. Advised to give aspirin 325 mg on 06/02 and start 81 mg daily as of 06/03. Recommended stroke work up including MRI brain which was completed overnight and showed area of bilateral infarcts, suspicious for embolic phenomenon. carotid Dopplers completed and demonstrated no evidence of high-grade stenosis on the left but right side could not be visualized clearly. Overnight on 06/04/20 (Sunday into Sunday) contacted by resident due to patient having altered mental status. Explained that patient with underlying sepsis and did not have focal deficits and seem more generalized delirium. Repeat noncontrast head CT was recommended and did not show any acute changes. getting continued mgmt for toxic metabolic encephalopathy and infection. More awake today, following simple commands. Not fully oriented yet but improving. Conitnue ID follow up and mgmt. Monitor bp, <150/90 Recommended. Physical therapy as tolerated. frequent reorientation, maintain hydration. Monitor labs, continue close follow-up. Dispo planning, neurologically stable at this time.
[2020-06-09] MEDS: ASPIRIN COATED 81 MG TABLET.EC PO SCH (09:07)
[2020-06-09] MEDS: FERROUS SO4 325 MG TABLET (FP) PO SCH (09:07)
[2020-06-09] MEDS: METOPROLOL TARTRATE 25 MG TABLET (FP) PO SCH (09:07)
[2020-06-09] MEDS: FAMOTIDINE 20 MG TABLET PO SCH (09:07)
[2020-06-09] MEDS: amLODIPine BESYLATE 10 MG TABLET (FP) PO SCH (09:07)
[2020-06-09] MEDS: LOSARTAN POTASSIUM 50 MG TABLET (FP) PO SCH (09:08)
[2020-06-09] MEDS: HEPARIN NA (PORCINE) 5,000 UNITS/ML 1ML VIAL SQ SCH (09:08)
[2020-06-09] MEDS: COLLAGENASE CLOSTRIDIUM HIST. 30 GRAMS TUBE TP SCH (09:08)
--- NOTE | 2020-06-09 09:27 | DS ---
Physical Examination Vital Signs: Vital Signs Temperature 98.9 F 06/09/20 05:43 Pulse Rate 85 06/09/20 05:43 Respiratory Rate 20 06/09/20 05:43 Blood Pressure 143/72 06/09/20 05:43 O2 Sat by Pulse Oximetry (%) 98 06/08/20 21:00 Cardiovascular: Yes: S1, S2 Respiratory: Yes: Regular, CTA Bilaterally Gastrointestinal: Yes: Normal Bowel Sounds, Soft Edema: No Neurological: Yes: Pre-Existing Deficit Labs: CBC, BMP 06/07/20 06:00 06/07/20 06:00 Discharge Summary Problems reviewed: Yes Reason For Visit: SEPSIS AMS PNEUMONIA Current Active Problems Amputated left leg (Acute) CVA (cerebral vascular accident) (Acute) Diabetic foot ulcer (Acute) HTN (hypertension) (Acute) Sepsis (Acute) Septic shock (Acute) Hospital Course: - Problems (1) Sepsis Assessment/Plan: -resolved -ID consult -IV meropenem--OFF ABX -Repeat BC negative -Afebrile -Cultures: Microbiology 05/29/20 06:10 Blood - Peripheral Venous Blood Culture - Final NO GROWTH AFTER 5 DAYS INCUBATION 05/29/20 06:10 Blood - Peripheral Venous Blood Culture - Final NO GROWTH AFTER 5 DAYS INCUBATION 05/25/20 18:30 Sputum - Endotrachea Suction/Ventilator Gram Stain - Final 05/25/20 18:30 Sputum - Endotrachea Suction/Ventilator Sputum Culture - Final Yeast Like Organism 05/25/20 09:40 Blood - Peripheral Venous Blood Culture - Final Lactose Fermenting Neg Bacilli 05/25/20 09:35 Blood - Peripheral Venous Blood Culture - Final Citrobacter Koseri 05/25/20 09:40 Urine - Urine - Catheterized Urine Culture - Final NO GROWTH OBTAINED Problems reviewed: Yes Code(s): A41.9 - SEPSIS, UNSPECIFIED ORGANISM (2) Acute on chronic renal failure Assessment/Plan: -Nephrology consult -2/2 to acute infection -Cr at baseline Problems reviewed: Yes Code(s): N17.9 - ACUTE KIDNEY FAILURE, UNSPECIFIED; N18.9 - CHRONIC KIDNEY DISEASE, UNSPECIFIED Qualifiers: Acute renal failure type: unspecified Chronic kidney disease stage: unspecified stage Qualified Code(s): N17.9 - Acute kidney failure, unspecified; N18.9 - Chronic kidney disease, unspecified (3) Amyloid disease -PATIENT REFUSED WORK UP IN PAST Problems reviewed: Yes Code(s): E85.9 - AMYLOIDOSIS, UNSPECIFIED (4) Anemia Assessment/Plan: -KARIS in the past -Feosol BID -Monitor H/H -no overt bleeding -Check thyroid profile Problems reviewed: Yes Code(s): D64.9 - ANEMIA, UNSPECIFIED (5) Pleural effusion Problems reviewed: Yes Code(s): J90 - PLEURAL EFFUSION, NOT ELSEWHERE CLASSIFIED (6) Right lower lobe pneumonia Assessment/Plan: -as above -O2 to keep SpO2>90% -Pulmonary consult -COVID 19 PCR negative -OFF IV abx -ID on board -Afebrile Problems reviewed: Yes Code(s): J18.9 - PNEUMONIA, UNSPECIFIED ORGANISM Qualifiers: Pneumonia type: due to unspecified organism Qualified Code(s): J18.9 - Pneumonia, unspecified organism (7) Troponin I above reference range Assessment/Plan: -2/2 to sepsis and demand ischemia -Cardiology consult Problems reviewed: Yes Code(s): R79.89 - OTHER SPECIFIED ABNORMAL FINDINGS OF BLOOD CHEMISTRY (8) HTN (hypertension) Assessment/Plan: -Losartan to 100 mg daily -Continue lopressor 25 mg po bid -Continue amlodipine 10 mg po daily -Titrate meds to meet goal <140/90 mm Hg Problems reviewed: Yes Code(s): I10 - ESSENTIAL (PRIMARY) HYPERTENSION (9) CHF (congestive heart failure) Assessment/Plan: -Continue BB + ARB+ CCB Problems reviewed: Yes Code(s): I50.9 - HEART FAILURE, UNSPECIFIED Qualifiers: Heart failure type: unspecified Heart failure chronicity: unspecified Qualified Code(s): I50.9 - Heart failure, unspecified (10) Elevated liver enzymes Assessment/Plan: -likely 2/2 to congestive hepatopathy vs suspected amyloidosis -Trending down -Avoid hepatotoxic drugs Problems reviewed: Yes Code(s): R74.8 - ABNORMAL LEVELS OF OTHER SERUM ENZYMES (11) CVA (cerebral vascular accident) Assessment/Plan: -ASA -Statin -Neurology consult noted ctapending due to renal function Problems reviewed: Yes Code(s): I63.9 - CEREBRAL INFARCTION, UNSPECIFIED Plan of Treatment: IV ABX/NEBS/RESPIRATORY SUPPORT Goals: DC TO SNF Condition: Improved - Instructions Referrals: Romain Carvalho JR [Primary Care Provider] - Disposition: ASSISTED FACILITY - Home Medications Comprehensive Discharge Medication List: Ambulatory Orders Aspirin 81 mg PO DAILY 05/11/20 Acetaminophen Oral Solution [Tylenol Oral Solution -] 650 mg PO Q4H PRN soln.oral 06/09/20 Amlodipine Besylate [Norvasc -] 10 mg PO DAILY tablet 06/09/20 Atorvastatin Ca [Lipitor] 20 mg PO HS tablet 06/09/20 Collagenase Clostridium Hist. [Santyl -] 1 applic TP DAILY tube 06/09/20 Famotidine [Pepcid -] 20 mg PO DAILY tablet 06/09/20 Ferrous Sulfate [Feosol] 325 mg PO BID ud 06/09/20 Heparin - 5,000 unit SQ BID vial 06/09/20 Insulin Sliding Scale [Novolog Vial Sliding Scale -] 1 vial SQ TID units 06/09/20 Losartan Potassium [Cozaar -] 100 mg PO DAILY tablet 06/09/20 Metoprolol Tartrate [Lopressor -] 25 mg PO BID tablet 06/09/20
[2020-06-09] MEDS ORDERED: PT OWN MED DRAWER 7, Y5N ONE (11:16)
[2020-06-09 11:18] LABS: BASO % 0.7 % (0-2.0); EOS % 2.1 % (0-4.5); HEMATOCRIT 29.1 % (32.4-45.2); HEMOGLOBIN 9.5 GM/dL (10.7-15.3); MCH 28.1 pg (25.7-33.7); MCHC 32.5 g/dl (32.0-36.0); MEAN CELL VOLUME 86.5 fl (80-96); MEAN PLT VOLUME 9.1 fl (7.5-11.1); MONO % 7.7 % (3.8-10.2); NEUT % 82.5 % (42.8-82.8); PLATELET COUNT 225 K/MM3 (134-434); RBC 3.36 M/mm3 (3.60-5.2); RDW 19.3 % (11.6-15.6); WHITE BLOOD COUNT 7.1 K/mm3 (4.0-10.0)
[2020-06-09 11:28] VITALS: BP 129/76; TEMP 98.1
--- NOTE | 2020-06-09 11:32 | PN ---
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 foot, Chronic osteomyelitis of right foot, Diabetic neuropathy, Left leg below knee amputation, OA, Iron deficiency anemia, HLD, HTN, Charcot's joint, ESBL re sistance and who presents to the ED from [facility] for evaluation of hypoxia and AMS. The patient was previously discharged on 05/23 after having been treated for G(-) Bacteremia. History Source: Patient - Current Medication List Current Medications: Active Medications Acetaminophen (Tylenol Oral Solution -) 650 mg PO Q4H PRN PRN Reason: PAIN 1-3 Amlodipine Besylate (Norvasc -) 10 mg PO DAILY [facility] Last Admin: 06/09/20 09:07 Dose: 10 mg Documented by: Aspirin (Ecotrin -) 81 mg PO DAILY [facility] Last Admin: 06/09/20 09:07 Dose: 81 mg Documented by: Atorvastatin Calcium (Lipitor -) 20 mg PO HS [facility] Last Admin: 06/08/20 23:07 Dose: 20 mg Documented by: Collagenase (Santyl -) 1 applic TP DAILY [facility]; Protocol Last Admin: 06/09/20 09:08 Dose: 1 applic Documented by: Famotidine (Pepcid -) 20 mg PO DAILY [facility] Last Admin: 06/09/20 09:07 Dose: 20 mg Documented by: Ferrous Sulfate (Feosol -) 325 mg PO BID [facility] Last Admin: 06/09/20 09:07 Dose: 325 mg Documented by: Heparin Sodium (Porcine) (Heparin -) 5,000 unit SQ BID [facility] Last Admin: 06/09/20 09:08 Dose: 5,000 unit Documented by: Sodium Chloride (1/2 Normal Saline) 1,000 mls @ 75 mls/hr IV ASDIR [facility] Last Admin: 06/09/20 04:58 Dose: 75 mls/hr Documented by: Insulin Aspart (Novolog Vial Sliding Scale -) 1 vial SQ TID [facility]; Protocol Last Admin: 06/09/20 05:57 Dose: 4 units Documented by: Losartan Potassium (Cozaar -) 100 mg PO DAILY [facility] Last Admin: 06/09/20 09:08 Dose: 100 mg Documented by: Metoprolol Tartrate (Lopressor -) 25 mg PO BID [facility] Last Admin: 06/09/20 09:07 Dose: 25 mg Documented by: - Objective Vital Signs: Vital Signs Temperature 98.1 F 06/09/20 10:00 Pulse Rate 85 06/09/20 10:00 Respiratory Rate 18 06/09/20 10:00 Blood Pressure 129/76 06/09/20 10:00 O2 Sat by Pulse Oximetry (%) 98 06/08/20 21:00 Eyes: Yes: WNL, Conjunctiva Clear, EOM Intact HENT: Yes: WNL, Atraumatic, Normocephalic Neck: Yes: WNL, Supple, Trachea Midline Cardiovascular: Yes: WNL, Regular Rate and Rhythm Respiratory: Yes: WNL, Regular, CTA Bilaterally Gastrointestinal: Yes: WNL, Normal Bowel Sounds Genitourinary: Yes: WNL Musculoskeletal: Yes: WNL Extremities: Yes: Amputation Edema: No Integumentary: Yes: WNL Labs: CBC, BMP 06/09/20 10:58 INR, PTT INR Cancelled 06/03/20 21:05 Fibrinogen 298.0 mg/dL (238-498) 05/26/20 05:16 Problem List - Problems (1) Diabetic foot ulcer Code(s): E11.621 - TYPE 2 DIABETES MELLITUS WITH FOOT ULCER; L97.509 - NON- PRESSURE CHRONIC ULCER OTH PRT UNSP FOOT W UNSP SEVERITY Qualifiers: Diabetes mellitus type: type 1 Laterality: right (2) Sepsis Code(s): A41.9 - SEPSIS, UNSPECIFIED ORGANISM (3) Septic shock Code(s): A41.9 - SEPSIS, UNSPECIFIED ORGANISM; R65.21 - SEVERE SEPSIS WITH SEPTIC SHOCK (4) Acute on chronic renal failure Code(s): N17.9 - ACUTE KIDNEY FAILURE, UNSPECIFIED; N18.9 - CHRONIC KIDNEY DISEASE, UNSPECIFIED Qualifiers: Acute renal failure type: unspecified Chronic kidney disease stage: unspecified stage Qualified Code(s): N17.9 - Acute kidney failure, unspecified; N18.9 - Chronic kidney disease, unspecified (5) Amyloid disease Code(s): E85.9 - AMYLOIDOSIS, UNSPECIFIED (6) Anemia Code(s): D64.9 - ANEMIA, UNSPECIFIED (7) Bacteremia Code(s): R78.81 - BACTEREMIA (8) CHF (congestive heart failure) Code(s): I50.9 - HEART FAILURE, UNSPECIFIED Qualifiers: Heart failure type: unspecified Heart failure chronicity: unspecified Qualified Code(s): I50.9 - Heart failure, unspecified (9) Elevated liver enzymes Code(s): R74.8 - ABNORMAL LEVELS OF OTHER SERUM ENZYMES (10) Pleural effusion Code(s): J90 - PLEURAL EFFUSION, NOT ELSEWHERE CLASSIFIED (11) Right lower lobe pneumonia Code(s): J18.9 - PNEUMONIA, UNSPECIFIED ORGANISM Qualifiers: Pneumonia type: due to unspecified organism Qualified Code(s): J18.9 - Pneumonia, unspecified organism (12) Troponin I above reference range Code(s): R79.89 - OTHER SPECIFIED ABNORMAL FINDINGS OF BLOOD CHEMISTRY Assessment/Plan 70 yr old black woman with PMHx low-normal systolic, diastolic CHF, ?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 foot, Chronic osteomyelitis of right foot, Diabetic neuropathy, Left leg below knee amputation, renal dysfunction, OA, Iron deficiency anemia, HLD, HTN, ESBL resistance, who presents to the ED from [facility] for evaluation of hypoxia and AMS that required intubation after recent admission for CHF. Suspected multilobar pnemonia and sepsis. Lethargy. MRI brain: multiple small bilateral cortical infarcts Plan: HTN: losartan and amlodipine are at maximum dosing; may increase metoprolol dose. On furosemide prn; consider thiazide diuretic; Hydralazine may be used if BP refractory. (BP parameters per neruologist noted). On furosemide prn per [employer] worker. Amyloidosis w/u at [facility] pending. Neuro w/u noted and appreciated: on ASA; BP parameters. D/c telemetry
[2020-06-09 11:53] LABS: BILIRUBIN,TOTAL 0.7 mg/dL (0.2-1); BLOOD UREA NITROGEN 23.8 mg/dL (7-18); CALCIUM 8.3 mg/dL (8.5-10.1); CREATININE 1.5 mg/dL (0.55-1.3); POTASSIUM 3.9 mmol/L (3.5-5.1); TOT PROT 7.4 g/dl (6.4-8.2)
== END 2020-06-09 12:23 | DRG 870 ==
LOC: JER 09:05 → JERBED 13:43 → JICU 16:39 → J7W 05-31 23:53 → J4W 06-02 22:23
PROVIDERS: ADMIT Internal Medicine Pulmonary Disease; ATTEND Family Medicine
PROC: 0CHY7BZ Insertion of Airway into Mouth and Throat, Via Natural or Artificial Opening (ICD-10-PCS; principal; 2020-05-25)
PROC: 5A1955Z Respiratory Ventilation, Greater than 96 Consecutive Hours (ICD-10-PCS; 2020-05-25)
PROC: 0DH673Z Insertion of Infusion Device into Stomach, Via Natural or Artificial Opening (ICD-10-PCS; 2020-05-25)
PROC: 05HM33Z Insertion of Infusion Device into Right Internal Jugular Vein, Percutaneous Approach (ICD-10-PCS; 2020-05-25)
DX: A41.89 Other specified sepsis (principal); J18.9 Pneumonia, unspecified organism; J96.01 Acute respiratory failure with hypoxia; R65.21 Severe sepsis with septic shock; I63.89 Other cerebral infarction; G93.41 Metabolic encephalopathy; N17.9 Acute kidney failure, unspecified; E85.4 Organ-limited amyloidosis; R18.8 Other ascites; I24.8 Other forms of acute ischemic heart disease; E87.2 Acidosis; L97.508 Non-pressure chronic ulcer of other part of unspecified foot with other specified severity; M86.671 Other chronic osteomyelitis, right ankle and foot; I42.8 Other cardiomyopathies; I13.0 Hypertensive heart and chronic kidney disease with heart failure and stage 1 through stage 4 chronic kidney disease, or unspecified chronic kidney disease; I50.42 Chronic combined systolic (congestive) and diastolic (congestive) heart failure; N39.0 Urinary tract infection, site not specified; E87.0 Hyperosmolality and hypernatremia; D72.829 Elevated white blood cell count, unspecified; R16.0 Hepatomegaly, not elsewhere classified; I95.9 Hypotension, unspecified; D50.9 Iron deficiency anemia, unspecified; E87.5 Hyperkalemia; I27.20 Pulmonary hypertension, unspecified; M51.35 Other intervertebral disc degeneration, thoracolumbar region; N18.9 Chronic kidney disease, unspecified; R79.89 Other specified abnormal findings of blood chemistry; E78.5 Hyperlipidemia, unspecified; D63.1 Anemia in chronic kidney disease; E11.69 Type 2 diabetes mellitus with other specified complication; E11.22 Type 2 diabetes mellitus with diabetic chronic kidney disease; E13.621 Other specified diabetes mellitus with foot ulcer; Z99.2 Dependence on renal dialysis; Z89.512 Acquired absence of left leg below knee
CPT/HCPCS: 36415; 36600; 70450-TC; 70496-TC; 70551-TC; 71045-TC-FY; 71250-TC; 74176-TC; 80048; 80053; 80061; 81003; 82272; 82550; 82553; 82565; 82607; 82728; 82746; 82803; 82962; 82977; 83540; 83550; 83605; 83615; 83721; 83735; 83880; 84100; 84156; 84300; 84439; 84443; 84484; 84540; 85025; 85027; 85045; 85384; 85610; 85730; 86140; 86850; 86900; 86901; 87040; 87070; 87077; 87086; 87186; 87205; 93005; 93010; 93306-TC; 93880-TC; 94002; 97116-GP; 97162-GP; 99285-25; J0131; J1644; Q9967; U0003

== ENCOUNTER 2020-06-29 12:17 | Inpatient (IN) | payer OTHER ==
--- NOTE | 2020-06-29 13:13 | PDOC ---
History of Present Illness - General Chief Complaint: Rectal Bleed Stated Complaint: Rectal Bleed Time Seen by Provider: 06/29/20 13:05 History Source: Patient Exam Limitations: Clinical Condition - History of Present Illness Initial Comments: 06/29/20 14:13 70F with PMH of uncontrolled DM, KARIS, CHF, and recent stroke w/ baseline changes to mental status was sent to the ED by rehab facility for bright red blood per rectum. She is a poor historian. The pts daughter was at bedside, stated that the patient's mental status is current baseline, but wasn't able to provide much more history either. PMH: as in HPI SH: see below Meds: see med list Allergies: NKDA PCP: Dr. Pillo Yuan ROS: unable to obtain, pt is poor historian 2/2 baseline mental status PE GENERAL: Awake, alert, not oriented; no acute distress HEAD: No signs of trauma, normocephalic, atraumatic EYES: PERRLA, EOMI, sclera anicteric, conjunctiva clear ENT: Auricles normal inspection, hearing grossly normal, nares patent, moist mucosa, oropharynx clear without exudates. NECK: Normal ROM, supple, no LAD, JVD, or masses HEART: Regular rate and rhythm, normal S1/S2, no murmurs, rubs or gallops, peripheral pulses normal and equal bilaterally. LUNGS: No distress, speaks full sentences, clear to auscultation bilaterally ABDOMEN: Soft, nontender. No guarding, no rebound. No masses RECTAL: bright visible blood from rectum EXTREMITIES: Normal inspection, Normal range of motion, no edema. No clubbing or cyanosis. NEUROLOGICAL: CNII-XII grossly intact. Normal speech, no focal sensorimotor deficits SKIN: Warm, Dry, normal turgor, no rashes or lesions noted Assessment and Plan 1. Diverticulitis/diverticulosis 2. Hemorrhoids 3. CA 4. mesenteric ischemia Vasu Crystal, PGY1 Emergency Medicine Past History - Medical History Allergies/Adverse Reactions: Allergies Allergy/AdvReac Type Severity Reaction Status Date / Time No Known Allergies Allergy Verified 06/29/20 12:32 Home Medications: Ambulatory Orders Aspirin 81 mg PO DAILY 05/11/20 Acetaminophen Oral Solution [Tylenol Oral Solution -] 650 mg PO Q4H PRN soln.oral 06/09/20 Amlodipine Besylate [Norvasc -] 10 mg PO DAILY tablet 06/09/20 Atorvastatin Ca [Lipitor] 20 mg PO HS tablet 06/09/20 Famotidine [Pepcid -] 20 mg PO DAILY tablet 06/09/20 Ferrous Sulfate [Feosol] 325 mg PO BID ud 06/09/20 Heparin - 5,000 unit SQ BID vial 06/09/20 Insulin Sliding Scale [Novolog Vial Sliding Scale -] 1 vial SQ TID units 06/09/20 Losartan Potassium [Cozaar -] 100 mg PO DAILY tablet 06/09/20 Metoprolol Tartrate [Lopressor -] 25 mg PO BID tablet 06/09/20 Bisacodyl [Dulcolax] 10 mg RC DAILY 06/29/20 Collagenase Clostridium Hist. [Santyl -] 1 applic TP BID 06/29/20 Furosemide [Lasix] 20 mg PO DAILY 06/29/20 Insulin Detemir [Levemir Flextouch] 6 unit SQ AM 06/29/20 Mirtazapine 7.5 mg PO DAILY 06/29/20 Multivit with Minerals/Lutein [Pub Senior Vitamin Tablet] 1 each PO DAILY 06/29/20 Polyethylene Glycol 3350 [Miralax (For Daily Use) -] 17 gm PO DAILY 06/29/20 Senna [place] Extract [Senna] 176 mg PO DAILY 06/29/20 Vit C/Ascorb Sod/Multivit-Min [Emergen-C 500 mg Chewable Tab] 500 mg PO DAILY 06/29/20 Zinc 50 mg PO BID 06/29/20 Anemia: No Asthma: No Cancer: No Cardiac Disorders: No CVA: No COPD: No CHF: Yes Diabetes: Yes GI Disorders: No Disorders: No HTN: Yes Hypercholesterolemia: Yes Liver Disease: No Seizures: No Thyroid Disease: No - Surgical History Orthopedic Surgery: Yes (LEFT BKA) - Reproductive History Is Patient Now?: No - Psycho-Social/Smoking History Smoking History: Never smoked Have you smoked in the past 12 months: No - Substance Abuse Hx (Audit-C & DAST Scrn) How often the patient has a drink containing alcohol: Never Score: In Men: 4 or > Positive; In Women: 3 or > Positive: 0 Screen Result (Pos requires Nsg. Audit-10AR): Negative In the last yr the pt used illegal drug/Rx for NonMed reason: No Score: Yes response is considered Positive: 0 Screen Result (Positive result requires Nsg. DAST-10): Negative *Physical Exam - Vital Signs Last Vital Signs Temp Pulse Resp BP Pulse Ox 97.8 F 16 L 18 170/95 98 06/29/20 12:17 06/29/20 12:17 06/29/20 12:17 06/29/20 12:17 06/29/20 12:17 ED Treatment Course - LABORATORY CBC & Chemistry Diagram: 06/29/20 13:00 06/29/20 13:00 Medical Decision Making - Medical Decision Making 06/29/20 14:39 70F sent to the ED for rectal bleeding. 06/29/20 15:01 Labs notable for: -Hgb 9.3 consistent w/ previous labs -BUN elevated, consistent w/ previous labs -hypernatremia @ 152. -lactic acid wnl -> less likely to be mesenteric ischemia Pending abd CT. 06/29/20 17:11 Pt admitted to m/s for further workup. Discharge - Discharge Information Problems reviewed: Yes Clinical Impression/Diagnosis: Bright red blood per rectum Condition: Fair - Admission Yes - Follow up/Referral Referrals: Pillo Yuan MD [Primary Care Provider] - - Patient Discharge Instructions - Post Discharge Activity
--- NOTE | 2020-06-29 13:26 | PDOC ---
Attending Attestation - Resident Resident Name: Vasu Crystal - ED Attending Attestation I have performed the following: I have examined & evaluated the patient, The case was reviewed & discussed with the resident, I agree w/resident's findings & plan - HPI HPI: 06/29/20 13:22 70-year-old female with history of hypertension, CHF, anemia, left BKA, chronic osteomyelitis recently [facility] to [facility]/09 after admission for pneumonia/altered mental status presents now from [facility] with rectal bleeding. Patient noted to have bright red blood per rectum with tachycardia, referred for evaluation. Patient is alert but has no acute complaints, denies any abdominal pain. Per records, is on aspirin and iron but no other blood thinners. - Physicial Exam PE: 06/29/20 13:24 vss, HD normal alert, elderly woman lying in stretcher in nad dry mucosa, no pallor s1s2 rrr, 2/6 GABRIELA. lungs clear abd distended but no focal guarding/rebound. ? bladder distension, no cvat L BKA - Medical Decision Making 06/29/20 13:25 70-year-old female with history of anemia presents with rectal bleeding, sent from [facility] for evaluation. Hemodynamically stable here with benign abdominal exam but sarika blood on rectal exam. Most consistent with lower GI bleed, hemodynamically stable at this time. On aspirin but no other blood thinners. Labs, urinalysis IV fluids, EKG Transfuse as needed Admission given active rectal bleeding 06/29/20 15:26 stool guaiac positive, hgb at baseline. chem pending, ct pending no further sudden bleed, HD stable 06/29/20 16:17 hyperNa CTAP pending Heart Score/ECG Review #1 ECG reviewed & interpreted by me at: 13:42 General ECG Interpretation: Sinus Rhythm (with APCs), Normal Rate (81), Normal Intervals (qtc 457), No acute ischemic changes Discharge - Discharge Information Problems reviewed: Yes Clinical Impression/Diagnosis: Bright red blood per rectum Condition: Fair - Follow up/Referral Referrals: Pillo Yuan MD [Primary Care Provider] - - Patient Discharge Instructions - Post Discharge Activity
--- OUTSIDE RECORDS SUMMARY | 2020-06-29 14:20 | XMS ---
:1950 Author Organization [facility] Care Team Providers Name Role Phone Jacey Peres MD Unavailable Unavailable Sabounchi, Castillo Unavailable Unavailable Sabounchi, Castillo Unavailable Unavailable Sabounchi, Castillo Unavailable Unavailable Sabtiachi, Castillo Unavailable Unavailable Roby Toro MD Unavailable Unavailable Fausto Castillo MD Unavailable Unavailable May Sanders Unavailable Unavailable Zeitlin Unavailable Unavailable Zeitlin Unavailable Unavailable Zeitlin Unavailable Unavailable Zeitlin Unavailable Unavailable Zeitlin Unavailable Unavailable Zeitlin Unavailable Unavailable Zeitlin Unavailable Unavailable Zeitlin Unavailable Unavailable Zeitlin Unavailable Unavailable Zeitlin Unavailable Unavailable Zeitlin Unavailable Unavailable Zeitlin Unavailable Unavailable Zeitlin Unavailable Unavailable Zeitlin Unavailable Unavailable Zeitlin Unavailable Unavailable Zeitlin Unavailable Unavailable Zeitlin Unavailable Unavailable Zeitlin Unavailable Unavailable Zeitlin Unavailable Unavailable Zeitlin Unavailable Unavailable CARMENCITA Valles Unavailable Unavailable Re-disclosure Warning The records that you are about to access may contain information from federally- assisted alcohol or drug abuse programs. If such information is present, then the following federally mandated warning applies: This information has been disclosed to you from records protected by federal confidentiality rules (42 CFR part 2). The federal rules prohibit you from making any further disclosure of this information unless further disclosure is expressly permitted by the written consent of the person to whom it pertains or as otherwise permitted by 42 CFR part 2. A general authorization for the release of medical or other information is NOT sufficient for this purpose. The Federal rules restrict any use of the information to criminally investigate or prosecute any alcohol or drug abuse patient.The records that you are about to access may contain highly sensitive health information, the redisclosure of which is protected by Article 27-F of the [facility] Public Health law. If you continue you may haveaccess to information: Regarding HIV / AIDS; Provided by facilities licensed or operated by the [facility] Office of Mental Health; or Provided by the [facility] Office for People With Developmental Disabilities. If such information is present, then the following [facility] mandated warning applies: This information has been disclosed to you from confidential records which are protected by state law. State law prohibits you from making any further disclosure of this information without the specific written consent of the person to whom it pertains, or as otherwise permitted by law. Any unauthorized further disclosure in violation of state law may result in a fine or half-way sentence or both. A general authorization for the release of medical or other information is NOT sufficient authorization for further disclosure. Advance Directives Directive Description Customer Support Advisor Relay Repairer Status Observation Data Description Source(s ) CPR [facility] CPR SIGMACAR E Center for ([facility] Rehabilitation for N ursing And Rehabilita t ion) Advance No completed [facility] Advance No completed [facility] Allergies and Adverse Reactions Type Description Substance Reaction Status Data Source(s ) 9 N/A N/A SIGMACARE ([facility] ) Drug allergy No Known Drug No Known Drug NO KNOWN ALLERG [facility] Allergies Allergies [place] Hospital Encounters Encounter Providers Location Date Indications Data Source(s ) Inpatient Attender: Polo 03/17/2020 PYELONEPHRITIS [place] [facility] MBBSAttender: 06:54:00 PM Hosp ital Fausto Castillo EDT - MDAdmitter: Polo 04/08/2020 Hai 03:25:00 PM MBBSConsultant: JENNIFER OakleylinConsultant: May LoweryoorConsultant: Jacey Peres MDConsultant: Roby Toro MD PYELONEPHRITIS Patient discharged. Inpatient Attender: Castillo Unit 4-Unit 5 11/28/2019 SIGMAC ARE ([facility] [place]venu 07:45:00 PM EST - Center for Nursing And 12/05/2019 Rehabilitation ) 11:45:00 AM EST Patient discharged. Functional Status Medications Medication Brand Start Product Dose Route Administrative Pharmacy St atus Indications Reaction Description Data Name Date Form Instructions Instructions Source(s) Iron // UNSPECIF 100 INTRAV active [facility] Sucrose 2020 IED mg ENOUS [place] [facility] 08:54: Hospital 00 AM EDT meropenem [place] 04/08/ UNSPECIF 500 INTRAV active White Meropenem nem 2020 IED mg ENOUS [place] 08:54: Hospital 00 AM EDT Hydralazine Hydral 04/07/ TABLET 50 mg ORAL active [facility] Hydrochlori azine 2020 [place] de 50 MG Hcl 04:35: Hospital Oral Tablet 00 PM Hydralazine EDT Hcl Ferrous 04/07/ TABLET 325 ORAL active [facility] Sulfate 2020 mg [place] 03:58: Hospital 00 PM EDT Docusate Docusa 04/07/ CAPSULE 100 ORAL active Wh ite Sodium 100 te 2020 mg [place] MG Oral Sodium 03:53: Hospital Capsule 00 PM [DOK] EDT Tylenol 992810 12/03/ complet Tylenol 32 5 SIGMACARE (acetaminop 38961 2019 ed mg tablet (S [place] hen) 325 mg 11:08: [place] tablet 13 PM [place] for EST Nursing And Rehabilita tion) Zosyn Pipera 12/03/ complet Zosyn 3.375 SIGMACARE (piperacill cillin 2019 ed gram (Sutto n in-tazobact 3000 07:02: intravenous [place] am) 3.375 MG / 23 AM solution Cente r for gram tazoba EST Nursing intravenous ctam And solution 375 MG Rehabilit a Inject tion) ion [Zosyn ] albuterol Albute 12/03/ complet albutero l SIGMACARE sulfate 2.5 rol 2019 ed sulfate 2.5 ( [place] mg/3 mL 0.83 06:58: mg/3 mL [place] (0.083 %) MG/ML 16 AM (0.083 %) Ruth ter for solution Inhala EST solution for N ursing for tion nebulization And nebulizatio Soluti Rehabi yissel n on tion) Tylenol 208259 12/03/ complet Tylenol 32 5 SIGMACARE (acetaminop 19457 2020 ed mg tablet (S [place] hen) 325 mg 06:54: [place] tablet 22 AM [place] for EST Nursing And Rehabilita tion) VANCOMYCIN 11/28/ complet VANCOMYCI N SIGMACARE 1GM/ 200ML 2020 ed 1GM/ 200ML ([place] tton ISO 02:00: ISO [place] 00 PM Center for EST Nursing And Rehabilita tion) Glucerna 1 [id number] Glucern a 1 SIGMACARE [place] 51298 2020 ed Heraclio 0.04 (Hassan (tx.glu 10:47: gram-1 [place] c 01 AM kcal/mL oral Center for intol,lf,so EST liquid Nursin g y-fiber) And 0.04 gram-1 Rehabili ta kcal/mL tion) oral liquid losartan Losart losartan 100 SIGMACARE 100 mg an 2020 ed mg tablet ([place]assan tablet Potass 10:26: [place] ium 43 AM Center for 100 MG EST Nursing Oral And Tablet Rehabilita tion) metoprolol 24 HR metoprol ol SIGMACARE succinate metopr 2019 ed succinate ER (Hassan ER 25 mg olol 10:26: 25 mg [place] tablet,exte succin 43 AM tablet,ext en Center for nded ate 25 EST ded release Nursin g release 24 MG 24 hr And hr Extend Rehabilita ed tion) Releas e Oral Tablet atorvastati atorva atorva statin SIGMACARE n 80 mg statin 2019 ed 80 mg tablet ([place] tablet 80 MG 10:26: [facility] Oral 43 AM Center for Tablet EST Nursing And Rehabilita tion) ferrous ferrou ferrous SI GMACARE sulfate 325 s 2019 ed sulfate 325 ( [place] mg (65 mg sulfat 10:26: mg (65 mg P ark iron) e 325 43 AM iron) tablet Cent er for tablet MG EST Nursing Oral And Tablet Rehabilita tion) Admelog 3 ML Admelog SIGM ACARE SoloStar Insuli 2019 ed SoloStar ([place] U-100 n 10:26: U-100 [place] Insulin Lispro 43 AM Insulin Center for (insulin 100 EST lispro 100 Nursi ng lispro) UNT/ML unit/mL And lispro 100 Pen subcutaneous R ehabilita unit/mL Inject pen tion) subcutaneou or s pen [Admel og] aspirin 81 Aspiri aspirin 81 SIGMACARE mg chewable n 81 2019 ed mg chewable ( [place] tablet MG 10:26: tablet [place] Chewab 42 AM Center for le EST Nursing Tablet And Rehabilita tion) amlodipine Amlodi 11/28/ complet amlodip ine SIGMACARE 10 mg pine 2019 ed 10 mg tablet (Sutto n tablet 10 MG 10:26: Park Oral 42 AM Center for Tablet EST Nursing And Rehabilita tion) Basaglar 3 ML 11/28/ complet Basaglar SI GMACARE KwikPen Insuli 2019 ed KwikPen (Hassan U-100 n 10:26: U-100 [place] Insulin Glargi 42 AM Insulin 100 Ce nter for (insulin ne 100 EST unit/mL (3 Ita sing glargine) UNT/ML mL) And 100 unit/mL Pen subcutaneous Rehabilita (3 mL) Inject tion) subcutaneou or s [Basag lar] Tubersol Purifi 11/28/ complet Tubersol 5 SIGMACARE (tuberculin ed 2019 ed tub. (Hassan ppd) 5 tub. Protei 10:02: unit/0.1 mL [place] unit/0.1 mL n 05 AM intradermal Center for intradermal Deriva EST injection N ursing injection tive solution And solution of Rehabilita Tuberc tion) ulin 50 UNT/ML Inject able Soluti on [Tuber veena] Tubersol Purifi 11/28/ complet Tubersol 5 SIGMACARE (tuberculin ed 2019 ed tub. (Hassan ppd) 5 tub. Protei 10:02: unit/0.1 mL [place] unit/0.1 mL n 05 AM intradermal Center for intradermal Deriva EST injection N ursing injection tive solution And solution of Rehabilita Tuberc tion) ulin 50 UNT/ML Inject able Soluti on [Tuber veena] Levofloxaci 12/06/ TABLET 500 INTRAG complet White n 2017 mg ASTRIC ed [place] 11:55: Hospital 00 AM EST Vitamin B Cyanoc 12/06/ UNSPECIF 1000 INTRAM active White 12 1 MG/ML obalam 2017 IED ug USCULA Plain s Injectable in 11:55: R Hospita l Solution (Vitam 00 AM Cyanocobala in EST min B-12)* (Vitamin B-12)* Insulin Insuli 12/04/ LIQUID 15 SUBCUT active Wh ite Glargine n 2017 ANEOUS [place] 100 UNT/ML Glargi 11:26: Hospi jaison Injectable ne 00 PM Solution EST [Lantus] Aspirin 81 Aspiri TABLET, 81 mg ORAL active [facility] [place] MG Chewable n CHEWABLE Plai ns Tablet Hospital Lisinopril Lisino TABLET 10 mg ORAL complet [place]vin 5 MG Oral pril ed [place] Tablet Hospital Mupirocin Mupiro CREAM active White 20 MG/ML oriana [place] Topical [facility] Cream m Mupirocin Calcium Insulin PRE-FILL 10 complet White Glargine,Hu ED PEN ed [place] m.rec.anlog SYRINGE Hospi jaison Metoprolol Metopr TABLET 100 ORAL active Whi te Tartrate 50 olol mg [place] MG Oral Tartra Hospital Tablet te Insulin Insuli LIQUID 6 SUBCUT complet Whi te Lispro 100 n ANEOUS ed [place] UNT/ML Human Hospital Injectable Lispro Solution [Humalog] Insulin Human Lispro atorvastati Atorva TABLET 80 mg ORAL active [place] n 80 MG statin [place] Oral Tablet [facility] al [Lipitor] m Atorvastati n Calcium heparin Hepari INJECTIO 5000 SUBCUT active Wh ite sodium, n N ANEOUS [place] porcine Sodium Hospital 5000 UNT/ML (Porci Injectable ne) Solution Heparin Sodium (Porcine) COLLAGENASE Collag OINTMENT 1 TOPICA complet White 0.25 UNT/MG enase {Appl L ed [place] Topical [facility] Hospital Ointment r} [Santyl] Collagenase Losartan Losart TABLET 100 ORAL complet Whit e Potassium an mg ed [place] 50 MG Oral Potass Hospita l Tablet ium [Cozaar] Insulin Insuli LIQUID 24 SUBCUT complet Whi te Glargine n ANEOUS ed [place] 100 UNT/ML Glargi Hospita l Injectable ne Solution [Lantus] Insulin Insuli LIQUID 1 SUBCUT complet Whi te Lispro 100 n ANEOUS ed [place] UNT/ML Human Hospital Injectable Lispro Solution [Humalog] Insulin Human Lispro Nystatin Nystat POWDER 1 TOPICA active Whi te 100 UNT/MG in {Appl L [place] Topical [facility] Hospital Powder r} [Nystop] Diphenhydra Diphen CAPSULE 25 mg ORAL active White mine hydram [place] Hydrochlori ine Hospital de 25 MG Hcl Oral Capsule [Benadryl] Diphenhydra mine Hcl gabapentin Gabape CAPSULE 100 ORAL active Wh ite 100 MG Oral ntin mg [place] Capsule Hospital [Neurontin] Gabapentin gabapentin Gabape CAPSULE 300 ORAL active Wh ite 300 MG Oral ntin mg [place] Capsule Hospital [Neurontin] Gabapentin Docusate Docusa CAPSULE 100 ORAL active Whit e Sodium 100 te mg [place] MG Oral Sodium Hospital Capsule 3 ML Insuli PRE-FILL active White Insulin, n ED PEN [place] Aspart, Aspart SYRINGE Hospita l Human 100 UNT/ML Cartridge [NovoLog] Insulin Aspart Amlodipine Amlodi TABLET 10 mg ORAL active Wh ite 10 MG Oral pine [place] Tablet [facility] Amlodipine te Besylate Furosemide Furose TABLET 20 mg ORAL active Wh ite 20 MG Oral mide [place] Tablet Hospital ferrous Ferrou LIQUID 300 ORAL complet White sulfate 60 s mg ed [place] MG/ML Oral Sulfat Hospita l Solution e Ferrous Sulfate Insurance Providers Payer name Policy type Policy ID Covered Covered green party's Policy P harriet / Coverage green party ID relationship to [place] Inf ormation type starks AETNA PPO [id number] SP [id number] MEDICARE [id number] SP [id number] 61 1 MEDICAID [id number] PT [id number] MEDICARE [id number] PT [id number] 61 1 AETNA OTHER [id number] PT [id number] MEDICARE [id number] PT [id number] A Medicaid Medicaid + Self + Pending Aetna O [id number] Self [id number] Medicare Medicare [id number] Self [id number] 61 Part A Part A 1 Medicare Medicare [id number] Self [id number] 61 Part B Part B 1 Medicare Medicare [id number] Self [id number] 61 Part A Part A 1 Medicaid Medicaid + Self + Pending Aetna O [id number] Self [id number] Medicare 18 [id number] Self [id number] 61 Part A 1 Medicaid 3 + Self + Pending Aetna 8 [id number] Self [id number] Medicare 2 [id number] Self [id number] 61 Part B 1 Medicare Medicare [id number] Self [id number] Part A Part A 1 Medicare 18 [id number] Self [id number] Part A 1 Problems, Conditions, and Diagnoses Code Display Name Description Problem Type Effective Data Dates Source(s) K63.5 Polyp of colon K63.5 Diagnosis 03/18/2020 [facility] [place] 12:22:00 AM Hospital EDT I70.238 Atherosclerosis of I70.238 Diagnosis 03/18/2020 [place] arteries of 12:22:00 AM Hospi jaison right leg with EDT ulceration of other part of lower right leg E11.51 Type 2 diabetes E11.51 Diagnosis 03/18/2020 [place] [facility] mellitus with 12:22:00 AM Hospital diabetic peripheral EDT angiopathy without gangrene 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/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 12:22:00 AM Hospita l other part of right EDT foot limited to breakdown of skin E11.621 Type 2 diabetes E11.621 Diagnosis 03/18/2020 [place] mellitus with foot 12:22:00 AM Hospi jaison ulcer EDT E11.40 Type 2 diabetes E11.40 Diagnosis 03/18/2020 [facility] [place] mellitus with 12:22:00 AM Hospital diabetic EDT neuropathy, unspecified N17.9 Acute kidney N17.9 Diagnosis 03/18/2020 [place] failure, 12:22:00 AM Hospital unspecified EDT N10 Acute N10 Diagnosis 03/18/2020 [place] pyelonephritis 12:22:00 AM Hospital EDT M86.9 Osteomyelitis, M86.9 Diagnosis 03/18/2020 [place] unspecified 12:22:00 AM Hospital EDT L02.611 Cutaneous abscess L02.611 Diagnosis 03/18/2020 [facility] [place] of right foot 12:22:00 AM Hospital EDT E11.69 Type 2 diabetes E11.69 Diagnosis 03/18/2020 [place] mellitus with other 12:22:00 AM Hosp ital specified EDT complication R06.02 Shortness of breath Shortness of Diagnosis 12/03/2019 SIG MACARE breath 12:00:00 AM ([facility]habil[facility] n) A68.9 Relapsing fever, Relapsing fever, Diagnosis 12/03/2019 SI GMACARE unspecified unspecified 12:00:00 AM ([facility] Nursing And Rehabil[facility] n) R05 Cough Cough Diagnosis 12/03/2019 SIGMACARE 12:00:00 AM ([facility] R50.9 Fever, unspecified Fever, unspecified Diagnosis 0 SIGMACARE 12:00:00 AM ([facility] n) R62.7 Adult failure to Adult failure to Diagnosis 11/28/2019 SI GMACARE thrive thrive 12:00:00 AM ([facility] n) M86.9 Osteomyelitis, Osteomyelitis, Diagnosis 11/28/2019 SIGMAC ARE unspecified unspecified 12:00:00 AM ([facility]) 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 n) Z79.2 detention (current) detention Diagnosis 11/28/2019 SIGMA CARE use of antibiotics (current) use of 12:00:00 AM ([facility] antibiotics [facility] Z11.1 Encounter for Encounter for Diagnosis 11/28/2019 SIGMACAR E screening for screening for 12:00:00 AM ([facility] respiratory respiratory [facility] for tuberculosis tuberculosis Nursing An d Rehabilitatio n) I10 Essential (primary) Essential Diagnosis 11/28/2019 SIGMA CARE hypertension (primary) 12:00:00 AM ([facility] hypertension [facility] And Rehabilitatio n) M62.81 Muscle weakness Muscle weakness Diagnosis 11/28/2019 SIGM ACARE (generalized) (generalized) 12:00:00 AM ([facility]) M17.0 Bilateral primary Bilateral primary Diagnosis 11/28/2019 SIGMACARE osteoarthritis of osteoarthritis of 12:00:00 AM ([facility] knee knee EST Center for Nursing And Rehabilitatio n) Z89.512 Acquired absence of Acquired absence Diagnosis 11/28/2019 SIGMACARE left leg below knee of left leg below 12:00:00 AM ([facility] knee EST [place] for Nursing And Rehabilitatio n) 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 12:00:00 AM ([facility] Staphylococcus causing diseases EST Cent er for aureus infection as classd elswhr Nu rsing And the cause of Rehabilitati o diseases classified n) elsewhere Z95.828 Presence of other Presence of other Diagnosis 11/28/2019 SIGMACARE vascular implants vascular implants 12:00:00 AM ([facility] and grafts and grafts EST [place] for Nursing And Rehabilitatio n) S91.301D Unspecified open Unspecified open Diagnosis 11/28/2019 SI GMACARE wound, right foot, wound, right foot, 12:00:00 AM ([facility] subsequent subsequent EST Center for encounter encounter Nursing And Rehabilitatio n) E11.8 Type 2 diabetes Type 2 diabetes Diagnosis 11/28/2019 SIGM ACARE mellitus with mellitus with 12:00:00 AM ([facility] unspecified unspecified EST Center for complications complications Nursing And Rehabilitatio n) S83.004A Unspecified Unspecified Diagnosis 11/28/2019 SIGMACARE dislocation of dislocation of 12:00:00 AM ([place] right patella, right patella, EST Center for initial encounter initial encounter Nursing And Rehabilitatio n) M14.671 Charcot's joint, Charcot's joint, Diagnosis 11/28/2019 SI GMACARE right ankle and right ankle and 12:00:00 AM ([facility] foot foot EST Center for Nursing And Rehabilitatio n) M86.071 Acute hematogenous Acute hematogenous Diagnosis 0 SIGMACARE osteomyelitis, osteomyelitis, 12:00:00 AM ([place] right ankle and right ankle and EST Cent er for foot foot Nursing And Rehabilitatio n) 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 Diagnosis 11/28/19 20 SIGMACARE right ankle and ank/ft in 12:00:00 [facility] infec/parastc dis EST Center for and parasitic classd elswhr Nursing And diseases classified Rehab ilitatio elsewhere n) E11.9 Type 2 diabetes Type 2 diabetes Diagnosis 11/28/2019 SIGM ACARE mellitus without mellitus without 12:00:00 AM ( [facility] complications complications EST Center f or Nursing And Rehabilitatio n) Surgeries/Procedures Procedure Description Date Indications Data Source(s) Picc Insertion 04/07/2020 [place] 12:00:00 AM Hospital EDT Probe Cover With Gel 48 In. 04/07/2020 [place] 12:00:00 AM Hospital EDT Power Picc Dual Lumen 4FR 04/07/2020 [facility] [place] 12:00:00 AM Hospital EDT Oxygen therapy (procedure) 04/02/2020 [place] 12:00:00 AM Hospital EDT Magnetic resonance imaging of 03/30/2020 [place] right foot 12:00:00 AM Hospital EDT Magnetic resonance imaging of 03/29/2020 [place] right knee 12:00:00 AM Hospital EDT Fluoroscopy (procedure) 03/29/2020 [facility] [place] 12:00:00 AM Hospital EDT Femur X-ray (procedure) 03/29/2020 [facility] [place] 12:00:00 AM Hospital EDT Oxygen therapy (procedure) 03/29/2020 [place] 12:00:00 AM Hospital EDT Magnetic resonance imaging of 03/28/2020 [place] right knee 12:00:00 AM Hospital EDT X-ray of right knee 03/26/[address] [place] (procedure) 12:00:00 AM Hospital EDT X-ray of right foot 03/21/[address] [place] (procedure) 12:00:00 AM Hospital EDT Computed tomography of aorta 03/19/2020 [place] (procedure) 12:00:00 AM Hospital EDT Doppler ultrasound of artery 03/18/2020 [place] of both lower extremities 12:00:00 AM Ho spital EDT Physical therapy procedure 03/18/2020 [place] (regime/therapy) 12:00:00 AM Hospital EDT Electrocardiographic procedure 03/17/2020 [place] (procedure) 12:00:00 AM Hospital EDT Plain chest X-ray (procedure) 03/17/2020 [place] 12:00:00 AM Hospital EDT Computed tomography of abdomen 03/17/2020 [place] and pelvis with intravenous 12:00:00 AM Hospital and oral contrast EDT Results ID Date Data Source [id number] 06/09/2020 12:00:00 AM EDT [facility] Name Value Range Interpretation Code Description Data Diamante rce(s) Supporting Document(s ) 2019-nCoV [facility] RNA XXX BETHEL+probe- Imp This lab was ordered by [facility] and reported by [email or web address] ID Date Data Source [id number] 06/06/2020 03:30:00 PM EDT [facility] Name Value Range Interpretation Description Data Sup porting Code Source(s) Document(s ) SARS [facility] coronavirus 2 RNA This lab was ordered by [facility] and reported by [facility]. ID Date Data Source [id number] 06/02/2020 12:45:00 PM EDT [facility] Name Value Range Interpretation Description Data Sup porting Code Source(s) Document(s ) SARS [facility] coronavirus 2 RNA This lab was ordered by [facility] and reported by [facility]. ID Date Data Source [id number] 05/25/2020 09:40:00 AM EDT [facility] Name Value Range Interpretation Description Data Sup porting Code Source(s) Document(s ) SARS [facility] coronavirus 2 RNA This lab was ordered by [facility] and reported by [facility]. ID Date Data Source [id number] 05/22/2020 10:13:00 AM EDT [facility] Name Value Range Interpretation Code Description Data Diamante rce(s) Supporting Document(s ) HOLOGIC [facility] SARS-CoV-2 TMA PCR This lab was ordered by [facility] and reported by [employer]. ID Date Data Source [id number] 05/11/2020 04:20:00 PM EDT [facility] Name Value Range Interpretation Description Data Sup porting Code Source(s) Document(s ) SARS [facility] coronavirus 2 RNA This lab was ordered by [facility] and reported by [facility]. ID Date Data Source [id number] 04/23/2020 07:56:00 AM EDT [facility] Name Value Range Interpretation Code Description Data Diamante rce(s) Supporting Document(s ) SARS-CoV-2 [facility] , RNA This lab was ordered by [facility] and reported by [employer]. ID Date Data Source [id number] 04/08/2020 03:29:00 PM EDT [facility] Name Value Range Interpretation Description Data Sup porting Code Source(s) Document(s ) Bacteria ST[employer] COAG [place] identified in NEGATIVE Hospital Wound by Culture ID Date Data Source [id number] 04/08/2020 03:29:00 PM EDT [facility] Name Value Range Interpretation Description Data Sup porting Code Source(s) Document(s ) Hemoglobin.g NEGATIVE [facility] nal [Presence] in Stool --1st specimen ID Date Data Source [id number] 04/08/2020 [facility]:00[facility]ADRIANA GUERRERO Name Value Range Interpretation Description Data Sup porting Code Source(s) Document(s ) Glucose 153 mg/dL [place] [Mass/volume] Hospital in Capillary blood by Glucometer ID Date Data Source [id number] 04/08/2020 10:34:00 AM EDT [facility] Name Value Range Interpretation Code Description Data Diamante rce(s) Supporting Document(s ) SARS-CoV-2 [facility] , RNA This lab was ordered by [facility] and reported by [employer]. ID Date Data Source [id number] 04/08/2020 08:19:00 AM EDT [facility] Name Value Range Interpretation Description Data Sup porting Code Source(s) Document(s ) GLUCOSE To Be [facility] COMMENT Repeated Hospital ID Date Data Source [id number] 04/08/2020 06:11:00 AM EDT [facility] Name Value Range Interpretation Description Data Sup porting Code Source(s) Document(s ) Platelet mean 10.4 fL [facility] volume [facility] [Entitic volume] in Blood by Automated count ID Date Data Source [id number] 04/08/2020 06:11:00 AM [facility] Value Range Interpretation Description Data Sup porting Code Source(s) Document(s ) Platelets 258 [facility] [#/volume] in 10*3/uL Hospital Blood by Automated count ID Date Data Source [id number] 04/08/2020 06:11:00 AM [facility] Value Range Interpretation Description Data Sup porting Code Source(s) Document(s ) Erythrocyte 17.6 % [facility] Hospital width [Ratio] by Automated count ID Date Data Source [id number] 04/08/2020 06:11:00 AM [facility] Value Range Interpretation Description Data Sup porting Code Source(s) Document(s ) Erythrocyte mean 30.6 [facility] corpuscular g/dL Hospital hemoglobin concentration [Mass/volume] by Automated count ID Date Data Source [id number] 04/08/2020 06:11:00 AM [facility] Value Range Interpretation Description Data Sup porting Code Source(s) Document(s ) Erythrocyte 25.1 pg [facility] corpuscular hemoglobin [Entitic mass] by Automated count ID Date Data Source [id number] 04/08/2020 06:11:00 AM [facility] Value Range Interpretation Description Data Sup porting Code Source(s) Document(s ) Erythrocyte 81.9 fL [facility] corpuscular volume [Entitic volume] by Automated count ID Date Data Source [id number] 04/08/2020 06:11:00 AM [facility] Value Range Interpretation Description Data Sup porting Code Source(s) Document(s ) Hematocrit 23.5 % [facility] [Volume Hospital Fraction] of Blood by Automated count ID Date Data Source [id number] 04/08/2020 06:11:00 AM [facility] NOTIFICATION AND READ BACK OF CRITICAL R ESULTS TO ERICKA TREJO RN-4E AT 0724 ON 04/08/20 BY Amrik Marquez. Name Value Range Interpretation Description Data Sup porting Code Source(s) Document(s ) Hemoglobin 7.2 g/dL [facility] [Mass/volume] Hospital in Blood ID Date Data Source [id number] 04/08/2020 06:11:00 AM EDT [facility] Name Value Range Interpretation Description Data Sup porting Code Source(s) Document(s ) Erythrocytes 2.87 [facility] [#/volume] in 10*6/uL Hospital Blood by Automated count ID Date Data Source [id number] 04/08/2020 06:11:00 AM [facility] Name Value Range Interpretation Description Data Sup porting Code Source(s) Document(s ) Leukocytes 5.9 [facility] [#/volume] in 10*3/uL Hospital Blood by Automated count ID Date Data Source [id number] 04/07/2020 [facility]43[facility] Name Value Range Interpretation Description Data Sup porting Code Source(s) Document(s ) Calcium 8.4 mg/dL [facility] [Mass/volume Hospital ] in Serum or Plasma ID Date Data Source [id number] 04/07/2020 04:43:00 PM [facility] Name Value Range Interpretation Code Description Data Diamante rce(s) Supporting Document(s ) Urea 22.5 [facility] nitrogen/Cre Hospital atinine [Mass Ratio] in Serum or Plasma ID Date Data Source [id number] 04/07/2020 04:43:00 PM [facility] Name Value Range Interpretation Description Data Sup porting Code Source(s) Document(s ) Creatinine 1.2 mg/dL [facility] [Mass/volume] Hospital in Serum or Plasma ID Date Data Source [id number] 04/07/2020 04:43:00 PM EDT [facility] Name Value Range Interpretation Description Data Sup porting Code Source(s) Document(s ) Urea 27 mg/dL [facility] [Mass/volume ] in Serum or Plasma ID Date Data Source [id number] 04/07/2020 04:43:00 PM EDT [facility] Name Value Range Interpretation Code Description Data Diamante rce(s) Supporting Document(s ) Anion gap in 11 [facility] Serum or [facility] Plasma ID Date Data Source [id number] 04/07/2020 04:43:00 PM EDT [facility] Name Value Range Interpretation Description Data Sup porting Code Source(s) Document(s ) Carbon 28 mmol/L [facility] dioxide, Hospital total [Moles/volu me] in Serum or Plasma ID Date Data Source [id number] 04/07/2020 04:43:00 PM EDT [facility] Name Value Range Interpretation Description Data Sup porting Code Source(s) Document(s ) Chloride 106 [facility] [Moles/volum mmol/L Hospital e] in Serum or Plasma ID Date Data Source [id number] 04/07/2020 04:43:00 PM EDT [facility] Name Value Range Interpretation Description Data Sup porting Code Source(s) Document(s ) Potassium 3.9 [facility] [Moles/volume mmol/L Hospital ] in Serum or Plasma ID Date Data Source [id number] 04/07/2020 04:43:00 PM EDT [facility] Name Value Range Interpretation Description Data Sup porting Code Source(s) Document(s ) Sodium 141 mmol/L [facility] [Moles/volu Hospital me] in Serum or Plasma ID Date Data Source [id number] 04/07/2020 04:43:00 PM EDT [facility] Name Value Range Interpretation Description Data Sup porting Code Source(s) Document(s ) Glucose 174 mg/dL [facility] [Mass/volume Hospital ] in Serum or Plasma ID Date Data Source [id number] 04/07/2020 06:25:00 AM EDT [facility] Value Range Interpretation Code Description Data Supporting Source(s) Document(s ) NUCLEATED RBCS 0.0 % [facility] (AUTO Hospital DIFF%)DIS ID Date Data Source [id number] 04/07/2020 06:25:00 AM EDT [facility] Value Range Interpretation Description Data Sup porting Code Source(s) Document(s ) Differential MANUAL [facility] cell count Hospital method - Blood ID Date Data Source [id number] 04/07/2020 06:25:00 AM EDT [facility] Value Range Interpretation Code Description Data Diamante rce(s) Supporting Document(s ) Cells 100 [facility] Counted Hospital Total [#] in Blood ID Date Data Source [id number] 04/07/2020 06:25:00 AM EDT [facility] Value Range Interpretation Description Data Sup porting Code Source(s) Document(s ) Fibrin strands PRESENT [facility] [Presence] in Hospital Blood by Light microscopy ID Date Data Source [id number] 04/07/2020 06:25:00 AM EDT [facility] Value Range Interpretation Code Description Data Diamante rce(s) Supporting Document(s ) SCHISTOCYTES OCC [facility] ID Date Data Source [id number] 04/07/2020 06:25:00 AM EDT [facility] Value Range Interpretation Code Description Data Diamante rce(s) Supporting Document(s ) TARGET CELLS OCC [facility] ID Date Data Source [id number] 04/07/2020 06:25:00 AM EDT [facility] Value Range Interpretation Code Description Data Supporting Source(s) Document(s ) POLYCHROMASIA 1+ [facility] ID Date Data Source [id number] 04/07/2020 06:25:00 AM EDT [facility] Value Range Interpretation Code Description Data Diamante rce(s) Supporting Document(s ) HYPOCHROMIA 1+ [facility] ID Date Data Source [id number] 04/07/2020 06:25:00 AM EDT [facility] Value Range Interpretation Code Description Data Diamante rce(s) Supporting Document(s ) MACROCYTOSIS [facility] ID Date Data Source [id number] 04/07/2020 06:25:00 AM EDT [facility] Value Range Interpretation Code Description Data Diamante rce(s) Supporting Document(s ) MICROCYTOSIS [facility] ID Date Data Source [id number] 04/07/2020 06:25:00 AM EDT [facility] Value Range Interpretation Code Description Data Diamante rce(s) Supporting Document(s ) ANISOCYTOSIS 1+ [facility] ID Date Data Source [id number] 04/07/2020 06:25:00 AM EDT [facility] Value Range Interpretation Description Data Sup porting Code Source(s) Document(s ) Eosinophils 0.19 [facility] [#/volume] in 10*3/uL Hospital Blood by Manual count ID Date Data Source [id number] 04/07/2020 06:25:00 AM EDT [facility] Value Range Interpretation Description Data Sup porting Code Source(s) Document(s ) Monocytes 0.34 [facility] [#/volume] in 10*3/uL Hospital Blood by Manual count ID Date Data Source [id number] 04/07/2020 06:25:00 AM EDT [facility] Name Value Range Interpretation Description Data Sup porting Code Source(s) Document(s ) Lymphocytes 1.25 [facility] [#/volume] in 10*3/uL Hospital Blood by Manual count ID Date Data Source [id number] 04/07/2020 06:25:00 AM EDT [facility] Name Value Range Interpretation Description Data Sup porting Code Source(s) Document(s ) Neutrophils 3.02 [facility] [#/volume] in 10*3/uL Hospital Blood by Manual count ID Date Data Source [id number] 04/07/2020 06:25:00 AM EDT [facility] Value Range Interpretation Description Data Sup porting Code Source(s) Document(s ) Metamyelocytes/ 1 % [facility] 100 leukocytes Hospital in Blood by Manual count ID Date Data Source [id number] 04/07/2020 06:25:00 AM EDT [facility] Value Range Interpretation Description Data Sup porting Code Source(s) Document(s ) Eosinophils/100 4 % [facility] leukocytes in Hospital Blood by Manual count ID Date Data Source [id number] 04/07/2020 06:25:00 AM EDT [facility] Value Range Interpretation Description Data Sup porting Code Source(s) Document(s ) Monocytes/100 7 % [facility] leukocytes in Hospital Blood by Manual count ID Date Data Source [id number] 04/07/2020 06:25:00 AM EDT [facility] Value Range Interpretation Description Data Sup porting Code Source(s) Document(s ) Lymphocytes/100 26 % [facility] leukocytes in Hospital Blood by Manual count ID Date Data Source [id number] 04/07/2020 06:25:00 AM EDT [facility] Name Value Range Interpretation Description Data Sup porting Code Source(s) Document(s ) Neutrophils/100 62 % [facility] leukocytes in Hospital Blood by Manual count ID Date Data Source [id number] 04/05/2020 05:43:00 AM EDT [facility] Name Value Range Interpretation Description Data Sup porting Code Source(s) Document(s ) Immature 0.05 [facility] granulocytes 10*3/uL Hospital [#/volume] in Blood by Automated count ID Date Data Source [id number] 04/05/2020 05:43:00 AM EDT [facility] Value Range Interpretation Description Data Sup porting Code Source(s) Document(s ) Basophils 0.04 [facility] [#/volume] in 10*3/uL Hospital Blood by Automated count ID Date Data Source [id number] 04/05/2020 05:43:00 AM EDT [facility] Value Range Interpretation Description Data Sup porting Code Source(s) Document(s ) Eosinophils 0.36 [facility] [#/volume] in 10*3/uL Hospital Blood by Automated count ID Date Data Source [id number] 04/05/2020 05:43:00 AM EDT [facility] Name Value Range Interpretation Description Data Sup porting Code Source(s) Document(s ) Monocytes 0.31 [facility] [#/volume] in 10*3/uL Hospital Blood by Automated count ID Date Data Source [id number] 04/05/2020 05:43:00 AM EDT [facility] Name Value Range Interpretation Description Data Sup porting Code Source(s) Document(s ) Lymphocytes 0.60 [facility] [#/volume] in 10*3/uL Hospital Blood by Automated count ID Date Data Source [id number] 04/05/2020 05:43:00 AM EDT [facility] Value Range Interpretation Description Data Sup porting Code Source(s) Document(s ) Neutrophils 2.54 [facility] [#/volume] in 10*3/uL Hospital Blood by Automated count ID Date Data Source [id number] 04/05/2020 05:43:00 AM EDT [facility] Value Range Interpretation Description Data Sup porting Code Source(s) Document(s ) Nucleated 0.0 % [facility] erythrocytes/10 Hospital 0 leukocytes [Ratio] in Blood by Automated count ID Date Data Source [id number] 04/05/2020 05:43:00 AM EDT [facility] Value Range Interpretation Description Data Sup porting Code Source(s) Document(s ) Immature 1.3 % [facility] granulocytes/10 Hospital 0 leukocytes in Blood by Automated count ID Date Data Source [id number] 04/05/2020 05:43:00 AM EDT [facility] Value Range Interpretation Description Data Sup porting Code Source(s) Document(s ) Basophils/100 1.0 % [facility] leukocytes in [facility] Blood by Automated count ID Date Data Source [id number] 04/05/2020 05:43:00 AM EDT [facility] Value Range Interpretation Description Data Sup porting Code Source(s) Document(s ) Eosinophils/100 9.2 % [facility] leukocytes in [facility] Blood by Automated count ID Date Data Source [id number] 04/05/2020 05:43:00 AM EDT [facility] Value Range Interpretation Description Data Sup porting Code Source(s) Document(s ) Monocytes/100 7.9 % [facility] leukocytes in [facility] Blood by Automated count ID Date Data Source [id number] 04/05/2020 05:43:00 AM EDT [facility] Value Range Interpretation Description Data Sup porting Code Source(s) Document(s ) Lymphocytes/10 15.4 % [facility] 0 leukocytes Hospital in Blood by Automated count ID Date Data Source [id number] 04/05/2020 05:43:00 AM EDT [facility] Value Range Interpretation Description Data Sup porting Code Source(s) Document(s ) Neutrophils/10 65.2 % [facility] 0 leukocytes Hospital in Blood by Automated count ID Date Data Source [id number] 04/02/2020 03:38:00 PM EDT [facility] Value Range Interpretation Code Description Data Supporting Source(s) Document(s ) PLATELET NORMAL [facility] Hospital ID Date Data Source [id number] 04/02/2020 03:38:00 PM EDT [facility] Value Range Interpretation Description Data Sup porting Code Source(s) Document(s ) POIKILOCYTOSIS OCC [facility] ID Date Data Source [id number] 04/02/2020 03:38:00 PM EDT [facility] Value Range Interpretation Description Data Sup porting Code Source(s) Document(s ) Basophils 0.09 [facility] [#/volume] in 10*3/uL Hospital Blood by Manual count ID Date Data Source [id number] 04/02/2020 03:38:00 PM EDT [facility] Value Range Interpretation Description Data Sup porting Code Source(s) Document(s ) Basophils/100 2 % [facility] leukocytes in Hospital Blood by Manual count ID Date Data Source [id number] 03/30/2020 03:49:00 PM EDT [facility] Value Range Interpretation Description Data Sup porting Code Source(s) Document(s ) MEAN 78.1 fL [facility] CORPUSCULAR Hospital VOLUME ID Date Data Source [id number] 03/29/2020 05:14:00 AM EDT [facility] Name Value Range Interpretation Description Data Sup porting Code Source(s) Document(s ) Manual MANUAL [facility] differential Hospital performed [Presence] in Blood ID Date Data Source [id number] 03/29/2020 05:14:00 AM EDT [facility] Name Value Range Interpretation Code Description Data Diamante rce(s) Supporting Document(s ) ZOHREH CELLS 1+ [facility] ID Date Data Source [id number] 03/29/2020 05:14:00 AM EDT [facility] Value Range Interpretation Code Description Data Diamante rce(s) Supporting Document(s ) OVALOCYTES OCC [facility] ID Date Data Source [id number] 03/28/2020 07:46:00 AM EDT [facility] Name Value Range Interpretation Description Data Sup porting Code Source(s) Document(s ) Ferritin 158.0 [facility] [Mass/volume ng/mL Hospital ] in Serum or Plasma ID Date Data Source [id number] 03/28/2020 07:46:00 AM EDT [facility] Name Value Range Interpretation Description Data Sup porting Code Source(s) Document(s ) Folate 5.2 ng/mL [facility] [Mass/volum Hospital e] in Serum or Plasma ID Date Data Source [id number] 03/28/2020 07:46:00 AM EDT [facility] Name Value Range Interpretation Description Data Sup porting Code Source(s) Document(s ) Cobalamin > 2000 [facility] (Vitamin B12) pg/mL Hospital [Mass/volume] in Serum or Plasma ID Date Data Source [id number] 03/28/2020 07:46:00 AM EDT [facility] Name Value Range Interpretation Description Data Sup porting Code Source(s) Document(s ) Iron saturation 11 % [facility] [Mass Fraction] Hospital in Serum or Plasma ID Date Data Source [id number] 03/28/2020 07:46:00 AM EDT [facility] Name Value Range Interpretation Description Data Sup porting Code Source(s) Document(s ) UNSAT IRON 257 ug/dL [facility] Hospital CAPACITY ID Date Data Source [id number] 03/28/2020 07:46:00 AM EDT [facility] Value Range Interpretation Description Data Sup porting Code Source(s) Document(s ) Iron binding 292 ug/dL [facility] Hospital [Mass/volume ] in Serum or Plasma ID Date Data Source [id number] 03/28/2020 07:46:00 AM EDT [facility] Value Range Interpretation Code Description Data Supporting Source(s) Document(s ) Iron 35 ug/dL [facility] [Mass/volum Hospital e] in Serum or Plasma ID Date Data Source [id number] 03/26/2020 05:52:00 AM EDT [facility] Value Range Interpretation Description Data Sup porting Code Source(s) Document(s ) C reactive 45.2 mg/L [facility] protein Hospital [Mass/volume ] in Serum or Plasma ID Date Data Source [id number] 03/26/2020 05:52:00 AM EDT [facility] Name Value Range Interpretation Description Data Sup porting Code Source(s) Document(s ) Urate 7.6 mg/dL [facility] [Mass/volum Hospital e] in Serum or Plasma ID Date Data Source [id number] 03/25/2020 06:42:00 AM EDT [facility] Value Range Interpretation Description Data Sup porting Code Source(s) Document(s ) Erythrocyte 70 mm/h [facility] sedimentation Hospital rate by Westergren method ID Date Data Source [id number] 03/25/2020 06:42:00 AM [facility] Value Range Interpretation Description Data Sup porting Code Source(s) Document(s ) Myelocytes/100 1 % [facility] leukocytes in Hospital Blood by Manual count ID Date Data Source [id number] 03/[facility] Description Data Sup porting Code Source(s) Document(s ) Magnesium 1.7 mg/dL [facility] [Mass/volume] Hospital in Serum or Plasma ID Date Data Source [id number] 03/24/2020 07:47:00 AM [facility] Value Range Interpretation Description Data Sup porting Code Source(s) Document(s ) Aspartate 12 U/L White aminotransferase [place] [Enzymatic Hospital activity/volume] in Serum or Plasma ID Date Data Source [id number] 03/24/2020 07:47:00 AM [facility] Value Range Interpretation Description Data Sup porting Code Source(s) Document(s ) Alanine 9 U/L [facility] aminotransferase Hospital [Enzymatic activity/volume] in Serum or Plasma ID Date Data Source [id number] 03/24/2020 [facility] Interpretation Description Data Sup porting Code Source(s) Document(s ) Alkaline 137 U/L [facility] phosphatase Hospital [Enzymatic activity/volume ] in Serum or Plasma ID Date Data Source [id number] 03/24/2020 07:47:00 AM [facility] Value Range Interpretation Description Data Sup porting Code Source(s) Document(s ) Bilirubin.t 0.3 mg/dL [facility] [Mass/volum e] in Serum or Plasma ID Date Data Source [id number] 03/24/2020 [facility]47[facility] Name Value Range Interpretation Code Description Data Diamante rce(s) Supporting Document(s ) Albumin/Glob 0.9 [facility] ulin [Mass Hospital Ratio] in Serum or Plasma ID Date Data Source [id number] 03/24/2020 07:47[facility] Name Value Range Interpretation Description Data Sup porting Code Source(s) Document(s ) Albumin 2.9 g/dL [facility] [Mass/volume Hospital ] in Serum or Plasma ID Date Data Source [id number] 03/24/2020 07:47:00 AM [facility] Name Value Range Interpretation Description Data Sup porting Code Source(s) Document(s ) Protein 6.2 g/dL [facility] [Mass/volume Hospital ] in Serum or Plasma ID Date Data Source [id number] 03/22/2020 05:41:00 AM [facility] Name Value Range Interpretation Description Data Sup porting Code Source(s) Document(s ) Variant 1 % [facility] lymphocytes/100 Hospital leukocytes in Blood by Manual count ID Date Data Source [id number] 03/21/2020 01:22:00 PM [facility] Name Value Range Interpretation Description Data Sup porting Code Source(s) Document(s ) Bacteria ESCHERICHIA COLI White identified (ESBL) [place] [facility]ound by Hospital Culture Bacteria CORYNEBACTERIUM White identified SPECIES [place] in W[facility] by Hospital Culture ID Date Data Source [id number] 03/21/2020 12:56:00 PM [facility] THERE ARE NO REFERENCE RANGES FOR RANDOM URINES. Name Value Range Interpretation Description Data Sup porting Code Source(s) Document(s ) Creatinine 43.8 [facility] [Mass/volume] mg/dL Hospital in Urine ID Date Data Source [id number] 03/21/2020 12:56:00 PM [facility] THERE ARE NO REFERENCE RANGES FOR RANDOM URINES. Name Value Range Interpretation Description Data Sup porting Code Source(s) Document(s ) Protein 75.8 [facility] [Mass/volume mg/dL Hospital ] in Urine ID Date Data Source [id number] 03/21/2020 12:56:00 PM [facility] THERE ARE NO REFERENCE RANGES FOR RANDOM URINES. Name Value Range Interpretation Description Data Sup porting Code Source(s) Document(s ) Sodium 65 mmol/L [facility] [Moles/volu Hospital nj] in Urine ID Date Data Source [id number] 03/21/2020 12:56:00 PM [facility] Name Value Range Interpretation Description Data Sup porting Code Source(s) Document(s ) URINE FOR NEGATIVE [facility] EOSINOPHILS FOR EOS Hospital ID Date Data Source [id number] 03/21/2020 12:56:00 PM [facility] Name Value Range Interpretation Description Data Sup porting Code Source(s) Document(s ) Yeast 1+ [facility] [Presence] in Hospital Urine sediment by Light microscopy ID Date Data Source [id number] 03/21/2020 12:56:00 PM [facility] Name Value Range Interpretation Description Data Sup porting Code Source(s) Document(s ) Epithelial 1+ [facility] cells.squamous Hospital [#/area] in Urine sediment by Microscopy high power field ID Date Data Source [id number] 03/21/2020 12:56:00 PM [facility] Name Value Range Interpretation Description Data Sup porting Code Source(s) Document(s ) Bacteria 1+ [facility] [#/area] in Hospital Urine sediment by Microscopy high power field ID Date Data Source [id number] 03/21/2020 12:56:00 PM EDT [facility] Name Value Range Interpretation Description Data Sup porting Code Source(s) Document(s ) Erythrocytes 10-20 [facility] [#/area] in /[HPF] Hospital Urine sediment by Microscopy high power field ID Date Data Source [id number] 03/21/2020 12:56:00 PM EDT [facility] Name Value Range Interpretation Description Data Sup porting Code Source(s) Document(s ) Leukocytes 40-60 [facility] [#/area] in /[HPF] Hospital Urine sediment by Microscopy high power field ID Date Data Source [id number] 03/21/2020 12:56:00 PM EDT [facility] Name Value Range Interpretation Code Description Data Supporting Source(s) Document(s ) Leukocyte 3+ [facility] esterase Hospital [Presence] in Urine by Test strip ID Date Data Source [id number] 03/21/2020 12:56:00 PM EDT [facility] Name Value Range Interpretation Description Data Sup porting Code Source(s) Document(s ) Nitrite NEGATIVE [facility] [Presence] Hospital in Urine by Test strip ID Date Data Source [id number] 03/21/2020 12:56:00 PM EDT [facility] Name Value Range Interpretation Description Data Sup porting Code Source(s) Document(s ) Erythrocytes 2+ [facility] [#/volume] in Hospital Urine by Test strip ID Date Data Source [id number] 03/21/2020 12:56:00 PM EDT [facility] Name Value Range Interpretation Code Description Data Diamante rce(s) Supporting Document(s ) Bilirubin. NEGATIVE [facility] total Hospital [Presence] in Urine by Test strip ID Date Data Source [id number] 03/21/2020 12:56:00 PM EDT [facility] Name Value Range Interpretation Description Data Sup porting Code Source(s) Document(s ) Urobilinogen 0.2 [facility] [Units/volume] mg/dL Hospital in Urine by Test strip ID Date Data Source [id number] 03/21/2020 12:56:00 PM EDT [facility] Name Value Range Interpretation Description Data Sup porting Code Source(s) Document(s ) Ketones NEGATIVE [facility] [Mass/volume Hospital ] in Urine by Test strip ID Date Data Source [id number] 03/21/2020 12:56:00 PM EDT [facility] Name Value Range Interpretation Description Data Sup porting Code Source(s) Document(s ) Glucose NEGATIVE [facility] [Mass/volume Hospital ] in Urine by Test strip ID Date Data Source [id number] 03/21/2020 12:56:00 PM EDT [facility] Name Value Range Interpretation Code Description Data Diamante rce(s) Supporting Document(s ) Protein 2+ [facility] [Presence] Hospital in Urine by Test strip ID Date Data Source [id number] 03/21/2020 12:56:00 PM EDT [facility] Name Value Range Interpretation Code Description Data Diamante rce(s) Supporting Document(s ) pH of Urine 6.5 [facility] by Test Hospital strip ID Date Data Source [id number] 03/21/2020 12:56:00 PM EDT [facility] Name Value Range Interpretation Code Description Data Supporting Source(s) Document(s ) Specific 1.016 [facility] gravity of Hospital Urine by Test strip ID Date Data Source [id number] 03/21/2020 12:56:00 PM EDT [facility] Name Value Range Interpretation Description Data Sup porting Code Source(s) Document(s ) Clarity in Urine CLOUDY [facility] by Refractometry Hospital automated ID Date Data Source [id number] 03/21/2020 12:56:00 PM [facility] Name Value Range Interpretation Code Description Data Diamante rce(s) Supporting Document(s ) Color of YELLOW [facility] Urine Hospital ID Date Data Source [id number] 03/21/2020 06:14:00 AM [facility] Name Value Range Interpretation Description Data Sup porting Code Source(s) Document(s ) Complement C4 33.2 [facility] [Mass/volume] mg/dL Hospital in Serum or Plasma ID Date Data Source [id number] 03/21/2020 06:14:00 AM [facility] Name Value Range Interpretation Description Data Sup porting Code Source(s) Document(s ) Complement C3 126 mg/dL [facility] [Mass/volume] Hospital in Serum or Plasma ID Date Data Source [id number] 03/21/2020 06:14:00 AM [facility] ADA RECOMMENDATIONS: NON-DIABETES: 4.0-6.0% CONTROLLED DIABETES: 6.0-8.0% UNCONTROLLED DIABETE S: UP TO 20%RECOMMENDED ADA RESULT FOR THERAPY: HEMOGLOBIN A1C RESULT LESS MELISSA N 7%.NOTE: METHOD CHANGE EFFECTIVE 05/07/15. Name Value Range Interpretation Description Data Sup porting Code Source(s) Document(s ) Hemoglobin 10.9 % [facility] A1c/Hemoglobin [facility] .total in Blood ID Date Data Source [id number] 03/20/2020 06:24:00 AM [facility] UNITS ARE IN ml/min/1.73m2.IF PATIENT IS -MOZAMBICAN, MULTIPLY REPORTED RESULT BY 1.21. Name Value Range Interpretation Description Data Sup porting Code Source(s) Document(s ) Glomerular 34 mL/min [facility] filtration Hospital rate/1.73 sq M.predicted [Volume Rate/Area] in Serum or Plasma by Creatinine-bas ed formula (MDRD) ID Date Data Source [id number] 03/19/2020 07:15:00 AM [facility] LOWEST MALE AND LOW FEMALE CORONARY HEAR T DISEASE RISK Name Value Range Interpretation Description Data Sup porting Code Source(s) Document(s ) Cholesterol 2.3 [facility] .total/Chol {ratio} Hospital esterol in HDL [Mass Ratio] in Serum or Plasma ID Date Data Source [id number] 03/19/2020 07:15:00 AM [facility] Name Value Range Interpretation Description Data Sup porting Code Source(s) Document(s ) Cholesterol in 10 mg/dL [facility] VLDL Hospital [Mass/volume] in Serum or Plasma by calculation ID Date Data Source [id number] 03/19/2020 07:15:00 AM [facility] Name Value Range Interpretation Description Data Sup porting Code Source(s) Document(s ) Cholesterol in 40 mg/dL [facility] LDL Hospital [Mass/volume] in Serum or Plasma by Direct assay ID Date Data Source [id number] 03/19/2020 07:15:00 AM [facility] Value Range Interpretation Description Data Sup porting Code Source(s) Document(s ) Cholesterol in 41 mg/dL [facility] HDL Hospital [Mass/volume] in Serum or Plasma ID Date Data Source [id number] 03/19/2020 07:15:00 AM [facility] Name Value Range Interpretation Description Data Sup porting Code Source(s) Document(s ) Triglyceride 53 mg/dL [facility] [Mass/volume] in Hospital Serum or Plasma ID Date Data Source [id number] 03/19/2020 07:15:00 AM [facility] Name Value Range Interpretation Description Data Sup porting Code Source(s) Document(s ) Cholesterol 96 mg/dL [facility] [Mass/volume] Hospital in Serum or Plasma ID Date Data Source [id number] 03/19/2020 07:15:00 AM [facility] Name Value Range Interpretation Description Data Sup porting Code Source(s) Document(s ) Phosphate 2.5 mg/dL [facility] [Mass/volume] Hospital in Serum or Plasma ID Date Data Source [id number] 03/19/2020 07:15:00 AM [facility] Name Value Range Interpretation Description Data Sup porting Code Source(s) Document(s ) Bilirubin.d 0.2 mg/dL [facility] [Mass/volum e] in Serum or Plasma ID Date Data Source [id number] 03/18/2020 12:21:00 AM [facility] Name Value Range Interpretation Description Data Sup porting Code Source(s) Document(s ) Bacteria No growth [facility] identified in [facility] Blood by Culture ID Date Data Source [id number] 03/17/2020 11:30:00 PM [facility] Name Value Range Interpretation Description Data Sup porting Code Source(s) Document(s ) Lactate 1.0 [facility] [Moles/volum mmol/L Hospital e] in Serum or Plasma ID Date Data Source [id number] 03/17/2020 07:47:00 PM [facility] Name Value Range Interpretation Description Data Sup porting Code Source(s) Document(s ) Bacteria [employer] [facility] identified in [facility] Urine by Hospital Culture ID Date Data Source [id number] 03/17/2020 07:47:00 PM [facility] TEST PERFORMED BY [employer] ULTRA SENSITIVE [facility] CHEMILUMINESCENCE METHOD. Name Value Range Interpretation Description Data Sup porting Code Source(s) Document(s ) Troponin 0.06 [facility] I.cardiac ng/mL Hospital [Mass/volume ] in Serum or Plasma ID Date Data Source [id number] 03/17/2020 07:47:00 PM [facility] Name Value Range Interpretation Code Description Data Diamante rce(s) Supporting Document(s ) Lipase 11 U/L [facility] [Enzymatic Hospital activity/vo lume] in Serum or Plasma ID Date Data Source [id number] 03/17/2020 07:47:00 PM [facility] Name Value Range Interpretation Code Description Data Supporting Source(s) Document(s ) Creatine 72 U/L [facility] kinase Hospital [Enzymatic activity/volu me] in Serum or Plasma ID Date Data Source [id number] 03/17/2020 07:47:00 PM [facility] Name Value Range Interpretation Description Data Sup porting Code Source(s) Document(s ) Urate crystals 2+ [facility] [Presence] in Urine sediment by Light microscopy ID Date Data Source [id number] 03/17/2020 07:47:00 PM [facility] Name Value Range Interpretation Description Data Sup porting Code Source(s) Document(s ) Leukocytes >100 [facility] [#/area] in /[HPF] Hospital Urine sediment by Microscopy high power field ID Date Data Source [id number] 03/17/2020 07:47:00 PM [facility] Name Value Range Interpretation Description Data Sup porting Code Source(s) Document(s ) URINE NEGATIVE [facility] ID Date Data Source [id number] 03/17/2020 07:47:00 PM [facility] THERAPEUTIC RANGES:UNFRACTIONATED HEPARI N THERAPY: 60-90 SECONDSARGATROBAN THERAPY: 49-99 SECONDS Name Value Range Interpretation Description Data Sup porting Code Source(s) Document(s ) aPTT in 31.3 s [facility] Platelet poor [facility] plasma by Coagulation assay ID Date Data Source [id number] 03/17/2020 07:47:00 PM EDT [facility] THERAPEUTIC RANGE FOR STANDARD ORALANTIC OAGULANT THERAPY: 2.0-3.0THERAPEUTIC RANGE FOR HIGH DOSE ORALANTICOAGULANT THERAPY (MECHANICAL HEARTVALVE REPLACEMENT): 2.5-3.5 Name Value Range Interpretation Description Data Sup porting Code Source(s) Document(s ) INR in Platelet 1.4 [facility] poor plasma by Hospital Coagulation assay ID Date Data Source [id number] 03/17/2020 07:47:00 PM EDT [facility] HEMOLYZED SPECIMEN- HEMOLYSIS CAUSES AUBREE RTENING OF PT AND APTT RESULTS Name Value Range Interpretation Description Data Sup porting Code Source(s) Document(s ) PT panel - 16.7 s [facility] Platelet poor [facility] plasma by Coagulation assay ID Date Data Source [id number] 03/17/2020 07:47:00 PM EDT [facility] NEUT VACUOLES PRESENT Name Value Range Interpretation Code Description Data Supporting Source(s) Document(s ) WBC COMMENT PRESENT [facility] ID Date Data Source [id number] 03/17/2020 07:47:00 PM EDT [facility] Name Value Range Interpretation Code Description Data Diamante rce(s) Supporting Document(s ) RBC COMMENT NORMAL [facility] ID Date Data Source [id number] 03/03/2020 03:46:00 AM EDT [facility] Name Value Range Interpretation Code Description Data Diamante rce(s) Supporting Document(s ) SARS-CoV-2 [facility] , RNA This lab was ordered by MARKIE [facility] and reported by [facility]. ID Date Data Source [id number] 12/02/2019 02:00:00 PM EST [facility] ([facility]) Name Value Range Interpretation Description Data Sup porting Code Source(s) Document(s ) XR CHEST .ACCESSION <td [facility] AP 1 NUMBER: ID="Observation (Hassan VIEW [id number] -[id number]- [place] ([id number] NOTE: CHEST 1 [id number]- for Nurs ing 4) ViewCLINICAL [id number]">( And INDICATION: [id number]) XR Rehabilitat R50.9 Fever, CHEST AP 1 VIEW ion) unsp R50.9 ([id number])</td> Fever, <td unspecified R05 ID="Observation Cough.PATIENT -Value-[id number] NAME: LILLI, -[id number] CLOTILDE.FINDING -[id number]"> S: The cardiac .ACCESSION silhouette NUMBER: measures within [id number] normal limits. NOTE: CHEST 1 The hilar and ViewCLINICAL mediastinal INDICATION: structures R50.9 Fever, appear unsp R50.9 unremarkable. Fever, Right greater unspecified R05 than left Cough.PATIENT perihilar NAME: LILLIinfiltrates. MABRY.FINDING Right upper S: The cardiac extremity PICC silhouette tip in region measures within SVC. No obvious normal limits. effusion. The The hilar and osseous mediastinal structures structures appear grossly appear intact..IMPRESS unremarkable. ION: Bilateral Right greater infiltrates...E than left lectronically perihilar SignedEsser infiltrates. Zachariah Right upper extremity PICC tip in region SVC. No obvious effusion. The osseous structures appear grossly intact..IMPRESS ION: Bilateral infiltrates...E lectronically SignedEsser Zachariah</td><td ID="Observation -Unit-[id number]">< /td><td ID="Observation -RefRange-[id number]"></td><td ID="Observation -Abnormal-[id number]"></td><td ID="Observation -Status-[id number]" >Final</td> Procedure Social History Code Duration Value Status Description Data Source(s ) Smoking 03/21/2020 Tobacco smoking completed Tobacco smoking [facility] 05:58:00 AM EDT consumption consumption [facility]ospita [facility] unknown (finding) unknown (finding) Vital Signs ID Date Data Source UNK Name Value Range Interpretation Code Description Data Source(s) Diastolic blood 74 mm[Hg] 74 mm[Hg] [facility] Systolic blood 139 mm[Hg] 139 mm[Hg] [facility] ns pressure Hospital Respiratory rate 18 /min 18 /min [facility] Heart rate 77 /min 77 /min [facility] Body temperature 36.54882 36.85903 [facility] Body temperature 98.1 [degF] 98.1 [degF] [facility] Body mass index 29.0 kg/m2 29.0 kg/m2 [facility] ins (BMI) [Ratio] Hospital Body weight 170.35 170.35 [lb_av] [facility] [lb_av] [facility]
[2020-06-29 14:53] LABS: BASO % 0.9 % (0-2.0); EOS % 1.3 % (0-4.5); HEMATOCRIT 28.3 % (32.4-45.2); HEMOGLOBIN 9.3 GM/dL (10.7-15.3); LYMPH % 7.5 % (8-40); MCH 28.3 pg (25.7-33.7); MCHC 32.7 g/dl (32.0-36.0); MEAN CELL VOLUME 86.6 fl (80-96); MEAN PLT VOLUME 9.1 fl (7.5-11.1); MONO % 5.6 % (3.8-10.2); NEUT % 84.7 % (42.8-82.8); PLATELET COUNT 267 K/MM3 (134-434); RBC 3.27 M/mm3 (3.60-5.2); RDW 18.5 % (11.6-15.6); WHITE BLOOD COUNT 7.9 K/mm3 (4.0-10.0)
[2020-06-29 14:59] LABS: INR 1.18 (0.83-1.09); PROTHROMBIN TIME (PATIENT) 13.9 SEC (9.7-13.0)
[2020-06-29 15:02] LABS: ACTIVATED PTT 33.5 SECONDS (25.2-36.5)
[2020-06-29 15:28] LABS: ALBUMIN 2.2 g/dl (3.4-5.0); BILIRUBIN,TOTAL 0.2 mg/dL (0.2-1); BLOOD UREA NITROGEN 25.1 mg/dL (7-18); CALCIUM 8.8 mg/dL (8.5-10.1); CREATININE 1.2 mg/dL (0.55-1.3); POTASSIUM 4.7 mmol/L (3.5-5.1)
[2020-06-29] MEDS ORDERED: SODIUM CHLORIDE 1,000 ML IV SCH ×2 (17:30)
--- NOTE | 2020-06-29 17:36 | HP ---
CHIEF COMPLAINT: presents from rehab facility with [facility] PCP:Dr. 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 She is a poor historian. As reported in chart by daughter patient's mental status is currently at her baseline. ER course notable for: ( postive stool occult hgb 9.3 hct 28[address] scan of abdomen with mild right sided hydronephrosis Recent Travel: denies PAST MEDICAL HISTORY: diabetes mellitus iron deficiency anemia CHF PAST SURGICAL HISTORY: left aka Social History: Smoking:unable to obtain Alcohol:unable to obtain Drugs: unable to obtain Allergies No Known Allergies Allergy (Verified 06/29/20 12:32) HOME MEDICATIONS: Home Medications Medication Instructions Recorded Aspirin 81 mg PO DAILY 05/11/20 Acetaminophen Oral Solution 650 mg PO Q4H PRN soln.oral 06/09/20 [Tylenol Oral Solution -] Amlodipine Besylate [Norvasc -] 10 mg PO DAILY tablet 06/09/20 Atorvastatin Ca [Lipitor] 20 mg PO HS tablet 06/09/20 Famotidine [Pepcid -] 20 mg PO DAILY tablet 06/09/20 Ferrous Sulfate [Feosol] 325 mg PO BID ud 06/09/20 Heparin - 5,000 unit SQ BID vial 06/09/20 Insulin Sliding Scale [Novolog 1 vial SQ TID units 06/09/20 Vial Sliding Scale -] Losartan Potassium [Cozaar -] 100 mg PO DAILY tablet 06/09/20 Metoprolol Tartrate [Lopressor -] 25 mg PO BID tablet 06/09/20 Bisacodyl [Dulcolax] 10 mg RC DAILY 06/29/20 Collagenase Clostridium Hist. 1 applic TP BID 06/29/20 [Santyl -] Furosemide [Lasix] 20 mg PO DAILY 06/29/20 Insulin Detemir [Levemir Flextouch] 6 unit SQ AM 06/29/20 Mirtazapine 7.5 mg PO DAILY 06/29/20 Multivit with Minerals/Lutein [Pub 1 each PO DAILY 06/29/20 Senior Vitamin Tablet] Polyethylene Glycol 3350 [Miralax 17 gm PO DAILY 06/29/20 (For Daily Use) -] Senna [place] Extract [Senna] 176 mg PO DAILY 06/29/20 Vit C/Ascorb Sod/Multivit-Min 500 mg PO DAILY 06/29/20 [Emergen-C 500 mg Chewable Tab] Zinc 50 mg PO BID 06/29/20 REVIEW OF SYSTEMS unable to obtain accurate ROS due to patient mental status CONSTITUTIONAL: Absent: fever, chills, diaphoresis, generalized weakness, malaise, loss of appetite, weight change HEENT: Absent: rhinorrhea, nasal congestion, throat pain, throat swelling, difficulty swallowing, mouth swelling, ear pain, eye pain, visual changes CARDIOVASCULAR: Absent: chest pain, syncope, palpitations, irregular heart rate, lightheadedness, peripheral edema RESPIRATORY: Absent: cough, shortness of breath, dyspnea with exertion, orthopnea, wheezing, stridor, hemoptysis GASTROINTESTINAL: Absent: abdominal pain, abdominal distension, nausea, vomiting, diarrhea, constipation, PRBBR GENITOURINARY: Absent: dysuria, frequency, urgency, hesitancy, hematuria, flank pain, genital pain MUSCULOSKELETAL: Absent: myalgia, arthralgia, joint swelling, back pain, neck pain SKIN: Absent: rash, itching, pallor HEMATOLOGIC/IMMUNOLOGIC: Absent: easy bleeding, easy bruising, lymphadenopathy, frequent infections ENDOCRINE: Absent: unexplained weight gain, unexplained weight loss, heat intolerance, cold intolerance NEUROLOGIC: Absent: headache, focal weakness or paresthesias, dizziness, unsteady gait, seizure, mental status changes, bladder or bowel incontinence PSYCHIATRIC: Absent: anxiety, depression, suicidal or homicidal ideation, hallucinations. PHYSICAL EXAMINATION Vital Signs - 24 hr 06/29/20 06/29/20 12:17 12:30 Temperature 97.8 F Pulse Rate 16 L Respiratory 18 Rate Blood Pressure 170/95 O2 Sat by Pulse 98 98 Oximetry (%) General patient with active rectal bleeding Vital signs reviewed blood pressure noted Neuro awake does not answer questions appropriately or follow simple commands disoriented Lungs nonlabored breathing effort no use of accessory muscles Heart s1s2 rate regular Abdomen nontender nondistended Extremities left BKA, right lower extremity with skin changes and right diabetic foot ulcer warm on palpation Skin nail beds and lips pink Laboratory Results - last 24 hr 06/29/20 06/29/20 06/29/20 12:53 13:00 13:00 WBC 7.9 RBC 3.27 L Hgb 9.3 L Hct 28.3 L MCV 86.6 MCH 28.3 MCHC 32.7 RDW 18.5 H Plt Count 267 MPV 9.1 Absolute Neuts (auto) 6.7 Neutrophils % 84.7 H Lymphocytes % 7.5 L Monocytes % 5.6 Eosinophils % 1.3 Basophils % 0.9 Nucleated RBC % 0 PT with INR 13.90 H INR 1.18 H PTT (Actin FS) 33.5 Sodium Potassium Chloride Carbon Dioxide Anion Gap BUN Creatinine Est GFR (CKD-EPI)AfAm Est GFR (CKD-EPI)NonAf Random Glucose Lactic Acid Calcium Total Bilirubin AST ALT Alkaline Phosphatase Total Protein Albumin Stool Occult Blood Positive Blood Type Antibody Screen 06/29/20 06/29/20 06/29/20 13:00 13:00 13:00 WBC RBC Hgb Hct MCV MCH MCHC RDW Plt Count MPV Absolute Neuts (auto) Neutrophils % Lymphocytes % Monocytes % Eosinophils % Basophils % Nucleated RBC % PT with INR INR PTT (Actin FS) Sodium 152 H Potassium 4.7 Chloride 118 H Carbon Dioxide 32 Anion Gap 2 L BUN 25.1 H Creatinine 1.2 Est GFR (CKD-EPI)AfAm 53.03 Est GFR (CKD-EPI)NonAf 45.75 Random Glucose 300 H Lactic Acid 1.2 Calcium 8.8 Total Bilirubin 0.2 AST 21 ALT 18 Alkaline Phosphatase 189 H Total Protein 8.0 Albumin 2.2 L Stool Occult Blood Blood Type AB POSITIVE Antibody Screen Negative ASSESSMENT/PLAN: 70 yr old female with a past medical history of low-normal systolic /diastolic CHF, ?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 She was found to have anemia (chronic) and hypernatremia. She is being admitted for active rectal bleeding and further medical management. 1. rectal bleeding (active) R/O GI Bleed hgb 9.3/hct 28.3, repeat CBC hgb 8.1/hct 25.2, pending repeat CBC at 1am, likely will need to be transfused stool occult positive CT scan of abdomen and pelvis with mild right sided hydronephrosis no evidence of hypotension WBC and lactic acid normal type and screen done GI - Dr. Conner consulted hold asa and anticoagulation in this setting NPO in anticipation for colonoscopy IVF NS @ 75cc/hr monitor for signs of fluid overload 2. anemia repeat CBC pending for 1am c/w ferrous sulfate 3. hypernatremia likely in the setting of dehydration bun 25.1/ creatinine 1.2 c/w IVF NS @ 75 cc/hr monitor for signs of fluid overload repeat BMP in am Nephrology consulted- Dr. Jason in this setting and for mild right sided hydronephrosis 4. CVA c/w statin therapy hold asa in setting of active rectal bleed 5. diabetes mellitus bgm before meals and at bedtime insulin as per sliding scale check hgb a1c c/w statin, hold asa 6. htn uncontrolled c/w amlodipine, losartan and metoprolol tartrate 7. chronic systolic versus diastolic congestive heart failure no acute exacerbation monitor for signs of fluid overload as receiving IVF in setting of active rectal bleeding will hold lasix in setting hypernatremia and getting IVF FEN IVF NS @ 75 cc/hr BMP daily and replete electrolytes as needed NPO DVT Prophylaxis avoid anticoagulation in the setting of rectal bleeding Family Medical History Family History: Unable to Obtain Visit type - Medication Review Med list reviewed for High Risk Meds patients 65 and older: Yes - Emergency Visit Emergency Visit: Yes ED Registration Date: 06/29/20 Care time: The patient presented to the Emergency Department on the above date and was hospitalized for further evaluation of their emergent condition. - New Patient This patient is new to me today: Yes Date on this admission: 06/29/20 - Critical Care Critical Care patient: No
[2020-06-29 19:03] LABS: HEMATOCRIT 25.2 % (32.4-45.2); HEMOGLOBIN 8.1 GM/dL (10.7-15.3); MCH 27.7 pg (25.7-33.7); MCHC 32.1 g/dl (32.0-36.0); MEAN CELL VOLUME 86.4 fl (80-96); MEAN PLT VOLUME 8.9 fl (7.5-11.1); PLATELET COUNT 272 K/MM3 (134-434); RBC 2.92 M/mm3 (3.60-5.2); RDW 18.7 % (11.6-15.6); WHITE BLOOD COUNT 9.1 K/mm3 (4.0-10.0)
[2020-06-29] MEDS ORDERED: MIRTAZAPINE 15 MG TABLET (FP) PO SCH (22:00)
[2020-06-29] MEDS ORDERED: PATIENT'S OWN MEDICATION (NON-FORMULARY) (Zinc [Zinc] 50 MG) PO SCH (22:00)
[2020-06-29] MEDS ORDERED: ATORVASTATIN CA 20 MG TABLET (FP) PO SCH (22:00)
[2020-06-29] MEDS ORDERED: FERROUS SO4 325 MG TABLET (FP) ONE (22:08)
[2020-06-29] MEDS ORDERED: ZINC SULFATE 220 MG CAPSULE (FP) ONE (22:08)
[2020-06-29] MEDS ORDERED: ATORVASTATIN CA 20 MG TABLET (FP) ONE (22:08)
[2020-06-29] MEDS ORDERED: METOPROLOL TARTRATE 25 MG TABLET (FP) ONE (22:08)
[2020-06-29] MEDS ORDERED: MIRTAZAPINE 15 MG TABLET (FP) ONE (22:09)
[2020-06-29] MEDS: ZINC SULFATE 220 MG CAPSULE (FP) PO SCH (22:10)
[2020-06-29] MEDS: METOPROLOL TARTRATE 25 MG TABLET (FP) PO SCH (22:10)
[2020-06-29] MEDS: FERROUS SO4 325 MG TABLET (FP) PO SCH (22:10)
[2020-06-29 22:38] LABS: EPI CELLS >36 /uL (0-25.1); HYALINE CASTS 1 /uL (0-3.1); URINE APPEARANCE TURBID; URINE BACTERIA >9,000 /uL (0-1359); URINE BILIRUBIN NEGATIVE (NEGATIVE); URINE COLOR YELLOW; URINE GLUCOSE (UA) NEGATIVE (NEGATIVE); URINE KETONE NEGATIVE (NEGATIVE); URINE LEUK ESTERASE 3+ (NEGATIVE); URINE NITRITE NEGATIVE (NEGATIVE); URINE PROTEIN 2+ (NEGATIVE); URINE UROBILINOGEN 0.2 mg/dL (0.2-1.0); URINE WBC 12073 /uL (0-25.8)
[2020-06-29 23:10] LABS: URINE RBC 134.1 /uL (0-23.9); YEAST NEGATIVE (NEGATIVE)
[2020-06-30 02:17] LABS: HEMATOCRIT 21.7 % (32.4-45.2); MCH 28.1 pg (25.7-33.7); MCHC 32.4 g/dl (32.0-36.0); MEAN CELL VOLUME 86.6 fl (80-96); MEAN PLT VOLUME 8.8 fl (7.5-11.1); PLATELET COUNT 246 K/MM3 (134-434); RDW 18.5 % (11.6-15.6); WHITE BLOOD COUNT 11.1 K/mm3 (4.0-10.0)
[2020-06-30] MEDS: FERROUS SO4 325 MG TABLET (FP) PO SCH (09:38)
[2020-06-30] MEDS: METOPROLOL TARTRATE 25 MG TABLET (FP) PO SCH (09:38)
[2020-06-30] MEDS: ZINC SULFATE 220 MG CAPSULE (FP) PO SCH (09:39)
[2020-06-30] MEDS ORDERED: LOSARTAN POTASSIUM 50 MG TABLET PO SCH (10:00)
[2020-06-30] MEDS ORDERED: ASCORBIC ACID 500 MG TABLET (FP) PO SCH (10:00)
[2020-06-30] MEDS ORDERED: FAMOTIDINE 20 MG TABLET PO SCH (10:00)
[2020-06-30] MEDS ORDERED: SENNOSIDES 8.6MG TABLET (FP) PO SCH (10:00)
[2020-06-30] MEDS ORDERED: amLODIPine BESYLATE 10 MG TABLET (FP) PO SCH (10:00)
[2020-06-30] MEDS ORDERED: BISACODYL 10 MG SUPP.RECT RC SCH (10:00)
[2020-06-30] MEDS ORDERED: MULTIVITAMINS (DAILY MVI) TABLET (FP) PO SCH (10:00)
[2020-06-30] MEDS ORDERED: MULTIVITAMINS THER W-MINERALS COMBO TABLET (FP) PO SCH (10:00)
--- NOTE | 2020-06-30 10:03 | EKG ---
Test Reason : Blood Pressure : / mmHG Vent. Rate : 081 BPM Atrial Rate : 081 BPM P-R Int : 142 ms QRS Dur : 072 ms QT Int : 394 ms P-R-T Axes : 050 019 055 degrees QTc Int : 457 ms SINUS RHYTHM WITH PREMATURE ATRIAL COMPLEXES OTHERWISE NORMAL ECG WHEN COMPARED WITH ECG OF 27-MAY-2020 09:51, PREMATURE ATRIAL COMPLEXES ARE NOW PRESENT Confirmed by Jw Vegas ([id number]) on 06/30/2020 10:02:52 AM Referred By: Confirmed By:Jw Vegas
--- NOTE | 2020-06-30 10:14 | PN ---
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, Physician Chief Complaint: GI bleed Anemia History of Present Illness: 70 year old F came in to [facility] ER for rectal bleeding noted at Currently pt in NAD, knows her name other callahan confused As per nursing still have hematochezia Received 1 unit of PRBC today, 2nd ordered - Current Medication List Current Medications: Active Medications Amlodipine Besylate (Norvasc -) 10 mg PO DAILY [facility] Last Admin: 06/30/20 09:39 Dose: Not Given Documented by: Ascorbic Acid (Vitamin C -) 500 mg PO DAILY [facility] Last Admin: 06/30/20 09:39 Dose: Not Given Documented by: Atorvastatin Calcium (Lipitor -) 20 mg PO HS [facility] Last Admin: 06/29/20 22:10 Dose: 20 mg Documented by: Bisacodyl (Dulcolax Suppository -) 10 mg RC DAILY [facility] Last Admin: 06/30/20 09:39 Dose: Not Given Documented by: Famotidine (Pepcid -) 20 mg PO DAILY [facility] Last Admin: 06/30/20 09:39 Dose: Not Given Documented by: Ferrous Sulfate (Feosol -) 325 mg PO BID [facility] Last Admin: 06/30/20 09:38 Dose: Not Given Documented by: Sodium Chloride (Normal Saline -) 1,000 mls @ 100 mls/hr IV ASDIR [facility] Last Admin: 06/29/20 17:48 Dose: 100 mls/hr Documented by: Losartan Potassium (Cozaar -) 100 mg PO DAILY [facility] Last Admin: 06/30/20 09:38 Dose: Not Given Documented by: Metoprolol Tartrate (Lopressor -) 25 mg PO BID [facility] Last Admin: 06/30/20 09:38 Dose: Not Given Documented by: Mirtazapine (Remeron -) 7.5 mg PO HS [facility] Last Admin: 06/29/20 22:10 Dose: 7.5 mg Documented by: Multivitamins/Minerals (Theragran-M) 1 each PO DAILY [facility] Last Admin: 06/30/20 09:39 Dose: Not Given Documented by: Multivitamins/Minerals/Vitamin C (Tab-A-Vit -) 1 tab PO DAILY [facility] Senna (Senna -) 2 tab PO DAILY [facility] Last Admin: 06/30/20 09:39 Dose: Not Given Documented by: Zinc Sulfate (Orazinc -) 220 mg PO BID [facility] Last Admin: 06/30/20 09:39 Dose: Not Given Documented by: - Objective Vital Signs: Vital Signs Temperature 97.5 F L 06/30/20 06:00 Pulse Rate 81 06/30/20 06:00 Respiratory Rate 18 06/30/20 06:00 Blood Pressure 132/67 06/30/20 06:00 O2 Sat by Pulse Oximetry (%) 93 L 06/30/20 06:00 Constitutional: Yes: Well Nourished, No Distress, Calm Cardiovascular: Yes: Regular Rate and Rhythm Respiratory: Yes: Regular, CTA Bilaterally Gastrointestinal: Yes: Normal Bowel Sounds, Soft Genitourinary: Yes: Lynn Present Musculoskeletal: Yes: Muscle Weakness Extremities: Yes: WNL Edema: No Peripheral Pulses WNL: Yes Neurological: Yes: Alert, Confusion Psychiatric: Yes: Alert Labs: CBC, BMP 06/30/20 01:30 06/29/20 13:00 INR, PTT INR 1.18 (0.83-1.09) H 06/29/20 13:00 Problem List - Problems (1) Rectal bleed Assessment/Plan: -GI consult -Received 1 U of PRBC, transfuse another unit now -Monitor H/H closely -NPO -IVF D5 1/2 NS + KCl 20 meq @ 75 cc/hr -Hold all po meds as well -PPI BID -CTAP 06/29/20: mild right hydronephrosis, markedly distended Urinary bladder, fecal retention -Transfuse as needed to keep Hg>8.0 -Repeat labs this afternoon around 2 PM -CTA abd/pelvis STAT Problems reviewed: Yes Code(s): K62.5 - HEMORRHAGE OF ANUS AND RECTUM (2) Anemia Problems reviewed: Yes Code(s): D64.9 - ANEMIA, UNSPECIFIED (3) Hydronephrosis, right Assessment/Plan: -Lynn inserted for urinary retention -Urology consult Problems reviewed: Yes Code(s): N13.30 - UNSPECIFIED HYDRONEPHROSIS (4) Hypernatremia Assessment/Plan: -Nephrology consult -IVF -Monitor trend -Repeat CMP this after at 2pm Problems reviewed: Yes Code(s): E87.0 - HYPEROSMOLALITY AND HYPERNATREMIA Assessment/Plan See problem list Check COVID 19 PCR
[2020-06-30] MEDS ORDERED: POLYETHYLENE GLYCOL 3350 119 GM BTL PO SCH (10:15)
--- NOTE | 2020-06-30 11:36 | PN ---
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 (short form) - Note 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: GI CONSULT DICTATED NPO / IVF SERIAL CBC Q8 HOLD ASA / A/C PPI CTA COVID TEST CARDIOLOGY EVALUATION TIMING OF ENDOSCOPIC PROCEDURES IF NEEDED PENDING IMAGING RESULTS. WILL ALSO NEED A BOWEL REGIMEN AFTER RESULTS ARE AVAILABLE FROM CTA
[2020-06-30] MEDS: PANTOPRAZOLE SODIUM 40 MG VIAL IVPUSH SCH ×2 (12:03→21:52)
--- NOTE | 2020-06-30 13:31 | CON.NEP ---
Consult Consult Specialty:: Nephrology Referred by:: Dr. Yuan Reason for Consultation:: CKD - History of Present Illness Chief Complaint: GI bleed History of Present Illness: This is a 70 year old woman with history of CKD, CHF, suspected amyloidosis, DM, diabetic foot ulcers, chronic osteomyliitis, diabetic ne uropathy who presented with bright red blood per rectum and to have acute anemia and hypernatremia. Seen and examined at the bedside. Awake and alert. Offers no acute complaints. Denies any chest pain, shortness of breath, fever, chills, N/V/D. No abdominal pain. Making urine. No leg swelling. No flank pain. No dysuria or frequency. - History Source History Provided By: Patient Limitations to Obtaining History: No Limitations - Past Medical History Cardio/Vascular: Yes: CHF, HTN, Hyperlipdemia ...: No Endocrine: Yes: Diabetes Mellitus (DM II) - Alcohol/Substance Use Hx Alcohol Use: No History of Substance Use: reports: None - Smoking History Smoking history: Never smoked Have you smoked in the past 12 months: No - Social History ADL: Support Services History of Recent Travel: No ([place]) Home Medications - Allergies Allergies/Adverse Reactions: Allergies Allergy/AdvReac Type Severity Reaction Status Date / Time No Known Allergies Allergy Verified 06/29/20 12:32 - Home Medications Home Medications: Ambulatory Orders Aspirin 81 mg PO DAILY 05/11/20 Acetaminophen Oral Solution [Tylenol Oral Solution -] 650 mg PO Q4H PRN soln.oral 06/09/20 Amlodipine Besylate [Norvasc -] 10 mg PO DAILY tablet 06/09/20 Atorvastatin Ca [Lipitor] 20 mg PO HS tablet 06/09/20 Famotidine [Pepcid -] 20 mg PO DAILY tablet 06/09/20 Ferrous Sulfate [Feosol] 325 mg PO BID ud 06/09/20 Heparin - 5,000 unit SQ BID vial 06/09/20 Insulin Sliding Scale [Novolog Vial Sliding Scale -] 1 vial SQ TID units 06/09/20 Losartan Potassium [Cozaar -] 100 mg PO DAILY tablet 06/09/20 Metoprolol Tartrate [Lopressor -] 25 mg PO BID tablet 06/09/20 Bisacodyl [Dulcolax] 10 mg RC DAILY 06/29/20 Collagenase Clostridium Hist. [Santyl -] 1 applic TP BID 06/29/20 Furosemide [Lasix] 20 mg PO DAILY 06/29/20 Insulin Detemir [Levemir Flextouch] 6 unit SQ AM 06/29/20 Mirtazapine 7.5 mg PO DAILY 06/29/20 Multivit with Minerals/Lutein [Pub Senior Vitamin Tablet] 1 each PO DAILY 06/29/20 Polyethylene Glycol 3350 [Miralax (For Daily Use) -] 17 gm PO DAILY 06/29/20 Senna [place] Extract [Senna] 176 mg PO DAILY 06/29/20 Vit C/Ascorb Sod/Multivit-Min [Emergen-C 500 mg Chewable Tab] 500 mg PO DAILY 06/29/20 Zinc 50 mg PO BID 06/29/20 Family Medical History Family History: Unremarkable Review of Systems - Review of Systems Constitutional: reports: No Symptoms Eyes: reports: No Symptoms HENT: reports: No Symptoms Neck: reports: No Symptoms Cardiovascular: reports: No Symptoms Respiratory: reports: No Symptoms Gastrointestinal: reports: No Symptoms Genitourinary: reports: No Symptoms Musculoskeletal: reports: No Symptoms Integumentary: reports: No Symptoms Neurological: reports: No Symptoms Endocrine: reports: No Symptoms Nephrology Consult - Height Height: 5 ft 5 in - Weight Weight: 107.501 kg - BMI Body Mass Index (BMI): 39.4 - Lab Results CBC,BMP: CBC, BMP 06/30/20 01:30 06/29/20 13:00 Anion Gap: Anion Gap Anion Gap 2 MMOL/L (8-16) L 06/29/20 13:00 - Imaging Chest X-ray: Report Reviewed - Physical Examination Vital Signs: Vital Signs Temperature 97.5 F L 06/30/20 06:00 Pulse Rate 81 06/30/20 06:00 Respiratory Rate 18 06/30/20 06:00 Blood Pressure 132/67 06/30/20 06:00 O2 Sat by Pulse Oximetry (%) 93 L 06/30/20 06:00 Constitutional: Yes: No Distress, Calm Eyes: Yes: Conjunctiva Clear HENT: Yes: Atraumatic Neck: Yes: Supple Cardiovascular: Yes: Regular Rate and Rhythm. No: Murmur, Rub Respiratory: Yes: Regular, Diminished. No: Rales, Rhonchi, SOB Gastrointestinal: Yes: Soft. No: Tenderness Extremities: Yes: Amputation. No: Cold, Cool, Cyanosis Edema: No Neurological: Yes: Alert Assessment/Plan 70 year old woman with history of CKD, CHF, suspected amyloidosis, DM, diabetic foot ulcers, chronic osteomyliitis, diabetic neuropathy who presented with bright red blood per rectum and to have acute anemia and hypernatremia. 1. CKD stage 3a 2. Hypernatremia (water deficit 4.6L) 3. Acute GI bleed/Anemia 4. Hx of HF with CXR consistent wit congestion 5. DM Renal function is stable at this time. There is no overt hyperkalemia or acidosis. No indication for renal replacement therapy. Pt is planned for contrast exposure with CTA, Risk of DAMON is 26% and risk of immediate need for dialysis is 1.6% based on DAMON risk calculator. Given Heart failure would not start isotonic saline. Trend renal function closely following contrast. Start D5W at 60cc per hour for hypernatremia. Continue Lasix 40mg daily for now for volume management. Trend H/H GI following, possible endoscopy/colonoscopy pending CTA results Thank you Will follow Joaquín Berry DO
[2020-06-30] MEDS ORDERED: FUROSEMIDE 40 MG TABLET (FP) PO SCH (14:15)
[2020-06-30] MEDS ORDERED: FUROSEMIDE 40 MG/4 ML INJECTABLE VIAL IVPUSH ONE (15:45)
--- NOTE | 2020-06-30 16:12 | CONS ---
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 She is a poor historian, does not offer any additional information. As per the nurse, she has not had any further episodes of rectal bleeding or hematochezia during her shift this morning. There is no report of any colonoscopy or upper endoscopy in our chart. No report of nausea, vomiting, hematemesis or melena, constipation or diarrhea. PAST MEDICAL & SURGICAL HISTORY: As listed in the HPI with the addition of a left AKA. SOCIAL HISTORY: As per the chart, does not smoke, drink or use drugs. ALLERGIES: No known drug allergies. FAMILY HISTORY: Unable to obtain. HOME MEDICATIONS: Reviewed and include aspirin, Tylenol, Norvasc, Lipitor, Pepcid, iron, Cozaar, Lopressor, Lasix, Levemir, MiraLAX and senna. REVIEW OF SYSTEMS: Limited secondary to her underlying mental status and recent CVA. PHYSICAL EXAMINATION: Vital Signs: Temperature 97, pulse 81, blood pressure 130/67, pulse oximetry 93% on room air, respiratory rate 12. General: No acute distress. HEENT: Anicteric sclerae. Cardiovascular: S1, S2. Regular rate and rhythm. Lungs: Bilaterally clear anteriorly with auscultation. Abdomen: Soft and nontender. Extremities: No edema. LABORATORIES: White blood cell count 11. Hemoglobin on admission was 9.3; presently it is 7. Hematocrit 21, platelet count 246. INR 1.1. Sodium 152, potassium 4.7, BUN 25 and creatinine 1.2, glucose 300, lactic acid 1.2, AST 21, ALT 18, total bilirubin 0.2. Urine 3+ leukocyte esterase. Stool for occult blood was positive. COVID testing was not done on this patient yet. She had a CT scan of the abdomen and pelvis without contrast which revealed limited exam, mild right hydronephrosis and proximal hydroureter. Distal ureter cannot be identified. Markedly distended urinary bladder, fecal retention, large amount of retained fecal material within the colon and rectum with edematous changes throughout the abdomen and pelvis. Of note, this is again without contrast CT scan. IMPRESSION: Hematochezia most likely secondary to a lower gastrointestinal source. There is no sign of an overt GI bleed at this time. She is hemodynamically stable. Included in the differential diagnosis is a component of colitis, a solitary rectal ulcer, polyps or adenocarcinoma. Upper GI source will also need to be excluded. RECOMMENDATION: N.p.o., IV fluids, serial hemoglobin and hematocrit q.8 hour. Recommend CTA. She would benefit from a diagnostic upper endoscopy and colonoscopy which will be done later in the week. If she were to develop signs of an overt GI bleed, this can be done at a sooner time. Hold aspirin and anticoagulation. Correct electrolyte abnormalities. Plan of care discussed with the nurse practitioner. Will follow. She would also benefit from cardiac risk stratification prior to any procedures. Further recommendations pending imaging results. ANTONIA RICHARDS DO LUFMRiver/[id number]
[2020-06-30] MEDS: D5-1/2NS+20 MEQ KCL - 20 MEQ/1,000 ML INFUS.BAG IV SCH (18:41)
[2020-06-30] MEDS: DEXTROSE 5%-WATER - 1,000 ML IV SCH (18:42)
[2020-06-30 19:22] LABS: HEMATOCRIT 27.4 % (32.4-45.2); MCH 28.6 pg (25.7-33.7); MCHC 32.9 g/dl (32.0-36.0); MEAN CELL VOLUME 86.9 fl (80-96); MEAN PLT VOLUME 8.6 fl (7.5-11.1); PLATELET COUNT 217 K/MM3 (134-434); RBC 3.15 M/mm3 (3.60-5.2); RDW 16.5 % (11.6-15.6); WHITE BLOOD COUNT 12.3 K/mm3 (4.0-10.0)
[2020-06-30 19:53] LABS: BLOOD UREA NITROGEN 18.2 mg/dL (7-18); CALCIUM 8.8 mg/dL (8.5-10.1); CREATININE 0.9 mg/dL (0.55-1.3); MAGNESIUM 1.8 mg/dL (1.8-2.4); POTASSIUM 3.5 mmol/L (3.5-5.1)
[2020-07-01] MEDS: DEXTROSE 5%-WATER - 1,000 ML IV SCH (06:16)
[2020-07-01 07:20] LABS: BASO % 0.8 % (0-2.0); HEMATOCRIT 23.2 % (32.4-45.2); HEMOGLOBIN 7.8 GM/dL (10.7-15.3); LYMPH % 8.2 % (8-40); MCH 28.9 pg (25.7-33.7); MCHC 33.7 g/dl (32.0-36.0); MEAN CELL VOLUME 85.7 fl (80-96); MEAN PLT VOLUME 8.6 fl (7.5-11.1); PLATELET COUNT 202 K/MM3 (134-434); RDW 16.6 % (11.6-15.6)
[2020-07-01 07:52] LABS: BLOOD UREA NITROGEN 14.9 mg/dL (7-18); CALCIUM 8.5 mg/dL (8.5-10.1); CREATININE 0.9 mg/dL (0.55-1.3); PHOSPHOROUS 2.7 mg/dL (2.5-4.9); POTASSIUM 3.3 mmol/L (3.5-5.1)
--- NOTE | 2020-07-01 09:39 | CON.GU ---
Consult Consult Specialty:: Reason for Consultation:: R hydronephrosis - History of Present Illness Chief Complaint: BRBPR History of Present Illness: 70 yr old female with a past medical history of low-normal systolic /diastolic CHF, ?infiltrative CMP most likely Amyloidosis (suspected) uncontrolled DM, diabetic foot ulcer on right foot, chronic osteomyelitis of right foot, diabetic neuropathy, left leg below knee amputation, renal dysfunction, OA, iron deficiency anemia, HLD, HTN, ESBL resistance and recent stroke who presented from rehab facility for bright red blood per rectum. She is a poor historian. As reported in chart by daughter patient's mental status is currently at her baseline. cons req. - History Source History Provided By: Medical Record - Past Medical History Cardio/Vascular: Yes: CHF, HTN, Hyperlipdemia ...: No Endocrine: Yes: Diabetes Mellitus (DM II) - Alcohol/Substance Use Hx Alcohol Use: No History of Substance Use: reports: None - Smoking History Smoking history: Never smoked Have you smoked in the past 12 months: No - Social History ADL: Support Services History of Recent Travel: No ([place]) Home Medications - Allergies Allergies/Adverse Reactions: Allergies Allergy/AdvReac Type Severity Reaction Status Date / Time No Known Allergies Allergy Verified 06/29/20 12:32 - Home Medications Home Medications: Ambulatory Orders Aspirin 81 mg PO DAILY 05/11/20 Acetaminophen Oral Solution [Tylenol Oral Solution -] 650 mg PO Q4H PRN soln.oral 06/09/20 Amlodipine Besylate [Norvasc -] 10 mg PO DAILY tablet 06/09/20 Atorvastatin Ca [Lipitor] 20 mg PO HS tablet 06/09/20 Famotidine [Pepcid -] 20 mg PO DAILY tablet 06/09/20 Ferrous Sulfate [Feosol] 325 mg PO BID ud 06/09/20 Heparin - 5,000 unit SQ BID vial 06/09/20 Insulin Sliding Scale [Novolog Vial Sliding Scale -] 1 vial SQ TID units 06/09/20 Losartan Potassium [Cozaar -] 100 mg PO DAILY tablet 06/09/20 Metoprolol Tartrate [Lopressor -] 25 mg PO BID tablet 06/09/20 Bisacodyl [Dulcolax] 10 mg RC DAILY 06/29/20 Collagenase Clostridium Hist. [Santyl -] 1 applic TP BID 06/29/20 Furosemide [Lasix] 20 mg PO DAILY 06/29/20 Insulin Detemir [Levemir Flextouch] 6 unit SQ AM 06/29/20 Mirtazapine 7.5 mg PO DAILY 06/29/20 Multivit with Minerals/Lutein [Pub Senior Vitamin Tablet] 1 each PO DAILY 06/29/20 Polyethylene Glycol 3350 [Miralax (For Daily Use) -] 17 gm PO DAILY 06/29/20 Senna [place] Extract [Senna] 176 mg PO DAILY 06/29/20 Vit C/Ascorb Sod/Multivit-Min [Emergen-C 500 mg Chewable Tab] 500 mg PO DAILY 06/29/20 Zinc 50 mg PO BID 06/29/20 Family Medical History Family History: Unremarkable Review of Systems - Review of Systems Genitourinary: denies: Flank Pain, Frequency, Hematuria Physical Exam- Vital Signs: Vital Signs Temperature 98.5 F 07/01/20 06:00 Pulse Rate 85 07/01/20 06:00 Respiratory Rate 18 07/01/20 06:00 Blood Pressure 120/61 07/01/20 06:00 O2 Sat by Pulse Oximetry (%) 90 L 07/01/20 06:00 Constitutional: Yes: Well Nourished, No Distress, Calm Gastrointestinal: Yes: WNL, Normal Bowel Sounds, Soft Renal/: Yes: WNL Kidneys: Yes: WNL Pelvis: Yes: WNL External Genitalia: Yes: WNL Labs: CBC, BMP 07/01/20 06:54 07/01/20 06:54 Imaging - Results Cat Scan: Report Reviewed Problem List - Problems (1) Bright red blood per rectum Code(s): K62.5 - HEMORRHAGE OF ANUS AND RECTUM (2) Hydronephrosis, right Assessment/Plan: no rx needed. prob d/t bladder distention Code(s): N13.30 - UNSPECIFIED HYDRONEPHROSIS (3) Hypernatremia Code(s): E87.0 - HYPEROSMOLALITY AND HYPERNATREMIA (4) Rectal bleed Code(s): K62.5 - HEMORRHAGE OF ANUS AND RECTUM (5) Amputated left leg Code(s): S88.912A - COMPLETE TRAUMATIC AMPUTATION OF L LOW LEG, LEVEL UNSP, INIT (6) Bladder distension Assessment/Plan: germain Code(s): N32.89 - OTHER SPECIFIED DISORDERS OF BLADDER
[2020-07-01] MEDS: PANTOPRAZOLE SODIUM 40 MG VIAL IVPUSH SCH ×2 (10:58→23:17)
[2020-07-01 11:25] LABS: BASO % 0.6 % (0-2.0); HEMATOCRIT 25.3 % (32.4-45.2); HEMOGLOBIN 8.4 GM/dL (10.7-15.3); LYMPH % 6.7 % (8-40); MCH 28.8 pg (25.7-33.7); MCHC 33.1 g/dl (32.0-36.0); MEAN CELL VOLUME 87.2 fl (80-96); MEAN PLT VOLUME 9.2 fl (7.5-11.1); MONO % 6.1 % (3.8-10.2); NEUT % 85.6 % (42.8-82.8); PLATELET COUNT 216 K/MM3 (134-434); RDW 16.9 % (11.6-15.6); WHITE BLOOD COUNT 11.4 K/mm3 (4.0-10.0)
[2020-07-01] MEDS ORDERED: DEXTROSE 5%-WATER - 1,000 ML with POTASSIUM CHLORIDE 20 MEQ IVPB SCH (11:30)
[2020-07-01 11:54] LABS: BLOOD UREA NITROGEN 14.8 mg/dL (7-18); POTASSIUM 3.3 mmol/L (3.5-5.1)
--- NOTE | 2020-07-01 12:02 | PN ---
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, Physician Chief Complaint: GI bleed Anemia History of Present Illness: 70 year old F came in to [facility] ER for rectal bleeding [facility] at shelter Currently pt in NAD, knows her name other callahan confused As per nursing still have hematochezia Received 1 unit of PRBC today, 2nd ordered 07/01/20: NAD CTA a/p still pending Hg dropped Continues to have hematochezia - Current Medication List Current Medications: Active Medications Amlodipine Besylate (Norvasc -) 10 mg PO DAILY [facility] Last Admin: 06/30/20 09:39 Dose: Not Given Documented by: Ascorbic Acid (Vitamin C -) 500 mg PO DAILY [facility] Last Admin: 06/30/20 09:39 Dose: Not Given Documented by: Atorvastatin Calcium (Lipitor -) 20 mg PO HS [facility] Last Admin: 06/29/20 22:10 Dose: 20 mg Documented by: Ferrous Sulfate (Feosol -) 325 mg PO BID [facility] Last Admin: 06/30/20 09:38 Dose: Not Given Documented by: Potassium Chloride 20 meq/ (Dextrose) 1,010 mls @ 83 mls/hr IVPB .Q12H3M [facility] Losartan Potassium (Cozaar -) 100 mg PO DAILY [facility] Last Admin: 06/30/20 09:38 Dose: Not Given Documented by: Metoprolol Tartrate (Lopressor -) 25 mg PO BID [facility] Last Admin: 06/30/20 09:38 Dose: Not Given Documented by: Mirtazapine (Remeron -) 7.5 mg PO HS [facility] Last Admin: 06/29/20 22:10 Dose: 7.5 mg Documented by: Multivitamins/Minerals (Theragran-M) 1 each PO DAILY [facility] Last Admin: 06/30/20 09:39 Dose: Not Given Documented by: Pantoprazole Sodium (Protonix Iv) 40 mg IVPUSH BID [facility] Last Admin: 07/01/20 10:58 Dose: 40 mg Documented by: Polyethylene Glycol (Miralax (For Daily Use) -) 17 gm PO DAILY [facility] Last Admin: 06/30/20 11:35 Dose: Not Given Documented by: Senna (Senna -) 2 tab PO DAILY [facility] Last Admin: 06/30/20 09:39 Dose: Not Given Documented by: - Objective Vital Signs: Vital Signs Temperature 98.4 F 07/01/20 11:06 Pulse Rate 100 H 07/01/20 11:06 Respiratory Rate 18 07/01/20 11:06 Blood Pressure 149/81 07/01/20 11:06 O2 Sat by Pulse Oximetry (%) 98 07/01/20 11:06 Constitutional: Yes: Well Nourished, No Distress, Calm Cardiovascular: Yes: Regular Rate and Rhythm Respiratory: Yes: Regular, CTA Bilaterally Gastrointestinal: Yes: Normal Bowel Sounds, Soft Genitourinary: Yes: Lynn Present Musculoskeletal: Yes: Muscle Weakness Extremities: Yes: Amputation (LLE) Edema: No Peripheral Pulses WNL: Yes Integumentary: Yes: Venous Stasis Changes (RLE) Neurological: Yes: Alert, Confusion, Pre-Existing Deficit Psychiatric: Yes: Alert Labs: CBC, BMP 07/01/20 10:25 07/01/20 10:25 INR, PTT INR 1.18 (0.83-1.09) H 06/29/20 13:00 Problem List - Problems (1) Rectal bleed Assessment/Plan: -GI consult -Received 2 U of PRBC -Monitor H/H closely -NPO -Change IVF D5+ KCl 20 meq @ 83 cc/hr -Hold all po meds as well -PPI BID -CTAP 06/29/20: mild right hydronephrosis, markedly distended Urinary bladder, fecal retention -Transfuse as needed to keep Hg>8.0 -Repeat labs this evening 2 hrs after another 2 units of PRBC -CTA abd/pelvis STAT still pending Problems reviewed: Yes Code(s): K62.5 - HEMORRHAGE OF ANUS AND RECTUM (2) Anemia Assessment/Plan: -Transfuse another 2 units of PRBC -Repeat CBC 2 hours after 2nd unit is finished Problems reviewed: Yes Code(s): D64.9 - ANEMIA, UNSPECIFIED (3) Hydronephrosis, right Assessment/Plan: -Lynn inserted for urinary retention -Urology consult appreciated Problems reviewed: Yes Code(s): N13.30 - UNSPECIFIED HYDRONEPHROSIS (4) Hypernatremia Assessment/Plan: -Nephrology consult -IVF -Monitor trend Problems reviewed: Yes Code(s): E87.0 - HYPEROSMOLALITY AND HYPERNATREMIA (5) Hypokalemia Problems reviewed: Yes Code(s): E87.6 - HYPOKALEMIA Assessment/Plan See problem list
--- NOTE | 2020-07-01 12:04 | PN ---
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, Physician History of Present Illness: Seen and examined at the bedside awake and alert offers no acute complaints denies any sob, cp, pain, N/V/D germain placed yesterday - Current Medication List Current Medications: Active Medications Amlodipine Besylate (Norvasc -) 10 mg PO DAILY [facility] Last Admin: 06/30/20 09:39 Dose: Not Given Documented by: Ascorbic Acid (Vitamin C -) 500 mg PO DAILY [facility] Last Admin: 06/30/20 09:39 Dose: Not Given Documented by: Atorvastatin Calcium (Lipitor -) 20 mg PO HS [facility] Last Admin: 06/29/20 22:10 Dose: 20 mg Documented by: Ferrous Sulfate (Feosol -) 325 mg PO BID [facility] Last Admin: 06/30/20 09:38 Dose: Not Given Documented by: Potassium Chloride 20 meq/ (Dextrose) 1,010 mls @ 83 mls/hr IVPB .Q12H3M [facility] Losartan Potassium (Cozaar -) 100 mg PO DAILY [facility] Last Admin: 06/30/20 09:38 Dose: Not Given Documented by: Metoprolol Tartrate (Lopressor -) 25 mg PO BID [facility] Last Admin: 06/30/20 09:38 Dose: Not Given Documented by: Mirtazapine (Remeron -) 7.[address] [facility] Last Admin: 06/29/20 22:10 Dose: 7.5 mg Documented by: Multivitamins/Minerals (Theragran-M) 1 each PO DAILY [facility] Last Admin: 06/30/20 09:39 Dose: Not Given Documented by: Pantoprazole Sodium (Protonix Iv) 40 mg IVPUSH BID [facility] Last Admin: 07/01/20 10:58 Dose: 40 mg Documented by: Polyethylene Glycol (Miralax (For Daily Use) -) 17 gm PO DAILY [facility] Last Admin: 06/30/20 11:35 Dose: Not Given Documented by: Senna (Senna -) 2 tab PO DAILY [facility] Last Admin: 06/30/20 09:39 Dose: Not Given Documented by: - Objective Vital Signs: Vital Signs Temperature 98.4 F 07/01/20 11:06 Pulse Rate 100 H 07/01/20 11:06 Respiratory Rate 18 07/01/20 11:06 Blood Pressure 149/81 07/01/20 11:06 O2 Sat by Pulse Oximetry (%) 98 07/01/20 11:06 Constitutional: Yes: No Distress HENT: Yes: Atraumatic Neck: Yes: Supple Cardiovascular: Yes: Regular Rate and Rhythm Respiratory: Yes: Regular, Diminished Gastrointestinal: Yes: Soft Extremities: Yes: Amputation. No: Cyanosis Edema: No Labs: CBC, BMP 07/01/20 10:25 07/01/20 10:25 INR, PTT INR 1.18 (0.83-1.09) H 06/29/20 13:00 Assessment/Plan 70 year old woman with history of CKD, CHF, suspected amyloidosis, DM, diabetic foot ulcers, chronic osteomyliitis, diabetic neuropathy who presented with bright red blood per rectum and to have acute anemia and hypernatremia. 1. CKD stage 3a 2. Hypernatremia (water deficit 4.6L) 3. Acute GI bleed/Anemia 4. Hx of HF with CXR consistent wit congestion 5. DM Renal function is stable. No indication for renal replacement therapy. s/p CTA, trend BUN/Cr daily for at least 72 hours. Given Heart failure would not start isotonic saline. Trend renal function closely following contrast. Start D5W with KCL at 83cc per hour for hypernatremia and hypokalemia CT images do not show volume overload, hold diuretics for now. Trend H/H GI following, possible endoscopy/colonoscopy pending CTA results Thank you Will follow Joaquín Berry DO
[2020-07-01 12:11] VITALS: BMI 26.6
--- NOTE | 2020-07-01 14:54 | PN.GI ---
GI 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 Subjective: Bleeding yesterda Scant amount of bleeding today Patient without focal complaints but is also somnolent and confused - Objective Vital Signs: Vital Signs Temperature 98.4 F 07/01/20 11:06 Pulse Rate 100 H 07/01/20 11:06 Respiratory Rate 18 07/01/20 11:06 Blood Pressure 149/81 07/01/20 11:06 O2 Sat by Pulse Oximetry (%) 98 07/01/20 11:06 Constitutional: Calm Eyes: No: Sclera Icterus Cardiovascular: Yes: Regular Rate and Rhythm. No: Murmur Respiratory: Yes: Diminished (At bases bilaterally) Gastrointestinal Inspection: No: Distention ...Auscultate: Yes: Normoactive Bowel Sounds ...Palpate: Yes: Soft. No: Hepatomegaly, Splenomegaly, Tenderness ...Rectal Exam: Yes: Other (+ external skin tag, no masses, dark red blood in rectal vault) Edema: No (Left BKA) Neurological: Yes: Alert, Oriented (x person only) Labs: CBC, BMP 07/01/20 10:25 07/01/20 10:25 INR, PTT INR 1.18 (0.83-1.09) H 06/29/20 13:00 Problem List - Problems (1) Rectal bleed Assessment/Plan: Attempted to discuss the plan for colonoscopy +/- EGD with the patient. She is confused. Explained that to her daughter as well via telephone. Discussed potential eisks of the procedure like but not limited to bleeding, perforation requiring surgery to repair, infection, sedation medication effetcs all of which could be potentially life threatneing. She has agreed to the procedure. Explained that patient compliance with bowel preparation may be a barrier to having the procedure performed. D/W Gokul Starr NP. She asked if NGT could be placed to help facilitate bowel preparation. Patient compliance with NGT may be a barrier to this but I explained that if her daughter was in agreement, that could be attempted. Gokul Starr [employer] TECH[employer]ICIAN stated that she would discuss with the patient's daughter. If NGT if placed, 1 gallon golytely over 4 hours, aspiration precautions, keepo head of bed elevated 45 degrees at all times If significant persistent bleeding, transfer to ICU for closer monitoring and obtain surgical consult NPO except meds Monitor H/H Keep Hgb >8 Code(s): K62.5 - HEMORRHAGE OF ANUS AND RECTUM
[2020-07-01] MEDS ORDERED: METOPROLOL TARTRATE 5 MG/5 ML VIAL IVPB PRN (15:58)
[2020-07-01] MEDS ORDERED: PEG 3350/NA SULF BICARB CL/KCL 4000 ML SOLN.RECON NGT ONE (17:00)
[2020-07-01 19:25] LABS: BASO % 0.6 % (0-2.0); EOS % 1.1 % (0-4.5); HEMATOCRIT 30.6 % (32.4-45.2); LYMPH % 6.6 % (8-40); MCH 28.2 pg (25.7-33.7); MCHC 32.8 g/dl (32.0-36.0); MEAN CELL VOLUME 85.8 fl (80-96); MEAN PLT VOLUME 9.2 fl (7.5-11.1); MONO % 5.4 % (3.8-10.2); NEUT % 86.3 % (42.8-82.8); PLATELET COUNT 211 K/MM3 (134-434); RBC 3.57 M/mm3 (3.60-5.2); RDW 16.3 % (11.6-15.6)
[2020-07-01] MEDS: D5-1/2NS+20 MEQ KCL - 20 MEQ/1,000 ML INFUS.BAG IV SCH (23:18)
[2020-07-02 07:16] LABS: BASO % 0.7 % (0-2.0); HEMATOCRIT 28.5 % (32.4-45.2); HEMOGLOBIN 9.4 GM/dL (10.7-15.3); LYMPH % 6.3 % (8-40); MCH 27.9 pg (25.7-33.7); MCHC 33.1 g/dl (32.0-36.0); MEAN CELL VOLUME 84.4 fl (80-96); MEAN PLT VOLUME 8.8 fl (7.5-11.1); MONO % 7.2 % (3.8-10.2); NEUT % 83.8 % (42.8-82.8); PLATELET COUNT 204 K/MM3 (134-434); RBC 3.37 M/mm3 (3.60-5.2); RDW 16.9 % (11.6-15.6); WHITE BLOOD COUNT 12.6 K/mm3 (4.0-10.0)
[2020-07-02 07:44] LABS: BILIRUBIN,TOTAL 0.4 mg/dL (0.2-1); BLOOD UREA NITROGEN 11.6 mg/dL (7-18); CALCIUM 8.3 mg/dL (8.5-10.1); CREATININE 0.8 mg/dL (0.55-1.3); MAGNESIUM 1.5 mg/dL (1.8-2.4); PHOSPHOROUS 2.2 mg/dL (2.5-4.9); POTASSIUM 3.2 mmol/L (3.5-5.1); TOT PROT 6.8 g/dl (6.4-8.2)
[2020-07-02] MEDS: PANTOPRAZOLE SODIUM 40 MG VIAL IVPUSH SCH (09:51)
--- NOTE | 2020-07-02 11:27 | PN ---
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, Physician Chief Complaint: GI bleed Anemia History of Present Illness: 70 year old F came in to [facility] ER [facility] Currently pt in NAD, knows her name other callahan confused As per nursing still have hematochezia Received 1 unit of PRBC today, 2nd ordered 07/01/20: NAD CTA a/p still pending Hg dropped Continues to have hematochezia 07/02/20: NAD CTA unremarkable Continue to be NPO and on IVF for Colonoscopy today Finished prep overnight with 12 Fr NGT Daughter aware and agreeable to plan - Current Medication List Current Medications: Active Medications Amlodipine Besylate (Norvasc -) 10 mg PO DAILY [facility] Last Admin: 06/30/20 09:39 Dose: Not Given Documented by: Ascorbic Acid (Vitamin C -) 500 mg PO DAILY [facility] Last Admin: 06/30/20 09:39 Dose: Not Given Documented by: Atorvastatin Calcium (Lipitor -) 20 mg PO HS [facility] Last Admin: 06/29/20 22:10 Dose: 20 mg Documented by: Potassium Chloride 20 meq/ (Dextrose) 1,010 mls @ 83 mls/hr IVPB .Q12H3M [facility] Last Admin: 07/02/20 00:00 Dose: 83 mls/hr Documented by: Losartan Potassium (Cozaar -) 100 mg PO DAILY [facility] Last Admin: 06/30/20 09:38 Dose: Not Given Documented by: Metoprolol Tartrate (Lopressor -) 25 mg PO BID [facility] Last Admin: 06/30/20 09:38 Dose: Not Given Documented by: Metoprolol Tartrate (Lopressor Injection -) 5 mg IVPB Q4H PRN PRN Reason: HYPERTENSION Mirtazapine (Remeron -) 7.5 mg PO HS [facility] Last Admin: 06/29/20 22:10 Dose: 7.5 mg Documented by: Multivitamins/Minerals (Theragran-M) 1 each PO DAILY [facility] Last Admin: 06/30/20 09:39 Dose: Not Given Documented by: Pantoprazole Sodium (Protonix Iv) 40 mg IVPUSH BID [facility] Last Admin: 07/02/20 09:51 Dose: 40 mg Documented by: Polyethylene Glycol (Miralax (For Daily Use) -) 17 gm PO DAILY [facility] Last Admin: 06/30/20 11:35 Dose: Not Given Documented by: Senna (Senna -) 2 tab PO DAILY [facility] Last Admin: 06/30/20 09:39 Dose: Not Given Documented by: - Objective Vital Signs: Vital Signs Temperature 98.2 F 07/02/20 10:00 Pulse Rate 92 H 07/02/20 10:00 Respiratory Rate 18 07/02/20 10:00 Blood Pressure 150/87 07/02/20 10:00 O2 Sat by Pulse Oximetry (%) 96 07/02/20 10:00 Constitutional: Yes: Well Nourished, No Distress, Calm Cardiovascular: Yes: Regular Rate and Rhythm Respiratory: Yes: Regular, CTA Bilaterally Gastrointestinal: Yes: Normal Bowel Sounds, Soft Genitourinary: Yes: Lynn Present Musculoskeletal: Yes: Muscle Weakness Extremities: Yes: Amputation (LLE) Edema: No Peripheral Pulses WNL: Yes Neurological: Yes: Pre-Existing Deficit Labs: CBC, BMP 07/02/20 06:47 07/02/20 06:47 INR, PTT INR 1.18 (0.83-1.09) H 06/29/20 13:00 Problem List - Problems (1) Rectal bleed Assessment/Plan: -GI consult -Monitor H/H closely -NPO -Change IVF D5+ KCl 40 meq @ 83 cc/hr -Hold all po meds as well -PPI BID -CTAP 06/29/20: mild right hydronephrosis, markedly distended Urinary bladder, fecal retention -Transfuse as needed to keep Hg>8.0 -Total of 4 units of PRBC -CTA abd/pelvis unremarkable -For Colonoscopy today -Medically stable for colonoscopy with acceptable OR risks Problems reviewed: Yes Code(s): K62.5 - HEMORRHAGE OF ANUS AND RECTUM (2) Anemia Assessment/Plan: 2/2 to acute blood loss -Monitor daily H/H -Total 4 units of PRBC since admission Problems reviewed: Yes Code(s): D64.9 - ANEMIA, UNSPECIFIED (3) Hydronephrosis, right Assessment/Plan: -Lynn inserted for urinary retention -Urology consult appreciated Problems reviewed: Yes Code(s): N13.30 - UNSPECIFIED HYDRONEPHROSIS (4) Hypernatremia Assessment/Plan: -Nephrology consult -IVF -Monitor trend Problems reviewed: Yes Code(s): E87.0 - HYPEROSMOLALITY AND HYPERNATREMIA (5) Hypokalemia Assessment/Plan: -Change IVF to D5 + KCl 40 meq @ 83 cc/hr -KCl 10 meq x 3 IVPB -Nephrology on board -monitor trend Problems reviewed: Yes Code(s): E87.6 - HYPOKALEMIA Assessment/Plan See problem list
[2020-07-02] MEDS ORDERED: DEXTROSE 5%-WATER - 1,000 ML with POTASSIUM CHLORIDE 40 MEQ IVPB SCH ×2 (12:45→15:46)
[2020-07-02] MEDS ORDERED: KCL 10 MEQ IVPB 10 MEQ/100 ML INFUS.BAG IVPB SCH (12:45)
[2020-07-02] MEDS ORDERED: METOPROLOL TARTRATE 5 MG/5 ML VIAL IVPB PRN (15:46)
--- NOTE | 2020-07-02 15:49 | PN ---
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, Physician History of Present Illness: Seen and examined at the bedside awake and alert seen post endoscopy awake and alert offers no acute complaints no sob, cp, fever, or chills - Current Medication List Current Medications: Active Medications Potassium Chloride 40 meq/ (Dextrose) 1,020 mls @ 83 mls/hr IVPB .Q12H3M [facility] Pantoprazole Sodium (Protonix Iv) 40 mg IVPUSH DAILY [facility] - Objective Vital Signs: Vital Signs Temperature 98.2 F 07/02/20 14:57 Pulse Rate 91 H 07/02/20 15:31 Respiratory Rate 15 07/02/20 15:31 Blood Pressure 137/69 07/02/20 15:31 O2 Sat by Pulse Oximetry (%) 96 07/02/20 15:31 Constitutional: Yes: No Distress HENT: Yes: Atraumatic Neck: Yes: Supple Cardiovascular: Yes: Regular Rate and Rhythm Respiratory: Yes: Regular Gastrointestinal: Yes: Soft. No: Tenderness Extremities: No: Cyanosis Edema: No Neurological: Yes: Alert Labs: CBC, BMP 07/02/20 06:47 07/02/20 06:47 INR, PTT INR 1.18 (0.83-1.09) H 06/29/20 13:00 Assessment/Plan 70 year old woman with history of CKD, CHF, suspected amyloidosis, DM, diabetic foot ulcers, chronic osteomyliitis, diabetic neuropathy who presented with bright red blood per rectum and to have acute anemia and hypernatremia. 1. CKD stage 3a 2. Hypernatremia (water deficit 4.6L) 3. Acute GI bleed/Anemia 4. Hx of HF with CXR consistent wit congestion 5. DM Renal function is stable. Hypernatremia persists. Cr stable s/p CTA. Continue D5W with KCl as serum sodium is high and pt has poor oral intake at the moment. PRN lasix IVP (20 or 40mg) as needed if there is any sign of congestion or lower extremity edema. CXR shows slightly increased central congestion but no rales heard on physical examination. Trend H/H s/p Endoscpy, GI following. Thank you Will follow Joaquín Berry DO
[2020-07-02] MEDS: KCL 10 MEQ IVPB 10 MEQ/100 ML INFUS.BAG IVPB SCH ×3 (16:29→18:52)
[2020-07-02] MEDS: POTASSIUM CHLORIDE 40 MEQ in DEXTROSE 5%-WATER - 1,000 ML IVPB SCH (17:30)
[2020-07-02] MEDS: METOPROLOL TARTRATE 25 MG TABLET (FP) PO SCH (21:34)
[2020-07-02] MEDS: ATORVASTATIN CA 20 MG TABLET (FP) PO SCH (21:34)
[2020-07-02] MEDS: MIRTAZAPINE 15 MG TABLET (FP) PO SCH (21:34)
[2020-07-03 07:35] LABS: BILIRUBIN,TOTAL 0.7 mg/dL (0.2-1); BLOOD UREA NITROGEN 7.7 mg/dL (7-18); CALCIUM 8.5 mg/dL (8.5-10.1); CREATININE 0.8 mg/dL (0.55-1.3); MAGNESIUM 1.5 mg/dL (1.8-2.4); POTASSIUM 3.3 mmol/L (3.5-5.1); TOT PROT 6.4 g/dl (6.4-8.2)
[2020-07-03 07:58] LABS: BASO % 0.5 % (0-2.0); EOS % 3.7 % (0-4.5); HEMATOCRIT 24.3 % (32.4-45.2); HEMOGLOBIN 8.2 GM/dL (10.7-15.3); LYMPH % 7.9 % (8-40); MCH 28.5 pg (25.7-33.7); MCHC 33.8 g/dl (32.0-36.0); MEAN CELL VOLUME 84.4 fl (80-96); MEAN PLT VOLUME 8.8 fl (7.5-11.1); MONO % 6.3 % (3.8-10.2); NEUT % 81.6 % (42.8-82.8); PLATELET COUNT 199 K/MM3 (134-434); RBC 2.88 M/mm3 (3.60-5.2); RDW 16.8 % (11.6-15.6); WHITE BLOOD COUNT 10.1 K/mm3 (4.0-10.0)
--- NOTE | 2020-07-03 09:35 | PN.GI ---
GI 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 Subjective: No overt bleeding reported by nursing patient states feeling well - Objective Vital Signs: Vital Signs Temperature 97.9 F 07/03/20 06:23 Pulse Rate 91 H 07/03/20 06:23 Respiratory Rate 18 07/03/20 06:23 Blood Pressure 152/84 07/03/20 06:23 O2 Sat by Pulse Oximetry (%) 98 07/03/20 06:23 Constitutional: Calm Eyes: No: Sclera Icterus Cardiovascular: Yes: Regular Rate and Rhythm. No: Murmur Respiratory: Yes: CTA Bilaterally Gastrointestinal Inspection: No: Distention ...Auscultate: Yes: Normoactive Bowel Sounds ...Palpate: Yes: Soft. No: Hepatomegaly, Splenomegaly, Tenderness ...Percussion: No: Tympanitic Extremities: Yes: Other (Left BKA) Edema: No (No LE edema) Labs: CBC, BMP 07/03/20 05:55 07/03/20 05:55 INR, PTT INR 1.18 (0.83-1.09) H 06/29/20 13:00 Assessment/Plan S/P colonoscopy: old blood and clots in distal colon, proximal colon di verticulosis, no blood or clots in terminal ileum Suspect resolved diverticular bleed Monitor H/H and for overt bleeding. keep Hgb >8 Being evaluated by cardiology Advance diet: restrictions per usp feeding regimen given h/o CVA and dysphagia Problem List - Problems (1) Rectal bleed Code(s): K62.5 - HEMORRHAGE OF ANUS AND RECTUM
[2020-07-03] MEDS ORDERED: MAGNESIUM 1GM/D5W - 1 GM/100 ML IVPB IVPB ONE (10:53)
--- NOTE | 2020-07-03 10:56 | PN ---
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, Physician Chief Complaint: GI Bleed Anemia History of Present Illness: Previous notes and events reviewed awake and alert NAD denies chest pain or SOB RN reports patient has periods of tachycardia-Cardiology consult placed K 3.3-KCL 10mEq IVPB x 1 as per aid still with blood in stool this AM - Current Medication List Current Medications: Active Medications Amlodipine Besylate (Norvasc -) 10 mg PO DAILY [facility] Ascorbic Acid (Vitamin C -) 500 mg PO DAILY [facility] Atorvastatin Calcium (Lipitor -) 20 mg PO HS [facility] Last Admin: 07/02/20 21:34 Dose: Not Given Documented by: Potassium Chloride 40 meq/ (Dextrose) 1,020 mls @ 83 mls/hr IVPB ASDIR [facility] Last Admin: 07/02/20 17:30 Dose: 83 mls/hr Documented by: Potassium Chloride (Potassium Chloride 10 Meq Premix Ivpb -) 10 meq in 100 mls @ 100 mls/hr IVPB Q60M [facility] Stop: 07/03/20 11:59 Magnesium Sulfate/Dextrose 1 (gm/ Miscellaneous) 100 mls @ 100 mls/hr IVPB ONCE ONE Stop: 07/03/20 11:52 Losartan Potassium (Cozaar -) 100 mg PO DAILY [facility] Metoprolol Tartrate (Lopressor Injection -) 5 mg IVPB Q4H PRN PRN Reason: HYPERTENSION Metoprolol Tartrate (Lopressor -) 25 mg PO BID [facility] Last Admin: 07/02/20 21:34 Dose: Not Given Documented by: Mirtazapine (Remeron -) 7.5 mg PO HS [facility] Last Admin: 07/02/20 21:34 Dose: Not Given Documented by: Multivitamins/Minerals (Theragran-M) 1 each PO DAILY [facility] Pantoprazole Sodium (Protonix Iv) 40 mg IVPUSH DAILY [facility] Polyethylene Glycol (Miralax (For Daily Use) -) 17 gm PO DAILY [facility] Senna (Senna -) 2 tab PO DAILY [facility] - Objective Vital Signs: Vital Signs Temperature 97.9 F 07/03/20 06:23 Pulse Rate 91 H 07/03/20 06:23 Respiratory Rate 18 07/03/20 09:00 Blood Pressure 152/84 07/03/20 06:23 O2 Sat by Pulse Oximetry (%) 99 07/03/20 09:00 Constitutional: Yes: No Distress, Calm Eyes: Yes: Conjunctiva Clear Cardiovascular: Yes: Regular Rate and Rhythm Respiratory: Yes: Regular, Diminished, On Nasal O2 Gastrointestinal: Yes: Normal Bowel Sounds, Soft Genitourinary: Yes: Lynn Present Musculoskeletal: Yes: Muscle Weakness Extremities: Yes: Amputation (L AKA) Neurological: Yes: Alert, Pre-Existing Deficit Psychiatric: Yes: Alert Labs: CBC, BMP 07/03/20 05:55 07/03/20 05:55 INR, PTT INR 1.18 (0.83-1.09) H 06/29/20 13:00 Problem List - Problems (1) Hypernatremia Assessment/Plan: Nephrology on board NA 149-showing downtrend D5W + KCl monitor Na daily Code(s): E87.0 - HYPEROSMOLALITY AND HYPERNATREMIA (2) Hypokalemia Assessment/Plan: K 3.3 KCl 10mEq IVPB x 1 D5W + KCl at 83cc/hr replete as needed monitor K daily Code(s): E87.6 - HYPOKALEMIA (3) Rectal bleed Assessment/Plan: GI on board s/p colonoscopy on 07/02/20 with oldb lood and clots in distal colon, proximal colon diverticulosis, no blood or clots in terminal ileum Hg 8.2 monitor Hg daily transfuse for Hg < 7.0 Code(s): K62.5 - HEMORRHAGE OF ANUS AND RECTUM (4) Anemia Assessment/Plan: GI on board s/p colonoscopy on 07/02/20 with oldb lood and clots in distal colon, proximal colon diverticulosis, no blood or clots in terminal ileum Hg 8.2 monitor Hg daily transfuse for Hg < 7.0 Code(s): D64.9 - ANEMIA, UNSPECIFIED (5) CVA (cerebral vascular accident) Assessment/Plan: Fall precaution Puree diet with nectar thick liquids HOB elevated when feeding aspiration precaution Code(s): I63.9 - CEREBRAL INFARCTION, UNSPECIFIED (6) HTN (hypertension) Assessment/Plan: Losartan, Amlodipine, Metoprolol BID Low Na puree diet Code(s): I10 - ESSENTIAL (PRIMARY) HYPERTENSION (7) Hydronephrosis, right Assessment/Plan: Urology consult Code(s): N13.30 - UNSPECIFIED HYDRONEPHROSIS
[2020-07-03] MEDS ORDERED: KCL 10 MEQ IVPB 10 MEQ/100 ML INFUS.BAG IVPB SCH (11:00)
[2020-07-03] MEDS: SENNOSIDES 8.6MG TABLET (FP) PO SCH (11:10)
[2020-07-03] MEDS: MULTIVITAMINS THER W-MINERALS COMBO TABLET (FP) PO SCH (11:10)
[2020-07-03] MEDS: amLODIPine BESYLATE 10 MG TABLET (FP) PO SCH (11:10)
[2020-07-03] MEDS: METOPROLOL TARTRATE 25 MG TABLET (FP) PO SCH ×2 (11:10→21:21)
[2020-07-03] MEDS: PANTOPRAZOLE SODIUM 40 MG VIAL IVPUSH SCH (11:10)
[2020-07-03] MEDS: ASCORBIC ACID 500 MG TABLET (FP) PO SCH (11:11)
[2020-07-03] MEDS: POLYETHYLENE GLYCOL 3350 119 GM BTL PO SCH (11:11)
[2020-07-03] MEDS: LOSARTAN POTASSIUM 50 MG TABLET PO SCH (11:11)
--- NOTE | 2020-07-03 11:28 | CON.CARD ---
Consult Consult Specialty:: Cardiology - History of Present Illness History of Present Illness: 70 yr old female with a past medical history of low-normal systolic /diastolic CHF, ?infiltrative CMP most likely Amyloidosis (suspected) uncontrolled DM, diabetic foot ulcer on right foot, chronic osteomyelitis of right foot, diabetic neuropathy, left leg below knee amputation, renal dysfunction, OA, iron d eficiency anemia, HLD, HTN, ESBL resistance and recent stroke who presented from rehab facility for bright red blood per rectum. 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 Cardio/Vascular: Yes: CHF, HTN, Hyperlipdemia ...: No Endocrine: Yes: Diabetes Mellitus (DM II) - Alcohol/Substance Use Hx Alcohol Use: No History of Substance Use: reports: None - Smoking History Smoking history: Never smoked Have you smoked in the past 12 months: No - Social History ADL: Support Services History of Recent Travel: No ([place]) Home Medications - Allergies Allergies/Adverse Reactions: Allergies Allergy/AdvReac Type Severity Reaction Status Date / Time No Known Allergies Allergy Verified 06/29/20 12:32 - Home Medications Home Medications: Ambulatory Orders Aspirin 81 mg PO DAILY 05/11/20 Acetaminophen Oral Solution [Tylenol Oral Solution -] 650 mg PO Q4H PRN soln.oral 06/09/20 Amlodipine Besylate [Norvasc -] 10 mg PO DAILY tablet 06/09/20 Atorvastatin Ca [Lipitor] 20 mg PO HS tablet 06/09/20 Famotidine [Pepcid -] 20 mg PO DAILY tablet 06/09/20 Ferrous Sulfate [Feosol] 325 mg PO BID ud 06/09/20 Heparin - 5,000 unit SQ BID vial 06/09/20 Insulin Sliding Scale [Novolog Vial Sliding Scale -] 1 vial SQ TID units 06/09/20 Losartan Potassium [Cozaar -] 100 mg PO DAILY tablet 06/09/20 Metoprolol Tartrate [Lopressor -] 25 mg PO BID tablet 06/09/20 Bisacodyl [Dulcolax] 10 mg RC DAILY 06/29/20 Collagenase Clostridium Hist. [Santyl -] 1 applic TP BID 06/29/20 Furosemide [Lasix] 20 mg PO DAILY 06/29/20 Insulin Detemir [Levemir Flextouch] 6 unit SQ AM 06/29/20 Mirtazapine 7.5 mg PO DAILY 06/29/20 Multivit with Minerals/Lutein [Pub Senior Vitamin Tablet] 1 each PO DAILY 06/29/20 Polyethylene Glycol 3350 [Miralax (For Daily Use) -] 17 gm PO DAILY 06/29/20 Senna Pierre Part Extract [Senna] 176 mg PO DAILY 06/29/20 Vit C/Ascorb Sod/Multivit-Min [Emergen-C 500 mg Chewable Tab] 500 mg PO DAILY 06/29/20 Zinc 50 mg PO BID 06/29/20 Family Medical History Family History: Unremarkable Review of Systems - Review of Systems Constitutional: reports: No Symptoms Eyes: reports: No Symptoms HENT: reports: No Symptoms Neck: reports: No Symptoms Cardiovascular: reports: No Symptoms Respiratory: reports: No Symptoms Gastrointestinal: reports: No Symptoms, Rectal Bleeding Genitourinary: reports: No Symptoms Breasts: reports: No Symptoms Reported Musculoskeletal: reports: No Symptoms Integumentary: reports: No Symptoms Neurological: reports: No Symptoms Endocrine: reports: No Symptoms Hematology/Lymphatic: reports: No Symptoms Psychiatric: reports: No Symptoms Vital Signs: Vital Signs Temperature 97.9 F 07/03/20 06:23 Pulse Rate 91 H 07/03/20 06:23 Respiratory Rate 18 07/03/20 09:00 Blood Pressure 152/84 07/03/20 06:23 O2 Sat by Pulse Oximetry (%) 99 07/03/20 09:00 Constitutional: Yes: Well Nourished, No Distress, Calm Eyes: Yes: WNL, Conjunctiva Clear, EOM Intact HENT: Yes: WNL, Atraumatic, Normocephalic Neck: Yes: WNL, Supple, Trachea Midline Respiratory: Yes: WNL, Regular, CTA Bilaterally Gastrointestinal: Yes: WNL, Normal Bowel Sounds Renal/: Yes: WNL Cardiovascular: Yes: WNL, Regular Rate and Rhythm Heart Sounds: Yes: S1, S2 Musculoskeletal: Yes: WNL Extremities: Yes: Amputation (L BKA) Edema: No Integumentary: Yes: WNL Neurological: Yes: WNL, Alert, Oriented ...Motor Strength: WNL Psychiatric: Yes: WNL, Alert, Oriented - Other Data Labs, Other Data: CBC, BMP 07/03/20 05:55 07/03/20 05:55 INR, PTT INR 1.18 (0.83-1.09) H 06/29/20 13:00 Imaging - Results Chest X-ray: Image Reviewed (no i/e) EKG: Image Reviewed (sr apcs) Problem List - Problems (1) Bladder distension Code(s): N32.89 - OTHER SPECIFIED DISORDERS OF BLADDER (2) Bright red blood per rectum Code(s): K62.5 - HEMORRHAGE OF ANUS AND RECTUM (3) Hydronephrosis, right Code(s): N13.30 - UNSPECIFIED HYDRONEPHROSIS (4) Hypernatremia Code(s): E87.0 - HYPEROSMOLALITY AND HYPERNATREMIA (5) Hypokalemia Code(s): E87.6 - HYPOKALEMIA (6) Rectal bleed Code(s): K62.5 - HEMORRHAGE OF ANUS AND RECTUM (7) Acute on chronic renal failure Code(s): N17.9 - ACUTE KIDNEY FAILURE, UNSPECIFIED; N18.9 - CHRONIC KIDNEY DISE ASE, UNSPECIFIED Qualifiers: Acute renal failure type: unspecified Chronic kidney disease stage: unspecified stage Qualified Code(s): N17.9 - Acute kidney failure, unspecified; N18.9 - Chronic kidney disease, unspecified (8) Amputated left leg Code(s): S88.912A - COMPLETE TRAUMATIC AMPUTATION OF L LOW LEG, LEVEL UNSP, INIT (9) Amyloid disease Code(s): E85.9 - AMYLOIDOSIS, UNSPECIFIED (10) Anemia Code(s): D64.9 - ANEMIA, UNSPECIFIED (11) Bacteremia Code(s): R78.81 - BACTEREMIA (12) CHF (congestive heart failure) Code(s): I50.9 - HEART FAILURE, UNSPECIFIED Qualifiers: Heart failure type: unspecified Heart failure chronicity: unspecified Qualified Code(s): I50.9 - Heart failure, unspecified (13) CVA (cerebral vascular accident) Code(s): I63.9 - CEREBRAL INFARCTION, UNSPECIFIED (14) Diabetic foot ulcer Code(s): E11.621 - TYPE 2 DIABETES MELLITUS WITH FOOT ULCER; L97.509 - NON- PRESSURE CHRONIC ULCER OTH PRT UNSP FOOT W UNSP SEVERITY Qualifiers: Diabetes mellitus type: type 1 Laterality: right (15) Elevated liver enzymes Code(s): R74.8 - ABNORMAL LEVELS OF OTHER SERUM ENZYMES (16) HTN (hypertension) Code(s): I10 - ESSENTIAL (PRIMARY) HYPERTENSION (17) Pleural effusion Code(s): J90 - PLEURAL EFFUSION, NOT ELSEWHERE CLASSIFIED (18) Right lower lobe pneumonia Code(s): J18.9 - PNEUMONIA, UNSPECIFIED ORGANISM Qualifiers: Pneumonia type: due to unspecified organism Qualified Code(s): J18.9 - Pneumonia, unspecified organism (19) Sepsis Code(s): A41.9 - SEPSIS, UNSPECIFIED ORGANISM (20) Septic shock Code(s): A41.9 - SEPSIS, UNSPECIFIED ORGANISM; R65.21 - SEVERE SEPSIS WITH SEPTIC SHOCK (21) Troponin I above reference range Code(s): R79.89 - OTHER SPECIFIED ABNORMAL FINDINGS OF BLOOD CHEMISTRY Assessment/Plan 70 yr old female with a past medical history of low-normal systolic /diastolic CHF, ?infiltrative CMP most likely Amyloidosis (suspected) uncontrolled DM, diabetic foot ulcer on right foot, chronic osteomyelitis of right foot, diabetic neuropathy, left leg below knee amputation, renal dysfunction, OA, iron deficiency anemia, HLD, HTN, ESBL resistance and recent stroke who presented from rehab facility for bright red blood per rectum. Severe anema Hypokalemia CMP r/o amyloidosis Plan; suplement K Keep HCT close to 30% DVT PLX Medical rx
[2020-07-03 14:51] LABS: BILIRUBIN,TOTAL 0.4 mg/dL (0.2-1); BLOOD UREA NITROGEN 7.6 mg/dL (7-18); CALCIUM 8.2 mg/dL (8.5-10.1); CREATININE 0.8 mg/dL (0.55-1.3); POTASSIUM 3.5 mmol/L (3.5-5.1); TOT PROT 6.4 g/dl (6.4-8.2)
--- NOTE | 2020-07-03 15:04 | PN ---
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 (short form) - Note 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: RENAL awake and alert comfortable Last Vital Signs Temp Pulse Resp BP Pulse Ox 98 F 92 H 20 119/76 98 07/03/20 14:20 07/03/20 14:20 07/03/20 14:20 07/03/20 14:20 07/03/20 14:20 lungs clear cvs s1s2 rr abd soft ext no edema neuro a+ox3 CBC, BMP 07/03/20 05:55 07/03/20 13:46 Current Medications Generic Name Dose Route Start Last Admin Trade Name Freq PRN Reason Stop Dose Admin Amino Acids 30 ml 07/04/20 10:00 Prosource No Carb Liquid Pkt PO DAILY [facility] Amlodipine Besylate 10 mg 07/03/20 10:00 07/03/20 11:10 Norvasc - PO 10 mg DAILY [facility] Administration Ascorbic Acid 500 mg 07/03/20 10:00 07/03/20 11:11 Vitamin C - PO 500 mg DAILY [facility] Administration Atorvastatin Calcium 20 mg 07/02/20 22:00 07/02/20 21:34 Lipitor - PO Not Given HS [facility] Potassium Chloride 40 meq/ 1,020 mls @ 83 mls/hr 07/02/20 16:00 07/02/20 17:30 Dextrose IVPB 83 mls/hr ASDIR [facility] Administration Losartan Potassium 100 mg 07/03/20 10:00 07/03/20 11:11 Cozaar - PO 100 mg DAILY [facility] Administration Metoprolol Tartrate 5 mg 07/02/20 15:46 Lopressor Injection - IVPB Q4H PRN HYPERTENSION Metoprolol Tartrate 25 mg 07/02/20 22:00 07/03/20 11:10 Lopressor - PO 25 mg BID [facility] Administration Mirtazapine 7.5 mg 07/02/20 22:00 07/02/20 21:34 Remeron - PO Not Given HS [facility] Multivitamins/Minerals 1 each 07/03/20 10:00 07/03/20 11:10 Theragran-M PO 1 each DAILY [facility] Administration Pantoprazole Sodium 40 mg 07/03/20 10:00 07/03/20 11:10 Protonix Iv IVPUSH 40 mg DAILY [facility] Administration Polyethylene Glycol 17 gm 07/03/20 10:00 07/03/20 11:11 Miralax (For Daily Use) - PO Not Given DAILY [facility] Senna 2 tab 07/03/20 10:00 07/03/20 11:10 Senna - PO 2 tab DAILY [facility] Administration 70 year old woman with history of CKD, CHF, suspected amyloidosis, DM, diabetic foot ulcers, chronic osteomyliitis, diabetic neuropathy who presented with bright red blood per rectum and to have acute anemia and hypernatremia. 1. CKD stage 3a 2. Hypernatremia 3. Acute GI bleed/Anemia 4. Hx of HF with CXR consistent wit congestion 5. DM Renal function is stable. continue fluids monitor renal function MV
[2020-07-03] MEDS: POTASSIUM CHLORIDE 40 MEQ in DEXTROSE 5%-WATER - 1,000 ML IVPB SCH (16:00)
[2020-07-03 16:06] LABS: HEMATOCRIT 22.2 % (32.4-45.2); HEMOGLOBIN 7.6 GM/dL (10.7-15.3); MCH 29.5 pg (25.7-33.7); MCHC 34.1 g/dl (32.0-36.0); MEAN CELL VOLUME 86.6 fl (80-96); MEAN PLT VOLUME 9.2 fl (7.5-11.1); PLATELET COUNT 190 K/MM3 (134-434); RBC 2.56 M/mm3 (3.60-5.2); RDW 16.7 % (11.6-15.6); WHITE BLOOD COUNT 9.7 K/mm3 (4.0-10.0)
--- NOTE | 2020-07-03 16:34 | PN ---
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 (short form) - Note 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: No acute events Continues to pass clots per nurse and Hgb has dwindled to 7.6 Patient had lunch today Advise: NPO Ordered repeat CTA to help localize potential active bleeding source If continued bleeding, and pending results of CTA, discussed upper endoscopy +/- repeat colonoscopy with daughter Surgical consult ICU evaluation Discussed plan with SUPER[employer] Tucker Problem List - Problems (1) Rectal bleed Code(s): K62.5 - HEMORRHAGE OF ANUS AND RECTUM
--- NOTE | 2020-07-03 17:37 | CONSULT ---
Consultation: REQUESTING PROVIDER: CONSULT REQUEST: We have been asked to medically evaluate this patient for hemodynamic monitoring HISTORY OF PRESENT ILLNESS: Patient is a 70 YO F w/ PMH HTN, HLD, CHF, suspected Amyloidosis, DM with diabetic foot ulcer on right foot & diabetic neuropathy, CKD stage 3a, iron deficiency anemia, Left BKA, chronic osteomyelitis of Right foot, OA, history ESBL resistance, and stroke presented from shelter with bright red blood per rectum. Patient's daughter was at bedside in ED and endorsed that the patient was at her mental baseline; she is a poor historian. On arrival to the ED, her stool occult was positive, and her Hgb/Hct was 9.3/28.3. Na+ was elevated at 152. CTAP on 06/29 showed mild R-sided hydronephrosis & proximal hydroureter with a markedly distended urinary bladder; fibroid uterus; fecal retention. Lynn was inserted for the urinary retention. Protonix 40 mg IV was started, and patient was NPO with all PO meds being held given GI bleed. Patient received PRBC transfusion on 06/30/20. H/H was monitored closely. CTA on 07/01/20 showed no gross bleeding. She Underwent colonoscopy on 07/02/20 that showed (1) old blood and clots found in the distal 1/2 of the colon, (2) moderate diverticulosis in proximal transverse colon and ascending colon, suspect resolved proximal colon diverticular bleed, (3) 7 mm sessil polyp in Right colon, (4) 4 mm sessile polp in cecum, (5) yellow bile from terminal ileum, (6) small internal hemorrhoids. Patient was moved to [facility] due to frequent PAC's and PVC's. Today, patient continues to pass clots in stool per nursing, and Hgb 7.6. Patient is NPO again and repeat CTA was ordered to identify possible bleeding sources. ICU was consulted to monitor hemodynamic stability. 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 REVIEW OF SYSTEMS: unable to obtain as patient is altered and not responding to questions PHYSICAL EXAMINATION Vital Signs - 24 hr 07/02/20 07/02/20 07/03/20 21:00 23:00 02:07 Temperature 97.9 F 97.5 F L Pulse Rate 91 H 92 H Respiratory 18 18 18 Rate Blood Pressure 142/90 155/85 O2 Sat by Pulse 100 100 Oximetry (%) 07/03/20 07/03/20 07/03/20 06:23 09:00 12:00 Temperature 97.9 F 97.5 F L Pulse Rate 91 H 99 H Respiratory 18 18 18 Rate Blood Pressure 152/84 128/75 O2 Sat by Pulse 98 99 99 Oximetry (%) 07/03/20 14:20 Temperature 98 F Pulse Rate 92 H Respiratory 20 Rate Blood Pressure 119/76 O2 Sat by Pulse 98 Oximetry (%) GENERAL: somnolent HEENT: Normal with no signs of trauma. No lid lag. Moist mucous membranes. LUNGS: lungs decreased breath sounds. poor effort by patient. No wheezes, and no crackles. No accessory muscle use. HEART: Regular rate and rhythm, normal S1 and S2. systolic murmur best heard along sternal border ABDOMEN: Soft, nontender, not distended, normoactive bowel sounds, no guarding, no rebound, no masses. UPPER EXTREMITIES: 2+ pulses, warm, well-perfused. no peripheral edema. LOWER EXTREMITIES: 2+ pulses, warm, well-perfused. No calf tenderness. No peripheral edema. Left BKA NEUROLOGICAL: unable to assess as patient is somnolent PSYCHIATRIC: unable to assess as patient is somnolent ect. SKIN: stage III ulcer on left buttock Laboratory Results - last 24 hr 06/29/20 07/02/20 07/02/20 13:00 17:28 21:36 WBC RBC Hgb Hct MCV MCH MCHC RDW Plt Count MPV Absolute Neuts (auto) Neutrophils % Lymphocytes % Monocytes % Eosinophils % Basophils % Nucleated RBC % Sodium Potassium Chloride Carbon Dioxide Anion Gap BUN Creatinine Est GFR (CKD-EPI)AfAm Est GFR (CKD-EPI)NonAf POC Glucometer 186 187 Random Glucose Calcium Phosphorus Magnesium Total Bilirubin AST ALT Alkaline Phosphatase Total Protein Albumin Blood Type AB POSITIVE Antibody Screen Negative Crossmatch See Detail 07/03/20 07/03/20 07/03/20 05:18 05:55 05:55 WBC 10.1 H RBC 2.88 L Hgb 8.2 L Hct 24.3 L MCV 84.4 MCH 28.5 MCHC 33.8 RDW 16.8 H Plt Count 199 MPV 8.8 Absolute Neuts (auto) 8.3 H Neutrophils % 81.6 Lymphocytes % 7.9 L D Monocytes % 6.3 Eosinophils % 3.7 D Basophils % 0.5 Nucleated RBC % 0 Sodium 149 H Potassium 3.3 L Chloride 108 H Carbon Dioxide 35 H Anion Gap 5 L BUN 7.7 Creatinine 0.8 Est GFR (CKD-EPI)AfAm 86.57 Est GFR (CKD-EPI)NonAf 74.70 POC Glucometer 205 Random Glucose 221 H Calcium 8.5 Phosphorus 2.0 L Magnesium 1.5 L Total Bilirubin 0.7 AST 15 ALT 11 L Alkaline Phosphatase 137 H Total Protein 6.4 Albumin 2.0 L Blood Type Antibody Screen Crossmatch 07/03/20 07/03/20 07/03/20 13:46 15:35 17:05 WBC 9.7 RBC 2.56 L Hgb 7.6 L Hct 22.2 L MCV 86.6 MCH 29.5 MCHC 34.1 RDW 16.7 H Plt Count 190 MPV 9.2 Absolute Neuts (auto) Neutrophils % Lymphocytes % Monocytes % Eosinophils % Basophils % Nucleated RBC % Sodium 146 H Potassium 3.5 Chloride 109 H Carbon Dioxide 33 H Anion Gap 4 L BUN 7.6 Creatinine 0.8 Est GFR (CKD-EPI)AfAm 86.57 Est GFR (CKD-EPI)NonAf 74.70 POC Glucometer Random Glucose 283 H Calcium 8.2 L Phosphorus Magnesium Total Bilirubin 0.4 AST 17 ALT 11 L Alkaline Phosphatase 133 H Total Protein 6.4 Albumin 2.0 L Blood Type Antibody Screen Crossmatch See Detail 07/03/20 17:10 WBC RBC Hgb Hct MCV MCH MCHC RDW Plt Count MPV Absolute Neuts (auto) Neutrophils % Lymphocytes % Monocytes % Eosinophils % Basophils % Nucleated RBC % Sodium Potassium Chloride Carbon Dioxide Anion Gap BUN Creatinine Est GFR (CKD-EPI)AfAm Est GFR (CKD-EPI)NonAf POC Glucometer 299 Random Glucose Calcium Phosphorus Magnesium Total Bilirubin AST ALT Alkaline Phosphatase Total Protein Albumin Blood Type Antibody Screen Crossmatch Active Medications Generic Name Dose Route Start Last Admin Trade Name Rehan PRN Reason Stop Dose Admin Amino Acids 30 ml 07/04/20 10:00 Prosource No Carb Liquid Pkt PO DAILY [facility] Amlodipine Besylate 10 mg 07/03/20 10:00 07/03/20 11:10 Norvasc - PO 10 mg DAILY [facility] Administration Ascorbic Acid 500 mg 07/03/20 10:00 07/03/20 11:11 Vitamin C - PO 500 mg DAILY [facility] Administration Atorvastatin Calcium 20 mg 07/02/20 22:00 07/02/20 21:34 Lipitor - PO Not Given HS [facility] Potassium Chloride 40 meq/ 1,020 mls @ 83 mls/hr 07/02/20 16:00 07/02/20 17:30 Dextrose IVPB 83 mls/hr ASDIR [facility] Administration Losartan Potassium 100 mg 07/03/20 10:00 07/03/20 11:11 Cozaar - PO 100 mg DAILY [facility] Administration Metoprolol Tartrate 5 mg 07/02/20 15:46 Lopressor Injection - IVPB Q4H PRN HYPERTENSION Metoprolol Tartrate 25 mg 07/02/20 22:00 07/03/20 11:10 Lopressor - PO 25 mg BID [facility] Administration Mirtazapine 7.5 mg 07/02/20 22:00 07/02/20 21:34 Remeron - PO Not Given HS [facility] Multivitamins/Minerals 1 each 07/03/20 10:00 07/03/20 11:10 Theragran-M PO 1 each DAILY [facility] Administration Pantoprazole Sodium 40 mg 07/03/20 10:00 07/03/20 11:10 Protonix Iv IVPUSH 40 mg DAILY [facility] Administration Polyethylene Glycol 17 gm 07/03/20 10:00 07/03/20 11:11 Miralax (For Daily Use) - PO Not Given DAILY [facility] Senna 2 tab 07/03/20 10:00 07/03/20 11:10 Senna - PO 2 tab DAILY [facility] Administration ASSESSMENT/PLAN: Patient is a 70 YO F w/ PMH HTN, HLD, CHF, suspected Amyloidosis, DM with diabetic foot ulcer on right foot & diabetic neuropathy, CKD stage 3a, iron de ficiency anemia, Left BKA, chronic osteomyelitis of Right foot, OA, history ESBL resistance, and stroke presented from shelter with bright red blood per rectum. Neuro somnolent. mental baseline per daughter: poor historian #H/o CVA -Fall/aspiration precaution -HOB elevated when feeding Cardio #HTN Losartan 100 mg PO daily, Amlodipine 10 mg PO daily, lopressor 25 PO BID, lopressor 5 mg IVPB Q4H PRN #HLD: atorvastatin (lipitor) 20 mg PO HS #CHF GI #Rectal bleed -CTAP: no signs of bleed -s/p 1 PRBC transfusion (06/30/20) -CTA (07/01/20) showed no gross bleeding. -colonoscopy (07/02): (1) old blood and clots found in the distal 1/2 of the colon, (2) moderate diverticulosis in proximal transverse colon and ascending colon, suspect resolved proximal colon diverticular bleed, (3) 7 mm sessil polyp in Right colon, (4) 4 mm sessile polp in cecum, (5) yellow bile from terminal ileum, (6) small internal hemorrhoids. Patient was moved to [facility] due to frequent PAC's and PVC's. -today, patient continues to pass clots in stool per nursing, and Hgb 7.6 -NPO in setting of GI bleed -GI consult appreciated. repeat CTA ordered to identify possible bleeding sources. -transfuse if Hgb <8 -protonix 40 mg IV push daily Heme #h/o iron deficiency anemia #Normocytic anemia currently 2/2 GI bleed -MCV in 80s -Hgb 7.6/22.2. 1 unit PRBC ordered by GI -transfuse if Hgb <8 Renal #CKD stage 3 A #Hypernatremia #Hypokalemia #Hydronephrosis per CTAP. -urology consult Endo BGM ISS ordered DVT PPX hold chemical AC in setting of GI bleed FEN monitor lytes NPO given GI bleed (except meds w/ small sips of water) ATTENDING PHYSICIAN STATEMENT I saw and evaluated the patient. I reviewed the resident's note and discussed the case with the resident. I agree with the resident's findings and plan as documented. SUBJECTIVE: OBJECTIVE: ASSESSMENT AND PLAN:
[2020-07-03] MEDS: MIRTAZAPINE 15 MG TABLET (FP) PO SCH (21:21)
[2020-07-03] MEDS: ATORVASTATIN CA 20 MG TABLET (FP) PO SCH (21:21)
[2020-07-03] MEDS: INSULIN SLIDING SCALE (NOVOLOG) 1 VIAL SQ SCH (21:58)
[2020-07-04 01:18] LABS: HEMATOCRIT 26.1 % (32.4-45.2); HEMOGLOBIN 8.9 GM/dL (10.7-15.3); MCHC 34.1 g/dl (32.0-36.0); MEAN CELL VOLUME 85.1 fl (80-96); MEAN PLT VOLUME 8.9 fl (7.5-11.1); PLATELET COUNT 187 K/MM3 (134-434); RBC 3.07 M/mm3 (3.60-5.2); RDW 16.6 % (11.6-15.6); WHITE BLOOD COUNT 9.2 K/mm3 (4.0-10.0)
[2020-07-04] MEDS: INSULIN SLIDING SCALE (NOVOLOG) 1 VIAL SQ SCH ×4 (06:02→22:57)
[2020-07-04 07:02] LABS: BASO % 0.5 % (0-2.0); LYMPH % 7.3 % (8-40); MCH 28.8 pg (25.7-33.7); MCHC 34.5 g/dl (32.0-36.0); MEAN CELL VOLUME 83.5 fl (80-96); MEAN PLT VOLUME 8.9 fl (7.5-11.1); MONO % 6.5 % (3.8-10.2); NEUT % 81.7 % (42.8-82.8); PLATELET COUNT 194 K/MM3 (134-434); RBC 3.12 M/mm3 (3.60-5.2); RDW 16.7 % (11.6-15.6); WHITE BLOOD COUNT 9.4 K/mm3 (4.0-10.0)
[2020-07-04 07:20] LABS: ALBUMIN 2.1 g/dl (3.4-5.0); BILIRUBIN,TOTAL 0.5 mg/dL (0.2-1); BLOOD UREA NITROGEN 6.8 mg/dL (7-18); CALCIUM 8.4 mg/dL (8.5-10.1); CREATININE 0.9 mg/dL (0.55-1.3); POTASSIUM 3.4 mmol/L (3.5-5.1); TOT PROT 6.6 g/dl (6.4-8.2)
[2020-07-04] MEDS: amLODIPine BESYLATE 10 MG TABLET (FP) PO SCH (09:16)
[2020-07-04] MEDS: METOPROLOL TARTRATE 25 MG TABLET (FP) PO SCH ×2 (09:16→21:38)
[2020-07-04] MEDS: PANTOPRAZOLE SODIUM 40 MG VIAL IVPUSH SCH (09:16)
[2020-07-04] MEDS: AMINO ACIDS/PROTEIN HYDROLYS 30 ML LIQUID.PKT PO SCH (09:16)
[2020-07-04] MEDS: MULTIVITAMINS THER W-MINERALS COMBO TABLET (FP) PO SCH (09:16)
[2020-07-04] MEDS: SENNOSIDES 8.6MG TABLET (FP) PO SCH (09:17)
[2020-07-04] MEDS: POLYETHYLENE GLYCOL 3350 119 GM BTL PO SCH (09:17)
[2020-07-04] MEDS: LOSARTAN POTASSIUM 50 MG TABLET PO SCH (09:17)
--- NOTE | 2020-07-04 09:49 | PN ---
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, Physician Chief Complaint: GI Bleed Anemia History of Present Illness: Previous notes and events reviewed awake and alert NAD noted with drop in Hg 8.2->7.6 07/03/20, s/p 1U PRBC transfusion and currently Hg 9.0 Abd CTA pending official read no reports of bloody stool from RN denies chest pain, dizziness or palpitations - Current Medication List Current Medications: Active Medications Amino Acids (Prosource No Carb Liquid Pkt) 30 ml PO DAILY [facility] Last Admin: 07/04/20 09:16 Dose: 30 ml Documented by: Amlodipine Besylate (Norvasc -) 10 mg PO DAILY [facility] Last Admin: 07/04/20 09:16 Dose: 10 mg Documented by: Ascorbic Acid (Vitamin C -) 500 mg PO DAILY [facility] Last Admin: 07/03/20 11:11 Dose: 500 mg Documented by: Atorvastatin Calcium (Lipitor -) 20 mg PO HS [facility] Last Admin: 07/03/20 21:21 Dose: Not Given Documented by: Potassium Chloride 40 meq/ (Dextrose) 1,020 mls @ 83 mls/hr IVPB ASDIR [facility] Last Admin: 07/03/20 16:00 Dose: 83 mls/hr Documented by: Insulin Aspart (Novolog Vial Sliding Scale -) 1 vial SQ ACHS [facility]; Protocol Last Admin: 07/04/20 06:02 Dose: Not Given Documented by: Losartan Potassium (Cozaar -) 100 mg PO DAILY [facility] Last Admin: 07/04/20 09:17 Dose: 100 mg Documented by: Metoprolol Tartrate (Lopressor Injection -) 5 mg IVPB Q4H PRN PRN Reason: HYPERTENSION Metoprolol Tartrate (Lopressor -) 25 mg PO BID [facility] Last Admin: 07/04/20 09:16 Dose: 25 mg Documented by: Mirtazapine (Remeron -) 7.5 mg PO HS [facility] Last Admin: 07/03/20 21:21 Dose: Not Given Documented by: Multivitamins/Minerals (Theragran-M) 1 each PO DAILY [facility] Last Admin: 07/04/20 09:16 Dose: 1 each Documented by: Pantoprazole Sodium (Protonix Iv) 40 mg IVPUSH DAILY [facility] Last Admin: 07/04/20 09:16 Dose: 40 mg Documented by: Polyethylene Glycol (Miralax (For Daily Use) -) 17 gm PO DAILY [facility] Last Admin: 07/04/20 09:17 Dose: 17 gm Documented by: Wandy (Senna -) 2 tab PO DAILY [facility] Last Admin: 07/04/20 09:17 Dose: 2 tab Documented by: - Objective Vital Signs: Vital Signs Temperature 97.9 F 07/04/20 04:52 Pulse Rate 92 H 07/04/20 04:52 Respiratory Rate 20 07/04/20 04:52 Blood Pressure 155/94 07/04/20 04:52 O2 Sat by Pulse Oximetry (%) 98 07/04/20 04:52 Constitutional: Yes: No Distress, Calm Eyes: Yes: Conjunctiva Clear HENT: Yes: Atraumatic Cardiovascular: Yes: Regular Rate and Rhythm Respiratory: Yes: Regular, Diminished Gastrointestinal: Yes: Normal Bowel Sounds, Soft, Other (nontender) Genitourinary: Yes: Lynn Present Musculoskeletal: Yes: Muscle Weakness Extremities: Yes: Amputation (L AKA) Edema: No Neurological: Yes: Alert, Pre-Existing Deficit Psychiatric: Yes: Alert Labs: CBC, BMP 07/04/20 05:40 07/04/20 05:40 INR, PTT INR 1.18 (0.83-1.09) H 06/29/20 13:00 Problem List - Problems (1) Hypernatremia Assessment/Plan: Nephrology on board NA 144 D5W + KCl monitor Na daily Code(s): E87.0 - HYPEROSMOLALITY AND HYPERNATREMIA (2) Hypokalemia Assessment/Plan: K 3.4 KCl 10mEq IVPB x 1 D5W + KCl at 83cc/hr replete as needed monitor K daily Code(s): E87.6 - HYPOKALEMIA (3) Rectal bleed Assessment/Plan: GI on board s/p colonoscopy on 07/02/20 with old blood and clots in distal colon, proximal c olon diverticulosis, no blood or clots in terminal ileum Hg 9.0 after 1U PRBC Abdominal CTA pending official read Surgery Consult placed monitor Hg daily transfuse for Hg < 7.0 to avoid fluid overload IF NO BLEEDING OVERNIGHT RESUME DIET IN AM Code(s): K62.5 - HEMORRHAGE OF ANUS AND RECTUM (4) Anemia Assessment/Plan: GI on board s/p colonoscopy on 07/02/20 with oldb lood and clots in distal colon, proximal colon diverticulosis, no blood or clots in terminal ileum Hg 9.0 after PRBC transfusion Multivitamin monitor Hg daily transfuse for Hg < 7.0 to avoid fluid overload Code(s): D64.9 - ANEMIA, UNSPECIFIED (5) CVA (cerebral vascular accident) Assessment/Plan: Fall precaution Puree diet with nectar thick liquids HOB elevated when feeding aspiration precaution Code(s): I63.9 - CEREBRAL INFARCTION, UNSPECIFIED (6) HTN (hypertension) Assessment/Plan: Losartan, Amlodipine, Metoprolol BID Low Na puree diet Code(s): I10 - ESSENTIAL (PRIMARY) HYPERTENSION (7) Hydronephrosis, right Assessment/Plan: FC Urology consult Code(s): N13.30 - UNSPECIFIED HYDRONEPHROSIS Assessment/Plan see problem list
--- NOTE | 2020-07-04 09:59 | PN ---
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, Physician History of Present Illness: 70 yr old female with a past medical history of low-normal systolic /diastolic CHF, ?infiltrative CMP most likely Amyloidosis (suspected) uncontrolled DM, diabetic foot ulcer on right foot, chronic osteomyelitis of right foot, diabetic neuropathy, left leg below knee amputation, renal dysfunction, OA, iron deficiency anemia, HLD, HTN, ESBL resistance and recent stroke who presented from rehab facility for bright red blood per rectum. - Current Medication List Current Medications: Active Medications Amino Acids (Prosource No Carb Liquid Pkt) 30 ml PO DAILY [facility] Last Admin: 07/04/20 09:16 Dose: 30 ml Documented by: Amlodipine Besylate (Norvasc -) 10 mg PO DAILY [facility] Last Admin: 07/04/20 09:16 Dose: 10 mg Documented by: Ascorbic Acid (Vitamin C -) 500 mg PO DAILY [facility] Last Admin: 07/03/20 11:11 Dose: 500 mg Documented by: Atorvastatin Calcium (Lipitor -) 20 mg PO HS [facility] Last Admin: 07/03/20 21:21 Dose: Not Given Documented by: Potassium Chloride 40 meq/ (Dextrose) 1,020 mls @ 83 mls/hr IVPB ASDIR [facility] Last Admin: 07/03/20 16:00 Dose: 83 mls/hr Documented by: Insulin Aspart (Novolog Vial Sliding Scale -) 1 vial SQ ACHS [facility]; Protocol Last Admin: 07/04/20 06:02 Dose: Not Given Documented by: Losartan Potassium (Cozaar -) 100 mg PO DAILY [facility] Last Admin: 07/04/20 09:17 Dose: 100 mg Documented by: Metoprolol Tartrate (Lopressor Injection -) 5 mg IVPB Q4H PRN PRN Reason: HYPERTENSION Metoprolol Tartrate (Lopressor -) 25 mg PO BID [facility] Last Admin: 07/04/20 09:16 Dose: 25 mg Documented by: Mirtazapine (Remeron -) 7.5 mg PO HS [facility] Last Admin: 07/03/20 21:21 Dose: Not Given Documented by: Multivitamins/Minerals (Theragran-M) 1 each PO DAILY [facility] Last Admin: 07/04/20 09:16 Dose: 1 each Documented by: Pantoprazole Sodium (Protonix Iv) 40 mg IVPUSH DAILY [facility] Last Admin: 07/04/20 09:16 Dose: 40 mg Documented by: Polyethylene Glycol (Miralax (For Daily Use) -) 17 gm PO DAILY [facility] Last Admin: 07/04/20 09:17 Dose: 17 gm Documented by: Senna (Senna -) 2 tab PO DAILY [facility] Last Admin: 07/04/20 09:17 Dose: 2 tab Documented by: - Objective Vital Signs: Vital Signs Temperature 97.9 F 07/04/20 04:52 Pulse Rate 92 H 07/04/20 04:52 Respiratory Rate 20 07/04/20 04:52 Blood Pressure 155/94 07/04/20 04:52 O2 Sat by Pulse Oximetry (%) 98 07/04/20 04:52 Eyes: Yes: WNL, Conjunctiva Clear, EOM Intact HENT: Yes: WNL, Atraumatic, Normocephalic Neck: Yes: WNL, Supple, Trachea Midline Cardiovascular: Yes: WNL, Regular Rate and Rhythm Respiratory: Yes: WNL, Regular, CTA Bilaterally Gastrointestinal: Yes: WNL, Normal Bowel Sounds Genitourinary: Yes: WNL Musculoskeletal: Yes: WNL Extremities: Yes: Amputation Edema: No Integumentary: Yes: WNL Neurological: Yes: WNL, Alert, Oriented ...Motor Strength: WNL Psychiatric: Yes: WNL Labs: CBC, BMP 07/04/20 05:40 07/04/20 05:40 INR, PTT INR 1.18 (0.83-1.09) H 06/29/20 13:00 Problem List - Problems (1) Bladder distension Code(s): N32.89 - OTHER SPECIFIED DISORDERS OF BLADDER (2) Bright red blood per rectum Code(s): K62.5 - HEMORRHAGE OF ANUS AND RECTUM (3) Hydronephrosis, right Code(s): N13.30 - UNSPECIFIED HYDRONEPHROSIS (4) Hypernatremia Code(s): E87.0 - HYPEROSMOLALITY AND HYPERNATREMIA (5) Hypokalemia Code(s): E87.6 - HYPOKALEMIA (6) Rectal bleed Code(s): K62.5 - HEMORRHAGE OF ANUS AND RECTUM (7) Acute on chronic renal failure Code(s): N17.9 - ACUTE KIDNEY FAILURE, UNSPECIFIED; N18.9 - CHRONIC KIDNEY DISEASE, UNSPECIFIED Qualifiers: Acute renal failure type: unspecified Chronic kidney disease stage: unspecified stage Qualified Code(s): N17.9 - Acute kidney failure, uns pecified; N18.9 - Chronic kidney disease, unspecified (8) Amputated left leg Code(s): S88.912A - COMPLETE TRAUMATIC AMPUTATION OF L LOW LEG, LEVEL UNSP, INIT (9) Amyloid disease Code(s): E85.9 - AMYLOIDOSIS, UNSPECIFIED (10) Anemia Code(s): D64.9 - ANEMIA, UNSPECIFIED (11) Bacteremia Code(s): R78.81 - BACTEREMIA (12) CHF (congestive heart failure) Code(s): I50.9 - HEART FAILURE, UNSPECIFIED Qualifiers: Heart failure type: unspecified Heart failure chronicity: unspecified Qualified Code(s): I50.9 - Heart failure, unspecified (13) CVA (cerebral vascular accident) Code(s): I63.9 - CEREBRAL INFARCTION, UNSPECIFIED (14) Diabetic foot ulcer Code(s): E11.621 - TYPE 2 DIABETES MELLITUS WITH FOOT ULCER; L97.509 - NON-NH ESSURE CHRONIC ULCER OTH PRT UNSP FOOT W UNSP SEVERITY Qualifiers: Diabetes mellitus type: type 1 Laterality: right (15) Elevated liver enzymes Code(s): R74.8 - ABNORMAL LEVELS OF OTHER SERUM ENZYMES (16) HTN (hypertension) Code(s): I10 - ESSENTIAL (PRIMARY) HYPERTENSION (17) Pleural effusion Code(s): J90 - PLEURAL EFFUSION, NOT ELSEWHERE CLASSIFIED (18) Right lower lobe pneumonia Code(s): J18.9 - PNEUMONIA, UNSPECIFIED ORGANISM Qualifiers: Pneumonia type: due to unspecified organism Qualified Code(s): J18.9 - Pneumonia, unspecified organism (19) Sepsis Code(s): A41.9 - SEPSIS, UNSPECIFIED ORGANISM (20) Septic shock Code(s): A41.9 - SEPSIS, UNSPECIFIED ORGANISM; R65.21 - SEVERE SEPSIS WITH SEPTIC SHOCK (21) Troponin I above reference range Code(s): R79.89 - OTHER SPECIFIED ABNORMAL FINDINGS OF BLOOD CHEMISTRY Assessment/Plan 70 yr old female with a past medical history of low-normal systolic /diastolic CHF, ?infiltrative CMP most likely Amyloidosis (suspected) uncontrolled DM, diabetic foot ulcer on right foot, chronic osteomyelitis of right foot, diabetic neuropathy, left leg below knee amputation, renal dysfunction, OA, iron deficiency anemia, HLD, HTN, ESBL resistance and recent stroke who presented from rehab facility for bright red blood per rectum. Severe anema Hypokalemia CMP r/o amyloidosis Plan; suplement K Keep HCT close to 30% DVT PLX Medical rx
[2020-07-04] MEDS: ASCORBIC ACID 500 MG TABLET (FP) PO SCH (10:19)
--- NOTE | 2020-07-04 11:43 | PN.GI ---
GI 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 Subjective: No acute events No overt bleeding reported overnight or this morning as of yet H/H improved after 1 U PRBC. Remains stable - Objective Vital Signs: Vital Signs Temperature 98.3 F 07/04/20 10:00 Pulse Rate 96 H 07/04/20 10:00 Respiratory Rate 18 07/04/20 10:00 Blood Pressure 144/85 07/04/20 10:00 O2 Sat by Pulse Oximetry (%) 95 07/04/20 10:00 Constitutional: Calm Eyes: No: Sclera Icterus Cardiovascular: Yes: Regular Rate and Rhythm Respiratory: Yes: Diminished (at bases bilaterally with poor insp. effort) Gastrointestinal Inspection: No: Distention ...Auscultate: Yes: Normoactive Bowel Sounds ...Palpate: Yes: Soft. No: Hepatomegaly, Splenomegaly, Tenderness ...Percussion: No: Tympanitic Extremities: Yes: Other (left BKA) Labs: CBC, BMP 07/04/20 05:40 07/04/20 05:40 INR, PTT INR 1.18 (0.83-1.09) H 06/29/20 13:00 Problem List - Problems (1) Rectal bleed Assessment/Plan: No further bleeding. remains hemodynamically stable CTA result pending Monitor H/H and for overt bleeding. Resume diet if no further bleeding through the day IV hydration Code(s): K62.5 - HEMORRHAGE OF ANUS AND RECTUM
[2020-07-04] MEDS ORDERED: KCL 10 MEQ IVPB 10 MEQ/100 ML INFUS.BAG IVPB SCH (12:15)
[2020-07-04] MEDS ORDERED: INSULIN (NOVOLOG) ASPART 100 UNITS/ML 10ML VIAL ONE (12:31)
--- NOTE | 2020-07-04 14:21 | PN ---
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 (short form) - Note 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: RENAL awake and alert comfortable Last Vital Signs Temp Pulse Resp BP Pulse Ox 98.3 F 96 H 18 144/85 95 07/04/20 10:00 07/04/20 10:00 07/04/20 10:00 07/04/20 10:00 07/04/20 10:00 lungs clear cvs s1s2 rr abd soft ext no edema neuro a+ox3 significant urine output in bag CBC, BMP 07/04/20 05:40 07/04/20 05:40 Current Medications Generic Name Dose Route Start Last Admin Trade Name Freq PRN Reason Stop Dose Admin Amino Acids 30 ml 07/04/20 10:00 07/04/20 09:16 Prosource No Carb Liquid Pkt PO 30 ml DAILY [facility] Administration Amlodipine Besylate 10 mg 07/03/20 10:00 07/04/20 09:16 Norvasc - PO 10 mg DAILY [facility] Administration Ascorbic Acid 500 mg 07/03/20 10:00 07/04/20 10:19 Vitamin C - PO 500 mg DAILY [facility] Administration Atorvastatin Calcium 20 mg 07/02/20 22:00 07/03/20 21:21 Lipitor - PO Not Given HS [facility] Potassium Chloride 40 meq/ 1,020 mls @ 83 mls/hr 07/02/20 16:00 07/03/20 16:00 Dextrose IVPB 83 mls/hr ASDIR [facility] Administration Insulin Aspart 1 vial 07/03/20 22:00 07/04/20 12:33 Novolog Vial Sliding Scale - SQ 2 units ACHS [facility] Administration Protocol Losartan Potassium 100 mg 07/03/20 10:00 07/04/20 09:17 Cozaar - PO 100 mg DAILY [facility] Administration Metoprolol Tartrate 5 mg 07/02/20 15:46 Lopressor Injection - IVPB Q4H PRN HYPERTENSION Metoprolol Tartrate 25 mg 07/02/20 22:00 07/04/20 09:16 Lopressor - PO 25 mg BID [facility] Administration Mirtazapine 7.5 mg 07/02/20 22:00 07/03/20 21:21 Remeron - PO Not Given HS [facility] Multivitamins/Minerals 1 each 07/03/20 10:00 07/04/20 09:16 Theragran-M PO 1 each DAILY [facility] Administration Pantoprazole Sodium 40 mg 07/03/20 10:00 07/04/20 09:16 Protonix Iv IVPUSH 40 mg DAILY [facility] Administration Polyethylene Glycol 17 gm 07/03/20 10:00 07/04/20 09:17 Miralax (For Daily Use) - PO 17 gm DAILY [facility] Administration Senna 2 tab 07/03/20 10:00 07/04/20 09:17 Senna - PO 2 tab DAILY [facility] Administration 70 year old woman with history of CKD, CHF, suspected amyloidosis, DM, diabetic foot ulcers, chronic osteomyliitis, diabetic neuropathy who presented with bright red blood per rectum and to have acute anemia and hypernatremia. 1. CKD stage 3a 2. Hypernatremia 3. Acute GI bleed/Anemia 4. Hx of HF with CXR consistent wit congestion 5. DM Renal function is stable. continue fluids monitor renal function bicarb is rising... monitor for contraction alkalosis MV
[2020-07-04] MEDS: POTASSIUM CHLORIDE 40 MEQ in DEXTROSE 5%-WATER - 1,000 ML IVPB SCH (16:00)
--- NOTE | 2020-07-04 19:00 | CONSULT ---
Consult Consult Specialty:: Surgery Reason for Consultation:: LGIB - History of Present Illness Chief Complaint: recurrent rectal bleeding History of Present Illness: 70 yr old female with a past medical history of low-normal systolic /diastolic CHF, ?infiltrative CMP most likely Amyloidosis (suspected) uncontrolled DM, diabetic foot ulcer on right foot, chronic osteomyelitis of right foot, diabetic neuropathy, left leg below knee amputation, renal dysfunction, OA, iron deficiency anemia, HLD, HTN, ESBL resistance and recent stroke who presented fro rehab facility for bright red blood per rectum. CTA OF A/P failed to show area of active bleeding. Colonoscopy showed old blood clots in distal colon and proximal diverticulosis. Had recurrence of rectal bleeding yesterday with drop in H/H requiring BT. Repeat CTA report pending but no rectal bleeding is noted today. 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 Cardio/Vascular: Yes: CHF, HTN, Hyperlipdemia ...: No Endocrine: Yes: Diabetes Mellitus (DM II) - Alcohol/Substance Use Hx Alcohol Use: No History of Substance Use: reports: None - Smoking History Smoking history: Never smoked Have you smoked in the past 12 months: No - Social History ADL: Support Services History of Recent Travel: No ([place]) Home Medications - Allergies Allergies/Adverse Reactions: Allergies Allergy/AdvReac Type Severity Reaction Status Date / Time No Known Allergies Allergy Verified 06/29/20 12:32 - Home Medications Home Medications: Ambulatory Orders Aspirin 81 mg PO DAILY 05/11/20 Acetaminophen Oral Solution [Tylenol Oral Solution -] 650 mg PO Q4H PRN soln.oral 06/09/20 Amlodipine Besylate [Norvasc -] 10 mg PO DAILY tablet 06/09/20 Atorvastatin Ca [Lipitor] 20 mg PO HS tablet 06/09/20 Famotidine [Pepcid -] 20 mg PO DAILY tablet 06/09/20 Ferrous Sulfate [Feosol] 325 mg PO BID ud 06/09/20 Heparin - 5,000 unit SQ BID vial 06/09/20 Insulin Sliding Scale [Novolog Vial Sliding Scale -] 1 vial SQ TID units 06/09/20 Losartan Potassium [Cozaar -] 100 mg PO DAILY tablet 06/09/20 Metoprolol Tartrate [Lopressor -] 25 mg PO BID tablet 06/09/20 Bisacodyl [Dulcolax] 10 mg RC DAILY 06/29/20 Collagenase Clostridium Hist. [Santyl -] 1 applic TP BID 06/29/20 Furosemide [Lasix] 20 mg PO DAILY 06/29/20 Insulin Detemir [Levemir Flextouch] 6 unit SQ AM 06/29/20 Mirtazapine 7.5 mg PO DAILY 06/29/20 Multivit with Minerals/Lutein [Pub Senior Vitamin Tablet] 1 each PO DAILY 06/29/20 Polyethylene Glycol 3350 [Miralax (For Daily Use) -] 17 gm PO DAILY 06/29/20 Senna [place] Extract [Senna] 176 mg PO DAILY 06/29/20 Vit C/Ascorb Sod/Multivit-Min [Emergen-C 500 mg Chewable Tab] 500 mg PO DAILY 06/29/20 Zinc 50 mg PO BID 06/29/20 Family Medical History Family History: Unremarkable Review of Systems Unable to obtain ROS, reason: s/p CVA Findings/Remarks: poorly interactive Physical Exam Vital Signs: Vital Signs Temperature 97.7 F 07/04/20 18:00 Pulse Rate 90 07/04/20 18:00 Respiratory Rate 07/04/20 18:00 Blood Pressure 128/70 07/04/20 18:00 O2 Sat by Pulse Oximetry (%) 95 07/04/20 10:00 Constitutional: Yes: No Distress HENT: Yes: Normocephalic Neck: Yes: Supple Cardiovascular: Yes: Regular Rate and Rhythm Respiratory: Yes: CTA Bilaterally Gastrointestinal: Yes: Soft, Tenderness (none) ...Rectal Exam: Yes: Deferred Labs: CBC, BMP 07/04/20 05:40 07/04/20 05:40 Imaging - Results Cat Scan: Report Reviewed, Image Reviewed Problem List - Problems (1) Bright red blood per rectum Assessment/Plan: LGIB likely from bleeding diverticulosis No evidence of active bleeding at this time monitor H/H consider IR consult if bleeding recurs little to no role for emergency subtotal colectomy will follow Code(s): K62.5 - HEMORRHAGE OF ANUS AND RECTUM
[2020-07-04] MEDS: MIRTAZAPINE 15 MG TABLET (FP) PO SCH (21:38)
[2020-07-04] MEDS: ATORVASTATIN CA 20 MG TABLET (FP) PO SCH (21:38)
[2020-07-05] MEDS: INSULIN SLIDING SCALE (NOVOLOG) 1 VIAL SQ SCH ×2 (06:00→12:26)
[2020-07-05 06:47] LABS: BASO % 0.6 % (0-2.0); EOS % 4.6 % (0-4.5); HEMATOCRIT 27.1 % (32.4-45.2); HEMOGLOBIN 9.2 GM/dL (10.7-15.3); LYMPH % 8.2 % (8-40); MCH 28.6 pg (25.7-33.7); MCHC 33.8 g/dl (32.0-36.0); MEAN CELL VOLUME 84.6 fl (80-96); MONO % 7.9 % (3.8-10.2); NEUT % 78.7 % (42.8-82.8); PLATELET COUNT 217 K/MM3 (134-434); RDW 16.3 % (11.6-15.6); WHITE BLOOD COUNT 9.3 K/mm3 (4.0-10.0)
[2020-07-05 07:23] LABS: ALBUMIN 2.1 g/dl (3.4-5.0); BLOOD UREA NITROGEN 5.7 mg/dL (7-18); CALCIUM 8.6 mg/dL (8.5-10.1); CREATININE 0.8 mg/dL (0.55-1.3); MAGNESIUM 1.6 mg/dL (1.8-2.4); POTASSIUM 3.6 mmol/L (3.5-5.1)
[2020-07-05 07:24] LABS: BILIRUBIN,TOTAL 0.9 mg/dL (0.2-1)
--- NOTE | 2020-07-05 08:51 | DS ---
Physical Examination Vital Signs: Vital Signs Temperature 97.5 F L 07/05/20 05:13 Pulse Rate 85 07/05/20 05:13 Respiratory Rate 20 07/05/20 05:13 Blood Pressure 144/90 07/05/20 05:13 O2 Sat by Pulse Oximetry (%) 96 07/05/20 05:13 Findings/Remarks: ADVANCING DIET, EGD DONE CLEARED BY Popeye Constitutional: Yes: No Distress Cardiovascular: Yes: Regular Rate and Rhythm Respiratory: Yes: CTA Bilaterally Gastrointestinal: Yes: Soft Renal/: Yes: Incontinence Extremities: Yes: Amputation, Deformity Labs: CBC, BMP 07/05/20 05:35 07/05/20 05:35 Discharge Summary Problems reviewed: Yes Reason For Visit: BRIGHT RED BLOOD PER RERECTUM CVA Current Active Problems Bladder distension (Acute) Bright red blood per rectum (Acute) Hydronephrosis, right (Acute) Hypernatremia (Acute) Hypokalemia (Acute) Rectal bleed (Acute) Procedures: Principal: EGD/CTA OF ABD Hospital Course: ADMITTED, GI BLEED, EGD DONE, SURGERY AND GI EVAL COMPLETE, DYSPHAGIA DIET AND ADVANCE OUTPATIENT Goals: ADVANCE DIET PER SPEECH/SWALLOW EVALUATION Condition: Fair - Instructions Diet, Activity, Other Instructions: DYSPHAGIA PUREE, THIN LIQUIDS NEEDS EVAL WITH SPEECH AND SWALLOE BRICK MOLDER HAND Referrals: Pillo Yuan MD [Primary Care Provider] - Disposition: [facility] FACILITY - Home Medications Comprehensive Discharge Medication List: Ambulatory Orders Aspirin 81 mg PO DAILY 05/11/20 Acetaminophen Oral Solution [Tylenol Oral Solution -] 650 mg PO Q4H PRN soln.oral 06/09/20 Amlodipine Besylate [Norvasc -] 10 mg PO DAILY tablet 06/09/20 Atorvastatin Ca [Lipitor] 20 mg PO HS tablet 06/09/20 Famotidine [Pepcid -] 20 mg PO DAILY tablet 06/09/20 Ferrous Sulfate [Feosol] 325 mg PO BID ud 06/09/20 Heparin - 5,000 unit SQ BID vial 06/09/20 Insulin Sliding Scale [Novolog Vial Sliding Scale -] 1 vial SQ TID units 06/09/20 Losartan Potassium [Cozaar -] 100 mg PO DAILY tablet 06/09/20 Metoprolol Tartrate [Lopressor -] 25 mg PO BID tablet 06/09/20 Bisacodyl [Dulcolax] 10 mg RC DAILY 06/29/20 Collagenase Clostridium Hist. [Santyl -] 1 applic TP BID 06/29/20 Furosemide [Lasix] 20 mg PO DAILY 06/29/20 Insulin Detemir [Levemir Flextouch] 6 unit SQ AM 06/29/20 Mirtazapine 7.5 mg PO DAILY 06/29/20 Multivit with Minerals/Lutein [Pub Multivitamin 50 Plus Tab] 1 each PO DAILY 06/29/20 Polyethylene Glycol 3350 [Miralax 119 gm Btl -] 17 gm PO DAILY 06/29/20 Senna [place] Extract [Senna] 176 mg PO DAILY 06/29/20 Vit C/Ascorb Sod/Multivit-Min [Emergen-C 500 mg Chewable Tab] 500 mg PO DAILY 06/29/20 Zinc 50 mg PO BID 06/29/20 Amino Acids/Protein Hydrolys [Prosource No Carb Liquid Pkt] 30 ml PO DAILY packet 07/05/20 Ascorbic Acid [Vitamin C -] 500 mg PO DAILY tablet 07/05/20 Insulin Sliding Scale [Novolog Vial Sliding Scale -] 1 vial SQ ACHS units 07/05/20 Pantoprazole Sodium [Protonix] 40 mg PO DAILY #30 tablet. 07/05/20
--- NOTE | 2020-07-05 09:14 | PN ---
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, Physician History of Present Illness: 70 yr old female with a past medical history of low-normal systolic /diastolic CHF, ?infiltrative CMP most likely Amyloidosis (suspected) uncontrolled DM, diabetic foot ulcer on right foot, chronic osteomyelitis of right foot, diabetic neuropathy, left leg below knee amputation, renal dysfunction, OA, iron deficiency anemia, HLD, HTN, ESBL resistance and recent stroke who presented from rehab facility for bright red blood per rectum. - Current Medication List Current Medications: Active Medications Amino Acids (Prosource No Carb Liquid Pkt) 30 ml PO DAILY [facility] Last Admin: 07/04/20 09:16 Dose: 30 ml Documented by: Amlodipine Besylate (Norvasc -) 10 mg PO DAILY [facility] Last Admin: 07/04/20 09:16 Dose: 10 mg Documented by: Ascorbic Acid (Vitamin C -) 500 mg PO DAILY [facility] Last Admin: 07/04/20 10:19 Dose: 500 mg Documented by: Atorvastatin Calcium (Lipitor -) 20 mg PO HS [facility] Last Admin: 07/04/20 21:38 Dose: Not Given Documented by: Potassium Chloride 40 meq/ (Dextrose) 1,020 mls @ 83 mls/hr IVPB ASDIR [facility] Last Admin: 07/04/20 16:00 Dose: 83 mls/hr Documented by: Insulin Aspart (Novolog Vial Sliding Scale -) 1 vial SQ ACHS [facility]; Protocol Last Admin: 07/05/20 06:00 Dose: 2 units Documented by: Losartan Potassium (Cozaar -) 100 mg PO DAILY [facility] Last Admin: 07/04/20 09:17 Dose: 100 mg Documented by: Metoprolol Tartrate (Lopressor Injection -) 5 mg IVPB Q4H PRN PRN Reason: HYPERTENSION Metoprolol Tartrate (Lopressor -) 25 mg PO BID [facility] Last Admin: 07/04/20 21:38 Dose: Not Given Documented by: Mirtazapine (Remeron -) 7.5 mg PO HS [facility] Last Admin: 07/04/20 21:38 Dose: Not Given Documented by: Multivitamins/Minerals (Theragran-M) 1 each PO DAILY [facility] Last Admin: 07/04/20 09:16 Dose: 1 each Documented by: Pantoprazole Sodium (Protonix Iv) 40 mg IVPUSH DAILY [facility] Last Admin: 07/04/20 09:16 Dose: 40 mg Documented by: Polyethylene Glycol (Miralax (For Daily Use) -) 17 gm PO DAILY [facility] Last Admin: 07/04/20 09:17 Dose: 17 gm Documented by: Senna (Senna -) 2 tab PO DAILY [facility] Last Admin: 07/04/20 09:17 Dose: 2 tab Documented by: - Objective Vital Signs: Vital Signs Temperature 97.5 F L 07/05/20 05:13 Pulse Rate 85 07/05/20 05:13 Respiratory Rate 20 07/05/20 05:13 Blood Pressure 144/90 07/05/20 05:13 O2 Sat by Pulse Oximetry (%) 96 07/05/20 05:13 Eyes: Yes: WNL, Conjunctiva Clear, EOM Intact HENT: Yes: WNL, Atraumatic, Normocephalic Neck: Yes: WNL, Supple, Trachea Midline Cardiovascular: Yes: WNL, Regular Rate and Rhythm Respiratory: Yes: WNL, Regular, CTA Bilaterally Gastrointestinal: Yes: WNL, Normal Bowel Sounds Genitourinary: Yes: WNL Musculoskeletal: Yes: WNL Extremities: Yes: Amputation Edema: No Integumentary: Yes: WNL Neurological: Yes: WNL, Alert, Oriented ...Motor Strength: WNL Psychiatric: Yes: WNL Labs: CBC, BMP 07/05/20 05:35 07/05/20 05:35 INR, PTT INR 1.18 (0.83-1.09) H 06/29/20 13:00 Problem List - Problems (1) Bladder distension Code(s): N32.89 - OTHER SPECIFIED DISORDERS OF BLADDER (2) Bright red blood per rectum Code(s): K62.5 - HEMORRHAGE OF ANUS AND RECTUM (3) Hydronephrosis, right Code(s): N13.30 - UNSPECIFIED HYDRONEPHROSIS (4) Hypernatremia Code(s): E87.0 - HYPEROSMOLALITY AND HYPERNATREMIA (5) Hypokalemia Code(s): E87.6 - HYPOKALEMIA (6) Rectal bleed Code(s): K62.5 - HEMORRHAGE OF ANUS AND RECTUM (7) Acute on chronic renal failure Code(s): N17.9 - ACUTE KIDNEY FAILURE, UNSPECIFIED; N18.9 - CHRONIC KIDNEY DISEASE, UNSPECIFIED Qualifiers: Acute renal failure type: unspecified Chronic kidney disease stage: unspecified stage Qualified Code(s): N17.9 - Acute kidney failure, u nspecified; N18.9 - Chronic kidney disease, unspecified (8) Amputated left leg Code(s): S88.912A - COMPLETE TRAUMATIC AMPUTATION OF L LOW LEG, LEVEL UNSP, INIT (9) Amyloid disease Code(s): E85.9 - AMYLOIDOSIS, UNSPECIFIED (10) Anemia Code(s): D64.9 - ANEMIA, UNSPECIFIED (11) Bacteremia Code(s): R78.81 - BACTEREMIA (12) CHF (congestive heart failure) Code(s): I50.9 - HEART FAILURE, UNSPECIFIED Qualifiers: Heart failure type: unspecified Heart failure chronicity: unspecified Qualified Code(s): I50.9 - Heart failure, unspecified (13) CVA (cerebral vascular accident) Code(s): I63.9 - CEREBRAL INFARCTION, UNSPECIFIED (14) Diabetic foot ulcer Code(s): E11.621 - TYPE 2 DIABETES MELLITUS WITH FOOT ULCER; L97.509 - NON- PRESSURE CHRONIC ULCER OTH PRT UNSP FOOT W UNSP SEVERITY Qualifiers: Diabetes mellitus type: type 1 Laterality: right (15) Elevated liver enzymes Code(s): R74.8 - ABNORMAL LEVELS OF OTHER SERUM ENZYMES (16) HTN (hypertension) Code(s): I10 - ESSENTIAL (PRIMARY) HYPERTENSION (17) Pleural effusion Code(s): J90 - PLEURAL EFFUSION, NOT ELSEWHERE CLASSIFIED (18) Right lower lobe pneumonia Code(s): J18.9 - PNEUMONIA, UNSPECIFIED ORGANISM Qualifiers: Pneumonia type: due to unspecified organism Qualified Code(s): J18.9 - Pneumonia, unspecified organism (19) Sepsis Code(s): A41.9 - SEPSIS, UNSPECIFIED ORGANISM (20) Septic shock Code(s): A41.9 - SEPSIS, UNSPECIFIED ORGANISM; R65.21 - SEVERE SEPSIS WITH SEPTIC SHOCK (21) Troponin I above reference range Code(s): R79.89 - OTHER SPECIFIED ABNORMAL FINDINGS OF BLOOD CHEMISTRY Assessment/Plan 70 yr old female with a past medical history of low-normal systolic /diastolic CHF, ?infiltrative CMP most likely Amyloidosis (suspected) uncontrolled DM, diabetic foot ulcer on right foot, chronic osteomyelitis of right foot, diabetic neuropathy, left leg below knee amputation, renal dysfunction, OA, iron deficiency anemia, HLD, HTN, ESBL resistance and recent stroke who presented from rehab facility for bright red blood per rectum. Severe anema Hypokalemia CMP r/o amyloidosis Plan; suplement K Keep HCT close to 30% DVT PLX Medical rx
--- NOTE | 2020-07-05 09:38 | CONSULT ---
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 Cardiovascular: Yes: CHF, HTN, Hyperlipdemia ...: No Endocrine: Yes: Diabetes Mellitus (DM II) - Smoking History Smoking history: Never smoked Have you smoked in the past 12 months: No - Alcohol/Substance Use Hx Alcohol Use: No History of Substance Use: reports: None - Social History ADL: Support Services History of Recent Travel: No ([place]) History - Admission Reason For Visit: BRIGHT RED BLOOD PER RERECTUM CVA - Hearing Hearing Aide: No Speech Evaluation - Communication Primary Language: BENINESE Communication: Yes: Simple Responses (responsive to yes/no questions and can tell her name) Oral Expression Ability: Yes: Moderate Impairment (secondary to dementia) - Speech Production Dysarthria: Yes: Hypokinetic Apraxia: No Able to Make Needs Known: Yes: Mildly Impaired Intelligibility: Yes: WNL - Speech Characteristics Voice Loudness: Normal Voice Pitch: Yes: Normal Voice Phonatory-based Quality: Yes: Normal Speech Pattern: Impaired (slow response requires multiple verbal prompts) Articulation: Yes: Precise Rate of Speech: Too Slow Voice Comment: informally voice is WNL - Language/Auditory Comprehension Follows: Yes: 1 Stage Simple Commands Observation: Able to respond to yes/no queries: Yes, Yes/No Confusion: Yes, Comprehends Conversational Speech: Yes, Benefits from Slow Speech: Yes, Benefits from Repetiton: Yes, Benefits from Increased Volume of Speech: Yes - Language/Verbal Expression Able to Respond to Simple Queries: Yes: WNL Able to Communicate Wants and Needs: Yes: Moderately Impaired Functional Communication Status: Yes: Moderately Impaired Aware of Errors: No Attempts to Correct Errors: No Use of Gestures: Yes Written Expression: not examined Oral Expression: simple responses 3-6 word sentences. Reading Comprehension: not examined Calculations: not examined - Memory/Perception buttermaker helper Memory: Yes: Moderately Impaired Short Term Memory: Yes: Moderately Impaired - Swallow Evaluation/Bedside Assessment Current Nutritional Intake: NPO (pending swallow eval) Oral Secretions: Yes: Dryness Tracheostomy Present: No Patient on Ventilator: No Dentition: Yes: Adequate Facial Symmetry at Rest: Symmetrical Facial Symmetry on Retraction: Symmetrical Facial Movement: Controlled Sensation: Normal Jaw Position: Closed at Rest Against Resistance Opening: Normal Against Resistance Closing: Normal Lips, Comment: unable to formally evaluate secondary to mental status; appears WNL Lingual Movement: Normal Lingual Speed of Movement: Reduced Lingual Movement Strgth Against Opposition: Normal Lingual Movement Characteristics: Normal Lingual Comment: unable to formally evaluate secondary to mental status; appears WNL Soft Palate Description: Normal Color Hard Palate Description: Normal Color Gag Reflex: Strong Bite Reflex: Present Velopharyngeal Movement: Normal Laryngeal Elevation: WFL Laryngeal Movement: Able to Palpate Needs Assistance: Yes Rate of Intake: Slow/Holding Bolus Size: WFL Sensation: Bite Reflex Labial Seal: WFL Chewing: WFL Oral Prep Time: WFL A-P Transit: Impaired (delayed) Pocketing: None Timing of Swallow: WFL Coughing/Throat Clear: No Change in Voice: No Other Findings/Remarks: 70 yo female seen at bedside for speech and swallow evaluation to r/o dysphagia. Pt is minimally verbal, A&Ox1 cooperative. PMHX is CHF, uncontrolled DM, diabetic foot, left leg amputation below knee, renal dysfunction, OA HLD HTN ESBL. CC: gi bleed? Current diet is NPO scheduled for discharge back to [place]. Pt given PO trials of pureed, and chewable soft solids with total assistance revealed good acceptance, delayed bolus formation with soft solids and A P transport with a timely pharyngeal swallow (1-2 second average). No change in voicing or respiration after the swallow. Pt given po trials of ice chips via spoon, thin, and thicken liquids via cup with total assistance revealed adequate acceptance and labial containment and bolus control. Timely pharyngeal swallow (1-2 second average). No change in voicing or respiration after the swallow. Limited study. Recommendations - Speech Evaluation, Impression/Plan Impression: 70 yo female is able to tolerate puree and mechanical soft moisten solids and thin liquids at this time. No evidence of dysphagia or aspiration on any consistency given during this evaluation. Speech and language is reduced secondary to dementia status. Long-Term Goals: tolerate the least restrictive diet w/o s/s of aspiration. Short Term Goals: tolerate pureed solids with thicken liquids without s/s of aspiration. - Disposition Discharge to: Long Term Facility - Dysphagia Impressions/Plan Swallowing Skills: Impaired Dysphagia Impressions: Mild Impairment (delayed bolus formation with soft solids), Risk of Aspiration *Silent aspiration: cannot be R/O at bedside Dysphagia Treatment Plan: 1/2 tsp. at a time, Elevate HOB during feed, Other (alternate liquids for every 2-3 bites of solids.) Dysphagia Evaluation Summary: Trial po intake of pureed solids with thicken liquids at tolerated. Pt did tolerate thin but limited study. Observe standard aspiration precautions. Provide oral care before and after meals. Medications can be given crushed with applesauce. Results given verbally to charge master analyst and PCP via chart. PAPER SAMPLE CLERK to follow up for diet tolerance as needed. - Recommendations Diet Consistency: Dysphagia Pureed Medication Administration: Crushed with applesauce Liquids: [place] Thick
[2020-07-05] MEDS: AMINO ACIDS/PROTEIN HYDROLYS 30 ML LIQUID.PKT PO SCH (10:51)
[2020-07-05] MEDS: PANTOPRAZOLE SODIUM 40 MG VIAL IVPUSH SCH (10:51)
[2020-07-05] MEDS: amLODIPine BESYLATE 10 MG TABLET (FP) PO SCH (10:52)
[2020-07-05] MEDS: POLYETHYLENE GLYCOL 3350 119 GM BTL PO SCH (10:52)
[2020-07-05] MEDS: LOSARTAN POTASSIUM 50 MG TABLET PO SCH (10:52)
[2020-07-05] MEDS: METOPROLOL TARTRATE 25 MG TABLET (FP) PO SCH (10:52)
[2020-07-05] MEDS: ASCORBIC ACID 500 MG TABLET (FP) PO SCH (10:52)
[2020-07-05] MEDS: MULTIVITAMINS THER W-MINERALS COMBO TABLET (FP) PO SCH (10:53)
[2020-07-05] MEDS ORDERED: MAGNESIUM SULF 50% (8.12 MEQ/2 ML-1 GM VIAL) IVPB ONE (10:53)
[2020-07-05] MEDS: SENNOSIDES 8.6MG TABLET (FP) PO SCH (10:53)
--- NOTE | 2020-07-05 10:56 | PN ---
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 (short form) - Note 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: DISCUSSED THE CTA OF ABDOMEN AND PELVIS WITH RADIOLOGIST INCIDENT COMMANDER POSSIBLE LEFT LUNG CONSOLIDATION SEEN WITH POSSIBLE ASPIRATION WILL HAVE PULMONARY EVAL PATIENT PRIOR TO DISCHARGE IF NEEDED WILL DC THE DISCHARGE AND START NEBULIZERS/ANTIBIOTICS. WILL DEFER TO PULMONARY FOR THIS. OTHERWISE GI AND SPEACH/SWALLOW HAVE CLEARED PATIENT FOR DISCHARGE
[2020-07-05] MEDS ORDERED: MAGNESIUM SULF 50% (8.12 MEQ/2 ML-1 GM VIAL) ONE (11:22)
--- NOTE | 2020-07-05 11:53 | CON.PULM ---
Consult Consult Specialty:: PULMONARY Referred by:: Dr Vargas Reason for Consultation:: abnormal CT finding - History of Present Illness Chief Complaint: GI bleed History of Present Illness: 70yo female with h/o HTN, DM, hyperlipidemia, CKD, s/p L BKA, suspected amyloidosis, CHF who was admitted with GI bleeding. Found to have multiple polyps and diverticulosis. Currently no further bleeding. Pulmonary consulted as abdominal imaging showed right basilar infiltrate vs atelectasis. Pt denies shortness of breath, cough. No fevers recorded and recent bloodwork without leukocytosis. 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 Cardio/Vascular: Yes: CHF, HTN, Hyperlipdemia ...: No Endocrine: Yes: Diabetes Mellitus (DM II) - Alcohol/Substance Use Hx Alcohol Use: No History of Substance Use: reports: None - Smoking History Smoking history: Never smoked Have you smoked in the past 12 months: No - Social History ADL: Support Services History of Recent Travel: No ([place]) Home Medications - Allergies Allergies/Adverse Reactions: Allergies Allergy/AdvReac Type Severity Reaction Status Date / Time No Known Allergies Allergy Verified 06/29/20 12:32 - Home Medications Home Medications: Ambulatory Orders Aspirin 81 mg PO DAILY 05/11/20 Acetaminophen Oral Solution [Tylenol Oral Solution -] 650 mg PO Q4H PRN soln.oral 06/09/20 Amlodipine Besylate [Norvasc -] 10 mg PO DAILY tablet 06/09/20 Atorvastatin Ca [Lipitor] 20 mg PO HS tablet 06/09/20 Famotidine [Pepcid -] 20 mg PO DAILY tablet 06/09/20 Ferrous Sulfate [Feosol] 325 mg PO BID ud 06/09/20 Heparin - 5,000 unit SQ BID vial 06/09/20 Insulin Sliding Scale [Novolog Vial Sliding Scale -] 1 vial SQ TID units 06/09/20 Losartan Potassium [Cozaar -] 100 mg PO DAILY tablet 06/09/20 Metoprolol Tartrate [Lopressor -] 25 mg PO BID tablet 06/09/20 Bisacodyl [Dulcolax] 10 mg RC DAILY 06/29/20 Collagenase Clostridium Hist. [Santyl -] 1 applic TP BID 06/29/20 Furosemide [Lasix] 20 mg PO DAILY 06/29/20 Insulin Detemir [Levemir Flextouch] 6 unit SQ AM 06/29/20 Mirtazapine 7.5 mg PO DAILY 06/29/20 Multivit with Minerals/Lutein [Pub Multivitamin 50 Plus Tab] 1 each PO DAILY 06/29/20 Polyethylene Glycol 3350 [Miralax 119 gm Btl -] 17 gm PO DAILY 06/29/20 Senna Snead Extract [Senna] 176 mg PO DAILY 06/29/20 Vit C/Ascorb Sod/Multivit-Min [Emergen-C 500 mg Chewable Tab] 500 mg PO DAILY 06/29/20 Zinc 50 mg PO BID 06/29/20 Amino Acids/Protein Hydrolys [Prosource No Carb Liquid Pkt] 30 ml PO DAILY packet 07/05/20 Ascorbic Acid [Vitamin C -] 500 mg PO DAILY tablet 07/05/20 Insulin Sliding Scale [Novolog Vial Sliding Scale -] 1 vial SQ ACHS units 07/05/20 Pantoprazole Sodium [Protonix] 40 mg PO DAILY #30 tablet. 07/05/20 Family Medical History Family History: Unremarkable Review of Systems - Review of Systems Constitutional: denies: Chills, Fever Eyes: denies: Recent Change in Vision HENT: denies: Nasal Congestion, Throat Pain Neck: denies: Stiffness, Tenderness Cardiovascular: denies: Chest Pain, Shortness of Breath Respiratory: denies: Cough, Wheezing Gastrointestinal: denies: Abdominal Pain, Nausea, Vomiting Genitourinary: denies: Dysuria, Hematuria Neurological: denies: Headache Endocrine: denies: Unexplained Weight Loss Physical Exam Vital Sings: Vital Signs Temperature 97.5 F L 07/05/20 05:13 Pulse Rate 85 07/05/20 05:13 Respiratory Rate 20 07/05/20 05:13 Blood Pressure 144/90 07/05/20 05:13 O2 Sat by Pulse Oximetry (%) 96 07/05/20 05:13 Constitutional: Yes: Calm Eyes: Yes: Conjunctiva Clear, EOM Intact HENT: Yes: Atraumatic, Normocephalic Neck: Yes: Supple, Trachea Midline Cardiovascular: Yes: Regular Rate and Rhythm Respiratory: Yes: Diminished (at bases) ...Clubbing: No Gastrointestinal: Yes: Normal Bowel Sounds, Soft. No: Tenderness Extremities: Yes: Amputation (L BKA) Edema: No Labs: CBC, BMP 07/05/20 05:35 07/05/20 05:35 Imaging - Results Chest X-ray: Report Reviewed, Image Reviewed Cat Scan: Report Reviewed, Image Reviewed (right basilar atelectasis) Assessment/Plan GI Bleed resolved Diverticulosis Acute Blood Loss Anemia Atelectasis CHF HTN DM Hyperlipidemia CKD s/p L BKA - pt afebrile and without leukocytosis, denies any respiratory complaints at this time - can get outpt f/u of chest imaging - no pulmonary contraindications for discharge Thank you for this consult Trae Matthews MD
--- NOTE | 2020-07-05 12:13 | PN ---
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, Physician History of Present Illness: Seen and examined at the bedside awake and alert awake and alert offers no acute complaints no sob, cp, fever, or chills - Current Medication List Current Medications: Active Medications Amino Acids (Prosource No Carb Liquid Pkt) 30 ml PO DAILY [facility] Last Admin: 07/05/20 10:51 Dose: 30 ml Documented by: Amlodipine Besylate (Norvasc -) 10 mg PO DAILY [facility] Last Admin: 07/05/20 10:52 Dose: 10 mg Documented by: Ascorbic Acid (Vitamin C -) 500 mg PO DAILY [facility] Last Admin: 07/05/20 10:52 Dose: 500 mg Documented by: Atorvastatin Calcium (Lipitor -) 20 mg PO HS [facility] Last Admin: 07/04/20 21:38 Dose: Not Given Documented by: Insulin Aspart (Novolog Vial Sliding Scale -) 1 vial SQ [facility]; Protocol Last Admin: 07/05/20 06:00 Dose: 2 units Documented by: Losartan Potassium (Cozaar -) 100 mg PO DAILY [facility] Last Admin: 07/05/20 10:52 Dose: 100 mg Documented by: Metoprolol Tartrate (Lopressor Injection -) 5 mg IVPB Q4H PRN PRN Reason: HYPERTENSION Metoprolol Tartrate (Lopressor -) 25 mg PO BID [facility] Last Admin: 07/05/20 10:52 Dose: 25 mg Documented by: Mirtazapine (Remeron -) 7.5 mg PO HS [facility] Last Admin: 07/04/20 21:38 Dose: Not Given Documented by: Multivitamins/Minerals (Theragran-M) 1 each PO DAILY [facility] Last Admin: 07/05/20 10:53 Dose: 1 each Documented by: Pantoprazole Sodium (Protonix Iv) 40 mg IVPUSH DAILY [facility] Last Admin: 07/05/20 10:51 Dose: 40 mg Documented by: Polyethylene Glycol (Miralax (For Daily Use) -) 17 gm PO DAILY [facility] Last Admin: 07/05/20 10:52 Dose: 17 gm Documented by: Senna (Senna -) 2 tab PO DAILY [facility] Last Admin: 07/05/20 10:53 Dose: 2 tab Documented by: - Objective Vital Signs: Vital Signs Temperature 97.5 F L 07/05/20 05:13 Pulse Rate 85 07/05/20 05:13 Respiratory Rate 20 07/05/20 05:13 Blood Pressure 144/90 07/05/20 05:13 O2 Sat by Pulse Oximetry (%) 96 07/05/20 05:13 Constitutional: Yes: No Distress, Calm Neck: Yes: Supple Cardiovascular: Yes: Regular Rate and Rhythm Respiratory: Yes: Regular, CTA Bilaterally Gastrointestinal: Yes: Soft Extremities: No: Cyanosis Edema: No Neurological: Yes: Alert Labs: CBC, BMP 07/05/20 05:35 07/05/20 05:35 INR, PTT INR 1.18 (0.83-1.09) H 06/29/20 13:00 Assessment/Plan 70 year old woman with history of CKD, CHF, suspected amyloidosis, DM, diabetic foot ulcers, chronic osteomyliitis, diabetic neuropathy who presented with bright red blood per rectum and to have acute anemia and hypernatremia. 1. CKD stage 3a 2. Hypernatremia (water deficit 4.6L) 3. Acute GI bleed/Anemia 4. Hx of HF with CXR consistent wit congestion 5. DM Renal function is stable. Hypernatremia improved, can discontinue IV fluids Cr stable s/p CTA. PRN lasix IVP (20 or 40mg) as needed if there is any sign of congestion or lower extremity edema. Trend H/H s/p Endoscpy, GI following. Pt likely will need maintenance diuretics on discharge given history of HF Joaquín Berry DO
[2020-07-05 15:31] VITALS: BP 137/89; PULSE 88; TEMP 98
== END 2020-07-05 17:56 | DRG 378 ==
LOC: JER 12:17 → JERBED 17:10 → J7W 06-30 02:30 → J4W 07-02 16:09
PROVIDERS: ATTEND Family Medicine
PROC: 0DJD8ZZ Inspection of Lower Intestinal Tract, Via Natural or Artificial Opening Endoscopic (ICD-10-PCS; principal; 2020-07-02 12:30)
PROC: 30233N1 Transfusion of Nonautologous Red Blood Cells into Peripheral Vein, Percutaneous Approach (ICD-10-PCS; 2020-07-03)
DX: K57.91 Diverticulosis of intestine, part unspecified, without perforation or abscess with bleeding (principal); I50.42 Chronic combined systolic (congestive) and diastolic (congestive) heart failure; E85.9 Amyloidosis, unspecified; M86.60 Other chronic osteomyelitis, unspecified site; I13.0 Hypertensive heart and chronic kidney disease with heart failure and stage 1 through stage 4 chronic kidney disease, or unspecified chronic kidney disease; N13.30 Unspecified hydronephrosis; E87.0 Hyperosmolality and hypernatremia; E11.65 Type 2 diabetes mellitus with hyperglycemia; E11.621 Type 2 diabetes mellitus with foot ulcer; E11.69 Type 2 diabetes mellitus with other specified complication; E11.40 Type 2 diabetes mellitus with diabetic neuropathy, unspecified; E11.22 Type 2 diabetes mellitus with diabetic chronic kidney disease; M19.90 Unspecified osteoarthritis, unspecified site; D50.9 Iron deficiency anemia, unspecified; N18.3 Chronic kidney disease, stage 3 (moderate); E78.5 Hyperlipidemia, unspecified; K59.09 Other constipation; E86.0 Dehydration; K64.8 Other hemorrhoids; D12.0 Benign neoplasm of cecum
CPT/HCPCS: 36415; 36430; 36511; 71045-TC-FY; 74174-TC; 74176-TC; 80048; 80053; 81003; 82272; 82962; 83605; 83735; 84100; 85025; 85027; 85610; 85730; 86850; 86900; 86901; 86922; 93005; 93010; 99285-25; P9038; P9058; Q9967; U0003

== ENCOUNTER 2020-10-04 14:21 | Inpatient (IN) | payer OTHER ==
[2020-10-04] MEDS ORDERED: VANCOMYCIN 1 GM in D5W (PRE-DOCKED) 1,000 MG/250 ML IVPB ONE (15:01)
[2020-10-04] MEDS ORDERED: PIPERACILLIN/TAZOB 4.5 GM 4.5 GM in DEXTROSE 5%-WATER 100 ML IVPB ONE (15:01)
[2020-10-04] MEDS ORDERED: VANCOMYCIN 1 GRAM (PRE-DOCKED) 1,000 MG/250 ML BAG IVPB ONE (15:13)
[2020-10-04] MEDS ORDERED: PIPERACILLIN/TAZOB 4.5 GM 4.5 GM/100 ML BAG IVPB ONE (15:13)
[2020-10-04] MEDS ORDERED: DEXTROSE 50%-WATER 25 GM/50 ML DISP.SYRIN ONE (15:40)
[2020-10-04] MEDS ORDERED: DEXTROSE 50%-WATER - 25 GM/50 ML VIAL IVPUSH ONE (15:41)
[2020-10-04 16:12] LABS: BASO % 0.3 % (0-2.0); EOS % 0.3 % (0-4.5); HEMATOCRIT 41.9 % (32.4-45.2); HEMOGLOBIN 13.2 GM/dL (10.7-15.3); LYMPH % 8.7 % (8-40); MCH 29.3 pg (25.7-33.7); MCHC 31.5 g/dl (32.0-36.0); MEAN CELL VOLUME 93.1 fl (80-96); MEAN PLT VOLUME 8.3 fl (7.5-11.1); MONO % 2.8 % (3.8-10.2); NEUT % 87.9 % (42.8-82.8); PLATELET COUNT 383 K/MM3 (134-434); WHITE BLOOD COUNT 11.3 K/mm3 (4.0-10.0)
[2020-10-04 16:31] LABS: INR 1.12 (0.83-1.09); PROTHROMBIN TIME (PATIENT) 13.5 SEC (9.7-13.0)
[2020-10-04 16:34] LABS: ACTIVATED PTT 29.7 SECONDS (25.2-36.5)
[2020-10-04 16:39] LABS: CALCIUM 9.2 mg/dL (8.5-10.1)
[2020-10-04 16:40] LABS: ALBUMIN 2.4 g/dl (3.4-5.0); BLOOD UREA NITROGEN 78.5 mg/dL (7-18)
[2020-10-04 16:43] LABS: CREATININE 1.7 mg/dL (0.55-1.3)
[2020-10-04 16:44] LABS: BILIRUBIN,TOTAL 0.3 mg/dL (0.2-1); TOT PROT 9.8 g/dl (6.4-8.2)
[2020-10-04] MEDS ORDERED: SODIUM CHLORIDE 1,000 ML IV SCH (17:15)
[2020-10-04] MEDS ORDERED: LACTATED RINGERS SOLUTION 1000 ML INFUS.BAG IV ONE (17:36)
[2020-10-04 21:25] LABS: CREATININE 1.9 mg/dL (0.55-1.3)
[2020-10-04] MEDS ORDERED: MAGNESIUM SULF 50% (8.12 MEQ/2 ML-1 GM VIAL) IVPB ONE (21:48)
[2020-10-04] MEDS ORDERED: SODIUM CHLORIDE 0.45% 1,000 ML IV SCH (22:00)
[2020-10-04] MEDS ORDERED: MAGNESIUM SULF 50% (8.12 MEQ/2 ML-1 GM VIAL) ONE (22:47)
[2020-10-04 23:01] LABS: EPI CELLS 11 /uL (0-25.1); HYALINE CASTS 22 /uL (0-3.1); PH,URINE 5.5 (5.0-8.0); URINE APPEARANCE TURBID; URINE BACTERIA 246 /uL (0-1359); URINE BILIRUBIN NEGATIVE (NEGATIVE); URINE COLOR ORANGE; URINE GLUCOSE (UA) NEGATIVE (NEGATIVE); URINE KETONE NEGATIVE (NEGATIVE); URINE LEUK ESTERASE 3+ (NEGATIVE); URINE NITRITE NEGATIVE (NEGATIVE); URINE PROTEIN 2+ (NEGATIVE); URINE RBC 342 /uL (0-23.9); URINE UROBILINOGEN 0.2 mg/dL (0.2-1.0); URINE WBC 407 /uL (0-25.8)
[2020-10-05] MEDS ORDERED: HEPARIN NA (PORCINE) 5,000 UNITS/ML 1ML VIAL ONE ×3 (06:47→22:02)
[2020-10-05] MEDS: HEPARIN NA (PORCINE) 5,000 UNITS/ML 1ML VIAL SQ SCH ×3 (06:56→22:05)
[2020-10-05] MEDS ORDERED: SODIUM CHLORIDE 0.45% 1,000 ML IV SCH ×2 (07:13→14:20)
[2020-10-05 07:30] LABS: BASO % 0.3 % (0-2.0); EOS % 0.2 % (0-4.5); HEMATOCRIT 33.3 % (32.4-45.2); HEMOGLOBIN 10.5 GM/dL (10.7-15.3); LYMPH % 5.2 % (8-40); MCH 29.2 pg (25.7-33.7); MCHC 31.5 g/dl (32.0-36.0); MEAN CELL VOLUME 92.9 fl (80-96); MONO % 3.6 % (3.8-10.2); NEUT % 90.7 % (42.8-82.8); PLATELET COUNT 351 K/MM3 (134-434); RBC 3.59 M/mm3 (3.60-5.2); RDW 21.4 % (11.6-15.6); WHITE BLOOD COUNT 13.9 K/mm3 (4.0-10.0)
[2020-10-05 07:56] LABS: ALBUMIN 2.2 g/dl (3.4-5.0); CALCIUM 8.6 mg/dL (8.5-10.1)
[2020-10-05 07:57] LABS: BLOOD UREA NITROGEN 75.9 mg/dL (7-18)
[2020-10-05 08:01] LABS: BILIRUBIN,TOTAL 0.2 mg/dL (0.2-1); CREATININE 1.9 mg/dL (0.55-1.3); TOT PROT 8.1 g/dl (6.4-8.2)
[2020-10-05 09:30] LABS: EPI CELLS >36 /uL (0-25.1); HYALINE CASTS 21 /uL (0-3.1); PH,URINE 5.5 (5.0-8.0); URINE APPEARANCE CLOUDY; URINE BACTERIA 76 /uL (0-1359); URINE BILIRUBIN NEGATIVE (NEGATIVE); URINE COLOR YELLOW; URINE GLUCOSE (UA) NEGATIVE (NEGATIVE); URINE KETONE NEGATIVE (NEGATIVE); URINE LEUK ESTERASE 2+ (NEGATIVE); URINE NITRITE NEGATIVE (NEGATIVE); URINE PROTEIN 1+ (NEGATIVE); URINE RBC 43 /uL (0-23.9); URINE UROBILINOGEN 0.2 mg/dL (0.2-1.0); URINE WBC 267 /uL (0-25.8)
[2020-10-05 15:03] LABS: CALCIUM 8.9 mg/dL (8.5-10.1)
[2020-10-05 15:04] LABS: BLOOD UREA NITROGEN 80.3 mg/dL (7-18)
[2020-10-05 15:07] LABS: CREATININE 1.9 mg/dL (0.55-1.3)
[2020-10-05] MEDS ORDERED: CEFTRIAXONE 1 GM in DEXTROSE 5%-WATER - 50 ML IVPB SCH (15:30)
[2020-10-05] MEDS: MEROPENEM 1 GM in DEXTROSE 5%-WATER 100 ML IVPB SCH (16:36)
[2020-10-05] MEDS ORDERED: MEROPENEM 1 GM VIAL (RESTRICTED TO ID) IVPB ONE (16:36)
[2020-10-05] MEDS: INSULIN SLIDING SCALE (NOVOLOG) 1 VIAL SQ SCH ×2 (16:54→22:22)
[2020-10-05 22:54] LABS: BLOOD UREA NITROGEN 85.7 mg/dL (7-18); CALCIUM 8.4 mg/dL (8.5-10.1)
[2020-10-06] MEDS ORDERED: MEROPENEM 1 GM VIAL (RESTRICTED TO ID) IVPB ONE ×2 (03:40→15:12)
[2020-10-06] MEDS: MEROPENEM 1 GM in DEXTROSE 5%-WATER 100 ML IVPB SCH ×2 (03:45→15:31)
[2020-10-06] MEDS ORDERED: HEPARIN NA (PORCINE) 5,000 UNITS/ML 1ML VIAL ONE (06:06)
[2020-10-06 06:10] LABS: BASO % 0.3 % (0-2.0); EOS % 0.1 % (0-4.5); HEMATOCRIT 32.3 % (32.4-45.2); HEMOGLOBIN 10.3 GM/dL (10.7-15.3); LYMPH % 7.4 % (8-40); MCH 29.2 pg (25.7-33.7); MCHC 31.9 g/dl (32.0-36.0); MEAN CELL VOLUME 91.7 fl (80-96); MEAN PLT VOLUME 7.9 fl (7.5-11.1); MONO % 4.9 % (3.8-10.2); NEUT % 87.3 % (42.8-82.8); PLATELET COUNT 421 K/MM3 (134-434); RBC 3.52 M/mm3 (3.60-5.2); RDW 21.4 % (11.6-15.6); WHITE BLOOD COUNT 12.6 K/mm3 (4.0-10.0)
[2020-10-06] MEDS: HEPARIN NA (PORCINE) 5,000 UNITS/ML 1ML VIAL SQ SCH ×3 (06:13→22:51)
[2020-10-06 06:32] LABS: CALCIUM 8.6 mg/dL (8.5-10.1)
[2020-10-06 06:33] LABS: ALBUMIN 2.4 g/dl (3.4-5.0); BLOOD UREA NITROGEN 85.2 mg/dL (7-18); MAGNESIUM 2.6 mg/dL (1.8-2.4)
[2020-10-06 06:36] LABS: CREATININE 2.1 mg/dL (0.55-1.3); PHOSPHOROUS 4.5 mg/dL (2.5-4.9)
[2020-10-06 06:37] LABS: BILIRUBIN,TOTAL 0.9 mg/dL (0.2-1); TOT PROT 8.7 g/dl (6.4-8.2)
[2020-10-06] MEDS: INSULIN SLIDING SCALE (NOVOLOG) 1 VIAL SQ SCH ×4 (09:24→22:50)
[2020-10-06] MEDS ORDERED: INSULIN (NOVOLOG) ASPART 100 UNITS/ML 10ML VIAL ONE (10:43)
[2020-10-06] MEDS ORDERED: DEXTROSE 5%-WATER - 1,000 ML IV SCH (12:45)
[2020-10-06] MEDS ORDERED: PT OWN MED DRAWER 7, Y5N ONE (14:40)
[2020-10-06] MEDS: COLLAGENASE CLOSTRIDIUM HIST. 30 GRAMS TUBE TP SCH (14:41)
[2020-10-06] MEDS ORDERED: DEXTROSE 5%-WATER 100 ML IVPB ONE (15:13)
[2020-10-06 20:00] LABS: CALCIUM 8.6 mg/dL (8.5-10.1)
[2020-10-06 20:01] LABS: BLOOD UREA NITROGEN 83.2 mg/dL (7-18)
[2020-10-07] MEDS ORDERED: MEROPENEM 1 GM VIAL (RESTRICTED TO ID) IVPB ONE ×2 (03:01→15:01)
[2020-10-07] MEDS ORDERED: DEXTROSE 5%-WATER 100 ML IVPB ONE ×2 (03:01→15:01)
[2020-10-07] MEDS: MEROPENEM 1 GM in DEXTROSE 5%-WATER 100 ML IVPB SCH ×2 (03:07→15:22)
[2020-10-07] MEDS: HEPARIN NA (PORCINE) 5,000 UNITS/ML 1ML VIAL SQ SCH ×3 (05:59→21:44)
[2020-10-07] MEDS: INSULIN SLIDING SCALE (NOVOLOG) 1 VIAL SQ SCH ×4 (06:01→21:47)
[2020-10-07 08:53] LABS: BASO % 0.3 % (0-2.0); EOS % 0.7 % (0-4.5); HEMATOCRIT 31.1 % (32.4-45.2); HEMOGLOBIN 10.1 GM/dL (10.7-15.3); LYMPH % 12.9 % (8-40); MCH 29.6 pg (25.7-33.7); MCHC 32.5 g/dl (32.0-36.0); MEAN PLT VOLUME 8.2 fl (7.5-11.1); MONO % 5.4 % (3.8-10.2); NEUT % 80.7 % (42.8-82.8); PLATELET COUNT 371 K/MM3 (134-434); RBC 3.42 M/mm3 (3.60-5.2); RDW 21.7 % (11.6-15.6); WHITE BLOOD COUNT 9.2 K/mm3 (4.0-10.0)
[2020-10-07 09:59] LABS: ALBUMIN 2.1 g/dl (3.4-5.0); BILIRUBIN,TOTAL 0.3 mg/dL (0.2-1); BLOOD UREA NITROGEN 80.4 mg/dL (7-18); CALCIUM 8.7 mg/dL (8.5-10.1); CREATININE 1.8 mg/dL (0.55-1.3); MAGNESIUM 2.5 mg/dL (1.8-2.4); TOT PROT 7.9 g/dl (6.4-8.2)
[2020-10-07] MEDS ORDERED: DEXTROSE 5%-WATER - 1,000 ML IV SCH (10:39)
[2020-10-07] MEDS ORDERED: INSULIN (NOVOLOG) ASPART 100 UNITS/ML 10ML VIAL ONE (11:20)
[2020-10-07] MEDS: COLLAGENASE CLOSTRIDIUM HIST. 30 GRAMS TUBE TP SCH (11:25)
[2020-10-07] MEDS ORDERED: PT OWN MED DRAWER 7, Y5N ONE (20:48)
[2020-10-08] MEDS: MEROPENEM 1 GM in DEXTROSE 5%-WATER 100 ML IVPB SCH ×2 (02:19→15:40)
[2020-10-08] MEDS ORDERED: MEROPENEM 1 GM VIAL (RESTRICTED TO ID) IVPB ONE ×2 (02:31→15:23)
[2020-10-08] MEDS ORDERED: DEXTROSE 5%-WATER 100 ML IVPB ONE ×2 (02:31→15:23)
[2020-10-08] MEDS: HEPARIN NA (PORCINE) 5,000 UNITS/ML 1ML VIAL SQ SCH ×3 (06:12→21:26)
[2020-10-08] MEDS: INSULIN SLIDING SCALE (NOVOLOG) 1 VIAL SQ SCH ×4 (06:13→21:26)
[2020-10-08 09:50] VITALS: BMI 17.3
[2020-10-08] MEDS ORDERED: ERGOCALCIFEROL (VIT D2) 50,000 UNIT (1.25 MG) CAPSULE PO SCH (10:00)
[2020-10-08] MEDS ORDERED: PT OWN MED DRAWER 7, Y5N ONE (10:35)
[2020-10-08] MEDS: ASCORBIC ACID 500 MG TABLET (FP) PO SCH (10:43)
[2020-10-08] MEDS: COLLAGENASE CLOSTRIDIUM HIST. 30 GRAMS TUBE TP SCH (10:43)
[2020-10-08] MEDS: ZINC SULFATE 220 MG CAPSULE (FP) PO SCH (10:43)
[2020-10-08 10:53] LABS: BLOOD UREA NITROGEN 63.8 mg/dL (7-18); CALCIUM 8.5 mg/dL (8.5-10.1)
[2020-10-08 10:57] LABS: CREATININE 1.7 mg/dL (0.55-1.3)
[2020-10-08] MEDS ORDERED: INSULIN (NOVOLOG) ASPART 100 UNITS/ML 10ML VIAL ONE ×2 (12:15→20:44)
[2020-10-08] MEDS: ACETAMINOPHEN 650 MG/20.3 ML ORAL SOLUTION (CUPS) PO PRN ×2 (12:18→18:09)
[2020-10-08] MEDS: DEXTROSE 5%-WATER - 1,000 ML IV SCH (16:26)
[2020-10-08] MEDS: AMINO ACIDS/PROTEIN HYDROLYS 30 ML LIQUID.PKT PO SCH (17:36)
[2020-10-08] MEDS: CEFTRIAXONE 1 GM in DEXTROSE 5%-WATER - 50 ML IVPB SCH (23:44)
[2020-10-09] MEDS ORDERED: DEXTROSE 5%-WATER - 50 ML IVPB ONE (01:43)
[2020-10-09] MEDS ORDERED: cefTRIAXone SODIUM 1 GM VIAL ONE (01:43)
[2020-10-09] MEDS: HEPARIN NA (PORCINE) 5,000 UNITS/ML 1ML VIAL SQ SCH ×3 (05:55→21:05)
[2020-10-09] MEDS: INSULIN SLIDING SCALE (NOVOLOG) 1 VIAL SQ SCH ×4 (06:42→21:05)
[2020-10-09 08:41] LABS: HEMOGLOBIN 9.4 GM/dL (10.7-15.3); MCH 29.7 pg (25.7-33.7); MCHC 32.6 g/dl (32.0-36.0); MEAN CELL VOLUME 91.1 fl (80-96); MEAN PLT VOLUME 8.7 fl (7.5-11.1); PLATELET COUNT 312 K/MM3 (134-434); RBC 3.18 M/mm3 (3.60-5.2); RDW 21.1 % (11.6-15.6); WHITE BLOOD COUNT 7.8 K/mm3 (4.0-10.0)
[2020-10-09 09:10] LABS: BLOOD UREA NITROGEN 64.2 mg/dL (7-18)
[2020-10-09 09:12] LABS: CALCIUM 8.5 mg/dL (8.5-10.1)
[2020-10-09 09:13] LABS: MAGNESIUM 2.2 mg/dL (1.8-2.4)
[2020-10-09 09:16] LABS: CREATININE 1.6 mg/dL (0.55-1.3)
[2020-10-09] MEDS: COLLAGENASE CLOSTRIDIUM HIST. 30 GRAMS TUBE TP SCH (10:30)
[2020-10-09] MEDS: ZINC SULFATE 220 MG CAPSULE (FP) PO SCH (10:30)
[2020-10-09] MEDS: AMINO ACIDS/PROTEIN HYDROLYS 30 ML LIQUID.PKT PO SCH ×2 (10:30→17:26)
[2020-10-09] MEDS: MULTIVITAMINS (DAILY MVI) TABLET (FP) PO SCH (10:30)
[2020-10-09] MEDS: CEFTRIAXONE 1 GM in DEXTROSE 5%-WATER - 50 ML IVPB SCH (10:30)
[2020-10-09] MEDS: ASCORBIC ACID 500 MG TABLET (FP) PO SCH (10:30)
[2020-10-09] MEDS: DEXTROSE 5%-WATER - 1,000 ML IV SCH (17:26)
[2020-10-10] MEDS: HEPARIN NA (PORCINE) 5,000 UNITS/ML 1ML VIAL SQ SCH ×3 (06:14→21:23)
[2020-10-10] MEDS: INSULIN SLIDING SCALE (NOVOLOG) 1 VIAL SQ SCH ×4 (07:14→22:04)
[2020-10-10 08:41] LABS: CALCIUM 8.2 mg/dL (8.5-10.1)
[2020-10-10 08:42] LABS: BLOOD UREA NITROGEN 60.2 mg/dL (7-18)
[2020-10-10 08:45] LABS: CREATININE 1.7 mg/dL (0.55-1.3)
[2020-10-10] MEDS ORDERED: cefTRIAXone SODIUM 1 GM VIAL ONE (10:56)
[2020-10-10] MEDS ORDERED: DEXTROSE 5%-WATER - 50 ML IVPB ONE (10:57)
[2020-10-10] MEDS: ZINC SULFATE 220 MG CAPSULE (FP) PO SCH (11:10)
[2020-10-10] MEDS: AMINO ACIDS/PROTEIN HYDROLYS 30 ML LIQUID.PKT PO SCH ×2 (11:10→16:44)
[2020-10-10] MEDS: ASCORBIC ACID 500 MG TABLET (FP) PO SCH (11:10)
[2020-10-10] MEDS: CEFTRIAXONE 1 GM in DEXTROSE 5%-WATER - 50 ML IVPB SCH (11:10)
[2020-10-10] MEDS: MULTIVITAMINS (DAILY MVI) TABLET (FP) PO SCH (11:10)
[2020-10-10] MEDS: COLLAGENASE CLOSTRIDIUM HIST. 30 GRAMS TUBE TP SCH (11:10)
[2020-10-10] MEDS ORDERED: INSULIN (NOVOLOG) ASPART 100 UNITS/ML 10ML VIAL ONE (21:38)
[2020-10-11] MEDS: HEPARIN NA (PORCINE) 5,000 UNITS/ML 1ML VIAL SQ SCH ×2 (06:24→15:31)
[2020-10-11] MEDS: INSULIN SLIDING SCALE (NOVOLOG) 1 VIAL SQ SCH ×2 (06:27→12:54)
[2020-10-11 08:25] LABS: HEMOGLOBIN 9.9 GM/dL (10.7-15.3); MCH 29.5 pg (25.7-33.7); MCHC 32.1 g/dl (32.0-36.0); MEAN PLT VOLUME 9.1 fl (7.5-11.1); PLATELET COUNT 255 K/MM3 (134-434); RBC 3.37 M/mm3 (3.60-5.2); RDW 20.6 % (11.6-15.6); WHITE BLOOD COUNT 6.3 K/mm3 (4.0-10.0)
[2020-10-11 08:46] LABS: CALCIUM 8.4 mg/dL (8.5-10.1)
[2020-10-11 08:47] LABS: BLOOD UREA NITROGEN 56.9 mg/dL (7-18)
[2020-10-11 08:50] LABS: CREATININE 1.5 mg/dL (0.55-1.3)
[2020-10-11] MEDS ORDERED: cefTRIAXone SODIUM 1 GM VIAL ONE (09:52)
[2020-10-11] MEDS ORDERED: DEXTROSE 5%-WATER - 50 ML IVPB ONE (09:52)
[2020-10-11] MEDS: CEFTRIAXONE 1 GM in DEXTROSE 5%-WATER - 50 ML IVPB SCH (09:59)
[2020-10-11] MEDS: ASCORBIC ACID 500 MG TABLET (FP) PO SCH (09:59)
[2020-10-11] MEDS ORDERED: TORSEMIDE 10 MG TABLET PO SCH (10:00)
[2020-10-11] MEDS ORDERED: CEFUROXIME AXETIL 250 MG TABLET PO SCH ×2 (10:00→22:00)
[2020-10-11] MEDS: MULTIVITAMINS (DAILY MVI) TABLET (FP) PO SCH (10:00)
[2020-10-11] MEDS: AMINO ACIDS/PROTEIN HYDROLYS 30 ML LIQUID.PKT PO SCH (10:01)
[2020-10-11] MEDS: ZINC SULFATE 220 MG CAPSULE (FP) PO SCH (10:01)
[2020-10-11] MEDS ORDERED: SODIUM BICARBONATE 650 MG TABLET PO SCH (12:00)
[2020-10-11 12:24] VITALS: BP 130/74; PULSE 90; TEMP 97.7
[2020-10-11] MEDS ORDERED: PT OWN MED DRAWER 7, Y5N ONE (13:21)
== END 2020-10-11 14:53 | DRG 193 ==
LOC: JER 14:21 → JERBED 19:44 → J8W 10-06 06:42
PROVIDERS: ATTEND Family Medicine
DX: J18.9 Pneumonia, unspecified organism (principal); L89.154 Pressure ulcer of sacral region, stage 4; G93.41 Metabolic encephalopathy; I13.0 Hypertensive heart and chronic kidney disease with heart failure and stage 1 through stage 4 chronic kidney disease, or unspecified chronic kidney disease; I50.42 Chronic combined systolic (congestive) and diastolic (congestive) heart failure; E87.0 Hyperosmolality and hypernatremia; R64 Cachexia; N17.9 Acute kidney failure, unspecified; N39.0 Urinary tract infection, site not specified; I42.9 Cardiomyopathy, unspecified; M86.8X7 Other osteomyelitis, ankle and foot; A52.16 Charcot's arthropathy (tabetic); Z68.1 Body mass index [BMI] 19.9 or less, adult; E11.40 Type 2 diabetes mellitus with diabetic neuropathy, unspecified; Z89.512 Acquired absence of left leg below knee; D50.9 Iron deficiency anemia, unspecified; E78.5 Hyperlipidemia, unspecified; E11.649 Type 2 diabetes mellitus with hypoglycemia without coma; E11.22 Type 2 diabetes mellitus with diabetic chronic kidney disease; N18.9 Chronic kidney disease, unspecified; D64.9 Anemia, unspecified; R62.7 Adult failure to thrive; E11.69 Type 2 diabetes mellitus with other specified complication; E11.621 Type 2 diabetes mellitus with foot ulcer; L97.519 Non-pressure chronic ulcer of other part of right foot with unspecified severity; Z79.84 Long term (current) use of oral hypoglycemic drugs
CPT/HCPCS: 36415; 70450-TC; 71045-TC-FY; 80048; 80053; 81003; 82565; 82728; 82962; 83605; 83615; 83735; 84100; 84156; 84484; 85025; 85027; 85610; 85730; 86140; 87040; 87070; 87086; 87186; 87205; 93005; 93010; 99285-25; C9803; J1644; U0003

== ENCOUNTER 2021-02-15 13:55 | Inpatient (IN) | payer OTHER ==
[2021-02-15 14:58] LABS: BASO % 0.4 % (0-2.0); EOS % 1.2 % (0-4.5); HEMATOCRIT 28.6 % (32.4-45.2); HEMOGLOBIN 9.2 GM/dL (10.7-15.3); LYMPH % 6.3 % (8-40); MCH 30.7 pg (25.7-33.7); MCHC 32.2 g/dl (32.0-36.0); MEAN CELL VOLUME 95.2 fl (80-96); MEAN PLT VOLUME 8.1 fl (7.5-11.1); MONO % 5.4 % (3.8-10.2); NEUT % 86.7 % (42.8-82.8); PLATELET COUNT 303 K/MM3 (134-434); RBC 3.01 M/mm3 (3.60-5.2); RDW 14.9 % (11.6-15.6); WHITE BLOOD COUNT 13.4 K/mm3 (4.0-10.0)
[2021-02-15 15:04] LABS: INR 1.04 (0.83-1.09); PROTHROMBIN TIME (PATIENT) 12.6 SEC (9.7-13.0)
[2021-02-15 15:19] LABS: CHLORIDE 112 mmol/L (98-107); SODIUM 140 mmol/L (136-145)
[2021-02-15 15:21] LABS: ALBUMIN 2.2 g/dl (3.4-5.0); ANION GAP 8 MMOL/L (8-16); CALCIUM 8.7 mg/dL (8.5-10.1); CO2 19 mmol/L (21-32); GLUCOSE,RANDOM 178 mg/dL (74-106); MAGNESIUM 2.2 mg/dL (1.8-2.4)
[2021-02-15 15:24] LABS: CREATININE 2.5 mg/dL (0.55-1.3); SGOT/AST 15 U/L (15-37); SGPT/ALT 24 U/L (13-61)
[2021-02-15 15:26] LABS: BILIRUBIN,TOTAL 0.2 mg/dL (0.2-1); TOT PROT 8.1 g/dl (6.4-8.2)
[2021-02-15 15:27] LABS: ALK PHOS 164 U/L (45-117)
[2021-02-15 15:29] LABS: BLOOD UREA NITROGEN 125.3 mg/dL (7-18)
[2021-02-15] MEDS ORDERED: SODIUM CHLORIDE 0.9% 500 ML INFUS.BAG IV ONE (15:31)
[2021-02-15] MEDS ORDERED: MEROPENEM 500 MG in DEXTROSE 5%-WATER 100 ML IVPB ONE (15:51)
[2021-02-15] MEDS ORDERED: MEROPENEM 500 MG VIAL (RESTRICTED TO ID) IVPB ONE (16:49)
[2021-02-15] MEDS ORDERED: ACETAMINOPHEN 1000 MG/100 ML VIAL (NON FORMULARY) IVPB ONE (17:48)
[2021-02-15] MEDS ORDERED: ACETAMINOPHEN INJECTION 100 ML IVPB ONE (17:49)
[2021-02-15 20:40] LABS: EPI CELLS >36 /uL (0-25.1); HYALINE CASTS 38 /uL (0-3.1); URINE APPEARANCE TURBID; URINE BACTERIA >9,000 /uL (0-1359); URINE BILIRUBIN NEGATIVE (NEGATIVE); URINE COLOR ORANGE; URINE GLUCOSE (UA) NEGATIVE (NEGATIVE); URINE KETONE NEGATIVE (NEGATIVE); URINE LEUK ESTERASE 3+ (NEGATIVE); URINE NITRITE NEGATIVE (NEGATIVE); URINE PROTEIN 2+ (NEGATIVE); URINE UROBILINOGEN 0.2 mg/dL (0.2-1.0); URINE WBC 24905 /uL (0-25.8)
[2021-02-15 21:16] LABS: URINE RBC 1675 /uL (0-23.9); YEAST NONE SEEN (NEGATIVE)
[2021-02-16] MEDS ORDERED: MEROPENEM 500 MG in DEXTROSE 5%-WATER 100 ML IVPB SCH ×2 (03:45→05:00)
[2021-02-16] MEDS ORDERED: MEROPENEM 500 MG VIAL (RESTRICTED TO ID) IVPB ONE (04:14)
[2021-02-16] MEDS ORDERED: DEXTROSE 5%-WATER 100 ML IVPB ONE (04:15)
[2021-02-16 08:06] LABS: BASO % 0.7 % (0-2.0); EOS % 2.1 % (0-4.5); HEMATOCRIT 28.5 % (32.4-45.2); HEMOGLOBIN 9.5 GM/dL (10.7-15.3); LYMPH % 9.6 % (8-40); MCH 31.8 pg (25.7-33.7); MCHC 33.2 g/dl (32.0-36.0); MEAN CELL VOLUME 95.8 fl (80-96); MEAN PLT VOLUME 8.1 fl (7.5-11.1); MONO % 6.8 % (3.8-10.2); NEUT % 80.8 % (42.8-82.8); PLATELET COUNT 266 K/MM3 (134-434); RBC 2.98 M/mm3 (3.60-5.2); RDW 14.4 % (11.6-15.6); WHITE BLOOD COUNT 10.2 K/mm3 (4.0-10.0)
[2021-02-16] MEDS ORDERED: ACETAMINOPHEN 325 MG TABLET (FP) PO ONE (08:15)
[2021-02-16 08:41] LABS: CHLORIDE 113 mmol/L (98-107); SODIUM 140 mmol/L (136-145)
[2021-02-16 08:45] LABS: ALBUMIN 2.1 g/dl (3.4-5.0); ANION GAP 9 MMOL/L (8-16); CALCIUM 8.5 mg/dL (8.5-10.1); CO2 18 mmol/L (21-32); GLUCOSE,RANDOM 237 mg/dL (74-106)
[2021-02-16 08:48] LABS: CREATININE 2.1 mg/dL (0.55-1.3); SGOT/AST 11 U/L (15-37); SGPT/ALT 23 U/L (13-61)
[2021-02-16 08:49] LABS: ALK PHOS 163 U/L (45-117); TOT PROT 7.9 g/dl (6.4-8.2)
[2021-02-16 08:50] LABS: BILIRUBIN,TOTAL 0.3 mg/dL (0.2-1)
[2021-02-16 08:54] LABS: BLOOD UREA NITROGEN 109.1 mg/dL (7-18)
[2021-02-16] MEDS: HEPARIN NA (PORCINE) 5,000 UNITS/ML 1ML VIAL SQ SCH ×2 (10:20→21:47)
[2021-02-16 12:47] VITALS: BMI 17.9
[2021-02-16] MEDS ORDERED: SODIUM CHLORIDE 1,000 ML IV SCH (13:00)
[2021-02-16] MEDS ORDERED: PIPERACILLIN/TAZOBACTAM 2.25 GM VIAL IVPB ONE ×2 (15:25→20:46)
[2021-02-16] MEDS ORDERED: DEXTROSE 5%-WATER - 50 ML IVPB ONE ×2 (15:25→20:46)
[2021-02-16] MEDS: PIPERACILLIN/TAZOB 2.25 GM 2.25 GM in DEXTROSE 5%-WATER - 50 ML IVPB SCH ×2 (15:40→21:45)
[2021-02-16] MEDS ORDERED: ACETAMINOPHEN 325 MG TABLET (FP) PO PRN (16:37)
[2021-02-16] MEDS ORDERED: PIPERACILLIN/TAZOB 2.25 GM 2.25 GM in DEXTROSE 5%-WATER - 50 ML IVPB SCH (18:00)
[2021-02-16] MEDS ORDERED: INSULIN (NOVOLOG) ASPART 100 UNITS/ML 10ML VIAL ONE (20:48)
[2021-02-16] MEDS: MIRTAZAPINE 15 MG TABLET (FP) PO SCH (21:46)
[2021-02-16] MEDS: ATORVASTATIN CA 20 MG TABLET (FP) PO SCH (21:46)
[2021-02-16] MEDS: INSULIN SLIDING SCALE (NOVOLOG) 1 VIAL SQ SCH (21:50)
[2021-02-17] MEDS ORDERED: PIPERACILLIN/TAZOBACTAM 2.25 GM VIAL IVPB ONE ×4 (01:34→21:52)
[2021-02-17] MEDS ORDERED: DEXTROSE 5%-WATER - 50 ML IVPB ONE ×4 (01:34→21:52)
[2021-02-17] MEDS: PIPERACILLIN/TAZOB 2.25 GM 2.25 GM in DEXTROSE 5%-WATER - 50 ML IVPB SCH ×4 (03:00→21:35)
[2021-02-17] MEDS: INSULIN SLIDING SCALE (NOVOLOG) 1 VIAL SQ SCH ×4 (06:33→22:19)
[2021-02-17 08:30] LABS: HEMATOCRIT 25.8 % (32.4-45.2); HEMOGLOBIN 8.5 GM/dL (10.7-15.3); MCH 30.9 pg (25.7-33.7); MCHC 32.8 g/dl (32.0-36.0); MEAN CELL VOLUME 94.2 fl (80-96); MEAN PLT VOLUME 8.1 fl (7.5-11.1); PLATELET COUNT 297 K/MM3 (134-434); RBC 2.74 M/mm3 (3.60-5.2); RDW 14.8 % (11.6-15.6); WHITE BLOOD COUNT 9.2 K/mm3 (4.0-10.0)
[2021-02-17 08:50] LABS: CALCIUM 8.4 mg/dL (8.5-10.1)
[2021-02-17 08:51] LABS: BLOOD UREA NITROGEN 97.5 mg/dL (7-18)
[2021-02-17 08:54] LABS: PHOSPHOROUS 4.5 mg/dL (2.5-4.9)
[2021-02-17 08:55] LABS: CREATININE 1.9 mg/dL (0.55-1.3); URIC ACID 6.6 mg/dL (2.6-7.2)
[2021-02-17 08:56] LABS: BILIRUBIN,TOTAL 0.2 mg/dL (0.2-1)
[2021-02-17 08:57] LABS: TOT PROT 7.4 g/dl (6.4-8.2)
[2021-02-17] MEDS: COLLAGENASE CLOSTRIDIUM HIST. 30 GRAMS TUBE TP SCH (11:00)
[2021-02-17] MEDS: PANTOPRAZOLE 40 MG TABLET PO SCH (11:00)
[2021-02-17] MEDS: HEPARIN NA (PORCINE) 5,000 UNITS/ML 1ML VIAL SQ SCH ×2 (11:00→22:17)
[2021-02-17] MEDS ORDERED: LACTATED RINGERS SOLUTION 1,000 ML/1,000 ML INFUS.BAG IV SCH (12:30)
[2021-02-17] MEDS: amLODIPine BESYLATE 5 MG TABLET (FP) PO SCH (14:03)
[2021-02-17] MEDS ORDERED: traMADol HCL 50 MG TABLET PO PRN (16:44)
[2021-02-17] MEDS: ATORVASTATIN CA 20 MG TABLET (FP) PO SCH (22:15)
[2021-02-17] MEDS: MIRTAZAPINE 15 MG TABLET (FP) PO SCH (22:16)
[2021-02-18] MEDS ORDERED: PIPERACILLIN/TAZOBACTAM 2.25 GM VIAL IVPB ONE ×2 (02:55→09:10)
[2021-02-18] MEDS ORDERED: DEXTROSE 5%-WATER - 50 ML IVPB ONE ×2 (02:55→09:11)
[2021-02-18] MEDS: PIPERACILLIN/TAZOB 2.25 GM 2.25 GM in DEXTROSE 5%-WATER - 50 ML IVPB SCH ×2 (02:58→09:00)
[2021-02-18] MEDS: INSULIN SLIDING SCALE (NOVOLOG) 1 VIAL SQ SCH ×3 (06:14→17:13)
[2021-02-18 08:23] LABS: BASO % 1.1 % (0-2.0); HEMATOCRIT 26.5 % (32.4-45.2); HEMOGLOBIN 8.8 GM/dL (10.7-15.3); LYMPH % 13.6 % (8-40); MCH 31.3 pg (25.7-33.7); MCHC 33.4 g/dl (32.0-36.0); MEAN CELL VOLUME 93.8 fl (80-96); MEAN PLT VOLUME 7.8 fl (7.5-11.1); MONO % 8.9 % (3.8-10.2); NEUT % 73.4 % (42.8-82.8); PLATELET COUNT 285 K/MM3 (134-434); RBC 2.82 M/mm3 (3.60-5.2); RDW 14.6 % (11.6-15.6); WHITE BLOOD COUNT 8.4 K/mm3 (4.0-10.0)
[2021-02-18 08:57] LABS: CALCIUM 8.3 mg/dL (8.5-10.1)
[2021-02-18 08:58] LABS: MAGNESIUM 1.9 mg/dL (1.8-2.4)
[2021-02-18 09:00] LABS: BLOOD UREA NITROGEN 83.6 mg/dL (7-18)
[2021-02-18 09:01] LABS: PHOSPHOROUS 4.4 mg/dL (2.5-4.9)
[2021-02-18 09:02] LABS: TOT PROT 7.4 g/dl (6.4-8.2)
[2021-02-18 09:03] LABS: CREATININE 1.9 mg/dL (0.55-1.3)
[2021-02-18 09:04] LABS: BILIRUBIN,TOTAL 0.2 mg/dL (0.2-1)
[2021-02-18] MEDS: COLLAGENASE CLOSTRIDIUM HIST. 30 GRAMS TUBE TP SCH (10:38)
[2021-02-18] MEDS: PANTOPRAZOLE 40 MG TABLET PO SCH (10:38)
[2021-02-18] MEDS: HEPARIN NA (PORCINE) 5,000 UNITS/ML 1ML VIAL SQ SCH (10:38)
[2021-02-18] MEDS: amLODIPine BESYLATE 5 MG TABLET (FP) PO SCH (10:38)
[2021-02-18] MEDS ORDERED: ERTAPENEM SODIUM 0.5 GM in SODIUM CHLORIDE 50 ML IVPB SCH (14:00)
[2021-02-18 14:40] VITALS: BP 138/78; PULSE 96; TEMP 98.2
== END 2021-02-18 21:12 | DRG 682 ==
LOC: JER 13:55 → JERBED 15:49 → J6S 20:26
PROVIDERS: ADMIT Family Medicine; ATTEND Family Medicine
PROC: 02HV33Z Insertion of Infusion Device into Superior Vena Cava, Percutaneous Approach (ICD-10-PCS; principal; 2021-02-18)
DX: N17.9 Acute kidney failure, unspecified (principal); L89.154 Pressure ulcer of sacral region, stage 4; N39.0 Urinary tract infection, site not specified; I13.0 Hypertensive heart and chronic kidney disease with heart failure and stage 1 through stage 4 chronic kidney disease, or unspecified chronic kidney disease; I50.42 Chronic combined systolic (congestive) and diastolic (congestive) heart failure; E85.9 Amyloidosis, unspecified; N18.4 Chronic kidney disease, stage 4 (severe); E87.5 Hyperkalemia; Z97.8 Presence of other specified devices; E78.5 Hyperlipidemia, unspecified
CPT/HCPCS: 36415; 36569; 71045-TC-FY; 80053; 81003; 82728; 82962; 83540; 83550; 83735; 84100; 84550; 85025; 85027; 85610; 86850; 86900; 86901; 87070; 87086; 87186; 87205; 93005; 93010; 99285-25; C9803; J0131; J1644; U0003; U0005